=== PATIENT | male | born 1955 | race Caucasian/White ===

== ENCOUNTER → 2018-01-21 10:15 | Outpatient (CLI) | payer MEDICARE, OTHER, SELFPAY ==
--- NOTE | 2018-01-21 10:44 | STE_ITS ---
Reason For Study: AFIB Stress Results Protocol: Dobutamine Maximum Predicted HR: 160 bpm Target HR: 136 bpm% Maximum Predicted HR: 85 % DurationHeart Rate Stage (mm:ss) (bpm) BPDose Comment BASELINE 74 169/10 0 0.3 ML DEFINITY STAGE 1 4:00 76 167/[id number] ML DEFINITY STAGE 2 3:00 96 176/44278.00 STAGE 3 3:00 10 8 178/45418.00.25 MG ATROPINE/0.1 ML DEFINITY STAGE 4 3:59 13 6 135/8740.00.25 MG ATROPINE/0.1 ML DEFINITY RECOVERY 100 139/1 07 0.1 ML DEFINITY Stress Duration: 13:59 mm:ss Maximum Stress HR: 136 bpm Baseline Echocardiogram Findings Stress Echo Wall motion Data Resting WMIntermediate WMStress WM Resting Wall Motion Wall Motion Stress No regional wall motion No regional wall motion abnormalities noted. abnormalities noted. EKG Data The baseline ECG demonstrates normal sinus rhythm with at rate of _ beats per minute. The patient was titrated from 10 mcg to a maximum of 40 mcg of dobutamine during the stress. The maximum heart rate attained was 136 beats per minute. This was 85% of maximum predicted heart rate. During dobutamine infusion, there were no ST or T wave changes noted to suggest ischemia. No clinical angina was noted. Interpretation Summary The study was technically difficult. Contrast injection was performed. Normal adequate dobutamine echocardiogram. Negative for ischemia by EKG and echocardiographic criteria. No anginal symptoms noted. Rare PVCs and ventricular couplets noted, which is a nonspecific finding given dobutamine infusion. Hypertensive blood pressure response to dobutamine. Final LVEF is 75%. Decreased sensitivity due to poor echo windows requiring Definity agent. Test terminated due to the attainment of target heart rate. No complications. Ordering Physician: Keron Monteiro Referring Physician: Keron Monteiro Performed By: Viji Marie, CLARACS, RVT
[2018-01-21 11:55] LABS: Cholesterol 137 mg/dL (200); High Density Lipoprotein 47 mg/dL; Triglycerides 111 mg/dL; Very Low Density Lipoprotein 22 mg/dL (5-40)
== END ==
PROVIDERS: Family Provider Family Medicine; PCP Family Medicine; Visit Provider Internal Medicine Cardiovascular Disease
DX: I48.91 Unspecified atrial fibrillation (principal); I48.92 Unspecified atrial flutter; E78.5 Hyperlipidemia, unspecified
CPT/HCPCS: 36415; 80061; 93017; 93350; J7030; Q9957; A4216; C8928

== ENCOUNTER → 2018-04-17 07:53 | Outpatient (CLI) | payer MEDICARE, OTHER, SELFPAY ==
[2018-04-17] VITALS (8 sets, daily range): BP systolic 133–174; BP diastolic 83–108; PULSE 63–86; RESP 16–18; TEMP 36.2–36.7; O2SAT 92–96; BMI 27.7
[2018-04-17] MEDS: Acetaminophen 500 MG Tablet 1000 MG PO (08:41)
[2018-04-17] MEDS: DiphenhydrAMINE 50 MG/ML Syringe 25 MG IV (08:43)
[2018-04-17] MEDS: MethylPREDNISolone 125 MG/2 ML Vial 100 MG IV (08:45)
== END ==
PROVIDERS: Family Provider Family Medicine; PCP Family Medicine; Visit Provider Internal Medicine Hematology & Oncology
DX: G35 Multiple sclerosis (principal)
CPT/HCPCS: 96365; 96366 ×3; 96374; 96375; J7040; J7050; A4216; J2350

== ENCOUNTER → 2018-05-06 12:29 | Outpatient (CLI) | payer MEDICARE, OTHER, SELFPAY | PROVIDERS: Family Provider Family Medicine; PCP Family Medicine; Visit Provider Urology | DX: N39.0 Urinary tract infection, site not specified (principal) | CPT/HCPCS: 87086; 87088; 87186 ==

== ENCOUNTER 2018-05-28 10:55 | Inpatient (IN) | payer MEDICARE, OTHER, SELFPAY ==
[2018-05-28] VITALS (9 sets, daily range): BP systolic 119–151; BP diastolic 79–98; PULSE 68–88; RESP 15–20; TEMP 36.9–37.1; O2SAT 90–96; BMI 27.7; BMI 27.9
--- NOTE | 2018-05-28 12:54 | ED.VIS.GEN ---
History of Present Illness Chief Complaint: GI Bleed Informant: Patient, Family Onset: Yesterday Context: Gradual Onset Timing: Intermittent - 15-20 episodes Quality: Red blood, somewhat maroon-orange Location: Rectal Current Severity: Moderate Maximum Severity: Moderate Worsened by: Nothing Relieved by: Nothing Associated Symptoms: no abd pain. no n/v. malaise and a little lightheaded. no presyncope/syncop Narrative: On Eliquis for PE last july. Prior similar symptoms: No - Past Medical History (1) Atrial septal defect Status: Chronic (2) Hypertension Status: Chronic (3) Multiple sclerosis Status: Chronic (4) Obstructive sleep apnea Status: Chronic (5) Paroxysmal atrial fibrillation Status: Chronic (6) Pulmonary embolism Status: Chronic (7) Bladder cancer Status: Resolved Past Medical History - Allergies and Home Meds Allergies/Adverse Reactions: Allergies No Known Allergies Allergy (Verified 02/25/18 09:45) Primary Care Physician: Amanuel Duckworth III, MD [Primary Care Provider] - Surgical History: - - colonoscopy last week Lives: Spouse/ Significant Other Smoking Status: Never smoker - Family History Paternal Family History: Family History (Last Reviewed 02/27/18 @ 08:45 by ANNELISE Joseph) Father CAD (coronary artery disease) Hypertension Mother Hypertension Family History: Reports: Hypertension Sibling Family History: Family History (Last Reviewed 02/27/18 @ 08:45 by ANNELISE Joseph) Father CAD (coronary artery disease) Hypertension Mother Hypertension Family History: Reports: - - Sister with history of MS and due to a pulmonary embolism Maternal Family History: Family History (Last Reviewed 02/27/18 @ 08:45 by ANNELISE Joseph) Father CAD (coronary artery disease) Hypertension Mother Hypertension Family History: Reports: No pertinent history Review of Systems All systems negative except as indicated General: Reports: Malaise, - - a little lightheaded Gastrointestinal: Reports: Hematochezia. Denies: Abdominal pain, Nausea, Vomiting, Melena Neurological: Reports: Parasthesia - on left side, chronic Physical Exam Vital Signs/Narrative: Vital Signs Temp Pulse Resp BP Pulse Ox 05/28/18 12:35 79 19 H 125/97 H 91 05/28/18 10:56 98.4 F 79 16 119/85 H 96 General: Well nourished, Well developed Head: Normocephalic, Atraumatic Eyes: Perrl, EOMI ENT: Moist mucous membranes, No rhinorrhea Neck: Supple, Nontender Cardiovascular: Regular rate, Regular rhythm, No murmurs Respiratory: No distress, CTA bilaterally, Chest nontender Abdomen: Soft, Nontender, Nondistended, Hyperactive bowel sounds Rectal: Nontender Back: Nontender, Normal Inspection Extremities: Nontender, No edema Skin: Normal color, No rash Neurological: Alert, Oriented x3, Cranial nerves II-XII grossly intact, Normal Strength Psychological: Normal affect Diagnostic/Tx/Re-eval Laboratory Results 05/28/18 05/28/18 05/28/18 Range/Units 11:10 11:10 11:10 WBC 9.3 (4.4-11.0) K/mm3 RBC 5.94 (4.6-6.2) M/mm3 Hgb 17.0 H (13.0-16.5) g/dl Hct 51.8 (40-54) % MCV 87.2 (80-94) fL MCH 28.6 (27.0-32.0) pg MCHC 32.8 (32-36) g/gl RDW 13.6 (11.6-14.6) % RDW Differential 43.3 (35.1-43.9) fl Plt Count 234 (150-450) K/mm3 MPV 10.8 (6.2-12.0) fl Immature Gran % (Auto) 0.300 (0.0-0.9) % Neut % (Auto) 63.2 (47-70) % Lymph % (Auto) 18.6 L (19-41) % [place] % (Auto) 15.6 H (0-10) % Eos % (Auto) 2.0 (0-5) % Baso % (Auto) 0.3 (0-1) % Absolute Neuts (auto) 5.9 (2.0-7.7) X10^3/uL Absolute Lymphs (auto) 1.73 (0.83-4.51) X10^3/ul Total Counted Not Reportable Sodium 144 (136-145) mmol/L Potassium 4.3 (3.5-5.1) mmol/L Chloride 108 H (98-107) mmol/L Carbon Dioxide 27.0 (21.0-32.0) mmol/L Anion Gap 9 (5-15) BUN 20 H (7-18) mg/dL Creatinine 1.44 H (0.70-1.30) mg/dL Estim Creat Clear Calc 70.52 ml/min Est GFR (MDRD) Af Amer 64 (>60) mL/min Est GFR (MDRD) Non-Af 53 L (>60) mL/min BUN/Creatinine Ratio 13.9 (10-20) RATIO Glucose 78 (74-106) mg/dL Calcium 9.2 (8.5-10.1) mg/dL Total Bilirubin 0.70 (0.20-1.00) mg/dL AST 16 (15-37) U/L ALT 19 (16-61) U/L Alkaline Phosphatase 109 (45-117) U/L Total Protein 7.3 (6.4-8.2) g/dL Albumin 3.3 (3.2-5.0) g/dL Globulin 4.0 (2.2-4.2) g/dL Albumin/Globulin Ratio 0.8 L (0.9-2.4) RATIO Blood Type O POSITIVE Antibody Screen NEGATIVE - Medical Decision Making Patient remained clinically and hemodynamically stable. Rectal exam shows dark red blood without pooling or melena. No active bleeding at this time. Labs show an elevated BUN but only 20, his hemoglobin is 17, stable. I am mostly concerned about the fact that he is anticoagulated on Eliquis. His last colonoscopy was 2 years ago and showed no diverticulosis, just internal and external hemorrhoids but otherwise normal. I suspect this is a lower GI bleed, however not able to rule out the possibility of an upper. No nausea or vomiting or abdominal discomfort and his exam is very benign. Discussed with Dr. Redman since we have no acid cutter available here, she is comfortable consulting and having him admitted here. Discussed with Dr. Stern, requests PCU. ED Disposition - Plan for ED Patient: Disposition: Acute Care Hospital [facility] Chief Complaint: GI Bleed Diagnosis: GI bleeding, Anticoagulated
--- NOTE | 2018-05-28 12:57 | EKG12_ITS ---
Test Reason : Blood Pressure : / mmHG Vent. Rate : 083 BPM Atrial Rate : 083 BPM P-R Int : 158 ms QRS Dur : 090 ms QT Int : 378 ms P-R-T Axes : 019 -50 014 degrees QTc Int : 444 ms Normal sinus rhythm Left anterior fascicular block Abnormal ECG Confirmed by CHARMAINE WINCHESTER, ESTUARDO ([id number]), acquisition editor SHANTI PARKS ([id number]) on 06/01/2018 2:38:55 PM Referred By: NATANAEL Confirmed By:ESTUARDO MONTANO MD
[2018-05-28 13:04] LABS: Absolute Lymphocyte Count 1.73 X10^3/ul (0.83-4.51); Absolute Neutrophil Count 5.9 X10^3/uL (2.0-7.7); Basophil# 0.03 X10^3/uL; Basophil% 0.3 % (0-1); Eosinophil# 0.19 X10^3/uL; Hematocrit 51.8 % (40-54); Lymphocyte # 1.73 X10^3/ul (4.0); Lymphocyte % 18.6 % (19-41); Mean Corp Hgb Conc 32.8 g/gl (32-36); Mean Corpuscular Hgb 28.6 pg (27.0-32.0); Mean Corpuscular Volume 87.2 fL (80-94); Mean Platelet Vol. 10.8 fl (6.2-12.0); Monocyte# 1.45 X10^3/uL; Monocyte% 15.6 % (0-10); Neutrophil # 5.89 X10^3/uL (2.7-7.7); Neutrophil % 63.2 % (47-70); Platelet Count 234 K/mm3 (150-450); RBC Distribution Width CV 13.6 % (11.6-14.6); RBC Distribution Width SD 43.3 fl (35.1-43.9); Red Blood Count 5.94 M/mm3 (4.6-6.2); White Blood Count 9.3 K/mm3 (4.4-11.0)
[2018-05-28 13:05] LABS: POSITIVE COUNT NO; POSITIVE DIFFERENTIAL NO; POSITIVE MORPHOLOGY NO
[2018-05-28 13:15] LABS: ALB/GLOB Ratio 0.8 RATIO (0.9-2.4); AST(SGOT) 16 U/L (15-37); Alanine Aminotransfer ALT/SGPT 19 U/L (16-61); Albumin, Serum 3.3 g/dL (3.2-5.0); Alkaline Phosphatase 109 U/L (45-117); Anion Gap 9 (5-15); BUN 20 mg/dL (7-18); BUN/Creat Ratio 13.9 RATIO (10-20); Calcium,Total 9.2 mg/dL (8.5-10.1); Chloride 108 mmol/L (98-107); Creatinine, Serum 1.44 mg/dL (0.70-1.30); EST Glomerular Filtration Rate 53 mL/min (>60); Est Glom Filt Rate - Afr Amer 64 mL/min (>60); Estimated Creatinine Clearance 70.52 ml/min; Glucose 78 mg/dL (74-106); Potassium 4.3 mmol/L (3.5-5.1); Protein, Total 7.3 g/dL (6.4-8.2); Sodium Level 144 mmol/L (136-145)
--- NOTE | 2018-05-28 16:17 | NURSING ---
DR GIPSON FOR DR SANTOYO
--- NOTE | 2018-05-28 16:55 | NURSING ---
126 GI BLEEDING ASHELFAH
--- NOTE | 2018-05-28 17:17 | NURSING ---
126 GI BLEED, ACUTE KIDNEY INJURY ASHELFAH
--- NOTE | 2018-05-28 17:27 | HP.PCM_ITS ---
Problem List (1) GI bleeding Status: Acute (2) Obstructive sleep apnea Status: Chronic (3) Paroxysmal atrial fibrillation Status: Chronic (4) Atrial septal defect Status: Chronic (5) Multiple sclerosis Status: Chronic (6) Bladder cancer Status: Resolved (7) Pulmonary embolism Status: Chronic Qualifiers: Pulmonary embolism type: saddle Chronicity: acute Acute cor pulmonale presence: with acute cor pulmonale Qualified Code(s): I26.02 - Saddle embolus of pulmonary artery with acute cor pulmonale (8) Hypertension Status: Chronic Qualifiers: History of Present Illness Date of Admission: 05/28/18 Chief Complaint: Bleeding per rectum. The patient is a 62 year old M with past medical history as mentioned above presented to the emergency room because of bleeding per rectum. According to his , symptoms started last night with diarrhea initially, loose stool and air this morning, she noticed that the stools determined to be bright red, described as brick colored stool, moderate amount and has been getting worse since injury this morning. She mentioned that he had about up to 20 episodes of diarrhea and since he looks more, it is mixed with blood. He denied abdominal pain, nausea vomiting. Denied epistaxis, hemoptysis, hematemesis, or hematuria. He denied chest pain or shortness of breath. He denied dizziness or lightheadedness. He has a history of PE as well as paroxysmal A. fib and he has been on Eliquis for anti-coagulation. He has a history of multiple sclerosis with chronic left-sided hemiparesis and he has been bedridden for a long time. He has a history of paroxysmal atrial fibrillation, has been on Coreg for rate control and Eliquis for anticoagulation. During his , he had history of UTI a week ago and he has been on antibiotics that was completed. In the emergency department, his vital signs are stable. His routine blood work is remarkable for BUN of 20, creatinine of 1.44, otherwise normal. His LFT was unremarkable. EKG revealed normal sinus rhythm without evidence of acute ischemic changes. He is being admitted for GI bleed and acute kidney injury. Past Medical History Past Medical History (Chronic Problems): Chronic Problems (Last Reviewed 02/27/18 @ 08:45 by ANNELISE Joseph) Abnormal EKG (Chronic) Obstructive sleep apnea (Chronic) Paroxysmal atrial fibrillation (Chronic) Atrial septal defect (Chronic) Multiple sclerosis (Chronic) Pulmonary embolism (Chronic) Hypertension (Chronic) Medical History: Medical History (Last Reviewed 02/27/18 @ 08:45 by Sita Cyr NP-[place]) Abnormal EKG (Chronic) R94.31 Obstructive sleep apnea (Chronic) G47.33 Paroxysmal atrial fibrillation (Chronic) I48.0 Atrial septal defect (Chronic) Q21.1 Multiple sclerosis (Chronic) G35 Bladder cancer (Resolved) Pulmonary embolism (Chronic) I26.99 Hypertension (Chronic) I10 Kidney stones N20.0 Atrial fibrillation with RVR (Resolved) I48.91 Allergies No Known Allergies Allergy (Verified 02/25/18 09:45) Home Medications: Ambulatory Orders Medication Instructions Recorded Lisdexamfetamine Dimesylate 50 mg PO DAILY cap 08/29/17 [Vyvanse] Vitamin E (Dl,Tocopheryl Acet) 400 units PO DAILY 09/14/17 [Vitamin E] meclizine 25 mg tablet 25 mg PO PRN PRN 11/04/17 ocrelizumab 30 mg/mL intravenous 600 mg IV .COMPLEX 11/04/17 solution tizanidine 4 mg capsule 4 mg PO Q8H PRN 11/04/17 lisinopril 20 mg tablet 20 mg PO DAILY 02/25/18 albuterol sulfate 2.5 mg/3 mL 2.5 mg INHALATION Q4H PRN #180 vial 03/04/18 (0.083 %) solution for nebulization Simvastatin 20 mg PO QHS 04/17/18 Apixaban [Eliquis] 5 mg PO BID 05/28/18 Aspirin E.C. [Ecotrin] 81 mg PO DAILY 05/28/18 Carvedilol [Coreg (Beta [place])] 12.5 mg PO BID 05/28/18 Cholecalciferol (VIT D3) [Vitamin 5,000 unit PO DAILY 05/28/18 D3] Duloxetine Hcl [Cymbalta] 30 mg PO DAILY 05/28/18 Multivitamins,Therapeutic 1 tablet PO DAILY 05/28/18 [Multivitamin] Surgical History: Surgical History (Last Reviewed 02/27/18 @ 08:45 by Sita Cyr NP-C) S/P vasectomy Z98.52 ureteroscopy Surgical History: - - colonoscopy. Lives: Spouse/ Significant Other Smoking Status: Never smoker Tobacco Use: Non-smoker Alcohol: None Drugs: None - *Family History Paternal Family History: Family History (Last Reviewed 02/27/18 @ 08:45 by ANNELISE Joseph) Father CAD (coronary artery disease) Hypertension Mother Hypertension History Items: Hypertension Sibling Family History: Family History (Last Reviewed 02/27/18 @ 08:45 by ANNELISE Joseph) Father CAD (coronary artery disease) Hypertension Mother Hypertension History Items: - - Sister with history of MS and due to a pulmonary embolism Maternal Family History: Family History (Last Reviewed 02/27/18 @ 08:45 by ANNELISE Joseph) Father CAD (coronary artery disease) Hypertension Mother Hypertension History Items: No pertinent history Review of Systems Constitutional: Denies: Anorexia, Chills, Fever, Weakness Eyes: Denies: Blurred vision, Double vision, Drainage, Redness HEENT: Denies: Difficulty Hearing, Ear Pain, Eye Pain, Nasal bleeding, Post Nasal Drip, Sore Throat Cardiovascular: Denies: Chest Pain, Chest Pressure, Chest Tightness, Heaviness, Light Headedness, Palpitations, Syncope Respiratory: Denies: Cough, Pleuritic Pain, Shortness of Breath, Sputum production, Wheezing Gastrointestinal: Reports: Diarrhea, Hematochezia. Denies: Abdominal Pain, Constipation, Hematemesis, Nausea, Melena, Vomiting Genitourinary: Denies: Dysuria, Frequency, Hematuria Musculoskeletal: Denies: Arm Pain, Back Pain, Foot Pain Skin: Denies: Dryness, Rash Neurological: Denies: Balance problems, Change in Speech, Slurred speech, Confusion, Headaches, Incoordination, Numbness Psychiatric: Reports: Depression. Denies: Anxiety Endocrine: Denies: Change in Body Habitus, Polydipsia VTE Information - Inpt Only VTE Present on Admission: No VTE Mechan Device Prophylaxis: SCD's VTE Pharm Prophylaxis ordered?: No Patient Problems: Active and Suspected Problems (Last Reviewed 02/27/18 @ 08:45 by ANNELISE Joseph) GI bleeding (Acute) Anticoagulated (Acute) - Physical Exam General: Alert, Oriented x3, Cooperative, No apparent distress HEENT: Atraumatic, PERRLA, EOMI, Normocephalic Oral: Moist Mucosa, No Gingival or Mucosal Lesions/ Ulcerations Neck: Supple, No JVD, Negative Carotid Bruits, Trachea Midline, Thyroid Normal Size and Texture Lungs: Clear to auscultation, No rhonchi, No wheeze, No rales, Diminished Cardiovascular: Regular rate, Regular Rhythm, Normal S1, Normal S2, PMI Normal Abdomen: Bowel Sounds Present, Soft, Non Tender, Non-Distended, No Hepato- splenomegaly Extremities: No clubbing, No cyanosis, No edema Skin: No rashes, No breakdown Lymphatic: No Cervical, Supraclavicular, or Inguinal Adenopathy Neurological: Cranial nerves II-XII grossly intact, - - Left side hemiparesis. Psych/Mental Status: Normal Affect, Appropriate, Alert and oriented to time, place, person, mood and affect Vital Signs Temp Pulse Resp BP Pulse Ox 98.4 F 88 20 H 125/90 H 92 05/28/18 10:56 05/28/18 17:07 05/28/18 17:07 05/28/18 17:07 05/28/18 17:07 Oxygen Delivery Method Room Air Weight: 240 lb Body Mass Index (BMI) 27.7 Laboratory Tests Past 24 Hrs 05/28/18 05/28/18 05/28/18 11:10 11:10 11:10 WBC 9.3 RBC 5.94 Hgb 17.0 H Hct 51.8 MCV 87.2 MCH 28.6 MCHC 32.8 RDW 13.6 RDW Differential 43.3 Plt Count 234 MPV 10.8 Immature Gran % (Auto) 0.300 Neut % (Auto) 63.2 Lymph % (Auto) 18.6 L [place] % (Auto) 15.6 H Eos % (Auto) 2.0 Baso % (Auto) 0.3 Absolute Neuts (auto) 5.9 Absolute Lymphs (auto) 1.73 Total Counted Not Reportable Sodium 144 Potassium 4.3 Chloride 108 H Carbon Dioxide 27.0 Anion Gap 9 BUN 20 H Creatinine 1.44 H Estim Creat Clear Calc 70.52 Est GFR (MDRD) Af Amer 64 Est GFR (MDRD) Non-Af 53 L BUN/Creatinine Ratio 13.9 Glucose 78 Calcium 9.2 Total Bilirubin 0.70 AST 16 ALT 19 Alkaline Phosphatase 109 Total Protein 7.3 Albumin 3.3 Globulin 4.0 Albumin/Globulin Ratio 0.8 L Blood Type O POSITIVE Antibody Screen NEGATIVE Assessment/Plan All Active Problems (Last Reviewed 02/27/18 @ 08:45 by Sita Cyr, JEANINE-C) GI bleeding (Acute) Anticoagulated (Acute) Bladder cancer (Resolved) Atrial fibrillation with RVR (Resolved) This is a 62 years old male patient presented to the emergency room because of bleeding per rectum, found to have acute kidney injury and he is being admitted for evaluation. #1 GI bleed: Likely lower GI bleed. He had colonoscopy back in 2016 that revealed internal hemorrhoids. Patient has been on antibiotics for UTI recently. Symptoms started with diarrhea and then he started having rectal bleeding. At this time, vital signs are stable. Hemoglobin is 17.0 g/dL. Plan : Admit to PCU, cardiac monitoring, keep on clear liquids, H&H every 8 hours, IV fluids, pro time and INR, repeat CBC and BMP tomorrow morning, general surgery consult, transfuse if hemoglobin less than 8 g/dL, stool for C. difficile, stool for enteric pathogens, PT OT evaluation and treatment. #2 acute kidney injury: Secondary to dehydration and GI bleed. Vital signs are stable. Baseline kidney function is normal. Admission creatinine is 1.44. Plan for IV fluids, input output chart, repeat BMP tomorrow morning. #3 paroxysmal atrial fibrillation: Heart rate stable, blood pressure stable. Continue Coreg for rate control, hold Eliquis. #4 hypertension: Blood pressure stable, continue Coreg and lisinopril. #5 multiple sclerosis: With residual left-sided hemiparesis. Plan for PT OT, supportive treatment. #6 history of pulmonary embolism: Hold Eliquis, pro time and INR. #7 DVT prophylaxis: SCDs. This note was generated with [employer] dictation software. It may contain incorrect words, spelling, and punctuation that were not noted in checking the note before signing. Code Visit Inpatient E&M: 27206 Init Hosp L3
--- NOTE | 2018-05-28 17:32 | NURSING ---
Rupali in ER notified may transfer patient to PCU.
[2018-05-28 18:23] LABS: Hematocrit 50.1 % (40-54); Hemoglobin 16.9 g/dl (13.0-16.5)
--- NOTE | 2018-05-28 18:23 | PCM.CONS.GEN ---
Problem List (1) GI bleeding Status: Acute Qualifiers: GI bleed type/associated pathology: unspecified gastrointestinal hemorrhage type Qualified Code(s): K92.2 - Gastrointestinal hemorrhage, unspecified Reason for Consult Date of Consultation: 05/28/18 History of Present Illness: The patient is a 62 year old M who I am being asked to see with a tentative diagnosis of GI bleeding. Been requested to see him by hospitalist Dr. Stern and a written copy of my surgical consult recommendations will be returned to him.. Patient is a 8-year-old gentleman. He completed a course of antibiotic 1 week ago for urinary tract infection. He initiated as having severe diarrhea. As the diarrhea progressed there was suggestion of more brick red maroon type appearance. The patient has been on Eliquis treatment for acute saddle pulmonary embolus and he has been maintained on 81 mg aspirin therapy. He has multiple sclerosis and no longer walks. It is of note however that his white blood cell count is 9.3 and his hemoglobin 17 and hematocrit is 51.8 and platelet count is 234,000 with 63% neutrophils. BUN is 20 and creatinine 1.44 . Liver function tests are normal. Unfortunately the patient cannot sense his abdomen. He has had multiple kidney stones with no discomfort. He denies abdominal pain but that is not reliable. He has no previous history of peptic ulcer disease. It is of note that January 18, 2016 I performed a colonoscopy for him. That was performed for screening. There were no acute findings at that time other than some mild internal hemorrhoids. No diverticulosis was commented upon. It is of note that January 25, [address] scan of the abdomen. Also too that did not comment about diverticulosis. The patient recently has had several falls. He no longer has true utilization of his lower extremities. 's medical problems include paroxysmal atrial fibrillation and pulmonary embolization with onset of Eliquis for anticoagulation and continuation of his low-dose aspirin therapy. He denies additional oral medication like NSAIDs or ulcerogenic medication. He has not had any nausea or vomiting Past Medical History Past Medical History (Chronic Problems): Chronic Problems (Last Reviewed 02/27/18 @ 08:45 by ANNELISE Joseph) Abnormal EKG (Chronic) Obstructive sleep apnea (Chronic) Paroxysmal atrial fibrillation (Chronic) Atrial septal defect (Chronic) Multiple sclerosis (Chronic) Pulmonary embolism (Chronic) Hypertension (Chronic) Medical History: Medical History (Last Reviewed 02/27/18 @ 08:45 by Sita Cyr NP-[place]) Abnormal EKG (Chronic) R94.31 Obstructive sleep apnea (Chronic) G47.33 Paroxysmal atrial fibrillation (Chronic) I48.0 Atrial septal defect (Chronic) Q21.1 Multiple sclerosis (Chronic) G35 Bladder cancer (Resolved) Pulmonary embolism (Chronic) I26.99 Hypertension (Chronic) I10 Kidney stones N20.0 Atrial fibrillation with RVR (Resolved) I48.91 Allergies No Known Allergies Allergy (Verified 02/25/18 09:45) Home Medications: Ambulatory Orders Medication Instructions Recorded Lisdexamfetamine Dimesylate 50 mg PO DAILY cap 08/29/17 [Vyvanse] Vitamin E (Dl,Tocopheryl Acet) 400 units PO DAILY 09/14/17 [Vitamin E] meclizine 25 mg tablet 25 mg PO PRN PRN 11/04/17 ocrelizumab 30 mg/mL intravenous 600 mg IV .COMPLEX 11/04/17 solution tizanidine 4 mg capsule 4 mg PO Q8H PRN 11/04/17 lisinopril 20 mg tablet 20 mg PO DAILY 02/25/18 albuterol sulfate 2.5 mg/3 mL 2.5 mg INHALATION Q4H PRN #180 vial 03/04/18 (0.083 %) solution for nebulization Simvastatin 20 mg PO QHS 04/17/18 Apixaban [Eliquis] 5 mg PO BID 05/28/18 Aspirin E.C. [Ecotrin] 81 mg PO DAILY 05/28/18 Carvedilol [Coreg (Beta Eugene)] 12.5 mg PO BID 05/28/18 Cholecalciferol (VIT D3) [Vitamin 5,000 unit PO DAILY 05/28/18 D3] Duloxetine Hcl [Cymbalta] 30 mg PO DAILY 05/28/18 Multivitamins,Therapeutic 1 tablet PO DAILY 05/28/18 [Multivitamin] Surgical History: Surgical History (Last Reviewed 02/27/18 @ 08:45 by Sita Cyr NP-C) S/P vasectomy Z98.52 ureteroscopy Surgical History: - - colonoscopy. Lives: Spouse/ Significant Other Smoking Status: Never smoker Tobacco Use: Non-smoker Alcohol: None Drugs: None - *Family History Paternal Family History: Family History (Last Reviewed 02/27/18 @ 08:45 by ANNELISE Joseph) Father CAD (coronary artery disease) Hypertension Mother Hypertension History Items: Hypertension Sibling Family History: Family History (Last Reviewed 02/27/18 @ 08:45 by ANNELISE Joseph) Father CAD (coronary artery disease) Hypertension Mother Hypertension History Items: - - Sister with history of MS and due to a pulmonary embolism Maternal Family History: Family History (Last Reviewed 02/27/18 @ 08:45 by ANNELISE Joseph) Father CAD (coronary artery disease) Hypertension Mother Hypertension History Items: No pertinent history Review of Systems Constitutional: Denies: Anorexia Eyes: Denies: Blurred vision HEENT: Denies: Difficulty Hearing Cardiovascular: Denies: Chest Pain Respiratory: Denies: Cough Gastrointestinal: Denies: Abdominal Pain Genitourinary: Denies: Dysuria Skin: Reports: Wounds, - - Multiple areas of excoriation bilateral calves. Denies: Jaundice Neurological: Reports: Balance problems Psychiatric: Denies: Anxiety Patient Problems: Active and Suspected Problems (Last Reviewed 02/27/18 @ 08:45 by ANNELISE Jsoeph) GI bleeding (Acute) Anticoagulated (Acute) - Physical Exam General: Alert, Oriented x3, Cooperative, No apparent distress HEENT: Atraumatic Oral: Moist Mucosa Neck: Supple, No JVD Lungs: Clear to auscultation Cardiovascular: Regular rate Abdomen: Bowel Sounds Present, Soft, Non Tender, Non-Distended, - - Rectal exam demonstrates some mild to moderate internal hemorrhoids. No tenderness but the patient is a sensate. No masses. Stool is medium brown. Extremities: No Calf Tenderness Neurological: - - A sensate from the abdomen distally Psych/Mental Status: Normal Affect Vital Signs Temp Pulse Resp BP Pulse Ox 98.5 F 79 15 131/79 H 92 05/28/18 18:20 05/28/18 18:20 05/28/18 18:20 05/28/18 18:20 05/28/18 18:20 Oxygen Delivery Method Room Air Laboratory Tests Past 24 Hrs 05/28/18 05/28/18 18:11 18:11 Hgb Pending Hct Pending PT Pending INR Pending Assessment/Plan All Active Problems (Last Reviewed 02/27/18 @ 08:45 by ANNELISE Joseph) GI bleeding (Acute) Anticoagulated (Acute) Bladder cancer (Resolved) Atrial fibrillation with RVR (Resolved) The patient does not appear to be in an acute surgical emergency. His stool is medium brown. Although it may be Hemoccult positive he currently does not appear to have a significant GI bleed. He is anticoagulated both on aspirin and on Eliquis. This would appear to be a medical bleed. His symptoms do not highly suggest an upper GI source. He has had a reasonably recent colonoscopy which did not demonstrate polyp or mass or diverticular disease. His digital rectal exam although demonstrating hemorrhoids does not suggest bright red blood. At this point I do not believe that he requires emergency surgical intervention. He is anticoagulation should be held. This clearly will place him at increased risk for recurrent deep venous thrombosis and pulmonary embolism. A decision will need to be made as to whether he might be a candidate for a inferior vena cava filter. That however would likely end up being a permanent filter because of his multiple sclerosis and progressive lower extremity disuse. Family members are aware of the increased risk of vena cava filter placement particularly if it is to be presumed to be permanent. I will hold the patient n.p.o. after midnight. This will allow for medical evaluation of the patient in the morning. I do not believe that urgent endoscopy is required at this moment. The etiology to the patient's diarrhea apparently is not determined. Despite the normal white blood cell count I recommended C. difficile because of the diffuseness of the diarrhea and the recent history of antibiotic therapy. This may simply be a diarrhea related mucosal irritation and sloughing causing the bleeding and otherwise anticoagulate patient. Appreciate the opportunity of assisting with surgical care and will follow with you. Uzair Duckworth M.D., F.A.C.S.
[2018-05-28 18:27] LABS: International Normalized Ratio 1.3; Prothrombin Time (Protime)PT. 15.9 SECONDS (11.7-14.9)
[2018-05-28] MEDS: 0.9% Normal Saline 1,000 ML 100 ML IV (18:57)
[2018-05-28] MEDS: Carvedilol 12.5 MG Tablet PO (22:40)
[2018-05-28] MEDS: Atorvastatin Calcium 10 MG Tablet PO (22:41)
[2018-05-29] VITALS (9 sets, daily range): BP systolic 106–159; BP diastolic 66–107; PULSE 64–87; RESP 16–18; TEMP 36.4–36.8; O2SAT 92–100
[2018-05-29] MEDS: 0.9% Normal Saline 1,000 ML 100 ML IV ×2 (04:10→15:34)
[2018-05-29 05:55] LABS: Absolute Lymphocyte Count 1.42 X10^3/ul (0.83-4.51); Absolute Neutrophil Count 4.1 X10^3/uL (2.0-7.7); Basophil# 0.02 X10^3/uL; Basophil% 0.3 % (0-1); Eosinophils% 4.4 % (0-5); Hematocrit 48.1 % (40-54); Hemoglobin 15.8 g/dl (13.0-16.5); Lymphocyte # 1.42 X10^3/ul (4.0); Lymphocyte % 20.8 % (19-41); Mean Corp Hgb Conc 32.8 g/gl (32-36); Mean Corpuscular Hgb 28.9 pg (27.0-32.0); Mean Corpuscular Volume 88.1 fL (80-94); Monocyte# 1.01 X10^3/uL; Monocyte% 14.8 % (0-10); Neutrophil # 4.06 X10^3/uL (2.7-7.7); Neutrophil % 59.4 % (47-70); Platelet Count 192 K/mm3 (150-450); RBC Distribution Width CV 13.5 % (11.6-14.6); RBC Distribution Width SD 43.9 fl (35.1-43.9); Red Blood Count 5.46 M/mm3 (4.6-6.2); White Blood Count 6.8 K/mm3 (4.4-11.0)
[2018-05-29 05:58] LABS: POSITIVE COUNT NO; POSITIVE DIFFERENTIAL NO; POSITIVE MORPHOLOGY NO
[2018-05-29 06:22] LABS: Anion Gap 8 (5-15); BUN 19 mg/dL (7-18); BUN/Creat Ratio 16.2 RATIO (10-20); Calcium,Total 8.6 mg/dL (8.5-10.1); Chloride 112 mmol/L (98-107); Creatinine, Serum 1.17 mg/dL (0.70-1.30); EST Glomerular Filtration Rate 67 mL/min (>60); Est Glom Filt Rate - Afr Amer 82 mL/min (>60); Glucose 84 mg/dL (74-106); Potassium 3.9 mmol/L (3.5-5.1); Sodium Level 143 mmol/L (136-145)
--- NOTE | 2018-05-29 06:33 | PN.SURG_ITS ---
Patient Problems: Active and Suspected Problems (Last Reviewed 02/27/18 @ 08:45 by ANNELISE Joseph) GI bleeding (Acute) Anticoagulated (Acute) Subjective: Pt comfortable Brown stool noted - Physical Exam Lungs: Clear to auscultation Abdomen: Soft, Non Tender Vital Signs Temp Pulse Resp BP Pulse Ox 97.6 F L 73 18 106/66 92 05/29/18 04:30 05/29/18 04:30 05/29/18 04:30 05/29/18 04:30 05/29/18 04:30 Oxygen Delivery Method Room Air Weight: 241 lb 10.026 oz Body Mass Index (BMI) 27.9 Intake and Output for Last 24 Hours 05/27/18 05/28/18 05/29/18 23:59 23:59 23:59 Intake Total 602 / 602 570 / 570 Output Total 100 / 100 50 / 50 Balance 502 / 502 520 / 520 Microbiology Past 72 Hours 05/28/18 18:10 C. difficile DNA Amplification - Final Stool Laboratory Tests Past 24 Hrs 05/28/18 05/28/18 05/29/18 18:11 18:11 05:30 WBC RBC Hgb 16.9 H Hct 50.1 MCV MCH MCHC RDW RDW Differential Plt Count MPV Immature Gran % (Auto) Neut % (Auto) Lymph % (Auto) [place] % (Auto) Eos % (Auto) Baso % (Auto) Absolute Neuts (auto) Absolute Lymphs (auto) Total Counted PT 15.9 H INR 1.3 Sodium 143 Potassium 3.9 Chloride 112 H Carbon Dioxide 23.0 Anion Gap 8 BUN 19 H Creatinine 1.17 Estim Creat Clear Calc 86.80 Est GFR (MDRD) Af Amer 82 Est GFR (MDRD) Non-Af 67 BUN/Creatinine Ratio 16.2 Glucose 84 Calcium 8.6 05/29/18 05:30 WBC 6.8 RBC 5.46 Hgb 15.8 Hct 48.1 MCV 88.1 MCH 28.9 MCHC 32.8 RDW 13.5 RDW Differential 43.9 Plt Count 192 MPV 10.0 Immature Gran % (Auto) 0.300 Neut % (Auto) 59.4 Lymph % (Auto) 20.8 [place] % (Auto) 14.8 H Eos % (Auto) 4.4 Baso % (Auto) 0.3 Absolute Neuts (auto) 4.1 Absolute Lymphs (auto) 1.42 Total Counted Not Reportable PT INR Sodium Potassium Chloride Carbon Dioxide Anion Gap BUN Creatinine Estim Creat Clear Calc Est GFR (MDRD) Af Amer Est GFR (MDRD) Non-Af BUN/Creatinine Ratio Glucose Calcium Medical Necessity - Tobacco Use Smoking Status: Never smoker Tobacco Use: Non-smoker Assessment/Plan All Active Problems (Last Reviewed 02/27/18 @ 08:45 by Sita Cyr, SEARCH COORDINATOR-C) GI bleeding (Acute) Anticoagulated (Acute) Bladder cancer (Resolved) Atrial fibrillation with RVR (Resolved) cdiff negative Hgb 15.8; likely secondary to hydration This issue of anticoagulation will not be solved unless scopes are done so will start bowel prep anika and plan EGD/Cscope with mac later today I have a low suspicion for a significant GI bleed at this time
[2018-05-29] MEDS: Electrolyte Solution/Peg's 4000 ML PO (08:23)
--- NOTE | 2018-05-29 11:03 | CASEMGMT ---
Face to Face with patient for initial transition planning/care coordination assessment. ELIZABETH PINEDA introduced self and role at [facility], pt voices understanding and consents to assessment at this time. Pt is sitting up in bed in no distress at this time. Pt is A/O x4 at this time and answers all questions appropriately at this time. Care providers, pharmacy, and demographics verified. See attached link. Pt voices no further concerns/needs at this time. Advised pt to ask for CM if any further questions/concerns/needs arise, voices understanding. PLAN: [place] ELIZABETH PINEDA
[2018-05-29] MEDS: Lisinopril 20 MG Tablet PO (11:11)
[2018-05-29] MEDS: Carvedilol 12.5 MG Tablet PO ×2 (11:11→21:13)
[2018-05-29] MEDS: DULoxetine Hcl 30 MG Capsule PO (11:12)
[2018-05-29] MEDS: LISDEXAMFETAMINE DIMESYLATE 50 MG CAPSULE PO (11:16)
--- NOTE | 2018-05-29 11:59 | PCM.PN.HOSP ---
Patient Problems: Active and Suspected Problems (Last Reviewed 02/27/18 @ 08:45 by ANNELISE Joseph) GI bleeding (Acute) Anticoagulated (Acute) Subjective: Patient is a 62-year-old male with a history of asthma A. fib, multiple sclerosis, history of PE, bladder cancer, JOSH and hypertension. He was admitted with a complaint of bleeding per rectum once on 518. He has started having diarrhea which was initially loose and subsequently noted that it was bright red. He is on Eliquis for anticoagulation for A. fib. He was admitted and is being worked up for rectal bleed. He is currently n.p.o. pending EGD and colonoscopy later today. Eliquis is on hold. Patient seen and examined today. He feels very well and has not had any diarrhea since admission chills, any cough or chest pain, shortness of breath, abdominal pain, any diarrhea vomiting. Review of systems otherwise negative he has not had any rectal bleeding again since admission. Vitals/I&O's: Vital Signs Temp Pulse Resp BP Pulse Ox 98 F 78 16 159/107 H 95 05/29/18 10:30 05/29/18 10:30 05/29/18 10:30 05/29/18 10:30 05/29/18 10:30 Oxygen Delivery Method Room Air Weight: 241 lb 10.026 oz Body Mass Index (BMI) 27.9 Intake and Output for Last 24 Hours 05/27/18 05/28/18 05/29/18 23:59 23:59 23:59 Intake Total 602 / 602 570 / 570 Output Total 100 / 100 50 / 50 Balance 502 / 502 520 / 520 General: Alert, Oriented x3, Cooperative, No apparent distress HEENT: Atraumatic, PERRLA, EOMI, Normocephalic Oral: Moist Mucosa Neck: Supple, No JVD, Negative Carotid Bruits Lungs: Clear to auscultation, Normal air movement, No rhonchi, No wheeze Cardiovascular: Regular rate, Normal S1, Normal S2, No murmurs, Irregular Rate Abdomen: Bowel Sounds Present, Soft, Non Tender, Non-Distended, No Hepato-splenomegaly Extremities: No edema, Capillary Refill Less than 3 Seconds Skin: No rashes, No breakdown Musculoskeletal: No Tenderness to Palpation of Joints or Extremities Lymphatic: No Cervical, Supraclavicular, or Inguinal Adenopathy Neurological: Cranial nerves II-XII grossly intact, - - Left-sided hemiplegia due to multiple sclerosis. Inability to dorsiflex left foot due to MS and hemiplegia Psych/Mental Status: Normal Affect, Appropriate, Alert and oriented to time, place, person, mood and affect Microbiology Past 72 Hours 05/28/18 18:10 Stool C. difficile DNA Amplification - Final Laboratory Results 05/28/18 18:11: PT 15.9 H, INR 1.3 05/28/18 18:11: Hgb 16.9 H, Hct 50.1 05/29/18 05:30: Sodium 143, Potassium 3.9, Chloride 112 H, Carbon Dioxide 23.0, Anion Gap 8, BUN 19 H, Creatinine 1.17, Estim Creat Clear Calc 86.80, Est GFR (MDRD) Af Amer 82, Est GFR (MDRD) Non-Af 67, BUN/Creatinine Ratio 16.2, Glucose 84, Calcium 8.6 05/29/18 05:30: WBC 6.8, RBC 5.46, Hgb 15.8, Hct 48.1, MCV 88.1, MCH 28.9, MCHC 32.8, RDW 13.5, RDW Differential 43.9, Plt Count 192, MPV 10.0, Immature Gran % (Auto) 0.300, Neut % (Auto) 59.4, Lymph % (Auto) 20.8, [place] % (Auto) 14.8 H, Eos % (Auto) 4.4, Baso % (Auto) 0.3, Absolute Neuts (auto) 4.1, Absolute Lymphs (auto) 1.42, Total Counted Not Reportable Current Medications Acetaminophen (Tylenol) 650 mg PO Q6H PRN PRN PRN Reason: Headache, pain, fever. Albuterol Sulfate (Ventolin Aerosols) 2.5 mg INHALATION Q4H PRN PRN PRN Reason: Shortness of breath, wheezing Atorvastatin Calcium (Lipitor) 10 mg PO QHS [facility] Last Admin: 05/28/18 22:41 Dose: 10 mg Carvedilol (Coreg) 12.5 mg PO BID [facility] Last Admin: 05/29/18 11:11 Dose: 12.5 mg Duloxetine HCl (Cymbalta) 30 mg PO DAILY [facility] Last Admin: 05/29/18 11:12 Dose: 30 mg Sodium Chloride () 1,000 mls @ 100 mls/hr IV .Q10H [facility] Last Admin: 05/29/18 04:10 Dose: 100 mls/hr Pantoprazole Sodium 40 mg/ (Sodium Chloride) 110 mls @ 330 mls/hr IV Q12 [facility] Last Admin: 05/29/18 11:12 Dose: 330 mls/hr Lisdexamfetamine Dimesylate (Vyvanse) 50 mg PO DAILY [facility] Last Admin: 05/29/18 11:16 Dose: 50 mg Lisinopril (Zestril) 20 mg PO DAILY [facility] Last Admin: 05/29/18 11:11 Dose: 20 mg Meclizine HCl (Antivert) 25 mg PO 4X/DAY PRN PRN PRN Reason: NAUSEA Ondansetron HCl (Zofran) 4 mg IV Q6H PRN PRN PRN Reason: NAUSEA/VOMITING Tizanidine HCl (Zanaflex) 4 mg PO Q8H PRN PRN Reason: MUSCLE SPASM Medical Necessity - Tobacco Use Smoking Status: Never smoker Tobacco Use: Non-smoker Assessment/Plan All Active Problems (Last Reviewed 02/27/18 @ 08:45 by Sita Cyr NP-C) GI bleeding (Acute) Anticoagulated (Acute) Bladder cancer (Resolved) Atrial fibrillation with RVR (Resolved) 62-year-old male presenting with a complaint of bleeding per rectum. He has been managed for AK I GI bleed. He has been EGD and colonoscopy. 1. Lower GI bleed due to proabble bleeding hemorrhids or diverticular disease Stable. Has not had any bleeding again since admission. Diarrhea has also stopped. Was 17 on admission and went down to around 15 with IV fluid administration. INR was 1.3 on admission. N.p.o. For EGD and colonoscopy later this afternoon by Dr. Duckworth 2. Pre-renal LUPE due to dehydration and GI bleed Resolved. Was 1.44 on admission, now gone down to 1.17. on IVF NS. WIll continue 3. Gastroenteritis: diarrhea has resolved. C Diff was negative. on IVF for hydration 4. HYpertension: poorly controlled. ON coreg and lisinopril. IV Hydralazine prn for SBP>160mmHg 5. History of PE: on eliquis, which is currently on hold. 6. Paroxysmal Afib: on coreg. Eliquis for anticoagulation on hold due to GI bleed. 7. DVT prophylaxis: SCDs 8. GI prophylaxis: PPI This note was generated with [employer] dictation software. It may contain incorrect words, spelling, and punctuation that were not noted in checking the note before signing. Code Visit Inpatient E&M: 39217 Subs Hosp L3
--- NOTE | 2018-05-29 12:06 | PN_ITS ---
Patient Problems: Active and Suspected Problems (Last Reviewed 02/27/18 @ 08:45 by ANNELISE Joseph) GI bleeding (Acute) Anticoagulated (Acute) Subjective: Patient is a 62-year-old male with a history of asthma A. fib, multiple sclerosis, history of PE, bladder cancer, JOSH and hypertension. He was admitted with a complaint of bleeding per rectum once on 518. He has started having diarrhea which was initially loose and subsequently noted that it was bright red. He is on Eliquis for anticoagulation for A. fib. He was admitted and is being worked up for rectal bleed. He is currently n.p.o. pending EGD and colonoscopy later today. Eliquis is on hold. Patient seen and examined today. He feels very well and has not had any diarrhea since admission chills, any cough or chest pain, shortness of breath, abdominal pain, any diarrhea vomiting. Review of systems otherwise negative he has not had any rectal bleeding again since admission. Vitals/I&O's: Vital Signs Temp Pulse Resp BP Pulse Ox 98 F 78 16 159/107 H 95 05/29/18 10:30 05/29/18 10:30 05/29/18 10:30 05/29/18 10:30 05/29/18 10:30 Oxygen Delivery Method Room Air Weight: 241 lb 10.026 oz Body Mass Index (BMI) 27.9 Intake and Output for Last 24 Hours 05/27/18 05/28/18 05/29/18 23:59 23:59 23:59 Intake Total 602 / 602 570 / 570 Output Total 100 / 100 50 / 50 Balance 502 / 502 520 / 520 General: Alert, Oriented x3, Cooperative, No apparent distress HEENT: Atraumatic, PERRLA, EOMI, Normocephalic Oral: Moist Mucosa Neck: Supple, No JVD, Negative Carotid Bruits Lungs: Clear to auscultation, Normal air movement, No rhonchi, No wheeze Cardiovascular: Regular rate, Normal S1, Normal S2, No murmurs, Irregular Rate Abdomen: Bowel Sounds Present, Soft, Non Tender, Non-Distended, No Hepato- splenomegaly Extremities: No edema, Capillary Refill Less than 3 Seconds Skin: No rashes, No breakdown Musculoskeletal: No Tenderness to Palpation of Joints or Extremities Lymphatic: No Cervical, Supraclavicular, or Inguinal Adenopathy Neurological: Cranial nerves II-XII grossly intact, - - Left-sided hemiplegia due to multiple sclerosis. Inability to dorsiflex left foot due to MS and hemiplegia Psych/Mental Status: Normal Affect, Appropriate, Alert and oriented to time, place, person, mood and affect Microbiology Past 72 Hours 05/28/18 18:10 Stool C. difficile DNA Amplification - Final Laboratory Results 05/28/18 18:11: PT 15.9 H, INR 1.3 05/28/18 18:11: Hgb 16.9 H, Hct 50.1 05/29/18 05:30: Sodium 143, Potassium 3.9, Chloride 112 H, Carbon Dioxide 23.0, Anion Gap 8, BUN 19 H, Creatinine 1.17, Estim Creat Clear Calc 86.80, Est GFR ( MDRD) Af Amer 82, Est GFR (MDRD) Non-Af 67, BUN/Creatinine Ratio 16.2, Glucose 84, Calcium 8.6 05/29/18 05:30: WBC 6.8, RBC 5.46, Hgb 15.8, Hct 48.1, MCV 88.1, MCH 28.9, MCHC 32.8, RDW 13.5, RDW Differential 43.9, Plt Count 192, MPV 10.0, Immature Gran % (Auto) 0.300, Neut % (Auto) 59.4, Lymph % (Auto) 20.8, [place] % (Auto) 14.8 H, Eos % (Auto) 4.4, Baso % (Auto) 0.3, Absolute Neuts (auto) 4.1, Absolute Lymphs (auto) 1.42, Total Counted Not Reportable Current Medications Acetaminophen (Tylenol) 650 mg PO Q6H PRN PRN PRN Reason: Headache, pain, fever. Albuterol Sulfate (Ventolin Aerosols) 2.5 mg INHALATION Q4H PRN PRN PRN Reason: Shortness of breath, wheezing Atorvastatin Calcium (Lipitor) 10 mg PO QHS [facility] Last Admin: 05/28/18 22:41 Dose: 10 mg Carvedilol (Coreg) 12.5 mg PO BID [facility] Last Admin: 05/29/18 11:11 Dose: 12.5 mg Duloxetine HCl (Cymbalta) 30 mg PO DAILY [facility] Last Admin: 05/29/18 11:12 Dose: 30 mg Sodium Chloride () 1,000 mls @ 100 mls/hr IV .Q10H [facility] Last Admin: 05/29/18 04:10 Dose: 100 mls/hr Pantoprazole Sodium 40 mg/ (Sodium Chloride) 110 mls @ 330 mls/hr IV Q12 [facility] Last Admin: 05/29/18 11:12 Dose: 330 mls/hr Lisdexamfetamine Dimesylate (Vyvanse) 50 mg PO DAILY [facility] Last Admin: 05/29/18 11:16 Dose: 50 mg Lisinopril (Zestril) 20 mg PO DAILY [facility] Last Admin: 05/29/18 11:11 Dose: 20 mg Meclizine HCl (Antivert) 25 mg PO 4X/DAY PRN PRN PRN Reason: NAUSEA Ondansetron HCl (Zofran) 4 mg IV Q6H PRN PRN PRN Reason: NAUSEA/VOMITING Tizanidine HCl (Zanaflex) 4 mg PO Q8H PRN PRN Reason: MUSCLE SPASM Medical Necessity - Tobacco Use Smoking Status: Never smoker Tobacco Use: Non-smoker Assessment/Plan All Active Problems (Last Reviewed 02/27/18 @ 08:45 by Sita Cyr NP-C) GI bleeding (Acute) Anticoagulated (Acute) Bladder cancer (Resolved) Atrial fibrillation with RVR (Resolved) 62-year-old male presenting with a complaint of bleeding per rectum. He has been managed for AK I GI bleed. He has been EGD and colonoscopy. 1. Lower GI bleed due to proabble bleeding hemorrhids or diverticular disease * Stable. Has not had any bleeding again since admission. Diarrhea has also stopped. * Was 17 on admission and went down to around 15 with IV fluid administration. * INR was 1.3 on admission. * N.p.o. For EGD and colonoscopy later this afternoon by Dr. Duckwroth * 2. Pre-renal LUPE due to dehydration and GI bleed * Resolved. Was 1.44 on admission, now gone down to 1.17. * on IVF NS. WIll continue * 3. Gastroenteritis: diarrhea has resolved. C Diff was negative. on IVF for hydration 4. HYpertension: poorly controlled. ON coreg and lisinopril. IV Hydralazine prn for SBP>160mmHg 5. History of PE: on eliquis, which is currently on hold. 6. Paroxysmal Afib: on coreg. Eliquis for anticoagulation on hold due to GI bleed. 7. DVT prophylaxis: SCDs 8. GI prophylaxis: PPI This note was generated with [employer] software. It may contain incorrect words, spelling, and punctuation that were not noted in checking the note before signing. * * Code Visit Inpatient E&M: 37940 Subs Hosp L3
[2018-05-29] MEDS: Ondansetron 4 MG/2 ML Vial IV (13:57)
--- NOTE | 2018-05-29 15:41 | NURSING ---
1357 ZOFRAN GIVEN FOR NAUSEA PATIENT STATES HE CANNOT DRINK ANYMORE PREP. DRY HEAVED NOTHING CAME OUT EMISIS BAG IN REACH. ZOFRAN GIVEN
--- NOTE | 2018-05-29 15:42 | NURSING ---
1450 WENT INTO SEE PATIENT NAUSEA RESOLVED STATES CANNOT AND WILL NOT DRINK ANYMORE AFRAID TO GET NAUSEATED AGAIN DID DRINK OVER 1/2 BOUWL PREP BUT IS PASSING FLATUS WILL CALL ENDOSCOPY
--- NOTE | 2018-05-29 15:43 | NURSING ---
9114 PAGED NOTOFIED THAT PATIENT COULD NOT TOLERATE DRINKING THE REST OF THE BOWEL PREP. HE DID DRINK OVER 1/2. PASSING FLATUS BUT NO GOOD BOWEL MOVEMENTS.- DR. ANDREA SAID OK THEN HUNG UP
--- NOTE | 2018-05-29 15:49 | NURSING ---
PATIENT JUST HAD LARGE BM
--- NOTE | 2018-05-29 15:57 | CHAPLAIN ---
Type of Pastoral Visit _x__ Initial Visit ___ Follow-up Visit ___ On-call Visit ___ General Patient Visit ___ Spiritual Assessment ___ Family Conference ___ Bereavement ___ Rapid Response ___ Code Blue ___ Other (describe below) Pastoral Care Referral From _x__ Patient ___ Family ___ Nurse ___ Physician ___ Nonprofit Fundraiser ___ Digital Content Manager ___ Other (describe below) Sacrament/Intervention ___ Active listening ___ Anointing ___ Amish ___ Bereavement ___ Communion ___ Terri exploration ___ ___ Life review ___ Prayer ___ Reconciliation ___ Sacrament of Sick _x__ Supportive presence ___ Wedding ___ Other (describe below) Pastoral Comments several family members and staff were in room at this time; 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
--- NOTE | 2018-05-29 17:57 | PCM.PN.BLA ---
Progress Note I was notified approximately 3pm that pt had not taken bowel prep in completeness and had not had results from that which he took. Procedure with MAC anesthesia had to be cancelled today for 4pm I had previously called at 9am to confirm that bowel prep had been initiated and was told it had been but I received no additional contact re: any difficulties with pt compliance I will recheck Hgb If stable then consider EGD/cscope as an outpt If not stable then consider EGD/cscope tomorrow afternoon if anesthesia will assist Jose Duckworth
[2018-05-29 18:01] LABS: Hematocrit 47.6 % (40-54); Hemoglobin 15.5 g/dl (13.0-16.5)
[2018-05-29] MEDS: Atorvastatin Calcium 10 MG Tablet PO (21:13)
[2018-05-30] VITALS (10 sets, daily range): BP systolic 126–161; BP diastolic 64–90; PULSE 51–78; RESP 16; TEMP 36.6–36.8; O2SAT 94–100
[2018-05-30] MEDS: 0.9% Normal Saline 1,000 ML 100 ML IV ×3 (01:42→21:13)
--- NOTE | 2018-05-30 05:53 | PCM.PN.SRG ---
Patient Problems: Active and Suspected Problems (Last Reviewed 02/27/18 @ 08:45 by ANNELISE Joseph) GI bleeding (Acute) Anticoagulated (Acute) Subjective: Pt had solid food last night - Physical Exam Vital Signs Temp Pulse Resp BP Pulse Ox 98.1 F 78 16 126/64 H 96 05/30/18 03:15 05/30/18 03:15 05/30/18 03:15 05/30/18 03:15 05/30/18 03:15 Oxygen Delivery Method CPAP Weight: 241 lb 10.026 oz Body Mass Index (BMI) 27.9 Intake and Output for Last 24 Hours 05/28/18 05/29/18 05/30/18 23:59 23:59 23:59 Intake Total 602 / 602 2434 / 2434 1710 / 1710 Output Total 100 / 100 250 / 250 150 / 150 Balance 502 / 502 2184 / 2184 1560 / 1560 Microbiology Past 72 Hours 05/28/18 18:10 C. difficile DNA Amplification - Final Stool Laboratory Tests Past 24 Hrs 05/29/18 05/29/18 05/29/18 05:30 05:30 17:47 WBC 6.8 RBC 5.46 Hgb 15.8 15.5 Hct 48.1 47.6 MCV 88.1 MCH 28.9 MCHC 32.8 RDW 13.5 RDW Differential 43.9 Plt Count 192 MPV 10.0 Immature Gran % (Auto) 0.300 Neut % (Auto) 59.4 Lymph % (Auto) 20.8 [place] % (Auto) 14.8 H Eos % (Auto) 4.4 Baso % (Auto) 0.3 Absolute Neuts (auto) 4.1 Absolute Lymphs (auto) 1.42 Total Counted Not Reportable Sodium 143 Potassium 3.9 Chloride 112 H Carbon Dioxide 23.0 Anion Gap 8 BUN 19 H Creatinine 1.17 Estim Creat Clear Calc 86.80 Est GFR (MDRD) Af Amer 82 Est GFR (MDRD) Non-Af 67 BUN/Creatinine Ratio 16.2 Glucose 84 Calcium 8.6 Medical Necessity - Tobacco Use Smoking Status: Never smoker Tobacco Use: Non-smoker Assessment/Plan All Active Problems (Last Reviewed 02/27/18 @ 08:45 by ANNELISE Joseph) GI bleeding (Acute) Anticoagulated (Acute) Bladder cancer (Resolved) Atrial fibrillation with RVR (Resolved) I was reconsidering egd/cscope today as pt required hospitalization for his bowel prep 3 years ago. He had solid food last night. Could consider bowel prep over the weekend and scopes on Friday pending Hospitalist's plans Will change back to clear liquids for now
[2018-05-30 06:33] LABS: Absolute Lymphocyte Count 1.16 X10^3/ul (0.83-4.51); Absolute Neutrophil Count 3.3 X10^3/uL (2.0-7.7); Basophil# 0.02 X10^3/uL; Basophil% 0.3 % (0-1); Eosinophil# 0.34 X10^3/uL; Eosinophils% 5.9 % (0-5); Hematocrit 41.7 % (40-54); Hemoglobin 13.8 g/dl (13.0-16.5); Lymphocyte # 1.16 X10^3/ul (4.0); Mean Corp Hgb Conc 33.1 g/gl (32-36); Mean Corpuscular Volume 87.6 fL (80-94); Mean Platelet Vol. 10.1 fl (6.2-12.0); Monocyte# 0.94 X10^3/uL; Monocyte% 16.2 % (0-10); Neutrophil # 3.28 X10^3/uL (2.7-7.7); Neutrophil % 56.7 % (47-70); Platelet Count 207 K/mm3 (150-450); RBC Distribution Width CV 13.1 % (11.6-14.6); RBC Distribution Width SD 41.4 fl (35.1-43.9); Red Blood Count 4.76 M/mm3 (4.6-6.2); White Blood Count 5.8 K/mm3 (4.4-11.0)
[2018-05-30 06:38] LABS: POSITIVE COUNT NO; POSITIVE DIFFERENTIAL NO; POSITIVE MORPHOLOGY NO
[2018-05-30 07:07] LABS: Anion Gap 6 (5-15); BUN 16 mg/dL (7-18); BUN/Creat Ratio 13.2 RATIO (10-20); Calcium,Total 8.2 mg/dL (8.5-10.1); Chloride 110 mmol/L (98-107); Creatinine, Serum 1.21 mg/dL (0.70-1.30); EST Glomerular Filtration Rate 65 mL/min (>60); Est Glom Filt Rate - Afr Amer 78 mL/min (>60); Estimated Creatinine Clearance 83.93 ml/min; Glucose 110 mg/dL (74-106); Potassium 4.1 mmol/L (3.5-5.1); Sodium Level 142 mmol/L (136-145)
[2018-05-30] MEDS: DULoxetine Hcl 30 MG Capsule PO (10:01)
[2018-05-30] MEDS: Carvedilol 12.5 MG Tablet PO ×2 (10:01→21:13)
[2018-05-30] MEDS: LISDEXAMFETAMINE DIMESYLATE 50 MG CAPSULE PO (10:01)
[2018-05-30] MEDS: Lisinopril 20 MG Tablet PO (10:01)
[2018-05-30] MEDS: Polyethylene Glycol 3350 17 GM PACKET 120 GM PO (10:47)
--- NOTE | 2018-05-30 12:54 | PCM.PROGNOTE ---
<Shaneka Garcia - Last Filed: 05/30/18 13:04> Patient Problems: Active and Suspected Problems (Last Reviewed 02/27/18 @ 08:45 by ANNELISE Joseph) GI bleeding (Acute) Anticoagulated (Acute) Subjective: Patient seen and examined. Denies current complaints. States he was unable to tolerate bowel prep yesterday due to stomach knotting and nausea. Dr. Duckworth assessed patient this morning with plans for colonoscopy on Friday. Patient denies further questions, concerns. - Physical Exam General: Alert, Oriented x3, Cooperative, No apparent distress HEENT: Atraumatic, PERRLA, EOMI, Normocephalic Oral: Moist Mucosa Neck: Supple, No JVD, Negative Carotid Bruits Lungs: Clear to auscultation, Normal air movement Cardiovascular: Regular rate, Regular Rhythm, Normal S1, Normal S2, No murmurs Abdomen: Bowel Sounds Present, Soft, Non Tender, Non-Distended Extremities: No clubbing, No cyanosis, No edema, Capillary Refill Less than 3 Seconds Skin: No rashes, No breakdown Musculoskeletal: No Tenderness to Palpation of Joints or Extremities, - - Chronic left-sided hemiplegia secondary to MS. Neurological: Cranial nerves II-XII grossly intact, Neuro grossly intact Psych/Mental Status: Normal Affect, Appropriate Vital Signs Temp Pulse Resp BP Pulse Ox 98.1 F 66 16 137/90 H 96 05/30/18 09:15 05/30/18 11:05 05/30/18 09:15 05/30/18 09:15 05/30/18 09:15 Oxygen Delivery Method Room Air Weight: 109.6 kg Body Mass Index (BMI) 27.9 Intake and Output for Last 24 Hours 05/28/18 05/29/18 05/30/18 23:59 23:59 23:59 Intake Total 602 / 602 2434 / 2434 3802 / 3802 Output Total 100 / 100 250 / 250 150 / 150 Balance 502 / 502 2184 / 2184 3652 / 3652 Microbiology Past 72 Hours 05/28/18 18:10 Enteric Bacteriology - Final Stool 05/28/18 18:10 C. difficile DNA Amplification - Final Stool Laboratory Tests Past 24 Hrs 05/29/18 05/30/18 05/30/18 17:47 05:56 05:56 WBC 5.8 RBC 4.76 Hgb 15.5 13.8 Hct 47.6 41.7 MCV 87.6 MCH 29.0 MCHC 33.1 RDW 13.1 RDW Differential 41.4 Plt Count 207 MPV 10.1 Immature Gran % (Auto) 0.900 Neut % (Auto) 56.7 Lymph % (Auto) 20.0 [place] % (Auto) 16.2 H Eos % (Auto) 5.9 H Baso % (Auto) 0.3 Absolute Neuts (auto) 3.3 Absolute Lymphs (auto) 1.16 Total Counted Not Reportable Sodium 142 Potassium 4.1 Chloride 110 H Carbon Dioxide 26.0 Anion Gap 6 BUN 16 Creatinine 1.21 Estim Creat Clear Calc 83.93 Est GFR (MDRD) Af Amer 78 Est GFR (MDRD) Non-Af 65 BUN/Creatinine Ratio 13.2 Glucose 110 H Calcium 8.2 L Medical Necessity - Tobacco Use Smoking Status: Never smoker Tobacco Use: Non-smoker Assessment/Plan All Active Problems (Last Reviewed 02/27/18 @ 08:45 by Sita Cyr, JEANINE-C) GI bleeding (Acute) Anticoagulated (Acute) Bladder cancer (Resolved) Atrial fibrillation with RVR (Resolved) Patient is a 62-year-old male admitted 05/28/2018 due to blood per rectum. He has a past medical history of MS, paroxysmal atrial fibrillation, obstructive sleep apnea, history of bladder cancer, history of pulmonary embolism, depression, hyperlipidemia. 1. Lower GI bleed-patient has required hospitalization for bowel prep in the past. Dr. Duckworth planning for EGD/colonoscopy Friday, [id number]. Continue clear liquids. Further bowel prep per surgery. No further blood per rectum or diarrhea. Hemoglobin stable. Continue to monitor. 2. Acute kidney injury-resolved. Secondary to dehydration and GI bleed. Continue IV fluids. Trend BMP. 3. Gastroenteritis-resolved. Stool studies negative. 4. Paroxysmal atrial fibrillation-Eliquis on hold secondary to #1. Continue Coreg. Currently sinus rhythm. 5. Multiple sclerosis with associated debility-chronic left-sided hemiparesis. PT/OT. 6. History of pulmonary embolism-Eliquis on hold secondary #1. 7. Depression-continue Cymbalta. 8. Hyperlipidemia-continue statin. 9. Hypertension-continue home lisinopril, carvedilol regimen. DVT prophylaxis-SCDs. This patient was seen by ANNELISE Estes under the supervision of Dr. Robison. <EnriquetaJessica - Last Filed: 05/30/18 15:05> - Physical Exam Vital Signs Temp Pulse Resp BP Pulse Ox 98.1 F 66 16 137/90 H 96 05/30/18 09:15 05/30/18 11:05 05/30/18 09:15 05/30/18 09:15 05/30/18 09:15 Oxygen Delivery Method Room Air Weight: 241 lb 10.026 oz Body Mass Index (BMI) 27.9 Intake and Output for Last 24 Hours 05/28/18 05/29/18 05/30/18 23:59 23:59 23:59 Intake Total 602 / 602 2434 / 2434 3802 / 3802 Output Total 100 / 100 250 / 250 150 / 150 Balance 502 / 502 2184 / 2184 3652 / 3652 Microbiology Past 72 Hours 05/28/18 18:10 Enteric Bacteriology - Final Stool 05/28/18 18:10 C. difficile DNA Amplification - Final Stool Laboratory Tests Past 24 Hrs 05/29/18 05/30/18 05/30/18 17:47 05:56 05:56 WBC 5.8 RBC 4.76 Hgb 15.5 13.8 Hct 47.6 41.7 MCV 87.6 MCH 29.0 MCHC 33.1 RDW 13.1 RDW Differential 41.4 Plt Count 207 MPV 10.1 Immature Gran % (Auto) 0.900 Neut % (Auto) 56.7 Lymph % (Auto) 20.0 [place] % (Auto) 16.2 H Eos % (Auto) 5.9 H Baso % (Auto) 0.3 Absolute Neuts (auto) 3.3 Absolute Lymphs (auto) 1.16 Total Counted Not Reportable Sodium 142 Potassium 4.1 Chloride 110 H Carbon Dioxide 26.0 Anion Gap 6 BUN 16 Creatinine 1.21 Estim Creat Clear Calc 83.93 Est GFR (MDRD) Af Amer 78 Est GFR (MDRD) Non-Af 65 BUN/Creatinine Ratio 13.2 Glucose 110 H Calcium 8.2 L Assessment/Plan Patient seen by Shaneka BRIANC under my supervision. Agree with above note and management. Patient admitted with a complaint of diarrhea and rectal bleeding. Was supposed to have EGD and colonoscopy yesterday, but didnt tolerate the prep. Also ate a large meal last night, so patient cannot have procedure today. She seen and examined this morning. He has no complaints whatsoever and feels well. He did have an episode of diarrhea this morning and those reasons scanty blood mixed with the stool. He denies any fever chills, any cough or chest pain, shortness of breath, any abdominal pain, any diarrhea vomiting. Review of systems otherwise negative. O/E: Patient alert and oriented ?3 HEENT: PERRLA, EOMI, no jaundice or pallor LUngs: clear to auscultation CVS: normal first and second heart sounds, no murmurs ABdomen: soft, nontender, no organomegaly NEuro: has left sided hemiplegia due to MS Assessment and Plan 1. Lower GI bleed: Prior hospitalization for bowel prep in the past due to multiple comorbidities and multiple sclerosis. Plan for EGD and colonoscopy on Friday, 01 June 2018. Will keep n.p.o. past midnight on Friday. Enedelia remains on hold 2. Diarrhea: Resolved. Stool for ova and parasites and Shigella toxin was negative and C. difficile was also negative. Continue hydration. Other medical conditions as mentioned above Rest as per Shaneka Garcia NP-Marion's note. Code Visit Inpatient E&M: 95758 Subs Hosp L2
[2018-05-30] MEDS: Atorvastatin Calcium 10 MG Tablet PO (21:13)
[2018-05-30] MEDS: Menthol/Lanolin/Calamine/Znox 113 GM Tube 1 APPLIC TOPICAL ×2 (21:13→21:54)
[2018-05-31] VITALS (11 sets, daily range): BP systolic 130–159; BP diastolic 76–98; PULSE 54–86; RESP 15–16; TEMP 36.3–36.9; O2SAT 95–100
[2018-05-31 06:44] LABS: Hematocrit 43.2 % (40-54); Hemoglobin 14.2 g/dl (13.0-16.5); Mean Corp Hgb Conc 32.9 g/gl (32-36); Mean Corpuscular Hgb 28.5 pg (27.0-32.0); Mean Corpuscular Volume 86.7 fL (80-94); Mean Platelet Vol. 9.7 fl (6.2-12.0); Platelet Count 189 K/mm3 (150-450); RBC Distribution Width CV 12.9 % (11.6-14.6); RBC Distribution Width SD 41.2 fl (35.1-43.9); Red Blood Count 4.98 M/mm3 (4.6-6.2); White Blood Count 5.1 K/mm3 (4.4-11.0)
[2018-05-31 07:04] LABS: Scan Indicated on CBC? Y/N NO
[2018-05-31 07:05] LABS: Anion Gap 7 (5-15); BUN 9 mg/dL (7-18); BUN/Creat Ratio 9.4 RATIO (10-20); Calcium,Total 8.6 mg/dL (8.5-10.1); Chloride 114 mmol/L (98-107); Creatinine, Serum 0.95 mg/dL (0.70-1.30); EST Glomerular Filtration Rate 85 mL/min (>60); Est Glom Filt Rate - Afr Amer 103 mL/min (>60); Glucose 88 mg/dL (74-106); Potassium 3.8 mmol/L (3.5-5.1); Sodium Level 145 mmol/L (136-145)
--- NOTE | 2018-05-31 07:07 | PN.SURG_ITS ---
Patient Problems: Active and Suspected Problems (Last Reviewed 02/27/18 @ 08:45 by Sita Cyr NP-C) GI bleeding (Acute) Anticoagulated (Acute) Subjective: Pt tolerated bowel prep yesterday - Physical Exam Abdomen: Soft, Non Tender Vital Signs Temp Pulse Resp BP Pulse Ox 98.0 F 58 L 15 148/76 H 100 05/31/18 03:15 05/31/18 03:15 05/31/18 03:15 05/31/18 03:15 05/31/18 03:15 Oxygen Delivery Method CPAP Weight: 241 lb 10.026 oz Body Mass Index (BMI) 27.9 Intake and Output for Last 24 Hours 05/29/18 05/30/18 05/31/18 23:59 23:59 23:59 Intake Total 2434 / 2434 5197 / 5197 1674 / 1674 Output Total 250 / 250 150 / 150 Balance 2184 / 2184 5047 / 5047 1674 / 1674 Microbiology Past 72 Hours 05/28/18 18:10 Enteric Bacteriology - Final Stool 05/28/18 18:10 C. difficile DNA Amplification - Final Stool Laboratory Tests Past 24 Hrs 05/30/18 05/31/18 05/31/18 05:56 06:08 06:08 WBC 5.1 RBC 4.98 Hgb 14.2 Hct 43.2 MCV 86.7 MCH 28.5 MCHC 32.9 RDW 12.9 RDW Differential 41.2 Plt Count 189 MPV 9.7 Sodium 142 145 Potassium 4.1 3.8 Chloride 110 H 114 H Carbon Dioxide 26.0 24.0 Anion Gap 6 7 BUN 16 9 Creatinine 1.21 0.95 Estim Creat Clear Calc 83.93 106.90 Est GFR (MDRD) Af Amer 78 103 Est GFR (MDRD) Non-Af 65 85 BUN/Creatinine Ratio 13.2 9.4 L Glucose 110 H 88 Calcium 8.2 L 8.6 Medical Necessity - Tobacco Use Smoking Status: Never smoker Tobacco Use: Non-smoker Assessment/Plan All Active Problems (Last Reviewed 02/27/18 @ 08:45 by Sita Cyr MANUSCRIPTS ARCHIVIST-C) GI bleeding (Acute) Anticoagulated (Acute) Bladder cancer (Resolved) Atrial fibrillation with RVR (Resolved) Will continue bowel prep today and plan EGD/cscope tomorrow
[2018-05-31] MEDS: 0.9% Normal Saline 1,000 ML 100 ML IV ×2 (07:14→17:15)
[2018-05-31] MEDS: Bisacodyl 5 MG Tablet 30 MG PO (08:32)
--- NOTE | 2018-05-31 09:22 | PN_ITS ---
<Shaneka Garcia - Last Filed: 05/31/18 09:22> Patient Problems: Active and Suspected Problems (Last Reviewed 02/27/18 @ 08:45 by ANNELISE Joseph) GI bleeding (Acute) Anticoagulated (Acute) Subjective: Patient seen and examined. Denies current complaints. Tolerating bowel prep without difficulty. No acute events overnight. - Physical Exam General: Alert, Oriented x3, Cooperative, No apparent distress HEENT: Atraumatic, PERRLA, EOMI, Normocephalic Oral: Moist Mucosa Neck: Supple, No JVD, Negative Carotid Bruits Lungs: Clear to auscultation, Normal air movement Cardiovascular: Regular rate, Regular Rhythm, Normal S1, Normal S2, No murmurs Abdomen: Bowel Sounds Present, Soft, Non Tender, Non-Distended Extremities: No clubbing, No cyanosis, No edema, Capillary Refill Less than 3 Seconds Skin: No rashes, No breakdown Musculoskeletal: No Tenderness to Palpation of Joints or Extremities Neurological: Cranial nerves II-XII grossly intact, Neuro grossly intact, - - Chronic left-sided hemiplegia secondary to MS. Psych/Mental Status: Normal Affect, Appropriate Vital Signs Temp Pulse Resp BP Pulse Ox 98.0 F 61 15 148/76 H 100 05/31/18 03:15 05/31/18 06:55 05/31/18 03:15 05/31/18 03:15 05/31/18 03:15 Oxygen Delivery Method Room Air Weight: 109.6 kg Body Mass Index (BMI) 27.9 Intake and Output for Last 24 Hours 05/29/18 05/30/18 05/31/18 23:59 23:59 23:59 Intake Total 2434 / 2434 5197 / 5197 1674 / 1674 Output Total 250 / 250 150 / 150 Balance 2184 / 2184 5047 / 5047 1674 / 1674 Microbiology Past 72 Hours 05/28/18 18:10 Enteric Bacteriology - Final Stool 05/28/18 18:10 C. difficile DNA Amplification - Final Stool Laboratory Tests Past 24 Hrs 05/31/18 05/31/18 06:08 06:08 WBC 5.1 RBC 4.98 Hgb 14.2 Hct 43.2 MCV 86.7 MCH 28.5 MCHC 32.9 RDW 12.9 RDW Differential 41.2 Plt Count 189 MPV 9.7 Sodium 145 Potassium 3.8 Chloride 114 H Carbon Dioxide 24.0 Anion Gap 7 BUN 9 Creatinine 0.95 Estim Creat Clear Calc 106.90 Est GFR (MDRD) Af Amer 103 Est GFR (MDRD) Non-Af 85 BUN/Creatinine Ratio 9.4 L Glucose 88 Calcium 8.6 Medical Necessity - Tobacco Use Smoking Status: Never smoker Tobacco Use: Non-smoker Assessment/Plan All Active Problems (Last Reviewed 02/27/18 @ 08:45 by ANNELISE Joseph) GI bleeding (Acute) Anticoagulated (Acute) Bladder cancer (Resolved) Atrial fibrillation with RVR (Resolved) Patient is a 62-year-old male admitted 05/28/2018 due to blood per rectum. He has a past medical history of MS, paroxysmal atrial fibrillation, obstructive sleep apnea, history of bladder cancer, history of pulmonary embolism, depression, hyperlipidemia. 1. Lower GI bleed-patient has required hospitalization for bowel prep in the past. Dr. Duckworth planning for EGD/colonoscopy 06/01/2018. Continue clear liquids. Further bowel prep per surgery. No further blood per rectum or diarrhea. Hemoglobin stable. Continue to monitor. NPO at midnight. Patient tolerating bowel prep without difficulty. 2. Acute kidney injury-resolved. Secondary to dehydration and GI bleed. Continue IV fluids. Trend BMP. 3. Gastroenteritis-resolved. Stool studies negative. 4. Paroxysmal atrial fibrillation-Eliquis on hold secondary to #1. Continue Coreg. Currently sinus rhythm. 5. Multiple sclerosis with associated debility-chronic left-sided hemiparesis. PT/OT. 6. History of pulmonary embolism-Eliquis on hold secondary #1. 7. Depression-continue Cymbalta. 8. Hyperlipidemia-continue statin. 9. Hypertension-continue home lisinopril, carvedilol regimen. DVT prophylaxis-SCDs. This patient was seen by ANNELISE Estes under the supervision of Dr. Robison. <Jessica Robison - Last Filed: 05/31/18 13:59> - Physical Exam Vital Signs Temp Pulse Resp BP Pulse Ox 97.7 F L 75 16 130/92 H 97 05/31/18 09:15 05/31/18 11:08 05/31/18 09:15 05/31/18 09:15 05/31/18 09:15 Oxygen Delivery Method Room Air Weight: 241 lb 10.026 oz Body Mass Index (BMI) 27.9 Intake and Output for Last 24 Hours 05/29/18 05/30/18 05/31/18 23:59 23:59 23:59 Intake Total 2434 / 2434 5197 / 5197 2923 / 2923 Output Total 250 / 250 150 / 150 200 / 200 Balance 2184 / 2184 5047 / 5047 2723 / 2723 Microbiology Past 72 Hours 05/28/18 18:10 Enteric Bacteriology - Final Stool 05/28/18 18:10 C. difficile DNA Amplification - Final Stool Laboratory Tests Past 24 Hrs 05/31/18 05/31/18 06:08 06:08 WBC 5.1 RBC 4.98 Hgb 14.2 Hct 43.2 MCV 86.7 MCH 28.5 MCHC 32.9 RDW 12.9 RDW Differential 41.2 Plt Count 189 MPV 9.7 Sodium 145 Potassium 3.8 Chloride 114 H Carbon Dioxide 24.0 Anion Gap 7 BUN 9 Creatinine 0.95 Estim Creat Clear Calc 106.90 Est GFR (MDRD) Af Amer 103 Est GFR (MDRD) Non-Af 85 BUN/Creatinine Ratio 9.4 L Glucose 88 Calcium 8.6 Assessment/Plan Patient seen under my supervision by Shaneka CASTELAN. Agree with the above note and assessment and plan. Patient seen and examined. Feels well and has no complaints. Denies any fever or chills, any cough or chest pain, any shortness of breath, any abdominal pain , any diarrhea vomiting. Review of systems otherwise negative. O/E: Patient alert and oriented ?3 HEENT: PERRLA, EOMI, no jaundice or pallor LUngs: clear to auscultation CVS: normal first and second heart sounds, no murmurs ABdomen: soft, nontender, no organomegaly NEuro: has left sided hemiplegia due to MS Assessment and Plan 1. Lower GI bleed: Prior hospitalization for bowel prep in the past due to multiple comorbidities and multiple sclerosis. Plan for EGD and colonoscopy on Friday, 01 June 2018. Will keep n.p.o. past midnight today. Miralax for bowel prep per surgery. Eliquis remains on hold 2. Diarrhea: Resolved. Rest of management as per Shaneka BRIANC's note.
[2018-05-31] MEDS: Menthol/Lanolin/Calamine/Znox 113 GM Tube 1 APPLIC TOPICAL ×4 (09:33→20:46)
[2018-05-31] MEDS: Carvedilol 12.5 MG Tablet PO ×2 (09:33→20:46)
[2018-05-31] MEDS: Lisinopril 20 MG Tablet PO (09:33)
[2018-05-31] MEDS: LISDEXAMFETAMINE DIMESYLATE 50 MG CAPSULE PO (09:33)
[2018-05-31] MEDS: DULoxetine Hcl 30 MG Capsule PO (09:33)
[2018-05-31] MEDS: Polyethylene Glycol 3350 17 GM PACKET 120 GM PO (14:53)
[2018-05-31] MEDS: Atorvastatin Calcium 10 MG Tablet PO (20:46)
[2018-06-01] VITALS (9 sets, daily range): BP systolic 122–158; BP diastolic 72–99; PULSE 43–72; RESP 14–16; TEMP 36.6–37.3; O2SAT 94–99; BMI 27.9
--- NOTE | 2018-06-01 | EGD_PTH ---
PATIENT: NERY MIDDLETON LOC: [facility] U#:[id number] AGE/SX: 62/M ROOM: [facility] RE05/28/[address]: Dr. Jessiac Robison MD : 1955 BED: 1 DIS: 06/01/2018 SPEC #: [id number] RECD: 06/01/18 15:23 STATUS: HELDER RIGO #: [id number] RASHID: 06/01/18 00:[address]: Uzair Duckworth DEPT: SURGICAL PATHOLOGY RECD BY: Huey Jerez ENTERED: 06/02/18 08:16 SP TYPE: EGD BIOPSY OTHR DR: MD Dr. Chavez Corado III, MD Dr. Nana Yaa Koram, MD Tissues: A - Gastric mucous membrane B - Esophageal mucous membrane C - Esophageal mucous membrane Procedures: Special Stain Group II Surgery Specimen Level IV Alcian Blue/PAS (control) HEADER OPERATION: Colonoscopy, EGD PRE-OP DIAGNOSIS: GI bleed TISSUE SUBMITTED: A. Antral biopsy, B. Distal esophageal biopsy, C. Proximal esophageal biopsy MICROSCOPIC DIAGNOSIS A. Antral biopsy: Mild gastritis. See microscopic description and comment. B. Distal esophagus, biopsy: Fragment of squamous epithelium with minimal changes consistent with gastroesophageal reflux disease. C. Proximal esophagus, biopsy: Fragments of gastroesophageal mucosa with chronic inflammation. Intestinal metaplasia (goblet cell metaplasia) is not identified. See comment. SJ:tiffanie 06/03/18 COMMENT A. The results of immunohistochemistry for Helicobacter pylori will be reported separately ([id number]). C. Alcian blue/PAS stain with matched control is used in the evaluation of the specimen. Also, please note that specimen B & C might have switched. This is discussed with Dr. Duckworth by Nevin Spencer on 06/04/18. Case has been reviewed in consultation with Dr. Sibley who concurs with the above diagnosis. IDC:AM MICROSCOPIC DESCRIPTION Slides are reviewed. A. The specimen shows fragments of gastric mucosa with chronic inflammatory cell infiltrates in the lamina propria consisting of lymphocytes and plasma cells, consistent with mild chronic gastritis. GROSS DESCRIPTION A - Received in fixative is one container labeled with the patient's name and designated antral biopsy. The specimen consists of one irregular fragment of light goodrich soft tissue that measures 0.5 x 0.3 x 0.1 cm. The specimen is totally submitted in one cassette. B - Received in fixative is one container labeled with the patient's name and designated distal esophagus biopsy. The specimen consists of one irregular fragment of light goodrich soft tissue that measures 0.2 x 0.2 x 0.1 cm. The specimen is totally submitted in one cassette. C - Received in fixative is one container labeled with the patient's name and designated proximal esophagus biopsy. The specimen consists of multiple irregular fragments of light goodrich soft tissue that in aggregate measure 0.6 x 0.3 x 0.1 cm. The specimen is totally submitted in one cassette. / AM:tiffanie 06/02/18 TC:3 [facility]: [id number] x3, [id number]
--- NOTE | 2018-06-01 | IMM_PTH ---
PATIENT: NERY MIDDLETON LOC: [facility] U#:[id number] AGE/SX: 62/M ROOM: [facility] RE05/28/[address]: Dr. Jessica Robison MD : 1955 BED: 1 DIS: 06/01/2018 SPEC #: [id number] RECD: 06/03/18 13:04 STATUS: HELDER REQ #: [id number] RASHID: 06/01/18 00:[address]: Uzair Duckworth DEPT: IMMUNOHISTOCHEMISTRY RECD BY: Nevin Palmer ENTERED: 06/03/18 13:05 SP TYPE: IMMUNO OTHR DR: MD Dr. Chavez Corado III, MD Dr. Nana Yaa Koram, MD Tissues: A - Stomach, NOS Procedures: H Pylori (initial) Comments: @ Ordering doctor for H.PYLORI edited from to @ reynaldo NASCIMENTO at 06/03/18 1306 @ Submitting doctor edited from to @ reynaldo NASCIMENTO at 06/03/18 1306 PHYSICIAN & INSTITUTION [place] [id number] SPECIMEN INFORMATION: Tissue Source: A ? Antral biopsy Clinical Info: GI bleed Specimen Number: [id number] CPT code: 59272 METHODOLOGY: Deparaffinized sections of prefer/formalin-fixed tissue or PAP/DQ stained slides are incubated with monoclonal/polyclonal antibodies/oligonucleotide probes. Localization is made via biotin free immunoperoxidase method. Appropriate controls are performed and reacted as expected. Results on target cell population are indicated in the following table: RESULTS: ANTIBODY / CLONE RESULT Block A H Pylori (polyclonal) negative These tests were developed and their performance characteristics determined by [facility]. They may not have been cleared or approved by the U.S. Food and Drug Administration. The FDA has determined that such clearance or approval is not necessary. INTERPRETATION: A. Antral biopsy: Negative for Helicobacter pylori organisms. CIRA:tiffanie 06/03/18
[2018-06-01] MEDS: 0.9% Normal Saline 1,000 ML 100 ML IV (03:50)
[2018-06-01 05:26] LABS: Hematocrit 40.2 % (40-54); Hemoglobin 13.9 g/dl (13.0-16.5); Mean Corp Hgb Conc 34.6 g/gl (32-36); Mean Corpuscular Hgb 29.4 pg (27.0-32.0); Mean Platelet Vol. 9.8 fl (6.2-12.0); Platelet Count 198 K/mm3 (150-450); RBC Distribution Width CV 12.6 % (11.6-14.6); RBC Distribution Width SD 38.7 fl (35.1-43.9); Red Blood Count 4.73 M/mm3 (4.6-6.2); White Blood Count 4.8 K/mm3 (4.4-11.0)
[2018-06-01 05:59] LABS: Anion Gap 8 (5-15); BUN 6 mg/dL (7-18); BUN/Creat Ratio 5.7 RATIO (10-20); Calcium,Total 8.8 mg/dL (8.5-10.1); Chloride 112 mmol/L (98-107); Creatinine, Serum 1.05 mg/dL (0.70-1.30); EST Glomerular Filtration Rate 76 mL/min (>60); Est Glom Filt Rate - Afr Amer 92 mL/min (>60); Estimated Creatinine Clearance 96.72 ml/min; Glucose 92 mg/dL (74-106); Potassium 3.6 mmol/L (3.5-5.1); Sodium Level 143 mmol/L (136-145)
[2018-06-01 06:33] LABS: Scan Indicated on CBC? Y/N NO
--- NOTE | 2018-06-01 08:36 | NURSING ---
report called to EARL JOHNSON
--- NOTE | 2018-06-01 10:49 | PCM.IMDPSTOP ---
Problem List (1) GI bleeding Status: Acute Qualifiers: GI bleed type/associated pathology: unspecified gastrointestinal hemorrhage type Qualified Code(s): K92.2 - Gastrointestinal hemorrhage, unspecified Immediate Post-Op Note Date of Procedure: 06/01/18 Primary Surgeon/Physician: Uzair Duckworth hydrochloric manufacturing supervisor: none Pre-Operative Diagnosis: Hemoccult positive stool, diarrhea Post-Operative Diagnosis: Small hiatal hernia. Minimal antral gastritis. Mild proximal esophagitis. Lax elongated colon, no active bleeding Surgery/Procedure Performed:: Esophagogastroduodenoscopy with antral and distal esophageal and proximal esophageal cold forcep biopsies. Colonoscopy Description of Surgical Findings:: Timeout and informed consent was obtained. 62-year-old gentleman was taken to the endoscopy suite. His oropharynx anesthetized with Topex. He is placed in a left lateral decubitus position. Monitored anesthesia care. Flexible gastroscope was inserted into the esophageal inlet. Advanced without difficulty. EG junction was approximately at 40 cm. Small hiatal hernia noted. Minimal distal esophageal findings. Scope was advanced in the stomach. The stomach was noted to be enlarged and lax and the majority of the scope occupied that space however I was able to advance past the pylorus. The first and second portion of the duodenum were inspected this was not remarkable. Scope was withdrawn back in the stomach minimal erythema in the antrum noted. Biopsy obtained. Scope was retroflexed. The EG junction inspected the small hiatal hernia noted. A large patulous stomach noted. No evidence of any active bleeding no evidence for any erosions no evidence for any ulcerations. Excess fluid and air was aspirated free. Scope was withdrawn to the distal esophagus and within the hiatal small very small hiatal hernia cold forcep biopsy was obtained of the e.g. junction. The scope was withdrawn in the very proximal esophagus there appear to be a 2 x 1 cm area of irritation. Photographs were obtained and a cold forcep biopsy of this was obtained. Again no excessive bleeding the procedure was completed with patient tolerating it well. He was kept in left loud skin position. Digital rectal exam performed. Lax anal tone 2+ with prostate flexible colonoscope was in the rectum and advanced really is very elongated lax tortuous patulous colon. Transabdominal pressure was required. The patient was then placed supine in order to get the scope to go to the ascending colon. The patient was placed back in a left loud skin position. I was able to get the scope to go to the very proximal ascending colon. I could not absolutely high but within the cecum because of the lack of abdominal tone and elongated colon. There is no evidence of any active bleeding. I could visualize the cecum from several centimeters away did not see any focal abnormality. The scope was then carefully withdrawn from the ascending transverse descending and sigmoid colon. The most remarkable finding was a large patulous colon. No active bleeding. The scope was retroflexed within the rectum anorectal verge inspected this too was not remarkable. The procedure was completed with the patient tolerating it well. Impression Minimal antral gastritis. Small hiatal hernia with minimal distal esophagitis and minimal proximal esophagitis. Biopsies and pathology pending. Very elongated lax colon. No focal evidence of bleeding. Patient's next colonoscopy for screening due in 10 years. He will be notified of pathology results as they become available. He has not had any significant hemoglobin declined during his hospitalization. While awaiting the biopsies of the upper endoscopy he may continue to be treated with proton pump inhibitor or H2 denton. The upper scope was initiated at 1010. It was completed at 1018. The lower endoscopy started at 1021. Cecum was reached at 1037. Procedure was completed at 1043. Uzair Duckworth M.D., F.A.C.S. Estimated Blood Loss: Minimal Specimen's removed: Gastric biopsies esophageal biopsies Type of Anesthesia:: MAC
[2018-06-01] MEDS: Menthol/Lanolin/Calamine/Znox 113 GM Tube 1 APPLIC TOPICAL (11:32)
[2018-06-01] MEDS: DULoxetine Hcl 30 MG Capsule PO (11:32)
[2018-06-01] MEDS: Carvedilol 12.5 MG Tablet PO (11:32)
[2018-06-01] MEDS: Lisinopril 20 MG Tablet PO (11:32)
--- NOTE | 2018-06-01 11:32 | PCM.DC ---
- Discharge Diagnoses Current Active Problems: Current Active and Chronic Problems (Last Reviewed 02/27/18 @ 08:45 by ANNELISE Joseph) GI bleeding (Acute) Anticoagulated (Acute) You will use the following diet at home:: No restrictions Discharge Activity: Return to Normal Activity Call your doctor if you observe: Shortness of breath, Dizziness, Fainting spells, Chest pain Allergies/Adverse Reactions: Allergies No Known Allergies Allergy (Verified 02/25/18 09:45) Medications to take at Discharge Lisdexamfetamine Dimesylate [Vyvanse] 50 mg PO DAILY cap 08/29/17 Vitamin E (Dl,Tocopheryl Acet) [Vitamin E] 400 units PO DAILY 09/14/17 meclizine 25 mg tablet 25 mg PO PRN PRN 11/04/17 ocrelizumab 30 mg/mL intravenous solution 600 mg IV .COMPLEX 11/04/17 tizanidine 4 mg capsule 4 mg PO Q8H PRN 11/04/17 lisinopril 20 mg tablet 20 mg PO DAILY 02/25/18 albuterol sulfate 2.5 mg/3 mL (0.083 %) solution for nebulization 2.5 mg INHALATION Q4H PRN #180 vial 03/04/18 Simvastatin 20 mg PO QHS 04/17/18 Apixaban [Eliquis] 5 mg PO BID 05/28/18 Aspirin E.C. [Ecotrin] 81 mg PO DAILY 05/28/18 Carvedilol [Coreg (Beta Eugene)] 12.5 mg PO BID 05/28/18 Cholecalciferol (VIT D3) [Vitamin D3] 5,000 unit PO DAILY 05/28/18 Duloxetine Hcl [Cymbalta] 30 mg PO DAILY 05/28/18 Multivitamins,Therapeutic [Multivitamin] 1 tablet PO DAILY 05/28/18 Pantoprazole Sodium [Protonix] 40 mg PO BID #60 tab 06/01/18 The following prescriptions were given: Pantoprazole Sodium [Protonix] 40 mg PO BID #60 tab Primary Care Physician: Amanuel Duckworth III, MD [Primary Care Provider] - Please follow up with your Primary Care Physician in: 1 Week Test Results: Test results from this visit will be discussed in further detail at your follow-up appointment, if applicable. Please Follow Up With: Uzair Duckworth MD When: As needed. Office will call with [employer] results. Proposed Discharge Date: 06/01/18
[2018-06-01] MEDS: LISDEXAMFETAMINE DIMESYLATE 50 MG CAPSULE PO (11:39)
--- NOTE | 2018-06-01 11:43 | DS.PCM_ITS ---
<Shaneka Garcia - Last Filed: 06/01/18 11:44> Discharge Date and Diagnosis Date of Admission: 05/28/18 Date of Discharge: 06/01/18 - Primary Discharge Diagnosis Active and Suspected Problems (Last Reviewed 02/27/18 @ 08:45 by ANNELISE Joseph) 1. Lower GI bleed secondary to mild gastritis/esophagitis complicated by chronic anticoagulation with Eliquis 2. Acute kidney injury-resolved. 3. Gastroenteritis-resolved. - Secondary Discharge Diagnosis Chronic Problems (Last Reviewed 02/27/18 @ 08:45 by ANNELISE Joseph) Abnormal EKG (Chronic) Obstructive sleep apnea (Chronic) Paroxysmal atrial fibrillation (Chronic) Atrial septal defect (Chronic) Multiple sclerosis (Chronic) Pulmonary embolism (Chronic) Hypertension (Chronic) Hospital Course and Treatment Dr. Duckworth- General Surgery Operations: None Procedures: Colonoscopy, EGD Summary of Care Provided: Patient is a 62-year-old male admitted 05/28/2018 due to blood per rectum. He has a past medical history of MS, paroxysmal atrial fibrillation, obstructive sleep apnea, history of bladder cancer, history of pulmonary embolism, depression, hyperlipidemia. 1. Lower GI bleed secondary to mild gastritis/esophagitis complicated by chronic anticoagulation with Eliquis-hemoglobin has remained within normal limits during admission. Patient did not require blood transfusion. Patient underwent EGD/colonoscopy due to diarrhea with occult blood positive stool. EGD colonoscopy demonstrated small hiatal hernia, mild antral gastritis, mild proximal esophagitis, lax elongated colon, no active bleeding. Biopsies taken. Patient will be notified by Dr. Duckworth's office when results become available. Patient will be discharged on Protonix 40 mg twice daily. He will continue Eliquis regimen at discharge. Patient will follow up with primary care physician in 1 week. Can follow-up with Dr. Duckworth as needed. Plan for routine colonoscopy in 10 years. 2. Acute kidney injury-resolved. Secondary to dehydration and GI bleed. 3. Gastroenteritis-resolved. Stool studies negative. 4. Paroxysmal atrial fibrillation-continue Eliquis, Coreg. 5. Multiple sclerosis with associated debility-chronic left-sided hemiparesis. 6. History of pulmonary embolism-continue Eliquis at discharge. 7. Depression-continue Cymbalta. 8. Hyperlipidemia-continue statin. 9. Hypertension-continue home lisinopril, carvedilol regimen. General: Alert, Oriented x3, Cooperative, No apparent distress HEENT: Atraumatic, PERRLA, EOMI, Normocephalic Oral: Moist Mucosa Neck: Supple, No JVD, Negative Carotid Bruits Lungs: Clear to auscultation, Normal air movement Cardiovascular: Regular rate, Regular Rhythm, Normal S1, Normal S2, No murmurs Abdomen: Bowel Sounds Present, Soft, Non Tender, Non-Distended Extremities: No clubbing, No cyanosis, No edema, Capillary Refill Less than 3 Seconds Skin: No rashes, No breakdown Musculoskeletal: No Tenderness to Palpation of Joints or Extremities Neurological: Cranial nerves II-XII grossly intact, Neuro grossly intact, - - Chronic left-sided hemiplegia secondary to MS. Psych/Mental Status: Normal Affect, Appropriate Patient seen exam prior to discharge. Physical assessment as noted above. Patient is stable for discharge home with the follow-up recommendations as noted above. This patient was seen by ANNELISE Estes under the supervision of Dr. Robison. Discharge Diet: No Restrictions Discharge Activity: Return to Normal Activity Call your doctor if you observe: Shortness of breath, Dizziness, Fainting spells , Chest pain Home Medications: Medications to take at Discharge Lisdexamfetamine Dimesylate [Vyvanse] 50 mg PO DAILY cap 08/29/17 Vitamin E (Dl,Tocopheryl Acet) [Vitamin E] 400 units PO DAILY 09/14/17 meclizine 25 mg tablet 25 mg PO PRN PRN 11/04/17 ocrelizumab 30 mg/mL intravenous solution 600 mg IV .COMPLEX 11/04/17 tizanidine 4 mg capsule 4 mg PO Q8H PRN 11/04/17 lisinopril 20 mg tablet 20 mg PO DAILY 02/25/18 albuterol sulfate 2.5 mg/3 mL (0.083 %) solution for nebulization 2.5 mg INHALATION Q4H PRN #180 vial 03/04/18 Simvastatin 20 mg PO QHS 04/17/18 Apixaban [Eliquis] 5 mg PO BID 05/28/18 Aspirin E.C. [Ecotrin] 81 mg PO DAILY 05/28/18 Carvedilol [Coreg (Beta Eugene)] 12.5 mg PO BID 07/05/18 Cholecalciferol (VIT D3) [Vitamin D3] 5,000 unit PO DAILY 05/28/18 Duloxetine Hcl [Cymbalta] 30 mg PO DAILY 05/28/18 Multivitamins,Therapeutic [Multivitamin] 1 tablet PO DAILY 05/28/18 Pantoprazole Sodium [Protonix] 40 mg PO BID #60 tab 06/01/18 Following Prescrptions Were Given to Patient: Pantoprazole Sodium [Protonix] 40 mg PO BID #60 tab Primary Care Physician: Amanuel Duckworth III, MD [Primary Care Provider] - Please follow up with your Primary Care Physician in: 1 Week Please Follow Up With: Uzair Duckworth MD When: As needed. Office will call with biospy results. Disposition: Home Minutes spent on discharge:: 35 Patient Condition:: Stable Medical Necessity - Tobacco Use Smoking Status: Never smoker Tobacco Use: Non-smoker Meaningful Use Info Meaningful Use Diagnoses (Choose all that apply): None applicable <Jessica Robison - Last Filed: 06/01/18 14:15> Discharge Date and Diagnosis - Secondary Discharge Diagnosis Chronic Problems (Last Reviewed 02/27/18 @ 08:45 by ANNELISE Joseph) Abnormal EKG (Chronic) Obstructive sleep apnea (Chronic) Paroxysmal atrial fibrillation (Chronic) Atrial septal defect (Chronic) Multiple sclerosis (Chronic) Pulmonary embolism (Chronic) Hypertension (Chronic) Hospital Course and Treatment Summary of Care Provided: Patient seen by Shaneka nicole under my supervision. I agree with above noted assessment. The patient is a 62 year old medical with a complaint of lower GI bleed. Scheduled to have EGD and colonoscopy today findings of which were as documented in Ms. Garcia's note, with mild antral gastritis, mild proximal esophagitis and no active bleeding. Biopsies taken. He has a follow-up with Dr. Galvez in 10 years for repeat colonoscopy. Seen examined this morning. Complaints this morning and felt very well. He denied any fever or chills, any cough or chest pain, any abdominal pain or vomiting. He has not had any lower GI bleed again overnight. General: Alert, Oriented x3, Cooperative, No apparent distress HEENT: Atraumatic, PERRLA, EOMI, Normocephalic Oral: Moist Mucosa Neck: Supple, No JVD, Negative Carotid Bruits Lungs: Clear to auscultation, Normal air movement Cardiovascular: Regular rate, Regular Rhythm, Normal S1, Normal S2, No murmurs Abdomen: Bowel Sounds Present, Soft, Non Tender, Non-Distended Extremities: No clubbing, No cyanosis, No edema, Capillary Refill Less than 3 Seconds Skin: No rashes, No breakdown Musculoskeletal: No Tenderness to Palpation of Joints or Extremities Neurological: Cranial nerves II-XII grossly intact, chronic left sided weakness o./a of MS [] Plan is to discharge patient home. To follow-up with PCP in 1 week. Follow-up with Dr. Bhatia s needed. For repeat colonoscopy in 10 years. Code Visit Inpatient E&M: 50178 Disch Hosp
--- NOTE | 2018-06-01 11:43 | NURSING ---
pt's home Vyvanse returned to pt's , Mirella Mesadelfino
--- NOTE | 2018-06-05 14:14 | CASEMGMT ---
RN MIRIAM DC PHONE CALL. Spoke with pt @ home. Pt states he is feeling well, does not have questions re: prescriptions or dc instructions. Pt states he has made f/u appointments. No suggestions for improving care, and RN MIRIAM thanked pt for using [facility]. Ousmane MOREAUN RN ACM
== END 2018-06-01 12:52 | disposition home or self-care (01) | DRG 378 ==
LOC: ED 16:33 → PCU 17:22
PROVIDERS: Nurse Practitioner Family; Surgery; Admitting Provider Hospitalist; Emergency Provider Emergency Medicine; Family Provider Family Medicine; PCP Family Medicine; Visit Provider Student in an Organized Health Care Education/Training Program
PROC: 0DJD8ZZ Inspection of Lower Intestinal Tract, Via Natural or Artificial Opening Endoscopic (ICD-10-PCS; CPT 45378; principal; 2018-06-01 09:55)
DX: K29.71 Gastritis, unspecified, with bleeding (principal); Q43.8 Other specified congenital malformations of intestine; N17.9 Acute kidney failure, unspecified; E86.0 Dehydration; I10 Essential (primary) hypertension; G35 Multiple sclerosis; K44.9 Diaphragmatic hernia without obstruction or gangrene; Z86.711 Personal history of pulmonary embolism; Z79.01 Long term (current) use of anticoagulants; K52.9 Noninfective gastroenteritis and colitis, unspecified; G47.33 Obstructive sleep apnea (adult) (pediatric); I48.0 Paroxysmal atrial fibrillation; K20.9 Esophagitis, unspecified; F32.9 Major depressive disorder, single episode, unspecified; E78.5 Hyperlipidemia, unspecified
CPT/HCPCS: 36415; 80048; 80053; 85014; 85018; 85025; 85027; 85610; 86850; 86900; 87493; 87506; 88305; 88313; 88342; 93005; 97110; 97162; 97166; 97535; 97802; 99285; J7030; J7040; A4216; J2405

== ENCOUNTER → 2018-10-21 07:52 | Outpatient (CLI) | payer MEDICARE, OTHER, SELFPAY ==
[2018-09-30 09:40] VITALS: BMI 29.0
[2018-10-21] VITALS (8 sets, daily range): BP systolic 140–166; BP diastolic 88–116; PULSE 68–82; RESP 15–18; TEMP 36.6–37; O2SAT 93; BMI 28.3
[2018-10-21] MEDS: MethylPREDNISolone 125 MG/2 ML Vial 100 MG IV (08:33)
[2018-10-21] MEDS: DiphenhydrAMINE 50 MG/ML Syringe 25 MG IV (08:34)
[2018-10-21] MEDS: Acetaminophen 500 MG Tablet 1000 MG PO (08:34)
[2018-10-21] MEDS: Ocrelizumab 600mg Infusion 40 MG IV (09:18)
--- OUTSIDE RECORDS SUMMARY | 2018-12-16 12:23 | XMS RPT_ITS ---
:1955 Author Organization OHIP Support Name Relationship Address Phone D Unavailable Unavailable Unavailable YENSHO, KARIN Unavailable [address] + [place] [address] YENSHO, BUDDY Unavailable [address] + [place] [address] D Unavailable Unavailable Unavailable YENSHO, KARIN Unavailable [address] + [place] [address] YENSHO, BUDDY Unavailable [address] + [place] [address] D Unavailable Unavailable Unavailable YENSHO, KARIN Unavailable [address] + [place] [address] YENSHO, BUDDY Unavailable [address] + [place] [address] D Unavailable Unavailable Unavailable YENSHO, KARIN Unavailable [address] + [place] [address] YENSHO, BUDDY Unavailable [address] + [place] [address] D Unavailable Unavailable Unavailable YENSHO, KARIN Unavailable [address] + [place] [address] YENSHO, BUDDY Unavailable [address] + [place] [address] D Unavailable Unavailable Unavailable YENSHO, KARIN Unavailable [address] + [place] [address] YENSHO, BUDDY Unavailable [address] + [place] [address] D Unavailable Unavailable Unavailable YENSHO, KARIN Unavailable [address] + [place] [address] YENSHO, BUDDY Unavailable [address] + [place] [address] D Unavailable Unavailable Unavailable YENSHO, KARIN Unavailable [address] + [place] [address] YENSHO, BUDDY Unavailable [address] + [place] [address] D Unavailable Unavailable Unavailable YENSHO, KARIN Unavailable [address] + [place] [address] YENSHO, BUDDY Unavailable [address] + [place] [address] D Unavailable Unavailable Unavailable YENSHO, KARIN Unavailable [address] + [place] [address] YENSHO, BUDDY Unavailable [address] + [place] [address] D Unavailable Unavailable Unavailable YENSHO, KARIN Unavailable [address] + [place] [address] YENSHO, BUDDY Unavailable [address] + [place] [address] D Unavailable Unavailable Unavailable YENSHO, KARIN Unavailable [address] + [place] [address] YENSHO, BUDDY Unavailable [address] + [place] [address] D Unavailable Unavailable Unavailable YENSHO, KARIN Unavailable [address] + [place] [address] YENSHO, BUDDY Unavailable [address] + [place] [address] D Unavailable Unavailable Unavailable YENSHO, KARIN Unavailable [address] + [place] [address] YENSHO, BUDDY Unavailable [address] + [place] [address] D Unavailable Unavailable Unavailable YENSHO, KARIN Unavailable [address] + [place] [address] YENSHO, BUDDY Unavailable [address] + [place] [address] D Unavailable Unavailable Unavailable YENSHO, KARIN Unavailable [address] + [place] [address] YENSHO, BUDDY Unavailable [address] + [place] [address] D Unavailable Unavailable Unavailable YENSHO, KARIN Unavailable NA + [place], [place] YENSHO, BUDDY Unavailable NA + [place], [place] D Unavailable Unavailable Unavailable YENSHO, KARIN Unavailable NA + [place], [place] YENSHO, BUDDY Unavailable NA + [place], [place] Care Team Providers Name Role Phone EMRE IIIMELINDA A Attending Unavailable CEBUL III, MELINDA A Attending Unavailable CEBUL III, MELINDA A Referring Unavailable CEBUL III, MELINDA A Attending Unavailable CEBUL III, MELINDA A Referring Unavailable QUYNH ELIAS ([facility]) Attending Unavailable Keron Monteiro Attending Unavailable Cebul III, Melinda Referring Unavailable Cebul III, Melinda Primary Care Unavailable Ashelfah, Ghasem Admitting Unavailable Cebul, Uzair Consulting Unavailable Koram, Jessica Nadeen Attending Unavailable Cebul III, Melinda Primary Care Unavailable SHERIE VOSS Attending Unavailable SHERIE VOSS Referring Unavailable Sita Cyr Attending Unavailable Cebul III, Melinda Referring Unavailable Sita Cyr Attending Unavailable Cebul III, Melinda Referring Unavailable Sita Cyr Attending Unavailable Cebul III, Melinda Referring Unavailable Keron Monteiro Attending Unavailable Ashelfah, Ghasem Admitting Unavailable Cebul III, Melinda Primary Care Unavailable Cebul, Uzair Consulting Unavailable Koram, Jessica Nadeen Attending Unavailable Koram, Jessica Nadeen Consulting Unavailable Otoniel Ni Attending Unavailable Cebul III, Melinda Referring Unavailable Dayanna Pettit Attending Unavailable Cebul, Uzair Attending Unavailable Ashelfah, Ghasem Admitting Unavailable Cebul III, Melinda Primary Care Unavailable Cebul, Uzair Consulting Unavailable Koram, Jessica Nadeen Attending Unavailable Koram, Jessica Nadeen Consulting Unavailable Ashelfah, Ghasem Admitting Unavailable Cebul III, Melinda Primary Care Unavailable Cebul, Uzair Consulting Unavailable Koram, Jessica Nadeen Attending Unavailable Koram, Jessica Nadeen Consulting Unavailable Ashelfah, Ghasem Admitting Unavailable Ashelfah, Ghasem Attending Unavailable Cebul III, Melinda Primary Care Unavailable Ashelfah, Ghasem Consulting Unavailable Az, Wilmer Small Attending Unavailable Cebul III, Melinda Primary Care Unavailable Az, Wilmer Small Referring Unavailable Masci, Hamilton Attending Unavailable Masci, Hamilton Referring Unavailable Cebul III, Melinda Primary Care Unavailable Keron Monteiro Attending Unavailable Keron Monteiro Referring Unavailable Cebul III, Melinda Primary Care Unavailable Keron Monteiro Attending Unavailable Cebul III, Melinda Referring Unavailable Cebul III, Melinda Primary Care Unavailable PROBLEMS PROBLEMS DATE TYPE CONDITION / CODE ATTENDING STATUS SOURCE 09/23/2018 Active Other long-term NA Active [facility] (current) drug [facility] [place] therapy / Repository Z79.899(ICD-10) 06/29/2018 Unknown I48.0 - Paroxysmal Keron Monteiro Active [place] atrial Community fibrillation / Hospital I48.0(ICD-10) Repository 06/29/2018 Unknown I26.02 - Saddle Keron Monteiro Active [place] embolus of [facility] pulmonary artery Hospital with acute cor Repository pulmonale / I26.02(ICD-10) 05/07/2018 Unknown N39.0 - Urinary AzWilmer king Active [place] tract infection, [facility] site not specified Hospital / N39.0(ICD-10) Repository 04/21/2018 Unknown G35 - Multiple Masci, Hamilton Active [place] sclerosis / Community G35(ICD-10) Hospital Repository 02/12/2018 Active 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[facility] obstruction / [place] N32.0(ICD-10) Repository 02/12/2018 Active Encounter for NA Active [facility] screening for [place] malignant neoplasm Repository of prostate / Z12.5(ICD-10) 01/21/2018 Unknown I48.91 - Keron Monteiro Active [place] Unspecified atrial Community fibrillation / Hospital I48.91(ICD-10) Repository PROCEDURES PROCEDURES No Procedure Records FoundRESULTS RESULTS PULMONARY VISIT REPORT Observed: 09/30/2018 Status: F Source: [place] 11:41 AM [facility] REPOSITORY Pulmonary Medicine of [address] [place] [address] OFFICE VISIT Date of Service: 09/30/18 MR#: [id number] Acct: [id number] Name: NERY MIDDLETON Rep #: [id number] : 1955 Provider: Otoniel Ni MD Age/Sex: 63/M Location: [facility] Status: Signed Assessment AND Plan Problems 1. Acute saddle pulmonary embolism with acute cor pulmonale I26.02 2. Multiple sclerosis G35 3. JOSH (obstructive sleep apnea) G47.33 Plan Patient overall appears to be doing okay on current settings. Patient does have some elevated central apneas noted on compliance report. If this reaches 10, patient may need a repeat sleep study and transition to ASV. Will continue with current therapy for now. Patient does have MS with limited mobility and would benefit from using incentive spirometer regularly. Patient is tolerating anticoagulation. Continue anticoagulation. Continue BiPAP at current settings. Transition to [place] Plan Detail Follow Up 6 Months (CSM) HPI 6 M FU: Chief Complaint: Follow-up sleep apnea Details: Patient is a 63-year-old male, currently under the care of Dr. Duckworth, who presents for evaluation secondary to complex sleep apnea. Since last visit, patient reports he has been admitted to the hospital with a possible GI bleed. Patient was found to have no obvious source of bleeding and was discharged on his baseline Eliquis therapy. Since that time, patient feels that he has done well. Patient's reports relatively stable neurologic condition. Patient is followed by neurology and tolerating well. Patient has been compliant with his Eliquis therapy. Patient denies any further complications with bleeding such as melena, hematochezia, epistaxis or hemoptysis. Patient believes his respiratory status is relatively stable, but states that he has to rely on others for majority of his listing. Patient can no longer stand and pivot on his own. Patient has been compliant with BiPAP therapy, but readily states I hate that thing. Patient's reports that he is much more interactive when he uses it. Patient denies any complications of mouth, hoarseness or epistaxis. Patient still takes some naps during the day but does not use his BiPAP at these events. Documentation reviewed with the patient Compliance report (August 2018): Compliant 87% of the time for an average of 5 hours 47 minutes on BiPAP 21/17 cmH2O with a residual AHI of 6.8 and well-controlled leak Intake Vital Signs09/30/18 Blood Pressure 170/90 H 09/30/18 Blood Pressure Location Rt brachial 09/30/18 Blood Pressure Position Sitting 09/30/18 Height 6 ft 5 in 09/30/18 Weight: 111.13 kg Intake Visit Reasons: 6 M FU DME Vendor: [employer] Accompanied by: Allergies No Known Allergies Allergy (Verified 09/30/18 09:41) Medications Lisdexamfetamine Dimesylate [Vyvanse] 50 mg PO DAILY cap 08/29/17 [Rx Confirmed 09/30/18] Vitamin E (Dl,Tocopheryl Acet) [Vitamin E] 400 units PO DAILY 09/14/17 [History Confirmed 09/30/18] meclizine 25 mg tablet 25 mg PO PRN PRN 11/04/17 [History Confirmed 09/30/18] ocrelizumab 30 mg/mL intravenous solution 600 mg IV .COMPLEX 11/04/17 [History Confirmed 09/30/18] tizanidine 4 mg capsule 4 mg PO Q8H PRN 11/04/17 [History Confirmed 09/30/18] albuterol sulfate 2.5 mg/3 mL (0.083 %) solution for nebulization 2.5 mg INHALATION Q4H PRN #180 vial 03/04/18 [Rx Confirmed 09/30/18] Simvastatin 20 mg PO QHS 04/17/18 [History Confirmed 09/30/18] Apixaban [Eliquis] 5 mg PO BID 05/28/18 [History Confirmed 09/30/18] Carvedilol [Coreg (Beta Eugene)] 12.5 mg PO BID 05/28/18 [History Confirmed 09/30/18] Cholecalciferol (VIT D3) [Vitamin D3] 5,000 unit PO DAILY 05/28/18 [History Confirmed 09/30/18] Duloxetine Hcl [Cymbalta] 30 mg PO DAILY 05/28/18 [History Confirmed 09/30/18] Multivitamins,Therapeutic [Multivitamin] 1 tab PO DAILY 05/28/18 [History Confirmed 09/30/18] bethanechol chloride 10 mg tablet 10 mg PO TID tab 06/29/18 [History Confirmed 09/30/18] lisinopril 40 mg tablet 40 mg PO QDAY 06/29/18 [History Confirmed 09/30/18] amoxicillin 875 mg-potassium clavulanate 125 mg tablet 1 tab PO BID #20 tab 08/27/18 [Rx] pantoprazole 40 mg tablet,delayed release 40 mg PO BID #60 tab 09/15/18 [Rx Confirmed 09/30/18] [facility] Medical History Abnormal EKG (Chronic) Obstructive sleep apnea (Chronic) Paroxysmal atrial fibrillation (Chronic) Atrial septal defect (Chronic) Multiple sclerosis (Chronic) Bladder cancer (Resolved) Pulmonary embolism (Chronic) Hypertension (Chronic) Kidney stones (Chronic) Atrial fibrillation with RVR (Resolved) S/P vasectomy (Inactive) Surgical History ureteroscopy (Inactive) Family History Father CAD (coronary artery disease) Hypertension Myocardial infarction Mother Hypertension Sister Multiple sclerosis Social History Smoking Status: Never smoker Review of Systems Const CONSTITUTIONAL: Positive fatigue; negative anorexia, body ache, chills, daytime sleepiness, fever(s), night sweats, oral thrush, stops breathing during sleep, weight loss, sleeping in chair, weight loss, weight gain, frequent colds, seasonal allergies, other, headache(s) or orthopnea EETM Ear Nose Throat Mouth: Positive hearing normal; negative hoarseness, dry mouth in morning, change in vision, itchy eyes, eye pain, swallowing Difficulty, ear pain, headache(s), mouth pain, nasal congestion, nasal discharge, sinus pain, sinus pressure, sore throat, other, hard of hearing, nose bleed or post nasal drip Cardio Cardiovascular: Negative chest pain, chest pain at rest, chest pain with activity, irregular heart rhythm, edema, shortness of breath when lying down, palpitations, other or murmur Resp Respiratory: Positive as per HPI; negative shortness of breath, pain with cough, wheezing, chest congestion, cough, chest tightness, pain on inspiration, inhalers, increase use of rescue inhalers, snoring, apnea or other Gastro Gastrointestional: Negative bloody stools, change in appetite, difficulty swallowing, reflux, hematemesis, melena stool, loose stool, constipation or other Genitourinary: Negative blood in urine, nocturia, pain with urination or other Musc Musculoskeletal: Negative body pain, back pain, neck pain or other Skin/Breast Skin/Breast: Negative dry skin, itching, unusual bruising, breast lump, other or rash Neuro Neurological: Positive weakness; negative restless legs, confusion or other Psych Psychocological: Negative abnormal sleep pattern, anxiety, thoughts of hurting self/others, hopelessness or other Lymph Lymphatic: Negative easy bleeding, easy bruising, other or swollen lymph nodes Exam Const Constitutional: Positive conversant, cooperative, in no acute respiratory distress, well developed, well nourished, good hygiene and appears older than stated age; negative wearing supplemental oxygen, dyspenic or smells of smoke Head Head: Positive normocephalic and atraumatic; negative cyanosis of lips/distal nose, frontal sinus tenderness or maxillary sinus tenderness Eyes Eye: Positive clear conjunctiva; negative nystagmus, scleral abnormality or cataract present Ears Ear: Positive hearing normal and external ears normal; negative hard of hearing Nose Nose: Positive external nose normal, septum normal and no nasal discharge; negative epistaxis or nasal polyp Mouth Mouth: Positive oral mucosae normal, no lesions and posterior oropharynx is adequate; negative post nasal drip, malodorous breath or oral thrush present Mallampati Score: II: Mallampati Score Neck Neck: Positive normal visual inspection, full ROM and trachea midline; negative lymphadenopathy or JVD Chest Wall Chest: Positive normal inspection of the chest and symmetric chest movement; negative crepitus or tenderness Resp lung sounds: Positive diminished and prolonged expiratory time; negative wheezes, rhonchi, rales, use of accessory muscles, wheeze present on forced exhalation or dullness to percussion Cardio Cardiac: Positive regular rate, regular rhythm, S1 normal and S2 normal; negative murmur, rub or gallop GI GI: Positive normal to inspection and normal bowel sounds; negative distended, ascites or epigastric tenderness Genitourinary: Positive deferred Musc Musculoskeletal: Positive kyphosis and in a wheelchair; negative scoliosis Skin Pulmonary Skin Exam: Positive intact, lesion (Several superficial abrasions of the lower extremities noted.), dermal atrophy and scaly; negative rash or erythema Pulses Pulse: Yes radial pulses present Extremities Extremities: Yes capillary refill normal, No clubbing, No cyanosis, Yes edema (1+ LE) Neuro Neurologic: Yes conversant Patient at neurologic baseline. Decreased movement of left upper extremity and weakness of the lower extremities. Some trunk instability noted. Lymph Lymphatic: No lymphadenopathy Psych Appearance: Positive grossly normal Mental Status: Positive mental status grossly normal Mood: Positive congruent mood Affect: Positive normal affect Coding Level of Care Code Off vis,est,level 3 Diagnoses Acute saddle pulmonary embolism with acute cor pulmonale I26.02 Acute cor pulmonale presence: with acute cor pulmonale Chronicity: acute Pulmonary embolism type: saddle Multiple sclerosis G35 JOSH (obstructive sleep apnea) G47.33 09/30/18 1141 <Electronically signed by Otoniel Ni MD> Date Otoniel Ni MD Cosigner Signature: Date (if applicable) CC: Melinda Duckworth III, MD PROGRESS Observed: 09/24/2018 Status: COMPLETED Source: [place] 10:03 AM [facility] REPOSITORY O ID: [id number] Author: Quynh Lundberg ([facility]) [facility] Service: (none) Author Type: Nurse Practitioner Type: Progress Notes Filed: 09/24/2018 4:03 PM Note Text: Medicare Yearly Visit Medical B eligibilty date 2007 Date of last exam unknown PAST MEDICAL HISTORY Diagnosis Date - Chronic atrial fibrillation (HCC) 10/30/2017 on Eliquis - Essential hypertension, benign - History of pulmonary embolus (PE) 11/12/2017 saddle embolus, Jul 2017 - 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 posterior wall of urinary bladder (HCC) 11/12/2017 dx 2014 - Multiple sclerosis (HCC) primary progressive II - Obstructive sleep apnea - Recurrent UTI 02/21/2016 PAST SURGICAL HISTORY Procedure Laterality Date - COLONOSCOP W/ OR W/O [facility] SPEC 01-17-16 - COLONOSCOP W/ OR W/O [facility] SPEC 06/01/2018 [facility]-repeat 10 years-05/2028 - CYSTO W LITHOTRIPSY Left 02/24/15 cyst - CYSTO W/FB, STENT EXT-PROC RM Left 01/21/15 - EGD W/O OR W/BRUSH/WASH 06/01/2018 Patient has no known allergies. Medications reviewed: Yes FAMILY HISTORY Problem Relation Age of Onset - Cancer Mother LUNG - Heart Father - Coronary Artery Disease Father - Hypertension Mother - Hypertension Father SOCIAL HISTORY: Social History Marital status: Spouse name: Years of education: Number of children: Social History Main Topics Smoking status: Never Smoker Smokeless tobacco: Never Used Alcohol use: No Drug use: No Nery has limited mobility and can not participate in aerobic exercise uses exercise bands- couple times a week. He watches his diet for sodium, low fat and low cholesterol some of the time. List of current specialists seen: Neurology Cardiology Dr. Monteiro every [address] Terrell every [address] Calle- JOSH End of Live Planning discussed including patients advanced directive wishes: Yes- aware I am willing to follow Nery's advanced directives. Depression screen He in the past two weeks denies, admits to having felt down, depressed, hopeless or with little interest or pleasure in doing things. Functional Ability/Safety Screen 1. Was the patient's timed Up and Go test unsteady or longer than 30 seconds? patient is in electronic WC, transfers by sliding/scooting- MS 2. Does the patient need help with the phone, transportation, shopping,preparing meals, housework, laundry, medications or managing money? No 3. Does your home have rugs in the hallway, lack of grab bars in the bathroom, lack of handrails on the stairs or have poor lighting? No Hearing Evaluation: normal PHYSICAL EXAM BP 136/88 Pulse 72 SpO2 95% Alert and oriented X 3: YES There is no height or weight on file to calculate BMI. Visual acuity: OD: 20/25 OS: 20/ 40 OU: 20/20 With glasses Heart: without murmur, irregularly rate and rhythm Lungs: Lungs clear to auscultation, No wheezing, rales or rhonchi ASSESSMENT/PLAN: 63 year old male The following prevention plan was discussed during the office visit and provided to the patient: - Vaccines recommended Influenza - Lipid panel Quynh Elias APRN.SENIOR QA AUTOMATION ENGINEER 63 year old male here for INACTIVATED INFLUENZA VACCINE. 0513-2297 Season Patient is identified by name and date of : Yes [] CONTRAINDICATIONS color enhanced section Age less than 6 months? No Allergy to eggs, chicken, chicken feathers, or chicken dander? No Allergy to thimerosal (a preservative) or formaldehyde, gelatin? No History of severe reaction to any vaccine component or a previous dose of influenza vaccination? No History of Guillain-Offerman Syndrome within 6 weeks after a previous influenza vaccine? No Patient is not moderately or severely ill? No Current temperature greater or equal to 100.4F? No History of Bone Marrow Transplant prior 6 months or solid organ transplant in the past 3 months ? No History of fainting after a prior injection or medical procedure? No- ? If patient has fainted in the past, the CDC recommends sitting or lying down for 15 minutes after the vaccination. [] VERIFICATION color enhanced section Was the answer Yes for any of the above contraindications? No contraindications present. Acceptable to proceed with vaccine. Patient/guardian agrees the above answers are true to the best of their knowledge? Yes Flu vaccine information sheet given? Yes See immunization activity in [facility] for details of immunizations adminstered today. Patient age: [age] year old For The 4604-3868 Flu Season 6-35 months old: Fluzone 0.25 ml - IM (Preservative Free) 3 years of age: Fluzone 0.5 ml - IM (Preservative Free) 3 years and older: Fluzone 0.5 ml- IM-(with Preservatives) 65+ years old: 2-49 years old Fluzone High-Dose 0.5 ml - IM (Preservative Free) FLUMIST- intranasal REMEMBER: If patient is less than 9 years of age and this is the first vaccine of Influenza to be received in any flu season, they should receive a second dose in one months time. CNOV Observed: 09/24/2018 Status: COMPLETED Source: [place] 10:00 AM [facility] REPOSITORY Office Visit (FAMPWS) NERY MIDDLETON ([id number]) 1955 M Date Time Provider Department 09/24/18 10:00 AM [facility] During your visit today, we recorded the following information about you: Pulse Blood pressure 72/minute 136/88 Quynh Elias APRN.CNP 09/24/2018 4:03 PM Signed Medicare Yearly Visit Medical B eligibilty date 2007 Date of last exam unknown PAST MEDICAL HISTORY Diagnosis Date - Chronic atrial fibrillation (HCC) 10/30/2017 on Eliquis - Essential hypertension, benign - History of pulmonary embolus (PE) 11/12/2017 saddle embolus, Jul 2017 - 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 posterior wall of urinary bladder (HCC) 11/12/2017 dx 2014 - Multiple sclerosis (HCC) primary progressive II - Obstructive sleep apnea - Recurrent UTI 02/21/2016 PAST SURGICAL HISTORY Procedure Laterality Date - COLONOSCOP W/ OR W/O [facility] SPEC 01-17-16 - COLONOSCOP W/ OR W/O [facility] SPEC 06/01/2018 [facility]-repeat 10 years-05/2028 - CYSTO W LITHOTRIPSY Left 02/24/15 cyst - CYSTO W/FB, STENT EXT-PROC RM Left 01/21/15 - EGD W/O OR W/BRUSH/WASH 06/01/2018 Patient has no known allergies. Medications reviewed: Yes FAMILY HISTORY Problem Relation Age of Onset - Cancer Mother LUNG - Heart Father - Coronary Artery Disease Father - Hypertension Mother - Hypertension Father SOCIAL HISTORY: Social History Marital status: Spouse name: Years of education: Number of children: Social History Main Topics Smoking status: Never Smoker Smokeless tobacco: Never Used Alcohol use: No Drug use: No Nery has limited mobility and can not participate in aerobic exercise uses exercise bands- couple times a week. He watches his diet for sodium, low fat and low cholesterol some of the time. List of current specialists seen: Neurology Cardiology Dr. Monteiro every [address] Terrell every [address] Calle- JOSH End of Live Planning discussed including patients advanced directive wishes: Yes- aware I am willing to follow Nery's advanced directives. Depression screen He in the past two weeks denies, admits to having felt down, depressed, hopeless or with little interest or pleasure in doing things. Functional Ability/Safety Screen 1. Was the patient's timed Up and Go test unsteady or longer than 30 seconds? patient is in electronic WC, transfers by sliding/scooting- MS 2. Does the patient need help with the phone, transportation, shopping,preparing meals, housework, laundry, medications or managing money? No 3. Does your home have rugs in the hallway, lack of grab bars in the bathroom, lack of handrails on the stairs or have poor lighting? No Hearing Evaluation: normal PHYSICAL EXAM BP 136/88 Pulse 72 SpO2 95% Alert and oriented X 3: YES There is no height or weight on file to calculate BMI. Visual acuity: OD: 20/25 OS: 20/ 40 OU: 20/20 With glasses Heart: without murmur, irregularly rate and rhythm Lungs: Lungs clear to auscultation, No wheezing, rales or rhonchi ASSESSMENT/PLAN: 63 year old male The following prevention plan was discussed during the office visit and provided to the patient: - Vaccines recommended Influenza - Lipid panel Quynh Elias APRN.SENIOR QA AUTOMATION ENGINEER 63 year old male here for INACTIVATED INFLUENZA VACCINE. 1582-1233 Season Patient is identified by name and date of : Yes [] CONTRAINDICATIONS color enhanced section Age less than 6 months? No Allergy to eggs, chicken, chicken feathers, or chicken dander? No Allergy to thimerosal (a preservative) or formaldehyde, gelatin? No History of severe reaction to any vaccine component or a previous dose of influenza vaccination? No History of Guillain-Offerman Syndrome within 6 weeks after a previous influenza vaccine? No Patient is not moderately or severely ill? No Current temperature greater or equal to 100.4F? No History of Bone Marrow Transplant prior 6 months or solid organ transplant in the past 3 months ? No History of fainting after a prior injection or medical procedure? No- ? If patient has fainted in the past, the CDC recommends sitting or lying down for 15 minutes after the vaccination. [] VERIFICATION color enhanced section Was the answer Yes for any of the above contraindications? No contraindications present. Acceptable to proceed with vaccine. Patient/guardian agrees the above answers are true to the best of their knowledge? Yes Flu vaccine information sheet given? Yes See immunization activity in [facility] for details of immunizations adminstered today. Patient age: [age] year old For The 2467-6276 Flu Season 6-35 months old: Fluzone 0.25 ml - IM (Preservative Free) 3 years of age: Fluzone 0.5 ml - IM (Preservative Free) 3 years and older: Fluzone 0.5 ml- IM-(with Preservatives) 65+ years old: 2-49 years old Fluzone High-Dose 0.5 ml - IM (Preservative Free) FLUMIST- intranasal REMEMBER: If patient is less than 9 years of age and this is the first vaccine of Influenza to be received in any flu season, they should receive a second dose in one months time. Referring Provider: SELF [200] Allergies As of Date: 09/24/2018 (No Known Allergies) Date Reviewed: 06/04/2018 Reviewed by: Chanel ([facility]) LUIS ANTONIO Baez - Fully Assessed Reason for Visit: Medicare Wellness Exam [4060] Imm/Inj [58] Cmt: Flu Vaccine Reason For Visit History Recorded Primary Visit Diagnosis:Need for vaccination [Z23] Other Visit Diagnosis:Need for hepatitis C screening test [Z11.59] Order(s):INFLUENZA VACCINE QUADRIVALENT AGE 3 YRS PLUS + IM [37297CHP] Order #: [id number] HEP C AB IA BLOOD [SQAHCV] Order #: [id number] FUTURE DULoxetine (CYMBALTA) 30 mg capsuleTake 1 capsule by mouth once daily.Disp: 90 capsuleRfl: 3 Prescriptions as of 09/24/2018 Sig: PANTOPRAZOLE 40 MG TABLET,DEL* Take 40 mg by mouth once king* SIMVASTATIN 20 MG TABLET Take 20 mg by mouth daily at * MOMETASONE 0.1 % TOPICAL CREAM Apply 1 application to affect* COMPOUNDED PRESCRIPTION Power wheelchair Dx multip* CARVEDILOL 12.5 MG TABLET Take 1 tablet by mouth twice * APIXABAN 5 MG TABLET Take 1 tablet by mouth twice * COMPOUNDED PRESCRIPTION Inflatable Emergency Lift Bel* CHOLECALCIFEROL (VITAMIN D3) * Take 1 capsule by mouth once * LISDEXAMFETAMINE 50 MG CAPSULE Take 1 capsule by mouth once * BETHANECHOL CHLORIDE 10 MG TA* Take 1 tablet by mouth three * MECLIZINE 25 MG TABLET Take 1 tablet by mouth three * TIZANIDINE 4 MG TABLET Take 1 tablet by mouth every * DAILY MULTIVITAMIN TABLET Take one(1) tablet daily. VITAMIN E 1,000 UNIT CAPSULE Take one(1) tablet daily. DULOXETINE 30 MG CAPSULE,MERLE* Take 1 capsule by mouth once * Problem List As Of Date 09/24/2018 Noted Resolved BENIGN HYPERTENSION [I10] MULTIPLE SCLEROSIS [G35] Depression [F32.9] INVALID FOR* Neurogenic bladder [N31.9] INVALID FOR* Recurrent UTI [N39.0] INVALID FOR* Chronic atrial fibrillation (HCC) [I48.2] INVALID FOR* More... History of pulmonary embolus (PE) [Z86.711] INVALID FOR* More... 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 posterior wall of urinary*INVALID FOR* More... Prescriptions ordered this encounter Disp Refills Start End DULOXETINE 30 MG CAPSULE,DELAYED REL* 90 c* 3 09/24/2018 Class: Med Update Route: ORAL Sig: Take 1 capsule by mouth once daily. Medications Discontinued During This Encounter carvedilol (COREG) 12.5 mg tablet 180 * 3 10/30/2017 09/24/2018 Class: CareMark Route: ORAL Sig: Take 1 tablet by mouth twice daily. Disc: Duplicate Entry apixaban (ELIQUIS) 5 mg tab tab(s) 180 * 3 10/30/2017 09/24/2018 Class: CareMark Route: ORAL Sig: Take 1 tablet by mouth twice daily. Patient not taking: Reported on 06/04/2018 Disc: Duplicate Entry lisinopril (ZESTRIL, PRINIVIL) 40 mg* 90 t* 3 06/04/2018 09/24/2018 Route: ORAL Sig: Take 1 tablet by mouth once daily. Disc: Duplicate Entry DULoxetine (CYMBALTA) 30 mg capsule 90 c* 3 06/04/2018 09/24/2018 Class: Med Update Route: ORAL Sig: Take 1 capsule by mouth once daily. Disc: Duplicate Entry Encounter Status:Closed by QUYNH ELIAS CNP on 09/24/18 BASIC METABOLIC PANL Collected: 09/23/2018 Status: F Source: [place] 7:50 AM [facility] REPOSITORY TYPE CODE TESTS RESULT OUT OF REFERENCE UNITS RANGE LAB GLU 74-99 mg/dL Glucose High 103 LAB BUN 7-21 mg/dL BUN 19 LAB CRET 0.73-1.22 mg/dL Creatinine 1.14 LAB NA 136-144 mmol/L Sodium 141 LAB K 3.7-5.1 mmol/L Potassium 4.3 LAB CL 97-105 mmol/L Chloride High 107 LAB CO2 22-30 mmol/L CO2 25 LAB AGAP 9-18 mmol/L Anion Gap 9 LAB CA 8.5-10.2 mg/dL Calcium, Total 10.2 LAB GFRAA eGFR- >60 Amer. LAB GFRNAA . eGFR-All Other Races >60 Result Comment: eGFR (Estimated GFR) Units of measure: mL/min/1.73 meters squared eGFR is derived from the reexpressed MDRD Study equation using the following parameters: serum creatinine, age, gender and race. The creatinine assay has been calibrated to be traceable to IDMS. An eGFR <60 mL/min/1.73m2 for >3 months is consistent with chronic kidney disease. Refer to KDOQI guidelines for clinical interpretation. In patients with unstable renal function, e.g. those with acute kidney injury, the eGFR may not accurately reflect actual GFR. LIPID PANEL, BASIC Collected: 09/23/2018 Status: F Source: [place] 7:50 AM [facility] REPOSITORY TYPE CODE TESTS RESULT OUT OF REFERENCE UNITS RANGE LAB CHOL <200 mg/dL Cholesterol 133 Result Comment: <200 mg/dL, Desirable 200-239 mg/dL, Borderline high >239 mg/dL, High LAB TRIGLY <150 mg/dL Triglyceride 118 Result Comment: <150 mg/dL, Normal 150-199 mg/dL, Borderline high 200-499 mg/dL, High >499 mg/dL, Very high LAB HDL >39 mg/dL HDL-Cholesterol 41 Result Comment: 40-59 mg/dL, Acceptable >59 mg/dL, High: Negative risk factor for coronary heart disease <40 mg/dL, Low: Positive risk factor for coronary heart disease LAB LDL <100 mg/dL LDL-Cholesterol 68 Result Comment: <100 mg/dL, Optimal 100-129 mg/dL, Near optimal/above optimal 130-159 mg/dL, Borderline high 160-189 mg/dL, High >189 mg/dL, Very high Secondary prevention optimal LDL Cholesterol levels are recommended to be < 70 mg/dL LAB NONHDL <130 mg/dL Non HDL Cholesterol 92 Result Comment: <130 mg/dL, Optimal 130-159 mg/dL, Near optimal/above optimal 160-189 mg/dL, Borderline high 190-219 mg/dL, High >219 mg/dL, Very high Secondary prevention optimal non HDL Cholesterol levels are recommended to be < 100 mg/dL LAB FT hrs Fasting Time 12 LAB VLDL <30 mg/dL VLDL Cholesterol 24 LAB TCHDL <5.10 TC:HDL Ratio 3.24 LAB LDLHDL <2.54 LDL:HDL Ratio 1.66 Result Comment: Reference: 1. National Cholesterol Education Program ATP III Guideline At-A-Glance Quick Desk Reference: National Heart, Lung, and Blood Beatrice. National Institutes of Health. 2001: NIH Publication No. 01-3305. 2. An International Atherosclerosis Society position paper: global recommendations for the management of dyslipidemia: executive summary, Atherosclerosis. 2014: 232(2):410-413. Performed By: #### LIPB #### [facility] [place] [address] [place], [place] [address] CNPTOUTREACH Observed: 09/08/2018 Status: COMPLETED Source: [place] 12:00 AM [facility] REPOSITORY Patient Outreach (FAMPST) NERY MIDDLETON ([id number]) 1955 M Date Time Provider Department 09/08/18 MELINDA DUCKWORTH III During your visit today, we recorded the following information about you: Allergies As of Date: 09/08/2018 (No Known Allergies) Date Reviewed: 06/04/2018 Reviewed by: Chanel ([facility]) LUIS ANTONIO Baez - Fully Assessed Visit Diagnosis:Medication management [Z79.899] Order(s):BASIC METABOLIC PNL [SQBMP] Order #: [id number] FUTURE LIPID PANEL BASIC [SQLIPB] Order #: [id number] FUTURE Prescriptions as of 09/08/2018 Sig: PANTOPRAZOLE 40 MG TABLET,DEL* Take 40 mg by mouth once king* SIMVASTATIN 20 MG TABLET Take 20 mg by mouth daily at * X DULOXETINE 30 MG CAPSULE,MERLE* Take 1 capsule by mouth once * X LISINOPRIL 40 MG TABLET Take 1 tablet by mouth once d* MOMETASONE 0.1 % TOPICAL CREAM Apply 1 application to affect* COMPOUNDED PRESCRIPTION Power wheelchair Dx multip* CARVEDILOL 12.5 MG TABLET Take 1 tablet by mouth twice * APIXABAN 5 MG TABLET Take 1 tablet by mouth twice * X CARVEDILOL 12.5 MG TABLET Take 1 tablet by mouth twice * X APIXABAN 5 MG TABLET Take 1 tablet by mouth twice * Patient not taking: Reported on 06/04/2018 COMPOUNDED PRESCRIPTION Inflatable Emergency Lift Bel* CHOLECALCIFEROL (VITAMIN D3) * Take 1 capsule by mouth once * LISDEXAMFETAMINE 50 MG CAPSULE Take 1 capsule by mouth once * BETHANECHOL CHLORIDE 10 MG TA* Take 1 tablet by mouth three * MECLIZINE 25 MG TABLET Take 1 tablet by mouth three * TIZANIDINE 4 MG TABLET Take 1 tablet by mouth every * DAILY MULTIVITAMIN TABLET Take one(1) tablet daily. VITAMIN E 1,000 UNIT CAPSULE Take one(1) tablet daily. Problem List As Of Date 09/08/2018 Noted Resolved BENIGN HYPERTENSION [I10] MULTIPLE SCLEROSIS [G35] Depression [F32.9] INVALID FOR* Neurogenic bladder [N31.9] INVALID FOR* Recurrent UTI [N39.0] INVALID FOR* Chronic atrial fibrillation (HCC) [I48.2] INVALID FOR* More... History of pulmonary embolus (PE) [Z86.711] INVALID FOR* More... 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 posterior wall of urinary*INVALID FOR* More... Encounter Status:Closed by EPIC, PRODUSER on 10/09/18 CARDIOLOGY VISIT Observed: 06/29/2018 Status: F Source: [place] RE[facility] 3:14 PM [facility] REPOSITORY [facility] [address] [place] [address] OFFICE VISIT Date of Service: 06/29/18 MR#: [id number] Acct: [id number] Name: NERY MIDDLETON Rep #: [id number] : 1955 Provider: Keron Monteiro MD Age/Sex: 62/M Location: [facility] Status: Signed HPI HPI Chief Complaint: Routine f/u Details: NERY MIDDLETON, is a 62 M who presents to the office today for hospital follow-up after previous hospitalization at [facility] for a massive pulmonary embolism, respiratory failure, and new onset atrial fibrillation with rapid ventricular rate. The patient also has active multiple sclerosis and has been debilitated for many years, he uses a wheelchair for most of his transfers. He is able to stand and pivot prior to hospitalization, developed increasing weakness during his hospital stay, discharged to a rehab facility and is now currently in a fdc for continued rehab. He is in a wheelchair today, on room air and accompanied by his . He reports that he has made significant strides as far as his strength and stamina are concerned, however he has not returned to baseline. He was able to stand for very short period of time today, not able to pivot yet. The patient was identified as likely having obstructive sleep apnea while hospitalized and began treatment with BiPAP. He is acclimating fairly well to the pressure support therapy and the mask. Prior to his hospitalization the patient did report that he was falling asleep easily during the day. His noted that he would fall asleep often while sitting in his chair. He is having some difficulty with dry mouth. He does have persistent fatigue, it is difficult to tell if the fatigue is from the untreated sleep apnea versus his MS. He is currently being treated by a neurologist from [place] for his MS, has stopped taking a medication and waiting for that medication to leave his system prior to beginning a new medication. He is compliant with his oral anticoagulation. Patient reverted back to normal sinus rhythm prior to discharge, and remained so clinically today. He had an echocardiogram dated 09/15/17 which showed an EF of 65%, unable to quantitate RVSP. In addition he reportedly was found to have a PFO, however the echocardiogram in the chart makes no mention of a bubble study. Repeat echo is pending. He denies any signs of bleeding such as hemoptysis, hematochezia, hematemesis or melena stools. He denies any chest pain, or palpitations. He was never a smoker. 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 He denies ever being exposed to any chemicals, gases or toxic inhalants. In addition, the patient states that his father had a myocardial infarction at age 42 and finally at age 59 after having bypass surgery. He was a non-smoker. He has no other family members with coronary disease. In early May 2018 the patient developed significant diarrhea and was admitted to [facility] where Dr. Harris Stafford performed an upper and lower GI endoscopy. This demonstrated mild hemorrhoids according to his , and his baby aspirin was discontinued. He remains on Eliquis. He denies any palpitations, chest pain, shortness of breath, or lower GI bleeding. In our office today his blood pressure is 130/70, pulse is 80 and regular. Physical exam demonstrates clear lungs bilaterally, regular rate and rhythm, normal S1/S2, no S3-S4. Lipids as of 12/25/16 showed LDL of 125, and HDL of 39. 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 Supervisor Required: No Accompanied by: Is patient in pain?: No Allergies No Known Allergies Allergy (Verified 06/29/18 13:42) Medications Lisdexamfetamine Dimesylate [Vyvanse] 50 mg PO DAILY cap 08/29/17 [Rx Confirmed 06/29/18] Vitamin E (Dl,Tocopheryl Acet) [Vitamin E] 400 units PO DAILY 09/14/17 [History Confirmed 06/29/18] meclizine 25 mg tablet 25 mg PO PRN PRN 11/04/17 [History Confirmed 06/29/18] ocrelizumab 30 mg/mL intravenous solution 600 mg IV .COMPLEX 11/04/17 [History Confirmed 06/29/18] tizanidine 4 mg capsule 4 mg PO Q8H PRN 11/04/17 [History Confirmed 06/29/18] albuterol sulfate 2.5 mg/3 mL (0.083 %) solution for nebulization 2.5 mg INHALATION Q4H PRN #180 vial 03/04/18 [Rx Confirmed 06/29/18] Simvastatin 20 mg PO QHS 04/17/18 [History Confirmed 06/29/18] Apixaban [Eliquis] 5 mg PO BID 05/28/18 [History Confirmed 06/29/18] Carvedilol [Coreg (Beta Eugene)] 12.5 mg PO BID 05/28/18 [History Confirmed 06/29/18] Cholecalciferol (VIT D3) [Vitamin D3] 5,000 unit PO DAILY 05/28/18 [History Confirmed 06/29/18] Duloxetine Hcl [Cymbalta] 30 mg PO DAILY 05/28/18 [History Confirmed 06/29/18] Multivitamins,Therapeutic [Multivitamin] 1 tab PO DAILY 05/28/18 [History Confirmed 06/29/18] Pantoprazole Sodium [Protonix] 40 mg PO BID #60 tab 06/01/18 [Rx Confirmed 06/29/18] bethanechol chloride 10 mg tablet 10 mg PO TID tab 06/29/18 [History Confirmed 06/29/18] lisinopril 40 mg tablet 40 mg PO QDAY 06/29/18 [History Confirmed 06/29/18] FOR[facility] Medical History Abnormal EKG (Chronic) Obstructive sleep apnea (Chronic) Paroxysmal atrial fibrillation (Chronic) Atrial septal defect (Chronic) Multiple sclerosis (Chronic) Bladder cancer (Resolved) Pulmonary embolism (Chronic) Hypertension (Chronic) Kidney stones (Chronic) Atrial fibrillation with RVR (Resolved) Surgical History S/P vasectomy (Inactive) ureteroscopy (Inactive) Family History Father CAD (coronary artery disease) Hypertension Myocardial infarction Mother Hypertension Sister Multiple sclerosis Social History Smoking Status: Never smoker ROS Const Const: Positive for weakness and other (Has MS); negative for fatigue, body ache, fever(s), headache(s), chills, frequent falls, night sweats, daytime sleepiness, difficulty sleeping, excessive sweating, weight gain, weight loss, increased appetite, poor appetite or anorexia Eyes Eyes: Negative for blind spots, loss of peripheral vision, transient loss of vision, blurry vision, change in vision, double vision, floaters, tunnel vision or other ENT ENT: Negative for headache(s), dizziness, hearing loss, tinnitus, Nosebleed/epistaxis, balance problems, post nasal drip, lip swelling, tongue swelling, bleeding gums, hoarseness, neck pain, dry mouth or other Cardio Chest Pain: No Palpitations: No Edema: Bilateral (Mild pitting, dependent ) Muscle aches with walking: None Resp Respiratory: Positive for SOB with activity (Thinks related to M.S.); negative for SOB at rest, SOB orthopnea\SOB lying down, Coughing up blood/hemoptysis, chest congestion, pain on inspiration, snoring, stridor, wheezing, crackles, paroxysmal nocturnal dyspnea or other GI GI: Negative nausea, vomiting, heartburn, constipation, belching, bloating, cramping, vomiting blood/hematemesis, bright, red blood in stools, black,tarry stools, loose stools, Difficulty Swallowing or other : Negative for hematuria, frequent nighttime urination/ nocturia, erectile dysfunction or abnormal vaginal bleeding Musc Musc: Positive for muscle weakness; negative for balance problems, muscle aches/ myalgia or joint pain Skin Skin: Negative redness, non-healing lesions, rash, unusual bruising, skin ulcer, wounds, jaundice or other Neuro Neuro: Positive for weakness and other (In motorized wheelchair, cannot walk); negative for headache(s), frequent falls, blurry vision, double vision, dizziness, lightheadedness, near syncope, syncope, orthostatic symptoms, confusion, memory loss, restless legs, vertigo, seizures or lack of coordination Memo Hematologic/Lymphatic: Negative for easy bleeding, easy bruising, enlarged lymph nodes or other Endo Endo: Negative for fatigue, excessive sweating, cold intolerance, heat intolerance, flushing, increased thirst/drinking, increased hunger, hair loss, hair growth or other Psych Psych: Negative for anxiety, depression, thoughts of harming anyone, thoughts of harming yourself, visual hallucinations, panic attacks or audible hallucinations Allergy Allergy/Immunology: Negative for lip swelling, Negative for tongue swelling, Negative for rash, Negative for throat swelling, Negative for hives Cardiology Exam Const Appearance: cooperative, healthy appearing and no acute distress Nutritional Appearance: well nourished Orientation: alert, oriented x3 and oriented to person Head Head: normal to inspection, atraumatic and normocephalic Nose: external nose normal Face and Sinus: face symmetric Mouth: oral mucosae normal Eyes General: appearance normal, both eyes and all related structures Eyelids: eyelids normal Conjunctivae: conjunctivae normal Pupils: PERRL and normal by confrontation EOM: EOM intact bilaterally Neck Neck: normal visual inspection and full ROM Carotids: normal carotid upstroke Chest Chest inspection: normal inspection of the chest Auscultation: Bilateral: Clear to Auscultation Cardio Palpation: normal PMI Rate: regular rate Rhythm: regular rhythm Heart sounds: S1 normal and S2 normal GI GI: normal to inspection, no hepatosplenomegaly and bowel sounds present Neuro General: alert, oriented x3, awake, CN's II-XI intact bilaterally and moves all extremities Skin Skin: no rashes or lesions noted Extremities Pulses: Normal: Right Femoral Pulse, Left Femoral Pulse, Right Dorsalis Pedis Pulse, Left Dorsalis Pedis Pulse, Right Posterior Tibial Pulse, Left Posterior Tibial Pulse, Right Radial Pulse, Left Radial Pulse Lower Extremity Edema: None: Bilateral Psych Psychological: normal affect Assessment AND Plan 1. Paroxysmal atrial fibrillation I48.0 Plan 1. Paroxysmal atrial fibrillation: She denies any palpitations. He is compliant with his BiPAP. Given the fact that he is in a wheelchair chronically, and suffers from MS, and previous DVT and pulmonary embolism, he is at high risk for recurrence. Recommended he continue lifelong Eliquis. In addition his heart rate is well controlled and remains in sinus rhythm. Continue Coreg, lisinopril. 2. Acute saddle pulmonary embolism with acute cor pulmonale I26.02 Plan 2. Status post PE: Patient is status post large saddle pulmonary embolism, and is currently doing quite well and is recovering nicely. Given his chronic wheelchair status, multiple sclerosis, he is at high risk for recurrence. Continue lifelong Eliquis. His upper and lower GI workup was negative for GI bleeding. 3. Return office in 6 months. This note was generated using a voice recognition system and there may be incorrect words, spelling or punctuation that were not noted when reviewing the office note prior to saving. Plan Detail Follow Up +6M ([place]) Coding Level of Care Code Off vis,est,level 3 Diagnoses Paroxysmal atrial fibrillation I48.0 Acute saddle pulmonary embolism with acute cor pulmonale I26.02 Pulmonary embolism type: saddle Chronicity: acute Acute cor pulmonale presence: with acute cor pulmonale Coding Level of Care Code Off vis,est,level 3 Diagnoses Paroxysmal atrial fibrillation I48.0 Acute saddle pulmonary embolism with acute cor pulmonale I26.02 Pulmonary embolism type: saddle Chronicity: acute Acute cor pulmonale presence: with acute cor pulmonale 06/29/18 1514 <Electronically signed by Keron Monteiro MD> Date Keron Monteiro MD Cosigner Signature: Date (if applicable) CC: Melinda Duckworth III, MD PROGRESS Observed: 06/04/2018 Status: COMPLETED Source: [place] 10:45 AM [facility] REPOSITORY O ID: [id number] Author: Melinda Duckworth III Service: (none) Author Type: Physician Type: Progress Notes Filed: 06/04/2018 12:20 PM Note Text: TRANSITION CARE MANAGEMENT (TCM) INITIAL CONTACT Strategy Director Outreach ? Provider Action/FYI: [facility]-admitted on for lower GI Bleed, d/c 06/01/2018 ? ? Initial contact with patient post discharge, spoke to patient. Patient identified by name and . ? SUMMARY: -Pt discharged from [facility] on 06/01/2018 . -Admitted for: Lower GI Bleed ? Do you have a hospital follow up appointment with your PCP? Appointment on 06/04/[address] Duckworth. Yes. Remind patient of appointment date, time, and location. If not within 14 calendar days of discharge - please reschedule accordingly. ? MEDICATIONS: Many patients have questions or concerns about their medications once they are home. Were you prescribed any new medications? If yes, what are those medications? Pantoprazole ? Were you told to hold any medications? No Were any of your medications discontinued? No ? Do you have any questions about getting or taking your medications? No ? Your discharge instructions/After visit Summary (AVS) are important in guiding you through the recovery process. Is there anything I might help you understand? No ? Do you have all the necessary equipment and supplies at home? Yes ? Medical records from recent hospitalization: Placed for provider to review Visit for Transitional Care Management CC: Nery is a 62 year old male following 3, days after the Hospital/Shelter Discharge HPI: Admitted for eval. for diarrhea with hematachezia. He has been on ASA 81mg qday based on FHx of ASHD-- Pt has not had chest pain or documented ASHD Reports indicate that he had upper and lower endoscopy during the hospitalization and that no source of bleeding was found, though he does have hemorrhoids and did have some upper GI tract erosions thought to be associated with acid reflux. The patient states he does not have pain sensation in his abdomen or GI tract so he is not aware of heartburn or abdominal pain. 2. Blood pressure at the hospital and at home are variable but usually too high. He denies that he ever gets low readings. No lightheadedness. 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 simvastatin (ZOCOR) 20 mg tablet Take 20 mg by mouth daily at bedtime. DULoxetine (CYMBALTA) 30 mg capsule Take 1 capsule by mouth once daily. lisinopril (ZESTRIL, PRINIVIL) 20 mg tablet Take 1 tablet by mouth once daily. mometasone (ELOCON) 0.1 % cream Apply 1 application to affected area once daily. COMPOUNDED PRESCRIPTION Power wheelchairDx multiple sclerosis with severe lower extremity weakness carvedilol (COREG) 12.5 mg tablet Take 1 tablet by mouth twice daily. apixaban (ELIQUIS) 5 mg tab tab(s) Take 1 tablet by mouth twice daily. carvedilol (COREG) 12.5 mg tablet Take 1 tablet by mouth twice daily. COMPOUNDED PRESCRIPTION Inflatable Emergency Lift Chair aspirin, enteric coated (ADULT LOW DOSE ASPIRIN) 81 mg EC tablet Take 1 tablet by mouth once daily. Cholecalciferol, Vitamin D3, 1,000 unit cap Take 1 capsule by mouth once daily. lisdexamfetamine (VYVANSE) 50 mg capsule Take 1 capsule by mouth once daily. bethanechol (URECHOLINE) 10 mg tablet Take 1 tablet by mouth three times daily. meclizine (ANTIVERT) 25 mg Tab Take 1 tablet by mouth three times daily. tiZANidine (ZANAFLEX) 4 mg tablet Take 1 tablet by mouth every 8 hours as needed (muscle spasms). DAILY MULTIVITAMIN TAB Take one(1) tablet daily. VITAMIN E 1,000 UNIT CAP Take one(1) tablet daily. apixaban (ELIQUIS) 5 mg tab tab(s) Take 1 tablet by mouth twice daily. (Patient not taking: Reported on 06/04/2018 ) No current facility-administered medications for this visit. SOCIAL HISTORY: Social History Substance Use Topics - Smoking status: Never Smoker - Smokeless tobacco: Never Used - Alcohol use No FAMILY HISTORY: FAMILY HISTORY Problem Relation Age of Onset - Cancer Mother LUNG - Heart Father - Coronary Artery Disease Father - Hypertension Mother - Hypertension Father REVIEW OF SYSTEMS: PAIN ASSESSMENT: Negative for pain, history of chronic pain, or current treatment for a chronic pain condition. GENERAL: No weight loss, malaise or fevers RESPIRATORY: Negative for cough, hemoptysis, wheezing, COPD, dyspnea or shortness of breath CARDIOVASCULAR: Negative for chest pain, leg swelling, hypertension, CHF or palpitations GI: No nausea, vomiting, or diarrhea All other reviewed and negative other than HPI. PHYSICAL EXAMINATION BP 120/89 Pulse 81 Resp 18 General appearance: Sitting in a motorized wheelchair, well appearing, alert, in no acute distress, well-hydrated, well nourished Neck: Supple, no adenopathy; thyroid symmetric, normal size, no bruits Back: Lungs: clear to auscultation, no wheezing or rhonchi Heart: RRR without murmur, gallop, or rubs. No ectopy Abdomen: Abdomen soft, non-tender. Bowel sounds normal. No masses, organomegaly Imp: Gastric/esophageal erosions due to aspirin and GERD GI hemorrhage secondary to #1 Chronic anticoagulation Paroxysmal atrial fibrillation on Eliquis Multiple sclerosis?stable Hypertension?variable Plan: discontinue aspirin increase lisinopril 40mg daily--follow bp same other medications follow up with cardiology as appointed. return to office 6 mos and as needed Melinda Duckworth III MD June 04, 2018 10:45 AM CNLUCHO Observed: 06/04/2018 Status: COMPLETED Source: [place] 10:20 AM [facility] REPOSITORY Office Visit (FAMPWS) NERY MIDDLETON ([id number]) 1955 [place] Date Time Provider Department 06/04/18 10:20 AM MELINDA DUCKWORTH IIIPNAI During your visit today, we recorded the following information about you: Pulse Respiration Blood pressure 81/minute 18/minute 120/89 Chanel Baez CMA, MA 06/04/2018 12:20 PM Signed TRANSITION CARE MANAGEMENT (TCM) INITIAL CONTACT Strategy Director Outreach ? Provider Action/FYI: [facility]-admitted on for lower GI Bleed, d/c 06/01/2018 ? ? Initial contact with patient post discharge, spoke to patient. Patient identified by name and . ? SUMMARY: -Pt discharged from [facility] on 06/01/2018 . -Admitted for: Lower GI Bleed ? Do you have a hospital follow up appointment with your PCP? Appointment on 06/04/[address] Duckworth. Yes. Remind patient of appointment date, time, and location. If not within 14 calendar days of discharge - please reschedule accordingly. ? MEDICATIONS: Many patients have questions or concerns about their medications once they are home. Were you prescribed any new medications? If yes, what are those medications? Pantoprazole ? Were you told to hold any medications? No Were any of your medications discontinued? No ? Do you have any questions about getting or taking your medications? No ? Your discharge instructions/After visit Summary (AVS) are important in guiding you through the recovery process. Is there anything I might help you understand? No ? Do you have all the necessary equipment and supplies at home? Yes ? Medical records from recent hospitalization: Placed for provider to review Melinda Duckworth III MD 06/04/2018 12:20 PM Signed TRANSITION CARE MANAGEMENT (TCM) INITIAL CONTACT Strategy Director Outreach ? Provider Action/FYI: [facility]-admitted on for lower GI Bleed, d/c 06/01/2018 ? ? Initial contact with patient post discharge, spoke to patient. Patient identified by name and . ? SUMMARY: -Pt discharged from [facility] on 06/01/2018 . -Admitted for: Lower GI Bleed ? Do you have a hospital follow up appointment with your PCP? Appointment on 06/04/[address] Duckworth. Yes. Remind patient of appointment date, time, and location. If not within 14 calendar days of discharge - please reschedule accordingly. ? MEDICATIONS: Many patients have questions or concerns about their medications once they are home. Were you prescribed any new medications? If yes, what are those medications? Pantoprazole ? Were you told to hold any medications? No Were any of your medications discontinued? No ? Do you have any questions about getting or taking your medications? No ? Your discharge instructions/After visit Summary (AVS) are important in guiding you through the recovery process. Is there anything I might help you understand? No ? Do you have all the necessary equipment and supplies at home? Yes ? Medical records from recent hospitalization: Placed for provider to review Visit for Transitional Care Management CC: Nery is a 62 year old male following 3, days after the Hospital/Shelter Discharge HPI: Admitted for eval. for diarrhea with hematachezia. He has been on ASA 81mg qday based on FHx of ASHD-- Pt has not had chest pain or documented ASHD Reports indicate that he had upper and lower endoscopy during the hospitalization and that no source of bleeding was found, though he does have hemorrhoids and did have some upper GI tract erosions thought to be associated with acid reflux. The patient states he does not have pain sensation in his abdomen or GI tract so he is not aware of heartburn or abdominal pain. 2. Blood pressure at the hospital and at home are variable but usually too high. He denies that he ever gets low readings. No lightheadedness. 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 simvastatin (ZOCOR) 20 mg tablet Take 20 mg by mouth daily at bedtime. DULoxetine (CYMBALTA) 30 mg capsule Take 1 capsule by mouth once daily. lisinopril (ZESTRIL, PRINIVIL) 20 mg tablet Take 1 tablet by mouth once daily. mometasone (ELOCON) 0.1 % cream Apply 1 application to affected area once daily. COMPOUNDED PRESCRIPTION Power wheelchairDx multiple sclerosis with severe lower extremity weakness carvedilol (COREG) 12.5 mg tablet Take 1 tablet by mouth twice daily. apixaban (ELIQUIS) 5 mg tab tab(s) Take 1 tablet by mouth twice daily. carvedilol (COREG) 12.5 mg tablet Take 1 tablet by mouth twice daily. COMPOUNDED PRESCRIPTION Inflatable Emergency Lift Chair aspirin, enteric coated (ADULT LOW DOSE ASPIRIN) 81 mg EC tablet Take 1 tablet by mouth once daily. Cholecalciferol, Vitamin D3, 1,000 unit cap Take 1 capsule by mouth once daily. lisdexamfetamine (VYVANSE) 50 mg capsule Take 1 capsule by mouth once daily. bethanechol (URECHOLINE) 10 mg tablet Take 1 tablet by mouth three times daily. meclizine (ANTIVERT) 25 mg Tab Take 1 tablet by mouth three times daily. tiZANidine (ZANAFLEX) 4 mg tablet Take 1 tablet by mouth every 8 hours as needed (muscle spasms). DAILY MULTIVITAMIN TAB Take one(1) tablet daily. VITAMIN E 1,000 UNIT CAP Take one(1) tablet daily. apixaban (ELIQUIS) 5 mg tab tab(s) Take 1 tablet by mouth twice daily. (Patient not taking: Reported on 06/04/2018 ) No current facility-administered medications for this visit. SOCIAL HISTORY: Social History Substance Use Topics - Smoking status: Never Smoker - Smokeless tobacco: Never Used - Alcohol use No FAMILY HISTORY: FAMILY HISTORY Problem Relation Age of Onset - Cancer Mother LUNG - Heart Father - Coronary Artery Disease Father - Hypertension Mother - Hypertension Father REVIEW OF SYSTEMS: PAIN ASSESSMENT: Negative for pain, history of chronic pain, or current treatment for a chronic pain condition. GENERAL: No weight loss, malaise or fevers RESPIRATORY: Negative for cough, hemoptysis, wheezing, COPD, dyspnea or shortness of breath CARDIOVASCULAR: Negative for chest pain, leg swelling, hypertension, CHF or palpitations GI: No nausea, vomiting, or diarrhea All other reviewed and negative other than HPI. PHYSICAL EXAMINATION BP 120/89 Pulse 81 Resp 18 General appearance: Sitting in a motorized wheelchair, well appearing, alert, in no acute distress, well-hydrated, well nourished Neck: Supple, no adenopathy; thyroid symmetric, normal size, no bruits Back: Lungs: clear to auscultation, no wheezing or rhonchi Heart: RRR without murmur, gallop, or rubs. No ectopy Abdomen: Abdomen soft, non-tender. Bowel sounds normal. No masses, organomegaly Imp: Gastric/esophageal erosions due to aspirin and GERD GI hemorrhage secondary to #1 Chronic anticoagulation Paroxysmal atrial fibrillation on Eliquis Multiple sclerosis?stable Hypertension?variable Plan: discontinue aspirin increase lisinopril 40mg daily--follow bp same other medications follow up with cardiology as appointed. return to office 6 mos and as needed Melinda Duckworth III MD June 04, 2018 10:45 AM Melinda Duckworth III MD 06/04/2018 11:11 AM Signed Plan: discontinue aspirin increase lisinopril 40mg daily--follow bp same other medications follow up with cardiology as appointed. return to office 6 mos and as needed Melinda Duckworth III MD Referring Provider: SELF [[id number]] Allergies As of Date: 06/04/2018 (No Known Allergies) Date Reviewed: 06/04/2018 Reviewed by: Chanel ([facility]) LUIS ANTONIO Baez - Fully Assessed Reason for Visit: TCM [Other] Cmt: [facility]-possible lower GI bleed Primary Visit Diagnosis:Hospital discharge follow-up [Z09] Other Visit Diagnoses:Chronic atrial fibrillation (HCC) [I48.2] Multiple sclerosis (HCC) [G35] History of pulmonary embolus (PE) [Z86.711] Lower gastrointestinal hemorrhage [K92.2] Essential hypertension, benign [I10] Order(s):DULoxetine (CYMBALTA) 30 mg capsuleTake 1 capsule by mouth once daily.Disp: 90 capsuleRfl: 3 lisinopril (ZESTRIL, PRINIVIL) 40 mg tabletTake 1 tablet by mouth once daily.Disp: 90 tabletRfl: 3 Prescriptions as of 06/04/2018 Sig: PANTOPRAZOLE 40 MG TABLET,DEL* Take 40 mg by mouth once king* SIMVASTATIN 20 MG TABLET Take 20 mg by mouth daily at * MOMETASONE 0.1 % TOPICAL CREAM Apply 1 application to affect* COMPOUNDED PRESCRIPTION Power wheelchair Dx multip* CARVEDILOL 12.5 MG TABLET Take 1 tablet by mouth twice * APIXABAN 5 MG TABLET Take 1 tablet by mouth twice * CARVEDILOL 12.5 MG TABLET Take 1 tablet by mouth twice * COMPOUNDED PRESCRIPTION Inflatable Emergency Lift Bel* CHOLECALCIFEROL (VITAMIN D3) * Take 1 capsule by mouth once * LISDEXAMFETAMINE 50 MG CAPSULE Take 1 capsule by mouth once * BETHANECHOL CHLORIDE 10 MG TA* Take 1 tablet by mouth three * MECLIZINE 25 MG TABLET Take 1 tablet by mouth three * TIZANIDINE 4 MG TABLET Take 1 tablet by mouth every * DAILY MULTIVITAMIN TABLET Take one(1) tablet daily. VITAMIN E 1,000 UNIT CAPSULE Take one(1) tablet daily. DULOXETINE 30 MG CAPSULE,MERLE* Take 1 capsule by mouth once * LISINOPRIL 40 MG TABLET Take 1 tablet by mouth once d* APIXABAN 5 MG TABLET Take 1 tablet by mouth twice * Patient not taking: Reported on 06/04/2018 Problem List As Of Date 06/04/2018 Noted Resolved BENIGN HYPERTENSION [I10] MULTIPLE SCLEROSIS [G35] Depression [F32.9] INVALID FOR* Neurogenic bladder [N31.9] INVALID FOR* Recurrent UTI [N39.0] INVALID FOR* Chronic atrial fibrillation (HCC) [I48.2] INVALID FOR* More... History of pulmonary embolus (PE) [Z86.711] INVALID FOR* More... 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 posterior wall of urinary*INVALID FOR* More... Other instructions from your clinician: Plan: discontinue aspirin increase lisinopril 40mg daily--follow bp same other medications follow up with cardiology as appointed. return to office 6 mos and as needed Melinda Duckworth III MD Prescriptions ordered this encounter Disp Refills Start End DULOXETINE 30 MG CAPSULE,DELAYED REL* 90 c* 3 06/04/2018 Class: Med Update Route: ORAL Sig: Take 1 capsule by mouth once daily. LISINOPRIL 40 MG TABLET 90 t* 3 06/04/2018 Route: ORAL Sig: Take 1 tablet by mouth once daily. Medications Discontinued During This Encounter DULoxetine (CYMBALTA) 30 mg capsule 90 c* 3 02/23/2018 06/04/2018 Route: ORAL Sig: Take 1 capsule by mouth once daily. Disc: Discontinued by Patient lisinopril (ZESTRIL, PRINIVIL) 20 mg* 90 t* 3 02/12/2018 06/04/2018 Class: Med Update Route: ORAL Sig: Take 1 tablet by mouth once daily. Disc: Dosage adjustment aspirin, enteric coated (ADULT LOW D* 0 07/20/2014 06/04/2018 Class: Historical Med Route: ORAL Sig: Take 1 tablet by mouth once daily. Disc: Clinical Decision Encounter Status:Closed by MELINDA DUCKWORTH III, MD on 06/04/18 PROGRESS Observed: 06/04/2018 Status: COMPLETED Source: [place] 10:09 AM [facility] REPOSITORY HNO ID: [id number] Author: Chanel Baez MA Service: (none) Author Type: Strategy Director Type: Progress Notes Filed: 06/04/2018 12:20 PM Note Text: TRANSITION CARE MANAGEMENT (TCM) INITIAL CONTACT Strategy Director Outreach ? Provider Action/FYI: [facility]-admitted on for lower GI Bleed, d/c 06/01/2018 ? ? Initial contact with patient post discharge, spoke to patient. Patient identified by name and . ? SUMMARY: -Pt discharged from [facility] on 06/01/2018 . -Admitted for: Lower GI Bleed ? Do you have a hospital follow up appointment with your PCP? Appointment on 06/04/[address] Duckworth. Yes. Remind patient of appointment date, time, and location. If not within 14 calendar days of discharge - please reschedule accordingly. ? MEDICATIONS: Many patients have questions or concerns about their medications once they are home. Were you prescribed any new medications? If yes, what are those medications? Pantoprazole ? Were you told to hold any medications? No Were any of your medications discontinued? No ? Do you have any questions about getting or taking your medications? No ? Your discharge instructions/After visit Summary (AVS) are important in guiding you through the recovery process. Is there anything I might help you understand? No ? Do you have all the necessary equipment and supplies at home? Yes ? Medical records from recent hospitalization: Placed for provider to review PROGRESS Observed: 06/02/2018 Status: COMPLETED Source: [place] 12:23 PM [facility] REPOSITORY HNO ID: [id number] Author: Chanel Baez MA Service: (none) Author Type: Strategy Director Type: Progress Notes Filed: 06/02/2018 12:25 PM Note Text: TRANSITION CARE MANAGEMENT (TCM) INITIAL CONTACT Strategy Director Outreach Provider Action/FYI: [facility]-admitted on for lower GI Bleed, d/c 06/01/2018 Initial contact with patient post discharge, spoke to patient. Patient identified by name and . SUMMARY: -Pt discharged from [facility] on 06/01/2018 . -Admitted for: Lower GI Bleed Do you have a hospital follow up appointment with your PCP? Appointment on 06/04/[address] Duckworth. Yes. Remind patient of appointment date, time, and location. If not within 14 calendar days of discharge - please reschedule accordingly. MEDICATIONS: Many patients have questions or concerns about their medications once they are home. Were you prescribed any new medications? If yes, what are those medications? Pantoprazole Were you told to hold any medications? No Were any of your medications discontinued? No Do you have any questions about getting or taking your medications? No Your discharge instructions/After visit Summary (AVS) are important in guiding you through the recovery process. Is there anything I might help you understand? No Do you have all the necessary equipment and supplies at home? Yes Medical records from recent hospitalization: Placed for provider to review CHAPARRO Observed: 06/02/2018 Status: COMPLETED Source: [place] 12:00 AM [facility] REPOSITORY Patient Outreach (FAMPWS) DHAVAL MIDDLETONGHAriana Rivero ([id number]) 1955 M Date Time Provider Department 06/02/18 CHANEL BAEZ CMAWS During your visit today, we recorded the following information about you: Chanel Baez CMA, [place] 06/02/2018 12:25 PM Signed TRANSITION CARE MANAGEMENT (TCM) INITIAL CONTACT Strategy Director Outreach Provider Action/FYI: [facility]-admitted on for lower GI Bleed, d/c 06/01/2018 Initial contact with patient post discharge, spoke to patient. Patient identified by name and . SUMMARY: -Pt discharged from [facility] on 06/01/2018 . -Admitted for: Lower GI Bleed Do you have a hospital follow up appointment with your PCP? Appointment on 06/04/[address] Duckworth. Yes. Remind patient of appointment date, time, and location. If not within 14 calendar days of discharge - please reschedule accordingly. MEDICATIONS: Many patients have questions or concerns about their medications once they are home. Were you prescribed any new medications? If yes, what are those medications? Pantoprazole Were you told to hold any medications? No Were any of your medications discontinued? No Do you have any questions about getting or taking your medications? No Your discharge instructions/After visit Summary (AVS) are important in guiding you through the recovery process. Is there anything I might help you understand? No Do you have all the necessary equipment and supplies at home? Yes Medical records from recent hospitalization: Placed for provider to review Allergies As of Date: 06/02/2018 (No Known Allergies) Date Reviewed: 02/12/2018 Reviewed by: Chanel ([facility]) LUIS ANTONIO Baez - Fully Assessed Reason for Visit: Transition Of Care [4074] Prescriptions as of 06/02/2018 Sig: DULOXETINE 30 MG CAPSULE,MERLE* Take 1 capsule by mouth once * LISINOPRIL 20 MG TABLET Take 1 tablet by mouth once d* MOMETASONE 0.1 % TOPICAL CREAM Apply 1 application to affect* COMPOUNDED PRESCRIPTION Power wheelchair Dx multip* CARVEDILOL 12.5 MG TABLET Take 1 tablet by mouth twice * APIXABAN 5 MG TABLET Take 1 tablet by mouth twice * CARVEDILOL 12.5 MG TABLET Take 1 tablet by mouth twice * APIXABAN 5 MG TABLET Take 1 tablet by mouth twice * COMPOUNDED PRESCRIPTION Inflatable Emergency Lift Bel* ASPIRIN 81 MG TABLET,DELAYED * Take 1 tablet by mouth once d* CHOLECALCIFEROL (VITAMIN D3) * Take 1 capsule by mouth once * LISDEXAMFETAMINE 50 MG CAPSULE Take 1 capsule by mouth once * BETHANECHOL CHLORIDE 10 MG TA* Take 1 tablet by mouth three * MECLIZINE 25 MG TABLET Take 1 tablet by mouth three * TIZANIDINE 4 MG TABLET Take 1 tablet by mouth every * DAILY MULTIVITAMIN TABLET Take one(1) tablet daily. VITAMIN E 1,000 UNIT CAPSULE Take one(1) tablet daily. Problem List As Of Date 06/02/2018 Noted Resolved BENIGN HYPERTENSION [I10] MULTIPLE SCLEROSIS [G35] Depression [F32.9] INVALID FOR* Neurogenic bladder [N31.9] INVALID FOR* Recurrent UTI [N39.0] INVALID FOR* Chronic atrial fibrillation (HCC) [I48.2] INVALID FOR* More... History of pulmonary embolus (PE) [Z86.711] INVALID FOR* More... 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 posterior wall of urinary*INVALID FOR* More... Encounter Status:Closed by CHANEL BAEZ CMA on 06/02/18 12 LEAD ELECTROCARDIOGRAM Observed: 06/01/2018 Status: F Source: [place] 2:39 PM [facility] REPOSITORY [facility] Cardiovascular Services [address] [place] [address] 12 Lead EKG 05/28/18 1304 MR#: [id number] Acct: [id number] Name: NERY MIDDLETON Rep #: [id number] : 1955 62 From: Kashmir Escudero MD Attending Dr: Jessica Robison MD Status: DIS IN Ordering Dr: Tian Santoyo MD Date: 05/28/18 Location: [facility] Sex: M C Admitted: 05/28/18 Test Reason : Blood Pressure : / mmHG Vent. Rate : 083 BPM Atrial Rate : 083 BPM P-R Int : 158 ms QRS Dur : 090 ms QT Int : 378 ms P-R-T Axes : 019 -50 014 degrees QTc Int : 444 ms Normal sinus rhythm Left anterior fascicular block Abnormal ECG Confirmed by CHARMAINE WINCHESTER, KASHMIR ([id number]), film and video editor SHANTI PARKS ([id number]) on 06/01/2018 2:38:55 PM Referred By: NATANAEL Confirmed By:KASHMIR ESCUDERO MD 06/01/18 1438 Date Kashmir Escudero MD CC: TIAN SANTOYO MD; Melinda Duckworth III, MD; Jessica Robison MD Signed DISCHARGE SUMMARY Observed: 06/01/2018 Status: F Source: [place] 2:16 PM [facility] REPOSITORY [facility] Medical Records Department [address] [place] [address] Discharge Summary 06/01/18 1134 MR#: [id number] Acct: [id number] Name: NERY MIDDLETON Rep #: [id number] : 1955 62 From: Shaneka Garcia [employer] PCP: Melinda Duckworth III, MD Status: DIS IN Y Location: [facility] [id number] <Shaneka Garcia - Last Filed: 06/01/18 11:44> Discharge Date and Diagnosis Date of Admission: 05/28/18 Date of Discharge: 06/01/18 - Primary Discharge Diagnosis Active and Suspected Problems (Last Reviewed 02/27/18 @ 08:45 by ANNELISE Joseph) 1. Lower GI bleed secondary to mild gastritis/esophagitis complicated by chronic anticoagulation with Eliquis 2. Acute kidney injury-resolved. 3. Gastroenteritis-resolved. - Secondary Discharge Diagnosis Chronic Problems (Last Reviewed 02/27/18 @ 08:45 by ANNELISE Joseph) Abnormal EKG (Chronic) Obstructive sleep apnea (Chronic) Paroxysmal atrial fibrillation (Chronic) Atrial septal defect (Chronic) Multiple sclerosis (Chronic) Pulmonary embolism (Chronic) Hypertension (Chronic) Hospital Course and Treatment Dr. Duckworth- General Surgery Operations: None Procedures: Colonoscopy, EGD Summary of Care Provided: Patient is a 62-year-old male admitted 05/28/2018 due to blood per rectum. He has a past medical history of MS, paroxysmal atrial fibrillation, obstructive sleep apnea, history of bladder cancer, history of pulmonary embolism, depression, hyperlipidemia. 1. Lower GI bleed secondary to mild gastritis/esophagitis complicated by chronic anticoagulation with Eliquis-hemoglobin has remained within normal limits during admission. Patient did not require blood transfusion. Patient underwent EGD/colonoscopy due to diarrhea with occult blood positive stool. EGD colonoscopy demonstrated small hiatal hernia, mild antral gastritis, mild proximal esophagitis, lax elongated colon, no active bleeding. Biopsies taken. Patient will be notified by Dr. Duckworth's office when results become available. Patient will be discharged on Protonix 40 mg twice daily. He will continue Eliquis regimen at discharge. Patient will follow up with primary care physician in 1 week. Can follow-up with Dr. Duckworth as needed. Plan for routine colonoscopy in 10 years. 2. Acute kidney injury-resolved. Secondary to dehydration and GI bleed. 3. Gastroenteritis-resolved. Stool studies negative. 4. Paroxysmal atrial fibrillation-continue Eliquis, Coreg. 5. Multiple sclerosis with associated debility-chronic left- sided hemiparesis. 6. History of pulmonary embolism-continue Eliquis at discharge. 7. Depression-continue Cymbalta. 8. Hyperlipidemia-continue statin. 9. Hypertension-continue home lisinopril, carvedilol regimen. General: Alert, Oriented x3, Cooperative, No apparent distress HEENT: Atraumatic, PERRLA, EOMI, Normocephalic Oral: Moist Mucosa Neck: Supple, No JVD, Negative Carotid Bruits Lungs: Clear to auscultation, Normal air movement Cardiovascular: Regular rate, Regular Rhythm, Normal S1, Normal S2, No murmurs Abdomen: Bowel Sounds Present, Soft, Non Tender, Non-Distended Extremities: No clubbing, No cyanosis, No edema, Capillary Refill Less than 3 Seconds Skin: No rashes, No breakdown Musculoskeletal: No Tenderness to Palpation of Joints or Extremities Neurological: Cranial nerves II-XII grossly intact, Neuro grossly intact, - - Chronic left-sided hemiplegia secondary to MS. Psych/Mental Status: Normal Affect, Appropriate Patient seen exam prior to discharge. Physical assessment as noted above. Patient is stable for discharge home with the follow-up recommendations as noted above. This patient was seen by ANNELISE Estes under the supervision of Dr. Robison. Discharge Diet: No Restrictions Discharge Activity: Return to Normal Activity Call your doctor if you observe: Shortness of breath, Dizziness, Fainting spells, Chest pain Home Medications: Medications to take at Discharge Lisdexamfetamine Dimesylate [Vyvanse] 50 mg PO DAILY cap 08/29/17 Vitamin E (Dl,Tocopheryl Acet) [Vitamin E] 400 units PO DAILY 09/14/17 meclizine 25 mg tablet 25 mg PO PRN PRN 11/04/17 ocrelizumab 30 mg/mL intravenous solution 600 mg IV .COMPLEX 11/04/17 tizanidine 4 mg capsule 4 mg PO Q8H PRN 11/04/17 lisinopril 20 mg tablet 20 mg PO DAILY 02/25/18 albuterol sulfate 2.5 mg/3 mL (0.083 %) solution for nebulization 2.5 mg INHALATION Q4H PRN #180 vial 03/04/18 Simvastatin 20 mg PO QHS 04/17/18 Apixaban [Eliquis] 5 mg PO BID 05/28/18 Aspirin E.C. [Ecotrin] 81 mg PO DAILY 05/28/18 Carvedilol [Coreg (Beta Eugene)] 12.5 mg PO BID 05/28/18 Cholecalciferol (VIT D3) [Vitamin D3] 5,000 unit PO DAILY 05/28/18 Duloxetine Hcl [Cymbalta] 30 mg PO DAILY 05/28/18 Multivitamins,Therapeutic [Multivitamin] 1 tablet PO DAILY 05/28/18 Pantoprazole Sodium [Protonix] 40 mg PO BID #60 tab 06/01/18 Following Prescrptions Were Given to Patient: Pantoprazole Sodium [Protonix] 40 mg PO BID #60 tab Primary Care Physician: Melinda Duckworth III, MD [Primary Care Provider] - Please follow up with your Primary Care Physician in: 1 Week Please Follow Up With: Uzair Duckworth MD When: As needed. Office will call with [employer] results. Disposition: Home Minutes spent on discharge:: 35 Patient Condition:: Stable Medical Necessity - Tobacco Use Smoking Status: Never smoker Tobacco Use: Non-smoker Meaningful Use Info Meaningful Use Diagnoses (Choose all that apply): None applicable <Jessica Robison - Last Filed: 06/01/18 14:15> Discharge Date and Diagnosis - Secondary Discharge Diagnosis Chronic Problems (Last Reviewed 02/27/18 @ 08:45 by ANNELISE Joseph) Abnormal EKG (Chronic) Obstructive sleep apnea (Chronic) Paroxysmal atrial fibrillation (Chronic) Atrial septal defect (Chronic) Multiple sclerosis (Chronic) Pulmonary embolism (Chronic) Hypertension (Chronic) Hospital Course and Treatment Summary of Care Provided: Patient seen by Shaneka nicole under my supervision. I agree with above noted assessment. The patient is a 62 year old medical with a complaint of lower GI bleed. Scheduled to have EGD and colonoscopy today findings of which were as documented in Ms. Garcia's note, with mild antral gastritis, mild proximal esophagitis and no active bleeding. Biopsies taken. He has a follow-up with Dr. Galvez in 10 years for repeat colonoscopy. Seen examined this morning. Complaints this morning and felt very well. He denied any fever or chills, any cough or chest pain, any abdominal pain or vomiting. He has not had any lower GI bleed again overnight. General: Alert, Oriented x3, Cooperative, No apparent distress HEENT: Atraumatic, PERRLA, EOMI, Normocephalic Oral: Moist Mucosa Neck: Supple, No JVD, Negative Carotid Bruits Lungs: Clear to auscultation, Normal air movement Cardiovascular: Regular rate, Regular Rhythm, Normal S1, Normal S2, No murmurs Abdomen: Bowel Sounds Present, Soft, Non Tender, Non-Distended Extremities: No clubbing, No cyanosis, No edema, Capillary Refill Less than 3 Seconds Skin: No rashes, No breakdown Musculoskeletal: No Tenderness to Palpation of Joints or Extremities Neurological: Cranial nerves II-XII grossly intact, chronic left sided weakness o./a of MS [] Plan is to discharge patient home. To follow-up with PCP in 1 week. Follow-up with Dr. Jannette oneill For repeat colonoscopy in 10 years. Code Visit Inpatient E AND M: 80288 Disch Hosp 06/01/18 1144 <Electronically signed by Shaneka CASTELAN> Date Shaneka CASTELAN 06/01/18 1416<Electronically signed by Jessica Robison MD> Cosigner Signature (if applicable): Date Jessica Robison MD CC: ANNELISE Garcia; Melinda Duckworth III, MD; Jessica Robison MD Signed DISCHARGE INSTRUCTION Observed: 06/01/2018 Status: F Source: [place] 11:34 AM [facility] REPOSITORY [facility] Medical Records Department [address] [place] [address] Instructions for Home/Discharge Instructions 06/01/18 1132 MR#: [id number] Acct: [id number] Name: NERY MIDDLETON Rep #: [id number] : 1955 62 From: Shaneka CASTELAN PCP: Melinda Duckworth III, MD Status: ADM IN - Discharge Diagnoses Current Active Problems: Current Active and Chronic Problems (Last Reviewed 02/27/18 @ 08:45 by ANNELISE Joseph) GI bleeding (Acute) Anticoagulated (Acute) You will use the following diet at home:: No restrictions Discharge Activity: Return to Normal Activity Call your doctor if you observe: Shortness of breath, Dizziness, Fainting spells, Chest pain Allergies/Adverse Reactions: Allergies No Known Allergies Allergy (Verified 02/25/18 09:45) Medications to take at Discharge Lisdexamfetamine Dimesylate [Vyvanse] 50 mg PO DAILY cap 08/29/17 Vitamin E (Dl,Tocopheryl Acet) [Vitamin E] 400 units PO DAILY 09/14/17 meclizine 25 mg tablet 25 mg PO PRN PRN 11/04/17 ocrelizumab 30 mg/mL intravenous solution 600 mg IV .COMPLEX 11/04/17 tizanidine 4 mg capsule 4 mg PO Q8H PRN 11/04/17 lisinopril 20 mg tablet 20 mg PO DAILY 02/25/18 albuterol sulfate 2.5 mg/3 mL (0.083 %) solution for nebulization 2.5 mg INHALATION Q4H PRN #180 vial 03/04/18 Simvastatin 20 mg PO QHS 04/17/18 Apixaban [Eliquis] 5 mg PO BID 05/28/18 Aspirin E.C. [Ecotrin] 81 mg PO DAILY 05/28/18 Carvedilol [Coreg (Beta Eugene)] 12.5 mg PO BID 05/28/18 Cholecalciferol (VIT D3) [Vitamin D3] 5,000 unit PO DAILY 05/28/18 Duloxetine Hcl [Cymbalta] 30 mg PO DAILY 05/28/18 Multivitamins,Therapeutic [Multivitamin] 1 tablet PO DAILY 05/28/18 Pantoprazole Sodium [Protonix] 40 mg PO BID #60 tab 06/01/18 The following prescriptions were given: Pantoprazole Sodium [Protonix] 40 mg PO BID #60 tab Primary Care Physician: Melinda Duckworth III, MD [Primary Care Provider] - Please follow up with your Primary Care Physician in: 1 Week Test Results: Test results from this visit will be discussed in further detail at your follow-up appointment, if applicable. Please Follow Up With: Uzair Duckworth MD When: As needed. Office will call with biospy results. Proposed Discharge Date: 06/01/18 06/01/18 1134 <Electronically signed by Shaneka CASTELAN> Date Shaneka CASTELAN CC: Melinda Duckworth III, MD; Uzair Duckworth MD BASIC METABOLIC Collected: 06/01/2018 Status: F Source: [place] PROFILE (BMP) 5:10 AM [facility] REPOSITORY TYPE CODE TESTS RESULT OUT OF RANGE REFERENCE UNITS LAB L501.0100 74-106 mg/dL Normal GLU 92 Result Comment: Please note revised GLUCOSE reference range effective 2017. LAB L501.1000 7-18 mg/dL Low BUN 6 LAB L501.1100 0.70-1.30 mg/dL Normal CREAT,SERUM 1.05 Result Comment: The validity of the calculated GFR AND GFRAA in patients over 70 years has not been determined. Clinical correlation is essential. LAB L501.1110 >60 mL/min Normal EST GFR 76 Result Comment: Non- GFR Calc LAB L501.1115 >60 mL/min Normal EST GFR - AA 92 Result Comment: GFR Calc LAB L501.1255 ml/min Normal Estimated CRCL 96.72 LAB L501.1300 10-20 RATIO Low BUN/CRE 5.7 LAB L501.2200 8.5-10 mg/dL Normal .1 CA 8.8 LAB L501.5300 136-14 mmol/L Normal 5 NA 143 LAB L501.5600 3.5-5. mmol/L Normal 1 K 3.6 LAB L501.5900 98-107 mmol/L High CL 112 LAB L501.6100 21.0-3 mmol/L Normal 2.0 CO2 23.0 LAB L501.6200 5-15 Normal GAP 8 Performed By: #### L500.2500 #### [facility] [address] [place], [address] CBC-COMPLETE BLOOD CNT Collected: 06/01/2018 Status: F Source: [place] NO DIFF 5:10 AM [facility] REPOSITORY TYPE CODE TESTS RESULT OUT OF RANGE REFERENCE UNITS LAB L100.1000 4.4-11.0 K/mm3 Normal WBC 4.8 LAB L100.1200 4.6-6.2 M/mm3 Normal RBC 4.73 LAB L100.1300 13.0-16.5 g/dl Normal HGB 13.9 LAB L100.1400 40-54 % Normal HCT 40.2 LAB L100.1500 80-94 fL Normal MCV 85.0 LAB L100.1600 27.0-32.0 pg Normal MCH 29.4 LAB L100.1700 32-36 g/gl Normal MCHC 34.6 LAB L100.1810 11.6-14.6 % Normal RDW CV 12.6 LAB L100.1820 35.1-43.9 fl Normal RDW SD 38.7 LAB L100.1900 150-450 K/mm3 Normal PLT 198 LAB L100.2000 6.2-12.0 fl Normal MPV 9.8 Performed By: #### L100.0500 #### [facility] [address] [place], [address] IMMUNOHISTOCHEMISTRY Observed: 06/01/2018 Status: F Source: [place] 12:00 AM [facility] REPOSITORY Patient: NERY MIDDLETON : 1955 (62/M) Acct Num: [id number] Phys: Jessica Robison MD Unit Num: [id number] Loc: PCU [id number] Specimen: [id number] Received: 06/03/181303 Spec Type: IMMUNO TISSUES TISSUES: A. Stomach, NOS SPECIMEN INFORMATION: Tissue Source: A Antral biopsy Clinical Info: GI bleed Specimen Number: [id number] CPT code: 96639 METHODOLOGY: Deparaffinized sections of prefer/formalin-fixed tissue or PAP/DQ stained slides are incubated with monoclonal/polyclonal antibodies/oligonucleotide probes. Localization is made via biotin free immunoperoxidase method. Appropriate controls are performed and reacted as expected. Results on target cell population are indicated in the following table: RESULTS: ANTIBODY / CLONE RESULT Block A H Pylori (polyclonal) negative These tests were developed and their performance characteristics determined by [facility]. They may not have been cleared or approved by the U.S. Food and Drug Administration. The FDA has determined that such clearance or approval is not necessary. INTERPRETATION: A. Antral biopsy: Negative for Helicobacter pylori organisms. SJ:tiffanie 06/03/18 PHYSICIAN AND INSTITUTION [facility] [address] [place], [place] [address] Signed Jeovanny Yomi 06/03/18 <signature on file> Performed By: #### PIMM #### [facility] [address] [place], [place] [address]. [place], [address] EGD ([facility]) Observed: 06/01/2018 Status: F Source: [place] 12:00 AM [facility] REPOSITORY Patient: NERY MIDDLETON : 1955 (62/M) Acct Num: [id number] Phys: Jessica Robison MD Unit Num: [id number] Loc: [facility] [id number] Specimen: [id number] Received: 06/01/18 - 1523 Spec Type: EGD BIOPSY TISSUES TISSUES: A. Gastric mucous membrane B. Esophageal mucous membrane C. Esophageal mucous membrane COMMENT A. The results of immunohistochemistry for Helicobacter pylori will be reported separately ([id number]). C. Alcian blue/PAS stain with matched control is used in the evaluation of the specimen. Also, please note that specimen B AND C might have switched. This is discussed with Dr. Duckworth by Nevin Palmer on 06/04/18. Case has been reviewed in consultation with Dr. Sibley who concurs with the above diagnosis. IDC:AM GROSS DESCRIPTION A - Received in fixative is one container labeled with the patient's name and designated antral biopsy. The specimen consists of one irregular fragment of light goodrich soft tissue that measures 0.5 x 0.3 x 0.1 cm. The specimen is totally submitted in one cassette. B - Received in fixative is one container labeled with the patient's name and designated distal esophagus biopsy. The specimen consists of one irregular fragment of light goodrich soft tissue that measures 0.2 x 0.2 x 0.1 cm. The specimen is totally submitted in one cassette. C - Received in fixative is one container labeled with the patient's name and designated proximal esophagus biopsy. The specimen consists of multiple irregular fragments of light goodrich soft tissue that in aggregate measure 0.6 x 0.3 x 0.1 cm. The specimen is totally submitted in one cassette. / AM:tiffanie 06/02/18 TC:3 CPT: 08253 x3, 80955 HEADER OPERATION: Colonoscopy, EGD PRE-OP DIAGNOSIS: GI bleed TISSUE SUBMITTED: A. Antral biopsy, B. Distal esophageal biopsy, C. Proximal esophageal biopsy MICROSCOPIC DESCRIPTION Slides are reviewed. A. The specimen shows fragments of gastric mucosa with chronic inflammatory cell infiltrates in the lamina propria consisting of lymphocytes and plasma cells, consistent with mild chronic gastritis. MICROSCOPIC DIAGNOSIS A. Antral biopsy: Mild gastritis. See microscopic description and comment. B. Distal esophagus, biopsy: Fragment of squamous epithelium with minimal changes consistent with gastroesophageal reflux disease. C. Proximal esophagus, biopsy: Fragments of gastroesophageal mucosa with chronic inflammation. Intestinal metaplasia (goblet cell metaplasia) is not identified. See comment. SJ:tiffanie 06/03/18 Signed Jeovanny Celaya 06/04/18 <signature on file> Performed By: #### PEGD #### [facility] [address] [place], [place], [address] CBC-COMPLETE BLOOD CNT Collected: 05/31/2018 Status: F Source: LIDA NO DIFF 6:08 AM [facility] REPOSITORY TYPE CODE TESTS RESULT OUT OF RANGE REFERENCE UNITS LAB L100.1000 4.4-11.0 K/mm3 Normal WBC 5.1 LAB L100.1200 4.6-6.2 M/mm3 Normal RBC 4.98 LAB L100.1300 13.0-16.5 g/dl Normal HGB 14.2 LAB L100.1400 40-54 % Normal HCT 43.2 LAB L100.1500 80-94 fL Normal MCV 86.7 LAB L100.1600 27.0-32.0 pg Normal MCH 28.5 LAB L100.1700 32-36 g/gl Normal MCHC 32.9 LAB L100.1810 11.6-14.6 % Normal RDW CV 12.9 LAB L100.1820 35.1-43.9 fl Normal RDW SD 41.2 LAB L100.1900 150-450 K/mm3 Normal PLT 189 LAB L100.2000 6.2-12.0 fl Normal MPV 9.7 Performed By: #### L100.0500 #### [facility] [address] [place], [place], [address] BASIC METABOLIC Collected: 05/31/2018 Status: F Source: [place] PROFILE (BMP) 6:08 AM [facility] REPOSITORY TYPE CODE TESTS RESULT OUT OF RANGE REFERENCE UNITS LAB L501.0100 74-106 mg/dL Normal GLU 88 Result Comment: Please note revised GLUCOSE reference range effective 2017. LAB L501.1000 7-18 mg/dL Normal BUN 9 LAB L501.1100 0.70-1.30 mg/dL Normal CREAT,SERUM 0.95 Result Comment: The validity of the calculated GFR AND GFRAA in patients over 70 years has not been determined. Clinical correlation is essential. LAB L501.1110 >60 mL/min Normal EST GFR 85 Result Comment: Non- GFR Calc LAB L501.1115 >60 mL/min Normal EST GFR - AA 103 Result Comment: GFR Calc LAB L501.1255 ml/min Normal Estimated CRCL 106.90 LAB L501.1300 10-20 RATIO Low BUN/CRE 9.4 LAB L501.2200 8.5-10 mg/dL .1 CA Normal 8.6 LAB L501.5300 136-14 mmol/L 5 NA Normal 145 LAB L501.5600 3.5-5. mmol/L 1 K Normal 3.8 LAB L501.5900 98-107 mmol/L High CL 114 LAB L501.6100 21.0-3 mmol/L 2.0 CO2 Normal 24.0 LAB L501.6200 5-15 GAP Normal 7 Performed By: #### L500.2500 #### [facility] [address] [facility] [place], [address] CBC W/DIFF, AUTOMATED Collected: 05/30/2018 Status: F Source: LIDA 5:56 AM [facility] REPOSITORY TYPE CODE TESTS RESULT OUT OF RANGE REFERENCE UNITS LAB L100.1000 4.4-11.0 K/mm3 Normal WBC 5.8 LAB L100.1200 4.6-6.2 M/mm3 Normal RBC 4.76 LAB L100.1300 13.0-16.5 g/dl Normal HGB 13.8 LAB L100.1400 40-54 % Normal HCT 41.7 LAB L100.1500 80-94 fL Normal MCV 87.6 LAB L100.1600 27.0-32.0 pg Normal MCH 29.0 LAB L100.1700 32-36 g/gl Normal MCHC 33.1 LAB L100.1810 11.6-14.6 % Normal RDW CV 13.1 LAB L100.1820 35.1-43.9 fl Normal RDW SD 41.4 LAB L100.1900 150-450 K/mm3 Normal PLT 207 LAB L100.2000 6.2-12.0 fl Normal MPV 10.1 LAB L100.2100 47-70 % Normal NEUT% 56.7 LAB L100.2200 19-41 % Normal LY% 20.0 LAB L100.2300 0-10 % High MONO% 16.2 LAB L100.2400 0-5 % High EO% 5.9 LAB L100.2500 0-1 % Normal BASO% 0.3 LAB L100.2550 0.0-0.9 % Normal IM GRAN % 0.900 Result Comment: IG% - Immature Granulocytes (promyelocytes, myelocytes and metamyelocytes) > 1% indicates that a LEFT SHIFT is Present. LAB L100.2620 2.0-7.7 X10 3/uL Normal Absolute Neut 3.3 LAB L100.2720 0.83-4.51 X10 3/ul Normal Absolute Lymph 1.16 Performed By: #### L100.0100 #### [facility] [address] [place], [place], [address] BASIC METABOLIC Collected: 05/30/2018 Status: F Source: [place] PROFILE ([facility]) 5:56 AM [facility] REPOSITORY TYPE CODE TESTS RESULT OUT OF RANGE REFERENCE UNITS LAB L501.0100 74-106 mg/dL High GLU 110 Result Comment: Fasting Glucose result from 100 to 125 mg/dL suggests IMPAIRED HOMEOSTASIS per A.D.A. criteria. Please note revised GLUCOSE reference range effective 2017. LAB L501.1000 7-18 mg/dL Normal BUN 16 LAB L501.1100 0.70-1.30 mg/dL Normal CREAT,SERUM 1.21 Result Comment: The validity of the calculated GFR AND GFRAA in patients over 70 years has not been determined. Clinical correlation is essential. LAB L501.1110 >60 mL/min Normal EST GFR 65 Result Comment: Non- GFR Calc LAB L501.1115 >60 mL/min Normal EST GFR - AA 78 Result Comment: GFR Calc LAB L501.1255 ml/min Normal Estimated CRCL 83.93 LAB L501.1300 10-20 RATIO Normal BUN/CRE 13.2 LAB L501.2200 8.5-10 mg/dL Low .1 CA 8.2 LAB L501.5300 136-14 mmol/L Normal 5 NA 142 LAB L501.5600 3.5-5. mmol/L Normal 1 K 4.1 LAB L501.5900 98-107 mmol/L High CL 110 LAB L501.6100 21.0-3 mmol/L Normal 2.0 CO2 26.0 LAB L501.6200 5-15 Normal GAP 6 Performed By: #### L500.2500 #### [facility] [address] [facility] [place], [address] CONSULTATION Observed: 05/30/2018 Status: F Source: [place] 5:41 AM [facility] REPOSITORY [facility] Medical Records Department [address] [place] [address] Consultation 05/28/18 1823 MR#: [id number] Acct: [id number] Name: NERY MIDDLETON Rep #: [id number] : 1955 62 From: Uzair Duckworth MD PCP: Melinda Duckworth III, MD Status: ADM IN Y Location: [place] [address] Problem List (1) GI bleeding Status: Acute Qualifiers: GI bleed type/associated pathology: unspecified gastrointestinal hemorrhage type Qualified Code(s): K92.2 - Gastrointestinal hemorrhage, unspecified Reason for Consult Date of Consultation: 05/28/18 History of Present Illness: The patient is a 62 year old M who I am being asked to see with a tentative diagnosis of GI bleeding. Been requested to see him by hospitalist Dr. Stern and a written copy of my surgical consult recommendations will be returned to him.. Patient is a 8-year-old gentleman. He completed a course of antibiotic 1 week ago for urinary tract infection. He initiated as having severe diarrhea. As the diarrhea progressed there was suggestion of more brick red maroon type appearance. The patient has been on Eliquis treatment for acute saddle pulmonary embolus and he has been maintained on 81 mg aspirin therapy. He has multiple sclerosis and no longer walks. It is of note however that his white blood cell count is 9.3 and his hemoglobin 17 and hematocrit is 51.8 and platelet count is 234,000 with 63% neutrophils. BUN is 20 and creatinine 1.44 . Liver function tests are normal. Unfortunately the patient cannot sense his abdomen. He has had multiple kidney stones with no discomfort. He denies abdominal pain but that is not reliable. He has no previous history of peptic ulcer disease. It is of note that January 18, 2016 I performed a colonoscopy for him. That was performed for screening. There were no acute findings at that time other than some mild internal hemorrhoids. No diverticulosis was commented upon. It is of note that January 25, [address] scan of the abdomen. Also too that did not comment about diverticulosis. The patient recently has had several falls. He no longer has true utilization of his lower extremities. 's medical problems include paroxysmal atrial fibrillation and pulmonary embolization with onset of Eliquis for anticoagulation and continuation of his low-dose aspirin therapy. He denies additional oral medication like NSAIDs or ulcerogenic medication. He has not had any nausea or vomiting Past Medical History Past Medical History (Chronic Problems): Chronic Problems (Last Reviewed 02/27/18 @ 08:45 by ANNELISE Joseph) Abnormal EKG (Chronic) Obstructive sleep apnea (Chronic) Paroxysmal atrial fibrillation (Chronic) Atrial septal defect (Chronic) Multiple sclerosis (Chronic) Pulmonary embolism (Chronic) Hypertension (Chronic) Medical History: Medical History (Last Reviewed 02/27/18 @ 08:45 by ANNELISE Joseph) Abnormal EKG (Chronic) R94.31 Obstructive sleep apnea (Chronic) G47.33 Paroxysmal atrial fibrillation (Chronic) I48.0 Atrial septal defect (Chronic) Q21.1 Multiple sclerosis (Chronic) G35 Bladder cancer (Resolved) Pulmonary embolism (Chronic) I26.99 Hypertension (Chronic) I10 Kidney stones N20.0 Atrial fibrillation with RVR (Resolved) I48.91 Allergies No Known Allergies Allergy (Verified 02/25/18 09:45) Home Medications: Ambulatory Orders Medication Instructions Recorded Lisdexamfetamine Dimesylate 50 mg PO DAILY cap 08/29/17 [Vyvanse] Vitamin E (Dl,Tocopheryl Acet) 400 units PO DAILY 09/14/17 Surgical History: Surgical History (Last Reviewed 02/27/18 @ 08:45 by ANNELISE Joseph) S/P vasectomy Z98.52 ureteroscopy Surgical History: - - colonoscopy. Lives: Spouse/ Significant Other Smoking Status: Never smoker Tobacco Use: Non-smoker Alcohol: None Drugs: None - *Family History Paternal Family History: Family History (Last Reviewed 02/27/18 @ 08:45 by ANNELISE Joseph) Father CAD (coronary artery disease) Hypertension Mother Hypertension History Items: Hypertension Sibling Family History: Family History (Last Reviewed 02/27/18 @ 08:45 by ANNELISE Joseph) Father CAD (coronary artery disease) Hypertension Mother Hypertension History Items: - - Sister with history of MS and due to a pulmonary embolism Maternal Family History: Family History (Last Reviewed 02/27/18 @ 08:45 by ANNELISE Joseph) Father CAD (coronary artery disease) Hypertension Mother Hypertension History Items: No pertinent history Review of Systems Constitutional: Denies: Anorexia Eyes: Denies: Blurred vision HEENT: Denies: Difficulty Hearing Cardiovascular: Denies: Chest Pain Respiratory: Denies: Cough Gastrointestinal: Denies: Abdominal Pain Genitourinary: Denies: Dysuria Skin: Reports: Wounds, - - Multiple areas of excoriation bilateral calves. Denies: Jaundice Neurological: Reports: Balance problems Psychiatric: Denies: Anxiety Patient Problems: Active and Suspected Problems (Last Reviewed 02/27/18 @ 08:45 by ANNELISE Joseph) GI bleeding (Acute) Anticoagulated (Acute) - Physical Exam General: Alert, Oriented x3, Cooperative, No apparent distress HEENT: Atraumatic Oral: Moist Mucosa Neck: Supple, No JVD Lungs: Clear to auscultation Cardiovascular: Regular rate Abdomen: Bowel Sounds Present, Soft, Non Tender, Non-Distended, - - Rectal exam demonstrates some mild to moderate internal hemorrhoids. No tenderness but the patient is a sensate. No masses. Stool is medium brown. Extremities: No Calf Tenderness Neurological: - - A sensate from the abdomen distally Psych/Mental Status: Normal Affect Vital Signs Temp Pulse Resp BP Pulse Ox 98.5 F 79 15 131/79 H 92 05/28/18 18:20 05/28/18 18:20 05/28/18 18:20 05/28/18 18:20 05/28/18 18:20 Oxygen Delivery Method Room Air Laboratory Tests Past 24 Hrs Hgb Pending Hct Pending PT Pending INR Pending Assessment/Plan All Active Problems (Last Reviewed 02/27/18 @ 08:45 by ANNELISE Joseph) GI bleeding (Acute) Anticoagulated (Acute) Bladder cancer (Resolved) Atrial fibrillation with RVR (Resolved) The patient does not appear to be in an acute surgical emergency. His stool is medium brown. Although it may be Hemoccult positive he currently does not appear to have a significant GI bleed. He is anticoagulated both on aspirin and on Eliquis. This would appear to be a medical bleed. His symptoms do not highly suggest an upper GI source. He has had a reasonably recent colonoscopy which did not demonstrate polyp or mass or diverticular disease. His digital rectal exam although demonstrating hemorrhoids does not suggest bright red blood. At this point I do not believe that he requires emergency surgical intervention. He is anticoagulation should be held. This clearly will place him at increased risk for recurrent deep venous thrombosis and pulmonary embolism. A decision will need to be made as to whether he might be a candidate for a inferior vena cava filter. That however would likely end up being a permanent filter because of his multiple sclerosis and progressive lower extremity disuse. Family members are aware of the increased risk of vena cava filter placement particularly if it is to be presumed to be permanent. I will hold the patient n.p.o. after midnight. This will allow for medical evaluation of the patient in the morning. I do not believe that urgent endoscopy is required at this moment. The etiology to the patient's diarrhea apparently is not determined. Despite the normal white blood cell count I recommended C. difficile because of the diffuseness of the diarrhea and the recent history of antibiotic therapy. This may simply be a diarrhea related mucosal irritation and sloughing causing the bleeding and otherwise anticoagulate patient. Appreciate the opportunity of assisting with surgical care and will follow with you. Uzair Duckworth M.D., F.A.C.S. 05/30/18 0541 <Electronically signed by Uzair Duckworth MD> Date Uzair Duckworth MD Cosigner Signature (if applicable): Date CC: Melinda Duckworth III, MD; Uzair Duckworth MD Signed HEMOGLOBIN Collected: 05/29/2018 Status: F Source: LIDA 5:47 PM [facility] REPOSITORY TYPE CODE TESTS RESULT OUT OF RANGE REFERENCE UNITS LAB L100.1300 13.0-16.5 g/dl Normal HGB 15.5 Performed By: #### L100.1300, L100.1400 #### [facility] [address] [place], [place], [id number] HEMATOCRIT Collected: 05/29/2018 Status: F Source: LIDA 5:47 PM [facility] REPOSITORY TYPE CODE TESTS RESULT OUT OF RANGE REFERENCE UNITS LAB L100.1400 40-54 % Normal HCT 47.6 Performed By: #### L100.1300, L100.1400 #### [facility] [address] [place], [place], [id number] CBC W/DIFF, AUTOMATED Collected: 05/29/2018 Status: F Source: LIDA 5:30 AM [facility] REPOSITORY TYPE CODE TESTS RESULT OUT OF RANGE REFERENCE UNITS LAB L100.1000 4.4-11.0 K/mm3 Normal WBC 6.8 LAB L100.1200 4.6-6.2 M/mm3 Normal RBC 5.46 LAB L100.1300 13.0-16.5 g/dl Normal HGB 15.8 LAB L100.1400 40-54 % Normal HCT 48.1 LAB L100.1500 80-94 fL Normal MCV 88.1 LAB L100.1600 27.0-32.0 pg Normal MCH 28.9 LAB L100.1700 32-36 g/gl Normal MCHC 32.8 LAB L100.1810 11.6-14.6 % Normal RDW CV 13.5 LAB L100.1820 35.1-43.9 fl Normal RDW SD 43.9 LAB L100.1900 150-450 K/mm3 Normal PLT 192 LAB L100.2000 6.2-12.0 fl Normal MPV 10.0 LAB L100.2100 47-70 % Normal NEUT% 59.4 LAB L100.2200 19-41 % Normal LY% 20.8 LAB L100.2300 0-10 % High MONO% 14.8 LAB L100.2400 0-5 % Normal EO% 4.4 LAB L100.2500 0-1 % Normal BASO% 0.3 LAB L100.2550 0.0-0.9 % Normal IM GRAN % 0.300 Result Comment: IG% - Immature Granulocytes (promyelocytes, myelocytes and metamyelocytes) > 1% indicates that a LEFT SHIFT is Present. LAB L100.2620 2.0-7.7 X10 3/uL Normal Absolute Neut 4.1 LAB L100.2720 0.83-4.51 X10 3/ul Normal Absolute Lymph 1.42 Performed By: #### L100.0100 #### [facility] [address] [place], [address] BASIC METABOLIC Collected: 05/29/2018 Status: F Source: [place] PROFILE ([facility]) 5:30 AM [facility] REPOSITORY TYPE CODE TESTS RESULT OUT OF RANGE REFERENCE UNITS LAB L501.0100 74-106 mg/dL Normal GLU 84 Result Comment: Please note revised GLUCOSE reference range effective 2017. LAB L501.1000 7-18 mg/dL High BUN 19 LAB L501.1100 0.70-1.30 mg/dL Normal CREAT,SERUM 1.17 Result Comment: The validity of the calculated GFR AND GFRAA in patients over 70 years has not been determined. Clinical correlation is essential. LAB L501.1110 >60 mL/min Normal EST GFR 67 Result Comment: Non- GFR Calc LAB L501.1115 >60 mL/min Normal EST GFR - AA 82 Result Comment: GFR Calc LAB L501.1255 ml/min Normal Estimated CRCL 86.80 LAB L501.1300 10-20 RATIO Normal BUN/CRE 16.2 LAB L501.2200 8.5-10 mg/dL Normal .1 CA 8.6 LAB L501.5300 136-14 mmol/L Normal 5 NA 143 LAB L501.5600 3.5-5. mmol/L Normal 1 K 3.9 LAB L501.5900 98-107 mmol/L High CL 112 LAB L501.6100 21.0-3 mmol/L Normal 2.0 CO2 23.0 LAB L501.6200 5-15 Normal GAP 8 Performed By: #### L500.2500 #### [facility] [address] [place], [place], [address] HH, HEMOGLOBIN AND Collected: 05/28/2018 Status: F Source: LIDA HEMATOCRIT 6:11 PM [facility] REPOSITORY Order Comment: Comments: Every 8 hours 3. TYPE CODE TESTS RESULT OUT OF RANGE REFERENCE UNITS LAB L100.1300 13.0-16.5 g/dl High HGB 16.9 LAB L100.1400 40-54 % Normal HCT 50.1 Performed By: #### L100.0600 #### [facility] [address] [place], [place], [address] PROTHROMBIN TIME W/INR Collected: 05/28/2018 Status: F Source: LIDA 6:11 PM [facility] REPOSITORY TYPE CODE TESTS RESULT OUT OF RANGE REFERENCE UNITS LAB L300.4150 11.7-14.9 SECONDS High PROTIME 15.9 LAB L300.4200 Normal INR 1.3 Performed By: #### L300.3900 #### [facility] [address] [place], [place], [address] Observed: 05/28/2018 Status: F Source: LIDA CDIFF (MOLECULAR) 6:10 PM [facility] REPOSITORY Is the patient receiving laxatives? N New/unexplained onset of 3 or more stools in past 24 hrs? Y Cdiff-Molecular Normal Reference Range = Negative C. Diff DNA Negative- No toxigenic C. Diff DNA Detected NAAT METHOD Testing was performed using nucleic acid amplification Performed By: #### M100.6796 #### [facility] [address] [place], [address] Observed: 05/28/2018 Status: F Source: [place]IS ENTERIC PATHOGEN 6:10 PM [facility] PANEL STOOL REPOSITORY EP PANEL STOOL Not detected for Campylobacter group, Salmonella species, Shigella species, Vibrio Group, Yersinia enterocolitica, EHEC (Shiga Toxin 1, Shiga Toxin 2), Norovirus Gl/Gll, and Rotavirus A. Other common stool pathogens are not detected on this panel include: Aeromonas/Plesiomonas or parasites. Order testing for these organisms separately if suspected. This is an amplified DNA test which makes it both specific and sensitive. Normal Reference Range = Not Detected CAMPYLOBACTER Not Detected Salmonella Not Detected Shigella sp. Not Detected Shiga Toxin Not Detected Yersinia Not Detected VIBRIO Not Detected Norovirus Not Detected Rotavirus Not Detected Performed By: #### M100.637 #### [facility] [address] [place], [address] HISTORY AND PHYSICAL Observed: 05/28/2018 Status: F Source: MORRIS EXAM 5:27 PM [facility]PITAL REPOSITORY [facility] Medical Records Department [address] [place] [id number] History and Physical 05/28/18 1716 MR#: [id number] Acct: [id number] Name: NERY MIDDLETON Rep #: [id number] : 1955 62 From: Chavez Stern MD PCP: Melinda Duckworth III, MD Status: ADM IN Location: [place] [address] Problem List (1) GI bleeding Status: Acute (2) Obstructive sleep apnea Status: Chronic (3) Paroxysmal atrial fibrillation Status: Chronic (4) Atrial septal defect Status: Chronic (5) Multiple sclerosis Status: Chronic (6) Bladder cancer Status: Resolved (7) Pulmonary embolism Status: Chronic Qualifiers: Pulmonary embolism type: saddle Chronicity: acute Acute cor pulmonale presence: with acute cor pulmonale Qualified Code(s): I26.02 - Saddle embolus of pulmonary artery with acute cor pulmonale (8) Hypertension Status: Chronic Qualifiers: History of Present Illness Date of Admission: 05/28/18 Chief Complaint: Bleeding per rectum. The patient is a 62 year old M with past medical history as mentioned above presented to the emergency room because of bleeding per rectum. According to his , symptoms started last night with diarrhea initially, loose stool and air this morning, she noticed that the stools determined to be bright red, described as brick colored stool, moderate amount and has been getting worse since injury this morning. She mentioned that he had about up to 20 episodes of diarrhea and since he looks more, it is mixed with blood. He denied abdominal pain, nausea vomiting. Denied epistaxis, hemoptysis, hematemesis, or hematuria. He denied chest pain or shortness of breath. He denied dizziness or lightheadedness. He has a history of PE as well as paroxysmal A. fib and he has been on Eliquis for anti-coagulation. He has a history of multiple sclerosis with chronic left-sided hemiparesis and he has been bedridden for a long time. He has a history of paroxysmal atrial fibrillation, has been on Coreg for rate control and Eliquis for anticoagulation. During his , he had history of UTI a week ago and he has been on antibiotics that was completed. In the emergency department, his vital signs are stable. His routine blood work is remarkable for BUN of 20, creatinine of 1.44, otherwise normal. His LFT was unremarkable. EKG revealed normal sinus rhythm without evidence of acute ischemic changes. He is being admitted for GI bleed and acute kidney injury. Past Medical History Past Medical History (Chronic Problems): Chronic Problems (Last Reviewed 02/27/18 @ 08:45 by ANNELISE Joseph) Abnormal EKG (Chronic) Obstructive sleep apnea (Chronic) Paroxysmal atrial fibrillation (Chronic) Atrial septal defect (Chronic) Multiple sclerosis (Chronic) Pulmonary embolism (Chronic) Hypertension (Chronic) Medical History: Medical History (Last Reviewed 02/27/18 @ 08:45 by ANNELISE Joseph) Abnormal EKG (Chronic) R94.31 Obstructive sleep apnea (Chronic) G47.33 Paroxysmal atrial fibrillation (Chronic) I48.0 Atrial septal defect (Chronic) Q21.1 Multiple sclerosis (Chronic) G35 Bladder cancer (Resolved) Pulmonary embolism (Chronic) I26.99 Hypertension (Chronic) I10 Kidney stones N20.0 Atrial fibrillation with RVR (Resolved) I48.91 Allergies No Known Allergies Allergy (Verified 02/25/18 09:45) Home Medications: Ambulatory Orders Medication Instructions Recorded Lisdexamfetamine Dimesylate 50 mg PO DAILY cap 08/29/17 [Vyvanse] Vitamin E (Dl,Tocopheryl Acet) 400 units PO DAILY 09/14/17 Surgical History: Surgical History (Last Reviewed 02/27/18 @ 08:45 by ANNELISE Joseph) S/P vasectomy Z98.52 ureteroscopy Surgical History: - - colonoscopy. Lives: Spouse/ Significant Other Smoking Status: Never smoker Tobacco Use: Non-smoker Alcohol: None Drugs: None - *Family History Paternal Family History: Family History (Last Reviewed 02/27/18 @ 08:45 by ANNELISE Joseph) Father CAD (coronary artery disease) Hypertension Mother Hypertension History Items: Hypertension Sibling Family History: Family History (Last Reviewed 02/27/18 @ 08:45 by ANNELISE Joseph) Father CAD (coronary artery disease) Hypertension Mother Hypertension History Items: - - Sister with history of MS and due to a pulmonary embolism Maternal Family History: Family History (Last Reviewed 02/27/18 @ 08:45 by ANNELISE Joseph) Father CAD (coronary artery disease) Hypertension Mother Hypertension History Items: No pertinent history Review of Systems Constitutional: Denies: Anorexia, Chills, Fever, Weakness Eyes: Denies: Blurred vision, Double vision, Drainage, Redness HEENT: Denies: Difficulty Hearing, Ear Pain, Eye Pain, Nasal bleeding, Post Nasal Drip, Sore Throat Cardiovascular: Denies: Chest Pain, Chest Pressure, Chest Tightness, Heaviness, Light Headedness, Palpitations, Syncope Respiratory: Denies: Cough, Pleuritic Pain, Shortness of Breath, Sputum production, Wheezing Gastrointestinal: Reports: Diarrhea, Hematochezia. Denies: Abdominal Pain, Constipation, Hematemesis, Nausea, Melena, Vomiting Genitourinary: Denies: Dysuria, Frequency, Hematuria Musculoskeletal: Denies: Arm Pain, Back Pain, Foot Pain Skin: Denies: Dryness, Rash Neurological: Denies: Balance problems, Change in Speech, Slurred speech, Confusion, Headaches, Incoordination, Numbness Psychiatric: Reports: Depression. Denies: Anxiety Endocrine: Denies: Change in Body Habitus, Polydipsia VTE Information - Inpt Only VTE Present on Admission: No VTE Mechan Device Prophylaxis: SCD's VTE Pharm Prophylaxis ordered?: No Patient Problems: Active and Suspected Problems (Last Reviewed 02/27/18 @ 08:45 by Sita Cyr NP-[place]) GI bleeding (Acute) Anticoagulated (Acute) - Physical Exam General: Alert, Oriented x3, Cooperative, No apparent distress HEENT: Atraumatic, PERRLA, EOMI, Normocephalic Oral: Moist Mucosa, No Gingival or Mucosal Lesions/ Ulcerations Neck: Supple, No JVD, Negative Carotid Bruits, Trachea Midline, Thyroid Normal Size and Texture Lungs: Clear to auscultation, No rhonchi, No wheeze, No rales, Diminished Cardiovascular: Regular rate, Regular Rhythm, Normal S1, Normal S2, PMI Normal Abdomen: Bowel Sounds Present, Soft, Non Tender, Non-Distended, No Hepato-splenomegaly Extremities: No clubbing, No cyanosis, No edema Skin: No rashes, No breakdown Lymphatic: No Cervical, Supraclavicular, or Inguinal Adenopathy Neurological: Cranial nerves II-XII grossly intact, - - Left side hemiparesis. Psych/Mental Status: Normal Affect, Appropriate, Alert and oriented to time, place, person, mood and affect Vital Signs Temp Pulse Resp BP Pulse Ox 98.4 F 88 20 H 125/90 H 92 05/28/18 10:56 05/28/18 17:07 05/28/18 17:07 05/28/18 17:07 05/28/18 17:07 Oxygen Delivery Method Room Air Weight: 240 lb Body Mass Index (BMI) 27.7 Laboratory Tests Past 24 Hrs Assessment/Plan All Active Problems (Last Reviewed 02/27/18 @ 08:45 by Sita Cyr NP-C) GI bleeding (Acute) Anticoagulated (Acute) Bladder cancer (Resolved) Atrial fibrillation with RVR (Resolved) This is a 62 years old male patient presented to the emergency room because of bleeding per rectum, found to have acute kidney injury and he is being admitted for evaluation. #1 GI bleed: Likely lower GI bleed. He had colonoscopy back in 2016 that revealed internal hemorrhoids. Patient has been on antibiotics for UTI recently. Symptoms started with diarrhea and then he started having rectal bleeding. At this time, vital signs are stable. Hemoglobin is 17.0 g/dL. Plan: Admit to PCU, cardiac monitoring, keep on clear liquids, H AND H every 8 hours, IV fluids, pro time and INR, repeat CBC and BMP tomorrow morning, general surgery consult, transfuse if hemoglobin less than 8 g/dL, stool for C. difficile, stool for enteric pathogens, PT OT evaluation and treatment. #2 acute kidney injury: Secondary to dehydration and GI bleed. Vital signs are stable. Baseline kidney function is normal. Admission creatinine is 1.44. Plan for IV fluids, input output chart, repeat BMP tomorrow morning. #3 paroxysmal atrial fibrillation: Heart rate stable, blood pressure stable. Continue Coreg for rate control, hold Eliquis. #4 hypertension: Blood pressure stable, continue Coreg and lisinopril. #5 multiple sclerosis: With residual left-sided hemiparesis. Plan for PT OT, supportive treatment. #6 history of pulmonary embolism: Hold Eliquis, pro time and INR. #7 DVT prophylaxis: SCDs. This note was generated with [employer] dictation software. It may contain incorrect words, spelling, and punctuation that were not noted in checking the note before signing. Code Visit Inpatient E AND M: 77013 Init Hosp L3 05/28/18 1727 <Electronically signed by Chavez Stern MD> Date Chavez Stern MD Cosigner Signature: Date (if applicable) CC: Melinda Duckworth III, MD; Chavez Stern Signed EMERGENCY DEPARTMENT Observed: 05/28/2018 Status: F Source: MORRIS SUMMARY 5:06 PM [facility] REPOSITORY [facility] Medical Records Department [address] [place] [address] Emergency Department Summary 05/28/18 1254 MR#: [id number] Acct: [id number] Name: LYUBOV MIDDLETONAriana Rivero Rep #: [id number] : 1955 62 From: Tian Santoyo MD PCP: Melinda Duckworth III, MD Status: REG ER ADDENDUM by TIAN SANTOYO MD on 05/28/18 at 1706 Family prefers to stick with Dr. Duckworth rather than the on- call surgeon, so I discussed with both physicians, Dr. Duckworth will see him. Date Tian Santoyo MD cc: Melinda Duckworth III, MD * Signed ADDENDUM by TIAN SANTOYO MD on 05/28/18 at 1634 Monitor: NSR 85, no ectopy EKG: NSR 83, LAFB, no acute injury pattern, normal intervals. Date Tian Santoyo MD cc: Melinda Duckworth III, MD * Signed History of Present Illness Chief Complaint: GI Bleed Informant: Patient, Family Onset: Yesterday Context: Gradual Onset Timing: Intermittent - 15-20 episodes Quality: Red blood, somewhat maroon-orange Location: Rectal Current Severity: Moderate Maximum Severity: Moderate Worsened by: Nothing Relieved by: Nothing Associated Symptoms: no abd pain. no n/v. malaise and a little lightheaded. no presyncope/syncop Narrative: On Eliquis for PE last july. Prior similar symptoms: No - Past Medical History (1) Atrial septal defect Status: Chronic (2) Hypertension Status: Chronic (3) Multiple sclerosis Status: Chronic (4) Obstructive sleep apnea Status: Chronic (5) Paroxysmal atrial fibrillation Status: Chronic (6) Pulmonary embolism Status: Chronic (7) Bladder cancer Status: Resolved Past Medical History - Allergies and Home Meds Allergies/Adverse Reactions: Allergies No Known Allergies Allergy (Verified 02/25/18 09:45) Primary Care Physician: Melinda Duckworth III, MD [Primary Care Provider] - Surgical History: - - colonoscopy last week Lives: Spouse/ Significant Other Smoking Status: Never smoker - Family History Paternal Family History: Family History (Last Reviewed 02/27/18 @ 08:45 by ANNELISE Joseph) Father CAD (coronary artery disease) Hypertension Mother Hypertension Family History: Reports: Hypertension Sibling Family History: Family History (Last Reviewed 02/27/18 @ 08:45 by ANNELISE Joseph) Father CAD (coronary artery disease) Hypertension Mother Hypertension Family History: Reports: - - Sister with history of MS and due to a pulmonary embolism Maternal Family History: Family History (Last Reviewed 02/27/18 @ 08:45 by ANNELISE Joseph) Father CAD (coronary artery disease) Hypertension Mother Hypertension Family History: Reports: No pertinent history Review of Systems All systems negative except as indicated General: Reports: Malaise, - - a little lightheaded Gastrointestinal: Reports: Hematochezia. Denies: Abdominal pain, Nausea, Vomiting, Melena Neurological: Reports: Parasthesia - on left side, chronic Physical Exam Vital Signs/Narrative: Vital Signs 05/28/18 12:35 79 19 H 125/97 H 91 05/28/18 10:56 98.4 F 79 16 119/85 H 96 General: Well nourished, Well developed Head: Normocephalic, Atraumatic Eyes: Perrl, EOMI ENT: Moist mucous membranes, No rhinorrhea Neck: Supple, Nontender Cardiovascular: Regular rate, Regular rhythm, No murmurs Respiratory: No distress, CTA bilaterally, Chest nontender Abdomen: Soft, Nontender, Nondistended, Hyperactive bowel sounds Rectal: Nontender Back: Nontender, Normal Inspection Extremities: Nontender, No edema Skin: Normal color, No rash Neurological: Alert, Oriented x3, Cranial nerves II-XII grossly intact, Normal Strength Psychological: Normal affect Diagnostic/Tx/Re-eval Laboratory Results - Medical Decision Making Patient remained clinically and hemodynamically stable. Rectal exam shows dark red blood without pooling or melena. No active bleeding at this time. Labs show an elevated BUN but only 20, his hemoglobin is 17, stable. I am mostly concerned about the fact that he is anticoagulated on Eliquis. His last colonoscopy was 2 years ago and showed no diverticulosis, just internal and external hemorrhoids but otherwise normal. I suspect this is a lower GI bleed, however not able to rule out the possibility of an upper. No nausea or vomiting or abdominal discomfort and his exam is very benign. Discussed with Dr. Redman since we have no automatic machines supervisor available here, she is comfortable consulting and having him admitted here. Discussed with Dr. Stern, requests PCU. ED Disposition - Plan for ED Patient: Disposition: Acute Care Hospital [facility] Chief Complaint: GI Bleed Diagnosis: GI bleeding, Anticoagulated What to do if you have Problems For any increased pain, shortness of breath, bleeding, nausea or vomiting, chest pain, or any unexpected problems, contact your Primary Care Provider. Call [facility] ([phone]) or report to the closest Emergency Room. Call 911 if necessary. 05/28/18 1633 <Electronically signed by Tian Santoyo MD> Date Tian Santoyo MD Cosigner Signature (If Indicated): Date CC: Melinda Duckworth III, MD CBC W/DIFF, AUTOMATED Collected: 05/28/2018 Status: F Source: LIDA 11:10 AM [facility] REPOSITORY TYPE CODE TESTS RESULT OUT OF RANGE REFERENCE UNITS LAB L100.1000 4.4-11.0 K/mm3 Normal WBC 9.3 LAB L100.1200 4.6-6.2 M/mm3 Normal RBC 5.94 LAB L100.1300 13.0-16.5 g/dl High HGB 17.0 LAB L100.1400 40-54 % Normal HCT 51.8 LAB L100.1500 80-94 fL Normal MCV 87.2 LAB L100.1600 27.0-32.0 pg Normal MCH 28.6 LAB L100.1700 32-36 g/gl Normal MCHC 32.8 LAB L100.1810 11.6-14.6 % Normal RDW CV 13.6 LAB L100.1820 35.1-43.9 fl Normal RDW SD 43.3 LAB L100.1900 150-450 K/mm3 Normal PLT 234 LAB L100.2000 6.2-12.0 fl Normal MPV 10.8 LAB L100.2100 47-70 % Normal NEUT% 63.2 LAB L100.2200 19-41 % Low LY% 18.6 LAB L100.2300 0-10 % High MONO% 15.6 LAB L100.2400 0-5 % Normal EO% 2.0 LAB L100.2500 0-1 % Normal BASO% 0.3 LAB L100.2550 0.0-0.9 % Normal IM GRAN % 0.300 Result Comment: IG% - Immature Granulocytes (promyelocytes, myelocytes and metamyelocytes) > 1% indicates that a LEFT SHIFT is Present. LAB L100.2620 2.0-7.7 X10 3/uL Normal Absolute Neut 5.9 LAB L100.2720 0.83-4.51 X10 3/ul Normal Absolute Lymph 1.73 Performed By: #### L100.0100 #### [facility] [address] [place], [address] COMPREHENSIVE METABOLIC Collected: 05/28/2018 Status: F Source: [facility] 11:10 AM [facility] REPOSITORY TYPE CODE TESTS RESULT OUT OF RANGE REFERENCE UNITS LAB L501.0100 74-106 mg/dL Normal GLU 78 Result Comment: Please note revised GLUCOSE reference range effective 2017. LAB L501.1000 7-18 mg/dL High BUN 20 LAB L501.1100 0.70-1.30 mg/dL High CREAT,SERUM 1.44 Result Comment: The validity of the calculated GFR AND GFRAA in patients over 70 years has not been determined. Clinical correlation is essential. LAB L501.1110 >60 mL/min Low EST GFR 53 Result Comment: Non- GFR Calc LAB L501.1115 >60 mL/min Normal EST GFR - AA 64 Result Comment: GFR Calc LAB L501.1255 ml/min Normal Estimated CRCL 70.52 LAB L501.1300 10-20 RATIO Normal BUN/CRE 13.9 LAB L501.1500 6.4-8. g/dL Normal 2 T PROT 7.3 LAB L501.1800 3.2-5. g/dL Normal 0 ALB 3.3 LAB L501.1950 2.2-4. g/dL Normal 2 GLOB 4.0 LAB L501.2000 0.9-2. RATIO Low 4 A/G 0.8 LAB L501.2200 8.5-10 mg/dL Normal .1 CA 9.2 LAB L501.4100 15-37 U/L Normal AST 16 LAB L501.4305 45-117 U/L Normal ALK P 109 LAB L501.4405 16-61 U/L Normal ALT 19 LAB L501.4600 0.20-1 mg/dL Normal .00 T BILI 0.70 LAB L501.5300 136-14 mmol/L Normal 5 NA 144 LAB L501.5600 3.5-5. mmol/L Normal 1 K 4.3 LAB L501.5900 98-107 mmol/L High CL 108 LAB L501.6100 21.0-3 mmol/L Normal 2.0 CO2 27.0 LAB L501.6200 5-15 Normal GAP 9 Performed By: #### L500.4050 #### [facility] [address] [place], [address] TYPE AND SCREEN Collected: 05/28/2018 Status: F Source: [place] 11:10 AM [facility] REPOSITORY Order Comment: Reason for Type AND Screen/Red Cells: HEMORRHAGE, GI BLEED TYPE CODE TESTS RESULT OUT OF RANGE REFERENCE UNITS LAB B10.0800 O Normal BLOOD TYPE GEL POSITIVE LAB B100.4000 Normal Antibody NEGATIVE Screen Performed By: #### B101.7450 #### [facility] [address] [place], [address] Observed: 05/06/2018 Status: F Source: [place] CULTURE, URINE 11:45 AM [facility] REPOSITORY Urine Culture ORGANISM 1: Staphylococcus simulans [place] Count >100,000 Staphylococcus simulans: REACTION Benzylpenicillin NF >=0.5 R Cefoxitin *NF - Inducable Clindamycin [place] - Gentamicin $ <=0.5 S Levofloxacin $ >=8 R Nitrofurantoin $ <=16 S Oxacillin NF <=0.25 S Rifampin $$ <=0.5 S Tetracycline NF <=1 S Vancomycin $ <=0.5 S (NF) indicates non-formulary drug at [facility]. Approval by Infectious Disease Specialist required before non-formulary drugs may be ordered and/or dispensed. * CLSI guidelines does not recommend testing of cephalosporins. This interpretation is deduced from Beta-lactam/penicillin results. Performed By: #### M100.0650 #### [facility] [address] [place], [address] PULMONARY VISIT REPORT Observed: 03/03/2018 Status: F Source: [place] 3:06 PM [facility] REPOSITORY [facility] [address] [place] [address] OFFICE VISIT Date of Service: 02/25/18 MR#: [id number] Acct: [id number] Name: NERY MIDDLETON Rep #: [id number] : 1955 Provider: Sita Cyr Age/Sex: 62/M Location: [email or web address] Status: Signed with Addenda ADDENDUM by Sita Cyr on 03/03/18 at 1506 Addendum entered and electronically signed by ANNELISE Joseph 03/03/18 15:06: As documented in previous office visits, this patient has a history of chronic bronchitis requiring pulmonary toileting. I do believe that he would benefit from having bronchodilators delivered by nebulizer, to loosen his secretions and increased his ability to expectorate them. 03/03/18 1506 <Electronically signed by Sita CASTELAN> Date Sita Cyr cc: Melinda Duckworth III, MD * Signed Assessment AND Plan 1. JOSH (obstructive sleep apnea) G47.33 Plan Appears to be more of complex sleep apnea versus straightforward obstructive sleep apnea. Will plan to defer the management of his sleep apnea to the neurologist he already has established care with. He has an appointment coming up next week. We will send sleep studies and office notes with the family. Follow-up with Dr. Ni in 6 months. Plan Detail Follow Up 6 Months ([facility]) HPI 1 M FU: Chief Complaint: daytime fatigue HPI Comments Details: Patient is ok with a student. Feeling a little better than his last visit. Wears his BiPAP, he takes it off around 4 am. No leak. Occasional REDDY. PCP is adjusting BP meds, 146/97 today. starting to feel a little better sees neurology 03/06/18 This is a 62 year old very pleasant m, currently under the care of Dr. Melinda Duckworth iii [facility], here to follow up for sleep apnea. Current use of pressure support therapy is on average of 7 hours per night with current settings of 21/17 cmH2O. NERY denies any dry mouth in the morning, nocturia, snoring through the mask, morning headaches or difficulty with mask leaks, but is reporting some mild daytime somnolence. He has noticed an improvement in feeling rested in the morning.NERY reports feeling more rested in the morning and is benefitting from current therapy. Compliance report was reviewed and shows 100% compliance. Current AHI remains elevated at 9.5 events per hour, noted that there are average of 6 central events per hour and only 2.9 obstructive events per hour. Leaks do not appear to be consistent issue. He has not been seen in the ED urgent care for any breathing problems since his last office visit. He has not required any antibiotics or prednisone respiratory illnesses. He denies any shortness of breath on exertion, during conversation or at rest. Denies any cough, wheezing, chest tightness or palpitations. He denies any hemoptysis, hematemesis, hematochezia or melena stools. He denies any fever, chills or body aches. See complete review of systems. Intake Vital Signs02/25/18 Height 6 ft 6 in 02/25/18 Weight: 240 lb Intake Visit Reasons: 1 M FU Allergies No Known Allergies Allergy (Verified 02/25/18 09:45) Medications Aspirin 81 mg PO DAILY 08/11/17 [History Confirmed 02/25/18] Cholecalciferol (VIT D3) [Vitamin D3] 5,000 unit PO DAILY tab 08/29/17 [Rx Confirmed 02/25/18] Lisdexamfetamine Dimesylate [Vyvanse] 50 mg PO DAILY cap 08/29/17 [Rx Confirmed 02/25/18] Multivitamins,Therapeutic [Multivitamin] 1 tab PO DAILY@0800 tab 08/29/17 [Rx Confirmed 02/25/18] Acetaminophen 500 mg PO Q8H PRN PRN 09/14/17 [History Confirmed 02/25/18] Sennosides/Docusate Sodium [Senna-Docusate Sodium Tablet] 2 ea PO BID PRN PRN 09/14/17 [History Confirmed 02/25/18] Vitamin E (Dl,Tocopheryl Acet) [Vitamin E] 400 units PO DAILY 09/14/17 [History Confirmed 02/25/18] Bisacodyl [Dulcolax] 10 mg PO BID PRN PRN tab 09/29/17 [Rx Confirmed 02/25/18] Carvedilol [Coreg (Beta Eugene)] 12.5 mg PO BID #60 tab 09/29/17 [Rx Confirmed 02/25/18] Apixaban [Eliquis] 5 mg PO BID #60 tab 09/30/17 [Rx Confirmed 02/25/18] meclizine 25 mg tablet 25 mg PO ONCE PRN 11/04/17 [History Confirmed 02/25/18] ocrelizumab 30 mg/mL intravenous solution mg .ROUTE 11/04/17 [History Confirmed 02/25/18] tizanidine 4 mg capsule 4 mg PO Q8H PRN 11/04/17 [History Confirmed 02/25/18] simvastatin 20 mg tablet 20 mg PO QPM #90 tab 01/20/18 [Rx Confirmed 02/25/18] lisinopril 20 mg tablet 20 mg PO QDAY 02/25/18 [History Confirmed 02/25/18] PFSH Medical History Abnormal EKG (Chronic) Obstructive sleep apnea (Chronic) Paroxysmal atrial fibrillation (Chronic) Atrial septal defect (Acute) Multiple sclerosis (Chronic) Bladder cancer (Resolved) Pulmonary embolism (Chronic) Hypertension (Chronic) Kidney stones (Chronic) Atrial fibrillation with RVR (Resolved) Surgical History S/P vasectomy (Inactive) ureteroscopy (Inactive) Family History Father CAD (coronary artery disease) Hypertension Mother Hypertension Social History Smoking Status: Never smoker Review of Systems Const CONSTITUTIONAL: Positive fatigue; negative anorexia, body ache, chills, daytime sleepiness, fever(s), night sweats, oral thrush, stops breathing during sleep, weight loss, sleeping in chair, weight loss, weight gain, frequent colds, seasonal allergies, other, headache(s) or orthopnea EETM Ear Nose Throat Mouth: Positive hearing normal; negative hard of hearing, hoarseness, dry mouth in morning, change in vision, itchy eyes, eye pain, swallowing Difficulty, ear pain, nose bleed, headache(s), mouth pain, nasal congestion, nasal discharge, post nasal drip, sinus pain, sinus pressure, sore throat or other Cardio Cardiovascular: Negative chest pain, chest pain at rest, chest pain with activity, irregular heart rhythm, edema, shortness of breath when lying down, palpitations, murmur or other Resp Respiratory: Positive as per HPI and shortness of breath shortness of breath: Positive with activity; negative pain with cough, wheezing, chest congestion, cough, chest tightness, pain on inspiration, inhalers, increase use of rescue inhalers, snoring, apnea or other Gastro Gastrointestional: Negative bloody stools, change in appetite, difficulty swallowing, reflux, hematemesis, melena stool, loose stool, constipation or other Genitourinary: Negative blood in urine, nocturia, pain with urination or other Musc Musculoskeletal: Negative body pain, back pain, neck pain or other Skin/Breast Skin/Breast: Negative dry skin, itching, rash, unusual bruising, breast lump or other Neuro Neurological: Positive weakness; negative restless legs, confusion or other Psych Psychocological: Negative abnormal sleep pattern, anxiety, thoughts of hurting self/others, hopelessness or other Lymph Lymphatic: Negative easy bleeding, easy bruising, swollen lymph nodes or other Exam Const Constitutional: Positive conversant, cooperative, in no acute respiratory distress, healthy appearing, well developed, well nourished and good hygiene Head Head: Positive normocephalic and atraumatic; negative cyanosis of lips/distal nose Eyes Eye: Positive clear conjunctiva and nystagmus; negative scleral abnormality Ears Ear: Positive hearing normal and external ears normal; negative hard of hearing Nose Nose: Positive external nose normal and no nasal discharge; negative epistaxis Mouth Mouth: Positive oral mucosae normal, no lesions, good dentition and posterior oropharynx is adequate; negative post nasal drip, malodorous breath or oral thrush present Mallampati Score: II: Mallampati Score Neck Neck: Positive normal visual inspection, full ROM and trachea midline; negative lymphadenopathy, JVD or tender Chest Wall Chest: Positive normal inspection of the chest and symmetric chest movement; negative increased A/P diameter Resp lung sounds: Positive clear to auscultation, good air exchange, normal expiratory time and normal respiratory effort; negative diminished, wheezes, rhonchi, rales, dullness to percussion or wheeze present on forced exhalation Cardio Cardiac: Positive regular rate, regular rhythm, S1 normal and S2 normal; negative murmur GI GI: Positive normal to inspection and normal bowel sounds; negative distended Genitourinary: Positive deferred Musc Musculoskeletal: Positive in a wheelchair; negative kyphosis or scoliosis Skin Pulmonary Skin Exam: Positive intact; negative rash, lesion, ulcers, erythema, scaly or dermal atrophy Pulses Pulse: Yes pulses normal x4 extremities Extremities Extremities: Yes capillary refill normal, No clubbing, No cyanosis, No edema, No stasis dermatitis Neuro Neurologic: Yes conversant, Yes no focal neuro deficits, Yes cooperative, Yes normal cognition, Yes normal coordination, Yes normal concentration, Yes understands questions Lymph Lymphatic: No lymphadenopathy, No tenderness, No cervical adenopathy, No axillary adenopathy Psych Appearance: Positive grossly normal, eye contact and well kempt Mental Status: Positive mental status grossly normal Mood: Positive congruent mood Affect: Positive normal affect Coding Level of Care Code Off vis,est,level 3 Diagnoses JOSH (obstructive sleep apnea) G47.33 02/27/18 0854 <Electronically signed by Sita CASTELAN> Date Sita CASTELAN Cosigner Signature: Date (if applicable) CC: Melinda Duckworth III, MD PROGRESS Observed: 02/13/2018 Status: COMPLETED Source: [place] 7:51 PM [facility] REPOSITORY HNO ID: [id number] Author: Melinda Duckworth III Service: (none) Author Type: Physician Type: Progress Notes Filed: 02/13/2018 7:51 PM Note Text: Nery, Good news?the PSA blood test is normal. Melinda Duckworth III, MD, FAAFP PSA, DIAGNOSTIC Collected: 02/12/2018 Status: F Source: [place] 10:06 AM [facility] REPOSITORY TYPE CODE TESTS RESULT OUT OF REFERENCE UNITS RANGE LAB PSA 0.00-2.59 ng/mL PSA, Diagnostic 1.15 Result Comment: Total PSA test methodology used is the Electrochemiluminescence Immunoassay. Performed By: #### PSA #### [facility] [address] [place], [place] [address] PROGRESS Observed: 02/12/2018 Status: COMPLETED Source: [place] 8:48 AM [facility] REPOSITORY HNO ID: [id number] Author: Melinda Duckworth III Service: (none) Author Type: Physician Type: Progress Notes Filed: 02/12/2018 1:08 PM Note Text: SUBJECTIVE: This is a 62 year old male that is here today for eval for power wheelchair continuation/replacement. His 6 yr old power wheelchair stopped working. 1. ADLs: no longer able to stand up. Voids in urinal. Needs power wheelchair to get around in the house. Needs help to transfer from wheelchair to bed (to lift legs). He is no longer able to stand and pivot. Due to progressive, severe LLE weakness he is unable to bear weight or to move the extremity. Needs assistance to put on socks, shoes, pants. MS has caused gradually progressive L hemiparesis. He needs assistance with toileting and with safe transfer to the shower bench in the shower 2. Able to slide from wheelchair to shower bench only with assistance for hand held shower. L arm severe weakness with very restricted ROM. Unable to grasp with L hand--so very dependent on R hand grasp only. Has not been able to use a cane or a walker for many yrs. he does not have adequate strength in his left upper extremity or left lower extremity to self propel a manual wheelchair. 3. urinary incontinence. Uses diaper, but is able to void in urinal only if in bed. Has bladder outlet obstruction that makes catheterization difficult. He requires power recline feature in the wheelchair in order to shift weight on his buttocks. Because of his incontinence he is often wet he needs to change body position to prevent pressure sore. His muscle weakness in the left hip and lower extremity limited his ability to shift weight while sitting or supine. PAST MEDICAL HISTORY Diagnosis Date - Chronic atrial fibrillation (HCC) 10/30/2017 on Eliquis - Essential hypertension, benign - History of pulmonary embolus (PE) 11/12/2017 saddle embolus, Jul 2017 - 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 posterior wall of urinary bladder (HCC) 11/12/2017 dx 2014 - Multiple sclerosis ([facility]) primary progressive II - Recurrent UTI 02/21/2016 Current Outpatient Prescriptions on File Prior to Visit: DULoxetine (CYMBALTA) 30 mg capsule TAKE 1 CAPSULE ONCE DAILY COMPOUNDED PRESCRIPTION Power wheelchairDx multiple sclerosis with severe lower extremity weakness Hydrochlorothiazide 12.5 mg capsule Take 1 capsule by mouth once daily. carvedilol (COREG) 12.5 mg tablet Take 1 tablet by mouth twice daily. apixaban (ELIQUIS) 5 mg tab tab(s) Take 1 tablet by mouth twice daily. carvedilol (COREG) 12.5 mg tablet Take 1 tablet by mouth twice daily. apixaban (ELIQUIS) 5 mg tab tab(s) Take 1 tablet by mouth twice daily. amLODIPine (NORVASC) 5 mg tablet Take 1 tablet by mouth once daily. lisinopril (ZESTRIL, PRINIVIL) 20 mg tablet TAKE 1 TABLET DAILY COMPOUNDED PRESCRIPTION Inflatable Emergency Lift Chair teriflunomide (AUBAGIO) 14 mg tab Take 1 tablet by mouth once daily. aspirin, enteric coated (ADULT LOW DOSE ASPIRIN) 81 mg EC tablet Take 1 tablet by mouth once daily. Cholecalciferol, Vitamin D3, 1,000 unit cap Take 1 capsule by mouth once daily. lisdexamfetamine (VYVANSE) 50 mg capsule Take 1 capsule by mouth once daily. bethanechol (URECHOLINE) 10 mg tablet Take 1 tablet by mouth three times daily. meclizine (ANTIVERT) 25 mg Tab Take 1 tablet by mouth three times daily. tiZANidine (ZANAFLEX) 4 mg tablet Take 1 tablet by mouth every 8 hours as needed (muscle spasms). DAILY MULTIVITAMIN TAB Take one(1) tablet daily. VITAMIN E 1,000 UNIT CAP Take one(1) tablet daily. No current facility-administered medications on file prior to visit. FAMILY HISTORY Problem Relation Age of Onset - Cancer Mother LUNG - Heart Father - Coronary Artery Disease Father - Hypertension Mother - Hypertension Father Social History Substance Use Topics - Smoking status: Never Smoker - Smokeless tobacco: Never Used - Alcohol use No BP 150/110 Pulse 75 Resp 18 Wt 108.9 kg (240 lb) BMI 27.73 kg/m2 . OBJECTIVE: APPEARANCE Well appearing, alert, in no acute distress, well-hydrated, well nourished., Sitting in a power wheelchair. He is able to maneuver the joystick of the wheelchair with his right hand Skin dry eczema lateral left and right abdomen NECK Supple, no adenopathy; thyroid symmetric, normal size, no bruits HEART RRR with normal S1 and S2, no murmurs, no gallops, no JVD appreciated LUNG clear to auscultation EXTREMITIES very limited range of motion of left upper extremity with forward flexion perhaps 30? and abduction about 30?. Flaccid paralysis of the left lower extremity without significant swelling No swelling or tenderness of the right lower leg. Fairly good range of motion of the right shoulder. NEURO Awake, alert and oriented x 3, No involuntary motions. and strength grade 2/5 left grind operator. 2/5 left biceps. One/5 left triceps. One/5 left hip flexion 5/5 right grind operator, right biceps, right triceps. 4/5 right hip flexion strength Appearance: well dressed well groomed, cooperative and pleasant Behavior: good eye contact Speech: fluent and coherent Mood: euthymic Affect: appropriate Perceptions: none Thought process: goal directed Thought Content: normal Intelligence level: normal Insight: good Judgment: good ASSESSMENT: Multiple sclerosis with left hemiparesis Depression?stable Hypertension?not at goal Recent pulmonary embolus?probable embolization from lower extremities Chronic anticoagulation History of atrial fibrillation Eczema left and right lateral abdomen PLAN: I recommend continuing use of a power wheel chair for lifetime. He needs a replacement chair because the existing one broke beyond repair (defective computer board). He needs a power wheelchair with power recline in order to maintain basic mobility within the home and to allow basic care from only one assistant professor in family studies restart lisinopril 20mg daily home bp check with progress report in 2 wks same other medications elocon cream daily as needed for itchy rash restart cymbalta 30mg daily PSA Form completed for a power wheelchair NATASHA Mckeon MD, III MD CNOV Observed: 02/12/2018 Status: COMPLETED Source: [place] 8:40 AM [facility] REPOSITORY Office Visit (FAMPWS) NERY MIDDLETON ([id number]) 1955 M Date Time Provider Department 02/12/18 8:40 AM MELINDA DUCKOWRTH III During your visit today, we recorded the following information about you: Pulse Respiration Blood pressure Weight 75/minute 18/minute 150/110 108.9 kg Melinda Duckworth III MD 02/12/2018 1:08 PM Signed SUBJECTIVE: This is a 62 year old male that is here today for eval for power wheelchair continuation/replacement. His 6 yr old power wheelchair stopped working. 1. ADLs: no longer able to stand up. Voids in urinal. Needs power wheelchair to get around in the house. Needs help to transfer from wheelchair to bed (to lift legs). He is no longer able to stand and pivot. Due to progressive, severe LLE weakness he is unable to bear weight or to move the extremity. Needs assistance to put on socks, shoes, pants. MS has caused gradually progressive L hemiparesis. He needs assistance with toileting and with safe transfer to the shower bench in the shower 2. Able to slide from wheelchair to shower bench only with assistance for hand held shower. L arm severe weakness with very restricted ROM. Unable to grasp with L hand--so very dependent on R hand grasp only. Has not been able to use a cane or a walker for many yrs. he does not have adequate strength in his left upper extremity or left lower extremity to self propel a manual wheelchair. 3. urinary incontinence. Uses diaper, but is able to void in urinal only if in bed. Has bladder outlet obstruction that makes catheterization difficult. He requires power recline feature in the wheelchair in order to shift weight on his buttocks. Because of his incontinence he is often wet he needs to change body position to prevent pressure sore. His muscle weakness in the left hip and lower extremity limited his ability to shift weight while sitting or supine. PAST MEDICAL HISTORY Diagnosis Date - Chronic atrial fibrillation (HCC) 10/30/2017 on Eliquis - Essential hypertension, benign - History of pulmonary embolus (PE) 11/12/2017 saddle embolus, Jul 2017 - 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 posterior wall of urinary bladder (HCC) 11/12/2017 dx 2014 - Multiple sclerosis ([facility]) primary progressive II - Recurrent UTI 02/21/2016 Current Outpatient Prescriptions on File Prior to Visit: DULoxetine (CYMBALTA) 30 mg capsule TAKE 1 CAPSULE ONCE DAILY COMPOUNDED PRESCRIPTION Power wheelchairDx multiple sclerosis with severe lower extremity weakness Hydrochlorothiazide 12.5 mg capsule Take 1 capsule by mouth once daily. carvedilol (COREG) 12.5 mg tablet Take 1 tablet by mouth twice daily. apixaban (ELIQUIS) 5 mg tab tab(s) Take 1 tablet by mouth twice daily. carvedilol (COREG) 12.5 mg tablet Take 1 tablet by mouth twice daily. apixaban (ELIQUIS) 5 mg tab tab(s) Take 1 tablet by mouth twice daily. amLODIPine (NORVASC) 5 mg tablet Take 1 tablet by mouth once daily. lisinopril (ZESTRIL, PRINIVIL) 20 mg tablet TAKE 1 TABLET DAILY COMPOUNDED PRESCRIPTION Inflatable Emergency Lift Chair teriflunomide (AUBAGIO) 14 mg tab Take 1 tablet by mouth once daily. aspirin, enteric coated (ADULT LOW DOSE ASPIRIN) 81 mg EC tablet Take 1 tablet by mouth once daily. Cholecalciferol, Vitamin D3, 1,000 unit cap Take 1 capsule by mouth once daily. lisdexamfetamine (VYVANSE) 50 mg capsule Take 1 capsule by mouth once daily. bethanechol (URECHOLINE) 10 mg tablet Take 1 tablet by mouth three times daily. meclizine (ANTIVERT) 25 mg Tab Take 1 tablet by mouth three times daily. tiZANidine (ZANAFLEX) 4 mg tablet Take 1 tablet by mouth every 8 hours as needed (muscle spasms). DAILY MULTIVITAMIN TAB Take one(1) tablet daily. VITAMIN E 1,000 UNIT CAP Take one(1) tablet daily. No current facility-administered medications on file prior to visit. FAMILY HISTORY Problem Relation Age of Onset - Cancer Mother LUNG - Heart Father - Coronary Artery Disease Father - Hypertension Mother - Hypertension Father Social History Substance Use Topics - Smoking status: Never Smoker - Smokeless tobacco: Never Used - Alcohol use No BP 150/110 Pulse 75 Resp 18 Wt 108.9 kg (240 lb) BMI 27.73 kg/m2 . OBJECTIVE: APPEARANCE Well appearing, alert, in no acute distress, well- hydrated, well nourished., Sitting in a power wheelchair. He is able to maneuver the joystick of the wheelchair with his right hand Skin dry eczema lateral left and right abdomen NECK Supple, no adenopathy; thyroid symmetric, normal size, no bruits HEART RRR with normal S1 and S2, no murmurs, no gallops, no JVD appreciated LUNG clear to auscultation EXTREMITIES very limited range of motion of left upper extremity with forward flexion perhaps 30? and abduction about 30?. Flaccid paralysis of the left lower extremity without significant swelling No swelling or tenderness of the right lower leg. Fairly good range of motion of the right shoulder. NEURO Awake, alert and oriented x 3, No involuntary motions. and strength grade 2/5 left grind operator. 2/5 left biceps. One/5 left triceps. One/5 left hip flexion 5/5 right grind operator, right biceps, right triceps. 4/5 right hip flexion strength Appearance: well dressed well groomed, cooperative and pleasant Behavior: good eye contact Speech: fluent and coherent Mood: euthymic Affect: appropriate Perceptions: none Thought process: goal directed Thought Content: normal Intelligence level: normal Insight: good Judgment: good ASSESSMENT: Multiple sclerosis with left hemiparesis Depression?stable Hypertension?not at goal Recent pulmonary embolus?probable embolization from lower extremities Chronic anticoagulation History of atrial fibrillation Eczema left and right lateral abdomen PLAN: I recommend continuing use of a power wheel chair for lifetime. He needs a replacement chair because the existing one broke beyond repair (defective computer board). He needs a power wheelchair with power recline in order to maintain basic mobility within the home and to allow basic care from only one assistant professor in family studies restart lisinopril 20mg daily home bp check with progress report in 2 wks same other medications elocon cream daily as needed for itchy rash restart cymbalta 30mg daily PSA Form completed for a power wheelchair NATASHA Mckeon MD, III MD Frank A Cebul, III MD 02/12/2018 9:25 AM Addendum PLAN: I recommend continuing use of a power wheel chair for lifetime. He needs a replacement chair because the existing one broke beyond repair (defective computer board) restart lisinopril 20mg daily restart cymbalta 30mg daily home bp check with progress report in 2 wks same other medications elocon cream daily as needed for itchy rash psa Melinda Duckworth III MD Referring Provider: SELF [200] Allergies As of Date: 02/12/2018 (No Known Allergies) Date Reviewed: 02/12/2018 Reviewed by: Chanel ([facility]) LUIS ANTONIO Baez - Fully Assessed Reason for Visit: Wheelchair assessment [Other] Primary Visit Diagnosis:Multiple sclerosis (HCC) [G35] Other Visit Diagnoses:Essential hypertension, benign [I10] Recurrent major depressive disorder, remission status unspecified (HCC) [F33.9] Neurogenic bladder [N31.9] Chronic atrial fibrillation (HCC) [I48.2] History of pulmonary embolus (PE) [Z86.711] 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] Eczema, unspecified type [L30.9] Prostate cancer screening [Z12.5] Bladder neck obstruction [N32.0] Order(s):DULoxetine (CYMBALTA) 30 mg capsuleTake 1 capsule by mouth once daily.Disp: 90 capsuleRfl: 3 lisinopril (ZESTRIL, PRINIVIL) 20 mg tabletTake 1 tablet by mouth once daily.Disp: 90 tabletRfl: 3 mometasone (ELOCON) 0.1 % creamApply 1 application to affected area once daily.Disp: 45 gRfl: 1 PSA/PROSTSPECAG DIAG [SQPSA] Order #: [id number] FUTURE Prescriptions as of 02/12/2018 Sig: DULOXETINE 30 MG CAPSULE,MERLE* Take 1 capsule by mouth once * LISINOPRIL 20 MG TABLET Take 1 tablet by mouth once d* COMPOUNDED PRESCRIPTION Power wheelchair Dx multip* CARVEDILOL 12.5 MG TABLET Take 1 tablet by mouth twice * APIXABAN 5 MG TABLET Take 1 tablet by mouth twice * CARVEDILOL 12.5 MG TABLET Take 1 tablet by mouth twice * APIXABAN 5 MG TABLET Take 1 tablet by mouth twice * COMPOUNDED PRESCRIPTION Inflatable Emergency Lift Bel* ASPIRIN 81 MG TABLET,DELAYED * Take 1 tablet by mouth once d* CHOLECALCIFEROL (VITAMIN D3) * Take 1 capsule by mouth once * LISDEXAMFETAMINE 50 MG CAPSULE Take 1 capsule by mouth once * BETHANECHOL CHLORIDE 10 MG TA* Take 1 tablet by mouth three * MECLIZINE 25 MG TABLET Take 1 tablet by mouth three * TIZANIDINE 4 MG TABLET Take 1 tablet by mouth every * DAILY MULTIVITAMIN TABLET Take one(1) tablet daily. VITAMIN E 1,000 UNIT CAPSULE Take one(1) tablet daily. MOMETASONE 0.1 % TOPICAL CREAM Apply 1 application to affect* Problem List As Of Date 02/12/2018 Noted Resolved BENIGN HYPERTENSION [I10] MULTIPLE SCLEROSIS [G35] Depression [F32.9] INVALID FOR* Neurogenic bladder [N31.9] INVALID FOR* Recurrent UTI [N39.0] INVALID FOR* Chronic atrial fibrillation (HCC) [I48.2] INVALID FOR* More... History of pulmonary embolus (PE) [Z86.711] INVALID FOR* More... 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 posterior wall of urinary*INVALID FOR* More... Other instructions from your clinician: PLAN: I recommend continuing use of a power wheel chair for lifetime. He needs a replacement chair because the existing one broke beyond repair (defective computer board) restart lisinopril 20mg daily restart cymbalta 30mg daily home bp check with progress report in 2 wks same other medications elocon cream daily as needed for itchy rash psa Melinda Duckworth III Prescriptions ordered this encounter Disp Refills Start End DULOXETINE 30 MG CAPSULE,DELAYED REL* 90 c* 3 02/12/2018 Class: Med Update Route: ORAL Sig: Take 1 capsule by mouth once daily. LISINOPRIL 20 MG TABLET 90 t* 3 02/12/2018 Class: Med Update Route: ORAL Sig: Take 1 tablet by mouth once daily. MOMETASONE 0.1 % TOPICAL CREAM 45 g 1 02/12/2018 Route: TOPICAL Sig: Apply 1 application to affected area once daily. Medications Discontinued During This Encounter DULoxetine (CYMBALTA) 30 mg capsule 90 c* 3 11/13/2017 02/12/2018 Sig: TAKE 1 CAPSULE ONCE DAILY Disc: Reason for discontinue is not on file. lisinopril (ZESTRIL, PRINIVIL) 20 mg* 90 t* 3 03/25/2017 02/12/2018 Sig: TAKE 1 TABLET DAILY Disc: Reason for discontinue is not on file. Hydrochlorothiazide 12.5 mg capsule 90 c* 3 10/30/2017 02/12/2018 Route: ORAL Sig: Take 1 capsule by mouth once daily. Disc: Discontinued by another Health Care Provider amLODIPine (NORVASC) 5 mg tablet 90 t* 3 05/29/2017 02/12/2018 Route: ORAL Sig: Take 1 tablet by mouth once daily. Disc: Discontinued by another Health Care Provider teriflunomide (AUBAGIO) 14 mg tab 0 11/06/2015 02/12/2018 Class: Historical Med Route: ORAL Sig: Take 1 tablet by mouth once daily. Disc: Course of therapy completed Encounter Status:Closed by MELINDA DUCKWORTH III, MD on 02/12/18 STRESS TEST ECHO W/O Observed: 01/21/2018 Status: F Source: [place] CONTRAST 3:49 PM [facility] REPOSITORY [facility] Cardiovascular Services [address] [place] [id number] Stress Test Echo W/Contrast MR#: [id number] Acct: [id number] Name: NERY MIDDLETON Rep #: [id number] : 1955 62 From: Keron Monteiro MD Primary Care: Melinda Duckworth III, MD Status: REG CLI Ordering Dr: Keron Monteiro MD Sex: M C Reason For Study: AFIB Stress Results Protocol: Dobutamine Maximum Predicted HR: 160 bpm Target HR: 136 bpm% Maximum Predicted HR: 85 % DurationHeart Rate Stage (mm:ss) (bpm) BPDose Comment BASELINE 74 169/10 0 0.3 ML DEFINITY STAGE 1 4:00 76 167/90938.000.1 ML DEFINITY STAGE 2 3:00 96 176/55079.00 STAGE 3 3:00 10 8 178/57521.00.25 MG ATROPINE/0.1 ML DEFINITY STAGE 4 3:59 13 6 135/8740.00.25 MG ATROPINE/0.1 ML DEFINITY RECOVERY 100 139/1 07 0.1 ML DEFINITY Stress Duration: 13:59 mm:ss Maximum Stress HR: 136 bpm Baseline Echocardiogram Findings Stress Echo Wall motion Data Resting WMIntermediate WMStress WM Resting Wall Motion Wall Motion Stress No regional wall motion No regional wall motion abnormalities noted. abnormalities noted. EKG Data The baseline ECG demonstrates normal sinus rhythm with at rate of _ beats per minute. The patient was titrated from 10 mcg to a maximum of 40 mcg of dobutamine during the stress. The maximum heart rate attained was 136 beats per minute. This was 85% of maximum predicted heart rate. During dobutamine infusion, there were no ST or T wave changes noted to suggest ischemia. No clinical angina was noted. Interpretation Summary The study was technically difficult. Contrast injection was performed. Normal adequate dobutamine echocardiogram. Negative for ischemia by EKG and echocardiographic criteria. No anginal symptoms noted. Rare PVCs and ventricular couplets noted, which is a nonspecific finding given dobutamine infusion. Hypertensive blood pressure response to dobutamine. Final LVEF is 75%. Decreased sensitivity due to poor echo windows requiring Definity agent. Test terminated due to the attainment of target heart rate. No complications. Ordering Physician: Keron Monteiro Referring Physician: Keron Monteiro Performed By: Viji Marie, MARA, RVT 01/21/18 1549 Date Keron Monteiro MD CC: Keron Monteiro MD; Melinda Duckworth III, MD Date Dictated: 01/21/18 1128 Date Transcribed: 01/21/18 1549 [employer]: Signed LIPID PROFILE Collected: 01/21/2018 Status: F Source: LIDA 10:37 AM [facility] REPOSITORY TYPE CODE TESTS RESULT OUT OF RANGE REFERENCE UNITS LAB L501.4900 200 mg/dL Normal CHOL 137 Result Comment: <200 mg/dL Desirable 200-240 mg/dL Borderline >240 mg/dL High Risk LAB L501.5000 mg/dL Normal TRIG 111 Result Comment: The drugs N-Acetylcysteine and Metamizole may falsely depress this assay. Serum Triglycerides Reference Interval Normal <150 mg/dL Borderline high 150 - 199 mg/dL High 200 - 499 mg/dL Very High > or = 500 mg/dL LAB L501.6400 mg/dL Normal HDL 47 Result Comment: The drugs N-Acetylcysteine and Metamizole may falsely depress this assay. Reference Range HDL <40 mg/dL Low HDL Cholesterol HDL >or= 60 mg/dL High HDL Cholesterol LAB L501.6500 0-130 mg/dL Normal LDL 68 LAB L501.6600 5-40 mg/dL Normal VLDL 22 Performed By: #### L500.4100 #### [facility] [address] [place], [place], [address] PULMONARY VISIT REPORT Observed: 01/14/2018 Status: F Source: LIDA 4:14 PM [facility] REPOSITORY Pulmonary Medicine of [address] [place] [address] OFFICE VISIT Date of Service: 01/14/18 MR#: [id number] Acct: [id number] Name: NERY MIDDLETON Rep #: [id number] : 1955 Provider: Sita Cyr Age/Sex: 62/M Location: [facility] Status: Signed Assessment AND Plan Problems 1. JOSH (obstructive sleep apnea) G47.33 Status Chronic Plan The patient is using and benefiting from current therapy, however we are trying to optimize his apnea hypotony index. Will return to previous settings of 21/17 cm of water. The patient has been encouraged to keep a close eye on his air leaks in the integrity of his cushion. We will follow him closely, I will see him back in the office in 1 month. If at 1 month his apnea hypotony index score remains elevated we may have to send him for a titration study or evaluate alternative pressure support therapy. Plan Detail Follow Up 1 Month ([facility]) HPI 1 M FU: Chief Complaint: JOSH HPI Comments Details: This patient presents to the office today for a one- month follow-up on his obstructive sleep apnea. He is in a wheelchair, currently on room air and accompanied by his significant other. At his last office visit it was identified in his AHI remains elevated, at the time was found to be 7.7 events per hour. He is pressure support was increased with anticipation that we would have better control of his AHI. BiPAP was increased to 23/19 cm's of water (up from 21/17 cm of water). Repeat complaints report shows 100% compliance over the past 30 days. Average use is 6 hours nightly. Current settings are 23/19 cm of water. Current AHI is more elevated at 16.8 events per hour. During the first part of the month leaks did appear to be an issue but it is noted that something has changed over the past 6 days and leaks are well controlled. The patient reports that he has not noticed much of a difference since increase in pressure support. He did note that he was having air leaks and requested assistance from his to tighten his mask. He denies any shortness of breath, cough, chest pain or palpitations. He has not had any medication changes over the past 30 days. See complete review of systems. Intake Vital Signs01/14/18 Blood Pressure 147/97 01/14/18 Blood Pressure Location Rt brachial Intake Visit Reasons: 1 M FU DME Vendor: [employer] Accompanied by: Allergies No Known Allergies Allergy (Verified 01/14/18 12:53) Medications Aspirin 81 mg PO DAILY 08/11/17 [History Confirmed 01/14/18] Cholecalciferol (VIT D3) [Vitamin D3] 5,000 unit PO DAILY tab 08/29/17 [Rx Confirmed 01/14/18] Lisdexamfetamine Dimesylate [Vyvanse] 50 mg PO DAILY cap 08/29/17 [Rx Confirmed 01/14/18] Multivitamins,Therapeutic [Multivitamin] 1 tab PO DAILY@0800 tab 08/29/17 [Rx Confirmed 01/14/18] Acetaminophen 500 mg PO Q8H PRN PRN 09/14/17 [History Confirmed 01/14/18] Sennosides/Docusate Sodium [Senna-Docusate Sodium Tablet] 2 ea PO BID PRN PRN 09/14/17 [History Confirmed 01/14/18] Vitamin E (Dl,Tocopheryl Acet) [Vitamin E] 400 units PO DAILY 09/14/17 [History Confirmed 01/14/18] Bisacodyl [Dulcolax] 10 mg PO BID PRN PRN tab 09/29/17 [Rx Confirmed 01/14/18] Carvedilol [Coreg (Beta Eugene)] 12.5 mg PO BID #60 tab 09/29/17 [Rx Confirmed 01/14/18] Apixaban [Eliquis] 5 mg PO BID #60 tab 09/30/17 [Rx Confirmed 01/14/18] meclizine 25 mg tablet 25 mg PO ONCE PRN 11/04/17 [History Confirmed 01/14/18] ocrelizumab 30 mg/mL intravenous solution mg .ROUTE 11/04/17 [History Confirmed 01/14/18] simvastatin 20 mg tablet 20 mg PO QPM #30 tab 11/04/17 [Rx Confirmed 01/14/18] tizanidine 4 mg capsule 4 mg PO Q8H PRN 11/04/17 [History Confirmed 01/14/18] albuterol sulfate 2.5 mg/3 mL (0.083 %) solution for nebulization 2.5 mg INHALATION Q4H PRN #180 ml 12/16/17 [Rx Confirmed 01/14/18] [facility] Medical History Abnormal EKG (Chronic) Obstructive sleep apnea (Chronic) Paroxysmal atrial fibrillation (Chronic) Atrial septal defect (Acute) Multiple sclerosis (Chronic) Bladder cancer (Resolved) Pulmonary embolism (Chronic) Hypertension (Chronic) Kidney stones (Chronic) Atrial fibrillation with RVR (Resolved) Surgical History S/P vasectomy (Inactive) ureteroscopy (Inactive) Family History Father CAD (coronary artery disease) Hypertension Mother Hypertension Social History Smoking Status: Never smoker Review of Systems Const CONSTITUTIONAL: Positive fatigue; negative anorexia, body ache, chills, daytime sleepiness, fever(s), night sweats, oral thrush, stops breathing during sleep, weight loss, sleeping in chair, weight loss, weight gain, frequent colds, seasonal allergies, other, headache(s) or orthopnea EETM Ear Nose Throat Mouth: Positive hearing normal; negative hard of hearing, hoarseness, dry mouth in morning, change in vision, itchy eyes, eye pain, swallowing Difficulty, ear pain, nose bleed, headache(s), mouth pain, nasal congestion, nasal discharge, post nasal drip, sinus pain, sinus pressure, sore throat or other Cardio Cardiovascular: Positive murmur; negative chest pain, chest pain at rest, chest pain with activity, irregular heart rhythm, edema, shortness of breath when lying down, palpitations or other Resp Respiratory: Positive as per HPI and shortness of breath; negative pain with cough, wheezing, chest congestion, cough, chest tightness, pain on inspiration, inhalers, increase use of rescue inhalers, snoring, apnea or other Gastro Gastrointestional: Negative bloody stools, change in appetite, difficulty swallowing, reflux, hematemesis, melena stool, loose stool, constipation or other Genitourinary: Negative blood in urine, nocturia, pain with urination or other Musc Musculoskeletal: Negative body pain, back pain, neck pain or other Skin/Breast Skin/Breast: Negative dry skin, itching, rash, unusual bruising, breast lump or other Neuro Neurological: Positive weakness; negative restless legs, confusion or other Psych Psychocological: Negative abnormal sleep pattern, anxiety, thoughts of hurting self/others, hopelessness or other Lymph Lymphatic: Negative easy bleeding, easy bruising, swollen lymph nodes or other Exam Const Constitutional: Positive conversant, cooperative, in no acute respiratory distress, healthy appearing, well developed, well nourished and good hygiene Head Head: Positive normocephalic and atraumatic; negative cyanosis of lips/distal nose Eyes Eye: Positive clear conjunctiva and nystagmus; negative scleral abnormality Ears Ear: Positive hearing normal and external ears normal; negative hard of hearing Nose Nose: Positive external nose normal and no nasal discharge; negative epistaxis Mouth Mouth: Positive oral mucosae normal, no lesions, good dentition and crowded posterior oropharynx; negative post nasal drip, malodorous breath or oral thrush present Mallampati Score: III: Mallampati Score Neck Neck: Positive normal visual inspection, full ROM, trachea midline, thick neck and male neck greater than 43 cm (17 in); negative lymphadenopathy, JVD or tender Chest Wall Chest: Positive normal inspection of the chest and symmetric chest movement; negative increased A/P diameter Resp lung sounds: Positive clear to auscultation, good air exchange, normal expiratory time and normal respiratory effort; negative diminished, wheezes, rales, rhonchi, wheeze present on forced exhalation or dullness to percussion Cardio Cardiac: Positive regular rate, S1 normal, S2 normal, regular rhythm and murmur murmur: Positive systolic and RUSB GI GI: Positive normal to inspection and normal bowel sounds; negative distended Genitourinary: Positive deferred Musc Musculoskeletal: Positive steady gait and ROM normal; negative kyphosis or scoliosis Skin Pulmonary Skin Exam: Positive intact; negative rash, lesion, ulcers, erythema, scaly or dermal atrophy Pulses Pulse: Yes pulses normal x4 extremities Extremities Extremities: No edema, Yes capillary refill normal, No clubbing, No cyanosis, No stasis dermatitis Neuro Neurologic: Yes conversant, Yes no focal neuro deficits, Yes cooperative, Yes normal cognition, Yes normal coordination, Yes understands questions, Yes normal concentration Lymph Lymphatic: No lymphadenopathy, No tenderness, No cervical adenopathy, No axillary adenopathy Psych Appearance: Positive grossly normal, eye contact and well kempt Mental Status: Positive mental status grossly normal Mood: Positive congruent mood Affect: Positive normal affect Coding Level of Care Code Off vis,est,level 3 Diagnoses JOSH (obstructive sleep apnea) G47.33 01/14/18 1614 <Electronically signed by Sita CASTELAN> Date Sita CASTELAN Cosigner Signature: Date (if applicable) CC: Melinda Duckworth III, MD PULMONARY VISIT REPORT Observed: 12/17/2017 Status: F Source: LIDA 9:30 AM [facility] REPOSITORY [facility] of [place] [place] [address] OFFICE VISIT Date of Service: 12/15/17 MR#: [id number] Acct: [id number] Name: NERY MIDDLETON Rep #: [id number] : 1955 Provider: Sita Cyr Age/Sex: 62/M Location: [facility] Status: Signed Assessment AND Plan 1. JOSH (obstructive sleep apnea) G47.33 Status Chronic Plan He has done well acclimating to the BiPAP. He is feeling more rested, and is napping less frequently and for shorter amount of time. He continues to have an elevated AHI, therefore I am going to increase his pressure to 23/19 and follow-up with him in 1 month to reevaluate his AHI and his symptoms. Currently, the patient is using and benefiting from therapy. 2. Paroxysmal atrial fibrillation I48.0 Status Chronic Plan Rate is under control, patient is compliant with his oral anticoagulation and displays no signs of side effects such as bleeding. Defer treatment to cardiology. 3. Acute saddle pulmonary embolism with acute cor pulmonale I26.02 Status Chronic Plan Continue oral anticoagulation for at least 6 months. The patient is still having episodes of paroxysmal atrial fibrillation would continue oral anticoagulation indefinitely. Echocardiogram shows improvement. Continue current treatment, follow-up in 1 month regarding BiPAP. Otherwise, follow-up with Dr. Ni in 3 months. 4. Multiple sclerosis G35 Status Chronic Plan Encouraged to use incentive spirometer and Acapella valve. Added albuterol nebulizer to help loosen secretions. Patient did have rhonchi on exam that cleared with coughing. Do believe the patient would benefit from an albuterol nebulizer treatment. We will follow-up in 1 month. No additional testing at this time. Plan Detail Other Medications New: albuterol sulfate 2.5 mg (3 mL) Inhalation Q4H PRN Sob AND /Or Wheezing Acute Resp Failure J9 6.00 Follow Up 1 Month ([facility]) HPI 1 M FU: Chief Complaint: josh HPI Comments Details: This is a 62 year old very pleasant m, currently under the care of Dr. Melinda Duckworth iii [facility], here to follow up for sleep apnea and to discuss recent test results. Current use of pressure support therapy is on average of 7 hours per night with current settings of 21/17 cmH2O. Last sleep study was completed on October 07, 2017, overall [facility] apnea hypotony index was 63.5 events per hour. According to the data at a bilevel of 21/17 cm of water the AHI was 7.7 events per hour. NERY denies any dry mouth in the morning, nocturia, snoring through the mask, morning headaches or difficulty with mask leaks, but is experiencing daytime somnolence, according to the patient's he is napping less frequently and for shorter periods of time. NERY reports feeling rested in the morning and is benefitting from current therapy. Compliance report was reviewed and shows 100% compliance with an AHI of 19.3 events per hour, leaks do not appear to be an issue. I personally reviewed the tests/images/tracings which showed: Complete Pulmonary Function test were preformed on November 04, 2017, and showed FVC of 95 % of predicted, FEV1 of 91% of predicted, FEV1/FVC ratio of 72 %, TLC of 89 % of predicted, RV of 6685% of predicted % of predicted, DLCO . The test was interpreted to be consistent within grossly normal limits, does show subtle signs of small airway obstruction. Echocardiogram completed on December 10, 2017 shows an EF of 60%, Doppler flow suggestive of impaired relaxation of the left ventricle, RVSP is estimated to be 19 mmHg. He continues compliance with his Eliquis. He denies any signs of bleeding, denies any hemoptysis, hematemesis, hematochezia or melena stools. He denies any shortness of breath, chest tightness or palpitations. He denies any fever or chills. Denies any difficulty with lower extremity edema. See complete review of systems. Intake Vital Signs12/15/17 Height 6 ft 6 in 12/15/17 Weight: 240 lb Intake Visit Reasons: 1 M FU DME Vendor: [employer] Accompanied by: Allergies No Known Allergies Allergy (Verified 12/15/17 09:40) Medications Aspirin 81 mg PO DAILY 08/11/17 [History Confirmed 12/15/17] Cholecalciferol (VIT D3) [Vitamin D3] 5,000 unit PO DAILY tab 08/29/17 [Rx Confirmed 12/15/17] Lisdexamfetamine Dimesylate [Vyvanse] 50 mg PO DAILY cap 08/29/17 [Rx Confirmed 12/15/17] Multivitamins,Therapeutic [Multivitamin] 1 tab PO DAILY@0800 tab 08/29/17 [Rx Confirmed 12/15/17] Acetaminophen 500 mg PO Q8H PRN PRN 09/14/17 [History Confirmed 12/15/17] Sennosides/Docusate Sodium [Senna-Docusate Sodium Tablet] 2 ea PO BID PRN PRN 09/14/17 [History Confirmed 12/15/17] Vitamin E (Dl,Tocopheryl Acet) [Vitamin E] 400 units PO DAILY 09/14/17 [History Confirmed 12/15/17] Bisacodyl [Dulcolax] 10 mg PO BID PRN PRN tab 09/29/17 [Rx Confirmed 12/15/17] Carvedilol [Coreg (Beta Eugene)] 12.5 mg PO BID #60 tab 09/29/17 [Rx Confirmed 12/15/17] Apixaban [Eliquis] 5 mg PO BID #60 tab 09/30/17 [Rx Confirmed 12/15/17] meclizine 25 mg tablet 25 mg PO ONCE PRN 11/04/17 [History Confirmed 12/15/17] ocrelizumab 30 mg/mL intravenous solution mg .ROUTE 11/04/17 [History Confirmed 12/15/17] simvastatin 20 mg tablet 20 mg PO QPM #30 tab 11/04/17 [Rx Confirmed 12/15/17] tizanidine 4 mg capsule 4 mg PO Q8H PRN 11/04/17 [History Confirmed 12/15/17] albuterol sulfate 2.5 mg/3 mL (0.083 %) solution for nebulization 2.5 mg INHALATION Q4H PRN #180 ml 12/16/17 [Rx] PFSH Medical History Abnormal EKG (Chronic) Obstructive sleep apnea (Chronic) Paroxysmal atrial fibrillation (Chronic) Atrial septal defect (Acute) Multiple sclerosis (Chronic) Bladder cancer (Resolved) Pulmonary embolism (Chronic) Hypertension (Chronic) Kidney stones (Chronic) Atrial fibrillation with RVR (Resolved) Surgical History S/P vasectomy (Inactive) ureteroscopy (Inactive) Family History Father CAD (coronary artery disease) Hypertension Mother Hypertension Social History Smoking Status: Never smoker Review of Systems Const CONSTITUTIONAL: Negative anorexia, body ache, chills, daytime sleepiness, fever(s), night sweats, oral thrush, stops breathing during sleep, weight loss, sleeping in chair, fatigue, weight loss, weight gain, frequent colds, seasonal allergies, other, headache(s) or orthopnea EETM Ear Nose Throat Mouth: Positive hearing normal; negative hard of hearing, hoarseness, dry mouth in morning, change in vision, itchy eyes, eye pain, swallowing Difficulty, ear pain, nose bleed, headache(s), mouth pain, nasal congestion, nasal discharge, post nasal drip, sinus pain, sinus pressure, sore throat or other Cardio Cardiovascular: Negative chest pain, chest pain at rest, chest pain with activity, irregular heart rhythm, edema, shortness of breath when lying down, palpitations, murmur or other Resp Respiratory: Positive as per HPI and apnea; negative shortness of breath, pain with cough, wheezing, chest congestion, cough, chest tightness, pain on inspiration, inhalers, increase use of rescue inhalers, snoring or other Gastro Gastrointestional: Negative bloody stools, change in appetite, difficulty swallowing, reflux, hematemesis, melena stool, loose stool, constipation or other Genitourinary: Negative blood in urine, nocturia, pain with urination or other Musc Musculoskeletal: Negative body pain, back pain, neck pain or other Skin/Breast Skin/Breast: Negative dry skin, itching, rash, unusual bruising, breast lump or other Neuro Neurological: Negative restless legs, confusion, weakness or other Psych Psychocological: Negative abnormal sleep pattern, anxiety, thoughts of hurting self/others, hopelessness or other Lymph Lymphatic: Negative easy bleeding, easy bruising, swollen lymph nodes or other Exam Const Constitutional: Positive conversant, cooperative, in no acute respiratory distress, healthy appearing, well developed, well nourished and good hygiene Head Head: Positive normocephalic and atraumatic; negative cyanosis of lips/distal nose Eyes Eye: Positive clear conjunctiva and nystagmus; negative scleral abnormality Ears Ear: Positive hearing normal and external ears normal; negative hard of hearing Nose Nose: Positive external nose normal and no nasal discharge; negative epistaxis Mouth Mouth: Positive oral mucosae normal, no lesions, good dentition and posterior oropharynx is adequate; negative post nasal drip, malodorous breath or oral thrush present Mallampati Score: II: Mallampati Score Neck Neck: Positive normal visual inspection, full ROM and trachea midline; negative lymphadenopathy, JVD or tender Chest Wall Chest: Positive normal inspection of the chest and symmetric chest movement; negative increased A/P diameter Resp lung sounds: Positive clear to auscultation, good air exchange, normal expiratory time and normal respiratory effort; negative diminished, wheezes, rhonchi, rales, dullness to percussion or wheeze present on forced exhalation Cardio Cardiac: Positive regular rate, regular rhythm, S1 normal and S2 normal; negative murmur GI GI: Positive normal to inspection and normal bowel sounds; negative distended Genitourinary: Positive deferred Musc Musculoskeletal: Positive in a wheelchair; negative kyphosis or scoliosis Skin Pulmonary Skin Exam: Positive intact; negative rash, lesion, ulcers, erythema or scaly Pulses Pulse: Yes pulses normal x4 extremities Extremities Extremities: Yes capillary refill normal, No clubbing, No cyanosis, No edema Neuro Neurologic: Yes conversant, Yes cooperative, Yes normal cognition, Yes normal coordination, Yes understands questions, Yes normal concentration, Yes paraplegic Lymph Lymphatic: No lymphadenopathy, No tenderness, No cervical adenopathy, No axillary adenopathy Psych Appearance: Positive grossly normal, eye contact and well kempt Mental Status: Positive mental status grossly normal Mood: Positive congruent mood Affect: Positive normal affect Coding Level of Care Code Off vis,est,level 4 Diagnoses JOSH (obstructive sleep apnea) G47.33 Paroxysmal atrial fibrillation I48.0 Acute saddle pulmonary embolism with acute cor pulmonale I26.02 Acute cor pulmonale presence: with acute cor pulmonale Chronicity: acute Pulmonary embolism type: saddle Multiple sclerosis G35 12/17/17 0930 <Electronically signed by Sita CASTELAN> Date Sita CASTELAN Cosigner Signature: Date (if applicable) CC: Melinda Duckworth III, MD OBSOLETE Observed: 11/13/2017 Status: COMPLETED Source: [place] 12:00 AM [facility] REPOSITORY Refill (FAMPWS) NERY MIDDLETON ([id number]) 1955 M Date Time Provider Department 11/13/17 MELINDA DUCKWORTH III During your visit today, we recorded the following information about you: Eliane Quijano Ma 11/13/2017 7:59 AM Signed Patient has been identified by name and date of : Yes RX INSTRUCTIONS: Patient aware RX will be sent to pharmacy. No need to notify patient. Eliane Quijano Ma Last OV: 11/12/2017 Last refill: 11/2016 Allergies As of Date: 11/13/2017 Noted Allergy Reaction BEES 10/14/2005 Date Reviewed: 11/12/2017 Reviewed by: Alix Jenkins Clinical Research Nurse - Fully Assessed Reason for Visit: Refill Request [94] Order(s):DULoxetine (CYMBALTA) 30 mg capsuleTAKE 1 CAPSULE ONCE DAILYDisp: 90 capsuleRfl: 3 Prescriptions as of 11/13/2017 Sig: DULOXETINE 30 MG CAPSULE,MERLE* TAKE 1 CAPSULE ONCE DAILY HYDROCHLOROTHIAZIDE 12.5 MG C* Take 1 capsule by mouth once * CARVEDILOL 12.5 MG TABLET Take 1 tablet by mouth twice * APIXABAN 5 MG TABLET Take 1 tablet by mouth twice * CARVEDILOL 12.5 MG TABLET Take 1 tablet by mouth twice * APIXABAN 5 MG TABLET Take 1 tablet by mouth twice * AMLODIPINE 5 MG TABLET Take 1 tablet by mouth once d* LISINOPRIL 20 MG TABLET TAKE 1 TABLET DAILY COMPOUNDED PRESCRIPTION Inflatable Emergency Lift Bel* TERIFLUNOMIDE 14 MG TABLET Take 1 tablet by mouth once d* ASPIRIN 81 MG TABLET,DELAYED * Take 1 tablet by mouth once d* CHOLECALCIFEROL (VITAMIN D3) * Take 1 capsule by mouth once * LISDEXAMFETAMINE 50 MG CAPSULE Take 1 capsule by mouth once * BETHANECHOL CHLORIDE 10 MG TA* Take 1 tablet by mouth three * MECLIZINE 25 MG TABLET Take 1 tablet by mouth three * TIZANIDINE 4 MG TABLET Take 1 tablet by mouth every * DAILY MULTIVITAMIN TABLET Take one(1) tablet daily. VITAMIN E 1,000 UNIT CAPSULE Take one(1) tablet daily. Problem List As Of Date 11/13/2017 Noted Resolved BENIGN HYPERTENSION [I10] MULTIPLE SCLEROSIS [G35] Depression [F32.9] INVALID FOR* Neurogenic bladder [N31.9] INVALID FOR* Recurrent UTI [N39.0] INVALID FOR* Chronic atrial fibrillation (HCC) [I48.2] INVALID FOR* More... History of pulmonary embolus (PE) [Z86.711] INVALID FOR* More... 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 posterior wall of urinary*INVALID FOR* More... Prescriptions ordered this encounter Disp Refills Start End DULOXETINE 30 MG CAPSULE,DELAYED REL* 90 c* 3 11/13/2017 Sig: TAKE 1 CAPSULE ONCE DAILY Medications Discontinued During This Encounter DULoxetine (CYMBALTA) 30 mg capsule 90 c* 3 11/26/2016 11/13/2017 Sig: TAKE 1 CAPSULE ONCE DAILY Disc: Reason for discontinue is not on file. Encounter Status:Closed by MELINDA DUCKWORTH III, MD on 11/13/17 PROGRESS Observed: 11/12/2017 Status: COMPLETED Source: [place] 11:11 AM [facility] REPOSITORY HNO ID: [id number] Author: Melinda Duckworth III Service: (none) Author Type: Physician Type: Progress Notes Filed: 11/12/2017 1:27 PM Note Text: SUBJECTIVE: This is a 62 year old male that is here today for hospital follow up. 1. 08/11/17: PE tx with TPA (saddle embolus). Complicated by atrial fib. On eliquis. 2. TCU stay for 50 days of rehab. Now able to self transfer 3. echocardiogram 11/04/17 report reviewed: EF 60%. Previous positive bubble test, but no comment of perforation of septum). 4. known bladder ca. Reviewed Dr Bernardo's note. Urine cytology neg. 5. sleep apnea on bipap. Awakens refreshed? 6. no chest pain, angina. He feels weak with exertion. Cardiology considering stress test in 3 mos 7. Uses Vyvance to improve alertness with benefit--prescribed by neurologist PAST MEDICAL HISTORY Diagnosis Date - Bladder cancer (HCC) - Chronic atrial fibrillation (HCC) 10/30/2017 - Chronic atrial fibrillation (HCC) 10/30/2017 on Eliquis - Essential hypertension, benign - Multiple sclerosis (HCC) primary progressive II - Recurrent UTI 02/21/2016 Current Outpatient Prescriptions on File Prior to Visit: Hydrochlorothiazide 12.5 mg capsule Take 1 capsule by mouth once daily. carvedilol (COREG) 12.5 mg tablet Take 1 tablet by mouth twice daily. apixaban (ELIQUIS) 5 mg tab tab(s) Take 1 tablet by mouth twice daily. carvedilol (COREG) 12.5 mg tablet Take 1 tablet by mouth twice daily. apixaban (ELIQUIS) 5 mg tab tab(s) Take 1 tablet by mouth twice daily. amLODIPine (NORVASC) 5 mg tablet Take 1 tablet by mouth once daily. lisinopril (ZESTRIL, PRINIVIL) 20 mg tablet TAKE 1 TABLET DAILY DULoxetine (CYMBALTA) 30 mg capsule TAKE 1 CAPSULE ONCE DAILY COMPOUNDED PRESCRIPTION Inflatable Emergency Lift Chair teriflunomide (AUBAGIO) 14 mg tab Take 1 tablet by mouth once daily. aspirin, enteric coated (ADULT LOW DOSE ASPIRIN) 81 mg EC tablet Take 1 tablet by mouth once daily. Cholecalciferol, Vitamin D3, 1,000 unit cap Take 1 capsule by mouth once daily. lisdexamfetamine (VYVANSE) 50 mg capsule Take 1 capsule by mouth once daily. bethanechol (URECHOLINE) 10 mg tablet Take 1 tablet by mouth three times daily. meclizine (ANTIVERT) 25 mg Tab Take 1 tablet by mouth three times daily. tiZANidine (ZANAFLEX) 4 mg tablet Take 1 tablet by mouth every 8 hours as needed (muscle spasms). DAILY MULTIVITAMIN TAB Take one(1) tablet daily. VITAMIN E 1,000 UNIT CAP Take one(1) tablet daily. No current facility-administered medications on file prior to visit. FAMILY HISTORY Problem Relation Age of Onset - Cancer Mother LUNG - Heart Father - Coronary Artery Disease Father - Hypertension Mother - Hypertension Father Social History Substance Use Topics - Smoking status: Never Smoker - Smokeless tobacco: Not on file - Alcohol use No BP 138/82 (BP Site: Right Arm, BP Position: Sitting, BP Cuff Size: Regular Adult) Pulse 72 Resp 12 Wt 108 kg (238 lb) BMI 27.5 kg/m2 . OBJECTIVE: APPEARANCE Well appearing, alert, in no acute distress, well-hydrated, well nourished., In wheelchair with weakness of the left upper and lower extremities. Good memory of events and answers all questions well. NECK Supple, no adenopathy; thyroid symmetric, normal size, no bruits HEART RRR with normal S1 and S2, no murmurs, no gallops, no JVD appreciated LUNG clear to auscultation EXTREMITIES no significant lower leg edema or calf tenderness ASSESSMENT: Multiple sclerosis?stable History of saddle pulmonary embolus?on Eliquis Recent onset of atrial fibrillation following hypoxia from pulmonary embolus?rate controlled and presently in regular rhythm Hypertension?at goal PLAN: healthy diet and stay active as able same medications follow up with specialists as appointed NATASHA Mckeon MD, III MD CNOV Observed: 11/12/2017 Status: COMPLETED Source: [place] 10:40 AM [facility] REPOSITORY Office Visit (FAMPWS) NERY MIDDLETON ([id number]) 1955 [place] Date Time Provider Department 11/12/17 10:40 AM MELINDA DUCKWORTH III During your visit today, we recorded the following information about you: Pulse Respiration Blood pressure Weight 72/minute 12/minute 138/82 108 kg Melinda Duckworth III MD 11/12/2017 1:27 PM Signed SUBJECTIVE: This is a 62 year old male that is here today for hospital follow up. 1. 08/11/17: PE tx with TPA (saddle embolus). Complicated by atrial fib. On eliquis. 2. TCU stay for 50 days of rehab. Now able to self transfer 3. echocardiogram 11/04/17 report reviewed: EF 60%. Previous positive bubble test, but no comment of perforation of septum). 4. known bladder ca. Reviewed Dr Bernardo's note. Urine cytology neg. 5. sleep apnea on bipap. Awakens refreshed? 6. no chest pain, angina. He feels weak with exertion. Cardiology considering stress test in 3 mos 7. Uses Vyvance to improve alertness with benefit--prescribed by neurologist PAST MEDICAL HISTORY Diagnosis Date - Bladder cancer (HCC) - Chronic atrial fibrillation (HCC) 10/30/2017 - Chronic atrial fibrillation (HCC) 10/30/2017 on Eliquis - Essential hypertension, benign - Multiple sclerosis (HCC) primary progressive II - Recurrent UTI 02/21/2016 Current Outpatient Prescriptions on File Prior to Visit: Hydrochlorothiazide 12.5 mg capsule Take 1 capsule by mouth once daily. carvedilol (COREG) 12.5 mg tablet Take 1 tablet by mouth twice daily. apixaban (ELIQUIS) 5 mg tab tab(s) Take 1 tablet by mouth twice daily. carvedilol (COREG) 12.5 mg tablet Take 1 tablet by mouth twice daily. apixaban (ELIQUIS) 5 mg tab tab(s) Take 1 tablet by mouth twice daily. amLODIPine (NORVASC) 5 mg tablet Take 1 tablet by mouth once daily. lisinopril (ZESTRIL, PRINIVIL) 20 mg tablet TAKE 1 TABLET DAILY DULoxetine (CYMBALTA) 30 mg capsule TAKE 1 CAPSULE ONCE DAILY COMPOUNDED PRESCRIPTION Inflatable Emergency Lift Chair teriflunomide (AUBAGIO) 14 mg tab Take 1 tablet by mouth once daily. aspirin, enteric coated (ADULT LOW DOSE ASPIRIN) 81 mg EC tablet Take 1 tablet by mouth once daily. Cholecalciferol, Vitamin D3, 1,000 unit cap Take 1 capsule by mouth once daily. lisdexamfetamine (VYVANSE) 50 mg capsule Take 1 capsule by mouth once daily. bethanechol (URECHOLINE) 10 mg tablet Take 1 tablet by mouth three times daily. meclizine (ANTIVERT) 25 mg Tab Take 1 tablet by mouth three times daily. tiZANidine (ZANAFLEX) 4 mg tablet Take 1 tablet by mouth every 8 hours as needed (muscle spasms). DAILY MULTIVITAMIN TAB Take one(1) tablet daily. VITAMIN E 1,000 UNIT CAP Take one(1) tablet daily. No current facility-administered medications on file prior to visit. FAMILY HISTORY Problem Relation Age of Onset - Cancer Mother LUNG - Heart Father - Coronary Artery Disease Father - Hypertension Mother - Hypertension Father Social History Substance Use Topics - Smoking status: Never Smoker - Smokeless tobacco: Not on file - Alcohol use No BP 138/82 (BP Site: Right Arm, BP Position: Sitting, BP Cuff Size: Regular Adult) Pulse 72 Resp 12 Wt 108 kg (238 lb) BMI 27.5 kg/m2 . OBJECTIVE: APPEARANCE Well appearing, alert, in no acute distress, well- hydrated, well nourished., In wheelchair with weakness of the left upper and lower extremities. Good memory of events and answers all questions well. NECK Supple, no adenopathy; thyroid symmetric, normal size, no bruits HEART RRR with normal S1 and S2, no murmurs, no gallops, no JVD appreciated LUNG clear to auscultation EXTREMITIES no significant lower leg edema or calf tenderness ASSESSMENT: Multiple sclerosis?stable History of saddle pulmonary embolus?on Eliquis Recent onset of atrial fibrillation following hypoxia from pulmonary embolus?rate controlled and presently in regular rhythm Hypertension?at goal PLAN: healthy diet and stay active as able same medications follow up with specialists as appointed NATASHA Mckeon MD, III MD Frank A Cebul, III MD 11/12/2017 11:31 AM Signed PLAN: healthy diet and stay active as able same medications follow up with specialists as appointed Melinda Duckworth III MD Referring Provider: SELF [200] Allergies As of Date: 11/12/2017 Noted Allergy Reaction BEES 10/14/2005 Date Reviewed: 11/12/2017 Reviewed by: Alix Jenkins Clinical Research Nurse - Fully Assessed Reason for Visit: Hospital Follow Up [177] Primary Visit Diagnosis:Chronic atrial fibrillation (HCC) [I48.2] Other Visit Diagnoses:Multiple sclerosis (HCC) [G35] Essential hypertension, benign [I10] History of pulmonary embolus (PE) [Z86.711] 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] Prescriptions as of 11/12/2017 Sig: HYDROCHLOROTHIAZIDE 12.5 MG C* Take 1 capsule by mouth once * CARVEDILOL 12.5 MG TABLET Take 1 tablet by mouth twice * APIXABAN 5 MG TABLET Take 1 tablet by mouth twice * CARVEDILOL 12.5 MG TABLET Take 1 tablet by mouth twice * APIXABAN 5 MG TABLET Take 1 tablet by mouth twice * AMLODIPINE 5 MG TABLET Take 1 tablet by mouth once d* LISINOPRIL 20 MG TABLET TAKE 1 TABLET DAILY DULOXETINE 30 MG CAPSULE,MERLE* TAKE 1 CAPSULE ONCE DAILY COMPOUNDED PRESCRIPTION Inflatable Emergency Lift Bel* TERIFLUNOMIDE 14 MG TABLET Take 1 tablet by mouth once d* ASPIRIN 81 MG TABLET,DELAYED * Take 1 tablet by mouth once d* CHOLECALCIFEROL (VITAMIN D3) * Take 1 capsule by mouth once * LISDEXAMFETAMINE 50 MG CAPSULE Take 1 capsule by mouth once * BETHANECHOL CHLORIDE 10 MG TA* Take 1 tablet by mouth three * MECLIZINE 25 MG TABLET Take 1 tablet by mouth three * TIZANIDINE 4 MG TABLET Take 1 tablet by mouth every * DAILY MULTIVITAMIN TABLET Take one(1) tablet daily. VITAMIN E 1,000 UNIT CAPSULE Take one(1) tablet daily. Problem List As Of Date 11/12/2017 Noted Resolved BENIGN HYPERTENSION [I10] MULTIPLE SCLEROSIS [G35] Depression [F32.9] INVALID FOR* Neurogenic bladder [N31.9] INVALID FOR* Recurrent UTI [N39.0] INVALID FOR* Chronic atrial fibrillation (HCC) [I48.2] INVALID FOR* More... History of pulmonary embolus (PE) [Z86.711] INVALID FOR* More... 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 posterior wall of urinary*INVALID FOR* More... Other instructions from your clinician: PLAN: healthy diet and stay active as able same medications follow up with specialists as appointed Melinda Duckworth III MD Encounter Status:Closed by MELINDA DUCKWORTH III, MD on 11/12/17 ALLERGIES ALLERGIES DATE TYPE / CODE NAME / CODE REACTION SEVERITY SOURCE 10/21/2018 Drug No Known Unknown [place] [facility] Allergy/416 Allergies/B78507 Hospital 344107(SNOM 0388(RXNORM) Repository ED CT) 10/14/2005 Environ/420 BEES [facility] 617257(SNOM [facility] [place] [facility]) Repository Drug NO KNOWN [facility] Class/40005 ALLERGIES [facility] [place] 1003(SNOMED Repository CT) ENCOUNTERS ENCOUNTERS ADMIT/DISCHARGE ACCOUNT ADMITTING ENCOUNTER LOCATION SOURCE NUMBER CLASS 10/21/2018 [id number] Ambulatory [facility] ing:MEDOUT Repository 09/30/2018/09/30/20 [id number] Ambulatory BMSBuilding:B [place] 18 MS.[facility] Repository 09/24/2018/09/25/20 [id number] Ambulatory [address] Repository 09/23/2018/09/23/20 [id number] Ambulatory [address] Repository 06/29/2018/06/29/20 [id number] Ambulatory BMSBuilding:B [place] 18 MS.[facility] Repository 06/24/2018 [id number] Ambulatory BMSBuilding:[place] Repository 06/04/2018/06/05/20 [id number] Ambulatory [address] Repository 05/28/2018/06/01/20 [id number] [place], Inpatient [place] 18 [place] Encounter [facility] ing:PCURoom: Repository [id number]: 1 05/28/2018 [id number] [facility] BMSBuilding:[place] Ghasem MS.[facility] Repository 05/28/2018/06/01/20 [id number] Ambulatory BMSBuilding:B [place] 18 MS.CF.[facility] Repository 05/28/2018 [id number] [facility], Ambulatory BMSBuilding:[place] Ghasem MS.[facility] Repository 05/28/2018 [id number] [facility], Ambulatory BMSBuilding:[place] Ghasem MS.[facility] Repository 05/28/2018 [id number] [place], Ambulatory BMSBuilding:Demetris Byrne MS.[facility] Repository 05/28/2018 [id number] Ambulatory BMSBuilding:Demetris [place] MS.[facility] Repository 05/06/2018 [id number] Ambulatory [facility] ing:LABSPEC Repository 04/17/2018 [id number] Ambulatory [facility] Hospital ing:MEDOUTP Repository 02/25/2018/02/26/20 [id number] Ambulatory BMSBuilding:Demetris Hilton 18 MS.[facility] Repository 02/12/2018/02/13/20 [id number] Ambulatory [address] Repository 02/12/2018/02/14/20 [id number] Ambulatory [address] Repository 01/21/2018 [id number] Ambulatory BMSBuilding:Aren Hilton [facility] Repository 01/21/2018 [id number] Ambulatory [facility] Hospital ing:CVS Repository 01/14/2018/01/14/20 [id number] Ambulatory BMSBuilding:Demetris Hilton 18 MS.[facility] Repository 12/15/2017/12/15/19 [id number] Ambulatory BMSBuilding:Demetris Hilton 18 MS.[facility] Repository 11/12/2017/11/12/20 [id number] Ambulatory [address] Repository PAYERS PAYERS ENCOUNTER GUARANTOR PAYER SUBSCRIBER SOURCE 10/21/2018 NERY M Primary NERY M [place] [id number] Insurance:MEDICARE YENSHODOB: [facility] PART A [place]olic [id number] Repository [id number]: [phone] [id number] [phone] () Date:2018-09-11 10/21/2018 Secondary NERY M [place] Insurance:AULTCAREPol YENSHODOB: [facility] Number: [id number] Hospital [id number] Repository Date:[id number] [address] [place] [id number]: 10/21/2018 Tertiary NOT GIVENUNK [place] Insurance:SELF PAY [facility] Effective Repository Date:2018-09-11 09/30/2018 NERY M Primary NERY M [place] [id number] Insurance:MEDICARE YENSHODOB: [facility] [id number] Number: Repository [id number]: 330 [id number] [phone] () Date:2018-02-25 09/30/2018 Secondary NERY M [place] Insurance:AULTCAREPol YENSHODOB: [facility] icy Number: [id number] Hospital [id number] Repository Date:[id number] [address]PF: 09/30/2018 Tertiary NOT GIVENUNK [place] Insurance:SELF PAY [facility] Number: Effective Repository Date:2018-09-22 06/29/2018 NERY M Primary NERY M [place] [id number] Insurance:MEDICARE YENSHODOB: [facility] [id number] Number: Repository [id number]: 330 [id number] [phone] () Date:2018-06-03 06/29/2018 Secondary NERY M [place] Insurance:AULTCAREPol YENSHODOB: [facility] icy Number: [id number] Hospital [id number] Repository Date:[id number] [address]LP: 06/29/2018 Tertiary NOT GIVENUNK [place] Insurance:SELF PAY [facility] Number: Effective Repository Date:2018-06-29 06/24/2018 NERY M Primary NERY M [place] [id number] Insurance:MEDICARE YENSHODOB: [facility] [id number] Number: Repository [address]Ftn: 330 [id number] [phone] () Date:2018-06-24 06/24/2018 Secondary NERY M [place] Insurance:AULTCAREPol YENSHODOB: Community icy Number: [id number] Hospital [id number] Repository Date:[id number] [address] [place] [phone]: 06/24/2018 Tertiary NOT GIVENUNK [place] Insurance:SELF PAY [facility] Number: Effective Repository Date:2018-06-24 05/28/2018 NERY M Primary NERY M [place] [id number] Insurance:MEDICARE YENSHODOB: [facility] [id number] Number: Repository [address]Gjl: 330 [id number] [phone] () Date:2018-05-28 05/28/2018 Secondary NERY M [place] Insurance:AULTCAREPol YENSHODOB: [facility] icy Number: [id number] Hospital [id number] Repository Date:[id number] [address] [place] [phone]: 05/28/2018 Tertiary NOT GIVENUNK [place] Insurance:SELF PAY [facility] Number: Effective Repository Date:2018-05-28 05/28/2018 NEYR M Primary NERY M [place] [id number] Insurance:MEDICARE YENSHODOB: [facility] [id number] Number: Repository [id number]: 330 [id number] [phone] () Date:2018-05-28 05/28/2018 Secondary NERY M [place] Insurance:AULTCAREPol YENSHODOB: [facility] icy Number: [id number] Hospital [id number] Repository Date:[id number] [address], [place] [address]HY: 05/28/2018 Tertiary NOT GIVENUNK [place] Insurance:SELF PAY [facility] Number: Effective Repository Date:2018-05-28 05/28/2018 NERY M Primary NERY M [place] [id number] Insurance:MEDICARE YENSHODOB: [facility] [id number] Number: Repository [id number]: 330 [id number] [phone] () Date:2018-05-28 05/28/2018 Secondary NERY M [place] Insurance:AULTCAREPol YENSHODOB: [facility] icy Number: [id number] Hospital [id number] Repository Date:8123-77-51WV [address] [place] [id number]: 05/28/2018 Tertiary NOT GIVENUNK [place] Insurance:SELF PAY [facility] [place] Number: Effective Repository Date:2018-05-28 05/28/2018 NERY M Primary NERY M [place] [id number] Insurance:MEDICARE YENSHODOB: [id number] [place] Number[place] Repository [id number]: 330 [id number] [phone] () Date:2018-05-28 05/28/2018 Secondary NERY M [place] Insurance:AULTCAREPol YENSHODOB: [facility] icy Number: [id number] Hospital [id number] Repository Date:0425-17-69EP [address] [place] [phone]: 05/28/2018 Tertiary NOT GIVENUNK [place] Insurance:SELF PAY [facility] [place] Number: Effective Repository Date:2018-05-28 05/28/2018 NERY M Primary NERY M [place] [id number] Insurance:MEDICARE YENSHODOB: [facility] [id number] Number: Repository [id number]: 330 [id number] [phone] () Date:2018-05-28 05/28/2018 Secondary NERY M [place] Insurance:AULTCAREPol YENSHODOB: Community icy Number: [id number] Hospital [id number] Repository Date:1700-47-88IV[address] [phone]: 05/28/2018 Tertiary NOT GIVENUNK [place] Insurance:SELF PAY [facility] [place] Number: Effective Repository Date:2018-05-28 05/28/2018 NERY M Primary NERY M [place] [id number] Insurance:MEDICARE YENSHODOB: [facility] [id number] Number[place] Repository [id number]: [phone] [id number] [phone] () Date:2018-05-28 05/28/2018 Secondary NERY M [place] Insurance:AULTCAREPol YENSHODOB: [facility] icy Number: [id number] Hospital [id number] Repository Date:[id number] [address]AL: 05/28/2018 Tertiary NOT GIVENUNK [place] Insurance:SELF PAY [facility] [place] Number: Effective Repository Date:2018-05-28 05/28/2018 NERY M Primary NERY M [place] [id number] Insurance:MEDICARE YENSHODOB: [facility] [id number] Number[place] Repository [id number]: 330 [id number] [phone] () Date:2017-11-04 05/28/2018 Secondary NERY M [place] Insurance:AULTCAREPol YENSHODOB: [facility] icy Number: [id number] Hospital [id number] Repository Date:0014-38-42RK [address] [address]UQ: 05/28/2018 Tertiary NOT GIVENUNK [place] Insurance:SELF PAY [facility] [place] Number: Effective Repository Date:2017-11-04 05/06/2018 NERY M Primary NERY M [place] [id number] Insurance:MEDICARE YENSHODOB: [facility] [id number] Number[place] Repository [id number]: 330 [id number] [phone] () Date:2018-05-06 05/06/2018 Secondary NERY M [place] Insurance:AULTCAREPol YENSHODOB: [facility] icy Number: [id number] Hospital [id number] Repository Date:4091-36-69JJ [address] [place] [address]UC: 05/06/2018 Tertiary NOT GIVENUNK [place] Insurance:SELF PAY [facility] [place] Number: Effective Repository Date:2018-05-06 04/17/2018 NERY M Primary NERY M [place] [id number] Insurance:MEDICARE YENSHODOB: [facility] [id number] Number[place] Repository [id number]: 330 [id number] [phone] () Date:2018-04-07 04/17/2018 Secondary NERY M [place] Insurance:AULTCAREPol YENSHODOB: [facility] icy Number: [id number] Hospital [id number] Repository Date:1792-71-37OV [address] [place] [address]NT: 04/17/2018 Tertiary NOT GIVENUNK [place] Insurance:SELF PAY [facility] [place] Number: Effective Repository Date:2018-04-07 02/25/2018 NERY M Primary NERY M [place] [id number] Insurance:MEDICARE YENSHODOB: [facility] [id number] Number[place] Repository [address]Xrv: 330 [id number] [phone] () Date:2018-01-14 02/25/2018 Secondary NERY M [place] Insurance:AULTCAREPol YENSHODOB: [facility] icy Number: [id number] Hospital [id number] Repository Date:2669-49-84BC [address] [place] [phone]: 02/25/2018 Tertiary NOT GIVENUNK [place] Insurance:SELF PAY [facility] [place] Number: Effective Repository Date:2018-02-23 01/21/2018 NERY M Primary NERY M [place] [id number] Insurance:MEDICARE YENSHODOB: [facility] [id number] Number[place] Repository [address]Ace: 330 [id number] [phone] () Date:2017-11-04 01/21/2018 Secondary NERY M [place] Insurance:AULTCAREPol YENSHODOB: [facility] icy Number: [id number] Hospital [id number] Repository Date:5988-01-12OI [address] [place] [address]GO: 01/21/2018 Tertiary NOT GIVENUNK [place] Insurance:SELF PAY [facility] [place] Number: Effective Repository Date:2018-01-21 01/21/2018 NERY M Primary NERY M [place] [id number] Insurance:MEDICARE YENSHODOB: [facility] [id number] Number[place] Repository [address]Mia: 330 [id number] [phone] () Date:2017-11-04 01/21/2018 Secondary NERY M [place] Insurance:AULTCAREPol YENSHODOB: [facility] icy Number: [id number] Hospital [id number] Repository Date:5555-51-05VM [address] [place] [address]HD: 01/21/2018 Tertiary NOT GIVENUNK [place] Insurance:SELF PAY [facility] [place] Number: Effective Repository Date:2017-11-04 01/14/2018 NERY M Primary NERY M [place] [id number] Insurance:MEDICARE YENSHODOB: [facility] [id number] Number[place] Repository [id number]: 330 [id number] [phone] () Date:2017-12-15 01/14/2018 Secondary NERY M [place] Insurance:AULTCAREPol YENSHODOB: Community icy Number: [id number] [id number] Repository Date:3726-11-46[facility] [address] [place] [address]NX: 01/14/2018 Tertiary NOT GIVENUNK [place] Insurance:SELF PAY [facility] [place] Number: Effective Repository Date:2017-12-15 12/15/2017 NERY M Primary NERY M [place] [id number] Insurance:MEDICARE YENSHODOB: [facility] PART A [facility] [id number] Number[place] Repository [id number]: 330 [id number] [phone] () Date:2017-11-18 12/15/2017 Secondary NERY M [place] Insurance:AULTCAREPol YENSHODOB: [facility] icy Number: [id number] [facility] [id number] Repository Date:8049-79-15RU [address] [place] [id number]: 12/15/2017 Tertiary NOT GIVENUNK [place] Insurance:SELF PAY [facility] [place] Number: Effective Repository Date:2017-11-18
== END ==
PROVIDERS: Family Provider Family Medicine; PCP Family Medicine
DX: G35 Multiple sclerosis (principal)
CPT/HCPCS: 96365; 96366 ×4; 96374; 96375; J7040; A4216; J2350

== ENCOUNTER → 2019-04-16 | Outpatient (CLI) | payer MEDICARE, OTHER, SELFPAY ==
[2019-01-08 13:54] VITALS: BMI 28.8
[2019-03-31 09:21] VITALS: BMI 28.8
[2019-04-16 08:14] VITALS: BP 112/73; PULSE 90; RESP 18; TEMP 36.6; O2SAT 95; BMI 28.8
[2019-04-16] MEDS: Acetaminophen 500 MG Tablet 1000 MG PO (10:12)
[2019-04-16] MEDS: DiphenhydrAMINE 50 MG/ML Syringe 25 MG IV (10:13)
[2019-04-16] MEDS: MethylPREDNISolone 125 MG/2 ML Vial 100 MG IV (10:24)
[2019-04-16] MEDS: Ocrelizumab 600mg Infusion 40 MG IV (11:01)
[2019-04-16 12:00] VITALS: BP 109/75; PULSE 88; RESP 16
[2019-04-16 12:35] VITALS: BP 101/72; PULSE 93; RESP 16; O2SAT 93
[2019-04-16 13:12] VITALS: BP 112/64
[2019-04-16 14:46] VITALS: BP 113/85; PULSE 96; RESP 16
== END | disposition home or self-care (01) ==
LOC: MEDOUTP 07:45
PROVIDERS: Family Provider Family Medicine; PCP Family Medicine; Referring Provider Psychiatry & Neurology Sleep Medicine; Visit Provider Psychiatry & Neurology Sleep Medicine
DX: G35 Multiple sclerosis (principal)
CPT/HCPCS: 96365; 96366 ×3; 96374; 96375; J7040; J7050; A4216; J2350

== ENCOUNTER 2019-05-11 21:44 | Inpatient (IN) | payer MEDICARE, OTHER, SELFPAY ==
[2019-04-16 08:14] VITALS: BMI 28.8
[2019-05-11 21:45] VITALS: BP 94/67; PULSE 79; RESP 28; TEMP 36.6; O2SAT 88; BMI 31.1
--- NOTE | 2019-05-11 21:50 | EKG12_ITS ---
Test Reason : Blood Pressure : / mmHG Vent. Rate : 079 BPM Atrial Rate : 079 BPM P-R Int : 192 ms QRS Dur : 084 ms QT Int : 380 ms P-R-T Axes : 038 -42 061 degrees QTc Int : 435 ms Normal sinus rhythm Left axis deviation Abnormal ECG Confirmed by STEVE MURPHY ([id number]), production editor TRACIE MUÑOZ ([id number]) on 05/17/2019 10:19:57 AM Referred By: TL Confirmed By:STEVE MURPHY
[2019-05-11 21:52] VITALS: O2SAT 94
--- NOTE | 2019-05-11 21:52 | ED.DCSUM_ITS ---
History of Present Illness Chief Complaint: Syncope Informant: Patient, Family Onset: Today Narrative: Brought by EMS from home for syncopal episode witnessed by family. Patient with history of MS, nonambulatory with left-sided weakness and paresthesia secondary to this. Reports not feeling well throughout the day. Denies chest pain or cough. States had nausea symptoms. No vomiting. Patient has urine incontinence due to MS. History of bladder cancer. He said UTIs in the past however no syncopal episodes. Reports did cease lights along with feeling lightheaded prior to his syncopal episode however he was sitting in his wheelchair. Denies chest pains or palpitations. History of PE in the past on Eliquis. History of paroxysmal atrial fibrillation. EMS gave fluids and 4 mg of Zofran. EKG reviewed from EMS was normal. Prior similar symptoms: No Past Medical History - Allergies and Home Meds Allergies/Adverse Reactions: Allergies No Known Allergies Allergy (Verified 04/16/19 10:29) Primary Care Physician: Amanuel Duckworth III, MD [Primary Care Provider] - Surgical History: - - colonoscopy. Smoking Status: Former smoker - Family History Paternal Family History: Family History (Last Reviewed 03/31/19 @ 10:01 by ANNELISE Joseph) Father CAD (coronary artery disease) Hypertension Myocardial infarction Mother Hypertension Sister Multiple sclerosis Family History: Reports: Hypertension Sibling Family History: Family History (Last Reviewed 03/31/19 @ 10:01 by ANNELISE Joseph) Father CAD (coronary artery disease) Hypertension Myocardial infarction Mother Hypertension Sister Multiple sclerosis Family History: Reports: - - Sister with history of MS and due to a pulmonary embolism Maternal Family History: Family History (Last Reviewed 03/31/19 @ 10:01 by ANNELISE Joseph) Father CAD (coronary artery disease) Hypertension Myocardial infarction Mother Hypertension Sister Multiple sclerosis Family History: Reports: No pertinent history Review of Systems General: Denies: Chills, Fever, Sweats Eyes: Denies: Visual changes - bilaterally, Diplopia ENT: Denies: Rhinorrhea, Sore throat Cardiovascular: Denies: Chest pain, Palpitations Respiratory: Denies: Dyspnea, Cough, Dyspnea on exertion Gastrointestinal: Denies: Abdominal pain, Nausea, Vomiting, Diarrhea, Melena, Hematochezia Genitourinary: Denies: Dysuria, Hematuria, Frequency Musculoskeletal: Denies: Back pain, Extremity Pain Skin: Denies: Rash, Wounds Neurological: Denies: Headache, Weakness, Numbness Physical Exam Vital Signs/Narrative: Vital Signs Temp Pulse Resp BP Pulse Ox 05/11/19 21:45 97.8 F 79 28 H 94/67 88 Inital Vital Signs reviewed: Yes General: Well nourished, Well developed, No Acute Distress Head: Normocephalic, Atraumatic Eyes: Perrl, EOMI ENT: Moist mucous membranes, No rhinorrhea Neck: Supple, Nontender Cardiovascular: Regular rate, Regular rhythm, No murmurs Respiratory: No distress, CTA bilaterally, Chest nontender Abdomen: Soft, Nontender, Nondistended, Normal bowel sounds Back: Nontender, Normal Inspection Extremities: Nontender, No edema, - - Left arm and leg weakness with paresthesias, chronic Skin: Normal color, No rash Neurological: Alert, Oriented x3, Cranial nerves II-XII grossly intact Psychological: Normal affect, Normal Mood Diagnostic/Tx/Re-eval Chest X-Ray - ED: 1 View, Read by Radiologist, - - No acute lung process per radiology, questioning bowel obstruction due to distention of bowels. Abnormal Lab Results 05/11/19 05/11/19 05/11/19 21:54 21:54 21:54 WBC 9.0 RBC 5.12 Hgb 15.3 Hct 45.4 MCV 88.7 MCH 29.9 MCHC 33.7 RDW 13.1 RDW Differential 42.6 Plt Count 180 MPV 9.9 Immature Gran % (Auto) 0.300 Neut % (Auto) 73.1 H Lymph % (Auto) 13.2 L [place] % (Auto) 10.8 H Eos % (Auto) 2.4 Baso % (Auto) 0.2 Absolute Neuts (auto) 6.6 Absolute Lymphs (auto) 1.19 Total Counted Not Reportable Sodium 142 Potassium 3.4 L Chloride 110 H Carbon Dioxide 24.0 Anion Gap 8 BUN 25 H Creatinine 1.25 Estim Creat Clear Calc 80.23 Est GFR (MDRD) Af Amer 75 Est GFR (MDRD) Non-Af 62 BUN/Creatinine Ratio 20.0 Glucose 106 Calcium 8.2 L Urine Color Yellow Urine Clarity Cloudy Urine pH 7.0 Ur Specific [place] 1.010 Urine Protein 30 H Urine Glucose (UA) Normal Urine Ketones Negative Urine Occult Blood 50 H Urine Nitrite Positive H Urine Bilirubin Negative Urine Urobilinogen Normal Ur Leukocyte Esterase 500 H Urine RBC 0-5 SEEN Urine WBC >100 SEEN Ur Squamous Epith Cells 0-5 SEEN Urine Bacteria 2+ Urine Mucus 0 SEEN - EKG Initial EKG Interpretation: Sinus Rhythm - Sinus rate of 79, no ST changes. QTc 435. - Medical Decision Making Patient nontoxic afebrile. Vital signs stable blood pressure systolic 90s with a map greater than 65. Continue IV fluids, work-up initiated. EKG shows no acute changes. Labs normal white count creatinine stable. Urine did note signs of infection urine sent. He is currently 0 out of 4 Sirs criteria. Recheck blood pressure systolic in 80s map was still greater than 65. I did continue IV fluid bolus, he was given Rocephin for his UTI. After 1/2 L of fluid, blood pressure 90/57 with a map of 68. Radiology read chest x-ray negative for lung pathology, however had concerns for possible bowel obstruction in the right clinical setting. He has no abdominal pain. He is not vomiting. Discussed with hospitalist, Dr. Arrieta for admission to stepdown for syncopal episode with UTI with borderline blood pressure. Did discuss patient's hypoxia responding oxygen he takes Eliquis twice a day without missed doses per family. Per hospitalist, will add blood cultures and lactate for further evaluation. ED Disposition - Plan for ED Patient: Disposition: [facility] Diagnosis: Syncope, UTI (urinary tract infection) Referrals: Amanuel Duckworth III, MD [Primary Care Provider] -
--- NOTE | 2019-05-11 21:55 | RAD_ITS ---
STUDY: X-RAY CHEST REASON FOR EXAM: Male, 63 years old. Syncope. TECHNIQUE: Portable chest. COMPARISON: 09/14/2017. FINDINGS: There is chronic elevation of the left hemidiaphragm, with mild atelectasis in the left lung base. Normal size heart. Normal mediastinum and romi. Normal visualized pulmonary arteries. Normal visualized aortic arch and descending thoracic aorta. Normal visualized thoracic spine. Normal visualized ribs, clavicles, and shoulders. There is dilation of the visualized small and large bowel in the abdomen, concerning for obstruction. RAD/Chest 1 View (Portable) IMPRESSION: 1. Question bowel obstruction. Consider CT of the abdomen for further evaluation if clinically warranted. 2. Atelectasis consistent with chronic elevation of the left hemidiaphragm. Otherwise, negative chest. Electronically Signed: Neisha Pool MD at 22:24 EDT Tel , Service support ,
[2019-05-11] MEDS: 0.9% Normal Saline 1,000 ML 150 ML IV (21:59)
[2019-05-11 22:05] LABS: Mucous, Urine 0 SEEN /hpf (<or=2+)
[2019-05-11 22:13] LABS: Color, Urine Yellow (Yellow); Glucose, Dipstick Normal (Normal); Ketone-Dipstick Negative (Negative); Leukocyte Esterase-Dipstick 500 /ul (Negative); Nitrite-Dipstick Positive (Negative); Occult Blood-Urine 50 /ul (Negative); Protein-Dipstick 30 mg/dl (Negative); Urine Bilirubin Dipstick Negative (Negative); Urine Clarity Cloudy (Clear); Urine Urobilinogen Normal (Normal)
[2019-05-11 22:15] LABS: Absolute Lymphocyte Count 1.19 X10^3/ul (0.83-4.51); Absolute Neutrophil Count 6.6 X10^3/uL (2.0-7.7); Basophil# 0.02 X10^3/uL; Basophil% 0.2 % (0-1); Eosinophil# 0.22 X10^3/uL; Eosinophils% 2.4 % (0-5); Hematocrit 45.4 % (40-54); Hemoglobin 15.3 g/dl (13.0-16.5); Lymphocyte # 1.19 X10^3/ul (4.0); Lymphocyte % 13.2 % (19-41); Mean Corp Hgb Conc 33.7 g/gl (32-36); Mean Corpuscular Hgb 29.9 pg (27.0-32.0); Mean Corpuscular Volume 88.7 fL (80-94); Mean Platelet Vol. 9.9 fl (6.2-12.0); Monocyte# 0.97 X10^3/uL; Monocyte% 10.8 % (0-10); Neutrophil # 6.58 X10^3/uL (2.7-7.7); Neutrophil % 73.1 % (47-70); POSITIVE COUNT NO; POSITIVE DIFFERENTIAL NO; POSITIVE MORPHOLOGY NO; Platelet Count 180 K/mm3 (150-450); RBC Distribution Width CV 13.1 % (11.6-14.6); RBC Distribution Width SD 42.6 fl (35.1-43.9); Red Blood Count 5.12 M/mm3 (4.6-6.2)
[2019-05-11 22:20] LABS: Bacteria 2+ /hpf (None Seen); Red Blood Cells-Urine 0-5 SEEN /hpf (0-5); Squamous Epithelial Cells - UA 0-5 SEEN /hpf (0-5); White Blood Cells >100 SEEN /hpf (0-5)
[2019-05-11 22:22] LABS: Anion Gap 8 (5-15); BUN 25 mg/dL (7-18); Calcium,Total 8.2 mg/dL (8.5-10.1); Chloride 110 mmol/L (98-107); Creatinine, Serum 1.25 mg/dL (0.70-1.30); EST Glomerular Filtration Rate 62 mL/min (>60); Est Glom Filt Rate - Afr Amer 75 mL/min (>60); Estimated Creatinine Clearance 80.23 ml/min; Glucose 106 mg/dL (74-106); Potassium 3.4 mmol/L (3.5-5.1); Sodium Level 142 mmol/L (136-145)
[2019-05-11] MEDS: Ceftriaxone 1 GM/50 ML BAG IV (22:28)
[2019-05-11] MEDS: 0.9% Normal Saline 1,000 ML 999 ML IV (22:31)
[2019-05-11 22:44] VITALS: BP 88/56; PULSE 78; RESP 18; O2SAT 91
--- NOTE | 2019-05-11 22:44 | PCM.HP.STD ---
Problem List (1) Cystitis Status: Acute (2) Syncope Status: Acute (3) Hypotension Status: Acute (4) Acute respiratory insufficiency Status: Acute (5) Obstructive sleep apnea Status: Chronic History of Present Illness Date of Admission: 05/11/19 Chief Complaint: syncope The patient is a 63 year old M with a significant history of paroxysmal A. fib; pulmonary embolism; bladder cancer; hypertension; multiple sclerosis who presented to the emergency department because of syncopal episode while sitting down. Associated with her symptoms is lightheadedness; generalized weakness and malaise. Patient felt warm and then passed out. At the emergency department his urine was abnormal. Reportedly, patient has had multiple urinary tract infection; and kidney stones but because of his history of multiple sclerosis he did not have any symptoms of dysuria. At the ED, Patient was found to have low oxygen saturation. Per his family any time the patient has urinary tract infection he has low oxygen saturation. At emergency department patient was noted to have hypotension for which he received IV bolus. Past Medical History Past Medical History (Chronic Problems): Chronic Problems (Last Reviewed 05/12/19 @ 02:15 by Torin Arrieta MD) Hyperlipidemia (Chronic) Abnormal EKG (Chronic) Obstructive sleep apnea (Chronic) Paroxysmal atrial fibrillation (Chronic) Atrial septal defect (Chronic) Multiple sclerosis (Chronic) Pulmonary embolism (Chronic) Hypertension (Chronic) Medical History: Medical History (Last Reviewed 05/12/19 @ 02:15 by Torin Arrieta MD) Hyperlipidemia (Chronic) E78.5 Abnormal EKG (Chronic) R94.31 Obstructive sleep apnea (Chronic) G47.33 Paroxysmal atrial fibrillation (Chronic) I48.0 Atrial septal defect (Chronic) Q21.1 Multiple sclerosis (Chronic) G35 Bladder cancer (Resolved) Pulmonary embolism (Chronic) I26.99 Hypertension (Chronic) I10 Kidney stones N20.0 Atrial fibrillation with RVR (Resolved) I48.91 Allergies No Known Allergies Allergy (Verified 04/16/19 10:29) Home Medications: Ambulatory Orders Medication Instructions Recorded Lisdexamfetamine Dimesylate 50 mg PO DAILY cap 08/29/17 [Vyvanse] Vitamin E (Dl,Tocopheryl Acet) 400 units PO DAILY 09/14/17 [Vitamin E] meclizine 25 mg tablet 25 mg PO PRN PRN 11/04/17 ocrelizumab 30 mg/mL intravenous 600 mg IV .COMPLEX 11/04/17 solution tizanidine 4 mg capsule 4 mg PO Q8H PRN 11/04/17 albuterol sulfate 2.5 mg/3 mL 2.5 mg INHALATION Q4H PRN #180 vial 03/04/18 (0.083 %) solution for nebulization Apixaban [Eliquis] 5 mg PO BID 05/28/18 Cholecalciferol (VIT D3) [Vitamin 5,000 unit PO DAILY 05/28/18 D3] Duloxetine Hcl [Cymbalta] 30 mg PO DAILY 05/28/18 Multivitamins,Therapeutic 1 tab PO DAILY 05/28/18 [Multivitamin] lisinopril 40 mg tablet 40 mg PO QDAY 06/29/18 hydrochlorothiazide 25 mg tablet 25 mg PO DAILY 01/08/19 carvedilol 12.5 mg tablet 12.5 mg PO BID #180 tab 02/12/19 pantoprazole 40 mg tablet,delayed 40 mg PO BID #60 tab 03/10/19 release simvastatin 20 mg tablet 20 mg PO QHS #90 tab 04/09/19 Surgical History: Surgical History (Last Reviewed 05/12/19 @ 02:15 by Torin Arrieta MD) History of vasectomy Z98.52 ureteroscopy Surgical History: - - colonoscopy. Psychiatric History: No pertinent psych hx Lives: With Family Smoking Status: Never smoker Alcohol: None - *Family History Paternal Family History: Family History (Last Reviewed 05/12/19 @ 02:15 by Torin Arrieta MD) Father CAD (coronary artery disease) Hypertension Myocardial infarction Mother Hypertension Sister Multiple sclerosis History Items: Hypertension Sibling Family History: Family History (Last Reviewed 05/12/19 @ 02:15 by Torin Arrieta MD) Father CAD (coronary artery disease) Hypertension Myocardial infarction Mother Hypertension Sister Multiple sclerosis History Items: - - Sister with history of MS and due to a pulmonary embolism Maternal Family History: Family History (Last Reviewed 05/12/19 @ 02:15 by Torin Arrieta MD) Father CAD (coronary artery disease) Hypertension Myocardial infarction Mother Hypertension Sister Multiple sclerosis History Items: No pertinent history Review of Systems Constitutional: Reports: Malaise, Weakness. Denies: Chills, Fever, Weight Change HEENT: Denies: Head Aches, Sinus Congestion, Sinus Drainage Cardiovascular: Reports: Light Headedness, Syncope. Denies: Chest Pain, Palpitations Respiratory: Denies: Cough, Shortness of breath at rest, Sputum production Gastrointestinal: Denies: Abdominal Pain, Nausea, Vomiting Genitourinary: Denies: Dysuria Musculoskeletal: Denies: Joint Pain, Joint Tenderness Skin: Denies: Rash, Wounds Neurological: Denies: Numbness, Tingling, Focal weakness Psychiatric: Denies: Anxiety, Depression, Homicidal Ideations, Suicidal Ideations Hematologic/ Lymphatic: Denies: Easy Bruising, Easy Bleeding VTE Information - Inpt Only VTE Present on Admission: No VTE Mechan Device Prophylaxis: None VTE Pharm Prophylaxis ordered?: No Reason prophylaxis not ordered:: Treatment Not Indicated - On home Eliquis for paroxysmal A. fib and PE. Home Eliquis continued. Patient Problems: Active and Suspected Problems (Last Reviewed 05/12/19 @ 02:15 by Torin Arrieta MD) Syncope (Acute) UTI (urinary tract infection) (Acute) Cystitis (Acute) Hypotension (Acute) Acute respiratory insufficiency (Acute) - Physical Exam General: Alert, Oriented x3, Cooperative HEENT: Atraumatic, PERRLA, EOMI, Normocephalic Neck: Supple, No JVD, Negative Carotid Bruits Lungs: Clear to auscultation, Normal air movement Cardiovascular: Regular rate, No murmurs Abdomen: Bowel Sounds Present, Soft, Non Tender Extremities: No edema, Capillary Refill Less than 3 Seconds Skin: No rashes, No breakdown, - - Eschar on right lay covered with bandaid; eschar on left knee covered with bandaid. Family thinks these wounds were sustained from wheel chair. Musculoskeletal: No Tenderness to Palpation of Joints or Extremities Neurological: Neuro grossly intact Psych/Mental Status: Normal Affect, Appropriate Vital Signs Temp Pulse Resp BP Pulse Ox 97.8 F 79 28 H 94/67 94 05/11/19 21:45 05/11/19 21:45 05/11/19 21:45 05/11/19 21:45 05/11/19 21:52 Oxygen Flow Rate (L/min) 4 Oxygen Delivery Method Nasal Cannula Weight: 122.3 kg Body Mass Index (BMI) 31.1 Laboratory Tests Past 24 Hrs 06/05/11/19 05/11/19 21:54 21:54 21:54 WBC 9.0 RBC 5.12 Hgb 15.3 Hct 45.4 MCV 88.7 MCH 29.9 MCHC 33.7 RDW 13.1 RDW Differential 42.6 Plt Count 180 MPV 9.9 Immature Gran % (Auto) 0.300 Neut % (Auto) 73.1 H Lymph % (Auto) 13.2 L [place] % (Auto) 10.8 H Eos % (Auto) 2.4 Baso % (Auto) 0.2 Absolute Neuts (auto) 6.6 Absolute Lymphs (auto) 1.19 Total Counted Not Reportable Sodium 142 Potassium 3.4 L Chloride 110 H Carbon Dioxide 24.0 Anion Gap 8 BUN 25 H Creatinine 1.25 Estim Creat Clear Calc 80.23 Est GFR (MDRD) Af Amer 75 Est GFR (MDRD) Non-Af 62 BUN/Creatinine Ratio 20.0 Glucose 106 Calcium 8.2 L Urine Color Yellow Urine Clarity Cloudy Urine pH 7.0 Ur Specific [place] 1.010 Urine Protein 30 H Urine Glucose (UA) Normal Urine Ketones Negative Urine Occult Blood 50 H Urine Nitrite Positive H Urine Bilirubin Negative Urine Urobilinogen Normal Ur Leukocyte Esterase 500 H Urine RBC 0-5 SEEN Urine WBC >100 SEEN Ur Squamous Epith Cells 0-5 SEEN Urine Bacteria 2+ Urine Mucus 0 SEEN Assessment/Plan All Active Problems (Last Reviewed 05/12/19 @ 02:15 by Torin Arrieta MD) Syncope (Acute) UTI (urinary tract infection) (Acute) Cystitis (Acute) Hypotension (Acute) Acute respiratory insufficiency (Acute) Anticoagulated (Acute) Bladder cancer (Resolved) Atrial fibrillation with RVR (Resolved) The patient is a 63 year old M with a significant history of paroxysmal A. fib; pulmonary embolism; bladder cancer; hypertension; multiple sclerosis who presented to the emergency department because of syncopal episode; and found to have abnormal urinalysis; hypotension and low oxygen saturation requiring supplemental oxygen consistent with acute cystitis and syncope while sitting down. Syncope EKG showed sinus rhythm. We will get an echocardiogram. His syncope could be due to hypotension; of vasovagal syncope. Received normal saline bolus at emergency department. We will continue normal saline at 150 mL's per hour for 1500 mL. Patient was sitting when symptoms occurred. Orthostatic vitals not indicated. Acute Cystitis Patient noted to have abnormal urinalysis. Was started on ceftriaxone emergency department; ceftriaxone continued. Follow urine culture Blood Culture was ordered at the ED; follow Hypotension: Likely due to UTI or home blood pressure medications.. Treat UTI as above. Hold home blood pressure medications. Trend blood pressures. Acute hypoxic respiratory insufficiency. Patient requiring 4 L of nasal cannula oxygen to maintain appropriate oxygenation. Continue oxygen supplementation. Treat underlying infection as above. Hypokalemia: His potassium was mildly low at 3.4. Replace. Trend BMP Obstructive sleep apnea: BiPAP continued Multiple sclerosis: On home ocrelizumab IV every 6 months. Continue outpatient treatment. Zanaflex as needed continued GERD: On Protonix 40 mg twice daily at home; continued. Hyperlipidemia: Zocor continued. ADHD: Vyvanse continued Proximal A. fib: Patient in sinus rhythm on admission. Eliquis continued. DVT prophylaxis: Not indicated since patient is on Eliquis for [place] my A. fib and PE. Continue Eliquis. Code Visit Inpatient E&M: 27379 Init Hosp L3
[2019-05-11 23:18] VITALS: BP 88/57; PULSE 76; RESP 16; O2SAT 94
[2019-05-12] VITALS (16 sets, daily range): BP systolic 92–134; BP diastolic 52–69; PULSE 67–93; RESP 16–18; TEMP 36.4–36.9; O2SAT 92–97; BMI 29.9; BMI 31.2
--- NOTE | 2019-05-12 00:01 | ECHOCS_ITS ---
Reason For Study: syncope Procedure This was a 2D Doppler, Color Flow transthoracic echocardiogram. The study was technically difficult. Due to body habitus. Contrast injection was performed. Left Ventricle Normal size and thickness. The estimated ejection fraction is 65 %. Stage 1 diastolic dysfunction. No regional wall motion abnormalities noted. Right Ventricle Normal size and thickness. Normal systolic function. Atria Normal left atrium. Normal right atrium. Normal atrial septum. Mitral Valve The mitral valve is structurally normal. No prolapse or stenosis seen. Tricuspid Valve Normal tricuspid valve. Trivial tricuspid valve insufficiency. Right ventricular systolic pressure estimated to be 26 mmHg. Aortic Valve Normal aortic valve. Trisinus/trileaflet aortic valve. Pulmonic Valve The pulmonic valve is not well visualized. Great Vessels Normal aortic root. Normal arch. Normal inferior vena cava. Inferior vena cava collapse with sniff. Pericardium/Pleural No pericardial effusion. Medication Diluted definity 5.0ml given slow IV push to enhance endocardial definition. MMode/2D Measurements & Calculations LVIDd: 3.7 cm IVSd: 1.1 cm Ao root diam: 3.5 cm LVIDs: 2.9 cm LVPWd: 1.1 cm RVDd: 3.6 cm FS: 22.8 % LAV(MOD-bp): 45.9 ml LA A4 area: 18.7 cm2 LA dimension(2D): 4.2 cm LAV(MOD-bp) Indexed: 18.2 ml/m2 LAV(MOD-sp2): 37.5 ml LAV(MOD-sp4): 51.8 ml RA A4 area: 15.4 cm2 Time Measurements MV dec time: 0.29 sec Doppler Measurements & Calculations MV E max henry: 67.2 cm/sec Lat Peak E' Henry: 13.6 cm/sec Med Peak E' Henry: 8.7 cm/sec MV A max henry: 82.1 cm/sec E/E' lat: 5.0 E/E' med: 7.7 MV E/A: 0.82 Ao V2 max: 129.3 cm/sec LV V1 max: 91.7 cm/sec PA V2 max: 96.4 cm/sec Ao max P.7 mmHg LV V1 max P.4 mmHg TR max henry: 231.8 cm/sec TR max P.5 mmHg Interpretation Summary The estimated ejection fraction is 65 %. Stage 1 diastolic dysfunction. Trivial tricuspid valve insufficiency. Right ventricular systolic pressure estimated to be 26 mmHg. Compared to echo report dated 11/04/2017, LV function has remained the same but RVSP has increased from 19 to 26 mm Hg. The study was technically difficult. Contrast injection was performed. Ordering Physician: Torin Arrieta Referring Physician: Amanuel Duckworth Performed By: Bettina Kunz RDCS, RVT
[2019-05-12] MEDS: 0.9% Normal Saline 1,000 ML 150 ML IV ×2 (00:15→07:31)
[2019-05-12 01:23] LABS: Lactic Acid 1.6 mmol/L (0.4-2.0)
[2019-05-12 06:16] LABS: Anion Gap 8 (5-15); BUN 22 mg/dL (7-18); BUN/Creat Ratio 18.5 RATIO (10-20); Calcium,Total 8.5 mg/dL (8.5-10.1); Chloride 110 mmol/L (98-107); Creatinine, Serum 1.19 mg/dL (0.70-1.30); EST Glomerular Filtration Rate 66 mL/min (>60); Est Glom Filt Rate - Afr Amer 80 mL/min (>60); Estimated Creatinine Clearance 84.27 ml/min; Glucose 96 mg/dL (74-106); Potassium 3.9 mmol/L (3.5-5.1); Sodium Level 144 mmol/L (136-145)
[2019-05-12] MEDS: Vitamin E 400 UNITS Capsule PO (08:10)
[2019-05-12] MEDS: DULoxetine Hcl 30 MG Capsule PO (08:10)
[2019-05-12] MEDS: Multivitamins,Therapeutic Tablet 1 TABLET PO (08:10)
[2019-05-12] MEDS: APIXABAN 5 MG TABLET PO ×2 (08:11→23:04)
[2019-05-12] MEDS: Pantoprazole Sodium 40 MG Tablet PO ×2 (08:11→23:04)
[2019-05-12] MEDS: LISDEXAMFETAMINE DIMESYLATE 50 MG CAPSULE PO (11:36)
--- NOTE | 2019-05-12 12:06 | CASEMGMT ---
RN CM Assessment Presentation: Cystitis, Syncope. Hx of PE, Afib, bladder cancer, HTN, MS. Intro role of CM and purpose of RN CM assessment to patient. Pt is alert, oriented, able to partcipate in assessment. Demographics, PCP and Pharmacy verified.Pt with history of MS, wheelchair bound, has equipment at home and denies any further needs. RN CM discussed home health if recommended. Pt states he does not think he will need this for now. RN CM let him know we could revisit Home Health referral closer to dc if it would benefit. Pt has recently secured a wheelchair van so he is more mobile and able to participate more in family events. Pt states he is able to f/u with physicians and afford prescriptions. PCP: Dr. Amanuel Duckworth III Specialists: Dr. Bernardo, urology, Dr. Roy, neuro in [place], Dr. Monteiro, cardiology Preferred Pharmacy: [facility] [place] Insurance: [facility] Prescription Benefit: yes LNOK: , Mirella Barney Living Arrangements: Lives in ones story home with ramp. assists with care needs. Pt states he and his are managing well with his care at home. Transportation: van, drives DME: Hospital bed with trapeze, electric wheelchair, raised toilet seat, tub chair, grab bars. No oxygen use at home. HHC: [facility] in past. Pt declining need at this time. Patient DC goals: Home DC PLAN: Anticipate pt will be able to return home on dc with family support. BRANDO ELLIOTTM
--- NOTE | 2019-05-12 13:32 | PCM.PROGNOTE ---
<Juvenal Feliciano - Last Filed: 05/12/19 13:32> Patient Problems: Active and Suspected Problems (Last Updated 05/12/19 @ 14:39 by Chavez Stern MD) Syncope (Acute) Cystitis (Acute) Hypotension (Acute) Subjective: Pt has no sensation of his bladder/urethra. He has no control over incontinence. He has issues completely emptying his bladder as well, and states he was told the urethral structure is abnormal. Frequent UTIs and admissions for UTIs. He has no fevers or chills, no SOB/cough. Feels weak, and had altered mental status at home, currently resolved. - Physical Exam General: Alert, Oriented x3, Cooperative HEENT: Atraumatic, PERRLA, EOMI, Normocephalic Neck: Supple, No JVD, Negative Carotid Bruits Lungs: Clear to auscultation, Normal air movement Cardiovascular: Regular rate, No murmurs Abdomen: Bowel Sounds Present, Soft, Non Tender Extremities: No edema, Capillary Refill Less than 3 Seconds Skin: No rashes, No breakdown Musculoskeletal: No Tenderness to Palpation of Joints or Extremities Neurological: Cranial nerves II-XII grossly intact Psych/Mental Status: Normal Affect, Appropriate, Alert and oriented to time, place, person, mood and affect Vital Signs Temp Pulse Resp BP Pulse Ox 98.1 F 78 16 134/69 H 95 05/12/19 05:55 05/12/19 07:35 05/12/19 05:55 05/12/19 05:58 05/12/19 06:54 Oxygen Flow Rate (L/min) 4 Oxygen Delivery Method Room Air Weight: 259 lb 7.745 oz Body Mass Index (BMI) 29.9 Orthostatic Vital Signs Start: 05/12/19 00:52 Freq: q24h Status: Active Protocol: Activity Type Activity Date Activity User E-Sign Co-Sign Detail Recorded Client Recorded Date Recorded By Document 05/12/19 05:58 [facility] [id number] 05/12/19 06:00 [facility] 05/12/19 05:58 Orthostatic Vitals Sitting -Blood Pressure (90/60-120/80) 112/69 -Extremity Use Right Arm -Pulse Rate (60-100) 75 Lying -Blood Pressure (90/60-120/80) 134/69 H -Extremity Use Right Arm -Pulse Rate (60-100) 73 Intake and Output for Last 24 Hours 05/10/19 05/11/19 05/12/19 23:59 23:59 23:59 Intake Total 1514 / 1514 Balance 1514 / 1514 Laboratory Tests Past 24 Hrs 05/11/19 05/11/19 05/11/19 21:54 21:54 21:54 WBC 9.0 RBC 5.12 Hgb 15.3 Hct 45.4 MCV 88.7 MCH 29.9 MCHC 33.7 RDW 13.1 RDW Differential 42.6 Plt Count 180 MPV 9.9 Immature Gran % (Auto) 0.300 Neut % (Auto) 73.1 H Lymph % (Auto) 13.2 L [place] % (Auto) 10.8 H Eos % (Auto) 2.4 Baso % (Auto) 0.2 Absolute Neuts (auto) 6.6 Absolute Lymphs (auto) 1.19 Total Counted Not Reportable Sodium 142 Potassium 3.4 L Chloride 110 H Carbon Dioxide 24.0 Anion Gap 8 BUN 25 H Creatinine 1.25 Estim Creat Clear Calc 80.23 Est GFR (MDRD) Af Amer 75 Est GFR (MDRD) Non-Af 62 BUN/Creatinine Ratio 20.0 Glucose 106 Lactic Acid Calcium 8.2 L Urine Color Yellow Urine Clarity Cloudy Urine pH 7.0 Ur Specific [place] 1.010 Urine Protein 30 H Urine Glucose (UA) Normal Urine Ketones Negative Urine Occult Blood 50 H Urine Nitrite Positive H Urine Bilirubin Negative Urine Urobilinogen Normal Ur Leukocyte Esterase 500 H Urine RBC 0-5 SEEN Urine WBC >100 SEEN Ur Squamous Epith Cells 0-5 SEEN Urine Bacteria 2+ Urine Mucus 0 SEEN 05/12/19 05/12/19 00:48 05:25 WBC RBC Hgb Hct MCV MCH MCHC RDW RDW Differential Plt Count MPV Immature Gran % (Auto) Neut % (Auto) Lymph % (Auto) [place] % (Auto) Eos % (Auto) Baso % (Auto) Absolute Neuts (auto) Absolute Lymphs (auto) Total Counted Sodium 144 Potassium 3.9 Chloride 110 H Carbon Dioxide 26.0 Anion Gap 8 BUN 22 H Creatinine 1.19 Estim Creat Clear Calc 84.27 Est GFR (MDRD) Af Amer 80 Est GFR (MDRD) Non-Af 66 BUN/Creatinine Ratio 18.5 Glucose 96 Lactic Acid 1.6 Calcium 8.5 Urine Color Urine Clarity Urine pH Ur Specific [place] Urine Protein Urine Glucose (UA) Urine Ketones Urine Occult Blood Urine Nitrite Urine Bilirubin Urine Urobilinogen Ur Leukocyte Esterase Urine RBC Urine WBC Ur Squamous Epith Cells Urine Bacteria Urine Mucus Medical Necessity - Tobacco Use Smoking Status: Never smoker Assessment/Plan All Active Problems (Last Updated 05/12/19 @ 14:39 by Chavez Stern MD) Syncope (Acute) Cystitis (Acute) Hypotension (Acute) 1. Recurrent UTI - negative WBC elevation or fever. Follows [facility] for ongoing bladder issues. Incontinent at baseline with issues completely emptying/?structural abnormality. Continue rocephin - last two cultures have been sensitive to this, however he has grown many different bacteria with a variety of sensitivities. Continue this for now as he is looking and feeling better and plan to adjust when final C/S back. 2. Syncope 2/2 above with associated low BP- BP has normalized. BP meds held. maintain on tele. echo unremarkable for syncope etiology. VSS. 3. MS - wheelchair bound. Receives treatment q6 months 4. Acute respiratory insufficiency - resolved. CXR with atelectasis, elevated left hemidiaphragm. Off O2 now no SOB. 2/2 #1&2 5. GERD - ppi 6. HLD - statin 7. Paroxysmal Afib - SR, controlled. Eliquis. 8. ADHD - vyvanse DVT ppx: eliquis DC planning: wait for final C&S. This patient was seen by Juvenal Feliciano PA-C under the supervision of Dr. Stern. <Chavez Stern E - Last Filed: 05/12/19 14:47> - Physical Exam Vital Signs Temp Pulse Resp BP Pulse Ox 98.1 F 82 18 109/59 L 97 05/12/19 11:30 05/12/19 11:30 05/12/19 11:30 05/12/19 11:30 05/12/19 11:30 Oxygen Flow Rate (L/min) 4 Oxygen Delivery Method Room Air Weight: 259 lb 7.745 oz Body Mass Index (BMI) 29.9 Orthostatic Vital Signs Start: 05/12/19 00:52 Freq: q24h Status: Active Protocol: Activity Type Activity Date Activity User E-Sign Co-Sign Detail Recorded Client Recorded Date Recorded By Document 05/12/19 05:58 [facility] [id number] 05/12/19 06:00 [facility] 05/12/19 05:58 Orthostatic Vitals Sitting -Blood Pressure (90/60-120/80) 112/69 -Extremity Use Right Arm -Pulse Rate (60-100) 75 Lying -Blood Pressure (90/60-120/80) 134/69 H -Extremity Use Right Arm -Pulse Rate (60-100) 73 Intake and Output for Last 24 Hours 05/10/19 05/11/19 05/12/19 23:59 23:59 23:59 Intake Total 1514 / 1514 Balance 1514 / 1514 Laboratory Tests Past 24 Hrs 05/11/19 05/11/19 05/11/19 21:54 21:54 21:54 WBC 9.0 RBC 5.12 Hgb 15.3 Hct 45.4 MCV 88.7 MCH 29.9 MCHC 33.7 RDW 13.1 RDW Differential 42.6 Plt Count 180 MPV 9.9 Immature Gran % (Auto) 0.300 Neut % (Auto) 73.1 H Lymph % (Auto) 13.2 L [place] % (Auto) 10.8 H Eos % (Auto) 2.4 Baso % (Auto) 0.2 Absolute Neuts (auto) 6.6 Absolute Lymphs (auto) 1.19 Total Counted Not Reportable Sodium 142 Potassium 3.4 L Chloride 110 H Carbon Dioxide 24.0 Anion Gap 8 BUN 25 H Creatinine 1.25 Estim Creat Clear Calc 80.23 Est GFR (MDRD) Af Amer 75 Est GFR (MDRD) Non-Af 62 BUN/Creatinine Ratio 20.0 Glucose 106 Lactic Acid Calcium 8.2 L Urine Color Yellow Urine Clarity Cloudy Urine pH 7.0 Ur Specific [place] 1.010 Urine Protein 30 H Urine Glucose (UA) Normal Urine Ketones Negative Urine Occult Blood 50 H Urine Nitrite Positive H Urine Bilirubin Negative Urine Urobilinogen Normal Ur Leukocyte Esterase 500 H Urine RBC 0-5 SEEN Urine WBC >100 SEEN Ur Squamous Epith Cells 0-5 SEEN Urine Bacteria 2+ Urine Mucus 0 SEEN 05/12/19 05/12/19 00:48 05:25 WBC RBC Hgb Hct MCV MCH MCHC RDW RDW Differential Plt Count MPV Immature Gran % (Auto) Neut % (Auto) Lymph % (Auto) [place] % (Auto) Eos % (Auto) Baso % (Auto) Absolute Neuts (auto) Absolute Lymphs (auto) Total Counted Sodium 144 Potassium 3.9 Chloride 110 H Carbon Dioxide 26.0 Anion Gap 8 BUN 22 H Creatinine 1.19 Estim Creat Clear Calc 84.27 Est GFR (MDRD) Af Amer 80 Est GFR (MDRD) Non-Af 66 BUN/Creatinine Ratio 18.5 Glucose 96 Lactic Acid 1.6 Calcium 8.5 Urine Color Urine Clarity Urine pH Ur Specific [place] Urine Protein Urine Glucose (UA) Urine Ketones Urine Occult Blood Urine Nitrite Urine Bilirubin Urine Urobilinogen Ur Leukocyte Esterase Urine RBC Urine WBC Ur Squamous Epith Cells Urine Bacteria Urine Mucus Assessment/Plan Hospitalist note: I am seeing this patient in conjunction with Juvenal Feliciano. I independently seen and examined the patient. Progress note above , laboratory data and imaging studies reviewed and I concur with the above treatment plan. Patient seen and examined today. He feels better, no complaints. Denied abdominal pain, nausea vomiting. Denies fever chills. Blood pressure improved, other vital signs are stable. He has been afebrile. - Physical Exam General: Alert, Oriented x3, Cooperative, No apparent distress. HEENT: Atraumatic, PERRLA, EOMI. Neck: Supple, No JVD, Negative Carotid Bruits, Trachea Midline, Thyroid Normal. Lungs: Clear to auscultation, Normal air movement, No rhonchi, No wheeze, No rales. Cardiovascular: Regular rate, Regular Rhythm, Normal S1, Normal S2, PMI Normal. Abdomen: Bowel Sounds Present, Soft, Non Tender, Non-Distended, No Hepato-splenomegaly. Extremities: No clubbing, No cyanosis, No edema Skin: No rashes, No breakdown Neurological: Cranial nerves are intact, minimal weakness on the left lower extremity. Vital signs are stable. Assessment and plan: #1 acute cystitis: In context of history of recurrent UTI. He is on IV Rocephin. Blood pressure improved, has been afebrile. No leukocytosis. Blood and urine cultures are pending. Patient has history of recurrent UTI in context of history of multiple sclerosis, chronic incontinence. Plan to continue same treatment, follow blood and urine cultures. #2: Syncope: Likely due to vasovagal syncope because of hypotension. Blood pressure stabilized, patient improved. 2D echocardiogram showed ejection fraction 65%, stage I diastolic dysfunction. #3 acute respiratory insufficiency/hypoxia: Chest x-ray showed no acute findings, revealed atelectasis. Today, patient has been on room air, pulse ox is maintained. #4 other chronic medical problems: Stable, continue current medications as above. This note was generated with [employer] dictation software. It may contain incorrect words, spelling, and punctuation that were not noted in checking the note before signing. Code Visit Inpatient E&M: 91895 Subs Hosp L2
[2019-05-12] MEDS: Atorvastatin Calcium 10 MG Tablet PO (23:04)
[2019-05-12] MEDS: Ceftriaxone 1 GM/50 ML BAG IV (23:04)
[2019-05-12] MEDS: 0.9% NaCl Peripheral Flush Adult/Peds IV (23:06)
[2019-05-13 02:59] VITALS: PULSE 75
[2019-05-13 03:20] VITALS: BP 106/68; PULSE 78; RESP 16; TEMP 36.7; O2SAT 95
[2019-05-13 05:53] VITALS: BP 132/62; BP 134/83; PULSE 82
[2019-05-13 07:36] VITALS: O2SAT 96
[2019-05-13 09:50] VITALS: BP 132/76; PULSE 78; RESP 18; TEMP 37.1; O2SAT 95
[2019-05-13] MEDS: Pantoprazole Sodium 40 MG Tablet PO (09:52)
[2019-05-13] MEDS: Multivitamins,Therapeutic Tablet 1 TABLET PO (09:52)
[2019-05-13] MEDS: Vitamin E 400 UNITS Capsule PO (09:52)
[2019-05-13] MEDS: DULoxetine Hcl 30 MG Capsule PO (09:52)
[2019-05-13] MEDS: APIXABAN 5 MG TABLET PO (09:52)
[2019-05-13] MEDS: LISDEXAMFETAMINE DIMESYLATE 50 MG CAPSULE PO (09:53)
[2019-05-13 10:23] VITALS: PULSE 82
--- NOTE | 2019-05-13 11:23 | DCINST_ITS ---
- Discharge Diagnoses Current Active Problems: Current Active and Chronic Problems (Last Updated 05/12/19 @ 14:39 by Chavez Stern MD) Syncope (Acute) Cystitis (Acute) Hypotension (Acute) You will use the following diet at home:: Cardiac Discharge Activity: Return to Normal Activity Call your doctor if you observe: Fever of 101 or Higher, Shortness of breath, Dizziness, Fainting spells, Chest pain Allergies/Adverse Reactions: Allergies No Known Allergies Allergy (Verified 04/16/19 10:29) Medications to take at Discharge Lisdexamfetamine Dimesylate [Vyvanse] 50 mg PO DAILY cap 08/29/17 Vitamin E (Dl,Tocopheryl Acet) [Vitamin E] 400 units PO DAILY 09/14/17 meclizine 25 mg tablet 25 mg PO PRN PRN 11/04/17 ocrelizumab 30 mg/mL intravenous solution 600 mg IV .COMPLEX 11/04/17 tizanidine 4 mg capsule 4 mg PO Q8H PRN 11/04/17 albuterol sulfate 2.5 mg/3 mL (0.083 %) solution for nebulization 2.5 mg INHALATION Q4H PRN #180 vial 03/04/18 Apixaban [Eliquis] 5 mg PO BID 05/28/18 Cholecalciferol (VIT D3) [Vitamin D3] 5,000 unit PO DAILY 05/28/18 Duloxetine Hcl [Cymbalta] 30 mg PO DAILY 05/28/18 Multivitamins,Therapeutic [Multivitamin] 1 tab PO DAILY 05/28/18 lisinopril 40 mg tablet 40 mg PO QDAY 06/29/18 hydrochlorothiazide 25 mg tablet 25 mg PO DAILY 01/08/19 carvedilol 12.5 mg tablet 12.5 mg PO BID #180 tab 02/12/19 pantoprazole 40 mg tablet,delayed release 40 mg PO BID #60 tab 03/10/19 simvastatin 20 mg tablet 20 mg PO QHS #90 tab 04/09/19 Cephalexin [Keflex] 500 mg PO Q6 #24 cap 05/13/19 The following prescriptions were given: Cephalexin [Keflex] 500 mg PO Q6 #24 cap Transmission Status: Pending to [facility]/pharmacy #[id number] Primary Care Physician: Amanuel Duckworth III, MD [Primary Care Provider] - Please follow up with your Primary Care Physician in: 1 Week Test Results: Test results from this visit will be discussed in further detail at your follow- up appointment, if applicable. Please Follow Up With: Wilmer Bernardo MD When: 1 Week Proposed Discharge Date: 05/13/19
--- NOTE | 2019-05-13 11:28 | PCM.DC.SUM ---
<Shaneka Garcia - Last Filed: 05/13/19 11:44> Discharge Date and Diagnosis Date of Admission: 05/11/19 Date of Discharge: 05/13/19 - Primary Discharge Diagnosis Active and Suspected Problems (Last Updated 05/12/19 @ 14:39 by Chavez Stern MD) 1. Acute Recurrent UTI 2. Hypotension-suspect secondary to #1 and dehydration. 3. Syncope, secondary to #1/#2 4. Acute hypoxia 5. Paroxysmal atrial fibrillation 6. Multiple sclerosis with associated debility 7. History of pulmonary embolism 8. Depression/ADHD 9. Hyperlipidemia 10. Hypertension 11. JOSH - Secondary Discharge Diagnosis Chronic Problems (Last Updated 05/12/19 @ 14:39 by Chavez Stern MD) Hyperlipidemia (Chronic) Abnormal EKG (Chronic) Obstructive sleep apnea (Chronic) Paroxysmal atrial fibrillation (Chronic) Atrial septal defect (Chronic) Multiple sclerosis (Chronic) Bladder cancer (Chronic) Pulmonary embolism (Chronic) Hypertension (Chronic) Hospital Course and Treatment Imaging Results: Diagnostic Data Chest X-Ray 05/11/19 21:55 IMPRESSION: 1. Question bowel obstruction. Consider CT of the abdomen for further evaluation if clinically warranted. 2. Atelectasis consistent with chronic elevation of the left hemidiaphragm. Otherwise, negative chest. Electronically Signed: Neisha Pool MD at 22:24 EDT Tel , Service support , Operations: None Procedures: 2-D Echocardiogram Summary of Care Provided: The patient is a 63 year old M admitted 05/11/2019 due to syncope. He has a past medical history of MS, paroxysmal atrial fibrillation, obstructive sleep apnea, history of bladder cancer, history of pulmonary embolism, depression/ADHD, hypertension, hyperlipidemia, GERD. 1. Acute recurrent UTI-urine culture pending. Improved on IV Rocephin. Afebrile, no leukocytosis. Given improvement on IV Rocephin, discharge on oral Keflex 500 mg every 6 hours x6 days. Prior to culture is sensitive to Rocephin. Previous cultures with multiple organisms. Follow-up with primary care physician in 1 week. Follow-up with Dr. Bernardo in 1 week as well. Patient follows with urology for chronic bladder issues including incontinence and incomplete emptying/structural abnormality related to MS. 2. Hypotension-suspect secondary to #1 and dehydration. Improved with IV fluids and holding BP regimen. Patient will resume home BP regimen at discharge. This may need further reduced if blood pressure low at PCP follow-up. 3. Syncope, secondary to #1/#2-echocardiogram with EF 65%, stage I diastolic dysfunction, RVSP estimated to be 26 mmHg. Orthostatic vitals negative. 4. Acute hypoxia-oxygen 88% on admission. Chest x-ray without acute process. Atelectasis. Oxygen now stable on room air. 5. Paroxysmal atrial fibrillation-continue Eliquis, Coreg. 6. Multiple sclerosis with associated debility-chronic left-sided hemiparesis. Patient had home health in the past. Declines current needs. 7. History of pulmonary embolism-continue Eliquis. 8. Depression/ADHD-continue Cymbalta, vyvanse. 9. Hyperlipidemia-continue statin. 10. Hypertension-continue home lisinopril, carvedilol regimen. 11. JOSH-follows with pulmonary medicine as outpatient. Continue CPAP regimen. General: Alert, Oriented x3, Cooperative, No apparent distress HEENT: Atraumatic, PERRLA, EOMI, Normocephalic Oral: Moist Mucosa Neck: Supple, No JVD, Negative Carotid Bruits Lungs: Clear to auscultation, Normal air movement Cardiovascular: Regular rate, Regular Rhythm, Normal S1, Normal S2, No murmurs Abdomen: Bowel Sounds Present, Soft, Non Tender, Non-Distended Extremities: No clubbing, No cyanosis, No edema, Capillary Refill Less than 3 Seconds Skin: No rashes, No breakdown Musculoskeletal: No Tenderness to Palpation of Joints or Extremities Neurological: Cranial nerves II-XII grossly intact, Neuro grossly intact, Chronic left-sided hemiplegia secondary to MS. Psych/Mental Status: Normal Affect, Appropriate Patient seen exam prior to discharge. Physical assessment as noted above. Patient is stable for discharge home with the follow-up recommendations as noted above. This patient was seen by ANNELISE Estes under the supervision of Dr. Stern. - Physical Exam Vital Signs Temp Pulse Resp BP Pulse Ox 98.7 F 82 18 132/76 H 95 05/13/19 09:50 05/13/19 10:23 05/13/19 09:50 05/13/19 09:50 05/13/19 09:50 Oxygen Flow Rate (L/min) 4 Oxygen Delivery Method Room Air Weight: 259 lb 7.745 oz Body Mass Index (BMI) 29.9 Orthostatic Vital Signs Start: 05/12/19 00:52 Freq: 0500 Status: Active Protocol: Activity Type Activity Date Activity User E-Sign Co-Sign Detail Recorded Client Recorded Date Recorded By Document 05/13/19 05:53 BS [id number] 05/13/19 05:54 BS 05/13/19 05:53 Orthostatic Vitals Sitting -Blood Pressure (90/60-120/80) 134/83 H -Extremity Use Right Arm -Pulse Rate (60-100) 82 Lying -Blood Pressure (90/60-120/80) 132/62 H -Extremity Use Right Arm -Pulse Rate (60-100) 82 Intake and Output for Last 24 Hours 05/11/19 05/12/19 05/13/19 23:59 23:59 23:59 Intake Total 2083.2 / 2083.2 120 / 120 Output Total 500 / 500 Balance 1583.2 / 1583.2 120 / 120 Discharge Diet: Low fat/ Low Cholesterol Discharge Activity: Return to Normal Activity Call your doctor if you observe: Fever of 101 or Higher, Shortness of breath, Dizziness, Fainting spells, Chest pain Home Medications: Medications to take at Discharge Lisdexamfetamine Dimesylate [Vyvanse] 50 mg PO DAILY cap 08/29/17 Vitamin E (Dl,Tocopheryl Acet) [Vitamin E] 400 units PO DAILY 09/14/17 meclizine 25 mg tablet 25 mg PO PRN PRN 11/04/17 ocrelizumab 30 mg/mL intravenous solution 600 mg IV .COMPLEX 11/04/17 tizanidine 4 mg capsule 4 mg PO Q8H PRN 11/04/17 albuterol sulfate 2.5 mg/3 mL (0.083 %) solution for nebulization 2.5 mg INHALATION Q4H PRN #180 vial 03/04/18 Apixaban [Eliquis] 5 mg PO BID 05/28/18 Cholecalciferol (VIT D3) [Vitamin D3] 5,000 unit PO DAILY 05/28/18 Duloxetine Hcl [Cymbalta] 30 mg PO DAILY 05/28/18 Multivitamins,Therapeutic [Multivitamin] 1 tab PO DAILY 05/28/18 lisinopril 40 mg tablet 40 mg PO QDAY 06/29/18 hydrochlorothiazide 25 mg tablet 25 mg PO DAILY 01/08/19 carvedilol 12.5 mg tablet 12.5 mg PO BID #180 tab 02/12/19 pantoprazole 40 mg tablet,delayed release 40 mg PO BID #60 tab 03/10/19 simvastatin 20 mg tablet 20 mg PO QHS #90 tab 04/09/19 Cephalexin [Keflex] 500 mg PO Q6 #24 cap 05/13/19 Following Prescrptions Were Given to Patient: Cephalexin [Keflex] 500 mg PO Q6 #24 cap Transmission Status: Received by [facility]/pharmacy #[id number] Primary Care Physician: Amanuel Duckworth III, MD [Primary Care Provider] - Please follow up with your Primary Care Physician in: 1 Week Please Follow Up With: Wilmer Bernardo MD When: 1 Week Disposition: Home Minutes spent on discharge:: 35 Patient Condition:: Stable Medical Necessity - Tobacco Use Smoking Status: Never smoker Meaningful Use Info Meaningful Use Diagnoses (Choose all that apply): None applicable <Chavez Stern - Last Filed: 05/13/19 12:28> Discharge Date and Diagnosis - Secondary Discharge Diagnosis Chronic Problems (Last Updated 05/12/19 @ 14:39 by Chavez Stern MD) Hyperlipidemia (Chronic) Abnormal EKG (Chronic) Obstructive sleep apnea (Chronic) Paroxysmal atrial fibrillation (Chronic) Atrial septal defect (Chronic) Multiple sclerosis (Chronic) Bladder cancer (Chronic) Pulmonary embolism (Chronic) Hypertension (Chronic) Hospital Course and Treatment Summary of Care Provided: Hospitalist note: Discharge summary above reviewed and I concur with the above discharge and treatment plan. Patient presented to the emergency room because of syncope, found to have acute cystitis in context of history of recurrent UTI which was complicated by hypotension that responded to IV fluid resuscitation. This syncopal event explained by vasovagal syncope. Patient was treated with IV fluids, IV Rocephin for acute cystitis and he did very well. Initially, patient was hypoxic. Chest x-ray showed no acute findings, revealed atelectasis. With IV fluids and IV antimicrobial, patient's blood pressure stabilized, her respiratory status stabilized and his pulse ox remained normal in room air. His routine blood work was remarkable for mild hypokalemia which was replaced and corrected, otherwise normal. Urine cultures from the previous admissions reviewed and revealed different organisms including Staphylococcus stimulants, E. coli, enterococcus and staph epidermidis. Patient remained afebrile since admission and his blood pressure significantly improved. Blood culture was negative up to the time of discharge and urine culture was pending. Because patient responded very well to IV Rocephin, patient discharged on Keflex. Patient discharged home in a stable medical condition, discharged on Keflex, recommended follow-up with PCP in 1 week and follow-up with urology in 1 week as well. - Physical Exam General: Alert, Oriented x3, Cooperative, No apparent distress. HEENT: Atraumatic, PERRLA, EOMI. Neck: Supple, No JVD, Negative Carotid Bruits, Trachea Midline, Thyroid Normal. Lungs: Clear to auscultation, Normal air movement, No rhonchi, No wheeze, No rales. Cardiovascular: Regular rate, Regular Rhythm, Normal S1, Normal S2, PMI Normal. Abdomen: Bowel Sounds Present, Soft, Non Tender, Non-Distended, No Hepato-splenomegaly. Extremities: No clubbing, No cyanosis, No edema Skin: No rashes, No breakdown Neurological: Cranial nerves are intact, minimal weakness on the left lower extremity. Vital signs are stable. This note was generated with [employer] dictation software. It may contain incorrect words, spelling, and punctuation that were not noted in checking the note before signing. - Physical Exam Vital Signs Temp Pulse Resp BP Pulse Ox 98.7 F 82 18 132/76 H 95 05/13/19 09:50 05/13/19 10:23 05/13/19 09:50 05/13/19 09:50 05/13/19 09:50 Oxygen Flow Rate (L/min) 4 Oxygen Delivery Method Room Air Weight: 259 lb 7.745 oz Body Mass Index (BMI) 29.9 Orthostatic Vital Signs Start: 05/12/19 00:52 Freq: 0500 Status: Active Protocol: Activity Type Activity Date Activity User E-Sign Co-Sign Detail Recorded Client Recorded Date Recorded By Document 05/13/19 05:53 BS [id number] 05/13/19 05:54 BS 05/13/19 05:53 Orthostatic Vitals Sitting -Blood Pressure (90/60-120/80) 134/83 H -Extremity Use Right Arm -Pulse Rate (60-100) 82 Lying -Blood Pressure (90/60-120/80) 132/62 H -Extremity Use Right Arm -Pulse Rate (60-100) 82 Intake and Output for Last 24 Hours 05/11/19 05/12/19 05/13/19 23:59 23:59 23:59 Intake Total 2083.2 / 2083.2 520 / 520 Output Total 500 / 500 150 / 150 Balance 1583.2 / 1583.2 370 / 370 Disposition: Home Minutes spent on discharge:: 25 Patient Condition:: Stable Meaningful Use Info Meaningful Use Diagnoses (Choose all that apply): None applicable Code Visit Inpatient E&M: 76644 Disch Hosp
--- NOTE | 2019-05-13 12:11 | PHA.DC.MC ---
Pharmacy Service has performed discharge medication reconciliation and counseling for this patient. The patient's discharge medication list was reviewed for discrepancies and discrepancies were resolved. The patient was counseled on the following discharge medications and changes in medications for homegoing were reviewed. 1. Cephalexin The Reason for Use, instructions for use, and potential side effects were reviewed for all new medications. The patient's questions regarding all of their medications were answered. The patient demonstrated some understanding but would benefit from further education and reinforcement. Home Medications Lisdexamfetamine Dimesylate [Vyvanse] 50 mg PO DAILY cap 08/29/17 Vitamin E (Dl,Tocopheryl Acet) [Vitamin E] 400 units PO DAILY 09/14/17 meclizine 25 mg tablet 25 mg PO PRN PRN 11/04/17 ocrelizumab 30 mg/mL intravenous solution 600 mg IV .COMPLEX 11/04/17 tizanidine 4 mg capsule 4 mg PO Q8H PRN 11/04/17 albuterol sulfate 2.5 mg/3 mL (0.083 %) solution for nebulization 2.5 mg INHALATION Q4H PRN #180 vial 03/04/18 Apixaban [Eliquis] 5 mg PO BID 05/28/18 Cholecalciferol (VIT D3) [Vitamin D3] 5,000 unit PO DAILY 05/28/18 Duloxetine Hcl [Cymbalta] 30 mg PO DAILY 05/28/18 Multivitamins,Therapeutic [Multivitamin] 1 tab PO DAILY 05/28/18 lisinopril 40 mg tablet 40 mg PO QDAY 06/29/18 hydrochlorothiazide 25 mg tablet 25 mg PO DAILY 01/08/19 carvedilol 12.5 mg tablet 12.5 mg PO BID #180 tab 02/12/19 pantoprazole 40 mg tablet,delayed release 40 mg PO BID #60 tab 03/10/19 simvastatin 20 mg tablet 20 mg PO QHS #90 tab 04/09/19 Cephalexin [Keflex] 500 mg PO Q6 #24 cap 05/13/19
== END 2019-05-13 13:00 | disposition home or self-care (01) | DRG 690 ==
LOC: ED 23:30 → PCU 23:41
PROVIDERS: Admitting Provider Hospitalist; Emergency Provider Emergency Medicine; Family Provider Family Medicine; PCP Family Medicine; Visit Provider Hospitalist
DX: N30.00 Acute cystitis without hematuria (principal); G35 Multiple sclerosis; E87.6 Hypokalemia; K21.9 Gastro-esophageal reflux disease without esophagitis; E78.5 Hyperlipidemia, unspecified; F90.9 Attention-deficit hyperactivity disorder, unspecified type; R55 Syncope and collapse; R06.89 Other abnormalities of breathing; B95.7 Other staphylococcus as the cause of diseases classified elsewhere; I95.9 Hypotension, unspecified; E86.0 Dehydration; R09.02 Hypoxemia; I48.0 Paroxysmal atrial fibrillation; G47.33 Obstructive sleep apnea (adult) (pediatric); R32 Unspecified urinary incontinence; I10 Essential (primary) hypertension; Z87.440 Personal history of urinary (tract) infections; Z85.51 Personal history of malignant neoplasm of bladder; Z79.01 Long term (current) use of anticoagulants; Z86.711 Personal history of pulmonary embolism
CPT/HCPCS: 36415; 71045; 80048; 81001; 83605; 85025; 87040; 87077; 87086; 87088; 87186; 93005; 93306; 97162; 97166; 97530; 97802; 99285; J7030; Q9957; A4216; C8929; J2405

== ENCOUNTER → 2019-05-19 | Outpatient (CLI) | payer MEDICARE, OTHER, SELFPAY ==
[2019-05-12 00:19] VITALS: BMI 29.9
--- NOTE | 2019-05-19 | FLU_PTH ---
PATIENT: NERY MIDDLETON LOC: [facility] U#:[id number] AGE/SX: 63/M ROOM: RE05/19/[address]: ANNELISE Rose : 1955 BED: DIS: 05/19/2019 SPEC #: [id number] RECD: 05/19/19 13:04 STATUS: HELDER RIGO #: [id number] RASHID: 05/19/19 00:[address]: Odalys Gastelum NP DEPT: CYTOLOGY RECD BY: Huey Jerez ENTERED: 05/19/19 13:05 SP TYPE: Fluid OTHR DR: Dr. Amanuel Duckworth III, MD Tissues: Urine Procedures: Special Stain Group II Surgery Specimen Level IV Cytospin Fluid HEADER OPERATION: Not noted PRE-OP DIAGNOSIS: Bladder cancer TISSUE SUBMITTED: Urine for cytology DIAGNOSIS CYTOLOGY Urine for cytology (cytospin): Negative for malignant cells. Urothelial cells, histiocytes, bacterial colonies and numerous acute inflammatory cells present. CE: 05/21/19 COMMENT Case has been reviewed in consultation with Dr. Stewart who concurs with the above diagnosis. IDC:FA CYTOLOGY STUDY Slides are reviewed. CYTOLOGY GROSS Received is 60 ml of hazy yellow fluid labeled with the patient's name and and designated per the requisition as urine. Submitted for cytology preparation. / CC:cc 05/19/19 TC:5 CPT: 85126
[2019-05-19 12:56] LABS: Cytology, Body Fluid / CSF SEE PATHOLOGY REPORT
== END | disposition home or self-care (01) ==
LOC: LABSPEC 12:41
PROVIDERS: Family Provider Family Medicine; PCP Family Medicine; Referring Provider Nurse Practitioner Adult Health; Visit Provider Nurse Practitioner Adult Health
DX: Z85.51 Personal history of malignant neoplasm of bladder (principal)
CPT/HCPCS: 88108; 88305; 88313

== ENCOUNTER → 2019-09-02 10:21 | Outpatient (CLI) | payer MEDICARE, SELFPAY ==
[2019-09-02 12:58] LABS: AST(SGOT) 20 U/L (15-37); Alanine Aminotransfer ALT/SGPT 23 U/L (16-61); Albumin, Serum 3.6 g/dL (3.2-5.0); Alkaline Phosphatase 103 U/L (45-117); Bilirubin, Direct 0.15 mg/dL (0.00-0.30); Cholesterol 140 mg/dL (200); High Density Lipoprotein 45 mg/dL; Protein, Total 7.6 g/dL (6.4-8.2); Triglycerides 159 mg/dL; Very Low Density Lipoprotein 32 mg/dL (5-40)
== END ==
PROVIDERS: Family Provider Family Medicine; PCP Family Medicine; Referring Provider Internal Medicine Cardiovascular Disease; Visit Provider Internal Medicine Cardiovascular Disease
DX: E78.5 Hyperlipidemia, unspecified (principal)
CPT/HCPCS: 36415; 80061; 80076

== ENCOUNTER → 2019-10-20 07:48 | Outpatient (CLI) | payer MEDICARE, SELFPAY ==
[2019-04-16 08:14] VITALS: BMI 28.8
[2019-09-29 06:22] VITALS: BMI 28.8
[2019-10-20 07:56] VITALS: BP 151/98; PULSE 79; RESP 16; TEMP 36.8; O2SAT 95; BMI 28.8
[2019-10-20] MEDS: Acetaminophen 500 MG Tablet 1000 MG PO (07:59)
[2019-10-20] MEDS: DiphenhydrAMINE 50 MG/ML Syringe 25 MG IV (08:02)
[2019-10-20] MEDS: MethylPREDNISolone 125 MG/2 ML Vial 100 MG IV (08:02)
[2019-10-20] MEDS: Ocrelizumab 600mg Infusion 40 MG IV (08:41)
[2019-10-20 13:39] VITALS: BP 154/101; PULSE 79; RESP 18; TEMP 36.5
== END ==
PROVIDERS: Family Provider Family Medicine; PCP Family Medicine; Referring Provider Psychiatry & Neurology Sleep Medicine
DX: G35 Multiple sclerosis (principal)
CPT/HCPCS: 96365; 96366 ×3; 96374; 96375; J7040; A4216; J2350

== ENCOUNTER 2019-12-01 20:44 | Observation (INO) | payer MEDICARE, SELFPAY ==
[2019-10-20 07:56] VITALS: BMI 28.8
[2019-12-01 20:46] VITALS: PULSE 89; RESP 20; TEMP 37.7; O2SAT 90; BMI 30.9
[2019-12-01 20:55] VITALS: BP 108/60; PULSE 92; RESP 20; O2SAT 92
--- NOTE | 2019-12-01 21:29 | ED.VIS.GEN ---
History of Present Illness Chief Complaint: Weakness Informant: Patient, Family Onset: Days - 2-3 Context: Gradual Onset Timing: Continuous Quality: weak Location: all over Current Severity: Moderate Maximum Severity: Moderate Worsened by: n/a Relieved by: n/a Narrative: Patient feels weak all over. He has multiple sclerosis, has chronic weakness on his left side, with paralysis of the leg, gets around using a wheelchair, has had this happen before when he gets a urinary tract infection. He had problems emptying his bladder in the past and used to self cath but since that improved he does not have to use catheters anymore. He has decreased sensation throughout the left side to the point where he had obstructing kidney stones on the left and had no pain from them. He denies any gross hematuria. He had a headache yesterday but took some Tylenol for it not resolved and has not recurred today. No neck stiffness. No confusion. No new neurologic symptoms. - Past Medical History (1) Atrial septal defect Status: Chronic (2) Bladder cancer Status: Resolved Comment: After 1 round of chemotherapy 2014 (3) Hyperlipidemia Status: Chronic (4) Hypertension Status: Chronic (5) Multiple sclerosis Status: Chronic (6) Obstructive sleep apnea Status: Chronic (7) Paroxysmal atrial fibrillation Status: Chronic (8) Pulmonary embolism Status: Chronic (9) Recurrent UTI Status: Chronic (10) Syncope due to orthostatic hypotension Status: Resolved Past Medical History - Allergies and Home Meds Allergies/Adverse Reactions: Allergies No Known Allergies Allergy (Verified 09/29/19 09:31) Primary Care Physician: Amanuel uDckworth III, MD [Primary Care Provider] - Surgical History: - - colonoscopy. Lives: With Family Smoking Status: Never smoker - Family History Paternal Family History: Family History (Last Reviewed 09/29/19 @ 09:31 by Megan Munguia) Father CAD (coronary artery disease) Hypertension Myocardial infarction Mother Hypertension Sister Multiple sclerosis Family History: Reports: Hypertension Sibling Family History: Family History (Last Reviewed 09/29/19 @ 09:31 by Megan Munguia) Father CAD (coronary artery disease) Hypertension Myocardial infarction Mother Hypertension Sister Multiple sclerosis Family History: Reports: - - Sister with history of MS and due to a pulmonary embolism Maternal Family History: Family History (Last Reviewed 09/29/19 @ 09:31 by Megan Munguia) Father CAD (coronary artery disease) Hypertension Myocardial infarction Mother Hypertension Sister Multiple sclerosis Family History: Reports: No pertinent history Review of Systems General: Reports: Fever, Malaise, Subjective. Denies: Chills, Sweats Eyes: Denies: Visual changes - bilaterally, Diplopia ENT: Denies: Bilateral ear pain, Rhinorrhea, Sore throat Cardiovascular: Denies: Chest pain, Palpitations Respiratory: Denies: Dyspnea, Cough, Dyspnea on exertion Gastrointestinal: Denies: Abdominal pain, Nausea, Vomiting, Diarrhea, Melena, Hematochezia Genitourinary: Denies: Dysuria, Hematuria, Frequency Musculoskeletal: Denies: Neck pain, Back pain, Swelling, Extremity Pain Skin: Denies: Rash, Wounds Neurological: Reports: Weakness, Numbness. Denies: Headache Physical Exam Vital Signs/Narrative: Vital Signs Temp Pulse Resp BP Pulse Ox 12/01/19 20:55 92 20 H 108/60 92 12/01/19 20:46 99.8 F H 89 20 H 90 Inital Vital Signs reviewed: Yes General: Well nourished, Well developed, No Acute Distress Head: Normocephalic, Atraumatic Eyes: Perrl, EOMI ENT: Moist mucous membranes, No rhinorrhea Neck: Supple, Nontender Cardiovascular: Regular rate, Regular rhythm, No murmurs Respiratory: No distress, CTA bilaterally, Chest nontender Abdomen: Soft, Nontender, Nondistended, Normal bowel sounds Back: Nontender, Normal Inspection. Negative for: CVA tenderness Extremities: Nontender, No edema Skin: Normal color, No rash Neurological: Alert, Oriented x3, Cranial nerves II-XII grossly intact, Parasthesia - Throughout left side/extremities, Weakness - Able to move left hand but not able to use his left upper extremity against gravity. Paralyzed left lower extremity. Normal strength right upper and right lower extremities. Psychological: Normal affect, Normal Mood Diagnostic/Tx/Re-eval Impressions Chest X-Ray 12/01/19 21:35 IMPRESSION: No acute findings. Electronically Signed: Nino Wellington, at 21:49 EST Tel , Service support , 12/01/19 21:35 Chest 1 View (Portable) [RAD] Stat Laboratory Results 12/01/19 12/01/19 12/01/19 21:40 21:40 21:40 WBC 8.7 RBC 5.18 Hgb 15.1 Hct 45.6 MCV 88.0 MCH 29.2 MCHC 33.1 RDW Std Deviation 39.8 RDW Coeff of Bravo 12.3 Plt Count 215 MPV 9.3 Immature Gran % (Auto) 0.600 Neut % (Auto) 69.8 Lymph % (Auto) 13.6 L [place] % (Auto) 14.3 H Eos % (Auto) 1.2 Baso % (Auto) 0.5 Absolute Neuts (auto) 6.1 Absolute Lymphs (auto) 1.18 Nucleated RBC % 0 PT 16.4 H INR 1.3 APTT 38.3 H Sodium 141 Potassium 3.2 L Chloride 108 H Carbon Dioxide 27.0 Anion Gap 6 BUN 20 H Creatinine 1.14 Estim Creat Clear Calc 86.86 Est GFR (MDRD) Af Amer 84 Est GFR (MDRD) Non-Af 69 BUN/Creatinine Ratio 17.5 Glucose 152 H Lactic Acid Calcium 9.1 Total Bilirubin 0.40 AST 13 L ALT 20 Alkaline Phosphatase 96 Troponin I < 0.015 Total Protein 6.9 Albumin 2.8 L Globulin 4.1 Albumin/Globulin Ratio 0.7 L Urine Color Urine Clarity Urine pH Ur Specific [place] Urine Protein Urine Glucose (UA) Urine Ketones Urine Occult Blood Urine Nitrite Urine Bilirubin Urine Urobilinogen Ur Leukocyte Esterase Urine RBC Urine WBC Ur Squamous Epith Cells Urine Bacteria Urine Mucus 12/01/19 12/01/19 21:40 22:35 WBC RBC Hgb Hct MCV MCH MCHC RDW Std Deviation RDW Coeff of Bravo Plt Count MPV Immature Gran % (Auto) Neut % (Auto) Lymph % (Auto) [place] % (Auto) Eos % (Auto) Baso % (Auto) Absolute Neuts (auto) Absolute Lymphs (auto) Nucleated RBC % PT INR APTT Sodium Potassium Chloride Carbon Dioxide Anion Gap BUN Creatinine Estim Creat Clear Calc Est GFR (MDRD) Af Amer Est GFR (MDRD) Non-Af BUN/Creatinine Ratio Glucose Lactic Acid 1.3 Calcium Total Bilirubin AST ALT Alkaline Phosphatase Troponin I Total Protein Albumin Globulin Albumin/Globulin Ratio Urine Color Yellow Urine Clarity Cloudy Urine pH 6.0 Ur Specific [place] 1.015 Urine Protein 100 H Urine Glucose (UA) Normal Urine Ketones Negative Urine Occult Blood 250 H Urine Nitrite Negative Urine Bilirubin Negative Urine Urobilinogen 1 H Ur Leukocyte Esterase 500 H Urine RBC 10-25 SEEN Urine WBC >100 SEEN Ur Squamous Epith Cells 0-5 SEEN Urine Bacteria 1+ Urine Mucus 0 SEEN - Medical Decision Making Patient was getting gradual IV fluids and despite this, his pressure started dropping and went down to 85/52. We given IV fluid bolus and this responded well, 97/72. He is very weak to the point where he is unable to transfer on his own and is having trouble transferring him for him. He does have a urine infection. His lactate is within normal limits and he is clinically stable. Blood and urine cultures were sent, Rocephin is started, and the plan is admission for continued treatment. Suspect the urine infection is causing this. ED Disposition - Plan for ED Patient: Disposition: Acute Care [facility] Diagnosis: Urinary tract infection, Hypokalemia, Generalized weakness, Multiple sclerosis, Transient hypotension Referrals: Amanuel Duckworth III, MD [Primary Care Provider] -
[2019-12-01] MEDS: Acetaminophen 500 MG Tablet 1000 MG PO (21:34)
--- NOTE | 2019-12-01 21:35 | RAD_ITS ---
STUDY: X-RAY CHEST REASON FOR EXAM: Male, 64 years old. Weakness and fever. TECHNIQUE: Frontal chest COMPARISON: 05/11/2019 frontal chest FINDINGS: No evidence of pneumonia, pulmonary edema, pneumothorax or pleural effusion. Elevated hemidiaphragms with left greater than right basilar subsegmental atelectasis similar to previous. Cardiac silhouette, hilar and mediastinal contours with no acute findings. Heart size normal. Atherosclerosis of the thoracic aorta. Degenerative osseous changes with no acute osseous abnormality. Distended air-filled loops of bowel beneath both hemidiaphragms similar to previous. RAD/Chest 1 View (Portable) IMPRESSION: No acute findings. Electronically Signed: Nino Wellington, at 21:49 EST Tel , Service support ,
[2019-12-01 21:49] LABS: Absolute Lymphocyte Count 1.18 X10^3/uL (0.83-4.51); Absolute Neutrophil Count 6.1 X10^3/uL (2.0-7.7); Basophil# 0.04 X10^3/uL; Basophil% 0.5 % (0-1); Eosinophils% 1.2 % (0-5); Hematocrit 45.6 % (40-54); Hemoglobin 15.1 g/dL (13.0-16.5); Lymphocyte # 1.18 X10^3/ul (4.0); Lymphocyte % 13.6 % (19-41); Mean Corp Hgb Conc 33.1 g/dL (32-36); Mean Corpuscular Hgb 29.2 pg (27.0-32.0); Mean Platelet Vol. 9.3 fl (6.2-12.0); Monocyte# 1.24 X10^3/uL; Monocyte% 14.3 % (0-10); NRBC Flagged by Analyzer 0 % (0-5); Neutrophil # 6.07 X10^3/uL (2.7-7.7); Neutrophil % 69.8 % (47-70); Platelet Count 215 K/mm3 (150-450); RBC Distribution Width CV 12.3 % (11.6-14.6); RBC Distribution Width SD 39.8 fl (35.1-43.9); Red Blood Count 5.18 M/mm3 (4.6-6.2); White Blood Count 8.7 K/mm3 (4.4-11.0)
[2019-12-01 21:54] VITALS: O2SAT 92
[2019-12-01 21:57] LABS: International Normalized Ratio 1.3; Prothrombin Time (Protime)PT. 16.4 SECONDS (11.7-14.9)
[2019-12-01 21:58] LABS: Partial Thromboplast Time 38.3 Seconds (24.1-36.2)
[2019-12-01 22:00] VITALS: BP 99/58; PULSE 89; RESP 20; O2SAT 92
[2019-12-01] MEDS: 0.9% Normal Saline 1,000 ML 150 ML IV (22:02)
[2019-12-01 22:08] LABS: ALB/GLOB Ratio 0.7 RATIO (0.9-2.4); AST(SGOT) 13 U/L (15-37); Alanine Aminotransfer ALT/SGPT 20 U/L (16-61); Albumin, Serum 2.8 g/dL (3.2-5.0); Alkaline Phosphatase 96 U/L (45-117); Anion Gap 6 (5-15); BUN 20 mg/dL (7-18); BUN/Creat Ratio 17.5 RATIO (10-20); Calcium,Total 9.1 mg/dL (8.5-10.1); Chloride 108 mmol/L (98-107); Creatinine, Serum 1.14 mg/dL (0.70-1.30); EST Glomerular Filtration Rate 69 mL/min (>60); Est Glom Filt Rate - Afr Amer 84 mL/min (>60); Estimated Creatinine Clearance 86.86 ml/min; Globulin 4.1 g/dL (2.2-4.2); Glucose 152 mg/dL (74-106); Potassium 3.2 mmol/L (3.5-5.1); Protein, Total 6.9 g/dL (6.4-8.2); Sodium Level 141 mmol/L (136-145)
[2019-12-01] MEDS: 0.9% Normal Saline 1,000 ML 999 ML IV (22:10)
[2019-12-01 22:15] LABS: Lactic Acid 1.3 mmol/L (0.4-1.9)
[2019-12-01 22:40] LABS: Mucous, Urine 0 SEEN /hpf (<or=2+)
[2019-12-01 22:44] LABS: Color, Urine Yellow (Yellow); Glucose, Dipstick Normal (Normal); Ketone-Dipstick Negative (Negative); Leukocyte Esterase-Dipstick 500 /ul (Negative); Nitrite-Dipstick Negative (Negative); Occult Blood-Urine 250 /ul (Negative); Protein-Dipstick 100 mg/dl (Negative); Specific Gravity, Urine 1.015 (1.002-1.030); Urine Bilirubin Dipstick Negative (Negative); Urine Clarity Cloudy (Clear); Urine Urobilinogen 1 mg/dl (Normal)
[2019-12-01 22:50] LABS: White Blood Cells >100 SEEN /hpf (0-5)
[2019-12-01 22:51] LABS: Red Blood Cells-Urine 10-25 SEEN /hpf (0-5)
[2019-12-01 22:52] LABS: Bacteria 1+ /hpf (None Seen); Squamous Epithelial Cells - UA 0-5 SEEN /hpf (0-5)
[2019-12-01 23:03] VITALS: BP 97/72; PULSE 80; RESP 20; TEMP 36.9; O2SAT 93
[2019-12-01] MEDS: Ceftriaxone 1 GM/50 ML BAG IV (23:10)
--- NOTE | 2019-12-01 23:23 | PCM.HP.STD ---
Problem List (1) Urinary tract infection Status: Acute Qualifiers: Urinary tract infection type: acute cystitis Hematuria presence: without hematuria Qualified Code(s): N30.00 - Acute cystitis without hematuria (2) Hypokalemia Status: Acute (3) Generalized weakness Status: Acute (4) Transient hypotension Status: Acute (5) Paroxysmal atrial fibrillation Status: Chronic (6) Pulmonary embolism Status: Chronic Qualifiers: Pulmonary embolism type: saddle Chronicity: acute Acute cor pulmonale presence: with acute cor pulmonale Qualified Code(s): I26.02 - Saddle embolus of pulmonary artery with acute cor pulmonale (7) Multiple sclerosis Status: Chronic (8) Hypertension Status: Chronic Qualifiers: (9) Hyperlipidemia Status: Chronic (10) Obstructive sleep apnea Status: Chronic (11) Recurrent UTI Status: Chronic History of Present Illness Date of Admission: 12/01/19 Chief Complaint: Generalised weakness - 2 days The patient is a 64 year old M with past medical history of multiple sclerosis with residual left hemiplegia, paroxysmal atrial fibrillation, history of PE on Eliquis, history of recurrent UTI, who comes in with progressive weakness noticed over the last couple of days. Patient at baseline is wheelchair-bound. He transfers from side to side out of the wheelchair. He was noted to be progressively weak and found to be slumped over today. He denied any subjective fever or chills. He says he just did not feel well. He has been getting diarrhea, last diarrhea was 5 days ago. No vomiting or chest pain or shortness of breath. Signs in the ED showed temperature of 90 9.8F, heart rate 89, respiratory 20, SPO2 was 90% on room air, improved to 92% on 4 L of oxygen. Patient later dropped his blood pressures to 87/52 which was responsive to IV fluids. His CBC D was unremarkable. INR 1.3. APTT 38.3. BMP was remarkable for potassium of 3.2, creatinine 1.14, which is at his baseline, BUN of 20, troponins were negative. UA was cloudy, nitrite negative, occult blood 250, leukocyte esterase 500, WBC more than 100, bacteria 1+ Past Medical History Past Medical History (Chronic Problems): Chronic Problems (Last Reviewed 09/29/19 @ 09:31 by Megan Munguia) Paroxysmal atrial fibrillation (Chronic) Pulmonary embolism (Chronic) Atrial septal defect (Chronic) Abnormal EKG (Chronic) Multiple sclerosis (Chronic) Hypertension (Chronic) Hyperlipidemia (Chronic) Obstructive sleep apnea (Chronic) Recurrent UTI (Chronic) Medical History: Medical History (Last Reviewed 09/29/19 @ 09:31 by Megan Munguia) Syncope due to orthostatic hypotension (Resolved) I95.1 Paroxysmal atrial fibrillation (Chronic) I48.0 Pulmonary embolism (Chronic) I26.99 Atrial septal defect (Chronic) Q21.1 Abnormal EKG (Chronic) R94.31 Multiple sclerosis (Chronic) G35 Hypertension (Chronic) I10 Hyperlipidemia (Chronic) E78.5 Obstructive sleep apnea (Chronic) G47.33 Bladder cancer (Resolved) After 1 round of chemotherapy 2014 Recurrent UTI (Chronic) N39.0 Kidney stones N20.0 Allergies No Known Allergies Allergy (Verified 09/29/19 09:31) Home Medications: Ambulatory Orders Medication Instructions Recorded Lisdexamfetamine Dimesylate 50 mg PO DAILY cap 08/29/17 [Vyvanse] Vitamin E (Dl,Tocopheryl Acet) 400 units PO DAILY 09/14/17 [Vitamin E] meclizine 25 mg tablet 25 mg PO PRN PRN 11/04/17 ocrelizumab 30 mg/mL intravenous 600 mg IV .COMPLEX 11/04/17 solution tizanidine 4 mg capsule 4 mg PO Q8H PRN 11/04/17 Apixaban [Eliquis] 5 mg PO BID 05/28/18 Cholecalciferol (VIT D3) [Vitamin 5,000 unit PO DAILY 05/28/18 D3] Duloxetine Hcl [Cymbalta] 60 mg PO QHS 05/28/18 Multivitamins,Therapeutic 1 tab PO DAILY 05/28/18 [Multivitamin] lisinopril 40 mg tablet 40 mg PO QDAY 06/29/18 hydrochlorothiazide 25 mg tablet 12.5 mg PO DAILY 01/08/19 carvedilol 12.5 mg tablet 12.5 mg PO BID #180 tab 02/12/19 simvastatin 20 mg tablet 20 mg PO QHS #90 tab 04/09/19 albuterol sulfate 2.5 mg INHALATION Q4H PRN #180 vial 08/12/19 Pantoprazole Sodium [Protonix] 40 mg PO DAILY 12/01/19 Terbinafine HCl 250 mg PO DAILY 12/01/19 Surgical History: Surgical History (Last Reviewed 09/29/19 @ 09:31 by Megan Munguia) History of vasectomy Z98.52 ureteroscopy Surgical History: - - colonoscopy, vasectomy, ureteroscopy Psychiatric History: No pertinent psych hx Lives: With Family Smoking Status: Never smoker Tobacco Use: Non-smoker Alcohol: None Drugs: None - *Family History Paternal Family History: Family History (Last Reviewed 09/29/19 @ 09:31 by Megan Munguia) Father CAD (coronary artery disease) Hypertension Myocardial infarction Mother Hypertension Sister Multiple sclerosis History Items: Hypertension Sibling Family History: Family History (Last Reviewed 09/29/19 @ 09:31 by Megan Munguia) Father CAD (coronary artery disease) Hypertension Myocardial infarction Mother Hypertension Sister Multiple sclerosis History Items: - - Sister with history of MS and due to a pulmonary embolism Maternal Family History: Family History (Last Reviewed 09/29/19 @ 09:31 by Megan Munguia) Father CAD (coronary artery disease) Hypertension Myocardial infarction Mother Hypertension Sister Multiple sclerosis History Items: No pertinent history Review of Systems Constitutional: Reports: Anorexia, Malaise, Weakness, Fatigue. Denies: Chills, Fever, Night Sweats, Weight Change Eyes: Denies: Blurred vision, Cataracts, Conjunctivae Inflammation HEENT: Denies: Difficulty Hearing, Difficulty Swallowing, Head Aches, Hearing Changes, Sinus Congestion, Sinus Drainage Cardiovascular: Denies: Chest Pain, Palpitations Respiratory: Denies: Cough, Shortness of breath at rest, Sputum production Gastrointestinal: Denies: Abdominal Pain, Nausea, Vomiting Genitourinary: Denies: Dysuria Musculoskeletal: Denies: Joint Pain, Joint stiffness, Joint swelling, Joint Tenderness Skin: Denies: Rash, Wounds Neurological: Denies: Numbness, Tingling, Focal weakness Psychiatric: Denies: Anxiety, Depression, Homicidal Ideations, Suicidal Ideations Hematologic/ Lymphatic: Denies: Easy Bruising, Easy Bleeding VTE Information - Inpt Only VTE Present on Admission: No VTE Pharm Prophylaxis ordered?: Yes Patient Problems: Active and Suspected Problems (Last Reviewed 09/29/19 @ 09:31 by Megan Munguia) Urinary tract infection (Acute) Hypokalemia (Acute) Generalized weakness (Acute) Transient hypotension (Acute) - Physical Exam Vitals/I&O's: Vital Signs Temp Pulse Resp BP Pulse Ox 98.4 F 80 20 H 97/72 93 12/01/19 23:03 12/01/19 23:03 12/01/19 23:03 12/01/19 23:03 12/01/19 23:03 Oxygen Flow Rate (L/min) 4 Oxygen Delivery Method Nasal Cannula Weight: 121.563 kg Body Mass Index (BMI) 30.9 Intake and Output for Last 24 Hours 11/29/19 11/30/19 12/01/19 23:59 23:59 23:59 Intake Total 1070 / 1070 Balance 1070 / 1070 General: Alert, Oriented x3, Cooperative, No apparent distress, - - on 4L oxygen HEENT: Atraumatic, PERRLA, EOMI, Normocephalic Oral: Moist Mucosa Neck: Supple Lungs: Clear to auscultation, Normal air movement Cardiovascular: Regular rate, Regular Rhythm, Normal S1, Normal S2, No murmurs Abdomen: Bowel Sounds Present, Soft, Non Tender, No Hepato-splenomegaly, Obese Extremities: No edema Skin: No rashes, No breakdown Musculoskeletal: No Tenderness to Palpation of Joints or Extremities Lymphatic: No Cervical, Supraclavicular, or Inguinal Adenopathy Neurological: Cranial nerves II-XII grossly intact, - - Left sided flaccid paralysis, Power in right UE 5/5, RLE 3/5 Psych/Mental Status: Normal Affect, Appropriate Laboratory Results 12/01/19 21:40: WBC 8.7, RBC 5.18, Hgb 15.1, Hct 45.6, MCV 88.0, MCH 29.2, MCHC 33.1, RDW Std Deviation 39.8, RDW Coeff of Bravo 12.3, Plt Count 215, MPV 9.3, Immature Gran % (Auto) 0.600, Neut % (Auto) 69.8, Lymph % (Auto) 13.6 L, [place] % (Auto) 14.3 H, Eos % (Auto) 1.2, Baso % (Auto) 0.5, Absolute Neuts (auto) 6.1, Absolute Lymphs (auto) 1.18, Nucleated RBC % 0 12/01/19 21:40: PT 16.4 H, INR 1.3, APTT 38.3 H 12/01/19 21:40: Sodium 141, Potassium 3.2 L, Chloride 108 H, Carbon Dioxide 27.0, Anion Gap 6, BUN 20 H, Creatinine 1.14, Estim Creat Clear Calc 86.86, Est GFR (MDRD) Af Amer 84, Est GFR (MDRD) Non-Af 69, BUN/Creatinine Ratio 17.5, Glucose 152 H, Calcium 9.1, Total Bilirubin 0.40, AST 13 L, ALT 20, Alkaline Phosphatase 96, Troponin I < 0.015, Total Protein 6.9, Albumin 2.8 L, Globulin 4.1, Albumin/Globulin Ratio 0.7 L 12/01/19 21:40: Lactic Acid 1.3 12/01/19 22:35: Urine Color Yellow, Urine Clarity Cloudy, Urine pH 6.0, Ur Specific [place] 1.015, Urine Protein 100 H, Urine Glucose (UA) Normal, Urine Ketones Negative, Urine Occult Blood 250 H, Urine Nitrite Negative, Urine Bilirubin Negative, Urine Urobilinogen 1 H, Ur Leukocyte Esterase 500 H, Urine RBC 10-25 SEEN, Urine WBC >100 SEEN, Ur Squamous Epith Cells 0-5 SEEN, Urine Bacteria 1+, Urine Mucus 0 SEEN Current Medications Apixaban (Eliquis) 5 mg PO BID [facility] Carvedilol (Coreg) 12.5 mg PO BID [facility] Cholecalciferol (Vitamin D) 5,000 unit PO DAILY [facility] Duloxetine HCl (Cymbalta) 60 mg PO DAILY [facility] Hydrochlorothiazide (Hctz) 12.5 mg PO DAILY [facility] Sodium Chloride () 1,000 mls @ 150 mls/hr IV .Q6H40M [facility] Last Infusion: 12/01/19 22:30 Dose: 0 mls/hr Documented by: Sodium Chloride () 1,000 mls @ 999 mls/hr IV .Q1H1M ONE Stop: 12/01/19 23:46 Last Infusion: 12/01/19 23:17 Dose: Infused Documented by: Lisinopril (Zestril) 40 mg PO QDAY [facility] Multivitamins (Multivitamin) tablet PO DAILY [facility] Non-Formulary Medication (Lisdexamfetamine Dimesylate) 50 mg PO DAILY [facility] Non-Formulary Medication (Simvastatin) 20 mg PO QHS [facility] Non-Formulary Medication (Terbinafine Hcl) 250 mg PO DAILY [facility] Non-Formulary Medication (Tizanidine Hcl [Zanaflex]) 4 mg PO Q8H PRN PRN Reason: MUSCLE SPASM Pantoprazole Sodium (Protonix) 40 mg PO DAILY [facility] Vitamin E (Vitamin E) 400 units PO DAILY [facility] Assessment/Plan All Active Problems (Last Reviewed 09/29/19 @ 09:31 by Megan Munguia) Urinary tract infection (Acute) Hypokalemia (Acute) Generalized weakness (Acute) Transient hypotension (Acute) Syncope due to orthostatic hypotension (Resolved) Bladder cancer (Resolved) Syncope (Acute) Cystitis (Acute) Hypotension (Acute) 64 year old M with past medical history of multiple sclerosis with residual left hemiplegia, paroxysmal atrial fibrillation, history of PE on Eliquis, history of recurrent UTI, who comes in with progressive weakness noticed over the last couple of days. 1. Acute UTI, history of recurrent UTI, patient has incontinence of urine, Previous blood cultures grew E. coli, enterococcus, staph simulans Started on IV ceftriaxone from the ED; will continue same Blood and urine cultures are pending from the ED; follow-up on these 2. Hypotension, likely related to dehydration/acute UTI Responsive to fluids, continue on IV fluids, continue to monitor 3. Hypertension, now hypotension Will continue home meds when BP are better 4. Debility secondary to acute UTI in a patient with multiple sclerosis Patient has residual left-sided flaccid paralysis, transfers from wheelchair to chair on a [id number] basis PT and OT to evaluate and treat 5. History of PE, on Eliquis 6. JOSH, noncompliant with CPAP 7. DVT PPx-on Eliquis Code Visit OBSV E&M: 84629 Initial observation care L2
[2019-12-01 23:47] VITALS: BP 96/68; PULSE 76; RESP 16; O2SAT 92
[2019-12-02] VITALS (14 sets, daily range): BP systolic 94–133; BP diastolic 59–82; PULSE 59–91; RESP 16–20; TEMP 36.6–37; O2SAT 90–96; BMI 29.5; BMI 29.6
[2019-12-02 01:30] LABS: Magnesium 2.1 mg/dL (1.6-2.6)
[2019-12-02] MEDS: 0.9% Normal Saline 1,000 ML 150 ML IV ×3 (05:44→19:17)
[2019-12-02 06:09] LABS: Absolute Lymphocyte Count 1.15 X10^3/uL (0.83-4.51); Absolute Neutrophil Count 4.8 X10^3/uL (2.0-7.7); Basophil# 0.03 X10^3/uL; Basophil% 0.4 % (0-1); Eosinophil# 0.12 X10^3/uL; Eosinophils% 1.7 % (0-5); Hematocrit 46.3 % (40-54); Hemoglobin 14.8 g/dL (13.0-16.5); Lymphocyte # 1.15 X10^3/ul (4.0); Lymphocyte % 16.2 % (19-41); Mean Corpuscular Hgb 28.5 pg (27.0-32.0); Mean Corpuscular Volume 89.2 fL (80-94); Mean Platelet Vol. 9.4 fl (6.2-12.0); Monocyte# 0.98 X10^3/uL; Monocyte% 13.8 % (0-10); NRBC Flagged by Analyzer 0 % (0-5); Neutrophil # 4.77 X10^3/uL (2.7-7.7); Neutrophil % 67.3 % (47-70); Platelet Count 178 K/mm3 (150-450); RBC Distribution Width CV 12.4 % (11.6-14.6); RBC Distribution Width SD 40.7 fl (35.1-43.9); Red Blood Count 5.19 M/mm3 (4.6-6.2); White Blood Count 7.1 K/mm3 (4.4-11.0)
[2019-12-02 06:28] LABS: ALB/GLOB Ratio 0.7 RATIO (0.9-2.4); AST(SGOT) 10 U/L (15-37); Alanine Aminotransfer ALT/SGPT 20 U/L (16-61); Albumin, Serum 2.6 g/dL (3.2-5.0); Alkaline Phosphatase 92 U/L (45-117); Anion Gap 6 (5-15); BUN 17 mg/dL (7-18); BUN/Creat Ratio 14.3 RATIO (10-20); Calcium,Total 8.8 mg/dL (8.5-10.1); Chloride 108 mmol/L (98-107); Creatinine, Serum 1.19 mg/dL (0.70-1.30); EST Glomerular Filtration Rate 66 mL/min (>60); Est Glom Filt Rate - Afr Amer 80 mL/min (>60); Estimated Creatinine Clearance 81.11 ml/min; Globulin 3.9 g/dL (2.2-4.2); Glucose 89 mg/dL (74-106); Potassium 3.3 mmol/L (3.5-5.1); Protein, Total 6.5 g/dL (6.4-8.2); Sodium Level 143 mmol/L (136-145)
[2019-12-02] MEDS: Multivitamins,Therapeutic Tablet 1 TABLET PO (09:52)
[2019-12-02] MEDS: Vitamin E 400 UNITS Capsule PO (09:52)
[2019-12-02] MEDS: DULoxetine Hcl 60 MG Capsule PO (09:53)
[2019-12-02] MEDS: Carvedilol 12.5 MG Tablet PO ×2 (09:53→21:03)
[2019-12-02] MEDS: APIXABAN 5 MG TABLET PO ×2 (09:53→21:03)
[2019-12-02] MEDS: hydroCHLOROthiazide 12.5mg 12.5 MG PO (09:53)
[2019-12-02] MEDS: Pantoprazole Sodium 40 MG Tablet PO (09:54)
[2019-12-02] MEDS: Lisinopril 40 MG Tablet PO (09:54)
[2019-12-02] MEDS: TERBINAFINE HCL 250 MG TABLET PO (09:55)
[2019-12-02] MEDS: LISDEXAMFETAMINE DIMESYLATE 50 MG CAPSULE PO (10:01)
--- NOTE | 2019-12-02 13:30 | PCM.PN.HOSP ---
Patient Problems: Active and Suspected Problems (Last Reviewed 09/29/19 @ 09:31 by Megan Munguia) Urinary tract infection (Acute) Hypokalemia (Acute) Generalized weakness (Acute) Transient hypotension (Acute) Subjective: Feeling better than when he came in, feels not as weak. Vitals/I&O's: Vital Signs Temp Pulse Resp BP Pulse Ox 97.9 F 80 16 133/77 H 96 12/02/19 09:42 12/02/19 11:39 12/02/19 09:42 12/02/19 09:42 12/02/19 09:42 Oxygen Flow Rate (L/min) 2 Oxygen Delivery Method Room Air Weight: 263 lb 3.711 oz Body Mass Index (BMI) 29.5 Intake and Output for Last 24 Hours 11/30/19 12/01/19 12/02/19 23:59 23:59 23:59 Intake Total 1120 / 1120 2697.5 / 2697.5 Output Total 300 / 300 Balance 1120 / 1120 2397.5 / 2397.5 General: Alert, Oriented x3, Cooperative, No apparent distress HEENT: Atraumatic, PERRLA, EOMI, Normocephalic Oral: Moist Mucosa Neck: Supple, No JVD Lungs: Clear to auscultation, Normal air movement, No rhonchi, No wheeze, No rales, Diminished Cardiovascular: Regular rate, Regular Rhythm, Normal S1, Normal S2, No murmurs Abdomen: Soft, Non Tender, Non-Distended, No Hepato-splenomegaly Extremities: No edema, Capillary Refill Less than 3 Seconds Skin: No rashes, No breakdown Neurological: Neuro grossly intact - Right side has normal strength, left side is at his baseline weakness secondary to his MS, Sensory exam intact to light touch and pain Psych/Mental Status: Normal Affect, Appropriate Microbiology Past 72 Hours 12/01/19 22:35 Urine Catheter - Vo Urine Culture - Preliminary Presumptive E. coli Laboratory Results 12/01/19 21:40: WBC 8.7, RBC 5.18, Hgb 15.1, Hct 45.6, MCV 88.0, MCH 29.2, MCHC 33.1, RDW Std Deviation 39.8, RDW Coeff of Bravo 12.3, Plt Count 215, MPV 9.3, Immature Gran % (Auto) 0.600, Neut % (Auto) 69.8, Lymph % (Auto) 13.6 L, [place] % (Auto) 14.3 H, Eos % (Auto) 1.2, Baso % (Auto) 0.5, Absolute Neuts (auto) 6.1, Absolute Lymphs (auto) 1.18, Nucleated RBC % 0 12/01/19 21:40: PT 16.4 H, INR 1.3, APTT 38.3 H 12/01/19 21:40: Sodium 141, Potassium 3.2 L, Chloride 108 H, Carbon Dioxide 27.0, Anion Gap 6, BUN 20 H, Creatinine 1.14, Estim Creat Clear Calc 86.86, Est GFR (MDRD) Af Amer 84, Est GFR (MDRD) Non-Af 69, BUN/Creatinine Ratio 17.5, Glucose 152 H, Calcium 9.1, Total Bilirubin 0.40, AST 13 L, ALT 20, Alkaline Phosphatase 96, Troponin I < 0.015, Total Protein 6.9, Albumin 2.8 L, Globulin 4.1, Albumin/Globulin Ratio 0.7 L 12/01/19 21:40: Lactic Acid 1.3 12/01/19 21:40: Magnesium 2.1 12/01/19 22:35: Urine Color Yellow, Urine Clarity Cloudy, Urine pH 6.0, Ur Specific [place] 1.015, Urine Protein 100 H, Urine Glucose (UA) Normal, Urine Ketones Negative, Urine Occult Blood 250 H, Urine Nitrite Negative, Urine Bilirubin Negative, Urine Urobilinogen 1 H, Ur Leukocyte Esterase 500 H, Urine RBC 10-25 SEEN, Urine WBC >100 SEEN, Ur Squamous Epith Cells 0-5 SEEN, Urine Bacteria 1+, Urine Mucus 0 SEEN 12/02/19 05:35: WBC 7.1, RBC 5.19, Hgb 14.8, Hct 46.3, MCV 89.2, MCH 28.5, MCHC 32.0, RDW Std Deviation 40.7, RDW Coeff of Bravo 12.4, Plt Count 178, MPV 9.4, Immature Gran % (Auto) 0.600, Neut % (Auto) 67.3, Lymph % (Auto) 16.2 L, [place] % (Auto) 13.8 H, Eos % (Auto) 1.7, Baso % (Auto) 0.4, Absolute Neuts (auto) 4.8, Absolute Lymphs (auto) 1.15, Nucleated RBC % 0 12/02/19 05:35: Sodium 143, Potassium 3.3 L, Chloride 108 H, Carbon Dioxide 29.0, Anion Gap 6, BUN 17, Creatinine 1.19, Estim Creat Clear Calc 81.11, Est GFR (MDRD) Af Amer 80, Est GFR (MDRD) Non-Af 66, BUN/Creatinine Ratio 14.3, Glucose 89, Calcium 8.8, Total Bilirubin 0.50, AST 10 L, ALT 20, Alkaline Phosphatase 92, Total Protein 6.5, Albumin 2.6 L, Globulin 3.9, Albumin/Globulin Ratio 0.7 L Current Medications Acetaminophen (Tylenol) 650 mg PO Q6H PRN PRN PRN Reason: Pain Score 1-10/Temp > 100.7 F Al Hydroxide/Mg Hydroxide (Mylanta Ii) 30 ml PO Q6H PRN PRN PRN Reason: Gastric Burning Albuterol Sulfate (Ventolin Aerosols) 2.5 mg INHALATION Q2H PRN PRN PRN Reason: SOB/Wheezing Apixaban (Eliquis) 5 mg PO BID [facility] Last Admin: 12/02/19 09:53 Dose: 5 mg Documented by: Atorvastatin Calcium (Lipitor) 10 mg PO QHS [facility] Carvedilol (Coreg) 12.5 mg PO BID [facility] Last Admin: 12/02/19 09:53 Dose: 12.5 mg Documented by: Cholecalciferol (Vitamin D) 5,000 unit PO DAILY [facility] [place] Last Admin: 12/02/19 09:55 Dose: 5,000 unit Documented by: Duloxetine HCl (Cymbalta) 60 mg PO DAILY [facility] [place] Last Admin: 12/02/19 09:53 Dose: 60 mg Documented by: Hydrochlorothiazide () 12.5 mg PO DAILY [facility] [place] Last Admin: 12/02/19 09:53 Dose: 12.5 mg Documented by: Sodium Chloride () 1,000 mls @ 150 mls/hr IV .Q6H40M [facility] [place] Last Admin: 12/02/19 12:24 Dose: 150 mls/hr Documented by: Sodium Chloride () 250 mls @ 15 mls/hr IV .[id number] PRN PRN Reason: Saline Flush Sodium Chloride () 250 mls @ 15 mls/hr IV .C25T01H PRN PRN Reason: Additional IVPB Infusion Ceftriaxone Sodium (Rocephin) 1 gm in 50 mls @ 100 mls/hr IV Q24@2200 [facility] [place] Lisdexamfetamine Dimesylate (Vyvanse) 50 mg PO DAILY [facility] [place] Last Admin: 12/02/19 10:01 Dose: 50 mg Documented by: Lisinopril (Zestril) 40 mg PO DAILY [facility] [place] Last Admin: 12/02/19 09:54 Dose: 40 mg Documented by: Melatonin (Melatonin) 3 mg PO QHS PRN PRN PRN Reason: INSOMNIA [facility] Admin: 12/02/19 09:52 Dose: 1 tablet Documented by: Ondansetron HCl (Zofran) 4 mg IV Q8H PRN PRN PRN Reason: NAUSEA/VOMITING Pantoprazole Sodium (Protonix) 40 mg PO DAILY [facility] [place] Last Admin: 12/02/19 09:54 Dose: 40 mg Documented by: Sodium Chloride () 10 - 40 ml IV UD PRN PRN Reason: SALINE FLUSH Terbinafine HCl (Terbinafine Hcl) 250 mg PO DAILY [facility] [place] Last Admin: 12/02/19 09:55 Dose: 250 mg Documented by: Tizanidine HCl (Zanaflex) 4 mg PO Q8H PRN PRN PRN Reason: MUSCLE SPASM Vitamin E (Vitamin E) 400 units PO DAILYCM [facility] Last Admin: 12/02/19 09:52 Dose: 400 units Documented by: STROKE Vital Signs/Narrative: Vital Signs Temp Pulse Resp BP Pulse Ox 12/02/19 11:39 80 12/02/19 09:42 97.9 F 91 16 133/77 H 96 Medical Necessity - Tobacco Use Smoking Status: Never smoker Tobacco Use: Non-smoker Assessment/Plan All Active Problems (Last Reviewed 09/29/19 @ 09:31 by Megan Munguia) Urinary tract infection (Acute) Hypokalemia (Acute) Generalized weakness (Acute) Transient hypotension (Acute) Syncope due to orthostatic hypotension (Resolved) Bladder cancer (Resolved) Syncope (Acute) Cystitis (Acute) Hypotension (Acute) 1. Acute UTI/pseudo-MS flare -Appears to be an E. coli, sensitivities are pending -Continue with Rocephin -His worsening weakness is likely a pseudo-flare of his MS, and as the UTI is being treated his flare is improving -Continue with IV fluids for now -Wean off oxygen as he is not on any home O2, he does wear a CPAP at home for his obstructive sleep apnea 2. HTN/HLD/history of PE -Initially on presentation he was hypotensive -Blood pressures systolic today are in the 130s, will continue to hold his blood pressure medications and can likely restart in the morning -Continue with Eliquis 3. MS -From discussions with him, it sounds like he has a slow progressive form, and over the last 10 years he is gotten steadily worse -Continue with Vyvanse, ocrelizumab 4. GERD -Stable -Continue with PPI 5. Anxiety/depression -Stable -Continue with Cymbalta DVT: Enedelia Code Visit OBSV E&M: 92243 Subsequent observation care L2
--- NOTE | 2019-12-02 14:40 | CHAPLAIN ---
Type of Pastoral Visit _x__ Initial Visit ___ Follow-up Visit ___ On-call Visit ___ General Patient Visit ___ Spiritual Assessment ___ Family Conference ___ Bereavement ___ Rapid Response ___ Code Blue ___ Other (describe below) Pastoral Care Referral From _x__ Patient ___ Family ___ Nurse ___ Physician ___ Rotary Soil Stabilizer ___ Changeover Operator ___ Other (describe below) Sacrament/Intervention _x__ Active listening ___ Anointing ___ Anabaptism ___ Bereavement ___ Communion ___ Terri exploration ___ _x__ Life review _x__ Prayer ___ Reconciliation ___ Sacrament of Sick _x__ Supportive presence ___ Wedding ___ Other (describe below) Pastoral Comments
[2019-12-02] MEDS: Atorvastatin Calcium 10 MG Tablet PO (21:03)
[2019-12-02] MEDS: Ceftriaxone 1 GM/50 ML BAG IV (21:07)
[2019-12-02 22:14] LABS: Anion Gap 5 (5-15); BUN 15 mg/dL (7-18); Calcium,Total 8.8 mg/dL (8.5-10.1); Chloride 112 mmol/L (98-107); Creatinine, Serum 1.25 mg/dL (0.70-1.30); EST Glomerular Filtration Rate 62 mL/min (>60); Est Glom Filt Rate - Afr Amer 75 mL/min (>60); Estimated Creatinine Clearance 77.22 ml/min; Glucose 127 mg/dL (74-106); Magnesium 1.8 mg/dL (1.6-2.6); Potassium 3.5 mmol/L (3.5-5.1); Sodium Level 143 mmol/L (136-145)
[2019-12-03] VITALS (7 sets, daily range): BP systolic 103–126; BP diastolic 55–79; PULSE 78–143; RESP 17–18; TEMP 36.6–36.7; O2SAT 91–94
[2019-12-03] MEDS: tiZANidine HCl 2 MG Tablet 4 MG PO (00:48)
[2019-12-03] MEDS: 0.9% Normal Saline 1,000 ML 150 ML IV (01:37)
[2019-12-03 05:34] LABS: Anion Gap 4 (5-15); BUN 13 mg/dL (7-18); BUN/Creat Ratio 12.4 RATIO (10-20); Calcium,Total 8.2 mg/dL (8.5-10.1); Chloride 112 mmol/L (98-107); Creatinine, Serum 1.05 mg/dL (0.70-1.30); EST Glomerular Filtration Rate 76 mL/min (>60); Est Glom Filt Rate - Afr Amer 92 mL/min (>60); Estimated Creatinine Clearance 91.93 ml/min; Glucose 115 mg/dL (74-106); Potassium 3.6 mmol/L (3.5-5.1); Sodium Level 142 mmol/L (136-145)
[2019-12-03] MEDS: Multivitamins,Therapeutic Tablet 1 TABLET PO (08:23)
[2019-12-03] MEDS: Vitamin E 400 UNITS Capsule PO (08:23)
[2019-12-03] MEDS: Carvedilol 12.5 MG Tablet PO (08:34)
--- NOTE | 2019-12-03 08:49 | NURSING ---
pt in afib and hr 120 and 140's. studio operations engineer in charge aware and dr. saha texted. pt with no c/o any pain. stated, i actually feel good today new order to give coreg early and will monitor. in talking with
--- NOTE | 2019-12-03 09:49 | CASEMGMT ---
Case Management Progress Note: Went to patient bedside, Introduced self and role to patient and Dtr at bedside. Explained/reviewed BAER form with patient in regards to current treatment this hospital stay. Informed Outpatient ,billing is determined by his insurance policy and continual review for any changes in condition is conducted to determine if Inpatient status is warranted. Patient acknowledged BAER form and denies any questions, authorizes his Dtr at bedside to sign BAER form for him as he is currently getting vital signs taken by staff at bedside. Signed BAER form placed in patient hard chart and patient provided a copy. Beata Martin RNCM
[2019-12-03] MEDS: APIXABAN 5 MG TABLET PO (10:16)
[2019-12-03] MEDS: hydroCHLOROthiazide 12.5mg 12.5 MG PO (10:16)
[2019-12-03] MEDS: Pantoprazole Sodium 40 MG Tablet PO (10:16)
[2019-12-03] MEDS: DULoxetine Hcl 60 MG Capsule PO (10:16)
[2019-12-03] MEDS: TERBINAFINE HCL 250 MG TABLET PO (10:17)
[2019-12-03] MEDS: Lisinopril 40 MG Tablet PO (10:18)
[2019-12-03] MEDS: LISDEXAMFETAMINE DIMESYLATE 50 MG CAPSULE PO (10:30)
[2019-12-03] MEDS: 0.9% Saline Lock 10 ML Syringe IV (10:47)
[2019-12-03] MEDS: Metoprolol Tartrate 5 MG/5 ML Vial IV (10:47)
--- NOTE | 2019-12-03 11:51 | CASEMGMT ---
CLEMENTINA spoke with patient and asked if his plan is to return home at discharge. He said that is his plan and he thinks he will be discharged today. Nicky BERMUDEZ MSW
--- NOTE | 2019-12-03 13:43 | CASEMGMT ---
Therapy is recommending further therapy at this time and pt is agreeable to [facility] at this time. Pt states has had [facility] in the past and would like them again. Order placed for PT/OT at this time. Pt voices no further questions/concerns/needs at this time. Call to Erica at [facility] to notify of referral and message left at this time. Obed JOHNSON CM
--- NOTE | 2019-12-03 13:54 | DCINST_ITS ---
- Discharge Diagnoses Current Active Problems: Current Active and Chronic Problems (Last Reviewed 09/29/19 @ 09:31 by Megan Munguia) Urinary tract infection (Acute) Hypokalemia (Acute) Generalized weakness (Acute) Transient hypotension (Acute) Multiple sclerosis (Chronic) You will use the following diet at home:: Cardiac Your food should be the consistency of: Regular Your liquids should be the consistency of: Regular/Thin Discharge Activity: Return to Normal Activity Call your doctor if you observe: Fever of 101 or Higher, Shortness of breath, Dizziness, Fainting spells, Swelling in the ankles, Chest pain, Increased palpitations (irregular heartbeat) Allergies/Adverse Reactions: Allergies No Known Allergies Allergy (Verified 09/29/19 09:31) Medications to take at Discharge Lisdexamfetamine Dimesylate [Vyvanse] 50 mg PO DAILY cap 08/29/17 Vitamin E (Dl,Tocopheryl Acet) [Vitamin E] 400 units PO DAILY 09/14/17 meclizine 25 mg tablet 25 mg PO PRN PRN 11/04/17 ocrelizumab 30 mg/mL intravenous solution 600 mg IV .COMPLEX 11/04/17 tizanidine 4 mg capsule 4 mg PO Q8H PRN 11/04/17 Apixaban [Eliquis] 5 mg PO BID 05/28/18 Cholecalciferol (VIT D3) [Vitamin D3] 5,000 unit PO DAILY 05/28/18 Duloxetine Hcl [Cymbalta] 60 mg PO QHS 05/28/18 Multivitamins,Therapeutic [Multivitamin] 1 tab PO DAILY 05/28/18 lisinopril 40 mg tablet 40 mg PO QDAY 06/29/18 hydrochlorothiazide 25 mg tablet 12.5 mg PO DAILY 01/08/19 carvedilol 12.5 mg tablet 12.5 mg PO BID #180 tab 02/12/19 simvastatin 20 mg tablet 20 mg PO QHS #90 tab 04/09/19 albuterol sulfate 2.5 mg INHALATION Q4H PRN #180 vial 08/12/19 Pantoprazole Sodium [Protonix] 40 mg PO DAILY 12/01/19 Terbinafine HCl 250 mg PO DAILY 12/01/19 Cephalexin [Keflex] 500 mg PO Q6 #20 cap 12/03/19 The following prescriptions were given: Cephalexin [Keflex] 500 mg PO Q6 #20 cap Transmission Status: Pending to [facility] Primary Care Physician: Amanuel Duckworth III, MD [Primary Care Provider] - Please follow up with your Primary Care Physician in: 3-5 days Test Results: Test results from this visit will be discussed in further detail at your follow- up appointment, if applicable.
--- NOTE | 2019-12-03 13:58 | PCM.DC.SUM ---
Discharge Date and Diagnosis Date of Admission: 12/01/19 Date of Discharge: 12/03/19 - Primary Discharge Diagnosis Active and Suspected Problems (Last Reviewed 09/29/19 @ 09:31 by Megan Munguia) Urinary tract infection (Acute) Hypokalemia (Acute) Generalized weakness (Acute) Transient hypotension (Acute) - Secondary Discharge Diagnosis Chronic Problems (Last Reviewed 09/29/19 @ 09:31 by Megan Munguia) Paroxysmal atrial fibrillation (Chronic) Pulmonary embolism (Chronic) Atrial septal defect (Chronic) Abnormal EKG (Chronic) Multiple sclerosis (Chronic) Hypertension (Chronic) Hyperlipidemia (Chronic) Obstructive sleep apnea (Chronic) Recurrent UTI (Chronic) Hospital Course and Treatment Imaging Results: CXR: FINDINGS: No evidence of pneumonia, pulmonary edema, pneumothorax or pleural effusion. Elevated hemidiaphragms with left greater than right basilar subsegmental atelectasis similar to previous. Cardiac silhouette, hilar and mediastinal contours with no acute findings. Heart size normal. Atherosclerosis of the thoracic aorta. Degenerative osseous changes with no acute osseous abnormality. Distended air-filled loops of bowel beneath both hemidiaphragms similar to previous. Consults: None Operations: None Procedures: None Summary of Care Provided: Per HPI: The patient is a 64 year old M with past medical history of multiple sclerosis with residual left hemiplegia, paroxysmal atrial fibrillation, history of PE on Eliquis, history of recurrent UTI, who comes in with progressive weakness noticed over the last couple of days. Patient at baseline is wheelchair-bound. He transfers from side to side out of the wheelchair. He was noted to be progressively weak and found to be slumped over today. He denied any subjective fever or chills. He says he just did not feel well. He has been getting diarrhea, last diarrhea was 5 days ago. No vomiting or chest pain or shortness of breath. Signs in the ED showed temperature of 90 9.8F, heart rate 89, respiratory 20, SPO2 was 90% on room air, improved to 92% on 4 L of oxygen. Patient later dropped his blood pressures to 87/52 which was responsive to IV fluids. His CBC D was unremarkable. INR 1.3. APTT 38.3. BMP was remarkable for potassium of 3.2, creatinine 1.14, which is at his baseline, BUN of 20, troponins were negative. UA was cloudy, nitrite negative, occult blood 250, leukocyte esterase 500, WBC more than 100, bacteria 1+ Hospital Course: 1. Acute UTI with a pseudo-MS [id number] male with MS with left hemiplegia from it presents to the hospital with progressive weakness over the last couple of days prior to admission. He has a history of a UTI and he says a similar thing happens with weakness whenever he gets a UTI. His UA in fact did demonstrate a UTI which came back as E. coli that was sensitive to everything except for ampicillin. He was started on Rocephin and has steadily been improving. Also when he came in he has oxygen saturation was on the low side at around 90, he was placed on oxygen and initially was up to about 4 L by nasal cannula and this steadily improved. Today he was on room air and was feeling well. He was ultimately discharged on Keflex for 5 days will need to follow-up with his primary care physician in 3 to 5 days for further evaluation. 2. HTN/HLD/history of PE/paroxysmal A. fib-on the day of discharge he went into A. fib. He was completely asymptomatic and after he received a dose of his Coreg his heart rate dropped into the low 100s. He did increase his heart rate a little bit with activity and was also given a dose of Lopressor. I feel that part of his sudden jump into paroxysmal A. fib was that he had been continued on 150 cc of fluid during his stay and was likely a little fluid overloaded. I discussed with him the risks of going home versus the benefits of staying, he felt that he would do fine at home and that he would prefer to go home today since he was feeling better. I discussed with him that if he gets lightheaded or dizzy or if he develops any type of chest pain he is to return to the hospital for evaluation. He is to continue his Coreg as prescribed. 3. His other medical diagnoses were evaluated and his home medications were continued where appropriate - Physical Exam Vitals/I&O's: Vital Signs Temp Pulse Resp BP Pulse Ox 98.1 F 132 H 17 126/79 H 91 12/03/19 10:00 12/03/19 10:47 12/03/19 10:00 12/03/19 10:47 12/03/19 10:00 Oxygen Flow Rate (L/min) 2 Oxygen Delivery Method Room Air Weight: 262 lb 9.129 oz Body Mass Index (BMI) 29.5 Intake and Output for Last 24 Hours 12/01/19 12/02/19 12/03/19 23:59 23:59 23:59 Intake Total 1120 / 1120 4787.5 / 4787.5 1861.5 / 1861.5 Output Total 300 / 300 Balance 1120 / 1120 4487.5 / 4487.5 1861.5 / 1861.5 General: Alert, Oriented x3, Cooperative, No apparent distress HEENT: Atraumatic, PERRLA, EOMI, Normocephalic Oral: Moist Mucosa Neck: Supple, No JVD Lungs: Clear to auscultation, Normal air movement, No rhonchi, No wheeze, No rales, Diminished Cardiovascular: Regular rate, Regular Rhythm, Normal S1, Normal S2, No murmurs Abdomen: Soft, Non Tender, Non-Distended, No Hepato-splenomegaly Extremities: No edema, Capillary Refill Less than 3 Seconds Skin: No rashes, No breakdown Neurological: Neuro grossly intact - Right side has normal strength, left side is at his baseline weakness secondary to his MS, Sensory exam intact to light touch and pain Psych/Mental Status: Normal Affect, Appropriate Microbiology Past 72 Hours 12/01/19 22:35 Urine Catheter - Vo Urine Culture - Final Presumptive E. coli Laboratory Results 12/02/19 21:26: Sodium 143, Potassium 3.5, Chloride 112 H, Carbon Dioxide 26.0, Anion Gap 5, BUN 15, Creatinine 1.25, Estim Creat Clear Calc 77.22, Est GFR (MDRD) Af Amer 75, Est GFR (MDRD) Non-Af 62, BUN/Creatinine Ratio 12.0, Glucose 127 H, Calcium 8.8, Magnesium 1.8 12/03/19 04:38: Sodium 142, Potassium 3.6, Chloride 112 H, Carbon Dioxide 26.0, Anion Gap 4 L, BUN 13, Creatinine 1.05, Estim Creat Clear Calc 91.93, Est GFR (MDRD) Af Amer 92, Est GFR (MDRD) Non-Af 76, BUN/Creatinine Ratio 12.4, Glucose 115 H, Calcium 8.2 L Current Medications Acetaminophen (Tylenol) 650 mg PO Q6H PRN PRN PRN Reason: Pain Score 1-10/Temp > 100.7 F Al Hydroxide/Mg Hydroxide (Mylanta Ii) 30 ml PO Q6H PRN PRN PRN Reason: Gastric Burning Albuterol Sulfate (Ventolin Aerosols) 2.5 mg INHALATION Q2H PRN PRN PRN Reason: SOB/Wheezing Apixaban (Eliquis) 5 mg PO BID [facility] Last Admin: 12/03/19 10:16 Dose: 5 mg Documented by: Atorvastatin Calcium (Lipitor) 10 mg PO QHS [facility] Last Admin: 12/02/19 21:03 Dose: 10 mg Documented by: Carvedilol (Coreg) 12.5 mg PO BID [facility] Last Admin: 12/03/19 08:34 Dose: 12.5 mg Documented by: Cholecalciferol (Vitamin D) 5,000 unit PO DAILY [facility] Last Admin: 12/03/19 10:16 Dose: 5,000 unit Documented by: Duloxetine HCl (Cymbalta) 60 mg PO DAILY [facility] Last Admin: 12/03/19 10:16 Dose: 60 mg Documented by: Hydrochlorothiazide () 12.5 mg PO DAILY [facility] Last Admin: 12/03/19 10:16 Dose: 12.5 mg Documented by: Sodium Chloride () 250 mls @ 15 mls/hr IV .[id number] PRN PRN Reason: Saline Flush Sodium Chloride () 250 mls @ 15 mls/hr IV .[id number] PRN PRN Reason: Additional IVPB Infusion Ceftriaxone Sodium (Rocephin) 1 gm in 50 mls @ 100 mls/hr IV Q24@2200 [facility] Last Infusion: 12/02/19 21:37 Dose: Infused Documented by: Lisdexamfetamine Dimesylate (Vyvanse) 50 mg PO DAILY [facility] Last Admin: 12/03/19 10:30 Dose: 50 mg Documented by: Lisinopril (Zestril) 40 mg PO DAILY [facility] Last Admin: 12/03/19 10:18 Dose: 40 mg Documented by: Melatonin (Melatonin) 3 mg PO QHS PRN PRN PRN Reason: INSOMNIA [facility] Admin: 12/03/19 08:23 Dose: 1 tablet Documented by: Ondansetron HCl (Zofran) 4 mg IV Q8H PRN PRN PRN Reason: NAUSEA/VOMITING Pantoprazole Sodium (Protonix) 40 mg PO DAILY [facility] Last Admin: 12/03/19 10:16 Dose: 40 mg Documented by: Sodium Chloride () 10 - 40 ml IV UD PRN PRN Reason: SALINE FLUSH Last Admin: 12/03/19 10:47 Dose: 10 ml Documented by: Terbinafine HCl (Terbinafine Hcl) 250 mg PO DAILY [facility] Last Admin: 12/03/19 10:17 Dose: 250 mg Documented by: Tizanidine HCl (Zanaflex) 4 mg PO Q8H PRN PRN PRN Reason: MUSCLE SPASM Last Admin: 12/03/19 00:48 Dose: 4 mg Documented by: [facility]amin E) [facility] Admin: 12/03/19 08:23 Dose: 400 units Documented by: Discharge Activity: Return to Normal Activity Call your doctor if you observe: Fever of 101 or Higher, Shortness of breath, Dizziness, Fainting spells, Swelling in the ankles, Chest pain, Increased palpitations (irregular heartbeat) Home Medications: Medications to take at Discharge Lisdexamfetamine Dimesylate [Vyvanse] 50 mg PO DAILY cap 08/29/17 Vitamin E (Dl,Tocopheryl Acet) [Vitamin E] 400 units PO DAILY 09/14/17 meclizine 25 mg tablet 25 mg PO PRN PRN 11/04/17 ocrelizumab 30 mg/mL intravenous solution 600 mg IV .COMPLEX 11/04/17 tizanidine 4 mg capsule 4 mg PO Q8H PRN 11/04/17 Apixaban [Eliquis] 5 mg PO BID 05/28/18 Cholecalciferol (VIT D3) [Vitamin D3] 5,000 unit PO DAILY 05/28/18 Duloxetine Hcl [Cymbalta] 60 mg PO QHS 05/28/18 Multivitamins,Therapeutic [Multivitamin] 1 tab PO DAILY 05/28/18 lisinopril 40 mg tablet 40 mg PO QDAY 06/29/18 hydrochlorothiazide 25 mg tablet 12.5 mg PO DAILY 01/08/19 carvedilol 12.5 mg tablet 12.5 mg PO BID #180 tab 02/12/19 simvastatin 20 mg tablet 20 mg PO QHS #90 tab 04/09/19 albuterol sulfate 2.5 mg INHALATION Q4H PRN #180 vial 08/12/19 Pantoprazole Sodium [Protonix] 40 mg PO DAILY 12/01/19 Terbinafine HCl 250 mg PO DAILY 12/01/19 Cephalexin [Keflex] 500 mg PO Q6 #20 cap 12/03/19 Following Prescrptions Were Given to Patient: Cephalexin [Keflex] 500 mg PO Q6 #20 cap Transmission Status: Received by [facility] Primary Care Physician: Amanule Duckworth III, MD [Primary Care Provider] - Please follow up with your Primary Care Physician in: 3-5 days Disposition: Home Minutes spent on discharge:: 35 Patient Condition:: Stable Medical Necessity - Tobacco Use Smoking Status: Never smoker Tobacco Use: Non-smoker Meaningful Use Info Meaningful Use Diagnoses (Choose all that apply): None applicable Code Visit OBSV E&M: 96626 Observation care discharge
== END 2019-12-03 13:54 | disposition home health service (06) ==
LOC: ED 23:12 → PCU 23:45
PROVIDERS: Admitting Provider Internal Medicine; Emergency Provider Emergency Medicine; Family Provider Family Medicine; PCP Family Medicine; Referring Provider Internal Medicine; Visit Provider Family Medicine
DX: N30.00 Acute cystitis without hematuria (principal); E78.5 Hyperlipidemia, unspecified; G35 Multiple sclerosis; I10 Essential (primary) hypertension; G47.33 Obstructive sleep apnea (adult) (pediatric); I48.0 Paroxysmal atrial fibrillation; E87.6 Hypokalemia; I95.9 Hypotension, unspecified; I48.20 Chronic atrial fibrillation, unspecified; F41.9 Anxiety disorder, unspecified; F32.9 Major depressive disorder, single episode, unspecified; K21.9 Gastro-esophageal reflux disease without esophagitis; Z86.711 Personal history of pulmonary embolism; Z79.899 Other long term (current) drug therapy; Z85.51 Personal history of malignant neoplasm of bladder; Z79.01 Long term (current) use of anticoagulants; Z91.19 Patient's noncompliance with other medical treatment and regimen; Z99.3 Dependence on wheelchair
CPT/HCPCS: 36415; 71045; 80048; 80053; 81001; 83605; 83735; 84484; 85025; 85610; 85730; 87040; 87086; 87088; 87186; 96361; 96365; 96366; 96375; 97162; 97163; 97167; 97530; 97802; 99218; 99285; J7030; A4216; G0378

== ENCOUNTER 2020-01-16 14:02 | Inpatient (IN) | payer MEDICARE, SELFPAY ==
[2019-12-10 08:22] VITALS: BMI 29.5
[2020-01-16] VITALS (21 sets, daily range): BP systolic 82–156; BP diastolic 47–99; PULSE 74–136; RESP 15–27; TEMP 37.3–39.6; O2SAT 92–98; BMI 31.1; BMI 30.3
--- NOTE | 2020-01-16 14:30 | EKG12_ITS ---
Test Reason : FEVER Blood Pressure : / mmHG Vent. Rate : 130 BPM Atrial Rate : 130 BPM P-R Int : 176 ms QRS Dur : 140 ms QT Int : 320 ms P-R-T Axes : 000 -50 118 degrees QTc Int : 470 ms Sinus tachycardia Left axis deviation Left bundle branch block Abnormal ECG Confirmed by STEVE MURPHY ([id number]), offline editor TRACIE MUÑOZ ([id number]) on 01/19/2020 2:53:46 PM Referred By: Koby Sy Confirmed By:STEVE MURPHY
--- NOTE | 2020-01-16 14:32 | CT_ITS ---
STUDY: CT ABDOMEN AND PELVIS WITHOUT CONTRAST REASON FOR EXAM: Male, 64 years old. Fever RADIATION DOSAGE (If Supplied By Facility): DLP = ( 1540.89 ) mGycm TECHNIQUE: Transaxial images were obtained from the dome of the diaphragm to the symphysis pubis without oral contrast, and without intravenous contrast. Sagittal and coronal images were reconstructed. Individualized dose optimization techniques were used for this CT. COMPARISON: CT abdomen pelvis January 25, 2016 FINDINGS: Evaluation of the abdominal viscera is limited in the absence of intravenous contrast. Left lung base partially visualized consolidation is present. The visualized portions of the heart and pericardium are within normal limits. There are no calcified gallstones present. The liver demonstrates an unremarkable unenhanced appearance. The spleen is normal in size. The pancreas demonstrates an unremarkable unenhanced appearance. The adrenal glands are within normal limits. There are no obstructing renal stones. Punctate nonobstructing right renal stones are present. There is no hydronephrosis. A left extrarenal pelvis is present. There is mild diffuse urinary bladder wall thickening. Normal visualized stomach. There is no bowel obstruction or inflammation. There is prominent stool within the rectum and distal sigmoid colon. The aorta is normal in caliber. There is no abdominal or pelvic free air, free fluid, fluid collection or lymphadenopathy. There are no destructive osseous lesions. CT/Abdomen/Pelvis without Cont IMPRESSION: Partially visualized left lung base consolidation. Punctate nonobstructing right renal stones. Left extrarenal pelvis. Prominent stool within the rectum and distal sigmoid colon. Query stool impaction. Mild urinary bladder wall thickening. Consider cystitis. Electronically Signed: Aubrey Thomas, at 16:10 EST Tel , Service support ,
[2020-01-16 14:43] LABS: Absolute Lymphocyte Count 0.36 X10^3/uL (0.83-4.51); Absolute Neutrophil Count 12.2 X10^3/uL (2.0-7.7); Basophil# 0.05 X10^3/uL; Basophil% 0.4 % (0-1); Eosinophil# 0.06 X10^3/uL; Eosinophils% 0.5 % (0-5); Hematocrit 49.5 % (40-54); Hemoglobin 15.9 g/dL (13.0-16.5); Lymphocyte # 0.36 X10^3/ul (4.0); Lymphocyte % 2.8 % (19-41); Mean Corp Hgb Conc 32.1 g/dL (32-36); Mean Corpuscular Hgb 28.4 pg (27.0-32.0); Mean Corpuscular Volume 88.4 fL (80-94); Monocyte# 0.14 X10^3/uL; Monocyte% 1.1 % (0-10); NRBC Flagged by Analyzer 0 % (0-5); Neutrophil # 12.24 X10^3/uL (2.7-7.7); Neutrophil % 94.8 % (47-70); POSITIVE DIFFERENTIAL YES; Platelet Count 349 K/mm3 (150-450); RBC Distribution Width CV 12.9 % (11.6-14.6); RBC Distribution Width SD 41.7 fl (35.1-43.9); White Blood Count 12.9 K/mm3 (4.4-11.0)
[2020-01-16 14:52] LABS: Differential Indicated SCAN CRITERIA MET
[2020-01-16 14:58] LABS: International Normalized Ratio 1.3; Prothrombin Time (Protime)PT. 15.7 SECONDS (11.7-14.9)
[2020-01-16 14:59] LABS: Partial Thromboplast Time 29.4 Seconds (24.1-36.2)
--- NOTE | 2020-01-16 15:00 | RAD_ITS ---
STUDY: X-RAY CHEST REASON FOR EXAM: Male, 64 years old. Chest pain TECHNIQUE: Frontal view of the chest COMPARISON: X-Ray Chest December 01, 2019 FINDINGS: Lung volumes are low with compressive changes. Left lung base atelectasis/infiltrate is present. The right lung is clear. There are no pleural effusions. There is no pneumothorax. The heart is normal in size. The visualized osseous structures are within normal limits. RAD/Chest 1 View (Portable) IMPRESSION: Left lung base atelectasis/infiltrate. Electronically Signed: Aubrey Thomas, at 15:28 EST Tel , Service support ,
[2020-01-16 15:06] LABS: ALB/GLOB Ratio 0.6 RATIO (0.9-2.4); AST(SGOT) 25 U/L (15-37); Alanine Aminotransfer ALT/SGPT 25 U/L (16-61); Albumin, Serum 3.1 g/dL (3.2-5.0); Alkaline Phosphatase 150 U/L (45-117); Anion Gap 7 (5-15); BUN 18 mg/dL (7-18); Calcium,Total 9.6 mg/dL (8.5-10.1); Chloride 106 mmol/L (98-107); EST Glomerular Filtration Rate 65 mL/min (>60); Est Glom Filt Rate - Afr Amer 79 mL/min (>60); Estimated Creatinine Clearance 82.51 ml/min; Globulin 4.9 g/dL (2.2-4.2); Glucose 67 mg/dL (74-106); Lactic Acid 3.1 mmol/L (0.4-1.9); Potassium 3.3 mmol/L (3.5-5.1); Sodium Level 144 mmol/L (136-145)
[2020-01-16] MEDS: Acetaminophen 500 MG Tablet 1000 MG PO (15:10)
[2020-01-16] MEDS: 0.9% Normal Saline 1,000 ML 999 ML IV ×3 (15:10→19:10)
[2020-01-16 15:11] LABS: Differential Comment SCANNED
[2020-01-16 15:18] LABS: Mucous, Urine 0 SEEN /hpf (<or=2+)
[2020-01-16 15:35] LABS: Color, Urine Yellow (Yellow); Glucose, Dipstick Normal (Normal); Ketone-Dipstick Negative (Negative); Leukocyte Esterase-Dipstick 500 /ul (Negative); Nitrite-Dipstick Negative (Negative); Occult Blood-Urine 250 /ul (Negative); Protein-Dipstick 30 mg/dl (Negative); Urine Bilirubin Dipstick Negative (Negative); Urine Clarity Cloudy (Clear); Urine Urobilinogen 1 mg/dl (Normal)
[2020-01-16 15:49] LABS: Bacteria 4+ /hpf (None Seen); Red Blood Cells-Urine 10-25 SEEN /hpf (0-5); Squamous Epithelial Cells - UA 0-5 SEEN /hpf (0-5); White Blood Cells 25-50 SEEN /hpf (0-5)
--- NOTE | 2020-01-16 16:02 | ED.VISSUMM ---
- ER Visit Summary Date of Service: 01/16/20 Chief Complaint: Fever with generalized weakness History of Present Illness: The patient is a 64 M history of prior pulmonary emboli on Eliquis, history of MS with left-sided weakness and recurrent UTIs. Family states when he gets an infection he gets a lot weaker. These are often from urinary tract infections. Physical Examination: Older male vital signs stable temperature 1-2.5. Heart rate 136. Pulse ox 97% on room air no signs hypoxia. H EENT exam unremarkable. Moist his membranes. Neck nontender no lymphadenopathy. Lungs clear to auscultation bilaterally. Heart tachycardic no murmur. Chest were nontender. Abdomen soft nontender. Extremities extremely weak left arm and leg that is chronic from his MS. Right upper right lower extremity unremarkable. Back nontender. Skin unremarkable. Other than warm to the touch secondary to his fever. No cellulitis. No bruising. Neurologically is awake and alert. He is chronic flaccid left upper and lower extremity. However he can answer questions and follow commands. Test Results: Chest x-ray chronic changes. Atelectasis in left base no obvious pneumonia. Normal cardiac silhouette. Read both by myself and the radiologist. CT flank study awaiting radiology interpretation. I see calcification of left renal pelvis but no seen acute stone. EKG sinus tachycardia rate of 130. With a left bundle branch block. CBC shows white count 12.9. Hemoglobin 15. No bands. Electrolytes potassium 3.3. Normal gap of 7 BUN 18 creatinine 1.2. Glucose 67. Liver enzymes unremarkable alk phos 150. PT PTT INR unremarkable. UA consistent with infection occult blood. 25-50 white cells. 10-25 red cells. 4+ bacteria. Blood and urine culture sent. Lactate 3.1 consistent with severe sepsis. Emergency Department Course and Treatment: Patient treated with IV fluids x2 L. Tylenol for his fever. IV Rocephin for UTI. I reviewed his last cultures and it was E. coli and sensitive to most antibiotics. Treatment Plan: Multiple repeat exams patient is doing well. Discussed with patient and family. Discussed with hospitalist on page. Due to severe sepsis to be placed in the ICU. Disposition: Admission Impression: Acute UTI/urosepsis Severe sepsis History of MS with chronic left-sided weakness History of pulmonary emboli anticoagulated on Eliquis This note was generated with Dragon dictation software. It may contain incorrect words, spelling, and punctuation that were not noted in review of the chart prior to signing ED Disposition - Plan for ED Patient: Referrals: Amanuel Duckworth III, MD [Primary Care Provider] -
--- NOTE | 2020-01-16 16:12 | NURSING ---
ICU SEVERE SEPSIS, UTI [facility]
[2020-01-16] MEDS: Ceftriaxone 1 GM/50 ML BAG IV (16:27)
--- NOTE | 2020-01-16 16:43 | PCM.HP.STD ---
<Juvenal Feliciano - Last Filed: 01/16/20 16:43> Problem List (1) Recurrent UTI Status: Acute (2) Severe sepsis Status: Acute (3) Paroxysmal atrial fibrillation Status: Chronic (4) Pulmonary embolism Status: Chronic (5) Atrial septal defect Status: Chronic (6) Multiple sclerosis Status: Chronic (7) Hypertension Status: Chronic (8) Hyperlipidemia Status: Chronic (9) Obstructive sleep apnea Status: Chronic (10) Bladder cancer Status: Resolved Comment: After 1 round of chemotherapy 2014 History of Present Illness Date of Admission: 01/16/20 Chief Complaint: chills The patient is a 64 year old M with past medical history notable for MS, chronic urinary incontinence, recurrent UTIs, history of bladder cancer in remission, who presented to the emergency room with chills. These were of sudden onset this afternoon at about 1:00 PM. The patient states he was in his normal state of health until then. He developed some dizziness as well. In the emergency room he appeared to have severe sepsis with leukocytosis, fever, lactic acidosis, tachycardia, tachypnea, and an abnormal urinalysis. He has been admitted multiple times with urinary tract infections, he has grown staph simulans and E. coli. He was given Rocephin in the emergency room. He states currently he feels comfortable with some dizziness still. He denies any urinary symptoms and has no urinary sensation due to his MS. He has no abdominal pain. He has no nausea or vomiting. He has no diarrhea. He has no shortness of breath or cough. [] Past Medical History Past Medical History (Chronic Problems): Chronic Problems (Last Reviewed 12/10/19 @ 17:28 by GARY Rayo) Paroxysmal atrial fibrillation (Chronic) Pulmonary embolism (Chronic) Atrial septal defect (Chronic) Abnormal EKG (Chronic) Multiple sclerosis (Chronic) Hypertension (Chronic) Hyperlipidemia (Chronic) Obstructive sleep apnea (Chronic) Medical History: Medical History (Last Reviewed 12/10/19 @ 17:28 by GARY Rayo) Syncope due to orthostatic hypotension (Resolved) I95.1 Paroxysmal atrial fibrillation (Chronic) I48.0 Pulmonary embolism (Chronic) I26.99 Atrial septal defect (Chronic) Q21.1 Abnormal EKG (Chronic) R94.31 Multiple sclerosis (Chronic) G35 Hypertension (Chronic) I10 Hyperlipidemia (Chronic) E78.5 Obstructive sleep apnea (Chronic) G47.33 Bladder cancer (Resolved) After 1 round of chemotherapy 2014 Recurrent UTI (Chronic) N39.0 Kidney stones N20.0 Allergies No Known Allergies Allergy (Verified 01/16/20 14:04) Home Medications: Ambulatory Orders Medication Instructions Recorded Lisdexamfetamine Dimesylate 50 mg PO DAILY cap 08/29/17 [Vyvanse] Vitamin E (Dl,Tocopheryl Acet) 400 units PO DAILY 09/14/17 [Vitamin E] meclizine 25 mg tablet 25 mg PO PRN PRN 11/04/17 ocrelizumab 30 mg/mL intravenous 600 mg IV .COMPLEX 11/04/17 solution tizanidine 4 mg capsule 4 mg PO Q8H PRN 11/04/17 Apixaban [Eliquis] 5 mg PO BID 05/28/18 Cholecalciferol (VIT D3) [Vitamin 5,000 unit PO DAILY 05/28/18 D3] Duloxetine Hcl [Cymbalta] 60 mg PO QHS 05/28/18 Multivitamins,Therapeutic 1 tab PO DAILY 05/28/18 [Multivitamin] lisinopril 40 mg tablet 40 mg PO QDAY 06/29/18 hydrochlorothiazide 25 mg tablet 12.5 mg PO DAILY 01/08/19 simvastatin 20 mg tablet 20 mg PO QHS #90 tab 04/09/19 albuterol sulfate 2.5 mg INHALATION Q4H PRN #180 vial 08/12/19 Pantoprazole Sodium [Protonix] 40 mg PO DAILY 12/01/19 carvedilol 12.5 mg tablet 12.5 mg PO BID #180 tab 12/10/19 Amlodipine [Norvasc] 5 mg PO DAILY 01/16/20 Surgical History: Surgical History (Last Reviewed 12/10/19 @ 17:28 by GARY Rayo) History of vasectomy Z98.52 ureteroscopy Surgical History: - - colonoscopy, vasectomy, ureteroscopy Psychiatric History: No pertinent psych hx Lives: With Family Smoking Status: Never smoker Tobacco Use: Non-smoker Alcohol: None Drugs: None - *Family History Paternal Family History: Family History (Last Reviewed 01/16/20 @ 16:46 by GARY Guidry) Father CAD (coronary artery disease) Hypertension Myocardial infarction Mother Hypertension Sister Multiple sclerosis History Items: Hypertension Sibling Family History: Family History (Last Reviewed 01/16/20 @ 16:46 by GARY Guidry) Father CAD (coronary artery disease) Hypertension Myocardial infarction Mother Hypertension Sister Multiple sclerosis History Items: - - Sister with history of MS and due to a pulmonary embolism Maternal Family History: Family History (Last Reviewed 01/16/20 @ 16:46 by GARY Guidry) Father CAD (coronary artery disease) Hypertension Myocardial infarction Mother Hypertension Sister Multiple sclerosis History Items: No pertinent history Review of Systems Constitutional: Reports: Chills, Fever. Denies: Weight Change HEENT: Denies: Head Aches, Sinus Congestion, Sinus Drainage Cardiovascular: Reports: Light Headedness. Denies: Chest Pain, Palpitations Respiratory: Denies: Cough, Shortness of breath at rest, Sputum production Gastrointestinal: Denies: Abdominal Pain, Nausea, Vomiting Genitourinary: Denies: Dysuria Musculoskeletal: Denies: Joint Pain, Joint Tenderness Skin: Denies: Rash, Wounds Neurological: Denies: Numbness, Tingling, Focal weakness Psychiatric: Denies: Anxiety, Depression, Homicidal Ideations, Suicidal Ideations Hematologic/ Lymphatic: Denies: Easy Bruising, Easy Bleeding VTE Information - Inpt Only VTE Present on Admission: No VTE Mechan Device Prophylaxis: None VTE Pharm Prophylaxis ordered?: Yes Patient Problems: Active and Suspected Problems (Last Reviewed 12/10/19 @ 17:28 by GARY Rayo) Severe sepsis (Acute) - Physical Exam Vitals/I&O's: Vital Signs Temp Pulse Resp BP Pulse Ox 102.1 F H 116 H 19 H 112/71 92 01/16/20 16:00 01/16/20 16:00 01/16/20 16:00 01/16/20 16:00 01/16/20 16:00 Oxygen Flow Rate (L/min) 3 Oxygen Delivery Method Nasal Cannula Weight: 269 lb 2.951 oz Body Mass Index (BMI) 31.1 Intake and Output for Last 24 Hours 01/14/20 01/15/20 01/16/20 23:59 23:59 23:59 Intake Total 1000 / 1000 Balance 1000 / 1000 General: Alert, Oriented x3, Cooperative HEENT: Atraumatic, PERRLA, EOMI, Normocephalic Neck: Supple, No JVD, Negative Carotid Bruits Lungs: Clear to auscultation, Normal air movement Cardiovascular: Regular rate, No murmurs Abdomen: Bowel Sounds Present, Soft, Non Tender, Obese Extremities: No edema, Capillary Refill Less than 3 Seconds Skin: No rashes, No breakdown Musculoskeletal: No Tenderness to Palpation of Joints or Extremities Neurological: Cranial nerves II-XII grossly intact Psych/Mental Status: Normal Affect, Appropriate, Alert and oriented to time, place, person, mood and affect Laboratory Results 01/16/20 14:24: WBC 12.9 H, RBC 5.60, Hgb 15.9, Hct 49.5, MCV 88.4, MCH 28.4, MCHC 32.1, RDW Std Deviation 41.7, RDW Coeff of Bravo 12.9, Plt Count 349, MPV 9.0, Immature Gran % (Auto) 0.400, Neut % (Auto) 94.8 H, Lymph % (Auto) 2.8 L, Gilchrist % (Auto) 1.1, Eos % (Auto) 0.5, Baso % (Auto) 0.4, Absolute Neuts (auto) 12.2 H, Absolute Lymphs (auto) 0.36 L, Nucleated RBC % 0, Differential Comment SCANNED 01/16/20 14:24: PT 15.7 H, INR 1.3, APTT 29.4 01/16/20 14:24: Sodium 144, Potassium 3.3 L, Chloride 106, Carbon Dioxide 31.0, Anion Gap 7, BUN 18, Creatinine 1.20, Estim Creat Clear Calc 82.51, Est GFR (MDRD) Af Amer 79, Est GFR (MDRD) Non-Af 65, BUN/Creatinine Ratio 15.0, Glucose 67 L, Calcium 9.6, Total Bilirubin 0.60, AST 25, ALT 25, Alkaline Phosphatase 150 H, Total Protein 8.0, Albumin 3.1 L, Globulin 4.9 H, Albumin/Globulin Ratio 0.6 L 01/16/20 14:24: Lactic Acid 3.1 H* 01/16/20 15:00: Urine Color Yellow, Urine Clarity Cloudy, Urine pH 6.0, Ur Specific [place] 1.010, Urine Protein 30 H, Urine Glucose (UA) Normal, Urine Ketones Negative, Urine Occult Blood 250 H, Urine Nitrite Negative, Urine Bilirubin Negative, Urine Urobilinogen 1 H, Ur Leukocyte Esterase 500 H, Urine RBC 10-25 SEEN, Urine WBC 25-50 SEEN, Ur Squamous Epith Cells 0-5 SEEN, Urine Bacteria 4+, Urine Mucus 0 SEEN Current Medications Sodium Chloride () 1,000 mls @ 999 mls/hr IV .Q1H1M ONE Stop: 01/16/20 17:01 Last Admin: 01/16/20 16:08 Dose: 999 mls/hr Documented by: Assessment/Plan All Active Problems (Last Reviewed 12/10/19 @ 17:28 by GARY Rayo) Urinary tract infection (Acute) Hypokalemia (Acute) Generalized weakness (Acute) Transient hypotension (Acute) Severe sepsis (Acute) Syncope due to orthostatic hypotension (Resolved) Bladder cancer (Resolved) Recurrent UTI (Acute) Syncope (Acute) Cystitis (Acute) Hypotension (Acute) 1. Acute severe sepsis secondary to urinary tract infection-recurrent UTIs. In the past had staph simulans and E. coli both susceptible to Rocephin. We will continue Rocephin. Await urine culture. Await blood cultures. Chest x-ray shows atelectasis or infiltrate however he has no respiratory symptoms at this time. CT of the abdomen and pelvis shows nonobstructing renal stones, urinary bladder wall thickening, retained stool, sepsis criteria met with fever, tachycardia, tachypnea, leukocytosis, lactic acidosis, positive UA. 2. History of bladder cancer in remission-was treated with chemotherapy, no surgery. Pt of Dr. Bernardo. 3. History of PE - eliquis 4. Paroxysmal atrial fibrillation-EKG with sinus tachycardia, sinus tachycardia on monitor with PVCs. Continue eliquis, carvedilol 5. Obstructive sleep apnea-continue CPAP at night 6. Severe MS-PT OT, chronic debility-uses her ocrelizumab 7. GERD-Protonix 8. Hyperlipidemia-continue statin 9. Hypertension-BP mildly elevated at presentation, now normal. DVT prophylaxis: Eliquis DC planning: PT OT, has severe debility however lives with family. This patient was seen by Juvenal Feliciano PA-C under the supervision of Dr. Sy <Koby Sy - Last Filed: 01/16/20 17:16> History of Present Illness The patient is a 64 year old M [] Past Medical History Medical History: Medical History (Last Reviewed 12/10/19 @ 17:28 by GARY Rayo) Syncope due to orthostatic hypotension (Resolved) I95.1 Paroxysmal atrial fibrillation (Chronic) I48.0 Pulmonary embolism (Chronic) I26.99 Atrial septal defect (Chronic) Q21.1 Abnormal EKG (Chronic) R94.31 Multiple sclerosis (Chronic) G35 Hypertension (Chronic) I10 Hyperlipidemia (Chronic) E78.5 Obstructive sleep apnea (Chronic) G47.33 Bladder cancer (Resolved) After 1 round of chemotherapy 2014 Recurrent UTI (Chronic) N39.0 Kidney stones N20.0 Allergies No Known Allergies Allergy (Verified 01/16/20 14:04) Surgical History: Surgical History (Last Reviewed 12/10/19 @ 17:28 by GARY Rayo) History of vasectomy Z98.52 ureteroscopy - *Family History Paternal Family History: Family History (Last Reviewed 01/16/20 @ 16:46 by GARY Guidry) Father CAD (coronary artery disease) Hypertension Myocardial infarction Mother Hypertension Sister Multiple sclerosis Sibling Family History: Family History (Last Reviewed 01/16/20 @ 16:46 by GARY Guidry) Father CAD (coronary artery disease) Hypertension Myocardial infarction Mother Hypertension Sister Multiple sclerosis Maternal Family History: Family History (Last Reviewed 01/16/20 @ 16:46 by GARY Guidry) Father CAD (coronary artery disease) Hypertension Myocardial infarction Mother Hypertension Sister Multiple sclerosis - Physical Exam Vitals/I&O's: Vital Signs Temp Pulse Resp BP Pulse Ox 101.6 F H 104 H 19 H 99/65 92 01/16/20 17:12 01/16/20 17:12 01/16/20 17:12 01/16/20 17:12 01/16/20 17:12 Oxygen Flow Rate (L/min) 3 Oxygen Delivery Method Nasal Cannula Weight: 269 lb 2.951 oz Body Mass Index (BMI) 31.1 Intake and Output for Last 24 Hours 01/14/20 01/15/20 01/16/20 23:59 23:59 23:59 Intake Total 1050 / 1050 Balance 1050 / 1050 Laboratory Results 01/16/20 14:24: WBC 12.9 H, RBC 5.60, Hgb 15.9, Hct 49.5, MCV 88.4, MCH 28.4, MCHC 32.1, RDW Std Deviation 41.7, RDW Coeff of Bravo 12.9, Plt Count 349, MPV 9.0, Immature Gran % (Auto) 0.400, Neut % (Auto) 94.8 H, Lymph % (Auto) 2.8 L, Gilchrist % (Auto) 1.1, Eos % (Auto) 0.5, Baso % (Auto) 0.4, Absolute Neuts (auto) 12.2 H, Absolute Lymphs (auto) 0.36 L, Nucleated RBC % 0, Differential Comment SCANNED 01/16/20 14:24: PT 15.7 H, INR 1.3, APTT 29.4 01/16/20 14:24: Sodium 144, Potassium 3.3 L, Chloride 106, Carbon Dioxide 31.0, Anion Gap 7, BUN 18, Creatinine 1.20, Estim Creat Clear Calc 82.51, Est GFR (MDRD) Af Amer 79, Est GFR (MDRD) Non-Af 65, BUN/Creatinine Ratio 15.0, Glucose 67 L, Calcium 9.6, Total Bilirubin 0.60, AST 25, ALT 25, Alkaline Phosphatase 150 H, Total Protein 8.0, Albumin 3.1 L, Globulin 4.9 H, Albumin/Globulin Ratio 0.6 L 01/16/20 14:24: Lactic Acid 3.1 H* 01/16/20 15:00: Urine Color Yellow, Urine Clarity Cloudy, Urine pH 6.0, Ur Specific [place] 1.010, Urine Protein 30 H, Urine Glucose (UA) Normal, Urine Ketones Negative, Urine Occult Blood 250 H, Urine Nitrite Negative, Urine Bilirubin Negative, Urine Urobilinogen 1 H, Ur Leukocyte Esterase 500 H, Urine RBC 10-25 SEEN, Urine WBC 25-50 SEEN, Ur Squamous Epith Cells 0-5 SEEN, Urine Bacteria 4+, Urine Mucus 0 SEEN Code Visit Addendum: Dr. Sy I personally examined the patient and reviewed the chart. I agree with the above. 64-year-old male with a history of MS who presents to the hospital with recurrent UTIs. He also had a cough about 3 weeks ago but that has resolved and there was something that his had brought home from work. Over the last couple days he has been getting little bit weaker and today he developed chills so they brought him into the ER he was found to have an elevated lactic acid as well as meeting Sirs criteria with source being his urine. He was started on Rocephin and admitted to the ICU because of his severe sepsis. We will continue with IV fluids and monitor his progress. Inpatient E&M: 29940 Init Hosp L3
--- NOTE | 2020-01-16 16:50 | NURSING ---
[facility] 204
[2020-01-16] MEDS: 0.9% Normal Saline 1,000 ML 100 ML IV (18:16)
[2020-01-16 18:39] LABS: Reflex Lactate? Y
[2020-01-16] MEDS: 0.9% Saline Lock 10 ML Syringe IV (20:46)
[2020-01-16 21:02] LABS: Lactic Acid 1.7 mmol/L (0.4-1.9)
[2020-01-16] MEDS: APIXABAN 5 MG TABLET PO (22:07)
[2020-01-16] MEDS: Atorvastatin Calcium 10 MG Tablet PO (22:07)
[2020-01-16] MEDS: DULoxetine Hcl 30 MG Capsule 60 MG PO (22:07)
[2020-01-17] VITALS (39 sets, daily range): BP systolic 73–136; BP diastolic 35–88; PULSE 67–100; RESP 13–20; TEMP 37.2–38.2; O2SAT 92–100
[2020-01-17] MEDS: 0.9% Normal Saline 1,000 ML 150 ML IV (01:52)
[2020-01-17] MEDS: Acetaminophen 325 MG Tablet 650 MG PO (02:31)
[2020-01-17] MEDS: 0.9% Normal Saline 1,000 ML 999 ML IV (03:50)
[2020-01-17] MEDS: 0.9% Saline Lock 10 ML Syringe IV (05:51)
[2020-01-17 05:55] LABS: Absolute Lymphocyte Count 1.12 X10^3/uL (0.83-4.51); Absolute Neutrophil Count 8.9 X10^3/uL (2.0-7.7); Basophil# 0.03 X10^3/uL; Basophil% 0.3 % (0-1); Eosinophil# 0.12 X10^3/uL; Eosinophils% 1.1 % (0-5); Hematocrit 34.9 % (40-54); Hemoglobin 11.2 g/dL (13.0-16.5); Lymphocyte # 1.12 X10^3/ul (4.0); Lymphocyte % 9.8 % (19-41); Mean Corp Hgb Conc 32.1 g/dL (32-36); Mean Corpuscular Hgb 28.4 pg (27.0-32.0); Mean Corpuscular Volume 88.4 fL (80-94); Mean Platelet Vol. 9.5 fl (6.2-12.0); Monocyte# 1.17 X10^3/uL; Monocyte% 10.3 % (0-10); NRBC Flagged by Analyzer 0 % (0-5); Neutrophil # 8.93 X10^3/uL (2.7-7.7); Neutrophil % 78.1 % (47-70); Platelet Count 231 K/mm3 (150-450); RBC Distribution Width CV 13.5 % (11.6-14.6); RBC Distribution Width SD 43.7 fl (35.1-43.9); Red Blood Count 3.95 M/mm3 (4.6-6.2); White Blood Count 11.4 K/mm3 (4.4-11.0)
[2020-01-17 06:19] LABS: Anion Gap 5 (5-15); BUN 15 mg/dL (7-18); BUN/Creat Ratio 14.3 RATIO (10-20); Calcium,Total 7.6 mg/dL (8.5-10.1); Chloride 111 mmol/L (98-107); Creatinine, Serum 1.05 mg/dL (0.70-1.30); EST Glomerular Filtration Rate 76 mL/min (>60); Est Glom Filt Rate - Afr Amer 92 mL/min (>60); Glucose 92 mg/dL (74-106); Potassium 2.9 mmol/L (3.5-5.1); Sodium Level 146 mmol/L (136-145)
--- NOTE | 2020-01-17 06:36 | PCM.CON.CC ---
Reason for Consult Date of Consultation: 01/17/20 Reason for Consultation: Septic shock History of Present Illness: The patient is a 64-year-old male, with a history as outlined below, who presented to the emergency department on January 16 with complaints of fever, malaise and generalized weakness of approximately 24 hours duration. The patient does have a history of recurrent hospital admissions for urinary tract infections, having last been admitted to the hospital for 2 days at the beginning of November 2019. The patient does have a history of MS along with obstructive sleep apnea, for which she is currently followed by Dr. Otoniel Ni in the pulmonary medicine clinic. The patient is currently prescribed nocturnal BiPAP with a pressure support of . The patient has grown a number of different pathogens from his urine cultures in the past including E. coli, enterococcus, Pseudomonas and Proteus. On presentation to the emergency department, the patient was noted to be febrile with a temperature of 102.5 ?F. The patient was tachycardic and tachypneic as well. He was, nevertheless, maintaining appropriate oxygen saturations on room air. Initial laboratory evaluation revealed an elevated white blood cell count to 13,000. INR was noted to be 1.3. Chemistry profile revealed a potassium of 3.3. Initial lactate was elevated to 3.1. Alkaline phosphatase was increased to 150. Urine analysis was positive for leukocyte esterase and 4+ urine bacteria. The patient was provided with supplemental IV fluid hydration and was started on broad-spectrum antimicrobials. He was subsequently admitted to the medical intensive care unit for further management. Overnight, despite adequate volume resuscitation, the patient remained hypotensive requiring the initiation of vasopressor support. He is currently on Levophed at 5 mcg/min to maintain hemodynamic stability. Past Medical History Past Medical History (Chronic Problems): Chronic Problems (Last Reviewed 12/10/19 @ 17:28 by GARY Rayo) Paroxysmal atrial fibrillation (Chronic) Pulmonary embolism (Chronic) Atrial septal defect (Chronic) Abnormal EKG (Chronic) Multiple sclerosis (Chronic) Hypertension (Chronic) Hyperlipidemia (Chronic) Obstructive sleep apnea (Chronic) Medical History: Medical History (Last Reviewed 12/10/19 @ 17:28 by GARY Rayo) Syncope due to orthostatic hypotension (Resolved) I95.1 Paroxysmal atrial fibrillation (Chronic) I48.0 Pulmonary embolism (Chronic) I26.99 Atrial septal defect (Chronic) Q21.1 Abnormal EKG (Chronic) R94.31 Multiple sclerosis (Chronic) G35 Hypertension (Chronic) I10 Hyperlipidemia (Chronic) E78.5 Obstructive sleep apnea (Chronic) G47.33 Bladder cancer (Resolved) After 1 round of chemotherapy 2014 Recurrent UTI (Acute) N39.0 Kidney stones N20.0 Allergies No Known Allergies Allergy (Verified 01/16/20 14:04) Home Medications: Ambulatory Orders Medication Instructions Recorded Vitamin E (Dl,Tocopheryl Acet) 400 units PO DAILY 09/14/17 [Vitamin E] meclizine 25 mg tablet 25 mg PO PRN PRN 11/04/17 ocrelizumab 30 mg/mL intravenous 600 mg IV .COMPLEX 11/04/17 solution tizanidine 4 mg capsule 4 mg PO Q8H PRN 11/04/17 Apixaban [Eliquis] 5 mg PO BID 05/28/18 Cholecalciferol (VIT D3) [Vitamin 5,000 unit PO DAILY 05/28/18 D3] Duloxetine Hcl [Cymbalta] 60 mg PO QHS 05/28/18 Multivitamins,Therapeutic 1 tab PO DAILY 05/28/18 [Multivitamin] lisinopril 40 mg tablet 40 mg PO QDAY 06/29/18 hydrochlorothiazide 25 mg tablet 12.5 mg PO PRN PRN 01/08/19 simvastatin 20 mg tablet 20 mg PO QHS #90 tab 04/09/19 albuterol sulfate 2.5 mg INHALATION Q4H PRN #180 vial 08/12/19 Pantoprazole Sodium [Protonix] 40 mg PO DAILY 12/01/19 carvedilol 12.5 mg tablet 12.5 mg PO BID #180 tab 12/10/19 Amlodipine [Norvasc] 5 mg PO DAILY 01/16/20 Lisdexamfetamine Dimesylate 50 mg PO DAILY 01/16/20 [Vyvanse] Surgical History: Surgical History (Last Reviewed 12/10/19 @ 17:28 by GARY Rayo) History of vasectomy Z98.52 ureteroscopy Surgical History: - - colonoscopy, vasectomy, ureteroscopy Psychiatric History: No pertinent psych hx Lives: With Family Smoking Status: Never smoker Tobacco Use: Non-smoker Alcohol: None Drugs: None - *Family History Paternal Family History: Family History (Last Reviewed 01/16/20 @ 16:46 by GARY Guidry) Father CAD (coronary artery disease) Hypertension Myocardial infarction Mother Hypertension Sister Multiple sclerosis History Items: Hypertension Sibling Family History: Family History (Last Reviewed 01/16/20 @ 16:46 by GARY Guidry) Father CAD (coronary artery disease) Hypertension Myocardial infarction Mother Hypertension Sister Multiple sclerosis History Items: - - Sister with history of MS and due to a pulmonary embolism Maternal Family History: Family History (Last Reviewed 01/16/20 @ 16:46 by GARY Guidry) Father CAD (coronary artery disease) Hypertension Myocardial infarction Mother Hypertension Sister Multiple sclerosis History Items: No pertinent history Review of Systems Constitutional: Reports: Chills, Fever, Weakness, Fatigue Eyes: Denies: Blurred vision, Double vision HEENT: Denies: Head Aches, Sinus Congestion, Sinus Drainage Cardiovascular: Denies: Chest Pain, Palpitations Respiratory: Denies: Cough, Shortness of breath at rest, Sputum production Gastrointestinal: Denies: Abdominal Pain, Nausea, Vomiting Genitourinary: Reports: Incontinence. Denies: Dysuria, Frequency Musculoskeletal: Denies: Joint Pain, Joint Tenderness Skin: Denies: Rash, Wounds Neurological: Denies: Numbness, Tingling, Focal weakness Psychiatric: Denies: Anxiety, Depression, Homicidal Ideations, Suicidal Ideations Hematologic/ Lymphatic: Reports: Hx of blood clot. Denies: Easy Bruising, Easy Bleeding Patient Problems: Active and Suspected Problems (Last Reviewed 12/10/19 @ 17:28 by GARY Rayo) Severe sepsis (Acute) Objective: The patient's most recent lab work, culture data and imaging studies have all been personally reviewed. Blood and urine cultures are pending. - Physical Exam Vitals/I&O's: Vital Signs Temp Pulse Resp BP Pulse Ox 99.5 F H 70 17 119/66 95 01/17/20 04:49 01/17/20 06:30 01/17/20 06:30 01/17/20 06:30 01/17/20 06:30 Oxygen Flow Rate (L/min) 3 Oxygen Delivery Method Nasal Cannula Weight: 264 lb 15.93 oz Body Mass Index (BMI) 30.3 Intake and Output for Last 24 Hours 01/15/20 01/16/20 01/17/20 23:59 23:59 23:59 Intake Total 4493.33 / 4493.33 1769.55 / 1769.55 Output Total 250 / 250 600 / 600 Balance 4243.33 / 4243.33 1169.55 / 1169.55 General: Alert, Oriented x3, Cooperative, No apparent distress HEENT: Atraumatic, PERRLA, Normocephalic Oral: No Gingival or Mucosal Lesions/ Ulcerations Neck: Supple, No Nodes, Trachea Midline Lungs: Normal air movement, No rhonchi, No wheeze, No rales Cardiovascular: Regular rate, Regular Rhythm, Normal S1, Normal S2 Abdomen: Bowel Sounds Present, Soft, Non Tender, Obese Extremities: No clubbing, No cyanosis, No edema Skin: No breakdown Musculoskeletal: No Tenderness to Palpation of Joints or Extremities Lymphatic: No Cervical, Supraclavicular, or Inguinal Adenopathy Neurological: Neuro grossly intact Psych/Mental Status: Normal Affect, Appropriate Labs (Last 48 Hours) 01/16/20 01/16/20 01/16/20 14:24 14:24 14:24 WBC 12.9 H RBC 5.60 Hgb 15.9 Hct 49.5 MCV 88.4 MCH 28.4 MCHC 32.1 RDW Std Deviation 41.7 RDW Coeff of Bravo 12.9 Plt Count 349 MPV 9.0 Immature Gran % (Auto) 0.400 Neut % (Auto) 94.8 H Lymph % (Auto) 2.8 L [place] % (Auto) 1.1 Eos % (Auto) 0.5 Baso % (Auto) 0.4 Absolute Neuts (auto) 12.2 H Absolute Lymphs (auto) 0.36 L Nucleated RBC % 0 Differential Comment SCANNED PT 15.7 H INR 1.3 APTT 29.4 Sodium 144 Potassium 3.3 L Chloride 106 Carbon Dioxide 31.0 Anion Gap 7 BUN 18 Creatinine 1.20 Estim Creat Clear Calc 82.51 Est GFR (MDRD) Af Amer 79 Est GFR (MDRD) Non-Af 65 BUN/Creatinine Ratio 15.0 Glucose 67 L Lactic Acid Calcium 9.6 Total Bilirubin 0.60 AST 25 ALT 25 Alkaline Phosphatase 150 H Total Protein 8.0 Albumin 3.1 L Globulin 4.9 H Albumin/Globulin Ratio 0.6 L Urine Color Urine Clarity Urine pH Ur Specific [place] Urine Protein Urine Glucose (UA) Urine Ketones Urine Occult Blood Urine Nitrite Urine Bilirubin Urine Urobilinogen Ur Leukocyte Esterase Urine RBC Urine WBC Ur Squamous Epith Cells Urine Bacteria Urine Mucus 01/16/20 01/16/20 01/16/20 14:24 15:00 20:25 WBC RBC Hgb Hct MCV MCH MCHC RDW Std Deviation RDW Coeff of Bravo Plt Count MPV Immature Gran % (Auto) Neut % (Auto) Lymph % (Auto) [place] % (Auto) Eos % (Auto) Baso % (Auto) Absolute Neuts (auto) Absolute Lymphs (auto) Nucleated RBC % Differential Comment PT INR APTT Sodium Potassium Chloride Carbon Dioxide Anion Gap BUN Creatinine Estim Creat Clear Calc Est GFR (MDRD) Af Amer Est GFR (MDRD) Non-Af BUN/Creatinine Ratio Glucose Lactic Acid 3.1 H* 1.7 Calcium Total Bilirubin AST ALT Alkaline Phosphatase Total Protein Albumin Globulin Albumin/Globulin Ratio Urine Color Yellow Urine Clarity Cloudy Urine pH 6.0 Ur Specific [place] 1.010 Urine Protein 30 H Urine Glucose (UA) Normal Urine Ketones Negative Urine Occult Blood 250 H Urine Nitrite Negative Urine Bilirubin Negative Urine Urobilinogen 1 H Ur Leukocyte Esterase 500 H Urine RBC 10-25 SEEN Urine WBC 25-50 SEEN Ur Squamous Epith Cells 0-5 SEEN Urine Bacteria 4+ Urine Mucus 0 SEEN 01/17/20 01/17/20 05:20 05:20 WBC 11.4 H RBC 3.95 L Hgb 11.2 L Hct 34.9 L MCV 88.4 MCH 28.4 MCHC 32.1 RDW Std Deviation 43.7 RDW Coeff of Bravo 13.5 Plt Count 231 MPV 9.5 Immature Gran % (Auto) 0.400 Neut % (Auto) 78.1 H Lymph % (Auto) 9.8 L [place] % (Auto) 10.3 H Eos % (Auto) 1.1 Baso % (Auto) 0.3 Absolute Neuts (auto) 8.9 H Absolute Lymphs (auto) 1.12 Nucleated RBC % 0 Differential Comment PT INR APTT Sodium 146 H Potassium 2.9 L Chloride 111 H Carbon Dioxide 30.0 Anion Gap 5 BUN 15 Creatinine 1.05 Estim Creat Clear Calc 94.30 Est GFR (MDRD) Af Amer 92 Est GFR (MDRD) Non-Af 76 BUN/Creatinine Ratio 14.3 Glucose 92 Lactic Acid Calcium 7.6 L Total Bilirubin AST ALT Alkaline Phosphatase Total Protein Albumin Globulin Albumin/Globulin Ratio Urine Color Urine Clarity Urine pH Ur Specific [place] Urine Protein Urine Glucose (UA) Urine Ketones Urine Occult Blood Urine Nitrite Urine Bilirubin Urine Urobilinogen Ur Leukocyte Esterase Urine RBC Urine WBC Ur Squamous Epith Cells Urine Bacteria Urine Mucus Clinical Impression(s) from Imaging Studies Abdomen/Pelvis CT 01/16/20 14:32 IMPRESSION: Partially visualized left lung base consolidation. Punctate nonobstructing right renal stones. Left extrarenal pelvis. Prominent stool within the rectum and distal sigmoid colon. Query stool impaction. Mild urinary bladder wall thickening. Consider cystitis. Electronically Signed: Aubreyadrian Thomas, at 16:10 EST Tel , Service support , Chest X-Ray 01/16/20 15:00 IMPRESSION: Left lung base atelectasis/infiltrate. Electronically Signed: Aubrey Thomas, at 15:28 EST Tel , Service support , Current Medications Acetaminophen (Tylenol) 650 mg PO Q6H PRN PRN PRN Reason: Pain Score 1-10/Temp > 100.7 F Last Admin: 01/17/20 02:31 Dose: 650 mg Documented by: Apixaban (Eliquis) 5 mg PO BID [facility] Last Admin: 01/16/20 22:07 Dose: 5 mg Documented by: Atorvastatin Calcium (Lipitor) 10 mg PO QHS [facility] Last Admin: 01/16/20 22:07 Dose: 10 mg Documented by: Dextrose (D50w Syringe) 0 gm IV X1 PRN; Protocol PRN Reason: Hypoglycemia Duloxetine HCl (Cymbalta) 60 mg PO QHS [facility] Last Admin: 01/16/20 22:07 Dose: 60 mg Documented by: Glucagon () 1 mg IM .X1 PRN PRN Reason: Hypoglycemia Sodium Chloride () 1,000 mls @ 150 mls/hr IV .Q6H40M [facility] Last Admin: 01/17/20 01:52 Dose: 150 mls/hr Documented by: Ceftriaxone Sodium 2 gm/ (Sodium Chloride) 50 mls @ 100 mls/hr IV Q24 [facility] Norepinephrine Bitartrate 8 mg (/ Sodium Chloride) 250 mls @ 9.375 mls/hr CONT INF .[id number] [facility]; Protocol Last Titration: 01/17/20 06:30 Dose: 5 mcg/min, 9.4 mls/hr Documented by: Nutritional Formula (Lactose Free) (Ensure Enlive) 120 ml PO 4X/DAY [facility] Last Admin: 01/16/20 22:27 Dose: 120 ml Documented by: Ondansetron HCl (Zofran) 4 mg IV Q8H PRN PRN PRN Reason: NAUSEA/VOMITING Sodium Chloride () 10 - 40 ml IV UD PRN PRN Reason: SALINE FLUSH Last Admin: 01/17/20 05:51 Dose: 10 ml Documented by: Tizanidine HCl (Zanaflex) 4 mg PO Q8H PRN PRN PRN Reason: Muscle Spasm Assessment/Plan Active and Suspected Problems (Last Reviewed 12/10/19 @ 17:28 by GARY Rayo) Severe sepsis (Acute) RECOMMENDATIONS: 1. Wean Levophed to maintain a mean arterial pressure at or above 65 mmHg. 2. Continue broad antimicrobial coverage, pending finalized infectious work-up. 3. Discontinue continuous supplemental IV fluids. 4. Hold home antihypertensive regimen, pending stabilization and hemodynamics. 5. Start home BiPAP regimen with naps and nightly. 6. Encourage incentive spirometer use while in bed. IMPRESSIONS: 1. Septic shock with concern for urinary tract source of infection The patient does have a history of recurrent urinary tract infections and is incontinent in his home environment. The patient was adequately volume resuscitated, but remained hemodynamically unstable, requiring the initiation of Levophed therapy. The patient has stabilized from a hemodynamic perspective. Recommend weaning Levophed to maintain a mean arterial pressure at or above 65 mmHg. Continuous supplemental IV fluids can be discontinued at this time. We will continue on broad-spectrum antimicrobials, pending finalized infectious work-up. 2. Hypokalemia/hypophosphatemia Aggressive electrolyte repletion as ordered. 3. Obstructive sleep apnea Continue nocturnal BiPAP therapy per home regimen 4. History of bladder CA in remission/history of venous thromboembolic disease/Baseline MS/GERD/hypertension Complicates care, management, recovery and prognosis. Continue home Eliquis therapy but hold antihypertensives, pending improvement in hemodynamic status. TIME: 38 minutes of critical care time, independent of procedures, was spent addressing the patient's septic shock with concern for recurrent UTI, hypokalemia, hypophosphatemia, obstructive sleep apnea, review of all data and collaboration with the care team. ([id number]) Code Visit 9xxxx: [id number] Critical care first hour
[2020-01-17] MEDS: APIXABAN 5 MG TABLET PO ×2 (09:34→21:57)
[2020-01-17 09:37] LABS: Magnesium 1.6 mg/dL (1.6-2.6); Phosphorus 2.1 mg/dL (2.5-4.9)
--- NOTE | 2020-01-17 11:04 | CASEMGMT ---
RN CM Assessment Presentation: Severe Sepsis, UTI. History of MS, disabled. Intro role of CM and purpose of RN CM assessment to patient in room. and daughter were present for ICU interdisciplinary rounds. Demographics, PCP and Pharmacy verified. Pt states he lives @ home with his . He has been disabled with MS, but states they have equipment and care needs met at home. No difficulty f/u with physicians or with prescriptions. works @ [employer]. PCP: Dr. Amanuel Duckworth III Specialists: Dr. Bernardo, urology; Dr. Roy, neuro in [place]; Dr. Monteiro, Cardiology Preferred Pharmacy: [facility] Insurance: [place] Prescription Benefit: yes LNOK: , Mirella Barney Living Arrangements: Lives in one story home with . Ramp to entryway. Pt is disabled, has equipment at home. is able to assist pt with care needs and per pt, no new care needs at this time. Transportation: Family drives. Pt has van DME: walker, powerwheel chair, handicap accessible van, Cpap (denies home oxygen use) HHC: Current with [facility] for Physical Therapy. Discussed HHC RN on dc. Pt declined, stating he is able to f/u with physician office. Patient DC goals: Home DC PLAN: Anticipate Home on discharge with resumption of [facility] PT. RN CM let pt know cm is available if dc needs or concerns arise.
--- NOTE | 2020-01-17 12:34 | CHAPLAIN ---
Type of Pastoral Visit _x__ Initial Visit ___ Follow-up Visit ___ On-call Visit ___ General Patient Visit ___ Spiritual Assessment ___ Family Conference ___ Bereavement ___ Rapid Response ___ Code Blue ___ Other (describe below) Pastoral Care Referral From _x__ Patient ___ Family ___ Nurse ___ Physician ___ Wildlife Refuge Specialist ___ Private Client Advisor ___ Other (describe below) Sacrament/Intervention _x__ Active listening ___ Anointing ___ Sabianism ___ Bereavement ___ Communion ___ Terri exploration ___ ___ Life review _x__ Prayer ___ Reconciliation ___ Sacrament of Sick _x__ Supportive presence ___ Wedding ___ Other (describe below) Pastoral Comments
--- NOTE | 2020-01-17 13:43 | PCM.PN.HOSP ---
Patient Problems: Active and Suspected Problems (Last Reviewed 12/10/19 @ 17:28 by GARY Rayo) Severe sepsis (Acute) Reason for Visit: Recurrent UTI Subjective: Pt feels markedly better this AM. No further chills or dizziness which were his primary symptoms. At time of eval, upright in bed NAD with family present. Pt with low BP overnight placed on pressors. Vitals/I&O's: Vital Signs Temp Pulse Resp BP Pulse Ox 99.7 F H 81 20 H 121/70 H 95 01/17/20 07:15 01/17/20 13:41 01/17/20 13:41 01/17/20 13:41 01/17/20 13:41 Oxygen Flow Rate (L/min) 3 Oxygen Delivery Method Room Air Weight: 264 lb 15.93 oz Body Mass Index (BMI) 30.3 Intake and Output for Last 24 Hours 01/15/20 01/16/20 01/17/20 23:59 23:59 23:59 Intake Total 4493.33 / 4493.33 3435.31 / 3435.31 Output Total 250 / 250 1200 / 1200 Balance 4243.33 / 4243.33 2235.31 / 2235.31 General: Alert, Oriented x3, Cooperative HEENT: Atraumatic, PERRLA, EOMI, Normocephalic Neck: Supple, No JVD, Negative Carotid Bruits Lungs: Clear to auscultation, Normal air movement Cardiovascular: Regular rate, No murmurs Abdomen: Bowel Sounds Present, Soft, Non Tender, Obese Extremities: No edema, Capillary Refill Less than 3 Seconds Skin: No rashes, No breakdown Musculoskeletal: No Tenderness to Palpation of Joints or Extremities Neurological: Cranial nerves II-XII grossly intact Psych/Mental Status: Normal Affect, Appropriate, Alert and oriented to time, place, person, mood and affect Microbiology Past 72 Hours 01/16/20 15:00 Urine Catheter - Catheter Urine Culture - Preliminary Presumptive E. coli Laboratory Results 01/16/20 14:24: WBC 12.9 H, RBC 5.60, Hgb 15.9, Hct 49.5, MCV 88.4, MCH 28.4, MCHC 32.1, RDW Std Deviation 41.7, RDW Coeff of Bravo 12.9, Plt Count 349, MPV 9.0, Immature Gran % (Auto) 0.400, Neut % (Auto) 94.8 H, Lymph % (Auto) 2.8 L, [place] % (Auto) 1.1, Eos % (Auto) 0.5, Baso % (Auto) 0.4, Absolute Neuts (auto) 12.2 H, Absolute Lymphs (auto) 0.36 L, Nucleated RBC % 0, Differential Comment SCANNED 01/16/20 14:24: PT 15.7 H, INR 1.3, APTT 29.4 01/16/20 14:24: Sodium 144, Potassium 3.3 L, Chloride 106, Carbon Dioxide 31.0, Anion Gap 7, BUN 18, Creatinine 1.20, Estim Creat Clear Calc 82.51, Est GFR (MDRD) Af Amer 79, Est GFR (MDRD) Non-Af 65, BUN/Creatinine Ratio 15.0, Glucose 67 L, Calcium 9.6, Total Bilirubin 0.60, AST 25, ALT 25, Alkaline Phosphatase 150 H, Total Protein 8.0, Albumin 3.1 L, Globulin 4.9 H, Albumin/Globulin Ratio 0.6 L 01/16/20 14:24: Lactic Acid 3.1 H* 01/16/20 15:00: Urine Color Yellow, Urine Clarity Cloudy, Urine pH 6.0, Ur Specific [place] 1.010, Urine Protein 30 H, Urine Glucose (UA) Normal, Urine Ketones Negative, Urine Occult Blood 250 H, Urine Nitrite Negative, Urine Bilirubin Negative, Urine Urobilinogen 1 H, Ur Leukocyte Esterase 500 H, Urine RBC 10-25 SEEN, Urine WBC 25-50 SEEN, Ur Squamous Epith Cells 0-5 SEEN, Urine Bacteria 4+, Urine Mucus 0 SEEN 01/16/20 20:25: Lactic Acid 1.7 01/17/20 05:20: Sodium 146 H, Potassium 2.9 L, Chloride 111 H, Carbon Dioxide 30.0, Anion Gap 5, BUN 15, Creatinine 1.05, Estim Creat Clear Calc 94.30, Est GFR (MDRD) Af Amer 92, Est GFR (MDRD) Non-Af 76, BUN/Creatinine Ratio 14.3, Glucose 92, Calcium 7.6 L 01/17/20 05:20: WBC 11.4 H, RBC 3.95 L, Hgb 11.2 L, Hct 34.9 L, MCV 88.4, MCH 28.4, MCHC 32.1, RDW Std Deviation 43.7, RDW Coeff of Bravo 13.5, Plt Count 231, MPV 9.5, Immature Gran % (Auto) 0.400, Neut % (Auto) 78.1 H, Lymph % (Auto) 9.8 L, [place] % (Auto) 10.3 H, Eos % (Auto) 1.1, Baso % (Auto) 0.3, Absolute Neuts (auto) 8.9 H, Absolute Lymphs (auto) 1.12, Nucleated RBC % 0 01/17/20 05:20: Phosphorus 2.1 L, Magnesium 1.6 Current Medications Acetaminophen (Tylenol) 650 mg PO Q6H PRN PRN PRN Reason: Pain Score 1-10/Temp > 100.7 F Last Admin: 01/17/20 02:31 Dose: 650 mg Documented by: Apixaban (Eliquis) 5 mg PO BID [facility] Last Admin: 01/17/20 09:34 Dose: 5 mg Documented by: Atorvastatin Calcium (Lipitor) 10 mg PO QHS [facility] Last Admin: 01/16/20 22:07 Dose: 10 mg Documented by: Dextrose (D50w Syringe) 0 gm IV X1 PRN; Protocol PRN Reason: Hypoglycemia Duloxetine HCl (Cymbalta) 60 mg PO QHS [facility] Last Admin: 01/16/20 22:07 Dose: 60 mg Documented by: Glucagon () 1 mg IM .X1 PRN PRN Reason: Hypoglycemia Ceftriaxone Sodium 2 gm/ (Sodium Chloride) 50 mls @ 100 mls/hr IV Q24 [facility] Last Infusion: 01/17/20 10:20 Dose: Infused Documented by: Norepinephrine Bitartrate 8 mg (/ Sodium Chloride) 250 mls @ 9.375 mls/hr CONT INF .[id number] [facility]; Protocol Last Titration: 01/17/20 13:41 Dose: 0 mcg/min, 0 mls/hr Documented by: Potassium Phosphate 30 mm/ (Sodium Chloride) 260 mls @ 42 mls/hr IV X1 ONE Stop: 01/17/20 16:41 Last Admin: 01/17/20 10:43 Dose: 42 mls/hr Documented by: Lisdexamfetamine Dimesylate (Vyvanse) 50 mg PO QAM [facility] Ondansetron HCl (Zofran) 4 mg IV Q8H PRN PRN PRN Reason: NAUSEA/VOMITING Potassium Phos/Sodium Phos (Neutra-Phos Packet) 1 packet PO 4X/DAY [facility] Stop: 01/17/20 22:01 Sodium Chloride () 10 - 40 ml IV UD PRN PRN Reason: SALINE FLUSH Last Admin: 01/17/20 05:51 Dose: 10 ml Documented by: Tizanidine HCl (Zanaflex) 4 mg PO Q8H PRN PRN PRN Reason: Muscle Spasm STROKE Vital Signs/Narrative: Vital Signs Pulse Resp BP Pulse Ox 01/17/20 13:41 81 20 H 121/70 H 95 01/17/20 12:00 84 01/17/20 11:00 76 18 112/67 95 01/17/20 10:32 95 01/17/20 10:00 86 18 99/52 L 94 Medical Necessity - Tobacco Use Smoking Status: Never smoker Tobacco Use: Non-smoker Assessment/Plan All Active Problems (Last Reviewed 12/10/19 @ 17:28 by GARY Rayo) Urinary tract infection (Acute) Hypokalemia (Acute) Generalized weakness (Acute) Transient hypotension (Acute) Severe sepsis (Acute) Syncope due to orthostatic hypotension (Resolved) Bladder cancer (Resolved) Recurrent UTI (Acute) Syncope (Acute) Cystitis (Acute) Hypotension (Acute) 1. Septic shock 2/2 recurrent UTIs. In the past had staph simulans and E. coli both susceptible to Rocephin. We will continue Rocephin. Await urine culture: prelim demonstrates presumptive E coli. Need final C&S. Await blood cultures. Chest x-ray shows atelectasis or infiltrate however he has no respiratory symptoms at this time. CT of the abdomen and pelvis shows nonobstructing renal stones, urinary bladder wall thickening, retained stool, sepsis criteria met with fever, tachycardia, tachypnea, leukocytosis, lactic acidosis, positive UA. -pt still requiring pressors. -chills and dizziness resolved -wbc improved -K+, mag, phos replaced, check in am. -critical care following. 2. History of bladder cancer in remission-was treated with chemotherapy, no surgery. Pt of Dr. Bernardo. 3. History of PE - eliquis 4. Paroxysmal atrial fibrillation-EKG with sinus tachycardia, sinus tachycardia on monitor with PVCs. Continue eliquis 5. Obstructive sleep apnea-continue CPAP nightly/rests 6. Severe MS-PT OT, chronic debility-uses her ocrelizumab 7. GERD-Protonix 8. Hyperlipidemia-statin 9. Hypertension- antihypertensives held. DVT prophylaxis: Eliquis DC planning: PT OT, has severe debility however lives with family. This patient was seen by Juvenal Feliciano PA-C under the supervision of Dr. Downey
[2020-01-17 14:19] LABS: AST(SGOT) 13 U/L (15-37); Alanine Aminotransfer ALT/SGPT 18 U/L (16-61); Alkaline Phosphatase 83 U/L (45-117); Bilirubin, Direct 0.06 mg/dL (0.00-0.30); Globulin 3.2 g/dL (2.2-4.2); Protein, Total 5.2 g/dL (6.4-8.2)
[2020-01-17] MEDS: Na Biphos/Potassium Phosphate PACKET 1 PACKET PO ×3 (15:41→21:57)
[2020-01-17] MEDS: Atorvastatin Calcium 10 MG Tablet PO (21:57)
[2020-01-17] MEDS: DULoxetine Hcl 30 MG Capsule 60 MG PO (21:57)
[2020-01-18] VITALS (9 sets, daily range): BP systolic 116–141; BP diastolic 72–77; PULSE 79–94; RESP 16–19; TEMP 36.9–37.4; O2SAT 93–98
[2020-01-18 04:18] LABS: Absolute Lymphocyte Count 1.47 X10^3/uL (0.83-4.51); Basophil# 0.03 X10^3/uL; Basophil% 0.3 % (0-1); Eosinophil# 0.13 X10^3/uL; Eosinophils% 1.3 % (0-5); Hematocrit 38.1 % (40-54); Hemoglobin 12.3 g/dL (13.0-16.5); Lymphocyte # 1.47 X10^3/ul (4.0); Mean Corp Hgb Conc 32.3 g/dL (32-36); Mean Corpuscular Hgb 28.7 pg (27.0-32.0); Mean Corpuscular Volume 88.8 fL (80-94); Monocyte# 1.08 X10^3/uL; Monocyte% 11.1 % (0-10); NRBC Flagged by Analyzer 0 % (0-5); Neutrophil # 7.02 X10^3/uL (2.7-7.7); Neutrophil % 71.9 % (47-70); Platelet Count 241 K/mm3 (150-450); RBC Distribution Width CV 13.2 % (11.6-14.6); RBC Distribution Width SD 42.9 fl (35.1-43.9); Red Blood Count 4.29 M/mm3 (4.6-6.2); White Blood Count 9.8 K/mm3 (4.4-11.0)
[2020-01-18 04:31] LABS: Anion Gap 4 (5-15); BUN 13 mg/dL (7-18); BUN/Creat Ratio 13.5 RATIO (10-20); Calcium,Total 8.4 mg/dL (8.5-10.1); Chloride 110 mmol/L (98-107); Creatinine, Serum 0.96 mg/dL (0.70-1.30); EST Glomerular Filtration Rate 84 mL/min (>60); Est Glom Filt Rate - Afr Amer 101 mL/min (>60); Estimated Creatinine Clearance 103.14 ml/min; Glucose 124 mg/dL (74-106); Potassium 3.3 mmol/L (3.5-5.1); Sodium Level 142 mmol/L (136-145)
[2020-01-18 04:44] LABS: Phosphorus 2.5 mg/dL (2.5-4.9)
--- NOTE | 2020-01-18 06:45 | PN_ITS ---
Subjective: The patient was seen and examined at the bedside this morning. Events from the last 24 hours have been reviewed. The patient is currently afebrile, hemodynamically stable and maintaining appropriate oxygen saturations on room air. The patient was able to be successfully weaned from vasopressor support yesterday. Leukocytosis has resolved. Creatinine is stable. Potassium is low this morning at 3.3. The patient feels well this morning. He denies any shortness of breath or chest pain. Objective: The patient's most recent lab work, culture data and imaging studies have all been personally reviewed. Preliminary urine culture is positive for E. coli. General: Alert, Oriented x3, Cooperative, No apparent distress HEENT: Atraumatic, PERRLA, Normocephalic Oral: No Gingival or Mucosal Lesions/ Ulcerations Neck: Supple, No Nodes, Trachea Midline Lungs: Normal air movement, No rhonchi, No wheeze, No rales Cardiovascular: Regular rate, Regular Rhythm, Normal S1, Normal S2, No murmurs Abdomen: Bowel Sounds Present, Soft, Non Tender, Obese Extremities: No clubbing, No cyanosis, No edema Skin: No breakdown Musculoskeletal: No Tenderness to Palpation of Joints or Extremities, No Muscle Wasting Lymphatic: No Cervical, Supraclavicular, or Inguinal Adenopathy Neurological: Cranial nerves II-XII grossly intact, Neuro grossly intact Psych/Mental Status: Alert and oriented to time, place, person, mood and affect Vital Signs Temp Pulse Resp BP Pulse Ox 98.4 F 94 18 116/72 94 01/18/20 05:03 01/18/20 05:03 01/18/20 05:03 01/18/20 05:03 01/18/20 05:03 Oxygen Flow Rate (L/min) 3 Oxygen Delivery Method Room Air Weight: 264 lb 15.93 oz Body Mass Index (BMI) 30.3 Intake and Output for Last 24 Hours 01/16/20 01/17/20 01/18/20 23:59 23:59 23:59 Intake Total 4493.33 / 4493.33 3695.31 / 3695.31 Output Total 250 / 250 1200 / 1200 1525 / 1525 Balance 4243.33 / 4243.33 2495.31 / 2495.31 -1525 / -1525 Labs (Last 48 Hours) 01/16/20 01/16/20 01/16/20 14:24 14:24 14:24 WBC 12.9 H RBC 5.60 Hgb 15.9 Hct 49.5 MCV 88.4 MCH 28.4 MCHC 32.1 RDW Std Deviation 41.7 RDW Coeff of Bravo 12.9 Plt Count 349 MPV 9.0 Immature Gran % (Auto) 0.400 Neut % (Auto) 94.8 H Lymph % (Auto) 2.8 L [place] % (Auto) 1.1 Eos % (Auto) 0.5 Baso % (Auto) 0.4 Absolute Neuts (auto) 12.2 H Absolute Lymphs (auto) 0.36 L Nucleated RBC % 0 Differential Comment SCANNED PT 15.7 H INR 1.3 APTT 29.4 Sodium 144 Potassium 3.3 L Chloride 106 Carbon Dioxide 31.0 Anion Gap 7 BUN 18 Creatinine 1.20 Estim Creat Clear Calc 82.51 Est GFR (MDRD) Af Amer 79 Est GFR (MDRD) Non-Af 65 BUN/Creatinine Ratio 15.0 Glucose 67 L Lactic Acid Calcium 9.6 Phosphorus Magnesium Total Bilirubin 0.60 Direct Bilirubin AST 25 ALT 25 Alkaline Phosphatase 150 H Total Protein 8.0 Albumin 3.1 L Globulin 4.9 H Albumin/Globulin Ratio 0.6 L Urine Color Urine Clarity Urine pH Ur Specific [place] Urine Protein Urine Glucose (UA) Urine Ketones Urine Occult Blood Urine Nitrite Urine Bilirubin Urine Urobilinogen Ur Leukocyte Esterase Urine RBC Urine WBC Ur Squamous Epith Cells Urine Bacteria Urine Mucus 01/16/20 01/16/20 01/16/20 14:24 15:00 20:25 WBC RBC Hgb Hct MCV MCH MCHC RDW Std Deviation RDW Coeff of [place] Plt Count MPV Immature Gran % (Auto) Neut % (Auto) Lymph % (Auto) [place] % (Auto) Eos % (Auto) Baso % (Auto) Absolute Neuts (auto) Absolute Lymphs (auto) Nucleated RBC % Differential Comment PT INR APTT Sodium Potassium Chloride Carbon Dioxide Anion Gap BUN Creatinine Estim Creat Clear Calc Est GFR (MDRD) Af Amer Est GFR (MDRD) Non-Af BUN/Creatinine Ratio Glucose Lactic Acid 3.1 H* 1.7 Calcium Phosphorus Magnesium Total Bilirubin Direct Bilirubin AST ALT Alkaline Phosphatase Total Protein Albumin Globulin Albumin/Globulin Ratio Urine Color Yellow Urine Clarity Cloudy Urine pH 6.0 Ur Specific [place] 1.010 Urine Protein 30 H Urine Glucose (UA) Normal Urine Ketones Negative Urine Occult Blood 250 H Urine Nitrite Negative Urine Bilirubin Negative Urine Urobilinogen 1 H Ur Leukocyte Esterase 500 H Urine RBC 10-25 SEEN Urine WBC 25-50 SEEN Ur Squamous Epith Cells 0-5 SEEN Urine Bacteria 4+ Urine Mucus 0 SEEN 01/17/20 01/17/20 01/17/20 05:20 05:20 05:20 WBC 11.4 H RBC 3.95 L Hgb 11.2 L Hct 34.9 L MCV 88.4 MCH 28.4 MCHC 32.1 RDW Std Deviation 43.7 RDW Coeff of [place] 13.5 Plt Count 231 MPV 9.5 Immature Gran % (Auto) 0.400 Neut % (Auto) 78.1 H Lymph % (Auto) 9.8 L [place] % (Auto) 10.3 H Eos % (Auto) 1.1 Baso % (Auto) 0.3 Absolute Neuts (auto) 8.9 H Absolute Lymphs (auto) 1.12 Nucleated RBC % 0 Differential Comment PT INR APTT Sodium 146 H Potassium 2.9 L Chloride 111 H Carbon Dioxide 30.0 Anion Gap 5 BUN 15 Creatinine 1.05 Estim Creat Clear Calc 94.30 Est GFR (MDRD) Af Amer 92 Est GFR (MDRD) Non-Af 76 BUN/Creatinine Ratio 14.3 Glucose 92 Lactic Acid Calcium 7.6 L Phosphorus 2.1 L Magnesium 1.6 Total Bilirubin Direct Bilirubin AST ALT Alkaline Phosphatase Total Protein Albumin Globulin Albumin/Globulin Ratio Urine Color Urine Clarity Urine pH Ur Specific [place] Urine Protein Urine Glucose (UA) Urine Ketones Urine Occult Blood Urine Nitrite Urine Bilirubin Urine Urobilinogen Ur Leukocyte Esterase Urine RBC Urine WBC Ur Squamous Epith Cells Urine Bacteria Urine Mucus 01/17/20 01/18/20 01/18/20 05:20 04:10 04:10 WBC 9.8 RBC 4.29 L Hgb 12.3 L Hct 38.1 L MCV 88.8 MCH 28.7 MCHC 32.3 RDW Std Deviation 42.9 RDW Coeff of [place] 13.2 Plt Count 241 MPV 9.0 Immature Gran % (Auto) 0.400 Neut % (Auto) 71.9 H Lymph % (Auto) 15.0 L [place] % (Auto) 11.1 H Eos % (Auto) 1.3 Baso % (Auto) 0.3 Absolute Neuts (auto) 7.0 Absolute Lymphs (auto) 1.47 Nucleated RBC % 0 Differential Comment PT INR APTT Sodium 142 Potassium 3.3 L Chloride 110 H Carbon Dioxide 28.0 Anion Gap 4 L BUN 13 Creatinine 0.96 Estim Creat Clear Calc 103.14 Est GFR (MDRD) Af Amer 101 Est GFR (MDRD) Non-Af 84 BUN/Creatinine Ratio 13.5 Glucose 124 H Lactic Acid Calcium 8.4 L Phosphorus Magnesium 2.0 Total Bilirubin 0.30 Direct Bilirubin 0.06 AST 13 L ALT 18 Alkaline Phosphatase 83 Total Protein 5.2 L Albumin 2.0 L Globulin 3.2 Albumin/Globulin Ratio Urine Color Urine Clarity Urine pH Ur Specific [place] Urine Protein Urine Glucose (UA) Urine Ketones Urine Occult Blood Urine Nitrite Urine Bilirubin Urine Urobilinogen Ur Leukocyte Esterase Urine RBC Urine WBC Ur Squamous Epith Cells Urine Bacteria Urine Mucus 01/18/20 04:10 WBC RBC Hgb Hct MCV MCH MCHC RDW Std Deviation RDW Coeff of [place] Plt Count MPV Immature Gran % (Auto) Neut % (Auto) Lymph % (Auto) [place] % (Auto) Eos % (Auto) Baso % (Auto) Absolute Neuts (auto) Absolute Lymphs (auto) Nucleated RBC % Differential Comment PT INR APTT Sodium Potassium Chloride Carbon Dioxide Anion Gap BUN Creatinine Estim Creat Clear Calc Est GFR (MDRD) Af Amer Est GFR (MDRD) Non-Af BUN/Creatinine Ratio Glucose Lactic Acid Calcium Phosphorus 2.5 Magnesium Total Bilirubin Direct Bilirubin AST ALT Alkaline Phosphatase Total Protein Albumin Globulin Albumin/Globulin Ratio Urine Color Urine Clarity Urine pH Ur Specific [place] Urine Protein Urine Glucose (UA) Urine Ketones Urine Occult Blood Urine Nitrite Urine Bilirubin Urine Urobilinogen Ur Leukocyte Esterase Urine RBC Urine WBC Ur Squamous Epith Cells Urine Bacteria Urine Mucus Microbiology 01/16/20 15:00 Urine Catheter - Catheter Urine Culture - Preliminary Presumptive E. coli Clinical Impression(s) from Imaging Studies Abdomen/Pelvis CT 01/16/20 14:32 IMPRESSION: Partially visualized left lung base consolidation. Punctate nonobstructing right renal stones. Left extrarenal pelvis. Prominent stool within the rectum and distal sigmoid colon. Query stool impaction. Mild urinary bladder wall thickening. Consider cystitis. Electronically Signed: Aubrey Thomas, at 16:10 EST Tel , Service support , Chest X-Ray 01/16/20 15:00 IMPRESSION: Left lung base atelectasis/infiltrate. Electronically Signed: Aubrey Thomas, at 15:28 EST Tel , Service support , Medical Necessity - Tobacco Use Smoking Status: Never smoker Tobacco Use: Non-smoker Assessment/Plan All Active Problems (Last Reviewed 12/10/19 @ 17:28 by GARY Rayo) Urinary tract infection (Acute) Hypokalemia (Acute) Generalized weakness (Acute) Transient hypotension (Acute) Severe sepsis (Acute) Syncope due to orthostatic hypotension (Resolved) Bladder cancer (Resolved) Recurrent UTI (Acute) Syncope (Acute) Cystitis (Acute) Hypotension (Acute) RECOMMENDATIONS: 1. Continue antibiotics. Plan to de-escalate once sensitivities are obtained. 2. Slow reintroduction of home antihypertensive regimen. 3. Continue home BiPAP regimen. 4. Encourage incentive spirometer use while in bed. 5. The patient is medically stable for transfer out of the intensive care unit. 6. ID consult for potential chronic antibiotic suppressive therapy given recurrent UTIs. IMPRESSIONS: 1. Septic shock with concern for urinary tract source of infection Improved. The patient does have a history of recurrent urinary tract infections and is incontinent in his home environment. The patient has been successfully weaned from vasopressor support at this time. He remains hemodynamically stable. Preliminary urine culture is positive for E. coli. Sensitivities are currently pending. We will continue broad antibiotics until sensitivities are obtained, after which time, antibiotics can be de-escalated. Will obtain ID consult to evaluate for potential chronic antibiotic suppressive therapy given recurrent UTI history. 2. Hypokalemia Additional electrolyte repletion as ordered. 3. Obstructive sleep apnea Continue nocturnal BiPAP therapy per home regimen 4. History of bladder CA in remission/history of venous thromboembolic disease/Baseline MS/GERD/hypertension Complicates care, management, recovery and prognosis. Continue home Eliquis. Recommend slow reintroduction of baseline antihypertensive medications. This note was generated with [employer] dictation software. It may contain incorrect words, spelling, and punctuation that were not noted in checking the note before signing. Code Visit Inpatient E&M: 26602 Subs Hosp L3
[2020-01-18] MEDS: Potassium Chloride 10mEq/100mL 10 MEQ/100 ML IV.SOLN. 100 MEQ IV BOLUS ×4 (08:25→12:01)
[2020-01-18] MEDS: APIXABAN 5 MG TABLET PO (09:26)
[2020-01-18] MEDS: LISDEXAMFETAMINE DIMESYLATE 50 MG CAPSULE PO (09:38)
--- NOTE | 2020-01-18 10:26 | PCM.HP.ID ---
Problem List (1) Urinary tract infection Status: Acute Qualifiers: Urinary tract infection type: acute cystitis Hematuria presence: without hematuria Qualified Code(s): N30.00 - Acute cystitis without hematuria Reason for Consult: septic shock Consulted by: Dr. Liz History of Present Illness: The patient is a 64 year old M with MS, h/o bladder cancer, ureteral stent, and lithotripsy, presented with sudden onset fever, chills, shakes, not feeling well. No chest pain, cough, SOB, or abd pain. Is incontinent of urine at home, had not noticed any changes. In ED, found to have septic shock, admitted on ceftriaxone. He was admitted in November with UTI as well. Reports about 4 uti in past year. Feeling better, off pressors. Full ROS Performed and neg except as noted above. - Medical History Past Medical History (Chronic Problems): Chronic Problems (Last Reviewed 12/10/19 @ 17:28 by GARY Rayo) Paroxysmal atrial fibrillation (Chronic) Pulmonary embolism (Chronic) Atrial septal defect (Chronic) Abnormal EKG (Chronic) Multiple sclerosis (Chronic) Hypertension (Chronic) Hyperlipidemia (Chronic) Obstructive sleep apnea (Chronic) Allergies/Adverse Reactions: Allergies No Known Allergies Allergy (Verified 01/16/20 14:04) Home Medications: Ambulatory Orders Medication Instructions Recorded Vitamin E (Dl,Tocopheryl Acet) 400 units PO DAILY 09/14/17 [Vitamin E] meclizine 25 mg tablet 25 mg PO PRN PRN 11/04/17 ocrelizumab 30 mg/mL intravenous 600 mg IV .COMPLEX 11/04/17 solution tizanidine 4 mg capsule 4 mg PO Q8H PRN 11/04/17 Apixaban [Eliquis] 5 mg PO BID 05/28/18 Cholecalciferol (VIT D3) [Vitamin 5,000 unit PO DAILY 05/28/18 D3] Duloxetine Hcl [Cymbalta] 60 mg PO QHS 05/28/18 Multivitamins,Therapeutic 1 tab PO DAILY 05/28/18 [Multivitamin] lisinopril 40 mg tablet 40 mg PO QDAY 06/29/18 hydrochlorothiazide 25 mg tablet 12.5 mg PO PRN PRN 01/08/19 simvastatin 20 mg tablet 20 mg PO QHS #90 tab 04/09/19 albuterol sulfate 2.5 mg INHALATION Q4H PRN #180 vial 08/12/19 Pantoprazole Sodium [Protonix] 40 mg PO DAILY 12/01/19 carvedilol 12.5 mg tablet 12.5 mg PO BID #180 tab 12/10/19 Amlodipine [Norvasc] 5 mg PO DAILY 01/16/20 Lisdexamfetamine Dimesylate 50 mg PO DAILY 01/16/20 [Vyvanse] - Social History SMOKING STATUS:: Former smoker Vital Signs Temp Pulse Resp BP Pulse Ox 98.7 F 89 19 H 141/77 H 98 01/18/20 10:05 01/18/20 10:05 01/18/20 10:05 01/18/20 10:05 01/18/20 10:05 Oxygen Flow Rate (L/min) 3 Oxygen Delivery Method Room Air Weight: 120.2 kg Body Mass Index (BMI) 30.3 Microbiology Past 72 Hours 01/16/20 15:00 Urine Culture - Final Urine Catheter - Catheter Presumptive E. coli Laboratory Tests Past 24 Hrs 01/17/20 01/18/20 01/18/20 05:20 04:10 04:10 WBC 9.8 RBC 4.29 L Hgb 12.3 L Hct 38.1 L MCV 88.8 MCH 28.7 MCHC 32.3 RDW Std Deviation 42.9 RDW Coeff of Bravo 13.2 Plt Count 241 MPV 9.0 Immature Gran % (Auto) 0.400 Neut % (Auto) 71.9 H Lymph % (Auto) 15.0 L [place] % (Auto) 11.1 H Eos % (Auto) 1.3 Baso % (Auto) 0.3 Absolute Neuts (auto) 7.0 Absolute Lymphs (auto) 1.47 Nucleated RBC % 0 Sodium 142 Potassium 3.3 L Chloride 110 H Carbon Dioxide 28.0 Anion Gap 4 L BUN 13 Creatinine 0.96 Estim Creat Clear Calc 103.14 Est GFR (MDRD) Af Amer 101 Est GFR (MDRD) Non-Af 84 BUN/Creatinine Ratio 13.5 Glucose 124 H Calcium 8.4 L Phosphorus Magnesium 2.0 Total Bilirubin 0.30 Direct Bilirubin 0.06 AST 13 L ALT 18 Alkaline Phosphatase 83 Total Protein 5.2 L Albumin 2.0 L Globulin 3.2 01/18/20 04:10 WBC RBC Hgb Hct MCV MCH MCHC RDW Std Deviation RDW Coeff of Bravo Plt Count MPV Immature Gran % (Auto) Neut % (Auto) Lymph % (Auto) [place] % (Auto) Eos % (Auto) Baso % (Auto) Absolute Neuts (auto) Absolute Lymphs (auto) Nucleated RBC % Sodium Potassium Chloride Carbon Dioxide Anion Gap BUN Creatinine Estim Creat Clear Calc Est GFR (MDRD) Af Amer Est GFR (MDRD) Non-Af BUN/Creatinine Ratio Glucose Calcium Phosphorus 2.5 Magnesium Total Bilirubin Direct Bilirubin AST ALT Alkaline Phosphatase Total Protein Albumin Globulin - Other Studies Radiology: [] reviewed Other Studies: [] Route of nutrition/ use of supplements: [] Nutritional Intake: [] IV Site: [] Vo Catheter: [] - Physical Exam General: Alert, Oriented x3, Cooperative, No apparent distress HEENT: Atraumatic, PERRLA, EOMI Neck: Supple, No Nodes Lungs: Clear to auscultation, Normal air movement Cardiovascular: Regular rate, Regular Rhythm, No murmurs Abdomen: Soft, Non Tender, Non-Distended Extremities: No edema Skin: No rashes IV Site: Peripheral Musculoskeletal: No Tenderness to Palpation of Joints or Extremities Neurological: Cranial nerves II-XII grossly intact - Assessment/Plan Antibiotics: [] Assessment/Plan: [] Active and Suspected Problems (Last Reviewed 12/10/19 @ 17:28 by GARY Rayo) Severe sepsis (Acute) septic shock due to recurrent uti - Much improved. On ceftriaxone. ucx with ecoli. Will consult Dr. Bernardo to see if something with the stones or anything else anatomically can be done to help prevent further infection. Will follow, thank you, d/w Dr. Liz
--- NOTE | 2020-01-18 11:16 | CASEMGMT ---
ELIZABETH PINEDA Note: Plan is for dc today. [facility] nurse updated. RN MIRIAM spoke with patient who states no new dc needs. His plans to come after work with their accessible van to transport home. Ousmane HARMAN RN ACM
--- NOTE | 2020-01-18 11:31 | DCINST_ITS ---
- Discharge Diagnoses Current Active Problems: Current Active and Chronic Problems (Last Reviewed 12/10/19 @ 17:28 by GARY Rayo) Severe sepsis (Acute) You will use the following diet at home:: Cardiac Your food should be the consistency of: Regular Your liquids should be the consistency of: Regular/Thin Discharge Activity: Return to Normal Activity Allergies/Adverse Reactions: Allergies No Known Allergies Allergy (Verified 01/16/20 14:04) Medications to take at Discharge Vitamin E (Dl,Tocopheryl Acet) [Vitamin E] 400 units PO DAILY 09/14/17 meclizine 25 mg tablet 25 mg PO PRN PRN 11/04/17 ocrelizumab 30 mg/mL intravenous solution 600 mg IV .COMPLEX 11/04/17 tizanidine 4 mg capsule 4 mg PO Q8H PRN 11/04/17 Apixaban [Eliquis] 5 mg PO BID 05/28/18 Cholecalciferol (VIT D3) [Vitamin D3] 5,000 unit PO DAILY 05/28/18 Duloxetine Hcl [Cymbalta] 60 mg PO QHS 05/28/18 Multivitamins,Therapeutic [Multivitamin] 1 tab PO DAILY 05/28/18 simvastatin 20 mg tablet 20 mg PO QHS #90 tab 04/09/19 albuterol sulfate 2.5 mg INHALATION Q4H PRN #180 vial 08/12/19 Pantoprazole Sodium [Protonix] 40 mg PO DAILY 12/01/19 carvedilol 12.5 mg tablet 12.5 mg PO BID #180 tab 12/10/19 Amlodipine [Norvasc] 5 mg PO DAILY 01/16/20 Lisdexamfetamine Dimesylate [Vyvanse] 50 mg PO DAILY 01/16/20 Tamsulosin HCl [Flomax] 0.4 mg PO DAILY #30 cap.er.24h 01/18/20 Primary Care Physician: Amanuel Duckworth III, MD [Primary Care Provider] - Please follow up with your Primary Care Physician in: 1 week Test Results: Test results from this visit will be discussed in further detail at your follow- up appointment, if applicable. Please Follow Up With: Wilmer Bernardo MD When: 2 weeks Proposed Discharge Date: 01/18/20
--- NOTE | 2020-01-18 11:34 | NURSING ---
Spoke with Ivanna at Dr. Bernardo's office. She states Dr. Bernardo will see him as an outpatient since patient is already established in their office. Appointment is January 26 at 2478
--- NOTE | 2020-01-18 15:10 | DS.PCM_ITS ---
Discharge Date and Diagnosis - Problem List Patient Problems: Active and Suspected Problems (Last Reviewed 12/10/19 @ 17:28 by GARY Rayo) Severe sepsis (Acute) Date of Admission: 01/16/20 Date of Discharge: 01/18/20 - Primary Discharge Diagnosis Active and Suspected Problems (Last Reviewed 12/10/19 @ 17:28 by GARY Rayo) Septic shock secondary to UTI secondary to neurogenic bladder E. coli UTI Recurrent urinary tract infection Neurogenic bladder secondary to MS Hypokalemia, hypomagnesemia, hypophosphatemia - Secondary Discharge Diagnosis Chronic Problems (Last Reviewed 12/10/19 @ 17:28 by GARY Rayo) Paroxysmal atrial fibrillation (Chronic) Pulmonary embolism (Chronic) Atrial septal defect (Chronic) Abnormal EKG (Chronic) Multiple sclerosis (Chronic) Hypertension (Chronic) Hyperlipidemia (Chronic) Obstructive sleep apnea (Chronic) Hospital Course and Treatment Imaging Results: CT/Abdomen/Pelvis without Cont IMPRESSION: Partially visualized left lung base consolidation. Punctate nonobstructing right renal stones. Left extrarenal pelvis. Prominent stool within the rectum and distal sigmoid colon. Query stool impaction. Mild urinary bladder wall thickening. Consider cystitis. RAD/Chest 1 View (Portable) IMPRESSION: Left lung base atelectasis/infiltrate. Consultations: Agusto-critical care Kelly-infectious disease Operations: None Procedures: None Summary of Care Provided: Hospital course: The patient is a 64 year old M with past medical history as above notably for MS, severe, with neurogenic bladder, patient is chronically incontinent, has multiple admissions with urinary tract infections. He presented to the emergency room with chills and dizziness. He was found to be septic with a urinary tract infection. Overnight he developed hypotension was felt to have septic shock. He was temporarily on pressors. He was treated with Rocephin. Cultures came back with E. coli with good sensitivities. Patient was weaned off pressors. He had complete resolution of his symptoms. He was prescribed Keflex to complete a total of 10 days of therapy. He will likely need placed on prophylactic antibiotics. I advised him to follow-up with his urologist in 2 weeks, follow-up PCP in 1 week. His blood pressure remained borderline, he was instructed to check his blood pressure tomorrow at home and if stable he can resume Coreg as his pulse 80s-90s and he has paroxysmal atrial fibrillation. He will remain off of Norvasc and lisinopril until further advised by his primary care physician. He was also started on Flomax with his chronic incontinence. Patient was discharged home in stable condition. This patient was seen by Juvenal Feliciano PA-C under the supervision of Doctor Shayan. [] Patient Problems: Active and Suspected Problems (Last Reviewed 12/10/19 @ 17:28 by GARY Rayo) Severe sepsis (Acute) - Physical Exam Vitals/I&O's: Vital Signs Temp Pulse Resp BP Pulse Ox 99.4 F H 88 16 130/77 H 97 01/18/20 14:59 01/18/20 14:59 01/18/20 14:59 01/18/20 14:59 01/18/20 14:59 Oxygen Flow Rate (L/min) 3 Oxygen Delivery Method Room Air Weight: 264 lb 15.93 oz Body Mass Index (BMI) 30.3 Intake and Output for Last 24 Hours 01/16/20 01/17/20 01/18/20 23:59 23:59 23:59 Intake Total 4493.33 / 4493.33 3695.31 / 3695.31 810 / 810 Output Total 250 / 250 1200 / 1200 1825 / 1825 Balance 4243.33 / 4243.33 2495.31 / 2495.31 -1015 / -1015 General: Alert, Oriented x3, Cooperative HEENT: Atraumatic, PERRLA, EOMI, Normocephalic Neck: Supple, No JVD, Negative Carotid Bruits Lungs: Clear to auscultation, Normal air movement Cardiovascular: Regular rate, No murmurs Abdomen: Bowel Sounds Present, Soft, Non Tender Extremities: No edema, Capillary Refill Less than 3 Seconds Skin: No rashes, No breakdown Musculoskeletal: No Tenderness to Palpation of Joints or Extremities Neurological: Cranial nerves II-XII grossly intact Psych/Mental Status: Normal Affect, Appropriate, Alert and oriented to time, place, person, mood and affect Microbiology Past 72 Hours 01/16/20 15:00 Urine Catheter - Catheter Urine Culture - Final Presumptive E. coli Laboratory Results 01/18/20 04:10: WBC 9.8, RBC 4.29 L, Hgb 12.3 L, Hct 38.1 L, MCV 88.8, MCH 28.7, MCHC 32.3, RDW Std Deviation 42.9, RDW Coeff of Bravo 13.2, Plt Count 241, MPV 9.0, Immature Gran % (Auto) 0.400, Neut % (Auto) 71.9 H, Lymph % (Auto) 15.0 L, [place] % (Auto) 11.1 H, Eos % (Auto) 1.3, Baso % (Auto) 0.3, Absolute Neuts (auto) 7.0, Absolute Lymphs (auto) 1.47, Nucleated RBC % 0 01/18/20 04:10: Sodium 142, Potassium 3.3 L, Chloride 110 H, Carbon Dioxide 28.0, Anion Gap 4 L, BUN 13, Creatinine 0.96, Estim Creat Clear Calc 103.14, Est GFR (MDRD) Af Amer 101, Est GFR (MDRD) Non-Af 84, BUN/Creatinine Ratio 13.5, Glucose 124 H, Calcium 8.4 L, Magnesium 2.0 01/18/20 04:10: Phosphorus 2.5 Current Medications Acetaminophen (Tylenol) 650 mg PO Q6H PRN PRN PRN Reason: Pain Score 1-10/Temp > 100.7 F Last Admin: 01/17/20 02:31 Dose: 650 mg Documented by: Apixaban (Eliquis) 5 mg PO BID [facility] Last Admin: 01/18/20 09:26 Dose: 5 mg Documented by: Atorvastatin Calcium (Lipitor) 10 mg PO QHS [facility] Last Admin: 01/17/20 21:57 Dose: 10 mg Documented by: Dextrose (D50w Syringe) 0 gm IV X1 PRN; Protocol PRN Reason: Hypoglycemia Duloxetine HCl (Cymbalta) 60 mg PO QHS [facility] Last Admin: 01/17/20 21:57 Dose: 60 mg Documented by: Glucagon () 1 mg IM .X1 PRN PRN Reason: Hypoglycemia Ceftriaxone Sodium 2 gm/ (Sodium Chloride) 50 mls @ 100 mls/hr IV Q24 [facility] Last Infusion: 01/18/20 10:11 Dose: Infused Documented by: Norepinephrine Bitartrate 8 mg (/ Sodium Chloride) 250 mls @ 9.375 mls/hr CONT INF .[id number] [facility]; Protocol Last Admin: 01/18/20 10:11 Dose: Not Given Documented by: Lisdexamfetamine Dimes[facility] ([facility]se) [facility] Admin: 01/18/20 09:38 Dose: 50 mg Documented by: Ondansetron HCl (Zofran) 4 mg IV Q8H PRN PRN PRN Reason: NAUSEA/VOMITING Sodium Chloride () 10 - 40 ml IV UD PRN PRN Reason: SALINE FLUSH Last Admin: 01/17/20 05:51 Dose: 10 ml Documented by: Tizanidine HCl (Zanaflex) 4 mg PO Q8H PRN PRN PRN Reason: Muscle Spasm Discharge Diet: Low fat/ Low Cholesterol, 2000 mg Sodium Diet Discharge Activity: Return to Normal Activity Home Medications: Medications to take at Discharge Vitamin E (Dl,Tocopheryl Acet) [Vitamin E] 400 units PO DAILY 09/14/17 meclizine 25 mg tablet 25 mg PO PRN PRN 11/04/17 ocrelizumab 30 mg/mL intravenous solution 600 mg IV .COMPLEX 11/04/17 tizanidine 4 mg capsule 4 mg PO Q8H PRN 11/04/17 Apixaban [Eliquis] 5 mg PO BID 05/28/18 Cholecalciferol (VIT D3) [Vitamin D3] 5,000 unit PO DAILY 05/28/18 Duloxetine Hcl [Cymbalta] 60 mg PO QHS 05/28/18 Multivitamins,Therapeutic [Multivitamin] 1 tab PO DAILY 05/28/18 simvastatin 20 mg tablet 20 mg PO QHS #90 tab 04/09/19 albuterol sulfate 2.5 mg INHALATION Q4H PRN #180 vial 08/12/19 Pantoprazole Sodium [Protonix] 40 mg PO DAILY 12/01/19 carvedilol 12.5 mg tablet 12.5 mg PO BID #180 tab 12/10/19 Amlodipine [Norvasc] 5 mg PO DAILY 01/16/20 Lisdexamfetamine Dimesylate [Vyvanse] 50 mg PO DAILY 01/16/20 Cephalexin [Keflex] 500 mg PO TID #21 cap 01/18/20 Tamsulosin HCl [Flomax] 0.4 mg PO DAILY #30 cap.er.24h 01/18/20 Following Prescrptions Were Given to Patient: Tamsulosin HCl [Flomax] 0.4 mg PO DAILY #30 cap.er.24h Transmission Status: Received by [facility] Cephalexin [Keflex] 500 mg PO TID #21 cap Transmission Status: Received by [facility] Primary Care Physician: Amanuel Duckworth III, MD [Primary Care Provider] - Please follow up with your Primary Care Physician in: 1 week Please Follow Up With: Wilmer Bernardo MD When: 2 weeks Disposition: Home Minutes spent on discharge:: 40 Patient Condition:: Stable Medical Necessity - Tobacco Use Smoking Status: Never smoker Tobacco Use: Non-smoker Meaningful Use Info Meaningful Use Diagnoses (Choose all that apply): None applicable
--- NOTE | 2020-01-20 12:55 | CASEMGMT ---
ELIZABETH PINEDA Discharge Follow-Up Phone Call. Adriana: Jerri Strata: 3 Discharge Date: 01/18/20 Adm Dx: Severe Sepsis, UTI Call to pt to inquire about how he has been doing since being discharged from the hospital. Pt states he is not too bad. He states the first couple of days was rough but today I'm feeling pretty good. He states he cancelled one of the appt's for [facility] visit, b/c he was feeling yucky but is awaiting a call from [facility] to reschedule. He denies having any questions about the discharge instructions or medications. He states he thinks his son picked up the Keflex, and states, I just take whatever my gives me. She handles all of that. He is aware of the appt w/Dr Bernardo on 01/26 and states his is planning to call either today or tomorrow to make an appt with his PCP. ELIZABETH PINEDA thanked pt for taking the time for talking w/ELIZABETH PINEDA today and for choosing [facility]. Nakia HARMAN RN, CM
== END 2020-01-18 17:04 | disposition home or self-care (01) | DRG 871 ==
LOC: ED 16:41 → ICU 01-17 07:24
PROVIDERS: Physician Assistant; Admitting Provider Family Medicine; Emergency Provider Emergency Medicine; PCP Family Medicine; Referring Provider Family Medicine; Visit Provider Internal Medicine
DX: A41.9 Sepsis, unspecified organism (principal); R65.21 Severe sepsis with septic shock; N39.0 Urinary tract infection, site not specified; Q21.1 Atrial septal defect; G35 Multiple sclerosis; G47.33 Obstructive sleep apnea (adult) (pediatric); E78.5 Hyperlipidemia, unspecified; B96.20 Unspecified Escherichia coli [E. coli] as the cause of diseases classified elsewhere; N20.0 Calculus of kidney; E87.6 Hypokalemia; K21.9 Gastro-esophageal reflux disease without esophagitis; I10 Essential (primary) hypertension; E83.42 Hypomagnesemia; N31.9 Neuromuscular dysfunction of bladder, unspecified; I48.0 Paroxysmal atrial fibrillation; R32 Unspecified urinary incontinence; E83.39 Other disorders of phosphorus metabolism; Z85.51 Personal history of malignant neoplasm of bladder; Z87.440 Personal history of urinary (tract) infections; Z79.01 Long term (current) use of anticoagulants; Z86.711 Personal history of pulmonary embolism; Z92.21 Personal history of antineoplastic chemotherapy
CPT/HCPCS: 71045; 74176; 80048; 80053; 80076; 81001; 83605; 83735; 84100; 85025; 85610; 85730; 87040; 87086; 87088; 87186; 93005; 97162; 97167; 97802; 99251; 99285; J7030; J7050; P9612; A4216; G0463; J0696

== ENCOUNTER 2020-02-04 09:47 | Day surgery (SDC) | payer MEDICARE, SELFPAY ==
[2020-01-16 17:30] VITALS: BMI 30.3
--- NOTE | 2020-02-04 06:00 | RAD_ITS ---
STUDY: X-RAY - ABDOMEN/PELVIS REASON FOR EXAM: Male, 64 years old. PRE SURGERY KIDNEY STONE TECHNIQUE: Single AP view of the abdomen / pelvis. COMPARISON: None. FINDINGS: Lung base is not entirely included in the [id number] with visualized right lung base clear. Severe diffuse dilatation of the colon on the right, unchanged since 01/16/2020 demonstrated. There is distention of the rectosigmoid suggestive of fecal impaction. There is no demonstrated free abdominal air. The visualized liver, spleen and kidneys are grossly normal in size and morphology. Normal soft tissue structures. RAD/Abdomen Single View IMPRESSION: Severe dilatation of the colon more so of the right-sided lobe otherwise incompletely included in the [id number]. This corresponds to the region of the hepatic flexure. Given stability since 01/16/2020 and given the the morphology this is atypical for volvulus are not excluded. Correlation with clinical presentation recommended and if indicated, CT or Gastrografin enema recommended. Electronically Signed: Cynthia Mendoza MD at 0:34 EDT , Service support ,
[2020-02-04 10:29] VITALS: BP 135/85; PULSE 72; RESP 16; TEMP 36.3; O2SAT 100; BMI 30.5
[2020-02-04] MEDS: Lactated Ringers 1,000 ML 100 ML IV (10:45)
[2020-02-04] MEDS: Cefazolin 2 GM in 0.9% Normal Saline 100 ML IV (12:22)
--- NOTE | 2020-02-04 12:30 | DCINST_ITS ---
Discharge Diet: Light diet - advance as tolerated Discharge Activity: Return to Normal Activity Call your doctor if your incision/area has: Sudden Increased Bleeding Call your doctor if you observe: Fever of 101 or Higher Instructions: Shock Wave Lithotripsy Allergies/Adverse Reactions: Allergies No Known Allergies Allergy (Verified 02/04/20 10:07) Medications to take at Discharge Vitamin E (Dl,Tocopheryl Acet) [Vitamin E] 400 units PO DAILY 09/14/17 meclizine 25 mg tablet 25 mg PO PRN PRN 11/04/17 ocrelizumab 30 mg/mL intravenous solution 600 mg IV .COMPLEX 11/04/17 tizanidine 4 mg capsule 4 mg PO Q8H PRN 11/04/17 Apixaban [Eliquis] 5 mg PO BID 05/28/18 Cholecalciferol (VIT D3) [Vitamin D3] 5,000 unit PO DAILY 05/28/18 Duloxetine Hcl [Cymbalta] 60 mg PO QHS 05/28/18 Multivitamins,Therapeutic [Multivitamin] 1 tab PO DAILY 05/28/18 simvastatin 20 mg tablet 20 mg PO QHS #90 tab 04/09/19 albuterol sulfate 2.5 mg INHALATION Q4H PRN #180 vial 08/12/19 Pantoprazole Sodium [Protonix] 40 mg PO DAILY 12/01/19 carvedilol 12.5 mg tablet 12.5 mg PO BID #180 tab 12/10/19 Amlodipine [Norvasc] 5 mg PO DAILY 01/16/20 Lisdexamfetamine Dimesylate [Vyvanse] 50 mg PO DAILY 01/16/20 Cephalexin [Keflex] 500 mg PO TID #21 cap 01/18/20 Tamsulosin HCl [Flomax] 0.4 mg PO DAILY #30 cap.er.24h 01/18/20 Ciprofloxacin [Cipro] 500 mg PO BID #14 tab 02/04/20 Hydrocodone/Acetaminophen [Mobridge 5-325 Tablet] 1 ea PO Q4H PRN PRN 5 Days #14 tab 02/04/20 Lisinopril [Zestril] 40 mg PO BREAKFAST 02/04/20 The following prescriptions were given: Ciprofloxacin [Cipro] 500 mg PO BID #14 tab Transmission Status: Pending to [facility]/pharmacy #[id number] Hydrocodone/Acetaminophen [Mobridge 5-325 Tablet] 1 ea PO Q4H PRN PRN 5 Days #14 tab PRN Reason: Pain Score 1-10 Transmission Status: Pending to [facility]/pharmacy #[id number] Primary Care Physician: Amanuel Duckworth III, MD [Primary Care Provider] - Test Results: Test results from this visit will be discussed in further detail at your follow- up appointment, if applicable. Please Follow Up With: Wilmer Bernardo MD When: please call to make an appointment.
--- NOTE | 2020-02-04 13:27 | PCM.OPRPT ---
Report of Operation Date of Procedure: 02/04/20 Pre-Operative Diagnosis: Left large kidney stone radiolucent Post-Operative Diagnosis: Same Surgery/Procedure Performed:: Cystoscopy, left retrograde pyelogram,interpretation of images, left stent placement, left extracorporeal shockwave lithotripsy. Description of Surgical Findings:: 64-year-old male with history of recurrent bladder infections was found to have a stone in the kidney appeared to be a radiolucent possibly infectious stone plan to proceed with treatment of the stone with shockwave lithotripsy and also place a stent today. Patient was taken back to the operating room at the smooth induction of general anesthesia he was placed supine on the lithotripter table, the penis and testicles were prepped and draped in usual sterile fashion went into the bladder with a 21 Lithuanian rigid cystourethroscope drained out the bladder inspected the bladder with a 30 and 70 degree lens no tumors or stones seen within the bladder I then cannulated the left ureteral orifice with a Glidewire and a Pollack catheter advanced this up to the UPJ performed a retrograde pyelogram to could see a filling defect in the floor of the left pelvis in the left lower pelvis and lower pole of the kidney. We then performed shockwave lithotripsy and and monitored the fragmentation with retrograde pyelogram during the procedure. At the end of the procedure I put a wire up in the left kidney over the wire place a stent is a 6 Lithuanian by 26 cm stent pulled the wire stent: The kidney bladder good position use a string of the stent the position of the stent and then at the end could this filling defect in the lower pole of the kidney had resolved. Appeared to be a successful fragmentation of the radiolucent stone. He also go home with potassium citrate pain medicine and antibiotics we will see him next week for stent removal prior to do a follow-up CAT scan in about a month and a half. Type of Anesthesia:: General Estimated Blood Loss (mL): none - Admit VTE Documentation VTE Present on Admission: No VTE Mechan Device Prophylaxis: SCD's
[2020-02-04 13:37] VITALS: BP 135/85; BP 94/67; PULSE 81; RESP 16; TEMP 36.1; O2SAT 94
[2020-02-04 13:45] VITALS: BP 109/80; BP 135/85; PULSE 74; RESP 16; O2SAT 94
[2020-02-04 13:59] VITALS: BP 117/84; BP 135/85; PULSE 77; RESP 16; TEMP 36.1; O2SAT 95
[2020-02-04 15:19] VITALS: BP 123/85; BP 135/85; PULSE 76; RESP 14; TEMP 36.5; O2SAT 98
== END 2020-02-04 15:25 | disposition home or self-care (01) ==
LOC: SDC 09:49 → AC 09:50
PROVIDERS: PCP Family Medicine; Referring Provider Urology; Visit Provider Urology
PROC: (CPT 50590; principal; 2020-02-04 11:50)
DX: N20.0 Calculus of kidney (principal); N10 Acute pyelonephritis; G35 Multiple sclerosis; I10 Essential (primary) hypertension; E78.00 Pure hypercholesterolemia, unspecified; I48.91 Unspecified atrial fibrillation; G47.30 Sleep apnea, unspecified; Z87.442 Personal history of urinary calculi; Z87.440 Personal history of urinary (tract) infections; Z85.51 Personal history of malignant neoplasm of bladder; Z86.718 Personal history of other venous thrombosis and embolism; Z79.01 Long term (current) use of anticoagulants; Z79.899 Other long term (current) drug therapy
CPT/HCPCS: 00873; 50590; 52332; 74018; J7120; C1769; C2617; J2405

== ENCOUNTER → 2020-03-15 13:25 | Outpatient (CLI) | payer MEDICARE, SELFPAY ==
--- NOTE | 2020-03-15 13:29 | CT_ITS ---
STUDY: CT ABDOMEN AND PELVIS WITHOUT CONTRAST REASON FOR EXAM: Male, 64 years old. CALCULUS OF KIDNEY RADIATION DOSAGE (If Supplied By Facility): CTDIvol = ( 19.11 ) mGy, DLP = ( 491.33 ) mGycm TECHNIQUE: Transaxial images were obtained from the dome of the diaphragm to the symphysis pubis without oral contrast, and without intravenous contrast. Sagittal and coronal images were reconstructed. Individualized dose optimization techniques were used for this CT. COMPARISON: Comparison is made with prior study of January 16, 2020. FINDINGS: Stable elevation of the left hemidiaphragm. Stable increased markings at the lung bases suggestive of scarring. The visualized portions of the heart are within normal limits. Normal liver. Normal gallbladder and extrahepatic biliary system. Normal spleen. Normal pancreas. Normal bilateral adrenal glands. Punctate nonobstructive calculi in the right kidney. Once again, there is evidence of a staghorn calculus in the left kidney although this has decreased in size and fragmented as compared to prior study. Residual mild left hydronephrosis. Stable 1.3 cm cyst in the upper pole of the left kidney. Normal visualized stomach. Normal small intestine. Large amount of fecal material is seen in the colon. Scattered sigmoid diverticula. The appendix is visualized and appears normal. There is scattered atherosclerotic calcification of the abdominal aorta, without a demonstrated aneurysm. Normal inferior vena cava. Normal retroperitoneum. Normal urinary bladder. Normal abdominal wall. There are degenerative changes of the visualized lumbar spine. Mild loss of height of the superior endplate of the L2 vertebrae. CT/Abdomen/Pelvis without Cont IMPRESSION: Staghorn calculus in the left kidney which has decreased in size and fragmented as compared to prior study. Electronically Signed: Bc Bishop, at 14:33 EDT , Service support ,
== END ==
PROVIDERS: PCP Family Medicine; Referring Provider Urology; Visit Provider Urology
DX: N20.0 Calculus of kidney (principal)
CPT/HCPCS: 74176

== ENCOUNTER → 2020-04-21 07:51 | Outpatient (CLI) | payer MEDICARE, SELFPAY ==
[2020-04-05 09:22] VITALS: BMI 30.5
[2020-04-21 07:59] VITALS: BP 115/79; PULSE 82; RESP 18; TEMP 36.1; O2SAT 93; BMI 30.4
[2020-04-21] MEDS: Acetaminophen 500 MG Tablet 1000 MG PO (08:07)
[2020-04-21] MEDS: 0.9% NaCl IVPB Med Flush (250 mL) 15 ML IV (08:08)
[2020-04-21] MEDS: 0.9% NaCl Peripheral Flush Adult/Peds IV (08:08)
[2020-04-21] MEDS: DiphenhydrAMINE 50 MG/ML Syringe 25 MG IV (08:08)
[2020-04-21] MEDS: MethylPREDNISolone 125 MG/2 ML Vial 100 MG IV (08:09)
[2020-04-21] MEDS: Ocrelizumab 600mg Infusion 40 MG IV (08:51)
== END ==
PROVIDERS: PCP Family Medicine; Referring Provider Psychiatry & Neurology Sleep Medicine; Visit Provider Psychiatry & Neurology Sleep Medicine
DX: G35 Multiple sclerosis (principal)
CPT/HCPCS: 96365; 96366 ×3; J7040; J7050; A4216; J2350

== ENCOUNTER → 2020-07-13 08:47 | Outpatient (CLI) | payer MEDICARE, SELFPAY ==
[2020-04-21 07:59] VITALS: BMI 30.4
[2020-07-13 10:10] LABS: AST(SGOT) 14 U/L (15-37); Alanine Aminotransfer ALT/SGPT 20 U/L (16-61); Albumin, Serum 3.3 g/dL (3.2-5.0); Alkaline Phosphatase 112 U/L (45-117); Cholesterol 134 mg/dL (200); Globulin 3.8 g/dL (2.2-4.2); High Density Lipoprotein 38 mg/dL; Protein, Total 7.1 g/dL (6.4-8.2); Triglycerides 151 mg/dL; Very Low Density Lipoprotein 30 mg/dL (5-40)
== END ==
PROVIDERS: Physician Assistant Medical; PCP Family Medicine; Referring Provider Internal Medicine Cardiovascular Disease; Visit Provider Internal Medicine Cardiovascular Disease
DX: I10 Essential (primary) hypertension (principal); E78.5 Hyperlipidemia, unspecified
CPT/HCPCS: 36415; 80061; 80076

== ENCOUNTER → 2020-09-21 09:23 | Outpatient (CLI) | payer MEDICARE, SELFPAY ==
--- NOTE | 2020-09-21 09:26 | CT_ITS ---
STUDY: CT ABDOMEN AND PELVIS WITHOUT CONTRAST REASON FOR EXAM: Male, 65 years old. KIDNEY STONE RADIATION DOSAGE (If Supplied By Facility): CTDIvol = ( 20.09 ) mGy, DLP = ( 1099.12 ) mGycm TECHNIQUE: Transaxial images were obtained from the dome of the diaphragm to the symphysis pubis without oral contrast, and without intravenous contrast. Sagittal and coronal images were reconstructed. Individualized dose optimization techniques were used for this CT. COMPARISON: Comparison is made with prior study dated 03/15/2020. FINDINGS: Once again, there is elevation of the left hemidiaphragm. Stable minimal increased markings along the posterior medial segment of the right lower lobe suggestive of scarring. The visualized portions of the heart are within normal limits. There is a 7.4 mm cyst in the inferior medial aspect of the right lobe of the liver. Normal gallbladder and extrahepatic biliary system. Normal spleen. Normal pancreas. Normal bilateral adrenal glands. Stable tiny nonobstructive right intrarenal calculi. Nonspecific right perinephric stranding. Moderate degree of left hydronephrosis. This as progressed as compared to prior study. There is a 1 cm calculus in the lower pole calyx of the left kidney. There is also evidence of a 1.3 cm calculus along the dependent portion of the left renal pelvis. Mild degree of left perinephric stranding. There is a [id number] degree of left hydroureter down to the insertion into the bladder. No obstructive uropathy is seen. Stable 1.3 cm cyst in the upper pole of the left kidney. Normal visualized stomach. Normal small intestine. Moderate amount of fecal material is seen in the colon. Scattered sigmoid diverticula. The appendix is visualized and appears normal. Normal abdominal aorta. Normal inferior vena cava. Normal retroperitoneum. There is deformity of the urinary bladder with thickening along the anterior aspect of the urinary bladder and increased markings in the surrounding pelvic fat adjacent to the urinary bladder. There are prostatic calcifications. Normal abdominal wall. There are diffuse degenerative changes of the visualized lumbar spine. Stable loss of height of the superior endplate of the L2 vertebrae. CT/Abdomen/Pelvis without Cont IMPRESSION: Since prior study, there has been progression of the left hydronephrosis. The previously seen staghorn calculus has decreased in size. There is no evidence of obstruction at this time. Electronically Signed: Bc Bishop, at 10:29 EDT , Service support ,
== END ==
PROVIDERS: PCP Family Medicine; Referring Provider Urology; Visit Provider Urology
DX: N20.0 Calculus of kidney (principal); Z87.442 Personal history of urinary calculi
CPT/HCPCS: 74176

== ENCOUNTER → 2020-11-02 07:52 | Outpatient (CLI) | payer MEDICARE, SELFPAY ==
[2020-04-05 09:22] VITALS: BMI 30.5
[2020-10-11 10:44] VITALS: BMI 30.5
[2020-11-02] MEDS: Acetaminophen 500 MG Tablet 1000 MG PO (08:19)
[2020-11-02] MEDS: MethylPREDNISolone 125 MG/2 ML Vial 100 MG IV (08:22)
[2020-11-02] MEDS: DiphenhydrAMINE 50 MG/ML Syringe 25 MG IV (08:26)
[2020-11-02] MEDS: 0.9% NaCl IVPB Med Flush (250 mL) 15 ML IV (08:27)
[2020-11-02] MEDS: 0.9% NaCl Peripheral Flush Adult/Peds IV (08:27)
[2020-11-02 08:30] VITALS: BP 123/85; PULSE 84; RESP 16; TEMP 35.8; O2SAT 96
[2020-11-02] MEDS: Ocrelizumab 600mg Infusion 40 MG IV (09:03)
[2020-11-02 13:20] VITALS: TEMP 36.1
[2020-11-02 14:27] VITALS: BP 120/76; PULSE 98; RESP 16; TEMP 36.1; O2SAT 96
== END ==
PROVIDERS: PCP Family Medicine; Referring Provider Psychiatry & Neurology Sleep Medicine; Visit Provider Psychiatry & Neurology Sleep Medicine
DX: G35 Multiple sclerosis (principal)
CPT/HCPCS: 96365; 96366 ×3; 96374; 96375; 96372; J7040; J7050; A4216; J2350

== ENCOUNTER → 2021-01-11 09:19 | Outpatient (CLI) | payer MEDICARE, SELFPAY ==
[2021-01-11 11:35] LABS: AST(SGOT) 10 U/L (15-37); Alanine Aminotransfer ALT/SGPT 19 U/L (16-61); Albumin, Serum 3.5 g/dL (3.2-5.0); Alkaline Phosphatase 112 U/L (45-117); Bilirubin, Direct 0.17 mg/dL (0.00-0.30); Cholesterol 144 mg/dL (200); Globulin 3.7 g/dL (2.2-4.2); High Density Lipoprotein 45 mg/dL; Protein, Total 7.2 g/dL (6.4-8.2); Triglycerides 137 mg/dL; Very Low Density Lipoprotein 27 mg/dL (5-40)
== END ==
PROVIDERS: PCP Family Medicine; Referring Provider Internal Medicine Cardiovascular Disease; Visit Provider Specialist
DX: E78.00 Pure hypercholesterolemia, unspecified (principal); E78.5 Hyperlipidemia, unspecified
CPT/HCPCS: 36415; 80061; 80076

== ENCOUNTER → 2021-05-03 07:53 | Outpatient (CLI) | payer MEDICARE, SELFPAY ==
[2020-10-11 10:44] VITALS: BMI 30.5
[2021-05-03] MEDS: Acetaminophen 500 MG Tablet 1000 MG PO (08:15)
[2021-05-03] MEDS: MethylPREDNISolone 125 MG/2 ML Vial 100 MG IV (08:16)
[2021-05-03] MEDS: DiphenhydrAMINE 50 MG/ML Syringe 25 MG IV (08:19)
[2021-05-03 08:25] VITALS: BP 95/57; PULSE 85; RESP 16; TEMP 35.8; O2SAT 95
[2021-05-03] MEDS: 0.9% NaCl Peripheral Flush Adult/Peds IV (08:25)
[2021-05-03] MEDS: Ocrelizumab 600mg Infusion 40 MG IV (08:57)
[2021-05-03] MEDS: 0.9% NaCl IVPB Med Flush (250 mL) 15 ML IV (08:58)
[2021-05-03 14:21] VITALS: BP 108/63; PULSE 91; RESP 16; TEMP 36.3; O2SAT 94
== END ==
PROVIDERS: PCP Family Medicine
DX: G35 Multiple sclerosis (principal)
CPT/HCPCS: 96365; 96366 ×3; J7040; J7050; A4216; J2350

== ENCOUNTER 2021-05-15 18:10 | Observation (INO) | payer MEDICARE, SELFPAY ==
[2021-05-15] VITALS (9 sets, daily range): BP systolic 86–112; BP diastolic 43–74; PULSE 56–95; RESP 16–19; TEMP 36.6–37; O2SAT 93–97; BMI 32.2; BMI 31.0
--- NOTE | 2021-05-15 18:31 | EKG12_ITS ---
Test Reason : WEAKNESS Blood Pressure : / mmHG Vent. Rate : 083 BPM Atrial Rate : 083 BPM P-R Int : 196 ms QRS Dur : 072 ms QT Int : 378 ms P-R-T Axes : 025 -14 050 degrees QTc Int : 444 ms Normal sinus rhythm Low voltage QRS (Limb Leads) Confirmed by IDALIA WINCHESTER, JAIME ([id number]), movie editor BRENDA VERMA ([id number]) on 05/17/2021 12:29:28 PM Referred By: NATANAEL Confirmed By:JAIME FRIEDMAN MD
--- NOTE | 2021-05-15 18:31 | CT_ITS ---
EXAMINATION : Head CT w/out contrast HISTORY : vertigo COMPARISON : 05/27/2015. TECHNIQUE : Multiple contiguous axial images were obtained from the skull base to the vertex without intravenous contrast. A radiation dose optimization technique was used for this scan. FINDINGS : There is no evidence for acute intracranial hemorrhage, mass effect, or midline shift. There is no extra-axial fluid collection. There are periventricular white matter changes consistent with chronic microvascular ischemic disease. There is normal estrada-white differentiation, without CT evidence of acute ischemia or infarct. The skull base and calvarium are unremarkable. The orbits are unremarkable. The paranasal sinuses are clear. The mastoid air cells are well-aerated. The soft tissues are unremarkable. CT/Brain/Head without Contrast IMPRESSION: No acute intracranial abnormality. Chronic ischemic changes of the brain. Electronically Signed: Jovan Haskins MD at 20:26 EDT Tel , Service support ,
--- NOTE | 2021-05-15 18:33 | EDS_ITS ---
HPI History of Present Illness Chief Complaint: Weakness Informant: patient and spouse/S.O. Narrative Narrative: Couple hours ago, patient states he was sitting at home when he suddenly started feeling dizzy and nauseated and weak all over. He has a history of multiple sclerosis, which has caused him to have near paralysis on the left side which is no different today. He denies having a headache. He has history of paroxysmal atrial fibrillation and is on Eliquis for that. He denies any recent illness, hospital admission, or injury/fall. He basically is in a wheelchair at home because of his left-sided weakness. He and state that he has had urinary infections in the past, and commonly presents with sepsis symptoms when that occurs, he does not get dysuria, hematuria, or other urinary symptoms. Prior to coming here, states she was using a blood pressure cuff to check his blood pressure and at one point it read 60/30, and his pulse alternated between 80 and 40. Patient states he did not feel faint or lightheaded; he felt like there was a sensation of movement and it made him feel nauseated. Denies any earache, tinnitus, recent ear infection. states he has a history of vertigo and sees an software team leader in [place] for it. Did not give him one of his vertigo pills today because she did not think of that is a possibility prior to bringing him here and discussing with me. [facility] Medical History (Updated 05/15/21 @ 21:[address] Tian Lobato MD) Abnormal EKG Atrial septal defect Bladder cancer Hyperlipidemia Hypertension Kidney stones Multiple sclerosis Obstructive sleep apnea Paroxysmal atrial fibrillation Pulmonary embolism Recurrent UTI Syncope due to orthostatic hypotension Home Medications vitamin E (dl, acetate) 400 units PO DAILY 09/14/17 [History Last Taken 01/16/20] meclizine 25 mg tablet 25 mg PO PRN PRN 11/04/17 [History Last Taken 01/09/20] ocrelizumab 30 mg/mL intravenous solution 600 mg IV .COMPLEX 11/04/17 [History Last Taken 10/01/19] tizanidine 4 mg capsule 4 mg PO Q8H PRN 11/04/17 [History Last Taken 07/25/19] cholecalciferol (vitamin D3) 5,000 unit PO DAILY 05/28/18 [History Last Taken 01/16/20] multivitamin with folic acid 1 tab PO DAILY 05/28/18 [History Last Taken 01/15/20] pantoprazole 40 mg PO DAILY 12/01/19 [History Last Taken 02/04/20 07:45] lisdexamfetamine 50 mg PO DAILY 01/16/20 [History Last Taken 01/16/20] tamsulosin 0.4 mg PO DAILY #30 cap.er.24h 01/18/20 [Rx Last Taken Unknown] potassium citrate 15 meq PO BID #60 tablet.er 02/04/20 [Rx Last Taken Unknown] duloxetine 60 mg capsule,delayed release sprinkle 60 mg PO DAILY 07/20/20 [History Last Taken Unknown] lisinopril 40 mg tablet 20 mg PO BREAKFAST tab 07/20/20 [History Last Taken Unknown] albuterol sulfate 2.5 mg INHALATION Q4H PRN #180 vial 01/17/21 [Rx Last Taken Unknown] carvedilol 12.5 mg tablet 12.5 mg PO BID #180 tab 01/18/21 [Rx Last Taken Unknown] simvastatin 20 mg tablet 20 mg PO QHS #90 tab 04/24/21 [Rx Last Taken Unknown] apixaban 5 mg tablet 5 mg PO BID #60 tab 05/11/21 [Rx Last Taken Unknown] Allergy/AdvReac Type Severity Reaction Status Date / Time No Known Allergies Allergy Verified 05/15/21 18:16 Family History Father CAD (coronary artery disease) Hypertension Myocardial infarction Mother Hypertension Sister Multiple sclerosis Surgical History History of vasectomy ureteroscopy Social History Smoking Status: Never smoker ROS ROS ED Constitutional Constitutional ED: Denies chills or fever(s) Eyes Eyes: Reports change in vision bilateral (seeing spots in vision); Denies diplopia or discharge from eye(s) ENT ENT ED: Denies discharge from eye(s), ear pain, rhinorrhea, sore throat or tinnitus Cardiovascular Cardiovascular: Denies chest pain or palpitations Respiratory/Chest Respiratory/Chest: Denies cough or dyspnea Gastrointestinal Gastrointestinal: Denies abdominal pain, diarrhea, nausea or vomiting Genitourinary Genitourinary ED: Denies dysuria or hematuria Musculoskeletal Musculoskeletal: Denies back pain or neck pain Integumentary Denies abscess or rash Neurologic Neurologic: Reports as per HPI, paresthesias LUE and LLE and weakness; Denies headache(s) Psychiatric Psychiatric: Denies anxiety or suicidal thoughts EXAM Physical Exam Const Vital Signs: 05/15/21 18:12 05/15/21 18:16 05/15/21 18:17 Temperature 97.8 F 97.8 F Temperature Source Temporal Temporal Pulse Rate 82 82 80 Respiratory Rate 18 18 18 Respiratory Effort Normal Respiratory Pattern Normal Blood Pressure 98/65 98/65 98/65 Blood Pressure Mean 76 76 76 Pulse Ox 94 94 96 Oxygen Delivery Method Nasal Cannula Nasal Cannula Nasal Cannula Oxygen Flow Rate (L/min) 3 3 3 05/15/21 20:00 Temperature 98.6 F Temperature Source Oral Pulse Rate 46 L Respiratory Rate 19 H Respiratory Effort Respiratory Pattern Blood Pressure 105/65 Blood Pressure Mean 78 Pulse Ox 96 Oxygen Delivery Method Nasal Cannula Oxygen Flow Rate (L/min) 3 Positive well nourished and well developed General Appearance ED: well developed and NAD HEENT Reports TM's clear and moist mucous membranes normocephalic and atraumatic Tympanic Membrane ED: Yes TM's clear Eyes PERRL and EOMs intact bilaterally Neck full ROM and supple Resp normal respiratory effort and clear to auscultation bilaterally Cardio regular rate, regular rhythm and no murmurs GI non-tender and non-distended Auscultation: normoactive bowel sounds Palpation: soft Back/Spine no CVA tenderness General Back: other FROM Extremity normal to inspection General Extremety ED: Negative for edema, pulses abnormal or tenderness General Extremity: Negative for edema or pulses abnormal Neuro oriented x3 and CN's II-XII intact bilaterally Neuro Narrative: Positive Huong-Hallpike to the left with horizontal nystagmus no vertical or rotatory. Paralyzed left upper and lower extremities with also decreased sensation. Able to move right side without difficulty. No facial droop. Sensorium / Orientation: awake and alert Skin no rashes or lesions noted and no wounds MDM MDM MDM Narrative Medical decision making narrative: With the patient's symptoms and history and a positive Mazama-Hallpike in the left, creating symptoms that were resolved prior to me performing the maneuver, he likely has peripheral vertigo as opposed to central. Given his anticoagulated state, CT head was obtained, it is negative for hemorrhage or anything else acute. His blood pressure is 98/65, adequate. He is keenly alert and appears well relatively. Given the 's history, septic work-up was obtained along with a urine. While I was initially evaluating the patient, he had paroxysmal ventricular bigeminy, he was asymptomatic with this and his blood pressure did not drop, however it could e xplain his pulse measurement at home. However, his white blood count returned at almost 23 and urine appears to be infected. Therefore his transient hypotension may have been early septic shock. According to the he has a history of crashing fast with sepsis and urinary infections. He looks good clinically now, plan is for admission to med-surg after discussing w/ hospitalist. Lab Data Attestation: I reviewed the patient's lab results. Labs: Laboratory Results - last 24 hr 05/15/21 05/15/21 05/15/21 18:40 18:40 19:00 WBC 22.8 H RBC 6.04 Hgb 17.6 H Hct 54.2 H MCV 89.7 MCH 29.1 MCHC 32.5 RDW Std Deviation 44.3 H RDW Coeff of Bravo 13.4 Plt Count 266 MPV 10.2 Immature Gran % (Auto) 0.600 Neut % (Auto) 83.5 H Lymph % (Auto) 6.8 L Conway % (Auto) 7.8 Eos % (Auto) 0.9 Baso % (Auto) 0.4 Absolute Neuts (auto) 19.1 H Absolute Lymphs (auto) 1.55 Nucleated RBC % 0 Differential Comment SEE COMMENT Diff Path Review May foll Platelet Estimate ADEQUATE RBC Morphology N CHROM Anisocytosis RARE Macrocytosis RARE PT INR APTT Sodium Cancelled Potassium Cancelled Chloride Cancelled Carbon Dioxide Cancelled Anion Gap Cancelled BUN Cancelled Creatinine Cancelled Estim Creat Clear Calc Cancelled Est GFR (MDRD) Af Amer Cancelled Est GFR (MDRD) Non-Af Cancelled BUN/Creatinine Ratio Cancelled Glucose Cancelled Lactic Acid Calcium Cancelled Troponin I High Sens Urine Color Yellow Urine Clarity Sl. Cloudy Urine pH 7.0 Ur Specific [place] 1.010 Urine Protein 500 H Urine Glucose (UA) Normal Urine Ketones Negative Urine Occult Blood 25 H Urine Nitrite Positive H Urine Bilirubin Negative Urine Urobilinogen 4 H Ur Leukocyte Esterase 500 H Urine RBC 0-5 SEEN Urine WBC 10-25 SEEN Ur Squamous Epith Cells 0 SEEN Urine Bacteria RARE Urine Mucus 0 SEEN 05/15/21 05/15/21 05/15/21 19:20 19:55 19:55 WBC RBC Hgb Hct MCV MCH MCHC RDW Std Deviation RDW Coeff of Bravo Plt Count MPV Immature Gran % (Auto) Neut % (Auto) Lymph % (Auto) Conway % (Auto) Eos % (Auto) Baso % (Auto) Absolute Neuts (auto) Absolute Lymphs (auto) Nucleated RBC % Differential Comment Diff Path Review Platelet Estimate RBC Morphology Anisocytosis Macrocytosis PT Cancelled INR Cancelled APTT Cancelled Sodium Cancelled Potassium Cancelled Chloride Cancelled Carbon Dioxide Cancelled Anion Gap Cancelled BUN Cancelled Creatinine Cancelled Estim Creat Clear Calc Cancelled Est GFR (MDRD) Af Amer Cancelled Est GFR (MDRD) Non-Af Cancelled BUN/Creatinine Ratio Cancelled Glucose Cancelled Lactic Acid Cancelled Calcium Cancelled Troponin I High Sens Urine Color Urine Clarity Urine pH Ur Specific [place] Urine Protein Urine Glucose (UA) Urine Ketones Urine Occult Blood Urine Nitrite Urine Bilirubin Urine Urobilinogen Ur Leukocyte Esterase Urine RBC Urine WBC Ur Squamous Epith Cells Urine Bacteria Urine Mucus 05/15/21 05/15/21 05/15/21 20:32 20:32 20:32 WBC RBC Hgb Hct MCV MCH MCHC RDW Std Deviation RDW Coeff of Bravo Plt Count MPV Immature Gran % (Auto) Neut % (Auto) Lymph % (Auto) Conway % (Auto) Eos % (Auto) Baso % (Auto) Absolute Neuts (auto) Absolute Lymphs (auto) Nucleated RBC % Differential Comment Diff Path Review Platelet Estimate RBC Morphology Anisocytosis Macrocytosis PT 15.5 H INR 1.3 APTT 27.2 Sodium 143 Potassium 3.8 Chloride 107 Carbon Dioxide 31.0 Anion Gap 5 BUN 23 H Creatinine 1.45 H Estim Creat Clear Calc 67.41 Est GFR (MDRD) Af Amer 63 Est GFR (MDRD) Non-Af 52 L BUN/Creatinine Ratio 15.9 Glucose 110 H Lactic Acid Calcium 9.2 Troponin I High Sens 21.3 Urine Color Urine Clarity Urine pH Ur Specific [place] Urine Protein Urine Glucose (UA) Urine Ketones Urine Occult Blood Urine Nitrite Urine Bilirubin Urine Urobilinogen Ur Leukocyte Esterase Urine RBC Urine WBC Ur Squamous Epith Cells Urine Bacteria Urine Mucus 05/15/21 20:35 WBC RBC Hgb Hct MCV MCH MCHC RDW Std Deviation RDW Coeff of Bravo Plt Count MPV Immature Gran % (Auto) Neut % (Auto) Lymph % (Auto) Conway % (Auto) Eos % (Auto) Baso % (Auto) Absolute Neuts (auto) Absolute Lymphs (auto) Nucleated RBC % Differential Comment Diff Path Review Platelet Estimate RBC Morphology Anisocytosis Macrocytosis PT INR APTT Sodium Potassium Chloride Carbon Dioxide Anion Gap BUN Creatinine Estim Creat Clear Calc Est GFR (MDRD) Af Amer Est GFR (MDRD) Non-Af BUN/Creatinine Ratio Glucose Lactic Acid 1.2 Calcium Troponin I High Sens Urine Color Urine Clarity Urine pH Ur Specific [place] Urine Protein Urine Glucose (UA) Urine Ketones Urine Occult Blood Urine Nitrite Urine Bilirubin Urine Urobilinogen Ur Leukocyte Esterase Urine RBC Urine WBC Ur Squamous Epith Cells Urine Bacteria Urine Mucus Radiography Diagnostic Testing: Radiology Impression Brain CT 05/15/21 18:31 IMPRESSION: No acute intracranial abnormality. Chronic ischemic changes of the brain. Electronically Signed: Jovan Haskins MD at 20:26 EDT Tel , Service support , Chest X-Ray 05/15/21 20:10 IMPRESSION: 1. Limited inspiratory effort with bibasilar atelectasis. There is no major interval change from prior exam. Electronically Signed: Federico Roy DO at 20:53 EDT Tel [phone], Service support , EKG Initial EKG: Attestation: I personally reviewed and interpreted this EKG as follows: Interpretation: Sinus Rhythm and No Acute Injury Pattern Comments: normal EKG Discharge Plan Dx/Rx/DC Orders Clinical Impression: Sepsis due to urinary tract infection, Urinary tract infection, Multiple sclerosis, LUPE (acute kidney injury), Transient hypotension Disposition Disposition: [facility]
[2021-05-15 18:53] LABS: Absolute Lymphocyte Count 1.55 X10^3/uL (0.83-4.51); Absolute Neutrophil Count 19.1 X10^3/uL (2.0-7.7); Basophil# 0.08 X10^3/uL; Basophil% 0.4 % (0-1); Eosinophil# 0.21 X10^3/uL; Eosinophils% 0.9 % (0-5); Hematocrit 54.2 % (40-54); Hemoglobin 17.6 g/dL (13.0-16.5); Lymphocyte # 1.55 X10^3/ul (0.83-4.51); Lymphocyte % 6.8 % (19-41); Mean Corp Hgb Conc 32.5 g/dL (32-36); Mean Corpuscular Hgb 29.1 pg (27.0-32.0); Mean Corpuscular Volume 89.7 fL (80-94); Mean Platelet Vol. 10.2 fl (6.2-12.0); Monocyte# 1.79 X10^3/uL; Monocyte% 7.8 % (0-10); NRBC Flagged by Analyzer 0 % (0-5); Neutrophil # 19.07 X10^3/uL (2.7-7.7); Neutrophil % 83.5 % (47-70); POSITIVE DIFFERENTIAL YES; Platelet Count 266 K/mm3 (150-450); RBC Distribution Width CV 13.4 % (11.6-14.6); RBC Distribution Width SD 44.3 fl (35.1-43.9); Red Blood Count 6.04 M/mm3 (4.6-6.2); White Blood Count 22.8 K/mm3 (4.4-11.0)
[2021-05-15] MEDS: Metoclopramide 10 MG/2 ML Vial 2.5 MG IV (18:53)
[2021-05-15] MEDS: Meclizine HCl 25 MG Tablet PO (18:56)
[2021-05-15 18:57] LABS: Differential Indicated SCAN CRITERIA MET
[2021-05-15 19:09] LABS: Mucous, Urine 0 SEEN /hpf (<or=2+); Squamous Epithelial Cells - UA 0 SEEN /hpf (0-5)
[2021-05-15 19:18] LABS: Color, Urine Yellow (Yellow); Glucose, Dipstick Normal (Normal); Ketone-Dipstick Negative (Negative); Leukocyte Esterase-Dipstick 500 /ul (Negative); Nitrite-Dipstick Positive (Negative); Occult Blood-Urine 25 /ul (Negative); Protein-Dipstick 500 mg/dl (Negative); Urine Bilirubin Dipstick Negative (Negative); Urine Clarity Sl. Cloudy (Clear); Urine Urobilinogen 4 mg/dl (Normal)
[2021-05-15 19:21] LABS: Anisocytosis RARE; Macrocytosis RARE; Platelet Estimate ADEQUATE (ADEQ); Red Cell Morphology N CHROM NORMAL (NORM C&C)
[2021-05-15 20:01] LABS: Bacteria RARE /hpf (None Seen); Red Blood Cells-Urine 0-5 SEEN /hpf (0-5); White Blood Cells 10-25 SEEN /hpf (0-5)
--- NOTE | 2021-05-15 20:10 | RAD_ITS ---
STUDY: X-RAY CHEST REASON FOR EXAM: Male, 65 years old. Weakness. TECHNIQUE: Single AP portable view of the chest. COMPARISON: 01/16/2020. FINDINGS: Limited inspiratory effort unchanged from prior study. Again seen is bibasilar atelectasis most marked on the left. There is no demonstrated pleural abnormality. Normal size heart. Normal mediastinum and romi. Normal visualized pulmonary arteries. Normal visualized aortic arch and descending thoracic aorta. The thoracic spine is obscured by the mediastinum. Normal visualized ribs, clavicles, and shoulders. Again seen is gaseous distention of the colon beneath the hemidiaphragm. RAD/Chest 1 View (Portable) IMPRESSION: 1. Limited inspiratory effort with bibasilar atelectasis. There is no major interval change from prior exam. Electronically Signed: Federico Roy DO at 20:53 EDT Tel [phone], Service support ,
[2021-05-15] MEDS: Ceftriaxone 1 GM/50 ML BAG IV (20:29)
[2021-05-15 20:50] LABS: Anion Gap 5 (5-15); BUN 23 mg/dL (7-18); BUN/Creat Ratio 15.9 RATIO (10-20); Calcium,Total 9.2 mg/dL (8.5-10.1); Chloride 107 mmol/L (98-107); Creatinine, Serum 1.45 mg/dL (0.70-1.30); EST Glomerular Filtration Rate 52 mL/min (>60); Est Glom Filt Rate - Afr Amer 63 mL/min (>60); Estimated Creatinine Clearance 67.41 ml/min; Glucose 110 mg/dL (74-106); Potassium 3.8 mmol/L (3.5-5.1); Sodium Level 143 mmol/L (136-145)
[2021-05-15 20:51] LABS: International Normalized Ratio 1.3; Prothrombin Time (Protime)PT. 15.5 SECONDS (11.7-14.9)
[2021-05-15 20:52] LABS: Partial Thromboplast Time 27.2 Seconds (24.1-36.2)
[2021-05-15 21:00] LABS: Troponin-I HS 21.3 pg/mL (3.0-78.5)
[2021-05-15 21:17] LABS: Lactic Acid 1.2 mmol/L (0.4-1.9)
--- NOTE | 2021-05-15 22:38 | HP.PCM.HOS_ITS ---
HPI - General General Date of Admission: 05/15/21 Date of Service: 05/15/21 Chief Complaint: weakness. hypotension HPI Narrative NERY MIDDLETON, is a 65 M who presents with weakness today. Blood pressure was checked and his blood pressure was 60/40. Patient has a history of urinary tract infections and patient gets worse very quickly with those and that was a concern given the fact the patient has a neurogenic bladder and cannot sense when he has an actual infection. This patient was sent to the emergency room and his blood pressure was normal here. In the emergency room, patient had a white count of 22.8, hemoglobin of 17.6 (which was up from his baseline from January 18, 2020), and a creatinine of 1.45, which is up from his baseline of 0.96 from January 18, 2020. Patient did have abnormal urinalysis with positive nitrates, 500 leuk esterase but only 10-25 white blood cells. Patient did receive ceftriaxone in the emergency room. [facility] Medical History (Updated 05/15/21 @ 22:[address] Shubham Coppola, ) Abnormal EKG Atrial septal defect Bladder cancer Hyperlipidemia Hypertension Kidney stones Multiple sclerosis Obstructive sleep apnea Paroxysmal atrial fibrillation Pulmonary embolism Recurrent UTI Syncope due to orthostatic hypotension Home Medications vitamin E (dl, acetate) 400 units PO DAILY 09/14/17 [History Last Taken 01/16/20] meclizine 25 mg tablet 25 mg PO PRN PRN 11/04/17 [History Last Taken 01/09/20] ocrelizumab 30 mg/mL intravenous solution 600 mg IV .COMPLEX 11/04/17 [History Last Taken 10/01/19] tizanidine 4 mg capsule 4 mg PO Q8H PRN 11/04/17 [History Last Taken 07/25/19] cholecalciferol (vitamin D3) 5,000 unit PO DAILY 05/28/18 [History Last Taken 01/16/20] multivitamin with folic acid 1 tab PO DAILY 05/28/18 [History Last Taken 01/15/20] pantoprazole 40 mg PO DAILY 12/01/19 [History Last Taken 02/04/20 07:45] lisdexamfetamine 50 mg PO DAILY 01/16/20 [History Last Taken 01/16/20] tamsulosin 0.4 mg PO DAILY #30 cap.er.24h 01/18/20 [Rx Last Taken Unknown] potassium citrate 15 meq PO BID #60 tablet.er 02/04/20 [Rx Last Taken Unknown] duloxetine 60 mg capsule,delayed release sprinkle 60 mg PO DAILY 07/20/20 [History Last Taken Unknown] lisinopril 40 mg tablet 20 mg PO BREAKFAST tab 07/20/20 [History Last Taken Unknown] albuterol sulfate 2.5 mg INHALATION Q4H PRN #180 vial 01/17/21 [Rx Last Taken Unknown] carvedilol 12.5 mg tablet 12.5 mg PO BID #180 tab 01/18/21 [Rx Last Taken Unknown] simvastatin 20 mg tablet 20 mg PO QHS #90 tab 04/24/21 [Rx Last Taken Unknown] apixaban 5 mg tablet 5 mg PO BID #60 tab 05/11/21 [Rx Last Taken Unknown] Allergy/AdvReac Type Severity Reaction Status Date / Time No Known Allergies Allergy Verified 05/15/21 18:16 Family History Father CAD (coronary artery disease) Hypertension Myocardial infarction Mother Hypertension Sister Multiple sclerosis Surgical History History of vasectomy ureteroscopy Social History Smoking Status: Never smoker ROS ROS Narrative Patient has left-sided weakness due to his MS. He no longer pivots but has to shuffle with transfers. Patient is wheelchair dependent. All review of systems were negative except as mentioned above in the history of present illness and the other review of systems. Vital Signs Vital Signs Vital Signs: 05/15/21 18:12 05/15/21 18:16 05/15/21 18:17 Temperature 36.6 C 36.6 C Temperature Source Temporal Temporal Pulse Rate 82 82 80 Respiratory Rate 18 18 18 Respiratory Effort Normal Respiratory Pattern Normal Blood Pressure 98/65 98/65 98/65 Blood Pressure Mean 76 76 76 Pulse Ox 94 94 96 Oxygen Delivery Method Nasal Cannula Nasal Cannula Nasal Cannula Oxygen Flow Rate (L/min) 3 3 3 05/15/21 20:00 05/15/21 21:00 05/15/21 21:51 Temperature 37.0 C 36.9 C 36.9 C Temperature Source Oral Oral Oral Pulse Rate 56 L 63 69 Respiratory Rate 19 H 18 17 Respiratory Effort Respiratory Pattern Blood Pressure 105/65 101/65 112/71 Blood Pressure Mean 78 77 84 Pulse Ox 96 97 96 Oxygen Delivery Method Nasal Cannula Nasal Cannula Nasal Cannula Oxygen Flow Rate (L/min) 3 3 3 05/15/21 22:00 Temperature 36.8 C Temperature Source Oral Pulse Rate 71 Respiratory Rate 16 Respiratory Effort Respiratory Pattern Blood Pressure 109/69 Blood Pressure Mean 82 Pulse Ox 96 Oxygen Delivery Method Nasal Cannula Oxygen Flow Rate (L/min) 3 Weight Weight: 126.6 kg Body Mass Index (BMI) 32.2 Physical Exam Const alert and no apparent distress General Appearance: cooperative HEENT normocephalic and moist oral mucous membranes Eyes Eyes Narrative: No scleral icterus Resp normal respiratory effort, no use of accessory muscles and clear to auscultation bilaterally Cardio regular rate, regular rhythm, S1 normal heart sound and S2 normal heart sound GI normal to inspection, nondistended, normoactive bowel sounds, non-tender and non-distended Extremity normal to inspection and no clubbing, cyanosis or edema Skin Skin Narrative: Slight excoriations on anterior shins without any evidence of cellulitis Neuro Neuro Narrative: No clonus on the right and a 2 beat clonus on the left Sensorium / Orientation: awake and alert Psych affect normal Results Lab / Micro Data Attestation: I reviewed the patient's lab results. Result Diagrams: 05/15/21 18:40 05/15/21 20:32 Labs: Laboratory Results - last 24 hr 05/15/21 05/15/21 05/15/21 18:40 18:40 19:00 WBC 22.8 H RBC 6.04 Hgb 17.6 H Hct 54.2 H MCV 89.7 MCH 29.1 MCHC 32.5 RDW Std Deviation 44.3 H RDW Coeff of Bravo 13.4 Plt Count 266 MPV 10.2 Immature Gran % (Auto) 0.600 Neut % (Auto) 83.5 H Lymph % (Auto) 6.8 L [place] % (Auto) 7.8 Eos % (Auto) 0.9 Baso % (Auto) 0.4 Absolute Neuts (auto) 19.1 H Absolute Lymphs (auto) 1.55 Nucleated RBC % 0 Differential Comment SEE COMMENT Diff Path Review May foll Platelet Estimate ADEQUATE RBC Morphology N CHROM Anisocytosis RARE Macrocytosis RARE PT INR APTT Sodium Cancelled Potassium Cancelled Chloride Cancelled Carbon Dioxide Cancelled Anion Gap Cancelled BUN Cancelled Creatinine Cancelled Estim Creat Clear Calc Cancelled Est GFR (MDRD) Af Amer Cancelled Est GFR (MDRD) Non-Af Cancelled BUN/Creatinine Ratio Cancelled Glucose Cancelled Lactic Acid Calcium Cancelled Troponin I High Sens Urine Color Yellow Urine Clarity Sl. Cloudy Urine pH 7.0 Ur Specific [place] 1.010 Urine Protein 500 H Urine Glucose (UA) Normal Urine Ketones Negative Urine Occult Blood 25 H Urine Nitrite Positive H Urine Bilirubin Negative Urine Urobilinogen 4 H Ur Leukocyte Esterase 500 H Urine RBC 0-5 SEEN Urine WBC 10-25 SEEN Ur Squamous Epith Cells 0 SEEN Urine Bacteria RARE Urine Mucus 0 SEEN 05/15/21 05/15/21 05/15/21 19:20 19:55 19:55 WBC RBC Hgb Hct MCV MCH MCHC RDW Std Deviation RDW Coeff of Bravo Plt Count MPV Immature Gran % (Auto) Neut % (Auto) Lymph % (Auto) [place] % (Auto) Eos % (Auto) Baso % (Auto) Absolute Neuts (auto) Absolute Lymphs (auto) Nucleated RBC % Differential Comment Diff Path Review Platelet Estimate RBC Morphology Anisocytosis Macrocytosis PT Cancelled INR Cancelled APTT Cancelled Sodium Cancelled Potassium Cancelled Chloride Cancelled Carbon Dioxide Cancelled Anion Gap Cancelled BUN Cancelled Creatinine Cancelled Estim Creat Clear Calc Cancelled Est GFR (MDRD) Af Amer Cancelled Est GFR (MDRD) Non-Af Cancelled BUN/Creatinine Ratio Cancelled Glucose Cancelled Lactic Acid Cancelled Calcium Cancelled Troponin I High Sens Urine Color Urine Clarity Urine pH Ur Specific [place] Urine Protein Urine Glucose (UA) Urine Ketones Urine Occult Blood Urine Nitrite Urine Bilirubin Urine Urobilinogen Ur Leukocyte Esterase Urine RBC Urine WBC Ur Squamous Epith Cells Urine Bacteria Urine Mucus 05/15/21 05/15/21 05/15/21 20:32 20:32 20:32 WBC RBC Hgb Hct MCV MCH MCHC RDW Std Deviation RDW Coeff of Bravo Plt Count MPV Immature Gran % (Auto) Neut % (Auto) Lymph % (Auto) [place] % (Auto) Eos % (Auto) Baso % (Auto) Absolute Neuts (auto) Absolute Lymphs (auto) Nucleated RBC % Differential Comment Diff Path Review Platelet Estimate RBC Morphology Anisocytosis Macrocytosis PT 15.5 H INR 1.3 APTT 27.2 Sodium 143 Potassium 3.8 Chloride 107 Carbon Dioxide 31.0 Anion Gap 5 BUN 23 H Creatinine 1.45 H Estim Creat Clear Calc 67.41 Est GFR (MDRD) Af Amer 63 Est GFR (MDRD) Non-Af 52 L BUN/Creatinine Ratio 15.9 Glucose 110 H Lactic Acid Calcium 9.2 Troponin I High Sens 21.3 Urine Color Urine Clarity Urine pH Ur Specific [place] Urine Protein Urine Glucose (UA) Urine Ketones Urine Occult Blood Urine Nitrite Urine Bilirubin Urine Urobilinogen Ur Leukocyte Esterase Urine RBC Urine WBC Ur Squamous Epith Cells Urine Bacteria Urine Mucus 05/15/21 20:35 WBC RBC Hgb Hct MCV MCH MCHC RDW Std Deviation RDW Coeff of Bravo Plt Count MPV Immature Gran % (Auto) Neut % (Auto) Lymph % (Auto) [place] % (Auto) Eos % (Auto) Baso % (Auto) Absolute Neuts (auto) Absolute Lymphs (auto) Nucleated RBC % Differential Comment Diff Path Review Platelet Estimate RBC Morphology Anisocytosis Macrocytosis PT INR APTT Sodium Potassium Chloride Carbon Dioxide Anion Gap BUN Creatinine Estim Creat Clear Calc Est GFR (MDRD) Af Amer Est GFR (MDRD) Non-Af BUN/Creatinine Ratio Glucose Lactic Acid 1.2 Calcium Troponin I High Sens Urine Color Urine Clarity Urine pH Ur Specific [place] Urine Protein Urine Glucose (UA) Urine Ketones Urine Occult Blood Urine Nitrite Urine Bilirubin Urine Urobilinogen Ur Leukocyte Esterase Urine RBC Urine WBC Ur Squamous Epith Cells Urine Bacteria Urine Mucus Radiology Impression Brain CT 05/15/21 18:31 IMPRESSION: No acute intracranial abnormality. Chronic ischemic changes of the brain. Electronically Signed: Jovan Haskins MD at 20:26 EDT Tel , Service support , Chest X-Ray 05/15/21 20:10 IMPRESSION: 1. Limited inspiratory effort with bibasilar atelectasis. There is no major interval change from prior exam. Electronically Signed: Federico Roy DO at 20:53 EDT Tel [phone], Service support , Assessment & Plan Assessment/Plan (1) Dehydration: PLAN: 1. Hypotension * Transient home in since resolved and not seen here in the hospital * Patient's hemoglobin and creatinine are up which would indicate to me the patient is dehydrated * Will give the patient 2 more liters of IV fluids 2. Abnormal urinalysis * Only 10-25 white blood cells on his urinalysis * Patient did receive ceftriaxone but I will hold off any additional antibiotics at this time unless his condition changes. * Understandably patient does have a history of urinary tract infections and rapid decompensation according to his * The patient is hemodynamically stable and I do not feel the patient is septic. 3. Multiple sclerosis * Complicates care and recovery * Discussed with the patient and his and will have PT OT evaluate him to see if he is at his baseline so that he can maintain his shuffling pivots for when he is ready for discharge. 4. Paroxysmal A. fib * Currently sinus rhythm * Continue with apixaban and carvedilol 5. VTE prophylaxis * Not indicated as patient is observation status and already on anticoagulation 6. Health maintenance: Patient has been vaccinated against COVID-19. Charges/Coding Visit Charges OBSV E&M: 12372 Initial observation care L3
[2021-05-15] MEDS: 0.9% Normal Saline 1,000 ML 200 ML IV (22:57)
[2021-05-15] MEDS: 0.9% Saline Lock 10 ML Syringe IV (22:58)
[2021-05-15] MEDS: Atorvastatin Calcium 10 MG Tablet PO (23:17)
[2021-05-15] MEDS: APIXABAN 5 MG TABLET PO (23:17)
[2021-05-16] VITALS (10 sets, daily range): BP systolic 81–103; BP diastolic 39–57; PULSE 77–93; RESP 16–18; TEMP 36.5–36.9; O2SAT 93–96
[2021-05-16] MEDS: 0.9% Normal Saline 1,000 ML 200 ML IV (04:25)
[2021-05-16 06:57] LABS: Absolute Lymphocyte Count 1.41 X10^3/uL (0.83-4.51); Absolute Neutrophil Count 15.4 X10^3/uL (2.0-7.7); Basophil# 0.06 X10^3/uL; Basophil% 0.3 % (0-1); Eosinophil# 0.03 X10^3/uL; Eosinophils% 0.2 % (0-5); Hematocrit 52.1 % (40-54); Hemoglobin 16.2 g/dL (13.0-16.5); Lymphocyte # 1.41 X10^3/ul (0.83-4.51); Lymphocyte % 7.5 % (19-41); Mean Corp Hgb Conc 31.1 g/dL (32-36); Mean Corpuscular Hgb 28.6 pg (27.0-32.0); Monocyte# 1.86 X10^3/uL; Monocyte% 9.8 % (0-10); NRBC Flagged by Analyzer 0 % (0-5); Neutrophil # 15.44 X10^3/uL (2.7-7.7); Neutrophil % 81.6 % (47-70); POSITIVE DIFFERENTIAL YES; Platelet Count 235 K/mm3 (150-450); RBC Distribution Width CV 13.7 % (11.6-14.6); RBC Distribution Width SD 46.9 fl (35.1-43.9); Red Blood Count 5.66 M/mm3 (4.6-6.2); White Blood Count 18.9 K/mm3 (4.4-11.0)
[2021-05-16 06:58] LABS: Differential Indicated SCAN CRITERIA MET
[2021-05-16 07:16] LABS: Differential Comment SCANNED
[2021-05-16 07:34] LABS: Anion Gap 5 (5-15); BUN 29 mg/dL (7-18); BUN/Creat Ratio 19.1 RATIO (10-20); Chloride 110 mmol/L (98-107); Creatinine, Serum 1.52 mg/dL (0.70-1.30); EST Glomerular Filtration Rate 49 mL/min (>60); Est Glom Filt Rate - Afr Amer 60 mL/min (>60); Estimated Creatinine Clearance 64.31 ml/min; Glucose 122 mg/dL (74-106); Potassium 3.6 mmol/L (3.5-5.1); Sodium Level 143 mmol/L (136-145)
--- NOTE | 2021-05-16 09:10 | PCM.PN.HOSP ---
Subjective Subjective Patient was seen and examined. He has had more than 5 bowel movements today. Stool for C. difficile enteric findings seen. Blood pressures have been running low. Denied any fever or chills. No chest pain or dizziness or shortness of breath. Patient denied any recent medication changes or use of antibiotics. Objective Data Objective Data Vital Signs: Vital Signs Temp Pulse Resp BP Pulse Ox 98.3 F 86 18 81/39 L 93 05/16/21 07:58 05/16/21 07:58 05/16/21 07:58 05/16/21 07:58 05/16/21 07:58 Oxygen Flow Rate (L/min) 3 Oxygen Delivery Method Nasal Cannula Weight: 121.8 kg Body Mass Index (BMI) 31.0 Intake & Output: Intake and Output for Last 24 Hours 05/14/21 05/15/21 05/16/21 23:59 23:59 23:59 Intake Total 50 / 50 2323.33 / 2323.33 Output Total 50 / 50 Balance 50 / 50 2273.33 / 2273.33 Lab / Micro Data Result Diagrams: 05/17/21 05:45 05/17/21 05:45 Labs: Laboratory Results - last 24 hr 05/15/21 05/15/21 05/15/21 18:40 18:40 19:00 WBC 22.8 H RBC 6.04 Hgb 17.6 H Hct 54.2 H MCV 89.7 MCH 29.1 MCHC 32.5 RDW Std Deviation 44.3 H RDW Coeff of Bravo 13.4 Plt Count 266 MPV 10.2 Immature Gran % (Auto) 0.600 Neut % (Auto) 83.5 H Lymph % (Auto) 6.8 L [place] % (Auto) 7.8 Eos % (Auto) 0.9 Baso % (Auto) 0.4 Absolute Neuts (auto) 19.1 H Absolute Lymphs (auto) 1.55 Nucleated RBC % 0 Differential Comment SEE COMMENT Diff Path Review May foll Platelet Estimate ADEQUATE RBC Morphology N CHROM Anisocytosis RARE Macrocytosis RARE PT INR APTT Sodium Cancelled Potassium Cancelled Chloride Cancelled Carbon Dioxide Cancelled Anion Gap Cancelled BUN Cancelled Creatinine Cancelled Estim Creat Clear Calc Cancelled Est GFR (MDRD) Af Amer Cancelled Est GFR (MDRD) Non-Af Cancelled BUN/Creatinine Ratio Cancelled Glucose Cancelled Lactic Acid Calcium Cancelled Troponin I High Sens Urine Color Yellow Urine Clarity Sl. Cloudy Urine pH 7.0 Ur Specific [place] 1.010 Urine Protein 500 H Urine Glucose (UA) Normal Urine Ketones Negative Urine Occult Blood 25 H Urine Nitrite Positive H Urine Bilirubin Negative Urine Urobilinogen 4 H Ur Leukocyte Esterase 500 H Urine RBC 0-5 SEEN Urine WBC 10-25 SEEN Ur Squamous Epith Cells 0 SEEN Urine Bacteria RARE Urine Mucus 0 SEEN 05/15/21 05/15/21 05/15/21 19:20 19:55 19:55 WBC RBC Hgb Hct MCV MCH MCHC RDW Std Deviation RDW Coeff of Bravo Plt Count MPV Immature Gran % (Auto) Neut % (Auto) Lymph % (Auto) [place] % (Auto) Eos % (Auto) Baso % (Auto) Absolute Neuts (auto) Absolute Lymphs (auto) Nucleated RBC % Differential Comment Diff Path Review Platelet Estimate RBC Morphology Anisocytosis Macrocytosis PT Cancelled INR Cancelled APTT Cancelled Sodium Cancelled Potassium Cancelled Chloride Cancelled Carbon Dioxide Cancelled Anion Gap Cancelled BUN Cancelled Creatinine Cancelled Estim Creat Clear Calc Cancelled Est GFR (MDRD) Af Amer Cancelled Est GFR (MDRD) Non-Af Cancelled BUN/Creatinine Ratio Cancelled Glucose Cancelled Lactic Acid Cancelled Calcium Cancelled Troponin I High Sens Urine Color Urine Clarity Urine pH Ur Specific [place] Urine Protein Urine Glucose (UA) Urine Ketones Urine Occult Blood Urine Nitrite Urine Bilirubin Urine Urobilinogen Ur Leukocyte Esterase Urine RBC Urine WBC Ur Squamous Epith Cells Urine Bacteria Urine Mucus 05/15/21 05/15/21 05/15/21 20:32 20:32 20:32 WBC RBC Hgb Hct MCV MCH MCHC RDW Std Deviation RDW Coeff of Bravo Plt Count MPV Immature Gran % (Auto) Neut % (Auto) Lymph % (Auto) [place] % (Auto) Eos % (Auto) Baso % (Auto) Absolute Neuts (auto) Absolute Lymphs (auto) Nucleated RBC % Differential Comment Diff Path Review Platelet Estimate RBC Morphology Anisocytosis Macrocytosis PT 15.5 H INR 1.3 APTT 27.2 Sodium 143 Potassium 3.8 Chloride 107 Carbon Dioxide 31.0 Anion Gap 5 BUN 23 H Creatinine 1.45 H Estim Creat Clear Calc 67.41 Est GFR (MDRD) Af Amer 63 Est GFR (MDRD) Non-Af 52 L BUN/Creatinine Ratio 15.9 Glucose 110 H Lactic Acid Calcium 9.2 Troponin I High Sens 21.3 Urine Color Urine Clarity Urine pH Ur Specific [place] Urine Protein Urine Glucose (UA) Urine Ketones Urine Occult Blood Urine Nitrite Urine Bilirubin Urine Urobilinogen Ur Leukocyte Esterase Urine RBC Urine WBC Ur Squamous Epith Cells Urine Bacteria Urine Mucus 05/15/21 05/16/21 05/16/21 20:35 06:10 06:10 WBC 18.9 H RBC 5.66 Hgb 16.2 Hct 52.1 MCV 92.0 MCH 28.6 MCHC 31.1 L RDW Std Deviation 46.9 H RDW Coeff of Bravo 13.7 Plt Count 235 MPV 10.0 Immature Gran % (Auto) 0.600 Neut % (Auto) 81.6 H Lymph % (Auto) 7.5 L [place] % (Auto) 9.8 Eos % (Auto) 0.2 Baso % (Auto) 0.3 Absolute Neuts (auto) 15.4 H Absolute Lymphs (auto) 1.41 Nucleated RBC % 0 Differential Comment SCANNED Diff Path Review May foll Platelet Estimate RBC Morphology Anisocytosis Macrocytosis PT INR APTT Sodium 143 Potassium 3.6 Chloride 110 H Carbon Dioxide 28.0 Anion Gap 5 BUN 29 H Creatinine 1.52 H Estim Creat Clear Calc 64.31 Est GFR (MDRD) Af Amer 60 Est GFR (MDRD) Non-Af 49 L BUN/Creatinine Ratio 19.1 Glucose 122 H Lactic Acid 1.2 Calcium 8.0 L Troponin I High Sens Urine Color Urine Clarity Urine pH Ur Specific [place] Urine Protein Urine Glucose (UA) Urine Ketones Urine Occult Blood Urine Nitrite Urine Bilirubin Urine Urobilinogen Ur Leukocyte Esterase Urine RBC Urine WBC Ur Squamous Epith Cells Urine Bacteria Urine Mucus Radiography Diagnostic Testing: Radiology Impression Brain CT 05/15/21 18:31 IMPRESSION: No acute intracranial abnormality. Chronic ischemic changes of the brain. Electronically Signed: Jovan Haskins MD at 20:26 EDT Tel , Service support , Chest X-Ray 05/15/21 20:10 IMPRESSION: 1. Limited inspiratory effort with bibasilar atelectasis. There is no major interval change from prior exam. Electronically Signed: Federico Roy DO at 20:53 EDT Tel [phone], Service support , Physical Exam Narrative General: Alert, Oriented x3, Cooperative, No apparent distress, - - on 3L oxygen HEENT: Atraumatic, PERRLA, EOMI, Normocephalic Oral: Moist Mucosa Neck: Supple Lungs: Clear to auscultation, Normal air movement Cardiovascular: Regular rate, Regular Rhythm, Normal S1, Normal S2, 3/6 holosystolic murmurs Abdomen: Bowel Sounds Present, Soft, Non Tender, No Hepato-splenomegaly, Obese Extremities: No edema Neurological: Left sided flaccid paralysis, Power in right UE 5/5, RLE 3/5 Psych/Mental Status: Normal Affect, Appropriate Assessment & Plan Assessment/Plan (1) Urinary tract infection: (2) LUPE (acute kidney injury): (3) Hypotension: PLAN: 1. Hypotension, probably multifactorial, persistent Patient presents with dehydration/LUPE vs UTI Will hold carvedilol, meclizine Fluid bolus, continue on maintenance IV fluid 2. UTI, likely related to self-catheterization, history of recurrent UTIs home MS Contin history of bladder CA, BPH Urine cultures are pending, will get kidney USG, continue on IV ceftriaxone 3. Rest of her chronic medical conditions including MS, paroxysmal A. fib, history of PE, Meds reviewed; continue Flomax, apixaban Charges/Coding Visit Charges Inpatient E&M: 26122 Subs Hosp L2
[2021-05-16] MEDS: 0.9% Normal Saline 1,000 ML 100 ML IV ×2 (11:54→22:09)
[2021-05-16 12:26] LABS: Pathologist Review Reviewed
[2021-05-16 12:39] LABS: Pathologist Review Reviewed
[2021-05-16] MEDS: Tamsulosin HCl 0.4 MG Capsule PO (12:47)
[2021-05-16] MEDS: Multivitamins,Therapeutic Tablet 1 TABLET PO (12:47)
[2021-05-16] MEDS: Pantoprazole Sodium 40 MG Tablet PO (12:47)
[2021-05-16] MEDS: DULoxetine Hcl 60 MG Capsule PO (12:47)
[2021-05-16] MEDS: Vitamin E 400 UNITS Capsule PO (12:48)
[2021-05-16] MEDS: Cholecalciferol (VIT D3) 25 MCG TABLET (1,000 UNITS) 125 MCG PO (12:48)
[2021-05-16] MEDS: APIXABAN 5 MG TABLET PO ×2 (12:52→22:43)
--- NOTE | 2021-05-16 13:26 | US_ITS ---
STUDY: RENAL ULTRASOUND - COMPLETE REASON FOR EXAM: Male, 65 years old. Recurrent UTIs. History of kidney stones. TECHNIQUE: Ultrasound evaluation of the kidneys was performed with real-time and static estrada-scale imaging. COMPARISON: CT of the pelvis, 09/21/2020. FINDINGS: RIGHT KIDNEY: Normal location of the right kidney, which is enlarged in size. The right kidney measures 13.4 cm. There is a normal cortex of the right kidney. The renal cortex measures 1.8 cm. There is a 1.3 x 1.0 x 0.8 cm simple cyst off the lateral aspect of the right kidney. There are no right renal calculi. There is no right hydronephrosis. DISTAL RIGHT URETER: There is non-visualization of the distal right ureter. There is no demonstrated right ureterovesical junction calculus. There is a visualized right ureteral jet. LEFT KIDNEY: Normal location of the left kidney, which is enlarged in size. The left kidney measures 16.4 cm. There is a normal cortex of the left kidney. The renal cortex measures 2.1 cm. There is no left renal mass or cyst. There is a vague hyperdensity in the lower pole of the right kidney thought to represent a renal calculus. A large calculus is seen in this area from previous exam. There is mild hydronephrosis of the left kidney. DISTAL LEFT URETER: There is non-visualization of the distal left ureter. There is no demonstrated left ureterovesical junction calculus. There is a visualized left ureteral jet. BLADDER: The distended urinary bladder has a volume of 27 ml there is diffuse thickening of the bladder wall. The bladder wall may ages 8 mm. There is no demonstrated mass within the urinary bladder. There are no demonstrated bladder calculi. US/Kidney and Bladder IMPRESSION: 1. Bilaterally enlarged kidneys. 2. Simple right renal cyst. No follow-up required. 3. Left-sided hydronephrosis with renal calculus. This correlates with the CT finding. 4. Diffuse thickening of the urinary bladder wall. Electronically Signed: Federico Roy DO at 19:19 EDT Tel [phone], Service support ,
--- NOTE | 2021-05-16 13:55 | CASEMGMT ---
Addendum entered by Alice Prajapati 05/16/21 15:21: Per Migdalia @ [facility], they are able to accept pt. Discussed [facility] SN services w/pt and again. inquired what SN could assist with and questions answered. Both pt and agreeable to SN. Migdalia @ [facility] made aware SN services will be added to [facility] orders as well. She states if pt is discharged tomorrow (), SOC would be Sat or Sun. Addendum entered by Alice Prajapati 05/16/21 14:14: 1355: BAER form explained re: Observation status for treatment of dehydration. Explained hospitalization will be paid per his insurance policy for Outpatient billing and condition will continue to be evaluated for Inpt necessity. Also let pt know that [facility] sends paper in the billing packet with their phone number if questions arise. Discussed Pharmacy section of BAER form and self administered medication guideline. Pt/ verbalize understanding and do not have further questions. Form signed by , per pt's request, copy made and placed in chart, and original given to pt and . They were also given copy of MCR's Are you a Hospital Inpatient or Outpatient. Original Note: RN CM JANITORIAL TECH CM to room to meet with patient for initial transition planning/care coordination assessment. RN CM introduced self and role at [facility]. Pt voices understanding and consents to assessment at this time. Pt resting in bed in no distress at this time. at bedside. Pt is A/O at this time and answers all questions appropriately. Care providers, pharmacy, and demographics verified/updated at this time. PCP: Dr Mabel Duckworth--he will be retiring soon. states they plan to have pt switch to Dr John Specialists: Dr Bernardo-urology, Dr Roy-neurology in [place], Dr Ni--pulmonology Preferred Pharmacy: [facility] Retail Insurance:[employer] [facility] Prescription Benefit:Yes. LNOK: Mirella Living Arrangements: Lives in one story home w/. Ramp entrance. Pt is disabled. Sponge-baths. Has equipment at home. is able to assist pt w/care needs. does med mgmt. Transportation: Family drives. Pt has WC van DME: States has the following DME: walker, motorized WC, handicap accessible [place] lift, Transfer board, Hospital bed, CPAP. No home O2. They state no need for further DME at this time. HHC/SNF: Hx: TCU and [facility]. states would like for pt to have HHC again and pt is agreeable. They were provided with list of HHC providers including quality and resource use data and consistent with the patient's preferred geographic region, medical needs, and insurance network. The preferred provider is [facility]. states does not feel they need a SN or OT at this time. She would like PT and an aide. Pt agreeable. Call placed to Migdalia @ [facility] and referral made. She was made aware anticipate pt will be ready for discharge tomorrow. Pt/ wish for pt to return home w/HHC and states has no concerns with going home at time of discharge. CM to follow for home oxygen needs and any further discharge planning/needs. Pt/ voice no further concerns/needs at this time. Advised them to ask for CM if any further questions/concerns/needs arise. They voice understanding. PLAN: Home w/HHC: PT and an aide. Awaiting acceptance from [facility]. Follow for any home O2 needs @ discharge. Nakia HARMAN RN CM
[2021-05-16] MEDS: LISDEXAMFETAMINE DIMESYLATE 50 MG CAPSULE PO (15:28)
[2021-05-16] MEDS: Atorvastatin Calcium 10 MG Tablet PO (22:43)
[2021-05-16] MEDS: Ceftriaxone 1 GM/50 ML BAG IV (22:43)
[2021-05-17 02:19] VITALS: BP 98/60; PULSE 76; RESP 16; TEMP 37; O2SAT 94
[2021-05-17 04:09] VITALS: BP 97/56; PULSE 74; RESP 16; TEMP 36.6; O2SAT 98
[2021-05-17 06:05] LABS: Absolute Lymphocyte Count 1.46 X10^3/uL (0.83-4.51); Absolute Neutrophil Count 5.7 X10^3/uL (2.0-7.7); Basophil# 0.03 X10^3/uL; Basophil% 0.4 % (0-1); Eosinophil# 0.22 X10^3/uL; Eosinophils% 2.6 % (0-5); Hematocrit 46.5 % (40-54); Hemoglobin 14.5 g/dL (13.0-16.5); Lymphocyte # 1.46 X10^3/ul (0.83-4.51); Mean Corp Hgb Conc 31.2 g/dL (32-36); Mean Corpuscular Hgb 28.5 pg (27.0-32.0); Mean Corpuscular Volume 91.4 fL (80-94); Mean Platelet Vol. 9.5 fl (6.2-12.0); Monocyte# 1.09 X10^3/uL; Monocyte% 12.7 % (0-10); NRBC Flagged by Analyzer 0 % (0-5); Neutrophil # 5.71 X10^3/uL (2.7-7.7); Neutrophil % 66.6 % (47-70); Platelet Count 183 K/mm3 (150-450); RBC Distribution Width CV 13.4 % (11.6-14.6); RBC Distribution Width SD 45.8 fl (35.1-43.9); Red Blood Count 5.09 M/mm3 (4.6-6.2); White Blood Count 8.6 K/mm3 (4.4-11.0)
[2021-05-17 06:32] LABS: ALB/GLOB Ratio 0.7 RATIO (0.9-2.4); AST(SGOT) 10 U/L (15-37); Alanine Aminotransfer ALT/SGPT 19 U/L (16-61); Albumin, Serum 2.2 g/dL (3.2-5.0); Alkaline Phosphatase 90 U/L (45-117); Anion Gap 2 (5-15); BUN 21 mg/dL (7-18); BUN/Creat Ratio 18.3 RATIO (10-20); Calcium,Total 7.9 mg/dL (8.5-10.1); Chloride 112 mmol/L (98-107); Creatinine, Serum 1.15 mg/dL (0.70-1.30); EST Glomerular Filtration Rate 68 mL/min (>60); Est Glom Filt Rate - Afr Amer 82 mL/min (>60); Globulin 3.1 g/dL (2.2-4.2); Glucose 116 mg/dL (74-106); Potassium 3.5 mmol/L (3.5-5.1); Protein, Total 5.3 g/dL (6.4-8.2); Sodium Level 144 mmol/L (136-145)
--- NOTE | 2021-05-17 07:07 | CT_ITS ---
STUDY: CT ABDOMEN AND PELVIS WITHOUT CONTRAST REASON FOR EXAM: Male, 65 years old. left hydroureter, kidney stone RADIATION DOSAGE (If Supplied By Facility): CTDIvol = ( 22.94 ) mGy, DLP = ( 1439.01 ) mGycm TECHNIQUE: Transaxial images were obtained from the dome of the diaphragm to the symphysis pubis without oral contrast, and without intravenous contrast. Sagittal and coronal images were reconstructed. Individualized dose optimization techniques were used for this CT. COMPARISON: 09/21/2020 FINDINGS: Left lower lobe airspace disease is present with noted chronic peripheral pleural calcifications of the left lower lung. The visualized portions of the heart are within normal limits. Normal liver. Normal gallbladder and extrahepatic biliary system. Normal spleen. Normal pancreas. Normal bilateral adrenal glands. There is moderate cortical atrophy of the right kidney, consistent with chronic medical renal disease. There is severe cortical atrophy of the left kidney, consistent with chronic medical renal disease. Normal visualized stomach. Normal small intestine. Normal colon. The appendix is visualized and appears normal. Normal abdominal aorta. Normal inferior vena cava. Normal retroperitoneum. There is inflammatory stranding surrounding the anterior and lateral portions of the urinary bladder with question of mild wall thickening. There is a lateral inguinal hernia containing adipose tissue. Normal osseous structures. CT/Abdomen/Pelvis without Cont IMPRESSION: 1. Compared to previous there is reduced left hydronephrosis with moderate atrophic changes of the left kidney versus small extrarenal pelvis. Punctate left nephrolith is present without evidence of obstruction. There is mild inflammatory stranding versus chronic appearance of the anterior lateral bladder with underlying cystitis not excluded, clinically correlate. Otherwise no evidence of additional acute intra-abdominal process. 2. Left lower lobe airspace disease concerning for acute infiltrate in the appropriate clinical setting. Electronically Signed: Get Berkowitz DO at 8:45 EDT , Service support ,
[2021-05-17] MEDS: 0.9% Normal Saline 1,000 ML 100 ML IV (07:45)
--- NOTE | 2021-05-17 07:46 | PCM.CONS.U ---
Assessment & Plan Assessment/Plan (1) Hydronephrosis: PLAN: On review of ultrasound he has very minimal left hydronephrosis. (2) Left renal stone: PLAN: On review of ultrasound there appears to be a stone in the lower pole the left kidney recommend we do a CT scan stone protocol reviewed with the patient regarding his bladder and bladder management. HPI Consult Data Date of Consult: 05/17/21 HPI Narrative HPI Narrative: NERY MIDDLETON, is a 65 M who presents to the hospital with a very high white blood count he was admitted and started on an antibiotics, he has a history of multiple sclerosis with progressive disease and has been lots of difficulty getting around. On ultrasound was done and was read as hydronephrosis on my review of the images very minimal hydronephrosis the left kidney there does appear to be a stone in the left kidney but appears to be nonobstructive his bladder is fairly distended on ultrasound. [facility] Medical History (Updated 05/17/21 @ 07:[address] Wilmer Bernardo MD) Abnormal EKG Atrial septal defect Bladder cancer Hyperlipidemia Hypertension Kidney stones Multiple sclerosis Obstructive sleep apnea Paroxysmal atrial fibrillation Pulmonary embolism Recurrent UTI Syncope due to orthostatic hypotension Home Medications vitamin E (dl, acetate) 400 units PO DAILY 09/14/17 [History Last Taken 05/15/21] meclizine 25 mg tablet 25 mg PO BID PRN PRN 11/04/17 [History Last Taken 01/09/20] ocrelizumab 30 mg/mL intravenous solution 600 mg IV .COMPLEX 11/04/17 [History Last Taken 05/03/21] tizanidine 4 mg capsule 4 mg PO Q8H PRN 11/04/17 [History Last Taken 07/25/19] cholecalciferol (vitamin D3) 5,000 unit PO DAILY 05/28/18 [History Last Taken 05/15/21] multivitamin with folic acid 1 tab PO DAILY 05/28/18 [History Last Taken 05/15/21] pantoprazole 40 mg PO DAILY 12/01/19 [History Last Taken 05/15/21] lisdexamfetamine 50 mg PO DAILY 01/16/20 [History Last Taken 05/15/21] tamsulosin 0.4 mg PO DAILY #30 cap.er.24h 01/18/20 [Rx Last Taken 05/15/21] potassium citrate 15 meq PO BID #60 tablet.er 02/04/20 [Rx Last Taken 05/15/21] duloxetine 60 mg capsule,delayed release sprinkle 60 mg PO DAILY 07/20/20 [History Last Taken 05/15/21] lisinopril 40 mg tablet 20 mg PO BREAKFAST tab 07/20/20 [History Last Taken 05/15/21] albuterol sulfate 2.5 mg INHALATION Q4H PRN #180 vial 01/17/21 [Rx Last Taken Unknown] carvedilol 12.5 mg tablet 12.5 mg PO BID #180 tab 01/18/21 [Rx Last Taken 05/15/21] simvastatin 20 mg tablet 20 mg PO QHS #90 tab 04/24/21 [Rx Last Taken 05/14/21] apixaban 5 mg tablet 5 mg PO BID #60 tab 05/11/21 [Rx Last Taken 05/15/21] Allergy/AdvReac Type Severity Reaction Status Date / Time No Known Allergies Allergy Verified 05/15/21 18:16 Family History Father CAD (coronary artery disease) Hypertension Myocardial infarction Mother Hypertension Sister Multiple sclerosis Surgical History History of vasectomy ureteroscopy Social History Smoking Status: Never smoker ROS Constitutional Constitutional: Denies chills, fever(s) or malaise Eyes Eyes: Denies blurry vision or change in vision ENT HEENT: Reports none Cardiovascular Cardiovascular: Denies chest pain or palpitations Respiratory/Chest Respiratory/Chest: Denies cough or shortness of breath with exertion Gastrointestinal Gastrointestinal: Denies abdominal pain, constipation or diarrhea Genitourinary Genitourinary: Reports systems reviewed and no addt'l complaints, except as documented Musculoskeletal Musculoskeletal: Denies back pain, joint stiffness or joint swelling Integumentary Integumentary: Denies dry skin, jaundice, lesions or rash Neurologic Neurologic: Denies confusion, syncope or weakness Psychiatric Psychiatric: Reports none; Denies anxiety or depression Endocrine Endocrinology: Denies excessive sweating, fatigue or flushing Hematologic/Lymphatic Hematologic/Lymphatic: Denies anemia, easy bleeding or easy bruising Physical Exam Const alert and oriented x3 General Appearance: cooperative HEENT normocephalic, head/scalp atraumatic, EAC's normal and TM's normal bilaterally Eyes PERRL and EOMs intact bilaterally Pupil: sluggish Neck no lymphadenopathy, supple and no JVD General: trachea midline Lymph Lymphatic: no lymphadenopathy noted, lymphedema and lymphadenopathy Resp normal respiratory effort, normal air movement and clear to auscultation bilaterally Cardio regular rate, regular rhythm and peripheral pulses 2+ throughout GI soft to palpation, non-tender and non-distended Extremity normal capillary refill and no clubbing, cyanosis or edema General Extremity: no tenderness to palpation of joints or extremities Skin no rashes or lesions noted General Skin Exam: turgor normal Lesions: no lesions Rashes: no rashes Neuro CN's II-XII intact bilaterally Speech: speech normal Motor Exam: strength 5/5 throughout; Negative for general weakness Psych thought process normal, cooperative and affect normal Appearance: appropriate Lab / Micro Data Result Diagrams: 05/17/21 05:45 05/17/21 05:45 Labs: Laboratory Results - last 24 hr 05/15/21 05/16/21 05/17/21 18:40 06:10 05:45 WBC 8.6 RBC 5.09 Hgb 14.5 Hct 46.5 MCV 91.4 MCH 28.5 MCHC 31.2 L RDW Std Deviation 45.8 H RDW Coeff of Bravo 13.4 Plt Count 183 MPV 9.5 Immature Gran % (Auto) 0.700 Neut % (Auto) 66.6 Lymph % (Auto) 17.0 L [place] % (Auto) 12.7 H Eos % (Auto) 2.6 Baso % (Auto) 0.4 Absolute Neuts (auto) 5.7 Absolute Lymphs (auto) 1.46 Nucleated RBC % 0 [address] Path Review Reviewed Reviewed Sodium Potassium Chloride Carbon Dioxide Anion Gap BUN Creatinine Estim Creat Clear Calc Est GFR (MDRD) Af Amer Est GFR (MDRD) Non-Af BUN/Creatinine Ratio Glucose Calcium Total Bilirubin AST ALT Alkaline Phosphatase Total Protein Albumin Globulin Albumin/Globulin Ratio 05/17/21 05:45 WBC RBC Hgb Hct MCV MCH MCHC RDW Std Deviation RDW Coeff of Bravo Plt Count MPV Immature Gran % (Auto) Neut % (Auto) Lymph % (Auto) [place] % (Auto) Eos % (Auto) Baso % (Auto) Absolute Neuts (auto) Absolute Lymphs (auto) Nucleated RBC % Diff Path Review Sodium 144 Potassium 3.5 Chloride 112 H Carbon Dioxide 30.0 Anion Gap 2 L BUN 21 H Creatinine 1.15 Estim Creat Clear Calc 85.00 Est GFR (MDRD) Af Amer 82 Est GFR (MDRD) Non-Af 68 BUN/Creatinine Ratio 18.3 Glucose 116 H Calcium 7.9 L Total Bilirubin 0.50 AST 10 L ALT 19 Alkaline Phosphatase 90 Total Protein 5.3 L Albumin 2.2 L Globulin 3.1 Albumin/Globulin Ratio 0.7 L Micro: Microbiology 05/16/21 07:10 Enteric Bacteriology - Final Stool C. difficile DNA Amplification - Final Radiology Impression Renal Ultrasound 05/16/21 13:26 IMPRESSION: 1. Bilaterally enlarged kidneys. 2. Simple right renal cyst. No follow-up required. 3. Left-sided hydronephrosis with renal calculus. This correlates with the CT finding. 4. Diffuse thickening of the urinary bladder wall. Electronically Signed: Federico Roy DO at 19:19 EDT Tel [phone], Service support ,
[2021-05-17 07:47] VITALS: BP 109/77; PULSE 77; RESP 18; TEMP 36.4; O2SAT 94
[2021-05-17] MEDS: DULoxetine Hcl 60 MG Capsule PO (10:22)
[2021-05-17] MEDS: Vitamin E 400 UNITS Capsule PO (10:22)
[2021-05-17] MEDS: Pantoprazole Sodium 40 MG Tablet PO (10:22)
[2021-05-17] MEDS: APIXABAN 5 MG TABLET PO (10:22)
[2021-05-17] MEDS: Multivitamins,Therapeutic Tablet 1 TABLET PO (10:22)
[2021-05-17] MEDS: Cholecalciferol (VIT D3) 25 MCG TABLET (1,000 UNITS) 125 MCG PO (10:22)
[2021-05-17] MEDS: Tamsulosin HCl 0.4 MG Capsule PO (10:22)
[2021-05-17] MEDS: 0.9% Saline Lock 10 ML Syringe IV ×2 (10:26→12:57)
[2021-05-17] MEDS: LISDEXAMFETAMINE DIMESYLATE 50 MG CAPSULE PO (10:30)
--- NOTE | 2021-05-17 12:33 | NURSING ---
was incontinent in attends for large amount,
[2021-05-17] MEDS: Furosemide 40 MG/4 ML Vial IV (12:55)
--- NOTE | 2021-05-17 12:55 | PCM.DC.SUM ---
Providers Date of Admission: 05/15/21 Date of Discharge: 05/17/21 Primary Care Physician: Dr. Amanuel Duckworth III, MD Consultations 05/17/21 07:07 Consult: Urology Routine Consulting Provider: Wilmer Bernardo Reason for Consult: Recurrent UTI, kidney stones, hydronephrosis EMERGENT Consult: No MD Notified: Yes Date Notified: 05/17/21 Time Notified: 07:38 Method of Notification: Verbal Reason For Visit: DEHYDRATION Diagnosis Discharge Diagnosis (1) Recurrent UTI: Status: Acute Code(s): N39.0 - Urinary tract infection, site not specified (2) Syncope: Status: Resolved Code(s): R55 - Syncope and collapse (3) Syncope due to orthostatic hypotension: Status: Resolved Code(s): I95.1 - Orthostatic hypotension (4) Hypotension: Status: Resolved Code(s): I95.9 - Hypotension, unspecified (5) Dehydration: Status: Resolved Code(s): E86.0 - Dehydration Medications at Discharge Home Medications vitamin E (dl, acetate) 400 units PO DAILY 09/14/17 ocrelizumab 30 mg/mL intravenous solution 600 mg IV .COMPLEX 11/04/17 tizanidine 4 mg capsule 4 mg PO Q8H PRN 11/04/17 cholecalciferol (vitamin D3) 5,000 unit PO DAILY 05/28/18 multivitamin with folic acid 1 tab PO DAILY 05/28/18 pantoprazole 40 mg PO DAILY 12/01/19 lisdexamfetamine 50 mg PO DAILY 01/16/20 potassium citrate 15 meq PO BID #60 tablet.er 02/04/20 duloxetine 60 mg capsule,delayed release sprinkle 60 mg PO DAILY 07/20/20 albuterol sulfate 2.5 mg INHALATION Q4H PRN #180 vial 01/17/21 simvastatin 20 mg tablet 20 mg PO QHS #90 tab 04/24/21 apixaban 5 mg tablet 5 mg PO BID #60 tab 05/11/21 cefdinir 300 mg PO BID 6 Days #12 cap 05/17/21 tamsulosin 0.4 mg PO BID #60 cap 05/17/21 Hospital Course Operations None Procedures None Summary of Care Provided Minutes Spent on Discharge: 50 Hospital Course: 65-year-old male with PMHx of MS complicated by left hemiplegia, history of recurrent UTIs in the setting of neurogenic bladder,, who comes in with progressive weakness and hypotension. Patient's blood pressure was 60/40. His white cell count was 22.8, creatinine is 1.45 which is up from his baseline of 0.96. His UA was abnormal. Patient was started on IV ceftriaxone. He was admitted to the [facility] floor. His blood pressure medications were held. He received multiple fluid boluses, and was maintained on maintenance IV fluids. Patient's urine cultures were unremarkable. He underwent renal ultrasound that showed bilateral enlarged kidneys, left hydronephrosis with renal calculus. CT scan of the abdomen and pelvis showed reduced left hydronephrosis with moderate atrophic changes of the left kidney, left lower lobe airspace disease concerning for acute infiltrate. No fevers were noticed in this admission. Urology was consulted, recommended bladder scanning and follow-up with him in the outpatient. Patient continued to have elevated PVRs and on further discussion with urology, patient had a Vo catheter placed. He will follow-up with urology within a week. Patient was encouraged to continue to use his incentive spirometer. Complete your antibiotics as prescribed. Continue to keep yourself hydrated. Follow-up with your primary care doctor within 1 to 2 weeks. He was discharged home on oral cefdinir to complete a 1 week treatment. Physical Exam Narrative General: Alert, Oriented x3, Cooperative, No apparent distress, off oxygen HEENT: Atraumatic, PERRLA, EOMI, Normocephalic Oral: Moist Mucosa Neck: Supple Lungs: Clear to auscultation, Normal air movement Cardiovascular: Regular rate, Regular Rhythm, Normal S1, Normal S2, 3/6 holosystolic murmurs Abdomen: Bowel Sounds Present, Soft, Non Tender, No Hepato-splenomegaly, Obese Extremities: No edema Neurological: Left sided flaccid paralysis, Power in right UE 5/5, RLE 3/5 Psych/Mental Status: Normal Affect, Appropriate Weight / BMI Weight Weight: 121.8 kg Body Mass Index (BMI) 31.0 ABG / Lab / Microbiology Data Result Diagrams: 05/17/21 05:45 05/17/21 05:45 Laboratory: Laboratory Results - last 24 hr 05/17/21 05/17/21 05:45 05:45 WBC 8.6 RBC 5.09 Hgb 14.5 Hct 46.5 MCV 91.4 MCH 28.5 MCHC 31.2 L RDW Std Deviation 45.8 H RDW Coeff of Bravo 13.4 Plt Count 183 MPV 9.5 Immature Gran % (Auto) 0.700 Neut % (Auto) 66.6 Lymph % (Auto) 17.[address] [facility] % (Auto) 12.7 H Eos % (Auto) 2.6 Baso % (Auto) 0.4 Absolute Neuts (auto) 5.7 Absolute Lymphs (auto) 1.46 Nucleated RBC % 0 Sodium 144 Potassium 3.5 Chloride 112 H Carbon Dioxide 30.0 Anion Gap 2 L BUN 21 H Creatinine 1.15 Estim Creat Clear Calc 85.00 Est GFR (MDRD) Af Amer 82 Est GFR (MDRD) Non-Af 68 BUN/Creatinine Ratio 18.3 Glucose 116 H Calcium 7.9 L Total Bilirubin 0.50 AST 10 L ALT 19 Alkaline Phosphatase 90 Total Protein 5.3 L Albumin 2.2 L Globulin 3.1 Albumin/Globulin Ratio 0.7 L Microbiology: Microbiology 05/15/21 19:00 Urine Culture - Final Urine, Random Mixed Gram Pos & Gram Neg Org 05/16/21 07:10 Enteric Bacteriology - Final Stool C. difficile DNA Amplification - Final Microbiology 05/15/21 19:00 Urine, Random Urine Culture - Final Mixed Gram Pos & Gram Neg Org 05/16/21 07:10 Stool Enteric Bacteriology - Final 05/16/21 07:10 Stool C. difficile DNA Amplification - Final Radiography Diagnostic Testing: Radiology Impression Renal Ultrasound 05/16/21 13:26 IMPRESSION: 1. Bilaterally enlarged kidneys. 2. Simple right renal cyst. No follow-up required. 3. Left-sided hydronephrosis with renal calculus. This correlates with the CT finding. 4. Diffuse thickening of the urinary bladder wall. Electronically Signed: Federico Roy DO at 19:19 EDT Tel [phone], Service support , Abdomen/Pelvis CT 05/17/21 07:07 IMPRESSION: 1. Compared to previous there is reduced left hydronephrosis with moderate atrophic changes of the left kidney versus small extrarenal pelvis. Punctate left nephrolith is present without evidence of obstruction. There is mild inflammatory stranding versus chronic appearance of the anterior lateral bladder with underlying cystitis not excluded, clinically correlate. Otherwise no evidence of additional acute intra-abdominal process. 2. Left lower lobe airspace disease concerning for acute infiltrate in the appropriate clinical setting. Electronically Signed: Get Berkowitz DO at 8:45 EDT , Service support , D/C Instructions Discharge Diet: Low fat / Low cholesterol, 6 Cup Fluid Restriction and 2000 mg Sodium Diet Meaningful Use Info Meaningful Use Diagnoses (Choose all that apply): None applicable Discharge Plan Admission Admit Date/Time: 05/15/21 22:37 Primary Reason for Your Visit: Hypotension, UTI Attending Provider: Rosalia Brooks Primary Care Provider: Amanuel Duckworth III Consulting Providers: Wilmer Bernardo Instructions Additional Instructions / Restrictions: Take note of changes in your medications. Take your BP daily. Follow-up with your PCP within 1 week for repeat blood work. Follow-up with Dr. Bernardo within 1 week. Discharge Orders/Prescriptions Prescriptions: New tamsulosin 0.4 mg Capsule 0.4 mg PO BID Qty: 60 RF: 0 cefdinir 300 mg capsule 300 mg PO BID 6 Days Qty: 12 RF: 0 Continued ocrelizumab [Ocrevus] 30 mg/mL solution 600 mg IV .COMPLEX RF: 0 tizanidine [Zanaflex] 4 mg capsule 4 mg PO Q8H PRN (Reason: Muscle Spasm) RF: 0 duloxetine 60 mg capsule, delayed rel sprinkle 60 mg PO DAILY RF: 0 vitamin E (dl, acetate) 400 UNIT capsule 400 units PO DAILY RF: 0 cholecalciferol (vitamin D3) 1,000 UNIT tablet 5,000 unit PO DAILY RF: 0 multivitamin with folic acid 1 TABLET tablet 1 tab PO DAILY RF: 0 pantoprazole 40 MG tablet 40 mg PO DAILY RF: 0 lisdexamfetamine 50 MG capsule 50 mg PO DAILY RF: 0 potassium citrate 15 MEQ tablet extended release 15 meq PO BID Qty: 60 RF: 5 albuterol sulfate 2.5 mg /3 mL (0.083 %) solution for nebulization 2.5 mg INHALATION Q4H PRN (Reason: shortness of breath or wheezing) Qty: 180 RF: 6 simvastatin 20 mg tablet 20 mg PO QHS Qty: 90 RF: 3 apixaban 5 mg tablet 5 mg PO BID Qty: 60 RF: 6 Discontinued meclizine 25 mg tablet 25 mg PO BID PRN PRN (Reason: Vertigo) RF: 0 carvedilol 12.5 mg tablet 12.5 mg PO BID Qty: 180 RF: 3 tamsulosin 0.4 MG capsule 0.4 mg PO DAILY Qty: 30 RF: 0 lisinopril 40 mg tablet 20 mg PO BREAKFAST RF: 0 Referrals / Follow Up: Amanuel Duckworth III, MD [Primary Care Provider] - Within 1 Week Wilmer Bernardo MD [STAFF PHYSICIAN] - 05/22/21 11:15 am Disposition Disposition (needs filled in before D/C Order can be placed): Home Health Service Charges/Coding Visit Charges Inpatient E&M: 02137 Disch Hosp
--- NOTE | 2021-05-17 12:59 | CASEMGMT ---
DI Negron at [facility] to make aware of pt dc today. She states that patient is on the schedule for Friday.
[2021-05-17 18:20] VITALS: BP 128/76; PULSE 64; RESP 18; TEMP 37.1
== END 2021-05-17 18:39 | disposition home health service (06) ==
LOC: ED 20:18 → MS3 22:46
PROVIDERS: Emergency Provider Emergency Medicine; PCP Family Medicine; Visit Provider Internal Medicine
DX: N13.6 Pyonephrosis (principal); G35 Multiple sclerosis; I48.0 Paroxysmal atrial fibrillation; E78.5 Hyperlipidemia, unspecified; Q21.1 Atrial septal defect; I10 Essential (primary) hypertension; G47.33 Obstructive sleep apnea (adult) (pediatric); Z79.01 Long term (current) use of anticoagulants; Z86.711 Personal history of pulmonary embolism; Z79.899 Other long term (current) drug therapy; I95.1 Orthostatic hypotension; N31.9 Neuromuscular dysfunction of bladder, unspecified; Z85.51 Personal history of malignant neoplasm of bladder; E86.0 Dehydration; N17.9 Acute kidney failure, unspecified
CPT/HCPCS: 36415; 70450; 71045; 74176; 76770; 80048; 80053; 81001; 83605; 84484; 85025; 85610; 85730; 87040; 87086; 87088; 87493; 87506; 93005; 96361; 96365; 96366; 96375; 97162; 97166; 99218; 99251; 99285; J7030; J7040; A4216; G0378; G0463; J1940

== ENCOUNTER → 2021-07-11 08:49 | Outpatient (CLI) | payer MEDICARE, SELFPAY ==
[2021-05-15 22:42] VITALS: BMI 31.0
[2021-07-11 11:01] LABS: AST(SGOT) 10 U/L (15-37); Alanine Aminotransfer ALT/SGPT 22 U/L (16-61); Albumin, Serum 3.4 g/dL (3.2-5.0); Alkaline Phosphatase 105 U/L (45-117); Bilirubin, Direct 0.16 mg/dL (0.00-0.30); Cholesterol 131 mg/dL (200); Globulin 3.7 g/dL (2.2-4.2); High Density Lipoprotein 43 mg/dL; Protein, Total 7.1 g/dL (6.4-8.2); Triglycerides 161 mg/dL; Very Low Density Lipoprotein 32 mg/dL (5-40)
== END ==
PROVIDERS: Physician Assistant Medical; PCP Internal Medicine; Referring Provider Nurse Practitioner Adult Health; Visit Provider Nurse Practitioner Adult Health
DX: E78.5 Hyperlipidemia, unspecified (principal); Z85.51 Personal history of malignant neoplasm of bladder; E78.00 Pure hypercholesterolemia, unspecified
CPT/HCPCS: 36415; 80061; 80076

== ENCOUNTER → 2021-08-22 08:29 | Outpatient (CLI) | payer MEDICARE, SELFPAY ==
--- NOTE | 2021-08-22 | CYSPIN_PTH ---
PATIENT: NERY MIDDLETON LOC: [facility] U#:[id number] AGE/SX: 70/M ROOM: RE08/22/[address]: Dr. Robert John MD : 1955 BED: DIS: SPEC #: [id number] RECD: 08/22/21 11:00 STATUS: HELDER RIGO #: [id number] RASHID: 08/22/21 00:[address]: Odalys Gastelum NP DEPT: CYTOLOGY RECD BY: Huey Jerez ENTERED: 08/22/21 12:02 SP TYPE: CYSPIN FL OTHR DR: Dr. Robert John MD Tissues: Urine Procedures: Pap Stain (control) Special Stain Group II Cytospin Fluid HEADER OPERATION: Not noted PRE-OP DIAGNOSIS: 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 bladder TISSUE SUBMITTED: Urine for cytology DIAGNOSIS CYTOLOGY Urine for cytology (cytospin): Atypical urothelial cells noted. Marked acute inflammation. See comment. SJ:tiffanie 08/23/2021 COMMENT Numerous organisms consistent with bacteria are also noted. Clinical correlation and appropriate follow up are necessary. Repeat cytology is suggested if clinically indicated. 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 Case has been reviewed in consultation with Dr. Sibley who concurs with the above diagnosis. IDC:AM CYTOLOGY STUDY Slides are reviewed. CYTOLOGY GROSS Received is 35 ml of cloudy yellow fluid labeled with the patient's name and and designated per the requisition as urine. Submitted for cytology preparation. / tiffanie 08/22/2021 TC:2 CPT: 21358
[2021-08-22 08:34] LABS: Cytology, Body Fluid / CSF SEE PATHOLOGY REPORT
[2021-08-22 10:42] LABS: Hemoglobin A1c 5.5 % (3.8-5.6)
== END ==
PROVIDERS: Nurse Practitioner Adult Health; PCP Internal Medicine; Referring Provider Internal Medicine; Visit Provider Internal Medicine
DX: Z79.899 Other long term (current) drug therapy (principal); Z85.51 Personal history of malignant neoplasm of bladder
CPT/HCPCS: 36415; 83036; 88108; 88313

== ENCOUNTER → 2021-11-27 07:57 | Outpatient (CLI) | payer MEDICARE, SELFPAY ==
[2021-11-27 08:06] VITALS: BP 111/82; PULSE 91; RESP 16; TEMP 35.7; BMI 31.1
[2021-11-27] MEDS: 0.9% NaCl IVPB Med Flush (250 mL) 15 ML IV (08:12)
[2021-11-27] MEDS: Acetaminophen 500 MG Tablet 1000 MG PO (08:13)
[2021-11-27] MEDS: MethylPREDNISolone 125 MG/2 ML Vial 100 MG IV (08:16)
[2021-11-27] MEDS: DiphenhydrAMINE 50 MG/ML Syringe 25 MG IV (08:19)
[2021-11-27] MEDS: Ocrelizumab 600mg Infusion 40 MG IV (08:56)
== END ==
PROVIDERS: PCP Internal Medicine; Visit Provider Psychiatry & Neurology Sleep Medicine
DX: G35 Multiple sclerosis (principal)
CPT/HCPCS: 96365; 96366; 96375; J7040; J7050; J2350

== ENCOUNTER 2022-02-26 16:23 | Outpatient (CLI) | payer MEDICARE, SELFPAY | END 2022-02-26 23:59 | disposition home or self-care (01) | LOC: LAB.FUTURE 16:23 | PROVIDERS: PCP Internal Medicine; Visit Provider Urology | DX: N39.0 Urinary tract infection, site not specified (principal) | CPT/HCPCS: 87077; 87086; 87088; 87186 ==

== ENCOUNTER → 2022-05-24 | Outpatient (CLI) | payer MEDICARE, SELFPAY ==
[2022-05-24] MEDS: 0.9% NaCl Peripheral Flush Adult/Peds IV ×2 (08:03→13:19)
[2022-05-24] MEDS: 0.9% NaCl IVPB Med Flush (250 mL) 15 ML IV (08:09)
[2022-05-24] MEDS: Acetaminophen 500 MG Tablet 1000 MG PO (08:14)
[2022-05-24] MEDS: MethylPREDNISolone 125 MG/2 ML Vial 100 MG IV (08:15)
[2022-05-24] MEDS: DiphenhydrAMINE 50 MG/ML Syringe 25 MG IV (08:19)
[2022-05-24 08:25] VITALS: BP 124/78; PULSE 45; RESP 14; TEMP 36.3; O2SAT 91; BMI 31.1
[2022-05-24] MEDS: Ocrelizumab 600mg Infusion 40 MG IV (08:59)
== END | disposition home or self-care (01) ==
LOC: MEDOUTP 07:51
PROVIDERS: PCP Internal Medicine; Referring Provider Psychiatry & Neurology Sleep Medicine; Visit Provider Psychiatry & Neurology Sleep Medicine
DX: G35 Multiple sclerosis (principal)
CPT/HCPCS: 96365; 96366; 96375; J7040; J7050; A4216; J2350

== ENCOUNTER 2022-07-02 16:07 | Observation (INO) | payer MEDICARE, SELFPAY ==
[2022-07-02] VITALS (12 sets, daily range): BP systolic 91–116; BP diastolic 62–86; PULSE 64–122; RESP 18–22; TEMP 36.6–36.8; O2SAT 92–96; BMI 33.0; BMI 32.8
--- NOTE | 2022-07-02 16:34 | RAD_ITS ---
STUDY: PORTABLE AP UPRIGHT CHEST X-RAY OF 1634 HOURS ON 07/02/2022 REASON FOR EXAM: 66-year-old male with chest pain. TECHNIQUE: Single view portable AP upright chest x-ray was performed per protocol. COMPARISON: 05/15/2021. FINDINGS: Mild demineralization. Thoracic dextroscoliosis. [id number] cardiomegaly without heart failure. Prominently elevated left hemidiaphragm with air-filled splenic flexure of the colon beneath the left hemidiaphragm--this could result in the chest pain of a splenic flexure syndrome. Addition, there is a colonic ileus. There is no distinct evidence of pulmonary infiltrates. There is mild atelectatic changes left lower lobe adjacent to the elevated left hemidiaphragm No infiltrates or effusion. No pulmonary mass lesions. RAD/Chest 1 View (Portable) IMPRESSION: 1. Mild to moderate cardiomegaly without failure. 2. Prominently elevated left hemidiaphragm with air-filled splenic flexure of the colon beneath the left hemidiaphragm--this could result in the chest pain no splenic flexure syndrome. 3. Mild atelectatic changes in the left lower lobe adjacent to the elevated left hemidiaphragm. 4. No evidence of infiltrates, effusion, or pulmonary mass lesions. 5. Colonic ileus. Electronically Signed: Robb Lam MD at 17:26 EDT ,
--- NOTE | 2022-07-02 16:34 | EX.ED.DYSGE1 ---
HPI History of Present Illness Chief Complaint: General Illness Informant: patient and spouse/S.O. Onset/Context/Timing Onset: Days Context: Gradual Onset Timing: Continuous Current Severity: Mild Maximum Severity: Mild Narrative Narrative: 66-year-old male extensive past medical history of MS with severe weakness to his left upper and lower extremity. History of A. fib on Eliquis, bladder cancer and prior saddle emboli. States he had diarrhea Friday and Friday. It resolved yesterday and today. He has had no recent hospitalization. No recent antibiotics. Today he had a headache and been complaining of dizziness. He normally does not walk due to his left-sided weakness. He denies any falls or head trauma. Denies any fever. Prior similar symptoms: No Recent Illness/Hospitalization: No [facility] Medical History (Updated 07/02/22 @ 16:[address] Phillip Mckeon MD) Abnormal EKG Atrial septal defect Bladder cancer Hyperlipidemia Hypertension Kidney stones Multiple sclerosis Obstructive sleep apnea Paroxysmal atrial fibrillation Pulmonary embolism Recurrent UTI Syncope due to orthostatic hypotension Home Medications ocrelizumab 30 mg/mL intravenous solution (Ocrevus) 600 mg IV .COMPLEX multiple sclerosis 11/04/17 [History Last Taken 05/24/22] cholecalciferol (vitamin D3) 25 mcg (1,000 unit) tablet 5,000 unit PO DAILY supplement 05/28/18 [History Last Taken 07/01/22] multivitamin with folic acid 400 mcg tablet 1 tab PO DAILY supplement 05/28/18 [History Last Taken 07/01/22] pantoprazole 40 mg tablet,delayed release 40 mg PO DAILY reflux 12/01/19 [History Last Taken 07/02/22] lisdexamfetamine 50 mg capsule 50 mg PO DAILY MS 01/16/20 [History Last Taken 07/02/22] potassium citrate 15 mEq (1,620 mg) tablet,extended release 15 meq PO BID ##60 02/04/20 [Rx Last Taken 07/02/22] albuterol sulfate 2.5 mg/3 mL (0.083 %) solution for nebulization 2.5 mg (3 mL) inhalation Q4H PRN shortness of breath or wheezing #180 vials 01/17/21 [Rx Last Taken Unknown] lisinopril 20 mg tablet 20 mg PO DAILY 07/18/21 [History Last Taken 07/01/22] carvedilol 12.5 mg tablet (Coreg) 12.5 mg PO BID #180 tabs 10/01/21 [Rx Last Taken 07/02/22] apixaban 5 mg tablet 5 mg PO BID blood thinner #180 tabs 02/04/22 [Rx Last Taken 07/02/22] simvastatin 20 mg tablet 20 mg PO QHS cholesterol #90 tabs 05/01/22 [Rx Last Taken 07/01/22] duloxetine 60 mg capsule,delayed release 60 mg PO QHS nerve 07/02/22 [History Last Taken 07/01/22] hydrochlorothiazide 12.5 mg capsule 12.5 mg PO DAILY heart 07/02/22 [History Last Taken 07/01/22] meclizine 25 mg tablet 25 mg PO DAILY PRN Dizziness 07/02/22 [History Last Taken 07/02/22] tamsulosin 0.4 mg capsule 0.4 mg PO QHS 07/02/22 [History Last Taken 07/01/22] tizanidine 4 mg tablet 4 mg PO Q8H PRN muscles 07/02/22 [History Last Taken 2 Weeks Ago ~06/18/22] Allergy/AdvReac Type Severity Reaction Status Date / Time No Known Allergies Allergy Verified 03/21/22 10:15 Family History Father CAD (coronary artery disease) Hypertension Myocardial infarction Mother Hypertension Sister Multiple sclerosis Surgical History History of vasectomy ureteroscopy Social History Smoking Status: Never smoker ROS ROS ED ROS Narrative Diarrhea for 3 days that is since resolved. Headache. Dizziness. Review of Systems ROS Unobtainable: Denies due to encephalopathy Constitutional Constitutional ED: Denies chills or fever(s) Eyes Eyes: Denies blurry vision ENT ENT ED: Denies ear pain Cardiovascular Cardiovascular: Denies chest pain or palpitations Respiratory/Chest Respiratory/Chest: Denies cough or dyspnea Gastrointestinal Gastrointestinal: Denies abdominal pain Genitourinary Genitourinary ED: Denies dysuria or hematuria Musculoskeletal Musculoskeletal: Denies arthralgias Integumentary Denies abscess Neurologic Neurologic: Reports headache(s) Psychiatric Psychiatric: Denies anxiety or depression Endocrine Endocrinology: Denies cold intolerance Hematologic/Lymphatic Hematologic/Lymphatic: Reports none Allergic/Immunologic Allergic/Immunologic ED: Denies mouth swelling or tongue swelling EXAM Physical Exam Narrative Exam Narrative: 66-year-old male no acute distress vital signs stable afebrile. Initial blood pressure 108/72. Pulse ox 90% on room air no signs hypoxia. H EENT exam unremarkable except for mildly dry mucous membranes. Pupils round reactive light. No facial droop. Normal speech. No trauma. Nontender. Neck nontender. Lungs are clear. Heart A. fib rate about 120 no murmur. Abdomen soft nontender. Moving all 4 extremities extremely weak in the left upper and lower extremity which is chronic from his MS. He has normal rubber and pounder strength of the right hand dorsi plantarflexion of the right leg. He is awake and alert. Const Vital Signs: 07/02/22 16:08 07/02/22 16:16 07/02/22 16:16 Temperature 98.2 F Temperature Source Oral Pulse Rate 64 80 Respiratory Rate 18 22 H Respiratory Effort Normal Respiratory Pattern Normal Blood Pressure 108/72 105/86 H Blood Pressure Mean 84 92 Pulse Ox 92 94 Oxygen Delivery Method Room Air Room Air 07/02/22 16:37 07/02/22 16:37 Temperature Temperature Source Pulse Rate Respiratory Rate Respiratory Effort Respiratory Pattern Blood Pressure Blood Pressure Mean Pulse Ox 93 93 Oxygen Delivery Method Room Air Positive well nourished, well developed and obese; Negative for cachectic, contractures or unkempt General Appearance ED: well developed and NAD; Negative for unkempt, cachectic, contractures, cyanotic or diaphoretic Nutritional Appearance: obese; Negative for cachectic HEENT Reports dry mucous membranes; Denies moist mucous membranes Negative for trauma or tenderness Mouth ED: Yes dry mucous membranes Mouth: dry mucous membranes Eyes PERRL and EOMs intact bilaterally General Eye ED: Negative for pale conjunctiva or scleral icterus Neck no lymphadenopathy, supple and no JVD General: Negative for tenderness Chest Wall inspection of chest normal and palpation of chest normal Resp normal respiratory effort and clear to auscultation bilaterally Effort and Inspection: Negative for retractions Auscultation: Negative for rales, rhonchi or wheezes Cardio Negative for regular rate or regular rhythm Rhythm: abnormal rhythm irregularly irregular GI normal to inspection, nondistended, normoactive bowel sounds, non-tender, non-distended and no masses Inspection: Negative for abdominal distention Auscultation: normoactive bowel sounds Palpation: soft; Negative for tender or guarding Back/Spine no CVA tenderness General Back: Negative for CVA tenderness Cervical Spine: Negative for cervical spine tenderness Thoracic Spine / Upper Back: Negative for thoracic spinal tenderness Lumbar Spine / Lower Back: Negative for lumbar spinal tenderness Extremity normal to inspection General Extremety ED: Negative for edema or tenderness General Extremity: Negative for edema Neuro oriented x3 Sensorium / Orientation: alert Psych Psych Narrative: Left upper lower extremity weakness that is chronic not new from history of MS. Appearance: Negative for unkempt Skin no rashes or lesions noted Rashes: No rashes noted Trauma: Negative for abrasion Wounds: Negative for wounds noted MDM MDM MDM Narrative Medical decision making narrative: 66-year-old male acute on chronic A. fib RVR. He is borderline hypotensive will be given a liter of fluid he has had diarrhea last 3 days which resolved on Friday. Was not undergo cardiac work-up. To be started on Cardizem and he may need to be admitted. Repeat exam no significant change at 6:05 PM. Discussed with patient and family. He will be admitted. Have already spoken to the hospitalist. He will be given IV and oral potassium replacement. He will be given the Cardizem. He will be given a second liter of fluid because his pressure is currently 88/51. He will be admitted to PCU. Lab Data Attestation: I reviewed the patient's lab results. Lab results narrative: CBC shows a white count of 7. H&H 14 and 44. Platelets 200. Electrolytes show hypokalemia potassium of 2.7 consistent with his recent diarrhea. We will give him IV and oral potassium replacement. His gap is 40 with a normal BUN and creatinine. Glucose 87. Troponin normal at 14. Labs: Laboratory Results - last 24 hr 07/02/22 07/02/22 16:25 16:25 WBC 7.9 RBC 5.11 Hgb 14.8 Hct 44.9 MCV 87.9 MCH 29.0 MCHC 33.0 RDW Std Deviation 42.3 RDW Coeff of Bravo 13.1 Plt Count 200 MPV 9.5 Immature Gran % (Auto) 0.600 Neut % (Auto) 59.8 Lymph % (Auto) 26.4 [place] % (Auto) 11.3 H Eos % (Auto) 1.5 Baso % (Auto) 0.4 Absolute Neuts (auto) 4.7 Absolute Lymphs (auto) 2.08 Nucleated RBC % 0 Sodium 145 Potassium 2.7 L* Chloride 116 H Carbon Dioxide 25.0 Anion Gap 4 L BUN 15 Creatinine 0.82 Estim Creat Clear Calc 117.66 Est GFR (MDRD) Af Amer 121 Est GFR (MDRD) Non-Af 100 BUN/Creatinine Ratio 18.2 Glucose 87 Calcium 7.2 L Troponin I High Sens 14 Radiography Chest X-Ray - ED: 1 View, Read by ED Physician, Lungs, Mediastinum, Bony Structures, No Acute Disease, Chronic Changes and Cardiomegaly Diagnostic Testing: Clinical Impression(s) from Imaging Studies Chest X-Ray 07/02/22 16:34 IMPRESSION: 1. Mild to moderate cardiomegaly without failure. 2. Prominently elevated left hemidiaphragm with air-filled splenic flexure of the colon beneath the left hemidiaphragm--this could result in the chest pain no splenic flexure syndrome. 3. Mild atelectatic changes in the left lower lobe adjacent to the elevated left hemidiaphragm. 4. No evidence of infiltrates, effusion, or pulmonary mass lesions. 5. Colonic ileus. Electronically Signed: Robb Lam MD at 17:26 EDT , Chest x-ray, portable, single view interpreted myself and radiologist shows cardiomegaly. Chronic changes no acute process. Elevated hemidiaphragms. Air in the colon. Rhythm Strip Rhythm Strip: A-fib Rate: 117 Ectopy: None EKG Initial EKG: Attestation: I personally reviewed and interpreted this EKG as follows: Interpretation: No Acute Injury Pattern and Atrial Fibrillation Comments: A. fib RVR rate of 117. Left bundle branch block. No acute signs of NE or ischemia. Discharge Plan Dx/Rx/DC Orders Clinical Impression: Atrial fibrillation with rapid ventricular response, Diarrhea, Acute dehydration, Hx of multiple sclerosis, Chronic anticoagulation Disposition Disposition: Acute Care [facility]
[2022-07-02] MEDS: 0.9% Normal Saline 1,000 ML 999 ML IV ×2 (16:38→18:16)
[2022-07-02 16:44] LABS: Absolute Lymphocyte Count 2.08 X10^3/uL (0.83-4.51); Absolute Neutrophil Count 4.7 X10^3/uL (2.0-7.7); Basophil# 0.03 X10^3/uL; Basophil% 0.4 % (0-1); Eosinophil# 0.12 X10^3/uL; Eosinophils% 1.5 % (0-5); Hematocrit 44.9 % (40-54); Hemoglobin 14.8 g/dL (13.0-16.5); Lymphocyte # 2.08 X10^3/ul (0.83-4.51); Lymphocyte % 26.4 % (19-41); Mean Corpuscular Volume 87.9 fL (80-94); Mean Platelet Vol. 9.5 fl (6.2-12.0); Monocyte# 0.89 X10^3/uL; Monocyte% 11.3 % (0-10); NRBC Flagged by Analyzer 0 % (0-5); Neutrophil # 4.72 X10^3/uL (2.7-7.7); Neutrophil % 59.8 % (47-70); Platelet Count 200 K/mm3 (150-450); RBC Distribution Width CV 13.1 % (11.6-14.6); RBC Distribution Width SD 42.3 fl (35.1-43.9); Red Blood Count 5.11 M/mm3 (4.6-6.2); White Blood Count 7.9 K/mm3 (4.4-11.0)
--- NOTE | 2022-07-02 16:45 | EKG12_ITS ---
Test Reason : converted to NSR Blood Pressure : / mmHG Vent. Rate : 073 BPM Atrial Rate : 073 BPM P-R Int : 234 ms QRS Dur : 070 ms QT Int : 376 ms P-R-T Axes : 027 003 028 degrees QTc Int : 414 ms Sinus rhythm with 1st degree A-V block Otherwise normal ECG When compared with ECG of 15-MAY-2021 18:45, [place] interval has increased Confirmed by CHARMAINE WINCHESTER, ESTUARDO ([id number]), food expeditor BRENDA VERMA ([id number]) on 07/04/2022 1:15:15 PM Referred By: Confirmed By:ESTUARDO MONTANO MD
[2022-07-02 17:16] LABS: Anion Gap 4 (5-15); BUN 15 mg/dL (7-18); BUN/Creat Ratio 18.2 RATIO (10-20); Calcium,Total 7.2 mg/dL (8.5-10.1); Chloride 116 mmol/L (98-107); Creatinine, Serum 0.82 mg/dL (0.70-1.30); EST Glomerular Filtration Rate 100 mL/min (>60); Est Glom Filt Rate - Afr Amer 121 mL/min (>60); Estimated Creatinine Clearance 117.66 ml/min; Glucose 87 mg/dL (74-106); Potassium 2.7 mmol/L (3.5-5.1); Sodium Level 145 mmol/L (136-145); Troponin-I HS (w/2H Reflex) 14 pg/mL (3.0-78.0)
--- NOTE | 2022-07-02 18:01 | PCM.HP.STD ---
HPI - General General Date of Admission: 07/02/22 Date of Service: 07/02/22 Chief Complaint: Fatigue, malaise, diarrhea, headache, LH. HPI Narrative The patient is a 66 y/o M w/ PMHx: Obesity, BPH, PAF, JOSH on BIPAP q HS, Hx VTE (DVT, Saddle PE), HTN, HLD, Hx Bladder CA s/p resection following w/ Dr. Bernardo, Hx Syncope associated with orthostatic hypotension, Hx Recurrent UTIs, Multiple sclerosis with chronic severe left-sided hemiplegia/paresthesias who presents to the [facility] ED on 07/02/22 with history of ongoing progressively worsening fatigue, malaise, loose stools starting the prior Friday, Friday and Friday with some improvement with loose stools the day prior with no recent antibiotics, ongoing headache and dizziness on day of presentation with no recent fevers or chills however given his ongoing symptoms prompted ED evaluation. He does not have marked sensation into the genitourinary region thus is always unaware of dysuria component. Family and patient note that he often does have UTI with PAF with RVR presentation. The family members in his home of note have also felt well with no recent illnesses. Work-up in the ED included T98.2, heart rate 64, BP 108/72, respiratory rate 18, 92% on room air, CBC with WC 7.9, hemoglobin 14.8, platelets 200 without marked shift, BMP with potassium 2.7, chloride 116, troponin 14 otherwise BMP in the marked side calcium 7.2, rapid COVID antigen negative, chest x-ray with mild to moderate cardiomegaly without any evidence of overload, prominently elevated left hemidiaphragm with air-filled splenic flexure of the colon beneath the left hemidiaphragm, mild atelectatic changes in the left lower lobe adjacent to the elevated left hemidiaphragm with no obvious infiltrate, effusion no pulmonary mass lesion, evidence of colonic ileus, CT head obtained and preliminarily no obvious evidence of any acute findings but radiological read pending upon evaluation. In the ED patient ministered normal saline bolus, Cardizem 25 mg IV bolus as well as potassium IV and oral supplementation. [facility] Medical History Abnormal EKG Atrial septal defect Bladder cancer Hyperlipidemia Hypertension Kidney stones Multiple sclerosis Obstructive sleep apnea Paroxysmal atrial fibrillation Pulmonary embolism Recurrent UTI Syncope due to orthostatic hypotension Home Medications ocrelizumab 30 mg/mL intravenous solution (Ocrevus) 600 mg IV .COMPLEX multiple sclerosis 11/04/17 [History Last Taken 05/24/22] cholecalciferol (vitamin D3) 25 mcg (1,000 unit) tablet 5,000 unit PO DAILY supplement 05/28/18 [History Last Taken 07/01/22] multivitamin with folic acid 400 mcg tablet 1 tab PO DAILY supplement 05/28/18 [History Last Taken 07/01/22] pantoprazole 40 mg tablet,delayed release 40 mg PO DAILY reflux 12/01/19 [History Last Taken 07/02/22] lisdexamfetamine 50 mg capsule 50 mg PO DAILY MS 01/16/20 [History Last Taken 07/02/22] potassium citrate 15 mEq (1,620 mg) tablet,extended release 15 meq PO BID ##60 02/04/20 [Rx Last Taken 07/02/22] albuterol sulfate 2.5 mg/3 mL (0.083 %) solution for nebulization 2.5 mg (3 mL) inhalation Q4H PRN shortness of breath or wheezing #180 vials 01/17/21 [Rx Last Taken Unknown] lisinopril 20 mg tablet 20 mg PO DAILY 07/18/21 [History Last Taken 07/01/22] carvedilol 12.5 mg tablet (Coreg) 12.5 mg PO BID #180 tabs 10/01/21 [Rx Last Taken 07/02/22] apixaban 5 mg tablet 5 mg PO BID blood thinner #180 tabs 02/04/22 [Rx Last Taken 07/02/22] simvastatin 20 mg tablet 20 mg PO QHS cholesterol #90 tabs 05/01/22 [Rx Last Taken 07/01/22] duloxetine 60 mg capsule,delayed release 60 mg PO QHS nerve 07/02/22 [History Last Taken 07/01/22] hydrochlorothiazide 12.5 mg capsule 12.5 mg PO DAILY heart 07/02/22 [History Last Taken 07/01/22] meclizine 25 mg tablet 25 mg PO DAILY PRN Dizziness 07/02/22 [History Last Taken 07/02/22] tamsulosin 0.4 mg capsule 0.4 mg PO QHS 07/02/22 [History Last Taken 07/01/22] tizanidine 4 mg tablet 4 mg PO Q8H PRN muscles 07/02/22 [History Last Taken 2 Weeks Ago ~06/18/22] Allergy/AdvReac Type Severity Reaction Status Date / Time No Known Allergies Allergy Verified 03/21/22 10:15 Family History Father CAD (coronary artery disease) Hypertension Myocardial infarction Mother Hypertension Sister Multiple sclerosis Surgical History (Updated 07/02/22 @ 18:[address] Anjelica Villa MD) History of bladder surgery History of lithotripsy History of vasectomy S/P ureteral stent placement Social History (Updated 07/02/22 @ 18:[address] Anjelica Villa MD) household members: spouse and family Smoking Status: Never smoker alcohol intake: never substance use type: does not use ROS ROS Narrative Admission Review of Systems: CONSTITUTIONAL: No weight loss, fever, chills, + weakness or fatigue. HEENT: Eyes: No visual loss, blurred vision, double vision or yellow sclerae. Ears, Nose, Throat: No hearing loss, sneezing, congestion, runny nose or sore throat. SKIN: No rash or itching, lesions, wounds. CARDIOVASCULAR: No chest pain, chest pressure or chest discomfort, palpitations, edema, orthopnea, syncopal events. RESPIRATORY: No shortness of breath, cough or sputum, wheezing, hemoptysis. GASTROINTESTINAL: + anorexia, nausea without vomiting, diarrhea, No abdominal pain, melena, BRBPR. GENITOURINARY: No dysuria, frequency, urgency or retention. NEUROLOGICAL: + Chronic L sided hemiplegia, paresthesias, headache, dizziness, No syncope, change in bowel or bladder control, seizure. MUSCULOSKELETAL: + muscle, back pain, joint pain or stiffness. HEMATOLOGIC: + anemia, bleeding or bruising. LYMPHATICS: No enlarged nodes. No history of splenectomy. PSYCHIATRIC: No history of depression or anxiety. ENDOCRINOLOGIC: No reports of sweating, cold or heat intolerance. No polyuria or polydipsia. ALLERGIES: No history of asthma, hives, eczema or rhinitis. Vital Signs Vital Signs Vital Signs: 07/02/22 16:08 07/02/22 16:16 07/02/22 16:16 Temperature 98.2 F Temperature Source Oral Pulse Rate 64 80 Respiratory Rate 18 22 H Respiratory Effort Normal Respiratory Pattern Normal Blood Pressure 108/72 105/86 H Blood Pressure Mean 84 92 Pulse Ox 92 94 Oxygen Delivery Method Room Air Room Air 07/02/22 16:37 07/02/22 16:37 Temperature Temperature Source Pulse Rate Respiratory Rate Respiratory Effort Respiratory Pattern Blood Pressure Blood Pressure Mean Pulse Ox 93 93 Oxygen Delivery Method Room Air Weight Weight: 286 lb 2.56 oz Body Mass Index (BMI) 33.0 Physical Exam Narrative Physical Examination: General: Awake, alert, oriented x 3 and cooperative, seated upright in the ED bed, fatigued and mildly ill appearing but able to make jokes, notes some improvements initially to presentation. Skin: Normal color, normal turgor, no icterus, no cyanosis except occasional staged ecchymoses. HEENT: AT/NC, EOMI, PERRLA, dry MM, no carotid bruits or JVD noted; however thick and neck makes evaluation difficult. Lungs: Diminished, greater left base to mid, appropriate effort, distant breath sounds given habitus, no rales, ronchi or wheezing. Heart: Irregular regular; no gallop, rub audible. Abdomen: Soft, obese, NTTP, ND, moderately hyperactive BS, no HSM. Extremities: No cyanosis, no clubbing, bilateral pedal to distal lay not markedly pitting but chronic edema present Neurological: Patient awake, alert, oriented as noted, cognitive function intact; pupils equally reactive to light and accommodation, cranial nerves II-XII grossly normal, moving all 4 extremities however significant chronic left-sided debilities with near hemiplegia and sensation deficits from underlying multiple sclerosis, strength severely global decreased given acute presentation underlying history. Psychiatric: Affect appears fatigued, ill-appearing, no acute evidence of depressive or anxiety feelings. Results Lab / Micro Data Result Diagrams: 07/02/22 16:25 07/02/22 16:25 Labs: Laboratory Results - last 24 hr 07/02/22 16:25: WBC 7.9, RBC 5.11, Hgb 14.8, Hct 44.9, MCV 87.9, MCH 29.0, MCHC 33.0, RDW Std Deviation 42.3, RDW Coeff of Bravo 13.1, Plt Count 200, MPV 9.5, Immature Gran % (Auto) 0.600, Neut % (Auto) 59.8, Lymph % (Auto) 26.4, [place] % (Auto) 11.3 H, Eos % (Auto) 1.5, Baso % (Auto) 0.4, Absolute Neuts (auto) 4.7, Absolute Lymphs (auto) 2.08, Nucleated RBC % 0 07/02/22 16:25: Sodium 145, Potassium 2.7 L*, Chloride 116 H, Carbon Dioxide 25.0, Anion Gap 4 L, BUN 15, Creatinine 0.82, Estim Creat Clear Calc 117.66, Est GFR (MDRD) Af Amer 121, Est GFR (MDRD) Non-Af 100, BUN/Creatinine Ratio 18.2, Glucose 87, Calcium 7.2 L, Troponin I High Sens 14 Micro: Microbiology 07/02/22 16:31 Nasal Secretion SARS-CoV-2 Antigen (Rapid) - Final Rhythm Strip Rhythm Strip: A-fib Rate: 117 Ectopy: None Radiology Impression Chest X-Ray 07/02/22 16:34 IMPRESSION: 1. Mild to moderate cardiomegaly without failure. 2. Prominently elevated left hemidiaphragm with air-filled splenic flexure of the colon beneath the left hemidiaphragm--this could result in the chest pain no splenic flexure syndrome. 3. Mild atelectatic changes in the left lower lobe adjacent to the elevated left hemidiaphragm. 4. No evidence of infiltrates, effusion, or pulmonary mass lesions. 5. Colonic ileus. Electronically Signed: Robb Lam MD at 17:26 EDT Reading Location ID and State: [facility] / [place] Tel , Service support , Assessment & Plan Assessment/Plan (1) Atrial fibrillation with rapid ventricular response: PLAN: Plan The patient is a 66 y/o M w/ PMHx: Obesity, BPH, PAF, JOSH on BIPAP q HS, Hx VTE (DVT, Saddle PE), HTN, HLD, Hx Bladder CA s/p resection and chemotherapy x 1 round following w/ Dr. Bernardo, Hx Syncope associated with orthostatic hypotension, Hx Recurrent UTIs, Multiple sclerosis with chronic severe left-sided hemiplegia/paresthesias who presents to the [facility] ED on 07/02/22 with history of ongoing progressively worsening fatigue, malaise, loose stools starting the prior Friday, Friday and Friday with some improvement with loose stools the day prior with no recent antibiotics, ongoing headache and dizziness on day of presentation with no recent fevers or chills however given his ongoing symptoms prompted ED evaluation. #1. Acute Encephalopathy, Unclear Exact Etiology with noted fatigue, malaise, headaches, diarrhea with progressive decline, failure to thrive adult complicated by underlying multiple sclerosis with chronic left-sided hemiplegia, Suspect Possible UTI versus Acute Viral Syndrome: We will admit to PCU given PAF with RVR concurrently noted upon presentation, maintain on fall and aspiration precautions, continue offloading and general care given left-sided debilities, will obtain stool culture as well as C. difficile if any recurrent diarrhea, to be cautious given timeline will obtain COVID PCR as well as respiratory full viral panel, urinalysis/urine culture request especially given history of frequent UTIs it certainly could be associated, procalcitonin is also been requested. #2. Paroxsymal atrial fibrillation with RVR: EKG in ED w/ atrial fibrillation w/ RVR upon arrival presentation with heart rate 120s. Will maintain on telemetry, obtain cardiac enzyme serial set, obtain magnesium level, obtain TSH level, continue anticoagulation with home apixaban regimen, in the ED given ongoing episodes of transitioned to IV Cardizem which will be continued. Most recent echocardiogram noted 05/12/2019 with EF 65%, stage I diastolic dysfunction, trivial TVI, RVSP 26 mmHg thus will request repeat. #3. Hypokalemia: Admission K+ 2.7, magnesium level requested, supplementation given, repeat level in AM. #4. Multiple sclerosis with chronic severe left-sided hemiplegia and decreased sensation: Patient routinely does not walk, will encourage positional changes, offloading, routine skin care, baseline patient is onocrelizuman, zanaflex, lisdexamfetamine. #5. Hypertension: Continue home regimen including lisinopril, restart coreg as able given cardizem IV as noted, holding HCTZ temporarily, with additional hold parameters as needed, PRN hydralazine. #6. Hyperlipidemia: We will continue patient on statin therapy #7. History of VTE, DVT/saddle PE: We will continue patient home apixaban regimen. #8. Anxiety and depression: We will continue patient home duloxetine regimen. #9. BPH: We will continue patient home Flomax regimen. #10. GERD: We will continue patient on PPI. #11. JOSH: BiPAP nightly. #12. Hx Bladder CA: s/p resection and chemotherapy x 1 round following w/ Dr. Bernardo, considered in remission. #13. DVT prophylaxis: SCDs, continue patient home apixaban regimen. #14. CODE status: Patient HCPOA and living will are currently being set up but will be his who is present and secondary his daughter who is also present. Discussed CODE status at length including difference between FULL code, DNR-CCA and DNR-CC status. Following discussions about the differences in these status, requested Full Code status. Advanced Care Planning Face to Face Time: 16 minutes. Charges/Coding Visit Charges Inpatient E&M: 49330 Init Hosp L3 Procedures Hospitalists Procedures: 03942 Advncd Care Plan 30 Min
--- NOTE | 2022-07-02 18:02 | CT_ITS ---
STUDY: CT BRAIN WITHOUT CONTRAST ENHANCEMENT 1838 HOURS ON 07/02/2022 REASON FOR EXAM: 66-year-old male on anticoagulants, who has developed a headache. RADIATION DOSAGE (If Supplied By Facility): CTDIvol = ( 44.99 ) mGy, DLP = ( 796.11 ) mGycm. TECHNIQUE: Transaxial CT imaging of the brain was performed without administration of intravenous contrast material. COMPARISON: 05/15/2021, which was normal. FINDINGS: There is no subdural, epidural, or intracerebral hematoma, hemorrhage or contusion. No mass lesions or infarcts. Normal pituitary and sella. Normal posterior fossa and brainstem. Normal calvarium and paranasal sinuses. CT/Brain/Head without Contrast IMPRESSION: 1. Normal unenhanced CT scan of the brain. 2. No subdural, epidural, or intracerebral hematoma, hemorrhage or contusion. 3. No infarcts or mass lesions. 4. Normal calvarium and paranasal sinuses. Electronically Signed: Robb Lam MD at 19:49 EDT ,
[2022-07-02] MEDS: Potassium Chloride Oral Tablet 20 MEQ 40 MEQ PO (18:16)
[2022-07-02] MEDS: dilTIAZem 25 MG/5 ML Vial IV BOLUS (18:16)
[2022-07-02 18:33] LABS: Reflex Troponin-HS? (from REC) Y
[2022-07-02] MEDS: Potassium Chloride 10mEq/100mL 10 MEQ/100 ML IV.SOLN. 100 MEQ IV BOLUS ×4 (18:41→23:06)
[2022-07-02 18:52] LABS: Magnesium 1.5 mg/dL (1.6-2.6)
[2022-07-02 19:47] LABS: Troponin-I HS 16 pg/mL (3.0-78.0)
[2022-07-02 20:08] LABS: Procalcitonin < 0.20 ng/mL (0.00-0.09)
[2022-07-02] MEDS: 0.9% Normal Saline 1,000 ML 100 ML IV (20:29)
[2022-07-02 20:50] LABS: Mucous, Urine 0 SEEN /hpf (<or=2+)
[2022-07-02 21:00] LABS: Color, Urine Yellow (Yellow); Glucose, Dipstick Normal (Normal); Ketone-Dipstick 5 mg/dl (Negative); Leukocyte Esterase-Dipstick 500 /ul (Negative); Nitrite-Dipstick Positive (Negative); Occult Blood-Urine 25 /ul (Negative); Protein-Dipstick 30 mg/dl (Negative); Specific Gravity, Urine 1.015 (1.002-1.030); Urine Bilirubin Dipstick Negative (Negative); Urine Clarity Cloudy (Clear); Urine Urobilinogen 1 mg/dl (Normal)
[2022-07-02 21:28] LABS: White Blood Cells 50-100 SEEN /hpf (0-5)
[2022-07-02 21:29] LABS: Amorphous Sediment 1+ PHOS; Bacteria 3+ /hpf (None Seen); Red Blood Cells-Urine 0-5 SEEN /hpf (0-5); Squamous Epithelial Cells - UA 5-10 SEEN /hpf (0-5)
[2022-07-02 21:36] LABS: Phosphorus 2.6 mg/dL (2.5-4.9)
[2022-07-02] MEDS: 0.9% Saline Lock 10 ML Syringe IV (21:52)
[2022-07-02] MEDS: DULoxetine Hcl 60 MG Capsule PO (22:28)
[2022-07-02] MEDS: APIXABAN 5 MG TABLET PO (22:28)
[2022-07-02] MEDS: Carvedilol 12.5 MG Tablet PO (22:29)
[2022-07-02] MEDS: Atorvastatin Calcium 10 MG Tablet PO (22:29)
[2022-07-02] MEDS: Potassium Chloride Oral Tablet 20 MEQ PO (22:29)
[2022-07-02] MEDS: Tamsulosin HCl 0.4 MG Capsule PO (22:29)
[2022-07-02 23:04] LABS: Troponin-I HS 17 pg/mL (3.0-78.0)
--- NOTE | 2022-07-02 23:24 | PN.HOSP_ITS ---
Hospitalist Note UA result reviewed. It is positive of LE and nitrite. WBC 15?100 cells, squamous epithelial cells 5-10, 3+ bacteria. Patient has a history of bladder cancer status postresection chemotherapy: The patient follows with Dr. Bernardo. Patient admitted with acute encephalopathy and paroxysmal A. fib with RVR. Probably acute encephalopathy, multiple etiologies, probably infectious/UTI and metabolic encephalopathy. History of multiple sclerosis chronic left-sided plegia. Empirically started on IV ceftriaxone. Urine culture is pending. Patient labs also shows severe hypokalemia, K2.7 magnesium 1.5. Potassium and magnesium are getting replaced. Microbiology Past 72 Hours 07/02/22 18:20 Mucosa - Nose Respiratory Panel (PCR) - Final 07/02/22 16:31 Nasal Secretion SARS-CoV-2 Antigen (Rapid) - Final Laboratory Results 07/02/22 16:25: WBC 7.9, RBC 5.11, Hgb 14.8, Hct 44.9, MCV 87.9, MCH 29.0, MCHC 33.0, RDW Std Deviation 42.3, RDW Coeff of Bravo 13.1, Plt Count 200, MPV 9.5, Immature Gran % (Auto) 0.600, Neut % (Auto) 59.8, Lymph % (Auto) 26.4, [place] % (Auto) 11.3 H, Eos % (Auto) 1.5, Baso % (Auto) 0.4, Absolute Neuts (auto) 4.7, Absolute Lymphs (auto) 2.08, Nucleated RBC % 0 07/02/22 16:25: Sodium 145, Potassium 2.7 L*, Chloride 116 H, Carbon Dioxide 25.0, Anion Gap 4 L, BUN 15, Creatinine 0.82, Estim Creat Clear Calc 117.66, Est GFR (MDRD) Af Amer 121, Est GFR (MDRD) Non-Af 100, BUN/Creatinine Ratio 18.2, Glucose 87, Calcium 7.2 L, Troponin I High Sens 14 07/02/22 18:20: COVID-19 (JOSH) Not Detected 07/02/22 18:20: Magnesium 1.5 L 07/02/22 18:20: Procalcitonin < 0.20 H 07/02/22 19:00: Troponin I High Sens 16 07/02/22 19:00: Phosphorus 2.6 07/02/22 20:30: Urine Color Yellow, Urine Clarity Cloudy, Urine pH 7.0, Ur Specific [place] 1.015, Urine Protein 30 H, Urine Glucose (UA) Normal, Urine Ketones 5 H, Urine Occult Blood 25 H, Urine Nitrite Positive H, Urine Bilirubin Negative, Urine Urobilinogen 1 H, Ur Leukocyte Esterase 500 H, Urine RBC 0-5 SEEN, Urine WBC 50-100 SEEN, Ur Squamous Epith Cells 5-10 SEEN, Amorphous Sediment 1+ PHOS, Urine Bacteria 3+, Urine Mucus 0 SEEN 07/02/22 22:30: Troponin I High Sens 17
[2022-07-03] VITALS (11 sets, daily range): BP systolic 102–124; BP diastolic 67–72; PULSE 68–102; RESP 17–18; TEMP 36.4–36.6; O2SAT 94–99
[2022-07-03] MEDS: Ceftriaxone 1 GM/50 ML BAG IV (00:02)
[2022-07-03] MEDS: Potassium Chloride 10mEq/100mL 10 MEQ/100 ML IV.SOLN. 100 MEQ IV BOLUS ×2 (00:08→01:13)
--- NOTE | 2022-07-03 05:55 | EKG12_ITS ---
Test Reason : DIZZINESS Blood Pressure : / mmHG Vent. Rate : 117 BPM Atrial Rate : 000 BPM P-R Int : 000 ms QRS Dur : 138 ms QT Int : 388 ms P-R-T Axes : 000 -47 113 degrees QTc Int : 541 ms Atrial fibrillation with rapid ventricular response Left axis deviation Left bundle branch block Abnormal ECG Confirmed by IDALIA WINCHESTER, JAIME ([id number]), editor managing director BRENDA VERMA ([id number]) on 07/05/2022 1:58:35 PM Referred By: Confirmed By:JAIME FRIEDMAN MD
[2022-07-03 06:12] LABS: Absolute Lymphocyte Count 2.02 X10^3/uL (0.83-4.51); Absolute Neutrophil Count 3.7 X10^3/uL (2.0-7.7); Basophil# 0.05 X10^3/uL; Basophil% 0.7 % (0-1); Eosinophil# 0.32 X10^3/uL; Eosinophils% 4.4 % (0-5); Hematocrit 47.9 % (40-54); Hemoglobin 15.9 g/dL (13.0-16.5); Lymphocyte # 2.02 X10^3/ul (0.83-4.51); Lymphocyte % 27.7 % (19-41); Mean Corp Hgb Conc 33.2 g/dL (32-36); Mean Corpuscular Hgb 29.6 pg (27.0-32.0); Mean Platelet Vol. 9.4 fl (6.2-12.0); Monocyte# 1.16 X10^3/uL; Monocyte% 15.9 % (0-10); NRBC Flagged by Analyzer 0 % (0-5); Neutrophil # 3.67 X10^3/uL (2.7-7.7); Neutrophil % 50.5 % (47-70); Platelet Count 200 K/mm3 (150-450); RBC Distribution Width CV 13.2 % (11.6-14.6); RBC Distribution Width SD 42.8 fl (35.1-43.9); Red Blood Count 5.38 M/mm3 (4.6-6.2); White Blood Count 7.3 K/mm3 (4.4-11.0)
[2022-07-03 06:54] LABS: ALB/GLOB Ratio 0.8 RATIO (0.9-2.4); AST(SGOT) 12 U/L (15-37); Alanine Aminotransfer ALT/SGPT 21 U/L (16-61); Albumin, Serum 2.8 g/dL (3.2-5.0); Alkaline Phosphatase 81 U/L (45-117); Anion Gap 3 (5-15); BUN 16 mg/dL (7-18); BUN/Creat Ratio 12.5 RATIO (10-20); Calcium,Total 8.9 mg/dL (8.5-10.1); Chloride 107 mmol/L (98-107); Creatinine, Serum 1.28 mg/dL (0.70-1.30); EST Glomerular Filtration Rate 60 mL/min (>60); Est Glom Filt Rate - Afr Amer 73 mL/min (>60); Estimated Creatinine Clearance 75.37 ml/min; Globulin 3.6 g/dL (2.2-4.2); Glucose 102 mg/dL (74-106); Potassium 3.9 mmol/L (3.5-5.1); Protein, Total 6.4 g/dL (6.4-8.2); Sodium Level 140 mmol/L (136-145); Thyroid Stim Hormone (TSH) 0.78 uIU/mL (0.358-3.74)
[2022-07-03 07:15] LABS: Magnesium 2.1 mg/dL (1.6-2.6)
[2022-07-03] MEDS: Cholecalciferol (Vit D3) 125 MCG CAPSULE (5,000 UNITS) PO (08:11)
[2022-07-03] MEDS: Pantoprazole Sodium 40 MG Tablet PO (08:11)
[2022-07-03] MEDS: Potassium Chloride Oral Tablet 20 MEQ PO (08:11)
[2022-07-03] MEDS: Multivitamins,Therapeutic Tablet 1 TABLET PO (08:12)
[2022-07-03] MEDS: Lisinopril 20 MG Tablet PO (08:12)
[2022-07-03] MEDS: APIXABAN 5 MG TABLET PO (08:12)
[2022-07-03] MEDS: Carvedilol 12.5 MG Tablet PO (08:12)
--- NOTE | 2022-07-03 08:35 | CPS ---
started by nursing
--- NOTE | 2022-07-03 10:47 | CASEMGMT ---
Pt is active with [facility] for PT. Pt/ state no need for any further HHC at this time or any further discharge planning/needs. RACHEAL order placed and Migdalia at [facility] aware of pt discharge. Obed JOHNSON CM
--- NOTE | 2022-07-03 11:00 | CASEMGMT ---
ELIZABETH PINEDA Face to Face with patient for initial transition planning/care coordination assessment. RN CM introduced self and role at [facility]. Patient lying in bed, alert and oriented, at bedside. Patient willing to participate in assessment and is able to answer all questions appropriately. Care providers, pharmacy, and demographics verified. Patient wishes to discharge home with resumption of HHC with [facility]. Patient states he has no further needs or concerns at this time. CM to follow for discharge planning needs that may arise. PCP: Alvaro Specialists: Az, Urologist; Kota, marketing development specialist; Kirill, neurologist; Last, machine cutter Preferred Pharmacy: [facility] Insurance: [employer] Prescription Benefit: yes Living Will/HPOA: in the process of completing with school age program teacher LNOK: Living Arrangements: Patient lives in a single story home with ramp to enter the home. assists patient with ADLs in the home. Transportation: DME/HHC: Patient has shower chair, hospital bed, mihaela, electric and manual wheelchair, Bipap, nebulizer, pulse ox, and slide board at home. Patient has been to TCU in the past. Patient is currently active with [facility] for PT and SW. Disposition Plan: Patient to discharge home with resumption of HHC, family support, and follow-up plans. Perla HARMAN, RN, CM
--- NOTE | 2022-07-03 11:02 | DS.PCM_ITS ---
Providers Date of Admission: 07/02/22 Date of Discharge: 07/03/22 Primary Care Physician: Dr. Robert John MD Reason For Visit: FPAF WITH RVR, ACUTE VIRAL SYNDROME Diagnosis Discharge Diagnosis (1) Atrial fibrillation with rapid ventricular response: Status: Acute Code(s): I48.91 - Unspecified atrial fibrillation Medications at Discharge Home Medications ocrelizumab 30 mg/mL intravenous solution (Ocrevus) 600 mg IV .COMPLEX multiple sclerosis 11/04/17 cholecalciferol (vitamin D3) 25 mcg (1,000 unit) tablet 5,000 unit PO DAILY supplement 05/28/18 multivitamin with folic acid 400 mcg tablet 1 tab PO DAILY supplement 05/28/18 pantoprazole 40 mg tablet,delayed release 40 mg PO DAILY reflux 12/01/19 lisdexamfetamine 50 mg capsule 50 mg PO DAILY MS 01/16/20 potassium citrate 15 mEq (1,620 mg) tablet,extended release 15 meq PO BID ##60 02/04/20 albuterol sulfate 2.5 mg/3 mL (0.083 %) solution for nebulization 2.5 mg (3 mL) inhalation Q4H PRN shortness of breath or wheezing #180 vials 01/17/21 lisinopril 20 mg tablet 20 mg PO DAILY 07/18/21 carvedilol 12.5 mg tablet (Coreg) 12.5 mg PO BID #180 tabs 10/01/21 apixaban 5 mg tablet 5 mg PO BID blood thinner #180 tabs 02/04/22 simvastatin 20 mg tablet 20 mg PO QHS cholesterol #90 tabs 05/01/22 duloxetine 60 mg capsule,delayed release 60 mg PO QHS nerve 07/02/22 hydrochlorothiazide 12.5 mg capsule 12.5 mg PO DAILY heart 07/02/22 meclizine 25 mg tablet 25 mg PO DAILY PRN Dizziness 07/02/22 tamsulosin 0.4 mg capsule 0.4 mg PO QHS 07/02/22 tizanidine 4 mg tablet 4 mg PO Q8H PRN muscles 07/02/22 cefdinir 300 mg capsule 300 mg PO BID #12 caps 07/03/22 Hospital Course Operations None Procedures None Summary of Care Provided Minutes Spent on Discharge: 38 Hospital Course: Mr. Barney is a 66-year-old white male with a history of multiple sclerosis who presented to the emergency department at [facility] on 07/02/2022 with weakness in his left upper and lower extremities. The patient on presentation reported that he had diarrhea on Friday, Friday, and Friday which has resolved but on the day of presentation he had a headache and complained of dizziness and had worsening weakness in his left side. At baseline he is not a mbulatory due to chronic left-sided weakness. The patient had a known history of paroxysmal atrial fibrillation with RVR and was in RVR on presentation and borderline hypotensive. It was felt that he was markedly dehydrated given his diarrhea and was initially given IV fluids. He unfortunately had no significant change in his exam following and he was given IV Cardizem as well as a second liter of fluid by the emergency department.Work-up in the ED included T98.2, heart rate 64, BP 108/72, respiratory rate 18, 92% on room air, CBC with WC 7.9, hemoglobin 14.8, platelets 200 without marked shift, BMP with potassium 2.7, chloride 116, troponin 14 otherwise BMP in the marked side calcium 7.2, rapid COVID antigen negative, chest x-ray with mild to moderate cardiomegaly without any evidence of overload, prominently elevated left hemidiaphragm with air- filled splenic flexure of the colon beneath the left hemidiaphragm, mild atelectatic changes in the left lower lobe adjacent to the elevated left hemidiaphragm with no obvious infiltrate, effusion no pulmonary mass lesion, evidence of colonic ileus, CT head obtained and preliminarily no obvious evidence of any acute findings but radiological read pending upon evaluation.? With his markedly low potassium and magnesium he was given boluses of both and his blood pressure significantly improved back to baseline with IV fluids. Again it was suspected that he was markedly dehydrated and had electrolyte disturbances related to his recent diarrhea. We do suspect he had a viral gastroenteritis which has since resolved. UA was obtained and was consistent with infection and therefore urine culture was sent and he was started on ceftri axone. On the morning of 07/03/2022 with a repeat potassium of 3.9 and a repeat magnesium level of 2.1. A thyroid level was obtained and found to be normal. He was feeling much improved on 07/03/2022 and anxious to go home. Given the resolution of his atrial fibrillation, his electrolyte abnormalities and returned to baseline with regards to his mental status we felt it was likely okay to go home as long as he did well with physical therapy and was at his baseline with regards to his function. He was evaluated by physical therapy and found to be at baseline and therefore we discharged him home with continued home health care which has already been established. We did send him with cefdinir 300 mg p.o. twice daily for another 6 days to treat complicated UTI in the setting of a male urinary tract infection. Cultures were pending on discharge and we will continue to monitor for sensitivities after discharge. Discharge diagnoses: Paroxysmal atrial fibrillation with RVR-resolved Acute metabolic toxic encephalopathy-resolved Hypokalemia-resolved Hypomagnesemia-resolved Acute worsening of chronic left-sided weakness-resolved History of multiple sclerosis with severe chronic left-sided weakness Hypertension Hyperlipidemia History of saddle PE/DVT BPH GERD JOSH History of bladder cancer status postresection and chemotherapy Anxiety Depression Physical Exam Narrative Patient states he feels much better and is back to his baseline. wants to make sure he is back to baseline as far as his mobility goes so she can help him adequately at home. Awaiting physical therapy to evaluate him as the patient has not really been out of bed yet. He is wheelchair to bed at home. Const alert, oriented x3, no apparent distress, healthy appearing and well nourished Constitutional Narrative: Obese, white male sitting up in bed, appears comfortable and nontoxic, is at the bedside General Appearance: cooperative, comfortable, well kempt and well developed Orientation / Consciousness: awake Exam Limitations: no limitations Nutritional Appearance: obese HEENT normocephalic, head/scalp atraumatic, hearing grossly normal bilaterally and moist oral mucous membranes HEENT Narrative: Mallampati 3, no thrush Eyes PERRL, EOMs intact bilaterally and conjunctivae normal Eyes Narrative: No scleral icterus Neck no lymphadenopathy, supple and no JVD Neck Narrative: Trachea midline, no thyroid enlargement Resp normal respiratory effort, no retractions, no use of accessory muscles and clear to auscultation bilaterally Resp Narrative: Slightly diminished in the bases bilaterally but no adventitious sounds noted Auscultation: Negative for crackles, rales, rhonchi or wheezes Cardio regular rate, regular rhythm, S1 normal heart sound, S2 normal heart sound, no murmurs, no rub, no gallops, no clicks and no JVD GI normal to inspection, nondistended, normoactive bowel sounds, soft to palpation, non-tender and non-distended; Negative for hepatosplenomegaly Extremity Extremity Narrative: Slight bilateral lower extremity edema likely related to his lack of mobility at baseline, no cyanosis or clubbing Skin no rashes or lesions noted, no wounds, skin turgor normal and no jaundice Neuro oriented x3 Neuro Narrative: Significant weakness especially in the bilateral lower extremities-neurological status is at baseline per discussion with patient and Sensorium / Orientation: awake, alert, oriented to person, oriented to place and oriented to time Speech: speech normal Psych affect normal Psych Narrative: Very pleasant and appropriately interactive Weight / BMI Weight Weight: 128.8 kg Body Mass Index (BMI) 32.8 ABG / Lab / Microbiology Data Result Diagrams: 07/03/22 05:45 07/03/22 05:45 Laboratory: Laboratory Results - last 24 hr 07/02/22 16:25: WBC 7.9, RBC 5.11, Hgb 14.8, Hct 44.9, MCV 87.9, MCH 29.0, MCHC 33.0, RDW Std Deviation 42.3, RDW Coeff of Bravo 13.1, Plt Count 200, MPV 9.5, Immature Gran % (Auto) 0.600, Neut % (Auto) 59.8, Lymph % (Auto) 26.4, [place] % (Auto) 11.3 H, Eos % (Auto) 1.5, Baso % (Auto) 0.4, Absolute Neuts (auto) 4.7, Absolute Lymphs (auto) 2.08, Nucleated RBC % 0 07/02/22 16:25: Sodium 145, Potassium 2.7 L*, Chloride 116 H, Carbon Dioxide 25.0, Anion Gap 4 L, BUN 15, Creatinine 0.82, Estim Creat Clear Calc 117.66, Est GFR (MDRD) Af Amer 121, Est GFR (MDRD) Non-Af 100, BUN/Creatinine Ratio 18.2, Glucose 87, Calcium 7.2 L, Troponin I High Sens 14 07/02/22 18:20: COVID-19 (JOSH) Not Detected 07/02/22 18:20: Magnesium 1.5 L 07/02/22 18:20: Procalcitonin < 0.20 H 07/02/22 19:00: Troponin I High Sens 16 07/02/22 19:00: Phosphorus 2.6 07/02/22 20:30: Urine Color Yellow, Urine Clarity Cloudy, Urine pH 7.0, Ur Specific [place] 1.015, Urine Protein 30 H, Urine Glucose (UA) Normal, Urine Ketones 5 H, Urine Occult Blood 25 H, Urine Nitrite Positive H, Urine Bilirubin Negative, Urine Urobilinogen 1 H, Ur Leukocyte Esterase 500 H, Urine RBC 0-5 SEEN, Urine WBC 50-100 SEEN, Ur Squamous Epith Cells 5-10 SEEN, Amorphous Sediment 1+ PHOS, Urine Bacteria 3+, Urine Mucus 0 SEEN 07/02/22 22:30: Troponin I High Sens 17 07/03/22 05:45: WBC 7.3, RBC 5.38, Hgb 15.9, Hct 47.9, MCV 89.0, MCH 29.6, MCHC 33.2, RDW Std Deviation 42.8, RDW Coeff of Bravo 13.2, Plt Count 200, MPV 9.4, Immature Gran % (Auto) 0.800, Neut % (Auto) 50.5, Lymph % (Auto) 27.7, [place] % (Auto) 15.9 H, Eos % (Auto) 4.4, Baso % (Auto) 0.7, Absolute Neuts (auto) 3.7, Absolute Lymphs (auto) 2.02, Nucleated RBC % 0 07/03/22 05:45: Sodium 140, Potassium 3.9, Chloride 107, Carbon Dioxide 30.0, Anion Gap 3 L, BUN 16, Creatinine 1.28, Estim Creat Clear Calc 75.37, Est GFR (MDRD) Af Amer 73, Est GFR (MDRD) Non-Af 60, BUN/Creatinine Ratio 12.5, Glucose 102, Calcium 8.9, Total Bilirubin 0.50, AST 12 L, ALT 21, Alkaline Phosphatase 81, Total Protein 6.4, Albumin 2.8 L, Globulin 3.6, Albumin/Globulin Ratio 0.8 L , TSH 0.78 07/03/22 05:45: Magnesium 2.1 Microbiology: Microbiology 07/02/22 18:20 Mucosa - Nose Respiratory Panel (PCR) - Final 07/02/22 16:31 Nasal Secretion SARS-CoV-2 Antigen (Rapid) - Final Radiography Diagnostic Testing: Radiology Impression Chest X-Ray 07/02/22 16:34 IMPRESSION: 1. Mild to moderate cardiomegaly without failure. 2. Prominently elevated left hemidiaphragm with air-filled splenic flexure of the colon beneath the left hemidiaphragm--this could result in the chest pain no splenic flexure syndrome. 3. Mild atelectatic changes in the left lower lobe adjacent to the elevated left hemidiaphragm. 4. No evidence of infiltrates, effusion, or pulmonary mass lesions. 5. Colonic ileus. Electronically Signed: Robb Lam MD at 17:26 EDT , Brain CT 07/02/22 18:02 IMPRESSION: 1. Normal unenhanced CT scan of the brain. 2. No subdural, epidural, or intracerebral hematoma, hemorrhage or contusion. 3. No infarcts or mass lesions. 4. Normal calvarium and paranasal sinuses. Electronically Signed: Robb Lam MD at 19:49 EDT , D/C Instructions Discharge Diet: Low fat / Low cholesterol Discharge Activity: Return to Normal Activity Meaningful Use Info Meaningful Use Diagnoses (Choose all that apply): None applicable Discharge Plan Admission Admit Date/Time: 07/02/22 18:02 Primary Reason for Your Visit: weakness and confusion Attending Provider: Faby Meehan Primary Care Provider: Robert John Consulting Providers: Anjelica Villa Discharge Orders/Prescriptions Prescriptions: New cefdinir 300 mg capsule 300 mg PO BID Qty: 12 0RF Continued ocrelizumab [Ocrevus] 30 mg/mL solution 600 mg IV .COMPLEX Label Comments: every 6 months Rx Instructions: every 6 months lisinopril 20 mg tablet 20 mg PO DAILY cholecalciferol (vitamin D3) 1,000 UNIT tablet 5,000 unit PO DAILY Label Comments: vitamin multivitamin with folic acid 1 TABLET tablet 1 tab PO DAILY Label Comments: vitamin pantoprazole 40 MG tablet 40 mg PO DAILY lisdexamfetamine 50 MG capsule 50 mg PO DAILY Label Comments: add potassium citrate 15 MEQ tablet extended release 15 meq PO BID Qty: 60 5RF tizanidine 4 mg tablet 4 mg PO Q8H PRN (Reason: muscles) Label Comments: TAKE ONE TABLET BY MOUTH EVERY 8 HOURS NEEDED FOR MUSCLE SPASMS meclizine 25 mg tablet 25 mg PO DAILY PRN (Reason: Dizziness) Label Comments: TAKE 1 TABLET BY MOUTH TWICE A DAY NEEDED hydrochlorothiazide 12.5 mg capsule 12.5 mg PO DAILY Label Comments: TAKE 1 CAPSULE BY MOUTH ONCE DAILY duloxetine 60 mg capsule,delayed release(DR/EC) 60 mg PO QHS Label Comments: TAKE 1 CAPSULE BY MOUTH EVERY DAY tamsulosin 0.4 mg capsule 0.4 mg PO QHS albuterol sulfate 2.5 mg /3 mL (0.083 %) solution for nebulization 2.5 mg INHALATION Q4H PRN (Reason: shortness of breath or wheezing) Qty: 180 6RF carvedilol [Coreg] 12.5 mg tablet 12.5 mg PO BID Qty: 180 3RF Rx Instructions: must administer with a meal/food apixaban 5 mg tablet 5 mg PO BID Qty: 180 6RF simvastatin 20 mg tablet 20 mg PO QHS Qty: 90 3RF Referrals / Follow Up: Robert John MD [Primary Care Provider] - Disposition Disposition (needs filled in before D/C Order can be placed): Home, Self Care Charges/Coding Visit Charges Inpatient E&M: 08021 [facility]
[2022-07-03] MEDS: LISDEXAMFETAMINE DIMESYLATE 50 MG CAPSULE PO (11:34)
--- NOTE | 2022-07-03 13:52 | PHA.DC.MC ---
Pharmacy Service has performed discharge medication reconciliation and counseling for this patient. 1. CEFDINIR 300MG PO BID X 6 DAYS The patient's discharge medication list was reviewed for discrepancies and discrepancies were resolved. Home Medications ocrelizumab 30 mg/mL intravenous solution (Ocrevus) 600 mg IV .COMPLEX multiple sclerosis 11/04/17 cholecalciferol (vitamin D3) 25 mcg (1,000 unit) tablet 5,000 unit PO DAILY supplement 05/28/18 multivitamin with folic acid 400 mcg tablet 1 tab PO DAILY supplement 05/28/18 pantoprazole 40 mg tablet,delayed release 40 mg PO DAILY reflux 12/01/19 lisdexamfetamine 50 mg capsule 50 mg PO DAILY MS 01/16/20 potassium citrate 15 mEq (1,620 mg) tablet,extended release 15 meq PO BID ##60 02/04/20 albuterol sulfate 2.5 mg/3 mL (0.083 %) solution for nebulization 2.5 mg (3 mL) inhalation Q4H PRN shortness of breath or wheezing #180 vials 01/17/21 lisinopril 20 mg tablet 20 mg PO DAILY 07/18/21 carvedilol 12.5 mg tablet (Coreg) 12.5 mg PO BID #180 tabs 10/01/21 apixaban 5 mg tablet 5 mg PO BID blood thinner #180 tabs 02/04/22 simvastatin 20 mg tablet 20 mg PO QHS cholesterol #90 tabs 05/01/22 duloxetine 60 mg capsule,delayed release 60 mg PO QHS nerve 07/02/22 hydrochlorothiazide 12.5 mg capsule 12.5 mg PO DAILY heart 07/02/22 meclizine 25 mg tablet 25 mg PO DAILY PRN Dizziness 07/02/22 tamsulosin 0.4 mg capsule 0.4 mg PO QHS 07/02/22 tizanidine 4 mg tablet 4 mg PO Q8H PRN muscles 07/02/22 cefdinir 300 mg capsule 300 mg PO BID #12 caps 07/03/22 The patient was counseled on the following discharge medications and changes in medications for homegoing were reviewed. The Reason for Use, instructions for use, and potential side effects were reviewed for all new medications. The patient's questions regarding all of their medications were answered. The patient was able to verbally demonstrate an understanding of their discharge medications.
--- NOTE | 2022-07-03 15:07 | CASEMGMT ---
Per therapy, pt is ok to go home with [facility]. SStaten RN CM
== END 2022-07-03 16:27 | disposition home or self-care (01) | DRG 640 ==
LOC: ED 18:13 → PCU 18:24
PROVIDERS: Internal Medicine; Admitting Provider Family Medicine; Emergency Provider Emergency Medicine; PCP Internal Medicine; Visit Provider Internal Medicine
DX: E86.0 Dehydration (principal); G81.94 Hemiplegia, unspecified affecting left nondominant side; G35 Multiple sclerosis; I48.0 Paroxysmal atrial fibrillation; G92.8 Other toxic encephalopathy; N39.0 Urinary tract infection, site not specified; R62.7 Adult failure to thrive; I95.9 Hypotension, unspecified; E87.6 Hypokalemia; E83.42 Hypomagnesemia; I10 Essential (primary) hypertension; E78.5 Hyperlipidemia, unspecified; K21.9 Gastro-esophageal reflux disease without esophagitis; G47.33 Obstructive sleep apnea (adult) (pediatric); F41.9 Anxiety disorder, unspecified; I44.7 Left bundle-branch block, unspecified; Z86.711 Personal history of pulmonary embolism; Z86.718 Personal history of other venous thrombosis and embolism; N40.0 Benign prostatic hyperplasia without lower urinary tract symptoms; Z85.51 Personal history of malignant neoplasm of bladder; F32.A Depression, unspecified; Z79.01 Long term (current) use of anticoagulants; Z79.899 Other long term (current) drug therapy; Z87.440 Personal history of urinary (tract) infections; E66.9 Obesity, unspecified; Z68.32 Body mass index [BMI] 32.0-32.9, adult; Z20.822 Contact with and (suspected) exposure to COVID-19
CPT/HCPCS: 36415; 70450; 71045; 80048; 80053; 81001; 83735; 84100; 84145; 84443; 84484; 85025; 87077; 87086; 87088; 87186; 87633; 87635; 87811; 93005; 94760; 94762; 96361; 96365; 96366; 96367; 96375; 97162; 97166; 99218; 99251; 99285; J7030; Q9957; A4216; G0378; G0463; U0003; U0005

== ENCOUNTER → 2022-07-09 | Outpatient (CLI) | payer MEDICARE, SELFPAY ==
[2022-07-09 10:20] LABS: AST(SGOT) 14 U/L (15-37); Alanine Aminotransfer ALT/SGPT 27 U/L (16-61); Albumin, Serum 3.1 g/dL (3.2-5.0); Alkaline Phosphatase 89 U/L (45-117); Bilirubin, Direct 0.13 mg/dL (0.00-0.30); Cholesterol 145 mg/dL (200); Globulin 3.7 g/dL (2.2-4.2); High Density Lipoprotein 46 mg/dL; Protein, Total 6.8 g/dL (6.4-8.2); Triglycerides 201 mg/dL; Very Low Density Lipoprotein 40 mg/dL (5-40)
== END | disposition home or self-care (01) ==
LOC: MTLAB 08:09
PROVIDERS: PCP Internal Medicine; Referring Provider Physician Assistant Medical; Visit Provider Physician Assistant Medical
DX: E78.5 Hyperlipidemia, unspecified (principal)
CPT/HCPCS: 36415; 80061; 80076

== ENCOUNTER → 2022-12-13 | Outpatient (CLI) | payer MEDICARE, SELFPAY ==
[2022-12-13 08:03] VITALS: BP 107/67; PULSE 90; RESP 16; TEMP 35.8; BMI 32.9
[2022-12-13] MEDS: 0.9% NaCl Peripheral Flush Adult/Peds IV (08:10)
[2022-12-13] MEDS: Acetaminophen 500 MG Tablet 1000 MG PO (08:29)
[2022-12-13] MEDS: DiphenhydrAMINE 50 MG/ML Syringe 25 MG IV (08:29)
[2022-12-13] MEDS: MethylPREDNISolone 125 MG/2 ML Vial 100 MG IV (08:36)
[2022-12-13] MEDS: Ocrelizumab 600mg Infusion 40 MG IV (09:09)
[2022-12-13 14:11] VITALS: BP 124/85; PULSE 95; RESP 16; TEMP 36.2; O2SAT 95
== END | disposition home or self-care (01) ==
LOC: MEDOUTP 07:52
PROVIDERS: PCP Internal Medicine; Referring Provider Psychiatry & Neurology Sleep Medicine; Visit Provider Psychiatry & Neurology Sleep Medicine
DX: G35 Multiple sclerosis (principal)
CPT/HCPCS: 96372; J7040; A4216; J2350

== ENCOUNTER 2023-04-02 10:13 | Outpatient (RCR) | payer MEDICARE, SELFPAY ==
--- NOTE | 2023-04-02 11:56 | HP.PTEVAL_ITS ---
Patient's Visit Information NERY MIDDLETON is a 67 year old M referred to Physical Therapy by Dr. Robert John MD with a diagnosis of MULTIPLE SCLEROSIS. Date of Evaluation: 04/02/23 Physical Therapist: Samm Fleming PT, Cert MDT, OCS - Visit Plan Frequency: 1 visist Plan: This patient will benefit from PMD to maximize function [employer] in home . Patient is mihaela lift for transfers ,unable to ambulate ,poor sitting balance ,dependent with transfers weakness right and absent left UE/LE . Patient is able to mange toggle switch right hand. PMD will significantly improve patient ability to participate in MRDL'S . Patient has then mental and physical capabilities to safely operate a power wheel chair. Patient expressed willingness to PMD in the home. - Subjective This 67 y/o male presents to physical therapy with multiple sclerosis for new power W/C. Patient has had MS since 1993 slow delcine progression . Patient uses w/c all day. Patient uses mihaela lift for transfers ,none ambulatory. Patient is defendant with bathing/dressing but able to do some self hygiene. Spouse does all cooking/cleaning and transportation. Spouse is primary care give. Lives in [facility] . Patient just sponge bath. Patient has hospital bed. Patient is incontinence. .Denies pain. Patient has paresthesia/tingling left arm leg. Patient has no h/o decubitus ulcers Patient goals needs to PMD. SOCAIL: who is primary home care nurse - Objective OBSERVATION: 6'6; and 280#. POSTURE: posterior pelvic tilt rounded shoulders. NEURO: c/o paresthesia/tingling left UE/LE ,touch intact ,reflexes 1/3 C5-6-7 ,L3-4,L4-5,L5-S1 ,flaccid left UE ,increase tone left UE. PALAPTION: unremarkable. EDEMA: 3+ pitted bilateral ankle BLE. AROM: left UE WFL ,PROM WFL LEFT LE/UE. PROM: supine knee flexion ~ 10 degrees hip flexion 95 degrees ,hip abduction 30 degrees,. MMT: LEFT UE/LE absent ,right UE grossly 3+/5 ,quads /hamstrings 3+/5 ,hip flexion 1/5.ankle ,DF 3+/5. TRANSFERS : dependent mihaela lift , max assist with bed moblity. MOBILITY: non ambulatory. SITTING BALANCE: POOR - Goals Goal 1:: Patient will benefit from Power wheelchair to maximize function. Goal Time Frame: 1visit - Rehabilitation Potential Physical Therapy Diagnosis: This patient will benefit from PMD to maximize function [employer] in home . Patient is mihaela lift for transfers ,unable to ambulate ,poor sitting balance ,dependent with transfers weakness right and absent left UE/LE . Patient is able to mange toggle switch right hand. PMD will significantly improve patient ability to participate in MRDL'S . Patient has then mental and physical capabilities to safely operate a power wheel chair. Patient expressed willingness to PMD in the home. Rehabilitation Potential: Fair - Anticipated Interventions Patient/Client Instruction: Educate patient on: Condition, Plan of Care For the Purpose of:: Other Other: pmd Thank you for the opportunity to evaluate your patient. For Medicare and Medicare HMO plans, please review the plan of care and approve it. It will need to be FAXED BACK to us at [phone] for Medicare purposes. For Medicare only, by signing this I certify the plan of care. Please let me know if there are questions or concerns regarding this plan of care. Physician Signature: Date:
== END 2023-04-02 19:00 | disposition home or self-care (01) ==
LOC: PT 10:13
PROVIDERS: PCP Internal Medicine; Referring Provider Internal Medicine; Visit Provider Internal Medicine
DX: G35 Multiple sclerosis (principal)
CPT/HCPCS: 97163

== ENCOUNTER 2023-06-13 07:44 | Outpatient (CLI) | payer MEDICARE, SELFPAY ==
[2023-06-13] MEDS: 0.9% NaCl Peripheral Flush Adult/Peds IV (08:06)
[2023-06-13] MEDS: 0.9% NaCl IVPB Med Flush (250 mL) 15 ML IV (08:06)
[2023-06-13] MEDS: Acetaminophen 500 MG Tablet 1000 MG PO (08:07)
[2023-06-13] MEDS: MethylPREDNISolone 125 MG/2 ML Vial 100 MG IV (08:07)
[2023-06-13] MEDS: DiphenhydrAMINE 50 MG/ML Syringe 25 MG IV (08:10)
[2023-06-13 08:15] VITALS: BP 116/34; PULSE 92; RESP 16; TEMP 35.8; O2SAT 94; BMI 33.5
[2023-06-13] MEDS: Ocrelizumab 600mg Infusion 40 MG IV (08:50)
[2023-06-13 13:48] VITALS: BP 119/75; PULSE 99; RESP 16; TEMP 36.1; O2SAT 93
== END 2023-06-13 07:45 | disposition home or self-care (01) ==
PROVIDERS: PCP Internal Medicine; Referring Provider Psychiatry & Neurology Sleep Medicine; Visit Provider Psychiatry & Neurology Sleep Medicine
DX: G35 Multiple sclerosis (principal)
CPT/HCPCS: 96375; 96365; 96366; J7040; J7050; A4216; J2350

== ENCOUNTER → 2023-06-26 | Outpatient (CLI) | payer MEDICARE, SELFPAY ==
[2023-06-26 10:55] LABS: AST(SGOT) 13 U/L (15-37); Alanine Aminotransfer ALT/SGPT 21 U/L (16-61); Albumin, Serum 3.2 g/dL (3.2-5.0); Alkaline Phosphatase 104 U/L (45-117); Bilirubin, Direct 0.18 mg/dL (0.00-0.30); Cholesterol 151 mg/dL (200); High Density Lipoprotein 52 mg/dL; Protein, Total 7.2 g/dL (6.4-8.2); Triglycerides 166 mg/dL; Very Low Density Lipoprotein 33 mg/dL (5-40)
== END | disposition home or self-care (01) ==
LOC: MTLAB 09:00
PROVIDERS: PCP Internal Medicine; Visit Provider Internal Medicine Cardiovascular Disease
DX: E78.5 Hyperlipidemia, unspecified (principal)
CPT/HCPCS: 36415; 80061; 80076

== ENCOUNTER 2023-07-29 01:55 | Inpatient (IN) | payer MEDICARE, SELFPAY ==
[2023-07-29] VITALS (20 sets, daily range): BP systolic 73–123; BP diastolic 45–77; PULSE 51–79; RESP 10–20; TEMP 36.1–37; O2SAT 88–97; BMI 36.8; BMI 37.1; BMI 37.2
--- NOTE | 2023-07-29 02:24 | RAD_ITS ---
STUDY: X-RAY CHEST REASON FOR EXAM: Male, 68 years old. Dyspnea TECHNIQUE: Single AP portable view of the chest. COMPARISON: July 02, 2022 chest x-ray FINDINGS: There is a hazy appearance of the left lung base. There is persistent elevation of the left hemidiaphragm. There is mild cardiac enlargement. Normal mediastinum and romi. Normal visualized pulmonary arteries. Normal visualized aortic arch and descending thoracic aorta. Normal visualized thoracic spine. Normal visualized ribs, clavicles, and shoulders. There are gaseous distended loops of bowel in the upper abdomen. RAD/Chest 1 View (Portable) IMPRESSION: Findings suspicious for left lower lobe consolidation and/or effusion. Gassy distended appearing bowel loops. Electronically Signed: Risa Silverio MD at 3:25 EDT ,
[2023-07-29 02:36] LABS: Absolute Lymphocyte Count 1.55 X10^3/uL (0.83-4.51); Absolute Neutrophil Count 5.9 X10^3/uL (2.0-7.7); Basophil# 0.05 X10^3/uL; Basophil% 0.6 % (0-1); Eosinophil# 0.12 X10^3/uL; Eosinophils% 1.4 % (0-5); Hematocrit 46.7 % (40-54); Hemoglobin 14.2 g/dL (13.0-16.5); Lymphocyte # 1.55 X10^3/ul (0.83-4.51); Lymphocyte % 18.1 % (19-41); Mean Corp Hgb Conc 30.4 g/dL (32-36); Mean Corpuscular Hgb 27.2 pg (27.0-32.0); Mean Corpuscular Volume 89.3 fL (80-94); Mean Platelet Vol. 9.6 fl (6.2-12.0); Monocyte# 0.89 X10^3/uL; Monocyte% 10.4 % (0-10); NRBC Flagged by Analyzer 0 % (0-5); Neutrophil # 5.87 X10^3/uL (2.7-7.7); Neutrophil % 68.8 % (47-70); Platelet Count 141 K/mm3 (150-450); RBC Distribution Width CV 15.5 % (11.6-14.6); Red Blood Count 5.23 M/mm3 (4.6-6.2); White Blood Count 8.5 K/mm3 (4.4-11.0)
[2023-07-29] MEDS: 0.9% Normal Saline 1,000 ML 999 ML IV ×2 (02:40→03:29)
[2023-07-29] MEDS: Hydrocortisone Sod Succinate 100 MG/2 ML Vial IV (02:40)
[2023-07-29 02:45] LABS: Mucous, Urine 0 SEEN /hpf (<or=2+)
[2023-07-29 02:48] LABS: Color, Urine Brown (Yellow); Glucose, Dipstick Normal (Normal); Ketone-Dipstick Negative (Negative); Leukocyte Esterase-Dipstick 500 /ul (Negative); Nitrite-Dipstick Negative (Negative); Occult Blood-Urine 150 /ul (Negative); Protein-Dipstick 100 mg/dl (Negative); Urine Clarity Cloudy (Clear); Urine Urobilinogen 8 mg/dl (Normal)
[2023-07-29 02:51] LABS: Anion Gap 5 (5-15); BUN 24 mg/dL (7-18); BUN/Creat Ratio 12.3 RATIO (10-20); Calcium,Total 8.2 mg/dL (8.5-10.1); Chloride 109 mmol/L (98-107); Creatinine, Serum 1.95 mg/dL (0.70-1.30); EST Glomerular Filtration Rate 37 mL/min (>60); Est Glom Filt Rate - Afr Amer 45 mL/min (>60); Estimated Creatinine Clearance 48.17 ml/min; Glucose 176 mg/dL (74-106); Potassium 4.5 mmol/L (3.5-5.1); Sodium Level 140 mmol/L (136-145)
[2023-07-29 03:02] LABS: Bacteria 4+ /hpf (None Seen); Red Blood Cells-Urine 5-10 SEEN /hpf (0-5); Squamous Epithelial Cells - UA 0-5 SEEN /hpf (0-5); Urine Bilirubin Dipstick 3 mg/dL (Negative); White Blood Cells 50-100 SEEN /hpf (0-5)
[2023-07-29 03:04] LABS: Lactic Acid 1.9 mmol/L (0.4-1.9)
--- NOTE | 2023-07-29 03:54 | ED.RN ---
ONE BAG OF FLUID GIVEN VIA EMS, PER DR TOBIAS, WOULD LIKE PT TO HAVE TWO ADDITIONAL BAGS EQUALLY 3L TOTAL FOR FLUID RESUSCITATION BASED ON VITALS.
--- NOTE | 2023-07-29 04:16 | EX.ED.DYSGE1 ---
HPI History of Present Illness Chief Complaint: Dizziness Informant: patient, spouse/S.O. and family Narrative Narrative: Patient is a 68-year-old male with past medical history of multiple sclerosis leaving his left side paralyzed. He also has history of hypertension hyperlipidemia. He uses a CPAP at night but denies any need for supplemental oxygen. Patient had bouts of diarrhea this evening and once he was up began having increased shortness of breath and feeling unwell. Family and patient state he has a history of UTIs and has gone uroseptic multiple times and with concern for this he was brought in for evaluation. [facility] Medical History Abnormal EKG Atrial septal defect Bladder cancer Chronic anticoagulation Hx of multiple sclerosis Hyperlipidemia Hypertension Kidney stones Multiple sclerosis Obstructive sleep apnea Paroxysmal atrial fibrillation Pulmonary embolism Recurrent UTI Syncope due to orthostatic hypotension Home Medications ocrelizumab 30 mg/mL intravenous solution (Ocrevus) 600 mg IV .COMPLEX multiple sclerosis 11/04/17 [History Last Taken 05/24/22] cholecalciferol (vitamin D3) 25 mcg (1,000 unit) tablet 5,000 unit PO DAILY supplement 05/28/18 [History Last Taken 07/01/22] multivitamin with folic acid 400 mcg tablet 1 tab PO DAILY supplement 05/28/18 [History Last Taken 07/01/22] pantoprazole 40 mg tablet,delayed release 40 mg PO DAILY reflux 12/01/19 [History Last Taken 07/02/22] potassium citrate 15 mEq (1,620 mg) tablet,extended release 15 meq PO BID ##60 02/04/20 [Rx Last Taken 07/02/22] albuterol sulfate 2.5 mg/3 mL (0.083 %) solution for nebulization 2.5 mg (3 mL) inhalation Q4H PRN shortness of breath or wheezing #180 vials 01/17/21 [Rx Last Taken Unknown] lisinopril 20 mg tablet 20 mg PO DAILY 07/18/21 [History Last Taken 07/01/22] duloxetine 60 mg capsule,delayed release 60 mg PO QHS nerve 07/02/22 [History Last Taken 07/01/22] meclizine 25 mg tablet 25 mg PO DAILY PRN Dizziness 07/02/22 [History Last Taken 07/02/22] tamsulosin 0.4 mg capsule 0.4 mg PO QHS 07/02/22 [History Last Taken 07/01/22] tizanidine 4 mg tablet 4 mg PO Q8H PRN muscles 07/02/22 [History Last Taken 2 Weeks Ago ~06/18/22] carvedilol 12.5 mg tablet (Coreg) 12.5 mg PO BID #180 tabs 11/08/22 [Rx Last Taken Unknown] apixaban 5 mg tablet 5 mg PO BID blood thinner #180 tabs 05/15/23 [Rx Last Taken Unknown] simvastatin 20 mg tablet 20 mg PO QHS 07/02/23 [History Last Taken Unknown] furosemide 40 mg tablet (Lasix) 40 mg PO DAILY #90 tabs 07/03/23 [Rx Last Taken Unknown] lisdexamfetamine 50 mg capsule 50 mg PO DAILY MS 07/03/23 [History Last Taken Unknown] sodium bicarbonate 650 mg tablet 650 mg PO BID 07/03/23 [History Last Taken Unknown] Allergy/AdvReac Type Severity Reaction Status Date / Time No Known Allergies Allergy Verified 07/03/23 08:59 Family History Father CAD (coronary artery disease) Hypertension Myocardial infarction Mother Hypertension Sister Multiple sclerosis Surgical History History of bladder surgery History of lithotripsy History of vasectomy S/P ureteral stent placement Social History household members: spouse and family Smoking Status: Never smoker alcohol intake: never substance use type: does not use caffeine: Yes (very little) ROS ROS ED Constitutional Constitutional ED: Denies chills or fever(s) ENT ENT ED: Denies sore throat Cardiovascular Cardiovascular: Denies chest pain, palpitations or racing heartbeat Respiratory/Chest Respiratory/Chest: Reports dyspnea; Denies cough Gastrointestinal Gastrointestinal: Reports diarrhea; Denies abdominal pain, nausea or vomiting Genitourinary Genitourinary ED: Denies dysuria Musculoskeletal Musculoskeletal: Denies myalgias Integumentary Denies rash Neurologic Neurologic: Reports weakness; Denies headache(s) Hematologic/Lymphatic Hematologic/Lymphatic: Reports easy bleeding and easy bruising EXAM Physical Exam Const Vital Signs: 07/29/23 01:57 07/29/23 02:00 07/29/23 02:00 Temperature 98.2 F 98.2 F 98.2 F Temperature Source Temporal Temporal Temporal Pulse Rate 79 79 78 Respiratory Rate 16 20 H 17 Respiratory Effort Respiratory Pattern Blood Pressure 78/50 L 73/45 L 73/45 L Blood Pressure Mean 59 54 54 Pulse Ox 88 90 92 Oxygen Delivery Method Room Air Nasal Cannula Nasal Cannula Oxygen Flow Rate (L/min) 5 5 07/29/23 02:23 07/29/23 02:47 07/29/23 03:00 Temperature 98.2 F Temperature Source Temporal Pulse Rate 73 70 Respiratory Rate 17 16 Respiratory Effort Short of Breath Respiratory Pattern Tachypnea Blood Pressure 81/45 L 86/59 L Blood Pressure Mean 57 68 Pulse Ox 93 93 Oxygen Delivery Method Nasal Cannula Nasal Cannula Oxygen Flow Rate (L/min) 3 4 07/29/23 03:00 07/29/23 04:32 Temperature 98.6 F Temperature Source Temporal Pulse Rate 71 69 Respiratory Rate 16 18 Respiratory Effort Respiratory Pattern Blood Pressure 86/59 L 103/62 Blood Pressure Mean 68 75 Pulse Ox 94 92 Oxygen Delivery Method Nasal Cannula Nasal Cannula Oxygen Flow Rate (L/min) 4 3 Positive well nourished, well developed and obese General Appearance ED: well developed Nutritional Appearance: obese HEENT Reports dry mucous membranes HEENT Narrative: No tongue or lip swelling no oral lesions no airway edema or compromise. No signs of infection in the posterior pharynx Mouth ED: Yes dry mucous membranes Mouth: dry mucous membranes Eyes PERRL and EOMs intact bilaterally General Eye ED: Negative for pale conjunctiva Neck supple and no JVD Neck Narrative: No nuchal rigidity or meningeal signs noted Resp normal respiratory effort Resp Narrative: Breath sounds are diminished throughout with rhonchi noted in bilateral bases Cardio regular rate and regular rhythm GI normal to inspection, nondistended, normoactive bowel sounds, non-tender, non-distended and no masses GI Narrative: No voluntary guarding or rigidity no pulsatile mass Auscultation: normoactive bowel sounds Palpation: soft Extremity Extremity Narrative: +2 pitting edema to the bilateral lower extremities that is equal and symmetric with negative Homans' sign Neuro oriented x3 and CN's II-XII intact bilaterally Neuro Narrative: Patient has inability to move the left side secondary to MS which is chronic in nature Sensorium / Orientation: alert Psych mental status grossly normal Skin Skin Narrative: Patient has superficial abrasions to the shins of the bilateral lower legs without secondary changes to suggest infection General Skin Exam: Negative for jaundice MDM MDM MDM Narrative Medical decision making narrative: Patient presented to the ER hypotensive but otherwise awake alert and afebrile. He also had a room air pulse ox of 86 to 88% and reportedly does not need supplemental oxygen at home. With the hypotension there is concern patient is developing sepsis so he was ordered 2 L of IV saline and this will be given on top the 1 L provided by EMS to take him to a total of 3 L. He was also started on vancomycin and Zosyn secondary to concern for systemic infection. Differential diagnosis is for UTI versus pneumonia versus COVID versus acute blood loss anemia. Blood work revealed elevation to his creatinine from baseline consistent with acute kidney injury. However his H&H was stable going against need for transfusion and his white count and lactic acid are also normal. Urine showed changes consistent with infection and therefore the urine was sent for culture. The patient's chest x-ray questioned developing pneumonia but he also was positive for COVID indicating this is most likely viral. Patient's blood pressure was improving with IV fluid and therefore do not feel the need for a central line or IV pressor medication. However because of the patient's multiple medical comorbidities and the fact he was hypotensive upon arrival I do feel that his best treatment option is admission to ensure that he responds to antibiotics regarding the UTI and the COVID is not lead to respiratory failure. Medicine was contacted secondary to this and they do agree to accept the patient at this time History & Record Review Discussion w/independent historian: Patient and Family Lab Data Attestation: I reviewed the patient's lab results. Labs: Laboratory Results - last 24 hr 07/29/23 07/29/23 02:10 02:35 WBC 8.5 RBC 5.23 Hgb 14.2 Hct 46.7 MCV 89.3 MCH 27.2 MCHC 30.4 L RDW Std Deviation 51.0 H RDW Coeff of Bravo 15.5 H Plt Count 141 L MPV 9.6 Immature Gran % (Auto) 0.700 Neut % (Auto) 68.8 Lymph % (Auto) 18.1 L [place] % (Auto) 10.4 H Eos % (Auto) 1.4 Baso % (Auto) 0.6 Absolute Neuts (auto) 5.9 Absolute Lymphs (auto) 1.55 Nucleated RBC % 0 Sodium 140 Potassium 4.5 Chloride 109 H Carbon Dioxide 26.0 Anion Gap 5 BUN 24 H Creatinine 1.95 H Estim Creat Clear Calc 48.17 Est GFR (MDRD) Af Amer 45 L Est GFR (MDRD) Non-Af 37 L BUN/Creatinine Ratio 12.3 Glucose 176 H Lactic Acid 1.9 Calcium 8.2 L Urine Color Brown Urine Clarity Cloudy Urine pH 7.[address] 1.010 Urine Protein 100 H Urine Glucose (UA) Normal Urine Ketones Negative Urine Occult Blood 150 H Urine Nitrite Negative Urine Bilirubin 3 H Urine Urobilinogen 8 H Ur Leukocyte Esterase 500 H Urine RBC 5-10 SEEN Urine WBC 50-100 SEEN Ur Squamous Epith Cells 0-5 SEEN Urine Bacteria 4+ Urine Mucus 0 SEEN Radiography Diagnostic Testing: Clinical Impression(s) from Imaging Studies Chest X-Ray 07/29/23 02:24 IMPRESSION: Findings suspicious for left lower lobe consolidation and/or effusion. Gassy distended appearing bowel loops. Electronically Signed: Risa Silverio MD at 3:25 EDT Reading Location ID and State: [facility] / [place] Tel , Service support , Chest x-ray as interpreted by the emergency medicine physician reveals chronic elevation of the left hemidiaphragm with atelectasis versus developing pneumonia in the left lower lobe Management Discussion w/another healthcare provider: Hospitalist Critical Care Time Critical Care Time: Yes Critical care time (excluding procedures): Discussing w/Patient &/or Family/Disease Intervention Specialist, Discussing w/Consultants and - (Please note critical care time of 33 minutes) Discharge Plan Dx/Rx/DC Orders Clinical Impression: Urinary tract infection, COVID-19, Hypoxia, Hypotension Disposition Disposition: Acute Care Hospital [facility] Discharge Date/Time: 07/29/23 04:58
--- NOTE | 2023-07-29 04:23 | PCM.HP.STD ---
[facility] - General General Date of Admission: 07/29/23 Date of Service: 07/29/23 Chief Complaint: Dizziness HPI Narrative NERY MIDDLETON, is a 68 M who presents to the emergency room with chief complaint of dizziness. Onset of symptoms began last Friday with mostly experiencing headache and some fatigue. Over the past 24 hours patient is become more dizzy and lightheaded. Patient currently denies any nausea or vomiting or diarrhea. He does have significant past medical history of MS. Laboratory studies are remarkable for a positive COVID-19 test as well as increased creatinine 1.95 from his baseline of 1.2. Patient has a positive urinalysis for UTI and has been having difficulty maintaining his blood pressure here. He has received over 2 boluses of normal saline and continues to have blood pressures in the 80/50 range, however, when I evaluated the patient he currently had a blood pressure 100/60 and was feeling more comfortable and less dizzy. [facility] Medical History Abnormal EKG Atrial septal defect Bladder cancer Chronic anticoagulation Hx of multiple sclerosis Hyperlipidemia Hypertension Kidney stones Multiple sclerosis Obstructive sleep apnea Paroxysmal atrial fibrillation Pulmonary embolism Recurrent UTI Syncope due to orthostatic hypotension Home Medications ocrelizumab 30 mg/mL intravenous solution (Ocrevus) 600 mg IV .COMPLEX multiple sclerosis 11/04/17 [History Last Taken 05/24/22] cholecalciferol (vitamin D3) 25 mcg (1,000 unit) tablet 5,000 unit PO DAILY supplement 05/28/18 [History Last Taken 07/01/22] multivitamin with folic acid 400 mcg tablet 1 tab PO DAILY supplement 05/28/18 [History Last Taken 07/01/22] pantoprazole 40 mg tablet,delayed release 40 mg PO DAILY reflux 12/01/19 [History Last Taken 07/02/22] potassium citrate 15 mEq (1,620 mg) tablet,extended release 15 meq PO BID ##60 02/04/20 [Rx Last Taken 07/02/22] albuterol sulfate 2.5 mg/3 mL (0.083 %) solution for nebulization 2.5 mg (3 mL) inhalation Q4H PRN shortness of breath or wheezing #180 vials 01/17/21 [Rx Last Taken Unknown] lisinopril 20 mg tablet 20 mg PO DAILY 07/18/21 [History Last Taken 07/01/22] duloxetine 60 mg capsule,delayed release 60 mg PO QHS nerve 07/02/22 [History Last Taken 07/01/22] meclizine 25 mg tablet 25 mg PO DAILY PRN Dizziness 07/02/22 [History Last Taken 07/02/22] tamsulosin 0.4 mg capsule 0.4 mg PO QHS 07/02/22 [History Last Taken 07/01/22] tizanidine 4 mg tablet 4 mg PO Q8H PRN muscles 07/02/22 [History Last Taken 2 Weeks Ago ~06/18/22] carvedilol 12.5 mg tablet (Coreg) 12.5 mg PO BID #180 tabs 11/08/22 [Rx Last Taken Unknown] apixaban 5 mg tablet 5 mg PO BID blood thinner #180 tabs 05/15/23 [Rx Last Taken Unknown] simvastatin 20 mg tablet 20 mg PO QHS 07/02/23 [History Last Taken Unknown] furosemide 40 mg tablet (Lasix) 40 mg PO DAILY #90 tabs 07/03/23 [Rx Last Taken Unknown] lisdexamfetamine 50 mg capsule 50 mg PO DAILY MS 07/03/23 [History Last Taken Unknown] sodium bicarbonate 650 mg tablet 650 mg PO BID 07/03/23 [History Last Taken Unknown] Allergy/AdvReac Type Severity Reaction Status Date / Time No Known Allergies Allergy Verified 07/03/23 08:59 Family History Father CAD (coronary artery disease) Hypertension Myocardial infarction Mother Hypertension Sister Multiple sclerosis Surgical History History of bladder surgery History of lithotripsy History of vasectomy S/P ureteral stent placement Social History (Updated 07/03/23 @ 09:01 by Jil Forte) household members: spouse and family Smoking Status: Never smoker alcohol intake: never substance use type: does not use caffeine: Yes (very little) ROS ROS Narrative Positive low-grade headache Constitutional Constitutional: Reports chills, fatigue and fever(s) Eyes Eyes: Denies change in vision ENT HEENT: Denies abnormal hearing Cardiovascular Cardiovascular: Denies chest pain Respiratory/Chest Respiratory/Chest: Denies shortness of breath at rest Gastrointestinal Gastrointestinal: Denies abdominal pain Genitourinary Genitourinary: Reports dysuria Musculoskeletal Musculoskeletal: Denies back pain Integumentary Integumentary: Denies dry skin Neurologic Neurologic: Reports dizziness; Denies abnormal speech Psychiatric Psychiatric: Denies anxiety Hematologic/Lymphatic Hematologic/Lymphatic: Denies anemia Vital Signs Vital Signs Vital Signs: 07/29/23 01:57 07/29/23 02:00 07/29/23 02:00 Temperature 98.2 F 98.2 F 98.2 F Temperature Source Temporal Temporal Temporal Pulse Rate 79 79 78 Respiratory Rate 16 20 H 17 Respiratory Effort Respiratory Pattern Blood Pressure 78/50 L 73/45 L 73/45 L Blood Pressure Mean 59 54 54 Pulse Ox 88 90 92 Oxygen Delivery Method Room Air Nasal Cannula Nasal Cannula Oxygen Flow Rate (L/min) 5 5 07/29/23 02:23 07/29/23 02:47 07/29/23 03:00 Temperature 98.2 F Temperature Source Temporal Pulse Rate 73 70 Respiratory Rate 17 16 Respiratory Effort Short of Breath Respiratory Pattern Tachypnea Blood Pressure 81/45 L 86/59 L Blood Pressure Mean 57 68 Pulse Ox 93 93 Oxygen Delivery Method Nasal Cannula Nasal Cannula Oxygen Flow Rate (L/min) 3 4 07/29/23 03:00 Temperature Temperature Source Pulse Rate 71 Respiratory Rate 16 Respiratory Effort Respiratory Pattern Blood Pressure 86/59 L Blood Pressure Mean 68 Pulse Ox 94 Oxygen Delivery Method Nasal Cannula Oxygen Flow Rate (L/min) 4 Weight Weight: 318 lb 5.56 oz Body Mass Index (BMI) 36.8 Physical Exam Const alert, oriented x3 and no apparent distress General Appearance: cooperative HEENT normocephalic and head/scalp atraumatic Eyes PERRL and EOMs intact bilaterally Neck no lymphadenopathy Lymph Lymphatic: no lymphadenopathy noted Resp normal respiratory effort, normal air movement and clear to auscultation bilaterally Cardio regular rate, regular rhythm, S1 normal heart sound and S2 normal heart sound GI normal to inspection, nondistended, normoactive bowel sounds, soft to palpation and non-tender Extremity normal capillary refill Skin General Skin Exam: no breakdown Neuro no focal motor deficits and no sensory deficits noted Psych thought process normal Results Lab / Micro Data 07/29/23 02:10 07/29/23 02:10 Labs: Laboratory Results - last 24 hr 07/29/23 02:10: WBC 8.5, RBC 5.23, Hgb 14.2, Hct 46.7, MCV 89.3, MCH 27.2, MCHC 30.4 L, RDW Std Deviation 51.0 H, RDW Coeff of Bravo 15.5 H, Plt Count 141 L, MPV 9.6, Immature Gran % (Auto) 0.700, Neut % (Auto) 68.8, Lymph % (Auto) 18.1 L, [place] % (Auto) 10.4 H, Eos % (Auto) 1.4, Baso % (Auto) 0.6, Absolute Neuts (auto) 5.9, Absolute Lymphs (auto) 1.55, Nucleated RBC % 0, Sodium 140, Potassium 4.5, Chloride 109 H, Carbon Dioxide 26.0, Anion Gap 5, BUN 24 H, Creatinine 1.95 H, Estim Creat Clear Calc 48.17, Est GFR (MDRD) Af Amer 45 L, Est GFR (MDRD) Non-Af 37 L, BUN/Creatinine Ratio 12.3, Glucose 176 H, Lactic Acid 1.9, Calcium 8.2 L 07/29/23 02:35: Urine Color Brown, Urine Clarity Cloudy, Urine pH 7.0, Ur Specific [place] 1.010, Urine Protein 100 H, Urine Glucose (UA) Normal, Urine Ketones Negative, Urine Occult Blood 150 H, Urine Nitrite Negative, Urine Bilirubin 3 H, Urine Urobilinogen 8 H, Ur Leukocyte Esterase 500 H, Urine RBC 5-10 SEEN, Urine WBC 50-100 SEEN, Ur Squamous Epith Cells 0-5 SEEN, Urine Bacteria 4+, Urine Mucus 0 SEEN Micro: Microbiology 07/29/23 02:40 Nasal Secretion SARS-CoV-2 & FLU Antigen (Rapid) - Final SARS-CoV-2 (COVID 19) Radiology Impression Chest X-Ray 07/29/23 02:24 IMPRESSION: Findings suspicious for left lower lobe consolidation and/or effusion. Gassy distended appearing bowel loops. Electronically Signed: Risa Silverio MD at 3:25 EDT , Assessment & Plan Assessment/Plan (1) Hypotension: (2) Hypoxia: (3) COVID-19: (4) Lower extremity edema: (5) Urinary tract infection: (6) LUPE (acute kidney injury): (7) Generalized weakness: (8) Paroxysmal atrial fibrillation: PLAN: Plan 1. Dizziness/hypotension secondary to urinary tract infection and shannon mitten COVID-19 infection?admit patient to ICU continue IV fluids aggressively, patient is to be reassessed for possible central line prior to transfer to ICU by emergency room physician in case we are to use pressors to maintain blood pressure. Currently he is feeling better than when he arrived and will continue IV Zosyn initiated in the emergency room for treatment of his UTI/sepsis 2. Hypoxia?continue oxygen support patient is maintaining oxygen saturations greater than 90% at this time. 3. COVID-19 infection?continue oxygen support as above patient is on day 5 of symptoms and has had mostly headache with this infection. He will be maintained in isolation per routine protocol 4. Multiple sclerosis?patient did receive a dose of steroids in the emergency room 5. Lower extremity edema?we will continue to monitor at this time and is not severe and maintaining blood pressure with fluid resuscitation supersedes his current level of edema 6. Paroxysmal atrial fibrillation?continue anticoagulation 7. DVT prophylaxis?patient anticoagulated Charges/Coding Visit Charges Inpatient E&M: 90604 Init Hosp L2
[2023-07-29] MEDS: 0.9% Normal Saline 1,000 ML 125 ML IV ×3 (05:23→22:52)
--- NOTE | 2023-07-29 07:19 | CON.PCM.CC_ITS ---
Assessment & Plan Assessment/Plan (1) Hypotension: PLAN: Plan RECOMMENDATIONS: 1. Wean supplemental oxygen to maintain saturations at or above 90%. 2. Initiate remdesivir and Decadron. 3. Continue empiric antimicrobials, pending finalized culture results. 4. Encourage incentive spirometer use while in bed. 5. Continue nocturnal BiPAP therapy per home regimen. 6. The patient is medically stable for transfer out of the intensive care unit. IMPRESSIONS: 1. Hypotension The patient presented to the hospital in a hypotensive state, which appeared to be secondary to intravascular volume depletion. The patient's blood pressure responded avidly to fluid resuscitation. He never required initiation of vasopressor support. He does have what appears to be a potential urinary tract source of infection, for which he will be maintained on empiric antimicrobials, pending finalized culture results. 2. COVID-19 pneumonia The patient does not regularly utilize supplemental oxygen at his baseline. In light of his COVID diagnosis combined with his comorbidities and supplemental oxygen demand, will initiate him on Decadron and remdesivir. Continue supplemental oxygen to maintain saturations at or above 90%. 3. Acute kidney injury Most likely prerenal in etiology in the setting of #1. Creatinine has improved with volume expansion. Continue to monitor urine output. No current indication for renal replacement therapy. 4. History of obstructive sleep apnea The patient is maintained on nocturnal BiPAP therapy 21/17 cmH2O on an outpatie nt basis. Recommend continuing the aforementioned while admitted to the hospital. 5. History of bladder CA in remission/history of venous thromboembolic disease/Baseline MS/GERD/hypertension Complicates care, management, recovery and prognosis. Continue home Eliquis. This note was generated with [employer] dictation software. It may contain incorrect words, spelling, and punctuation that were not noted in checking the note before signing. HPI Consult Data Date of Consult: 07/29/23 HPI Narrative Reason for Consultation: Sepsis, COVID-19 pneumonia HPI Narrative: The patient is a 68-year-old male, with a history as outlined below, who presented to the emergency department via EMS on the morning of July 29 with generalized malaise, fatigue, dizziness and lightheadedness. The patient has a known history of obstructive sleep apnea, multiple sclerosis, paroxysmal atrial fibrillation, prior pulmonary embolism, hypertension and hyperlipidemia. The patient does not utilize supplemental oxygen at his baseline. He has been compliant with prescribed outpatient CPAP therapy. On presentation to the emergency department, the patient was noted to be afebrile. Presenting blood pressure was documented to be 78/50 mmHg. Initial laboratory evaluation revealed no evidence of a leukocytosis. Chemistry profile was notable for a creatinine of 1.95. Lactate was normal at 1.9. Urine analys is was positive for leukocyte esterase and 4+ urine bacteria. Rapid COVID screening was positive. Chest imaging demonstrated left lower lobe atelectasis. The patient received supplemental IV fluid hydration and was initiated on antimicrobial therapy. The patient was subsequently transferred to the medical intensive care unit for further management. [facility] Medical History Abnormal EKG Atrial septal defect Bladder cancer Chronic anticoagulation Hx of multiple sclerosis Hyperlipidemia Hypertension Kidney stones Multiple sclerosis Obstructive sleep apnea Paroxysmal atrial fibrillation Pulmonary embolism Recurrent UTI Syncope due to orthostatic hypotension Home Medications ocrelizumab 30 mg/mL intravenous solution (Ocrevus) 600 mg IV .COMPLEX multiple sclerosis 11/04/17 [History Last Taken 05/24/22] cholecalciferol (vitamin D3) 25 mcg (1,000 unit) tablet 5,000 unit PO DAILY supplement 05/28/18 [History Last Taken 07/01/22] multivitamin with folic acid 400 mcg tablet 1 tab PO DAILY supplement 05/28/18 [History Last Taken 07/01/22] pantoprazole 40 mg tablet,delayed release 40 mg PO DAILY reflux 12/01/19 [History Last Taken 07/02/22] potassium citrate 15 mEq (1,620 mg) tablet,extended release 15 meq PO BID ##60 02/04/20 [Rx Last Taken 07/02/22] albuterol sulfate 2.5 mg/3 mL (0.083 %) solution for nebulization 2.5 mg (3 mL) inhalation Q4H PRN shortness of breath or wheezing #180 vials 01/17/21 [Rx Last Taken Unknown] lisinopril 20 mg tablet 20 mg PO DAILY 07/18/21 [History Last Taken 07/01/22] duloxetine 60 mg capsule,delayed release 60 mg PO QHS nerve 07/02/22 [History Last Taken 07/01/22] meclizine 25 mg tablet 25 mg PO DAILY PRN Dizziness 07/02/22 [History Last Taken 07/02/22] tamsulosin 0.4 mg capsule 0.4 mg PO QHS 07/02/22 [History Last Taken 07/01/22] tizanidine 4 mg tablet 4 mg PO Q8H PRN muscles 07/02/22 [History Last Taken 2 Weeks Ago ~06/18/22] carvedilol 12.5 mg tablet (Coreg) 12.5 mg PO BID #180 tabs 11/08/22 [Rx Last Taken Unknown] apixaban 5 mg tablet 5 mg PO BID blood thinner #180 tabs 05/15/23 [Rx Last Taken Unknown] simvastatin 20 mg tablet 20 mg PO QHS 07/02/23 [History Last Taken Unknown] furosemide 40 mg tablet (Lasix) 40 mg PO DAILY #90 tabs 07/03/23 [Rx Last Taken Unknown] lisdexamfetamine 50 mg capsule 50 mg PO DAILY MS 07/03/23 [History Last Taken Unknown] sodium bicarbonate 650 mg tablet 650 mg PO BID 07/03/23 [History Last Taken Unknown] Allergy/AdvReac Type Severity Reaction Status Date / Time No Known Allergies Allergy Verified 07/03/23 08:59 Family History Father CAD (coronary artery disease) Hypertension Myocardial infarction Mother Hypertension Sister Multiple sclerosis Surgical History History of bladder surgery History of lithotripsy History of vasectomy S/P ureteral stent placement Social History household members: spouse and family Smoking Status: Never smoker alcohol intake: never substance use type: does not use caffeine: Yes (very little) ROS ROS Narrative 10 systems were reviewed with pertinent positives as noted in the HPI above. Physical Exam Const alert and no apparent distress General Appearance: cooperative HEENT normocephalic, head/scalp atraumatic and moist oral mucous membranes Eyes PERRL and EOMs intact bilaterally Neck supple General: trachea midline Chest inspection of chest normal Resp normal respiratory effort Auscultation: Negative for rales, rhonchi or wheezes Cardio regular rate and regular rhythm GI normal to inspection, nondistended, normoactive bowel sounds Extremity no clubbing, cyanosis or edema Skin no rashes or lesions noted Neuro oriented x3 Neuro Narrative: Baseline neurologic deficits secondary to MS Psych cooperative and affect normal Lab / Micro Data 07/29/23 09:15 07/29/23 09:15 Labs: Laboratory Results - last 24 hr 07/29/23 02:10: WBC 8.5, RBC 5.23, Hgb 14.2, Hct 46.7, MCV 89.3, MCH 27.2, MCHC 30.4 L, RDW Std Deviation 51.0 H, RDW Coeff of Bravo 15.5 H, Plt Count 141 L, MPV 9.6, Immature Gran % (Auto) 0.700, Neut % (Auto) 68.8, Lymph % (Auto) 18.1 L, Hyde % (Auto) 10.4 H, Eos % (Auto) 1.4, Baso % (Auto) 0.6, Absolute Neuts (auto) 5.9, Absolute Lymphs (auto) 1.55, Nucleated RBC % 0, Sodium 140, Potassium 4.5, Chloride 109 H, Carbon Dioxide 26.0, Anion Gap 5, BUN 24 H, Creatinine 1.95 H, Estim Creat Clear Calc 48.17, Est GFR (MDRD) Af Amer 45 L, Est GFR (MDRD) Non-Af 37 L, BUN/Creatinine Ratio 12.3, Glucose 176 H, Lactic Acid 1.9, Calcium 8.2 L 07/29/23 02:35: Urine Color Brown, Urine Clarity Cloudy, Urine pH 7.0, Ur Specific [place] 1.010, Urine Protein 100 H, Urine Glucose (UA) Normal, Urine Ketones Negative, Urine Occult Blood 150 H, Urine Nitrite Negative, Urine Bilirubin 3 H, Urine Urobilinogen 8 H, Ur Leukocyte Esterase 500 H, Urine RBC 5- 10 SEEN, Urine WBC 50-100 SEEN, Ur Squamous Epith Cells 0-5 SEEN, Urine Bacteria 4+, Urine Mucus 0 SEEN Micro: Microbiology 07/29/23 02:40 Nasal Secretion SARS-CoV-2 & FLU Antigen (Rapid) - Final SARS-CoV-2 (COVID 19) Radiology Impression Chest X-Ray 07/29/23 02:24 IMPRESSION: Findings suspicious for left lower lobe consolidation and/or effusion. Gassy distended appearing bowel loops. Electronically Signed: Risa Silverio MD at 3:25 EDT , Charges/Coding Visit Charges Inpatient E&M: 83744 Init Hosp L3
--- NOTE | 2023-07-29 08:27 | US_ITS ---
INDICATION: r/o hydronephrosis EXAMINATION: Ultrasound US Kidney(s) complete (eg, kidneys and bladder) TECHNIQUE: Rodriguez scale and color doppler images were obtained of the kidneys and urinary bladder. COMPARISON: 05/16/2021 ultrasound. FINDINGS: RIGHT KIDNEY: 13.4 cm in length. Simple appearing 1.6 cm cyst with no follow-up recommended. No Hydronephrosis. No sonographic evidence of a renal stone. Normal vascular flow demonstrated with color Doppler. LEFT KIDNEY: 13.8 cm in length. The kidney is not well visualized due to patient''s body habitus, difficulty with patient positioning and shadowing stones. No definite hydronephrosis. URINARY BLADDER: A right ureteral jet was visualized. A left ureteral jet was not visualized. There is mild circumferential wall thickening measuring up to 5 mm. US/Kidney and Bladder IMPRESSION: 1. Limited visualization of the left kidney secondary to patient''s body habitus, difficulty with patient positioning and multiple shadowing left renal stones. 2. Normal appearance of the right kidney. 3. Right ureteral jets were visualized with a left ureteral jet not seen. 4. Thickening of the urinary bladder wall which may represent cystitis, bladder outlet obstruction or neurogenic bladder. Electronically Signed: Aubrey Fernandez DO at 1:13 EDT ,
--- NOTE | 2023-07-29 08:45 | PCM.RX.CS ---
Consult Antibiotic Management Pharmacy has been consulted to manage selected antiobiotic: Vancomycin Type of Intervention Type of Consult: New start Suspected Infection Suspected Infection: Sepsis and Pneumonia Prior Doses of Antibiotics Prior Doses of Antibiotics Received/Current Regimen: Patient is on Zosyn 3.375 Q8H Patient received Vancomycin 2000 mg IV x 1 dose 07/29/23 @ 0258 Labs Labs: Sodium 140 mmol/L (136-145) 07/29/23 02:10 Potassium 4.5 mmol/L (3.5-5.1) 07/29/23 02:10 Chloride 109 mmol/L (98-107) H 07/29/23 02:10 Carbon Dioxide 26.0 mmol/L (21.0-32.0) 07/29/23 02:10 Anion Gap 5 (5-15) 07/29/23 02:10 BUN 24 mg/dL (7-18) H 07/29/23 02:10 Creatinine 1.95 mg/dL (0.70-1.30) H 07/29/23 02:10 Est GFR (MDRD) Af Amer 45 mL/min (>60) L 07/29/23 02:10 Est GFR (MDRD) Non-Af 37 mL/min (>60) L 07/29/23 02:10 BUN/Creatinine Ratio 12.3 RATIO (10-20) 07/29/23 02:10 Glucose 176 mg/dL (74-106) H 07/29/23 02:10 Microbiology Microbiology: Microbiology 07/29/23 02:40 Nasal Secretion SARS-CoV-2 & FLU Antigen (Rapid) - Final SARS-CoV-2 (COVID 19) Dosing Weight Weight used for dosin.9 kg Estimated Creatinine Clearance Estimated Creatinine Clearance: 59 (adj bw Goal Trough Goal Trough: 15-20 mcg/mL Pharmacy Plan for Drug Dosing Pharmacy Plan for Drug Dosing: Vancomycin 1250 mg Q12H starting 08/01/23 @ 1500, trough prior to 4th dose. Pharmacy Service will continue to monitor and adjust dosing as required. Follow-Up Labs Follow-Up Labs: Trough: Vancomycin Date/Time Labs Ordered Labs to be done on [date and time ordered]: 07/30/23 @ 1430
[2023-07-29] MEDS: dexAMETHasone 4 MG Tablet 6 MG PO (09:03)
[2023-07-29] MEDS: APIXABAN 5 MG TABLET PO ×2 (09:03→21:30)
[2023-07-29] MEDS: Pantoprazole Sodium 40 MG Tablet PO (09:03)
[2023-07-29] MEDS: Multivitamins,Therapeutic Tablet 1 TABLET PO (09:03)
[2023-07-29 09:22] LABS: Absolute Lymphocyte Count 1.43 X10^3/uL (0.83-4.51); Absolute Neutrophil Count 4.3 X10^3/uL (2.0-7.7); Basophil# 0.01 X10^3/uL; Basophil% 0.2 % (0-1); Hemoglobin 13.8 g/dL (13.0-16.5); Lymphocyte # 1.43 X10^3/ul (0.83-4.51); Lymphocyte % 23.3 % (19-41); Mean Corp Hgb Conc 30.7 g/dL (32-36); Mean Corpuscular Hgb 27.2 pg (27.0-32.0); Mean Corpuscular Volume 88.8 fL (80-94); Mean Platelet Vol. 9.6 fl (6.2-12.0); Monocyte# 0.42 X10^3/uL; Monocyte% 6.8 % (0-10); NRBC Flagged by Analyzer 0 % (0-5); Neutrophil # 4.26 X10^3/uL (2.7-7.7); Neutrophil % 69.4 % (47-70); Platelet Count 129 K/mm3 (150-450); RBC Distribution Width CV 15.4 % (11.6-14.6); RBC Distribution Width SD 49.7 fl (35.1-43.9); Red Blood Count 5.07 M/mm3 (4.6-6.2); White Blood Count 6.1 K/mm3 (4.4-11.0)
[2023-07-29 10:09] LABS: Alkaline Phosphatase 84 U/L (45-117)
[2023-07-29 10:11] LABS: Anion Gap 4 (5-15); BUN 20 mg/dL (7-18); BUN/Creat Ratio 14.4 RATIO (10-20); Calcium,Total 7.7 mg/dL (8.5-10.1); Chloride 111 mmol/L (98-107); Creatinine, Serum 1.39 mg/dL (0.70-1.30); EST Glomerular Filtration Rate 54 mL/min (>60); Est Glom Filt Rate - Afr Amer 66 mL/min (>60); Estimated Creatinine Clearance 67.58 ml/min; Glucose 119 mg/dL (74-106); Potassium 4.3 mmol/L (3.5-5.1); Sodium Level 142 mmol/L (136-145)
--- NOTE | 2023-07-29 11:58 | CASEMGMT ---
ELIZABETH PINEDA Assessment: Face to Face with pt for initial transition planning/care coordination assessment. ELIZABETH PINEDA introduced self and role at [facility], pt voices understanding and consents to assessment. Pt is A/O x4 and answers all questions appropriately at this time. Pt lying in bed in no distress with oxygen on. Care providers, pharmacy, and demographics verified/updated. Admitting Dx: UTI, hypotension, COVID 19 PCP:Alvaro Specialists:Last, pulm; Az, uro; Aristides, cardio; neuro in [place] Preferred Pharmacy: [facility] Insurance: [employer] [facility] Prescription Benefit: yes LNOK: Mirella Barney, ; Isabelle Yadira, dtr Living Arrangements: Pt lives with in a single story home with a ramp to enter. Pt reports he is dependent on his for ADL and IADL's. He states his gets him up in the morning with the mihaela lift, uses bathroom and goes to his chair for the day. Pt states he currently is sponge bathed by his . He denies any concerns at home. Transportation: Pt provides transportation to medical appts. DME/HHC/SNF: Pt has a medical van with lifts, handicap shower but doesn't use anymore, hospital bed, CPAP, mihaela lift and w/c. Pt has had [facility] HHC in the past and has not been to a SNF. Pt states no concerns with going home at time of dc. Currently he states he feels a little weaker than usual. He is not sure that he will need any services upon dc. Pt states no further concerns/needs. CM to follow. Advised pt to ask CM if any further question/concerns/needs arise, voices understanding. Pt Goal: Home with 's assistance Plan: Home, follow for oxygen and therapy
--- NOTE | 2023-07-29 17:32 | PN.HOSP_ITS ---
Reason for Visit Reason for Visit: Diagnoses Paroxysmal atrial fibrillation (07/29/23) Hypotension, unspecified (07/29/23) Acute kidney failure, unspecified (07/29/23) Urinary tract infection, site not specified (07/29/23) Hypoxemia (07/29/23) Weakness (07/29/23) Localized edema (07/29/23) COVID-19 (07/29/23) Subjective Subjective No acute events overnight. Patient seen at bedside this morning, present. Patient sitting comfortably in bed, conversing normally, no acute distress. He is requiring 3 L nasal cannula, satting mid to high 90s, no increased work of breathing noted. Patient reports that he has been urinating without issue. He denies any shortness of breath at rest. He denies any significant weakness beyond his baseline. Denies any fevers or chills. Continues to feel somewhat fatigued, improved from yesterday. No other acute concerns. Objective Data Objective Data Vital Signs: Vital Signs Temp Pulse Resp BP Pulse Ox O2 Del Method O2 Flow Rate 97.7 F L 69 18 119/76 97 Nasal Cannula 2 07/29/23 14:30 07/29/23 14:30 07/29/23 14:30 07/29/23 14:30 07/29/23 14:35 07/29/23 14:35 07/29/23 16:05 Oxygen Flow Rate (L/min) 2 Oxygen Delivery Method Nasal Cannula Weight: 145.9 kg Body Mass Index (BMI) 37.2 Intake & Output: Intake and Output for Last 24 Hours 07/27/23 07/28/23 07/29/23 23:59 23:59 23:59 Intake Total 4107.10 / 4107.10 Balance 4107.10 / 4107.10 Lab / Micro Data 07/30/23 05:33 07/30/23 05:33 Labs: Laboratory Results - last 24 hr 07/29/23 02:10: WBC 8.5, RBC 5.23, Hgb 14.2, Hct 46.7, MCV 89.3, MCH 27.2, MCHC 30.4 L, RDW Std Deviation 51.0 H, RDW Coeff of Bravo 15.5 H, Plt Count 141 L, MPV 9.6, Immature Gran % (Auto) 0.700, Neut % (Auto) 68.8, Lymph % (Auto) 18.1 L, Harmon % (Auto) 10.4 H, Eos % (Auto) 1.4, Baso % (Auto) 0.6, Absolute Neuts (auto) 5.9, Absolute Lymphs (auto) 1.55, Nucleated RBC % 0, Sodium 140, Potassium 4.5, Chloride 109 H, Carbon Dioxide 26.0, Anion Gap 5, BUN 24 H, Creatinine 1.95 H, Estim Creat Clear Calc 48.17, Est GFR (MDRD) Af Amer 45 L, Est GFR (MDRD) Non-Af 37 L, BUN/Creatinine Ratio 12.3, Glucose 176 H, Lactic Acid 1.9, Calcium 8.2 L 07/29/23 02:35: Urine Color Brown, Urine Clarity Cloudy, Urine pH 7.0, Ur Specific [place] 1.010, Urine Protein 100 H, Urine Glucose (UA) Normal, Urine Ketones Negative, Urine Occult Blood 150 H, Urine Nitrite Negative, Urine Bilirubin 3 H, Urine Urobilinogen 8 H, Ur Leukocyte Esterase 500 H, Urine RBC 5- 10 SEEN, Urine WBC 50-100 SEEN, Ur Squamous Epith Cells 0-5 SEEN, Urine Bacteria 4+, Urine Mucus 0 SEEN 07/29/23 09:15: WBC 6.1, RBC 5.07, Hgb 13.8, Hct 45.0, MCV 88.8, MCH 27.2, MCHC 30.7 L, RDW Std Deviation 49.7 H, RDW Coeff of Bravo 15.4 H, Plt Count 129 L, MPV 9.6, Immature Gran % (Auto) 0.300, Neut % (Auto) 69.4, Lymph % (Auto) 23.3, Harmon % (Auto) 6.8, Eos % (Auto) 0.0, Baso % (Auto) 0.2, Absolute Neuts (auto) 4.3, Absolute Lymphs (auto) 1.43, Nucleated RBC % 0, Sodium 142, Potassium 4.3, Chloride 111 H, Carbon Dioxide 27.0, Anion Gap 4 L, BUN 20 H, Creatinine 1.39 H, Estim Creat Clear Calc 67.58, Est GFR (MDRD) Af Amer 66, Est GFR (MDRD) Non-Af 54 L, BUN/Creatinine Ratio 14.4, Glucose 119 H, Calcium 7.7 L, Alkaline Phosphatase 84 Micro: Microbiology 07/29/23 02:40 Nasal Secretion SARS-CoV-2 & FLU Antigen (Rapid) - Final SARS-CoV-2 (COVID 19) Radiography Diagnostic Testing: Radiology Impression Chest X-Ray 07/29/23 02:24 IMPRESSION: Findings suspicious for left lower lobe consolidation and/or effusion. Gassy distended appearing bowel loops. Electronically Signed: Risa Silverio MD at 3:25 EDT , Physical Exam Const alert and oriented x3 Constitutional Narrative: Pleasant male, obese, sitting comfortably in bed, conversing normally, no acute distress. Satting well on 3 L nasal cannula, no increased work of breathing noted. General Appearance: cooperative, comfortable, well kempt and well developed HEENT normocephalic, head/scalp atraumatic, hearing grossly normal bilaterally, nasal mucous membranes and turbinates normal and moist oral mucous membranes Eyes PERRL, EOMs intact bilaterally and conjunctivae normal Neck full ROM, no lymphadenopathy and supple Lymph Lymphatic: no lymphadenopathy noted Chest inspection of chest normal Resp normal respiratory effort, normal air movement, no use of accessory muscles and clear to auscultation bilaterally Cardio regular rate, regular rhythm, no murmurs and peripheral pulses 2+ throughout GI normal to inspection, nondistended, normoactive bowel sounds, soft to palpation, non-tender and non-distended Narrative: No suprapubic tenderness noted. Back/Spine normal ROM Extremity normal to inspection, full ROM and no pedal edema Skin no rashes or lesions noted Psych mental status grossly normal Assessment & Plan Assessment/Plan (1) Urinary tract infection: PLAN: Plan Patient is a 68-year-old male with history of MS with functional paraplegia (wheelchair-bound), recurrent UTIs with ureteral stent placement, remote bladder cancer, paroxysmal A-fib on Eliquis, hypertension and hyperlipidemia who presented to [facility] ED on 07/29 with worsening fatigue and lightheadedness. 1. Sepsis without shock, resolved Secondary to suspected UTI and COVID infection as noted below. Hypotensive on admission requiring ICU admission. Blood pressure improved with IV fluid resuscitation, did not require pressors. Transferred out of ICU on evening of 07/29. Stable since transfer. ? Treat UTI and code infection as noted below. 2. Large left-sided renal calculus CT abdomen pelvis with IV contrast on admit showed a 1.8 cm calculus in the left renal pelvis with a mild degree of left hydronephrosis. Patient notably is asymptomatic. ? Urology consulted. If urology services are not available, will likely need to transfer patient to outside hospital for further care. Continue Flomax. 3. Concern for UTI, known history of recurrent UTIs with previous ureteral stent placement UA on admit shows 500 leukocyte esterase, negative nitrates, 50-100 white blood cells, 4+ bacteria. Urine culture growing Staphylococcus species, speciation and sensitivities pending. CT abdomen pelvis as noted above. ? Continue vancomycin and Zosyn for broad coverage for now, narrow as able. 4. COVID-19 infection COVID-positive in the ED. Chest x-ray with findings suspicious for left lower lobe consolidation versus effusion. Requiring 2 to 4 L nasal cannula since admission. ? Continue Decadron and remdesivir. Continue supplemental oxygen to maintain saturations greater than 90%. 5. LUPE, resolved ? Likely prerenal in setting of sepsis as noted above. Creatinine proved to baseline with IV fluid resuscitation. Monitor BMP. 6. Multiple sclerosis with functional paraplegia Diagnosis approximately 30 years ago. Is wheelchair-bound at baseline. Lives at home with his , has had no issues taking care of himself with assistance at home. No history of severe flares. ? Continue Decadron as noted above, will likely plan for at least 5-day course. Okay to restart home medications on discharge. Chronic medical conditions: ? Hypertension: Holding home lisinopril, carvedilol and Lasix in setting of sepsis as noted above. Restart as able. ? Paroxysmal A-fib: Continue home Eliquis. ? Hyperlipidemia: Continue home simvastatin. ? GERD: Continue home PPI. DVT prophylaxis: Eliquis CODE STATUS: Full code, unverified Expected disposition: TBD Total clinical time spent by myself addressing the patient's medical issues, reviewing all the data, and collaborating with patient's care team: 35 minutes. Charges/Coding Visit Charges Inpatient E&M: 34700 Subs Hosp L2
[2023-07-29] MEDS: Tamsulosin HCl 0.4 MG Capsule PO (21:17)
[2023-07-29] MEDS: Atorvastatin Calcium 10 MG Tablet PO (21:17)
[2023-07-29] MEDS: DULoxetine Hcl 60 MG Capsule PO (21:30)
[2023-07-30] VITALS (12 sets, daily range): BP systolic 117–130; BP diastolic 68–85; PULSE 45–67; RESP 10–22; TEMP 36.4–36.9; O2SAT 93–98; BMI 37.1
[2023-07-30 05:48] LABS: Hematocrit 42.3 % (40-54); Hemoglobin 13.6 g/dL (13.0-16.5); Mean Corp Hgb Conc 32.2 g/dL (32-36); Mean Corpuscular Hgb 27.8 pg (27.0-32.0); Mean Corpuscular Volume 86.3 fL (80-94); Mean Platelet Vol. 9.8 fl (6.2-12.0); Platelet Count 143 K/mm3 (150-450); RBC Distribution Width CV 14.9 % (11.6-14.6); RBC Distribution Width SD 47.6 fl (35.1-43.9); White Blood Count 5.9 K/mm3 (4.4-11.0)
[2023-07-30 06:15] LABS: ALB/GLOB Ratio 0.7 RATIO (0.9-2.4); AST(SGOT) 15 U/L (15-37); Alanine Aminotransfer ALT/SGPT 24 U/L (16-61); Albumin, Serum 2.3 g/dL (3.2-5.0); Alkaline Phosphatase 77 U/L (45-117); Anion Gap 3 (5-15); BUN 17 mg/dL (7-18); BUN/Creat Ratio 16.7 RATIO (10-20); Calcium,Total 7.9 mg/dL (8.5-10.1); Chloride 116 mmol/L (98-107); Creatinine, Serum 1.02 mg/dL (0.70-1.30); EST Glomerular Filtration Rate 78 mL/min (>60); Est Glom Filt Rate - Afr Amer 94 mL/min (>60); Globulin 3.2 g/dL (2.2-4.2); Glucose 145 mg/dL (74-106); Potassium 4.2 mmol/L (3.5-5.1); Protein, Total 5.5 g/dL (6.4-8.2); Sodium Level 143 mmol/L (136-145)
[2023-07-30] MEDS: 0.9% Normal Saline 1,000 ML 125 ML IV (06:37)
--- NOTE | 2023-07-30 07:59 | CT_ITS ---
STUDY: CT ABDOMEN AND PELVIS WITH CONTRAST REASON FOR EXAM: Male, 68 years old. r/o bladder obstruction, hydronephrosis RADIATION DOSAGE (If Supplied By Facility): CTDIvol = ( 21.85 ) mGy, DLP = ( 2945.55 ) mGycm TECHNIQUE: Transaxial images were obtained from the dome of the diaphragm to the symphysis pubis without oral contrast. IV 100mL Isovue-300 was administered. Sagittal and coronal images were reconstructed. Individualized dose optimization techniques were used for this CT. COMPARISON: Comparison is made with prior study May 17, 2021. FINDINGS: Bibasilar atelectasis. Elevation of left hemidiaphragm. The visualized portions of the heart are within normal limits. There is decreased attenuation of the liver consistent with steatosis. Normal gallbladder and extrahepatic biliary system. Normal spleen. Normal pancreas. Normal bilateral adrenal glands. Normal right kidney. 1.8 similar cyst in the upper pole of the left kidney. Tiny nonobstructive left intrarenal calculus. There is a 1.8 cm calculus in the left renal pelvis causing a mild degree of left hydronephrosis. Normal visualized stomach. Normal small intestine. Diffuse circumferential thickening of the rectosigmoid colon. The appendix is visualized and appears normal. Normal abdominal aorta. Normal inferior vena cava. Normal retroperitoneum. Mild degree of thickening of the anterior wall of the urinary bladder with mild increased markings in the surrounding fat. Normal abdominal wall. There are degenerative changes of the visualized lumbar spine. Dextroscoliosis of the lumbar spine. CT/Abdomen/Pelvis WITH Contrast IMPRESSION: Mild degree of left hydronephrosis due to a 1.8 cm calculus in the left renal pelvis. Tiny nonobstructive left intrarenal calculi. Stable cyst in the upper pole of the left kidney. Mild degree of bibasilar atelectasis. Elevation of the left hemidiaphragm. Circumferential wall thickening of the rectosigmoid colon. Electronically Signed: Bc Bishop MD at 12:22 EDT ,
[2023-07-30] MEDS: Pantoprazole Sodium 40 MG Tablet PO (09:52)
[2023-07-30] MEDS: Multivitamins,Therapeutic Tablet 1 TABLET PO (09:52)
[2023-07-30] MEDS: APIXABAN 5 MG TABLET PO ×2 (09:53→22:12)
[2023-07-30] MEDS: 0.9% Saline Lock 10 ML Syringe IV ×5 (09:54→17:34)
--- NOTE | 2023-07-30 10:06 | PCM.PN.INT ---
Assessment & Plan Assessment/Plan (1) Hypotension: PLAN: Plan RECOMMENDATIONS: 1. Wean supplemental oxygen to maintain saturations at or above 90%. 2. Continue remdesivir and Decadron. 3. Stop continuous IV fluids. 4. Continue empiric antimicrobials, pending finalized culture results. 5. Encourage incentive spirometer use while in bed. 6. Continue nocturnal BiPAP therapy per home regimen. 7. Follow-up in the pulmonary medicine clinic 2 weeks after discharge. 8. We will sign off. Please call with any additional questions. IMPRESSIONS: 1. Hypotension Resolved. The patient presented to the hospital in a hypotensive state, which appeared to be secondary to intravascular volume depletion. The patient's blood pressure responded avidly to fluid resuscitation. He never required initiation of vasopressor support. He does have what appears to be a potential urinary tract source of infection, for which he will be maintained on empiric antimicrobials, pending finalized culture results. 2. COVID-19 pneumonia The patient does not regularly utilize supplemental oxygen at his baseline. In light of his COVID diagnosis combined with his comorbidities and supplemental oxygen demand, will continue him on Decadron and remdesivir. Continue supplemental oxygen to maintain saturations at or above 90%. 3. Acute kidney injury Resolved. Most likely prerenal in etiology in the setting of #1. Creatinine has improved with volume expansion. Continue to monitor urine output. No current indication for renal replacement therapy. 4. History of obstructive sleep apnea The patient is maintained on nocturnal BiPAP therapy 21/17 cmH2O on an outpatient basis. Recommend continuing the aforementioned while admitted to the hospital. 5. History of bladder CA in remission/history of venous thromboembolic disease/Baseline MS/GERD/hypertension Complicates care, management, recovery and prognosis. Continue home Eliquis. This note was generated with [employer] dictation software. It may contain incorrect words, spelling, and punctuation that were not noted in checking the note before signing. Subjective Subjective The patient was seen and examined at the bedside this morning. Events from the last 24 hours have been reviewed. The patient is currently afebrile, hemodynamically stable and maintaining appropriate oxygen saturations on 4 L/min via nasal cannula. Platelet count remains low at 143,000. Creatinine has normalized. Objective Data Objective Data The patient's most recent lab work, culture data and imaging studies have all been personally reviewed. COVID-19 rapid antigen testing was positive on July 29. Blood and urine cultures are pending. Vital Signs: Vital Signs Temp Pulse Resp BP Pulse Ox O2 Del Method O2 Flow Rate 97.8 F 67 18 130/78 H 95 Nasal Cannula 4 07/30/23 09:50 07/30/23 09:50 07/30/23 09:50 07/30/23 09:50 07/30/23 09:50 07/30/23 09:50 07/30/23 09:50 FiO2 35 07/30/23 07:46 Oxygen Flow Rate (L/min) 4 Oxygen Delivery Method Nasal Cannula Weight: 321 lb 5 oz Body Mass Index (BMI) 37.1 Intake & Output: Intake and Output for Last 24 Hours 07/28/23 07/29/23 07/30/23 23:59 23:59 23:59 Intake Total 5432.10 / 5532.10 1843.75 / 1843.75 Output Total 750 / 750 Balance 5432.10 / 5232.10 1093.75 / 1093.75 Lab / Micro Data Attestation: I reviewed the patient's lab results. 07/30/23 05:33 07/30/23 05:33 Labs: Laboratory Results - last 24 hr 07/29/23 09:15: Sodium 142, Potassium 4.3, Chloride 111 H, Carbon Dioxide 27.0, Anion Gap 4 L, BUN 20 H, Creatinine 1.39 H, Estim Creat Clear Calc 67.58, Est GFR (MDRD) Af Amer 66, Est GFR (MDRD) Non-Af 54 L, BUN/Creatinine Ratio 14.4, Glucose 119 H, Calcium 7.7 L, Alkaline Phosphatase 84 07/30/23 05:33: WBC 5.9, RBC 4.90, Hgb 13.6, Hct 42.3, MCV 86.3, MCH 27.8, MCHC 32.2, RDW Std Deviation 47.6 H, RDW Coeff of Bravo 14.9 H, Plt Count 143 L, MPV 9.8, Sodium 143, Potassium 4.2, Chloride 116 H, Carbon Dioxide 24.0, Anion Gap 3 L, BUN 17, Creatinine 1.02, Estim Creat Clear Calc 92.10, Est GFR (MDRD) Af Amer 94, Est GFR (MDRD) Non-Af 78, BUN/Creatinine Ratio 16.7, Glucose 145 H, Calcium 7.9 L, Total Bilirubin 0.20, AST 15, ALT 24, Alkaline Phosphatase 77, Total Protein 5.5 L, Albumin 2.3 L, Globulin 3.2, Albumin/Globulin Ratio 0.7 L Micro: Microbiology 07/29/23 02:40 Nasal Secretion SARS-CoV-2 & FLU Antigen (Rapid) - Final SARS-CoV-2 (COVID 19) Radiography Diagnostic Testing: Radiology Impression Renal Ultrasound 07/29/23 08:27 IMPRESSION: 1. Limited visualization of the left kidney secondary to patient''s body habitus, difficulty with patient positioning and multiple shadowing left renal stones. 2. Normal appearance of the right kidney. 3. Right ureteral jets were visualized with a left ureteral jet not seen. 4. Thickening of the urinary bladder wall which may represent cystitis, bladder outlet obstruction or neurogenic bladder. Electronically Signed: Aubrey Fernandez DO at 1:13 EDT , Physical Exam Const alert and no apparent distress General Appearance: cooperative HEENT normocephalic, head/scalp atraumatic and moist oral mucous membranes Eyes PERRL and EOMs intact bilaterally Neck supple General: trachea midline Chest inspection of chest normal Resp normal respiratory effort Auscultation: Negative for rales, rhonchi or wheezes Cardio regular rate and regular rhythm GI normal to inspection, nondistended, normoactive bowel sounds Extremity no clubbing, cyanosis or edema Skin no rashes or lesions noted Neuro oriented x3 Neuro Narrative: Baseline neurologic deficits secondary to MS Psych cooperative and affect normal Charges/Coding Visit Charges Inpatient E&M: 42461 Subs Hosp L2
[2023-07-30] MEDS: dexAMETHasone 4 MG Tablet 6 MG PO (11:33)
--- NOTE | 2023-07-30 15:16 | CASEMGMT ---
Tertiary facilities in-network with patient's insurance: [facility], [facility], , [facility]
--- NOTE | 2023-07-30 16:41 | PCM.RX.CS ---
Consult Antibiotic Management Pharmacy has been consulted to manage selected antiobiotic: Vancomycin Type of Intervention Type of Consult: Follow-up Suspected Infection Suspected Infection: Sepsis and Pneumonia Prior Doses of Antibiotics Prior Doses of Antibiotics Received/Current Regimen: Currently on 1250mg iv q12h. Labs Labs: Sodium 143 mmol/L (136-145) 07/30/23 05:33 Potassium 4.2 mmol/L (3.5-5.1) 07/30/23 05:33 Chloride 116 mmol/L (98-107) H 07/30/23 05:33 Carbon Dioxide 24.0 mmol/L (21.0-32.0) 07/30/23 05:33 Anion Gap 3 (5-15) L 07/30/23 05:33 BUN 17 mg/dL (7-18) 07/30/23 05:33 Creatinine 1.02 mg/dL (0.70-1.30) 07/30/23 05:33 Est GFR (MDRD) Af Amer 94 mL/min (>60) 07/30/23 05:33 Est GFR (MDRD) Non-Af 78 mL/min (>60) 07/30/23 05:33 BUN/Creatinine Ratio 16.7 RATIO (10-20) 07/30/23 05:33 Glucose 145 mg/dL (74-106) H 07/30/23 05:33 Vancomycin Trough 11.0 ug/mL (5.0-15.0) 07/30/23 14:40 Microbiology Microbiology: Microbiology 07/29/23 02:35 Urine, Catheterized Urine Culture - Preliminary Staphylococcus species 07/29/23 02:40 Nasal Secretion SARS-CoV-2 & FLU Antigen (Rapid) - Final SARS-CoV-2 (COVID 19) Dosing Weight Weight used for dosin.9 kg Estimated Creatinine Clearance Estimated Creatinine Clearance: >100ml/min Goal Trough Goal Trough: 15-20 mcg/mL Pharmacy Plan for Drug Dosing Pharmacy Plan for Drug Dosing: Trough today 11.5 hrs post dose was 11.0 and below desired range of 15-20 mcg/ml. Renal Cr improved from 1.95 to 1.02. Recommend changing dose to 1750mg iv q12h. New trough level ordered for before 4th dose. Pharmacy Service will continue to monitor and adjust dosing as required. Follow-Up Labs Follow-Up Labs: Trough: Vancomycin (9.8.23 @0430 before 0500 dose)
[2023-07-30] MEDS: Tamsulosin HCl 0.4 MG Capsule PO (22:12)
[2023-07-30] MEDS: DULoxetine Hcl 60 MG Capsule PO (22:12)
[2023-07-30] MEDS: Atorvastatin Calcium 10 MG Tablet PO (22:12)
[2023-07-31] VITALS (9 sets, daily range): BP systolic 128–139; BP diastolic 69–75; PULSE 40–63; RESP 10–18; TEMP 36.7–36.9; O2SAT 90–100; BMI 37.0
[2023-07-31] MEDS: Multivitamins,Therapeutic Tablet 1 TABLET PO (08:35)
[2023-07-31] MEDS: Pantoprazole Sodium 40 MG Tablet PO (08:35)
[2023-07-31] MEDS: dexAMETHasone 4 MG Tablet 6 MG PO (08:35)
[2023-07-31] MEDS: APIXABAN 5 MG TABLET PO (08:35)
--- NOTE | 2023-07-31 10:25 | PCM.CONS.GEN ---
Assessment & Plan Assessment/Plan (1) COVID-19: PLAN: covid with hypoxia. Vaccine x3. On some O2 here. Feeling better. thinks she recently had covid. On dex/remdesivir, plan on stopping these at discharge. LFTs have been normal. (2) LUPE (acute kidney injury): PLAN: Recovered. (3) Urinary tract infection: PLAN: Ucx with -wellington le. CT showed no pyelo or abscess, but did have 1.8cm L stone with some mild hydro. Will narrow vanc/zosyn to ceftriaxone. Plan will be home with po keflex 500mg tid for 2 weeks with urology followup prior to stopping to see if stone can be addressed. Will follow, thank you, d/w primary team (4) Left renal stone: HPI Consult Data Date of Consult: 07/31/23 HPI Narrative Reason for Consultation: covid HPI Narrative: NERY MIDDLETON, is a 68 M with h/o kidney stones, presented 07/29 with about 4 days progressive weakness, headache, fatigue. thinks she got covid from work recently and has since recovered. No abd pain, no dysuria, no diarrhea, no change in taste or smell. Covid vaccine x3. Came to ED, covid (+), admitted with LUPE, started on vanc/zosyn. Now feeling better. full ROS performed and neg except as noted above. [facility] Medical History Abnormal EKG Atrial septal defect Bladder cancer Chronic anticoagulation Hx of multiple sclerosis Hyperlipidemia Hypertension Kidney stones Multiple sclerosis Obstructive sleep apnea Paroxysmal atrial fibrillation Pulmonary embolism Recurrent UTI Syncope due to orthostatic hypotension Home Medications ocrelizumab 30 mg/mL intravenous solution (Ocrevus) 600 mg IV .COMPLEX multiple sclerosis 11/04/17 [History Last Taken 05/24/22] cholecalciferol (vitamin D3) 25 mcg (1,000 unit) tablet 5,000 unit PO DAILY supplement 05/28/18 [History Last Taken 07/01/22] multivitamin with folic acid 400 mcg tablet 1 tab PO DAILY supplement 05/28/18 [History Last Taken 07/01/22] pantoprazole 40 mg tablet,delayed release 40 mg PO DAILY reflux 12/01/19 [History Last Taken 07/02/22] potassium citrate 15 mEq (1,620 mg) tablet,extended release 15 meq PO BID ##60 02/04/20 [Rx Last Taken 07/02/22] albuterol sulfate 2.5 mg/3 mL (0.083 %) solution for nebulization 2.5 mg (3 mL) inhalation Q4H PRN shortness of breath or wheezing #180 vials 01/17/21 [Rx Last Taken Unknown] lisinopril 20 mg tablet 20 mg PO DAILY 07/18/21 [History Last Taken 07/01/22] duloxetine 60 mg capsule,delayed release 60 mg PO QHS nerve 07/02/22 [History Last Taken 07/01/22] meclizine 25 mg tablet 25 mg PO DAILY PRN Dizziness 07/02/22 [History Last Taken 07/02/22] tamsulosin 0.4 mg capsule 0.4 mg PO QHS 07/02/22 [History Last Taken 07/01/22] tizanidine 4 mg tablet 4 mg PO Q8H PRN muscles 07/02/22 [History Last Taken 2 Weeks Ago ~06/18/22] carvedilol 12.5 mg tablet (Coreg) 12.5 mg PO BID #180 tabs 11/08/22 [Rx Last Taken Unknown] apixaban 5 mg tablet 5 mg PO BID blood thinner #180 tabs 05/15/23 [Rx Last Taken Unknown] simvastatin 20 mg tablet 20 mg PO QHS 07/02/23 [History Last Taken Unknown] furosemide 40 mg tablet (Lasix) 40 mg PO DAILY #90 tabs 07/03/23 [Rx Last Taken Unknown] lisdexamfetamine 50 mg capsule 50 mg PO DAILY MS 07/03/23 [History Last Taken Unknown] sodium bicarbonate 650 mg tablet 650 mg PO BID 07/03/23 [History Last Taken Unknown] Allergy/AdvReac Type Severity Reaction Status Date / Time No Known Allergies Allergy Verified 07/03/23 08:59 Family History Father CAD (coronary artery disease) Hypertension Myocardial infarction Mother Hypertension Sister Multiple sclerosis Surgical History History of bladder surgery History of lithotripsy History of vasectomy S/P ureteral stent placement Social History household members: spouse and family Smoking Status: Never smoker alcohol intake: never substance use type: does not use caffeine: Yes (very little) Physical Exam Const alert, oriented x3 and no apparent distress General Appearance: cooperative HEENT normocephalic and head/scalp atraumatic Eyes PERRL and EOMs intact bilaterally Neck supple and No nodes Resp clear to auscultation bilaterally Auscultation: diminished lung sounds Cardio regular rate and regular rhythm GI soft to palpation, non-tender and non-distended Extremity General Extremity: edema Skin no rashes or lesions noted Neuro CN's II-XII intact bilaterally Lab / Micro Data Attestation: I reviewed the patient's lab results. 07/30/23 05:33 07/30/23 05:33 Labs: Laboratory Results - last 24 hr 07/30/23 14:40: Vancomycin Trough 11.0 Micro: Microbiology 07/29/23 02:35 Urine, Catheterized Urine Culture - Final Staphylococcus simulans Radiology Impression Abdomen/Pelvis CT 07/30/23 07:59 IMPRESSION: Mild degree of left hydronephrosis due to a 1.8 cm calculus in the left renal pelvis. Tiny nonobstructive left intrarenal calculi. Stable cyst in the upper pole of the left kidney. Mild degree of bibasilar atelectasis. Elevation of the left hemidiaphragm. Circumferential wall thickening of the rectosigmoid colon. Electronically Signed: Bc Bishop MD at 12:22 EDT ,
[2023-07-31] MEDS: 0.9% Saline Lock 10 ML Syringe IV (11:00)
--- NOTE | 2023-07-31 13:49 | DCINST_ITS ---
Discharge Instructions Diet Discharge Diet: No restrictions Activity Discharge Activity: Return to Normal Activity Weight Bearing Status: Weight bearing as tolerated Follow Up Care Please Follow Up With: Robert John MD When: As needed Test Results: Test results from this visit will be discussed in further detail at your follow- up appointment, if applicable. Pending Tests Upon Discharge: None Discharge Plan Admission Admit Date/Time: 07/29/23 04:33 Primary Reason for Your Visit: UTI, COVID Attending Provider: Jose Sarmiento Primary Care Provider: Robert John Consulting Providers: Hamilton Alford; Otoniel Ni; Julio C Liz; Zoran Segundo; Alex Meng; Sita Cyr NP; Uzair Mendoza Instructions Additional Instructions / Restrictions: Please take cephalexin (oral antibiotic) 3 times daily for the next 14 days for treatment of your urinary tract infection. Please take prednisone 40 mg daily for the next 7 days for treatment of your COVID infection. I will call Dr. Bernardo's office to make sure you can get an appointment with him soon to address your large kidney stone. Please STOP taking your home lisinopril (blood pressure medication) for now, as your blood pressures were borderline low while here in the hospital. Follow-up with your primary care provider in the next few weeks, and they can consider restarting this medication as needed. Discharge Orders/Prescriptions Prescriptions: New cephalexin 500 mg capsule 500 mg PO TID 14 Days Qty: 42 0RF prednisone 20 mg tablet 40 mg PO DAILY 7 Days Qty: 14 0RF Continued ocrelizumab [Ocrevus] 30 mg/mL solution 600 mg IV .COMPLEX Patient Comments: every 6 months Rx Instructions: every 6 months simvastatin 20 mg tablet 20 mg PO QHS sodium bicarbonate 650 mg tablet 650 mg PO BID Patient Comments: TAKE 1 TABLET BY MOUTH TWICE A DAY furosemide [Lasix] 40 mg tablet 40 mg PO DAILY Qty: 90 1RF cholecalciferol (vitamin D3) 1,000 UNIT tablet 5,000 unit PO DAILY Patient Comments: vitamin multivitamin with folic acid 1 TABLET tablet 1 tab PO DAILY Patient Comments: vitamin pantoprazole 40 MG tablet 40 mg PO DAILY lisdexamfetamine 50 mg capsule 50 mg PO DAILY Patient Comments: add potassium citrate 15 MEQ tablet extended release 15 meq PO BID Qty: 60 5RF tizanidine 4 mg tablet 4 mg PO Q8H PRN (Reason: muscles) Patient Comments: TAKE ONE TABLET BY MOUTH EVERY 8 HOURS NEEDED FOR MUSCLE SPASMS meclizine 25 mg tablet 25 mg PO DAILY PRN (Reason: Dizziness) Patient Comments: TAKE 1 TABLET BY MOUTH TWICE A DAY NEEDED duloxetine 60 mg capsule,delayed release(DR/EC) 60 mg PO QHS Patient Comments: TAKE 1 CAPSULE BY MOUTH EVERY DAY tamsulosin 0.4 mg capsule 0.4 mg PO QHS albuterol sulfate 2.5 mg /3 mL (0.083 %) solution for nebulization 2.5 mg INHALATION Q4H PRN (Reason: shortness of breath or wheezing) Qty: 180 6RF carvedilol [Coreg] 12.5 mg tablet 12.5 mg PO BID Qty: 180 3RF Rx Instructions: must administer with a meal/food apixaban 5 mg tablet 5 mg PO BID Qty: 180 6RF Discontinued lisinopril 20 mg tablet 20 mg PO DAILY Referrals / Follow Up: Robert John MD [Primary Care Provider] - Disposition Disposition (needs filled in before D/C Order can be placed): Home, Self Care
--- NOTE | 2023-07-31 14:04 | PCM.DC.SUM ---
Providers Date of Admission: 07/29/23 Date of Discharge: 07/31/23 Primary Care Physician: Dr. Robert John MD Consultations 07/29/23 05:03 Consult: Paintless Dent Repair Technician / Pulmonary Medicine Routine Consulting Provider: Pulmonary Medicine fiorella [place] Reason for Consult: ICU management EMERGENT Consult: No Notified: Yes Date Notified: 07/29/23 Time Notified: 04:37 Method of Notification: Text 07/31/23 08:15 Consult: Infectious Disease Routine Consulting Provider: Uzair Mendoza Reason for Consult: complicated UTI EMERGENT Consult: No Notified: Yes Date Notified: 07/31/23 Time Notified: 08:15 Method of Notification: Text Reason For Visit: URINARY TRACT INFECTION, HYPOTENSION, COVID 19 Diagnosis Discharge Diagnosis (1) COVID-19: Status: Acute Code(s): U07.1 - COVID-19 (2) LUPE (acute kidney injury): Status: Acute Code(s): N17.9 - Acute kidney failure, unspecified (3) Urinary tract infection: Status: Acute Code(s): N39.0 - Urinary tract infection, site not specified (4) Left renal stone: Status: Acute Code(s): N20.0 - Calculus of kidney Medications at Discharge Home Medications ocrelizumab 30 mg/mL intravenous solution (Ocrevus) 600 mg IV .COMPLEX multiple sclerosis 11/04/17 cholecalciferol (vitamin D3) 25 mcg (1,000 unit) tablet 5,000 unit PO DAILY supplement 05/28/18 multivitamin with folic acid 400 mcg tablet 1 tab PO DAILY supplement 05/28/18 pantoprazole 40 mg tablet,delayed release 40 mg PO DAILY reflux 12/01/19 potassium citrate 15 mEq (1,620 mg) tablet,extended release 15 meq PO BID ##60 02/04/20 albuterol sulfate 2.5 mg/3 mL (0.083 %) solution for nebulization 2.5 mg (3 mL) inhalation Q4H PRN shortness of breath or wheezing #180 vials 01/17/21 duloxetine 60 mg capsule,delayed release 60 mg PO QHS nerve 07/02/22 meclizine 25 mg tablet 25 mg PO DAILY PRN Dizziness 07/02/22 tamsulosin 0.4 mg capsule 0.4 mg PO QHS 07/02/22 tizanidine 4 mg tablet 4 mg PO Q8H PRN muscles 07/02/22 carvedilol 12.5 mg tablet (Coreg) 12.5 mg PO BID #180 tabs 11/08/22 apixaban 5 mg tablet 5 mg PO BID blood thinner #180 tabs 05/15/23 simvastatin 20 mg tablet 20 mg PO QHS 07/02/23 furosemide 40 mg tablet (Lasix) 40 mg PO DAILY #90 tabs 07/03/23 lisdexamfetamine 50 mg capsule 50 mg PO DAILY MS 07/03/23 sodium bicarbonate 650 mg tablet 650 mg PO BID 07/03/23 cephalexin 500 mg capsule 500 mg PO TID 14 days #42 caps 07/31/23 prednisone 20 mg tablet 40 mg (2 x 20 mg) PO DAILY 7 days #14 tabs 07/31/23 Hospital Course Summary of Care Provided Minutes Spent on Discharge: 38 Hospital Course: Patient is a 68-year-old male with history of MS with functional paraplegia (wheelchair-bound), recurrent UTIs with ureteral stent placement, remote bladder cancer, paroxysmal A-fib on Eliquis, hypertension and hyperlipidemia who presented to [facility] ED on 07/29 with worsening fatigue and lightheadedness. Medical problems addressed during hospitalization as noted below. Complicated UTI: With known history of recurrent UTIs with previous ureteral stent placement. Patient presented with sepsis without shock. Was hypotensive on admission requiring ICU admission. Blood pressure improved fairly quickly with IV fluid resuscitation, did not require pressors. Was transferred out of the ICU on evening of 07/29, and remained stable after transfer. UA showed 500 leukocyte esterase, negative nitrates, 50-100 white blood cells, 4+ bacteria. Urine culture grew Staphylococcus simulans. CT abdomen pelvis with IV contrast showed a 1.8 cm renal calculus in the left renal pelvis with mild degree of left hydronephrosis. ID followed, noted that CT showed no pyelonephrosis or abscess. Narrowed vancomycin and Zosyn started on admission to ceftriaxone. Patient discharged home on p.o. Keflex 500 mg 3 times daily with plan for 2-week course. Planning for close outpatient follow-up with urology, and can consider stopping antibiotics prior to completion of full course if stone is addressed. Large left-sided renal calculus: CT abdomen pelvis showed 1.8 cm renal calculus in the left renal pelvis as noted above. We unfortunately do not have urology services available in the hospital this week. Patient has notably had multiple kidney stones in the past and follows with Dr. Bernardo with urology. Has had both lithotripsy as well as intervention in the past per patient. Patient had no pain related to this kidney stone throughout admission. Recommended close outpatient follow-up with Dr. Bernardo for further management. COVID-19 infection: COVID-positive in the ED. Chest x-ray with findings suspicious for left lower lobe consolidation versus effusion. Required up to 4 L nasal cannula during the admission. Was weaned to room air prior to discharge and maintain saturations greater than 90%. Did not require oxygen on discharge. Was treated with Decadron and remdesivir while inpatient. Okay for short course of steroids on discharge given concomitant diagnosis of MS as noted below. Multiple sclerosis with functional paraplegia: Diagnosed approximately 30 years ago. Wheelchair-bound at baseline. Lives at home with , has had no issues taking himself with assistance at home. No history of severe flares. Was at his baseline throughout this hospitalization. Discharged on short course of steroids as noted above, with plan to restart home medications on discharge. Discharge diagnoses: ? Sepsis without shock, resolved ? Complicated UTI ? Large left-sided renal calculus ? COVID 19 infection with acute hypoxia, resolved ? LUEP, resolved ? Multiple sclerosis with functional paraplegia ? Hypertension ? Paroxysmal A-fib ? Hyperlipidemia ? GERD PCP follow-up: Strongly recommend seeing urology in the office in the next 1 to 2 weeks for management of his large left-sided kidney stone. Ucx with MS-wellington le. CT showed no pyelo or abscess, but did have 1.8cm L stone with some mild hydro. Will narrow vanc/zosyn to ceftriaxone. Plan will be home with po keflex 500mg tid for 2 weeks with urology followup prior to stopping to see if stone can be addressed. Total clinical time spent by myself addressing the patient's discharge needs: 38 minutes. Physical Exam Const alert and oriented x3 Constitutional Narrative: Pleasant male, obese, sitting comfortably in bed, conversing normally, no acute distress. Satting well on room air, no increased work of breathing noted. General Appearance: cooperative, comfortable, well kempt and well developed HEENT normocephalic, head/scalp atraumatic, hearing grossly normal bilaterally, nasal mucous membranes and turbinates normal and moist oral mucous membranes Eyes PERRL, EOMs intact bilaterally and conjunctivae normal Neck full ROM, no lymphadenopathy and supple Lymph Lymphatic: no lymphadenopathy noted Chest inspection of chest normal Resp normal respiratory effort, normal air movement, no use of accessory muscles and clear to auscultation bilaterally Cardio regular rate, regular rhythm, no murmurs and peripheral pulses 2+ throughout GI normal to inspection, nondistended, normoactive bowel sounds, soft to palpation, non-tender and non-distended Narrative: No suprapubic tenderness noted. Back/Spine normal ROM Extremity normal to inspection, full ROM and no pedal edema Skin no rashes or lesions noted Psych mental status grossly normal Weight / BMI Weight Weight: 145.6 kg Body Mass Index (BMI) 37.0 ABG / Lab / Microbiology Data 07/30/23 05:33 07/30/23 05:33 Laboratory: Laboratory Results - last 24 hr 07/30/23 14:40: Vancomycin Trough 11.0 Microbiology: Microbiology 07/29/23 02:10 Blood Culture (Wb) - Left Forearm Blood Culture - Preliminary No growth in 48 hours. 07/29/23 02:10 Blood Culture (Wb) - Right Wrist Blood Culture - Preliminary No growth in 48 hours. 07/29/23 02:35 Urine, Catheterized Urine Culture - Final Staphylococcus simulans 07/29/23 02:40 Nasal Secretion SARS-CoV-2 & FLU Antigen (Rapid) - Final SARS-CoV-2 (COVID 19) D/C Instructions Discharge Diet: No restrictions Weight Bearing Status: Weight bearing as tolerated Pending Tests Upon Discharge: None Please Follow Up With: Robert John MD When: As needed Meaningful Use Info Meaningful Use Diagnoses (Choose all that apply): None applicable Discharge Plan Admission Admit Date/Time: 07/29/23 04:33 Primary Reason for Your Visit: UTI, COVID Attending Provider: Jose Sarmiento Primary Care Provider: Robert John Consulting Providers: Hamilton Alford; Otoniel Ni; Julio C Liz; Zoran Segundo; Alex Meng; Sita Cyr NP; Uzair Mendoza Instructions Additional Instructions / Restrictions: Please take cephalexin (oral antibiotic) 3 times daily for the next 14 days for treatment of your urinary tract infection. Please take prednisone 40 mg daily for the next 7 days for treatment of your COVID infection. I will call Dr. Bernardo's office to make sure you can get an appointment with him soon to address your large kidney stone. Please STOP taking your home lisinopril (blood pressure medication) for now, as your blood pressures were borderline low while here in the hospital. Follow-up with your primary care provider in the next few weeks, and they can consider restarting this medication as needed. Discharge Orders/Prescriptions Prescriptions: New cephalexin 500 mg capsule 500 mg PO TID 14 Days Qty: 42 0RF prednisone 20 mg tablet 40 mg PO DAILY 7 Days Qty: 14 0RF Continued ocrelizumab [Ocrevus] 30 mg/mL solution 600 mg IV .COMPLEX Patient Comments: every 6 months Rx Instructions: every 6 months simvastatin 20 mg tablet 20 mg PO QHS sodium bicarbonate 650 mg tablet 650 mg PO BID Patient Comments: TAKE 1 TABLET BY MOUTH TWICE A DAY furosemide [Lasix] 40 mg tablet 40 mg PO DAILY Qty: 90 1RF cholecalciferol (vitamin D3) 1,000 UNIT tablet 5,000 unit PO DAILY Patient Comments: vitamin multivitamin with folic acid 1 TABLET tablet 1 tab PO DAILY Patient Comments: vitamin pantoprazole 40 MG tablet 40 mg PO DAILY lisdexamfetamine 50 mg capsule 50 mg PO DAILY Patient Comments: add potassium citrate 15 MEQ tablet extended release 15 meq PO BID Qty: 60 5RF tizanidine 4 mg tablet 4 mg PO Q8H PRN (Reason: muscles) Patient Comments: TAKE ONE TABLET BY MOUTH EVERY 8 HOURS NEEDED FOR MUSCLE SPASMS meclizine 25 mg tablet 25 mg PO DAILY PRN (Reason: Dizziness) Patient Comments: TAKE 1 TABLET BY MOUTH TWICE A DAY NEEDED duloxetine 60 mg capsule,delayed release(DR/EC) 60 mg PO QHS Patient Comments: TAKE 1 CAPSULE BY MOUTH EVERY DAY tamsulosin 0.4 mg capsule 0.4 mg PO QHS albuterol sulfate 2.5 mg /3 mL (0.083 %) solution for nebulization 2.5 mg INHALATION Q4H PRN (Reason: shortness of breath or wheezing) Qty: 180 6RF carvedilol [Coreg] 12.5 mg tablet 12.5 mg PO BID Qty: 180 3RF Rx Instructions: must administer with a meal/food apixaban 5 mg tablet 5 mg PO BID Qty: 180 6RF Discontinued lisinopril 20 mg tablet 20 mg PO DAILY Referrals / Follow Up: Older,Aura QUARANTINE INSPECTOR, QUARANTINE INSPECTOR-C [Non-Staff] - 08/11/23 1:20 pm Disposition Disposition (needs filled in before D/C Order can be placed): Home, Self Care Charges/Coding Visit Charges Inpatient E&M: 08124 Disch Hosp >30min
--- NOTE | 2023-07-31 15:27 | CASEMGMT ---
Patient has order for discharge. RN CM in to discuss needs at discharge. Patient denies needs at discharge. Patient aware to follow-up with PCP. Patient had no further questions or concerns at this time.
== END 2023-07-31 17:02 | disposition home or self-care (01) | DRG 871 ==
LOC: ED 04:17 → ICU 04:43 → PCU 19:54
PROVIDERS: Internal Medicine Critical Care Medicine; Admitting Provider Family Medicine; Emergency Provider Emergency Medicine; PCP Internal Medicine; Visit Provider Hospitalist
DX: A41.9 Sepsis, unspecified organism (principal); U07.1 COVID-19; J12.82 Pneumonia due to coronavirus disease 2019; N17.9 Acute kidney failure, unspecified; N13.6 Pyonephrosis; N39.0 Urinary tract infection, site not specified; F44.4 Conversion disorder with motor symptom or deficit; G35 Multiple sclerosis; I48.0 Paroxysmal atrial fibrillation; I10 Essential (primary) hypertension; E78.5 Hyperlipidemia, unspecified; K21.9 Gastro-esophageal reflux disease without esophagitis; R60.0 Localized edema; R09.02 Hypoxemia; Z79.52 Long term (current) use of systemic steroids; Z99.3 Dependence on wheelchair; Z87.440 Personal history of urinary (tract) infections; Z85.51 Personal history of malignant neoplasm of bladder; Z87.442 Personal history of urinary calculi
CPT/HCPCS: 36415; 71045; 74177; 76770; 80048; 80053; 80202; 81001; 83605; 84075; 85025; 85027; 87040; 87077; 87086; 87088; 87186; 87428; 94002; 94003; 94762; 97110; 97166; 99285; J7030; J7040; J7050; Q9967; A4216; J0248; J0696

== ENCOUNTER 2023-08-11 20:49 | Inpatient (IN) | payer MEDICARE, SELFPAY ==
[2023-08-11 20:50] VITALS: BP 116/63; PULSE 83; RESP 20; TEMP 37.7; O2SAT 90; BMI 35.7
[2023-08-11 20:53] VITALS: O2SAT 92
--- NOTE | 2023-08-11 21:10 | EKG12_ITS ---
Test Reason : WEAKNESS Blood Pressure : / mmHG Vent. Rate : 078 BPM Atrial Rate : 078 BPM P-R Int : 202 ms QRS Dur : 128 ms QT Int : 408 ms P-R-T Axes : 019 -51 112 degrees QTc Int : 465 ms Normal sinus rhythm Left axis deviation Left bundle branch block Abnormal ECG When compared with ECG of 03-JUL-2022 05:12, AR interval has decreased Left bundle branch block is now Present Confirmed by KAT WINCHESTER, YA ([id number]), editorial director TRACIE MUÑOZ ([id number]) on 08/13/2023 10:00:44 AM Referred By: Hamilton Alford Confirmed By:KIMBERLY STEPHENS MD
[2023-08-11 21:30] LABS: Absolute Lymphocyte Count 1.42 X10^3/uL (0.83-4.51); Absolute Neutrophil Count 3.9 X10^3/uL (2.0-7.7); Basophil# 0.02 X10^3/uL; Basophil% 0.3 % (0-1); Eosinophil# 0.18 X10^3/uL; Eosinophils% 2.9 % (0-5); Hematocrit 44.6 % (40-54); Hemoglobin 13.6 g/dL (13.0-16.5); Lymphocyte # 1.42 X10^3/ul (0.83-4.51); Lymphocyte % 22.5 % (19-41); Mean Corp Hgb Conc 30.5 g/dL (32-36); Mean Corpuscular Volume 88.5 fL (80-94); Mean Platelet Vol. 9.2 fl (6.2-12.0); Monocyte# 0.79 X10^3/uL; Monocyte% 12.5 % (0-10); NRBC Flagged by Analyzer 0 % (0-5); Neutrophil # 3.86 X10^3/uL (2.7-7.7); Neutrophil % 61.2 % (47-70); Platelet Count 121 K/mm3 (150-450); RBC Distribution Width CV 15.3 % (11.6-14.6); RBC Distribution Width SD 49.8 fl (35.1-43.9); Red Blood Count 5.04 M/mm3 (4.6-6.2); White Blood Count 6.3 K/mm3 (4.4-11.0)
[2023-08-11] MEDS: 0.9% Normal Saline (1000mL) 1,000 ML 1000 ML IV (21:30)
--- NOTE | 2023-08-11 21:33 | RAD_ITS ---
INDICATION: weakness EXAMINATION/TECHNIQUE: X-RAY - XR Chest 1 View COMPARISON: 07/29/2023 FINDINGS: Interval worsening of now multifocal pneumonia. The cardiomediastinal silhouette is stable. No pleural effusion or pneumothorax. The osseous structures are unchanged. RAD/Chest 1 View (Portable) IMPRESSION: Interval worsening of now multifocal pneumonia. No other change from prior. Electronically Signed: Jovan Haskins MD at 23:00 EDT ,
[2023-08-11 22:06] LABS: Bacteria 0 SEEN /hpf (None Seen); Mucous, Urine 0 SEEN /hpf (<or=2+)
[2023-08-11 22:07] LABS: Color, Urine Yellow (Yellow); Glucose, Dipstick Normal (Normal); Ketone-Dipstick Negative (Negative); Leukocyte Esterase-Dipstick 500 /ul (Negative); Nitrite-Dipstick Negative (Negative); Occult Blood-Urine 10 /ul (Negative); Protein-Dipstick 100 mg/dl (Negative); Urine Bilirubin Dipstick Negative (Negative); Urine Clarity Sl. Cloudy (Clear); Urine Urobilinogen 1 mg/dl (Normal)
[2023-08-11 22:13] LABS: Amorphous Sediment 1+ PHOS; Red Blood Cells-Urine 0-5 SEEN /hpf (0-5); Squamous Epithelial Cells - UA 0-5 SEEN /hpf (0-5); White Blood Cells 25-50 SEEN /hpf (0-5)
[2023-08-11 22:16] LABS: ALB/GLOB Ratio 0.6 RATIO (0.9-2.4); AST(SGOT) 20 U/L (15-37); Alanine Aminotransfer ALT/SGPT 23 U/L (16-61); Albumin, Serum 2.3 g/dL (3.2-5.0); Alkaline Phosphatase 83 U/L (45-117); Anion Gap 5 (5-15); BUN 24 mg/dL (7-18); BUN/Creat Ratio 16.1 RATIO (10-20); Calcium,Total 8.1 mg/dL (8.5-10.1); Chloride 107 mmol/L (98-107); Creatinine, Serum 1.49 mg/dL (0.70-1.30); EST Glomerular Filtration Rate 50 mL/min (>60); Est Glom Filt Rate - Afr Amer 61 mL/min (>60); Estimated Creatinine Clearance 63.05 ml/min; Globulin 3.7 g/dL (2.2-4.2); Glucose 102 mg/dL (74-106); Potassium 3.8 mmol/L (3.5-5.1); Sodium Level 142 mmol/L (136-145)
[2023-08-11 22:21] VITALS: BP 73/57; PULSE 80; RESP 17; O2SAT 92
[2023-08-11] MEDS: 0.9% Normal Saline (1000mL) 1,000 ML 999 ML IV (22:35)
--- NOTE | 2023-08-11 22:37 | EDS_ITS ---
HPI History of Present Illness Chief Complaint: Weakness Informant: patient Narrative Narrative: Patient is a 68-year-old male with history of recent admission for hypotension, sepsis and LUPE secondary to complicated UTI with history of wheelchair-bound, multiple sclerosis and bladder cancer as well as pulmonary emboli (on Eliquis) and currently still on Keflex presenting for low blood pressure. Patient took his evening meds and then he fell asleep. He woke up and was seeing dots. His checked his blood pressure at home it was 72/40 and 68/43. She also notes his heart rate was low. She states he has only felt great since leaving the hospital. He did have a large bowel movement this evening and before that had been constipated from being in the hospital. does note that patient is not been taking in very good oral intake since being discharged from the hospital. Chart review from most recent inpatient stay shows patient was admitted from 07/29 to 07/31 and initially in the ICU for hypotension. He was fluid responsive and did not require pressors. He also was found have COVID-19 at that time. He was found to have a large left-sided renal calculus, 1.8 cm in the left renal pelvis. Patient notes that they contacted Dr. Bernardo's office today for follow- up on that. Urine culture grew staph simulans. [facility] Medical History Abnormal EKG Atrial septal defect Bladder cancer Chronic anticoagulation Hx of multiple sclerosis Hyperlipidemia Hypertension Kidney stones Multiple sclerosis Obstructive sleep apnea Paroxysmal atrial fibrillation Pulmonary embolism Recurrent UTI Syncope due to orthostatic hypotension Home Medications ocrelizumab 30 mg/mL intravenous solution (Ocrevus) 600 mg IV .COMPLEX multiple sclerosis 11/04/17 [History Last Taken 05/24/22] cholecalciferol (vitamin D3) 25 mcg (1,000 unit) tablet 5,000 unit PO DAILY supplement 05/28/18 [History Last Taken 07/01/22] multivitamin with folic acid 400 mcg tablet 1 tab PO DAILY supplement 05/28/18 [History Last Taken 07/01/22] pantoprazole 40 mg tablet,delayed release 40 mg PO DAILY reflux 12/01/19 [History Last Taken 07/02/22] potassium citrate 15 mEq (1,620 mg) tablet,extended release 15 meq PO BID ##60 02/04/20 [Rx Last Taken 07/02/22] albuterol sulfate 2.5 mg/3 mL (0.083 %) solution for nebulization 2.5 mg (3 mL) inhalation Q4H PRN shortness of breath or wheezing #180 vials 01/17/21 [Rx Last Taken Unknown] duloxetine 60 mg capsule,delayed release 60 mg PO QHS nerve 07/02/22 [History Last Taken 07/01/22] meclizine 25 mg tablet 25 mg PO DAILY PRN Dizziness 07/02/22 [History Last Taken 07/02/22] tamsulosin 0.4 mg capsule 0.4 mg PO QHS 07/02/22 [History Last Taken 07/01/22] tizanidine 4 mg tablet 4 mg PO Q8H PRN muscles 07/02/22 [History Last Taken 2 Weeks Ago ~06/18/22] carvedilol 12.5 mg tablet (Coreg) 12.5 mg PO BID #180 tabs 11/08/22 [Rx Last Taken Unknown] apixaban 5 mg tablet 5 mg PO BID blood thinner #180 tabs 05/15/23 [Rx Last Taken Unknown] simvastatin 20 mg tablet 20 mg PO QHS 07/02/23 [History Last Taken Unknown] furosemide 40 mg tablet (Lasix) 40 mg PO DAILY #90 tabs 07/03/23 [Rx Last Taken Unknown] lisdexamfetamine 50 mg capsule 50 mg PO DAILY MS 07/03/23 [History Last Taken Unknown] sodium bicarbonate 650 mg tablet 650 mg PO BID 07/03/23 [History Last Taken Unknown] cephalexin 500 mg capsule 500 mg PO TID 14 days #42 caps 07/31/23 [Rx Last Taken Unknown] lisinopril 20 mg tablet 20 mg PO DAILY 08/11/23 [History Last Taken Unknown] Allergy/AdvReac Type Severity Reaction Status Date / Time No Known Allergies Allergy Verified 08/11/23 20:52 Family History Father CAD (coronary artery disease) Hypertension Myocardial infarction Mother Hypertension Sister Multiple sclerosis Surgical History History of bladder surgery History of lithotripsy History of vasectomy S/P ureteral stent placement Social History household members: spouse and family Smoking Status: Never smoker alcohol intake: never substance use type: does not use caffeine: Yes (very little) ROS ROS ED Constitutional Constitutional ED: Reports other; Denies chills or fever(s) Cardiovascular Cardiovascular: Denies chest pain Respiratory/Chest Respiratory/Chest: Denies cough Gastrointestinal Gastrointestinal: Reports constipation; Denies abdominal pain, nausea or vomiting Musculoskeletal Musculoskeletal: Denies arthralgias or myalgias Integumentary Denies rash Neurologic Neurologic: Reports weakness; Denies headache(s) EXAM Physical Exam Const Vital Signs: 08/11/23 20:50 08/11/23 20:53 08/11/23 20:55 Temperature 99.9 F H Temperature Source Temporal Pulse Rate 83 Respiratory Rate 20 H Respiratory Effort Normal Short of Breath Blood Pressure 116/63 Blood Pressure Mean 80 Pulse Ox 90 92 Oxygen Delivery Method Room Air Nasal Cannula Oxygen Flow Rate (L/min) 2 08/11/23 22:21 08/11/23 23:28 Temperature 99.2 F H Temperature Source Oral Pulse Rate 80 Respiratory Rate 17 Respiratory Effort Blood Pressure 73/57 L 90/62 Blood Pressure Mean 62 71 Pulse Ox 92 Oxygen Delivery Method Nasal Cannula Oxygen Flow Rate (L/min) 2 Positive well nourished and well developed General Appearance ED: well developed and NAD HEENT Reports dry mucous membranes Mouth ED: Yes dry mucous membranes Mouth: dry mucous membranes Eyes PERRL and EOMs intact bilaterally Neck supple Chest Wall inspection of chest normal and palpation of chest normal Resp normal respiratory effort and clear to auscultation bilaterally Cardio regular rate and regular rhythm GI normal to inspection, nondistended, normoactive bowel sounds GI Narrative: Protuberant abdomen Palpation: soft; Negative for tender or guarding Extremity General Extremety ED: Negative for edema or tenderness General Extremity: Negative for edema Neuro oriented x3 Neuro Narrative: Patient has decreased movement especially on his left side secondary to his chronic multiple sclerosis Sensorium / Orientation: alert Psych mental status grossly normal Skin no rashes or lesions noted and no wounds MDM MDM MDM Narrative Medical decision making narrative: Patient is evaluated for hypotension and generalized weakness. Clinically does appear dehydrated. Started out received a liter of fluid in route by EMS. Upon arrival his blood pressure is 116/63. Is placed on maintenance fluids however he becomes hypotensive again it is given another liter bolus. He has a low- grade temperature of 99.9. He does not have a leukocytosis. He did have recently of COVID however he is on Eliquis have a low suspicion for pulmonary emboli. Hemoglobin is at his baseline. He has a mild LUPE with a creatinine of 1.49. At discharge his creatinine was 1. Lactate is normal. His urinalysis is concerning for infection again and culture will be sent. He had a large bowel movement today that was not reported to be bloody. His abdomen is soft. I do not think he requires abdominal imaging at this time. Case is discussed with hospitalist and given his hypotension will require admission. Is not entirely clear if this is secondary to sepsis or volume depletion at this time. Patient's EKG does not have any acute changes and he has no chest pain. Have a low suspicion for cardiogenic cause of his hypotension. His chest x-ray does show worsening multifocal infiltrate. He been discharged on room air but is now needing 2 L. I am not sure if this is just sequelae of his recent COVID infection that showing up more on chest x-ray or secondary pneumonia. He is not complaining of respiratory symptoms. He is on broad- spectrum antibiotics however that will cover for pneumonia as well. Lab Data Attestation: I reviewed the patient's lab results. Labs: Laboratory Results - last 24 hr 08/11/23 08/11/23 08/11/23 21:10 21:20 22:00 WBC 6.3 RBC 5.04 Hgb 13.6 Hct 44.6 MCV 88.5 MCH 27.0 MCHC 30.5 L RDW Std Deviation 49.8 H RDW Coeff of Bravo 15.3 H Plt Count 121 L MPV 9.2 Immature Gran % (Auto) 0.600 Neut % (Auto) 61.2 Lymph % (Auto) 22.5 [place] % (Auto) 12.5 H Eos % (Auto) 2.9 Baso % (Auto) 0.3 Absolute Neuts (auto) 3.9 Absolute Lymphs (auto) 1.42 Nucleated RBC % 0 Sodium 142 Potassium 3.8 Chloride 107 Carbon Dioxide 30.0 Anion Gap 5 BUN 24 H Creatinine 1.49 H Estim Creat Clear Calc 63.05 Est GFR (MDRD) Af Amer 61 Est GFR (MDRD) Non-Af 50 L BUN/Creatinine Ratio 16.1 Glucose 102 Lactic Acid 1.0 Calcium 8.1 L Total Bilirubin 0.40 AST 20 ALT 23 Alkaline Phosphatase 83 Total Protein 6.0 L Albumin 2.3 L Globulin 3.7 Albumin/Globulin Ratio 0.6 L Urine Color Yellow Urine Clarity Sl. Cloudy Urine pH 7.0 Ur Specific [place] 1.010 Urine Protein 100 H Urine Glucose (UA) Normal Urine Ketones Negative Urine Occult Blood 10 H Urine Nitrite Negative Urine Bilirubin Negative Urine Urobilinogen 1 H Ur Leukocyte Esterase 500 H Urine RBC 0-5 SEEN Urine WBC 25-50 SEEN Ur Squamous Epith Cells 0-5 SEEN Amorphous Sediment 1+ PHOS Urine Bacteria 0 SEEN Urine Mucus 0 SEEN Radiography Chest X-Ray - ED: 1 View, Read by ED Physician, Read by Radiologist, Right Infiltrate and Left Infiltrate Diagnostic Testing: Clinical Impression(s) from Imaging Studies Chest X-Ray 08/11/23 21:33 IMPRESSION: Interval worsening of now multifocal pneumonia. No other change from prior. Electronically Signed: Jovan Haskins MD at 23:00 EDT , Rhythm Strip Rhythm Strip: Sinus Rhythm Rate: 78 Ectopy: None EKG Initial EKG: Attestation: I personally reviewed and interpreted this EKG as follows: Interpretation: Sinus Rhythm Comments: Normal sinus rhythm at a rate of 78 bpm Left axis deviation Left bundle branch block Normal ST segments Compared to prior EKG patient is no longer in atrial fibrillation with RVR Management Discussion w/another healthcare provider: Hospitalist Discharge Plan Triage Chief Complaint: Weakness ED Provider: Marika Elizabeth Dx/Rx/DC Orders Clinical Impression: LUPE (acute kidney injury), Acute hypotension, Recurrent UTI Prescriptions: No Action ocrelizumab [Ocrevus] 30 mg/mL solution 600 mg IV .COMPLEX Patient Comments: every 6 months Rx Instructions: every 6 months simvastatin 20 mg tablet 20 mg PO QHS sodium bicarbonate 650 mg tablet 650 mg PO BID Patient Comments: TAKE 1 TABLET BY MOUTH TWICE A DAY furosemide [Lasix] 40 mg tablet 40 mg PO DAILY Qty: 90 1RF cholecalciferol (vitamin D3) 1,000 UNIT tablet 5,000 unit PO DAILY Patient Comments: vitamin multivitamin with folic acid 1 TABLET tablet 1 tab PO DAILY Patient Comments: vitamin pantoprazole 40 MG tablet 40 mg PO DAILY lisdexamfetamine 50 mg capsule 50 mg PO DAILY Patient Comments: add potassium citrate 15 MEQ tablet extended release 15 meq PO BID Qty: 60 5RF tizanidine 4 mg tablet 4 mg PO Q8H PRN (Reason: muscles) Patient Comments: TAKE ONE TABLET BY MOUTH EVERY 8 HOURS NEEDED FOR MUSCLE SPASMS meclizine 25 mg tablet 25 mg PO DAILY PRN (Reason: Dizziness) Patient Comments: TAKE 1 TABLET BY MOUTH TWICE A DAY NEEDED duloxetine 60 mg capsule,delayed release(DR/EC) 60 mg PO QHS Patient Comments: TAKE 1 CAPSULE BY MOUTH EVERY DAY tamsulosin 0.4 mg capsule 0.4 mg PO QHS cephalexin 500 mg capsule 500 mg PO TID 14 Days Qty: 42 0RF lisinopril 20 mg tablet 20 mg PO DAILY Patient Comments: TAKE 1 TABLET BY MOUTH EVERY DAY albuterol sulfate 2.5 mg /3 mL (0.083 %) solution for nebulization 2.5 mg INHALATION Q4H PRN (Reason: shortness of breath or wheezing) Qty: 180 6RF carvedilol [Coreg] 12.5 mg tablet 12.5 mg PO BID Qty: 180 3RF Rx Instructions: must administer with a meal/food apixaban 5 mg tablet 5 mg PO BID Qty: 180 6RF Primary Care Provider: Robert John Referrals: Robert John MD [Primary Care Provider] - Disposition Disposition: Acute Care Hospital [facility]
--- NOTE | 2023-08-11 23:01 | HP.PCM_ITS ---
HPI - General General Date of Admission: 08/11/23 Date of Service: 08/11/23 Chief Complaint: Hypotension and dizziness HPI Narrative NERY MIDDLETON, is a 68 M who presents to the emergency room with chief complaint of low blood pressure and dizziness. Patient was admitted previously this month with hypotension secondary to UTI which was fluid responsive in the ICU. He has been maintained on cephalexin postdischarge however the last day or 2 he has progressively become more lightheaded and starting to see stars in his vision. His blood pressure at home was in the 60s systolic and he was transported by ambulance to the emergency room. He initially responded to fluid bolus but then his pressure started to drop a little bit following that. He was started on IV antibiotics and maintain on IV fluids and will be admitted to the hospital overnight. Patient denies chest pain, shortness of breath, fever or chills and/or nausea or vomiting. He does have a significant history of MS diagnosed 30 years ago and is wheelchair-bound. [facility] Medical History Abnormal EKG Atrial septal defect Bladder cancer Chronic anticoagulation Hx of multiple sclerosis Hyperlipidemia Hypertension Kidney stones Multiple sclerosis Obstructive sleep apnea Paroxysmal atrial fibrillation Pulmonary embolism Recurrent UTI Syncope due to orthostatic hypotension Home Medications ocrelizumab 30 mg/mL intravenous solution (Ocrevus) 600 mg IV .COMPLEX multiple sclerosis 11/04/17 [History Last Taken 05/24/22] cholecalciferol (vitamin D3) 25 mcg (1,000 unit) tablet 5,000 unit PO DAILY supplement 05/28/18 [History Last Taken 07/01/22] multivitamin with folic acid 400 mcg tablet 1 tab PO DAILY supplement 05/28/18 [History Last Taken 07/01/22] pantoprazole 40 mg tablet,delayed release 40 mg PO DAILY reflux 12/01/19 [History Last Taken 07/02/22] potassium citrate 15 mEq (1,620 mg) tablet,extended release 15 meq PO BID ##60 02/04/20 [Rx Last Taken 07/02/22] albuterol sulfate 2.5 mg/3 mL (0.083 %) solution for nebulization 2.5 mg (3 mL) inhalation Q4H PRN shortness of breath or wheezing #180 vials 01/17/21 [Rx Last Taken Unknown] duloxetine 60 mg capsule,delayed release 60 mg PO QHS nerve 07/02/22 [History Last Taken 07/01/22] meclizine 25 mg tablet 25 mg PO DAILY PRN Dizziness 07/02/22 [History Last Taken 07/02/22] tamsulosin 0.4 mg capsule 0.4 mg PO QHS 07/02/22 [History Last Taken 07/01/22] tizanidine 4 mg tablet 4 mg PO Q8H PRN muscles 07/02/22 [History Last Taken 2 Weeks Ago ~06/18/22] carvedilol 12.5 mg tablet (Coreg) 12.5 mg PO BID #180 tabs 11/08/22 [Rx Last Taken Unknown] apixaban 5 mg tablet 5 mg PO BID blood thinner #180 tabs 05/15/23 [Rx Last Taken Unknown] simvastatin 20 mg tablet 20 mg PO QHS 07/02/23 [History Last Taken Unknown] furosemide 40 mg tablet (Lasix) 40 mg PO DAILY #90 tabs 07/03/23 [Rx Last Taken Unknown] lisdexamfetamine 50 mg capsule 50 mg PO DAILY MS 07/03/23 [History Last Taken Unknown] sodium bicarbonate 650 mg tablet 650 mg PO BID 07/03/23 [History Last Taken Unknown] cephalexin 500 mg capsule 500 mg PO TID 14 days #42 caps 07/31/23 [Rx Last Taken Unknown] prednisone 20 mg tablet 40 mg (2 x 20 mg) PO DAILY 7 days #14 tabs 07/31/23 [Rx Last Taken Unknown] Allergy/AdvReac Type Severity Reaction Status Date / Time No Known Allergies Allergy Verified 08/11/23 20:52 Family History Father CAD (coronary artery disease) Hypertension Myocardial infarction Mother Hypertension Sister Multiple sclerosis Surgical History History of bladder surgery History of lithotripsy History of vasectomy S/P ureteral stent placement Social History household members: spouse and family Smoking Status: Never smoker alcohol intake: never substance use type: does not use caffeine: Yes (very little) ROS Constitutional Constitutional: Reports weakness; Denies chills or fever(s) Eyes Eyes: Denies change in vision ENT HEENT: Denies abnormal hearing Cardiovascular Cardiovascular: Denies chest pain Respiratory/Chest Respiratory/Chest: Denies cough or shortness of breath at rest Gastrointestinal Gastrointestinal: Denies abdominal pain Genitourinary Genitourinary: Denies dysuria Musculoskeletal Musculoskeletal: Denies back pain Integumentary Integumentary: Denies dry skin Neurologic Neurologic: Reports dizziness Psychiatric Psychiatric: Denies anxiety Vital Signs Vital Signs Vital Signs: 08/11/23 20:50 08/11/23 20:53 08/11/23 20:55 Temperature 99.9 F H Temperature Source Temporal Pulse Rate 83 Respiratory Rate 20 H Respiratory Effort Normal Short of Breath Blood Pressure 116/63 Blood Pressure Mean 80 Pulse Ox 90 92 Oxygen Delivery Method Room Air Nasal Cannula Oxygen Flow Rate (L/min) 2 08/11/23 22:21 Temperature Temperature Source Pulse Rate 80 Respiratory Rate 17 Respiratory Effort Blood Pressure 73/57 L Blood Pressure Mean 62 Pulse Ox 92 Oxygen Delivery Method Nasal Cannula Oxygen Flow Rate (L/min) 2 Weight Weight: 309 lb 1.409 oz Body Mass Index (BMI) 35.7 Physical Exam Const alert and oriented x3 General Appearance: cooperative and well developed HEENT normocephalic and head/scalp atraumatic Eyes PERRL Neck no lymphadenopathy Lymph Lymphatic: no lymphadenopathy noted Resp normal air movement and clear to auscultation bilaterally Cardio regular rate, regular rhythm, S1 normal heart sound and S2 normal heart sound GI normal to inspection, nondistended, normoactive bowel sounds, soft to palpation and non-tender Extremity normal capillary refill Skin General Skin Exam: no breakdown Neuro no focal motor deficits and no sensory deficits noted Psych thought process normal, cooperative and affect normal Results Lab / Micro Data 08/11/23 21:20 08/11/23 21:20 Labs: Laboratory Results - last 24 hr 08/11/23 21:10: Lactic Acid 1.0 08/11/23 21:20: WBC 6.3, RBC 5.04, Hgb 13.6, Hct 44.6, MCV 88.5, MCH 27.0, MCHC 30.5 L, RDW Std Deviation 49.8 H, RDW Coeff of Bravo 15.3 H, Plt Count 121 L, MPV 9.2, Immature Gran % (Auto) 0.600, Neut % (Auto) 61.2, Lymph % (Auto) 22.5, [place] % (Auto) 12.5 H, Eos % (Auto) 2.9, Baso % (Auto) 0.3, Absolute Neuts (auto) 3.9, Absolute Lymphs (auto) 1.42, Nucleated RBC % 0, Sodium 142, Potassium 3.8, Chloride 107, Carbon Dioxide 30.0, Anion Gap 5, BUN 24 H, Creatinine 1.49 H, Estim Creat Clear Calc 63.05, Est GFR (MDRD) Af Amer 61, Est GFR (MDRD) Non-Af 50 L, BUN/Creatinine Ratio 16.1, Glucose 102, Calcium 8.1 L, Total Bilirubin 0.40, AST 20, ALT 23, Alkaline Phosphatase 83, Total Protein 6.0 L, Albumin 2.3 L, Globulin 3.7, Albumin/Globulin Ratio 0.6 L 08/11/23 22:00: Urine Color Yellow, Urine Clarity Sl. Cloudy, Urine pH 7.0, Ur Specific [place] 1.010, Urine Protein 100 H, Urine Glucose (UA) Normal, Urine Ketones Negative, Urine Occult Blood 10 H, Urine Nitrite Negative, Urine Bilirubin Negative, Urine Urobilinogen 1 H, Ur Leukocyte Esterase 500 H, Urine RBC 0-5 SEEN, Urine WBC 25-50 SEEN, Ur Squamous Epith Cells 0-5 SEEN, Amorphous Sediment 1+ PHOS, Urine Bacteria 0 SEEN, Urine Mucus 0 SEEN Rhythm Strip Rhythm Strip: Sinus Rhythm Rate: 78 Ectopy: None Radiology Impression Chest X-Ray 08/11/23 21:33 IMPRESSION: Interval worsening of now multifocal pneumonia. No other change from prior. Electronically Signed: Jovan Haskins MD at 23:00 EDT , Assessment & Plan Assessment/Plan (1) Acute hypotension: (2) LUPE (acute kidney injury): (3) Multiple sclerosis: (4) Recurrent UTI: PLAN: Plan 1 recurrent UTI with hypotension and acute kidney injury?admit patient to progressive care unit, IV hydration normal saline at 150 cc/h, continue vanc omycin and Zosyn initiated in the emergency room, repeat CBC BMP in the a.m. 2. MS due to hypotension we will hold medications overnight 3. DVT prophylaxis?SCDs due to acute kidney injury will not be using low molecular weight heparin Charges/Coding Visit Charges Inpatient E&M: 73783 Init Hosp L2
[2023-08-11] MEDS: 0.9% Normal Saline (1000mL) 1,000 ML 200 ML IV (23:23)
[2023-08-11] MEDS: Piperacil/Tazobactam 4.5 GM in 0.9% Normal Saline (100mL MB+) 100 ML IV (23:23)
[2023-08-11 23:28] VITALS: BP 90/62; TEMP 37.3
[2023-08-11] MEDS: Vancomycin HCl 2,000 MG in 0.9% Normal Saline (500mL Bag) 500 ML 250 MG IV (23:56)
[2023-08-12] VITALS (14 sets, daily range): BP systolic 90–138; BP diastolic 59–88; PULSE 67–80; RESP 16–20; TEMP 36.4–37.1; O2SAT 88–97; BMI 35.3
[2023-08-12] MEDS: Albuterol 2.5 MG/3 ML VIAL.NEB. INHALATION (01:41)
[2023-08-12] MEDS: 0.9% Normal Saline (1000mL) 1,000 ML 150 ML IV (04:50)
[2023-08-12 06:40] LABS: Absolute Lymphocyte Count 1.36 X10^3/uL (0.83-4.51); Absolute Neutrophil Count 2.4 X10^3/uL (2.0-7.7); Basophil# 0.02 X10^3/uL; Basophil% 0.4 % (0-1); Eosinophil# 0.14 X10^3/uL; Eosinophils% 3.1 % (0-5); Hematocrit 41.6 % (40-54); Hemoglobin 12.7 g/dL (13.0-16.5); Lymphocyte # 1.36 X10^3/ul (0.83-4.51); Lymphocyte % 30.1 % (19-41); Mean Corp Hgb Conc 30.5 g/dL (32-36); Mean Corpuscular Volume 88.5 fL (80-94); Mean Platelet Vol. 9.8 fl (6.2-12.0); Monocyte# 0.57 X10^3/uL; Monocyte% 12.6 % (0-10); NRBC Flagged by Analyzer 0 % (0-5); Neutrophil % 53.1 % (47-70); Platelet Count 119 K/mm3 (150-450); RBC Distribution Width CV 15.2 % (11.6-14.6); RBC Distribution Width SD 50.1 fl (35.1-43.9); White Blood Count 4.5 K/mm3 (4.4-11.0)
[2023-08-12 07:11] LABS: Anion Gap 4 (5-15); BUN 24 mg/dL (7-18); BUN/Creat Ratio 18.5 RATIO (10-20); Calcium,Total 7.5 mg/dL (8.5-10.1); Chloride 110 mmol/L (98-107); EST Glomerular Filtration Rate 59 mL/min (>60); Est Glom Filt Rate - Afr Amer 71 mL/min (>60); Estimated Creatinine Clearance 72.26 ml/min; Glucose 80 mg/dL (74-106); Potassium 3.4 mmol/L (3.5-5.1); Sodium Level 141 mmol/L (136-145)
[2023-08-12 08:32] LABS: BNP,B-Type NATRIURETIC PEPTIDE 33.1 pg/mL (0-100)
[2023-08-12 08:40] LABS: Procalcitonin 0.06 ng/mL (0.00-0.09)
--- NOTE | 2023-08-12 09:33 | CON.PCM.CC_ITS ---
Assessment & Plan Assessment/Plan (1) Hypotension: PLAN: Plan RECOMMENDATIONS: 1. Wean supplemental oxygen to maintain saturations at or above 90%. 2. Levaquin is ordered. 3. Initiate incentive spirometry/Pep therapy 4. Start BiPAP therapy per home regimen, with naps and nightly. 5. Stop continuous IV fluids. IMPRESSIONS: 1. Hypoxemia Unclear etiology for the patient's hypoxemia. While a secondary bacterial pneumonia in the setting of his recent COVID is a possibility, the patient did receive antimicrobials during his last hospitalization for his urinary tract infection, which should have covered any pulmonary sources of infection. I do suspect a component of atelectasis as well. For now, I am going to error on the side of caution and place the patient empirically on Levaquin. In addition, he will be started on his home BiPAP with naps and nightly. Incentive spirometry and Pep therapy will be ordered for the patient. Continue to wean supplemental oxygen as tolerated to maintain saturations at or above 90%. Stop continuous IV fluids. 2. Acute kidney injury Most likely prerenal in etiology in the setting of #1. Creatinine has improved with volume expansion. Continue to monitor urine output. No current indication for renal replacement therapy. 3. History of obstructive sleep apnea The patient is maintained on nocturnal BiPAP therapy 21/17 cmH2O on an outpatient basis. Recommend continuing the aforementioned while admitted to the hospital. 4. History of bladder CA in remission/history of venous thromboembolic disease/Baseline MS/GERD/hypertension Complicates care, management, recovery and prognosis. Continue home Eliquis. This note was generated with Original dictation software. It may contain incorrect words, spelling, and punctuation that were not noted in checking the note before signing. HPI Consult Data Date of Consult: 08/12/23 HPI Narrative Reason for Consultation: Hypoxemia HPI Narrative: The patient is a 68-year-old male, with a history as outlined below, who presented to the emergency department on August 11 with weakness, dizziness and lightheadedness. The patient was recently discharged from the hospital on August 01 after having been admitted with hypotension along with COVID-19 pneumonia and acute kidney injury. The patient stated that for the last 9 days he has been constipated and unable to have a bowel movement. His has been providing him with a stool softener. He stated that last night he started to have large bowel movements and subsequently developed dizziness and lightheadedness. The patient has a known history of obstructive sleep apnea, multiple sclerosis, paroxysmal atrial fibrillation, prior pulmonary embolism, hypertension and hyperlipidemia. The patient does not utilize supplemental oxygen at his baseline. He has been compliant with prescribed outpatient CPAP therapy. The patient currently denies any shortness of breath or cough. On presentation to the emergency department, the patient was noted to have some borderline low blood pressure readings. Initial laboratory evaluation demonstrated no evidence of a leukocytosis. Chemistry profile was notable for a creatinine of 1.49. BNP was normal. Procalcitonin was normal. Chest x-ray demonstrated multifocal infiltrates. The patient was provided with supplemental IV fluid hydration and admitted to the hospital. Prior echocardiogram in 2019 demonstrated stage I diastolic dysfunction with an ejection fraction of 65%. [facility] Medical History Abnormal EKG Atrial septal defect Bladder cancer Chronic anticoagulation Hx of multiple sclerosis Hyperlipidemia Hypertension Kidney stones Multiple sclerosis Obstructive sleep apnea Paroxysmal atrial fibrillation Pulmonary embolism Recurrent UTI Syncope due to orthostatic hypotension Home Medications ocrelizumab 30 mg/mL intravenous solution (Ocrevus) 600 mg IV .COMPLEX multiple sclerosis 11/04/17 [History Last Taken 05/24/22] cholecalciferol (vitamin D3) 25 mcg (1,000 unit) tablet 5,000 unit PO DAILY supplement 05/28/18 [History Last Taken 07/01/22] multivitamin with folic acid 400 mcg tablet 1 tab PO DAILY supplement 05/28/18 [History Last Taken 07/01/22] pantoprazole 40 mg tablet,delayed release 40 mg PO DAILY reflux 12/01/19 [History Last Taken 07/02/22] potassium citrate 15 mEq (1,620 mg) tablet,extended release 15 meq PO BID ##60 02/04/20 [Rx Last Taken 07/02/22] albuterol sulfate 2.5 mg/3 mL (0.083 %) solution for nebulization 2.5 mg (3 mL) inhalation Q4H PRN shortness of breath or wheezing #180 vials 01/17/21 [Rx Last Taken Unknown] duloxetine 60 mg capsule,delayed release 60 mg PO QHS nerve 07/02/22 [History Last Taken 07/01/22] meclizine 25 mg tablet 25 mg PO DAILY PRN Dizziness 08/09/22 [History Last Taken 07/02/22] tamsulosin 0.4 mg capsule 0.4 mg PO QHS 07/02/22 [History Last Taken 07/01/22] tizanidine 4 mg tablet 4 mg PO Q8H PRN muscles 07/02/22 [History Last Taken 2 Weeks Ago ~06/18/22] carvedilol 12.5 mg tablet (Coreg) 12.5 mg PO BID #180 tabs 11/08/22 [Rx Last T aken Unknown] apixaban 5 mg tablet 5 mg PO BID blood thinner #180 tabs 05/15/23 [Rx Last Taken Unknown] simvastatin 20 mg tablet 20 mg PO QHS 07/02/23 [History Last Taken Unknown] furosemide 40 mg tablet (Lasix) 40 mg PO DAILY #90 tabs 07/03/23 [Rx Last Taken Unknown] lisdexamfetamine 50 mg capsule 50 mg PO DAILY MS 07/03/23 [History Last Taken Unknown] sodium bicarbonate 650 mg tablet 650 mg PO BID 07/03/23 [History Last Taken Unknown] cephalexin 500 mg capsule 500 mg PO TID 14 days #42 caps 07/31/23 [Rx Last Taken Unknown] lisinopril 20 mg tablet 20 mg PO DAILY 08/11/23 [History Last Taken Unknown] Allergy/AdvReac Type Severity Reaction Status Date / Time No Known Allergies Allergy Verified 08/11/23 20:52 Family History Father CAD (coronary artery disease) Hypertension Myocardial infarction Mother Hypertension Sister Multiple sclerosis Surgical History History of bladder surgery History of lithotripsy History of vasectomy S/P ureteral stent placement Social History household members: spouse and family Smoking Status: Never smoker alcohol intake: never substance use type: does not use caffeine: Yes (very little) ROS ROS Narrative 10 systems were reviewed with pertinent positives as noted in the HPI above. Physical Exam Const alert and no apparent distress General Appearance: cooperative HEENT normocephalic, head/scalp atraumatic and moist oral mucous membranes Eyes PERRL and EOMs intact bilaterally Neck supple General: trachea midline Chest inspection of chest normal Resp normal respiratory effort Auscultation: rales; Negative for rhonchi or wheezes Cardio regular rate and regular rhythm GI normal to inspection, nondistended, normoactive bowel sounds Extremity no clubbing, cyanosis or edema Skin no rashes or lesions noted Neuro oriented x3 Neuro Narrative: Baseline neurologic deficits secondary to MS Psych cooperative and affect normal Lab / Micro Data 08/12/23 05:24 08/12/23 05:24 Labs: Laboratory Results - last 24 hr 08/11/23 21:10: Lactic Acid 1.0 08/11/23 21:20: WBC 6.3, RBC 5.04, Hgb 13.6, Hct 44.6, MCV 88.5, MCH 27.0, MCHC 30.5 L, RDW Std Deviation 49.8 H, RDW Coeff of Bravo 15.3 H, Plt Count 121 L, MPV 9.2, Immature Gran % (Auto) 0.600, Neut % (Auto) 61.2, Lymph % (Auto) 22.5, [place] % (Auto) 12.5 H, Eos % (Auto) 2.9, Baso % (Auto) 0.3, Absolute Neuts (auto) 3.9, Absolute Lymphs (auto) 1.42, Nucleated RBC % 0, Sodium 142, Potassium 3.8, Chloride 107, Carbon Dioxide 30.0, Anion Gap 5, BUN 24 H, Creatinine 1.49 H, Estim Creat Clear Calc 63.05, Est GFR (MDRD) Af Amer 61, Est GFR (MDRD) Non-Af 50 L, BUN/Creatinine Ratio 16.1, Glucose 102, Calcium 8.1 L, Total Bilirubin 0.40, AST 20, ALT 23, Alkaline Phosphatase 83, Total Protein 6.0 L, Albumin 2.3 L, Globulin 3.7, Albumin/Globulin Ratio 0.6 L 08/11/23 22:00: Urine Color Yellow, Urine Clarity Sl. Cloudy, Urine pH 7.0, Ur Specific [place] 1.010, Urine Protein 100 H, Urine Glucose (UA) Normal, Urine Ketones Negative, Urine Occult Blood 10 H, Urine Nitrite Negative, Urine Bi lirubin Negative, Urine Urobilinogen 1 H, Ur Leukocyte Esterase 500 H, Urine RBC 0-5 SEEN, Urine WBC 25-50 SEEN, Ur Squamous Epith Cells 0-5 SEEN, Amorphous Sediment 1+ PHOS, Urine Bacteria 0 SEEN, Urine Mucus 0 SEEN 08/12/23 05:24: WBC 4.5, RBC 4.70, Hgb 12.7 L, Hct 41.6, MCV 88.5, MCH 27.0, MC HC 30.5 L, RDW Std Deviation 50.1 H, RDW Coeff of Bravo 15.2 H, Plt Count 119 L, MPV 9.8, Immature Gran % (Auto) 0.700, Neut % (Auto) 53.1, Lymph % (Auto) 30.1, [place] % (Auto) 12.6 H, Eos % (Auto) 3.1, Baso % (Auto) 0.4, Absolute Neuts (auto) 2.4, Absolute Lymphs (auto) 1.36, Nucleated RBC % 0, Sodium 141, Potassium 3.4 L , Chloride 110 H, Carbon Dioxide 27.0, Anion Gap 4 L, BUN 24 H, Creatinine 1.30, Estim Creat Clear Calc 72.26, Est GFR (MDRD) Af Amer 71, Est GFR (MDRD) Non-Af 59 L, BUN/Creatinine Ratio 18.5, Glucose 80, Calcium 7.5 L, B-Natriuretic Pepti de 33.1, Procalcitonin 0.06 Micro: Microbiology 08/11/23 22:00 Urine, Random Legionella Antigen - Final 08/11/23 22:00 Urine, Random Streptococcus pneumoniae Antigen (M - Final Rhythm Strip Rhythm Strip: Sinus Rhythm Rate: 78 Ectopy: None Radiology Impression Chest X-Ray 08/11/23 21:33 IMPRESSION: Interval worsening of now multifocal pneumonia. No other change from prior. Electronically Signed: Jovan Haskins MD at 23:00 EDT , Charges/Coding Visit Charges Inpatient E&M: 04926 Init Hosp L3
[2023-08-12] MEDS: Menthol/Lanolin/Calamine/Znox 113 GM Tube 1 APPLIC TOPICAL ×2 (09:57→22:01)
[2023-08-12] MEDS: APIXABAN 5 MG TABLET PO ×2 (09:59→22:01)
[2023-08-12] MEDS: predniSONE 20 MG Tablet 40 MG PO (09:59)
[2023-08-12] MEDS: levoFLOXacin IV 500 MG/100 ML BAG 100 MG IV (10:58)
--- NOTE | 2023-08-12 13:45 | CASEMGMT ---
RN CM chart review: Patient was admitted 07/29-07/31/23 for UTI, hypotension, covid 19. See RN CM assessment from 07/29/23. Patient did not qualify for home oxygen at discharge and was discharged home with follow-up plans in place and family support. Robin returned to [facility] ED on 08/11/23 for weakness. Patient was admitted for hypotension and LUPE. RN CM in to discuss readmission and needs at discharge. Patient was to see PCP on 08/11 but was rescheduled due to working. Patient states he was taking his medications as prescribed. Patient states he is interested in C and prefers [facility], denies list for C. Patient denied further needs. Referrral sent to [facility] and awaiting acceptance. CM will continue to follow this patient and plan for safe discharge.
--- NOTE | 2023-08-12 16:19 | CHAPLAIN ---
Type of Pastoral Visit _x__ Initial Visit ___ Follow-up Visit ___ On-call Visit ___ General Patient Visit ___ Spiritual Assessment ___ Family Conference ___ Bereavement ___ Rapid Response ___ Code Blue ___ Other (describe below) Pastoral Care Referral From _x__ Patient ___ Family ___ Nurse ___ Physician ___ Chinchilla Farmer ___ Nursing Program Manager ___ Other (describe below) Sacrament/Intervention _x__ Active listening ___ Anointing ___ Mormon ___ Bereavement ___ Communion ___ Terri exploration ___ _x__ Life review _x__ Prayer ___ Reconciliation ___ Sacrament of Sick _x__ Supportive presence ___ Wedding ___ Other (describe below) Pastoral Comments
--- NOTE | 2023-08-12 18:38 | PN.HOSP_ITS ---
Reason for Visit Reason for Visit: Diagnoses Multiple sclerosis (08/11/23) Hypotension, unspecified (08/11/23) Acute kidney failure, unspecified (08/11/23) Urinary tract infection, site not specified (08/11/23) Subjective Subjective Patient was seen and examined today, I had pulmonary medicine see the patient due to his oxygen requirement earlier today, they recommended keeping the patient on an antibiotic for the present time and continuing his present treatment. Patient is currently on 2 L via nasal cannula at this time. I also talked briefly with Dr. Bernardo who the patient was supposed to have an appointment with today to discuss treatment of his left kidney stone, Dr. Bernardo states that the patient can follow-up with him as an outpatient and will probably need intervention to remove the stone in the near future. I relayed this to the patient and he understands. Patient's creatinine today was 1.3, potassium was slightly low at 3.4. Patient's blood pressure this afternoon was 138/88. Objective Data Objective Data Vital Signs: Vital Signs Temp Pulse Resp BP Pulse Ox O2 Del Method O2 Flow Rate 98.8 F 80 16 138/88 H 92 Nasal Cannula 2 08/12/23 14:25 08/12/23 14:25 08/12/23 14:25 08/12/23 14:25 08/12/23 14:25 08/12/23 14:25 08/12/23 14:25 Oxygen Flow Rate (L/min) 2 Oxygen Delivery Method Nasal Cannula Weight: 138.8 kg Body Mass Index (BMI) 35.3 Intake & Output: Intake and Output for Last 24 Hours 08/10/23 08/11/23 08/12/23 23:59 23:59 23:59 Intake Total 2099 2407.5 / 2407.5 Output Total 300 / 300 Balance 2099 2107.5 / 2107.5 Lab / Micro Data 08/12/23 05:24 08/12/23 05:24 Labs: Laboratory Results - last 24 hr 08/11/23 21:10: Lactic Acid 1.0 08/11/23 21:20: WBC 6.3, RBC 5.04, Hgb 13.6, Hct 44.6, MCV 88.5, MCH 27.0, MCHC 30.5 L, RDW Std Deviation 49.8 H, RDW Coeff of Bravo 15.3 H, Plt Count 121 L, MPV 9.2, Immature Gran % (Auto) 0.600, Neut % (Auto) 61.2, Lymph % (Auto) 22.5, Catron % (Auto) 12.5 H, Eos % (Auto) 2.9, Baso % (Auto) 0.3, Absolute Neuts (auto) 3.9, Absolute Lymphs (auto) 1.42, Nucleated RBC % 0, Sodium 142, Potassium 3.8, Chloride 107, Carbon Dioxide 30.0, Anion Gap 5, BUN 24 H, Creatinine 1.49 H, Estim Creat Clear Calc 63.05, Est GFR (MDRD) Af Amer 61, Est GFR (MDRD) Non-Af 5 0 L, BUN/Creatinine Ratio 16.1, Glucose 102, Calcium 8.1 L, Total Bilirubin 0.40, AST 20, ALT 23, Alkaline Phosphatase 83, Total Protein 6.0 L, Albumin 2.3 L, Globulin 3.7, Albumin/Globulin Ratio 0.6 L 08/11/23 22:00: Urine Color Yellow, Urine Clarity Sl. Cloudy, Urine pH 7.0, Ur Specific Linden 1.010, Urine Protein 100 H, Urine Glucose (UA) Normal, Urine Ketones Negative, Urine Occult Blood 10 H, Urine Nitrite Negative, Urine Bilirubin Negative, Urine Urobilinogen 1 H, Ur Leukocyte Esterase 500 H, Urine RBC 0-5 SEEN, Urine WBC 25-50 SEEN, Ur Squamous Epith Cells 0-5 SEEN, Amorphous Sediment 1+ PHOS, Urine Bacteria 0 SEEN, Urine Mucus 0 SEEN 08/12/23 05:24: WBC 4.5, RBC 4.70, Hgb 12.7 L, Hct 41.6, MCV 88.5, MCH 27.0, MCHC 30.5 L, RDW Std Deviation 50.1 H, RDW Coeff of Bravo 15.2 H, Plt Count 119 L, MPV 9.8, Immature Gran % (Auto) 0.700, Neut % (Auto) 53.1, Lymph % (Auto) 30.1, Catron % (Auto) 12.6 H, Eos % (Auto) 3.1, Baso % (Auto) 0.4, Absolute Neuts (auto) 2.4, Absolute Lymphs (auto) 1.36, Nucleated RBC % 0, Sodium 141, Potassium 3.4 L , Chloride 110 H, Carbon Dioxide 27.0, Anion Gap 4 L, BUN 24 H, Creatinine 1.30, Estim Creat Clear Calc 72.26, Est GFR (MDRD) Af Amer 71, Est GFR (MDRD) Non-Af 59 L, BUN/Creatinine Ratio 18.5, Glucose 80, Calcium 7.5 L, B-Natriuretic Peptide 33.1, Procalcitonin 0.06 Micro: Microbiology 08/11/23 22:00 Urine, Random Legionella Antigen - Final 08/11/23 22:00 Urine, Random Streptococcus pneumoniae Antigen (M - Final Radiography Diagnostic Testing: Radiology Impression Chest X-Ray 08/11/23 21:33 IMPRESSION: Interval worsening of now multifocal pneumonia. No other change from prior. Electronically Signed: Jovan Haskins MD at 23:00 EDT , Rhythm Strip Rhythm Strip: Sinus Rhythm Rate: 78 Ectopy: None Physical Exam Const alert, oriented x3 and no apparent distress Constitutional Narrative: Patient appears older than his stated age General Appearance: cooperative, well kempt and well developed Orientation / Consciousness: awake, oriented to person, oriented to place and oriented to time HEENT normocephalic and moist oral mucous membranes Eyes PERRL, EOMs intact bilaterally and conjunctivae normal Neck supple, no JVD, thyroid normal and no carotid bruits General: trachea midline Resp normal respiratory effort, no retractions, no use of accessory muscles and clear to auscultation bilaterally Auscultation: Negative for rales, rhonchi or wheezes Cardio regular rate, regular rhythm, S1 normal heart sound, S2 normal heart sound, no murmurs, no rub and no gallops GI normal to inspection, nondistended, normoactive bowel sounds, soft to palpation, non-tender and non-distended Extremity Extremity Narrative: Patient has very little movement in his left arm and left leg Skin no rashes or lesions noted General Skin Exam: no breakdown Neuro oriented x3 and CN's II-XII intact bilaterally Neuro Narrative: Patient had little movement in his left arm and left leg Sensorium / Orientation: awake and alert Speech: speech normal Psych affect normal Assessment & Plan Assessment/Plan (1) LUPE (acute kidney injury): PLAN: Plan 1. Acute kidney injury-patient's creatinine is normalized with administration of fluids, labs will be rechecked tomorrow #2 hypoxia-secondary to possible pneumonia with atelectasis-pulmonary medicine participating in his care, patient will remain on antibiotics for now, prednisone, and pulse ox will be monitored. #3 obstructive sleep apnea-patient is on BiPAP on an outpatient basis and will continue to use BiPAP in the hospital when sleeping #4 MS with debility-complicates care, medical course, recovery, and prognosis Total clinical time spent by myself addressing the patient's medical issues, reviewing all of his data, and collaborating with patient's care team: 35 minutes Charges/Coding Visit Charges Inpatient E&M: 99732 Subs Hosp L2
--- NOTE | 2023-08-12 23:19 | CPS ---
Pt set up on sleep lab machine for the night on home settings.
[2023-08-13 01:00] VITALS: BP 127/79; PULSE 66; RESP 18; TEMP 36.7; O2SAT 93
[2023-08-13 03:50] VITALS: BP 127/79; PULSE 66; RESP 18; TEMP 36.7; O2SAT 93
[2023-08-13 07:24] LABS: Anion Gap 2 (5-15); BUN 17 mg/dL (7-18); Calcium,Total 8.3 mg/dL (8.5-10.1); Chloride 115 mmol/L (98-107); EST Glomerular Filtration Rate 80 mL/min (>60); Est Glom Filt Rate - Afr Amer 96 mL/min (>60); Estimated Creatinine Clearance 93.94 ml/min; Glucose 154 mg/dL (74-106); Potassium 4.2 mmol/L (3.5-5.1); Sodium Level 143 mmol/L (136-145)
[2023-08-13 07:58] VITALS: O2SAT 91
[2023-08-13 08:03] VITALS: O2SAT 91; O2SAT 94
[2023-08-13] MEDS: APIXABAN 5 MG TABLET PO (08:48)
[2023-08-13] MEDS: predniSONE 20 MG Tablet 40 MG PO (08:48)
[2023-08-13] MEDS: Menthol/Lanolin/Calamine/Znox 113 GM Tube 1 APPLIC TOPICAL (09:37)
[2023-08-13] MEDS: levoFLOXacin IV 500 MG/100 ML BAG 100 MG IV (09:39)
[2023-08-13 09:41] VITALS: BP 138/81; PULSE 69; RESP 16; TEMP 37.1; O2SAT 94
[2023-08-13 09:42] VITALS: BP 138/81; PULSE 69; RESP 16; TEMP 37.1; O2SAT 94
--- NOTE | 2023-08-13 11:46 | PCM.DC ---
Discharge Instructions Diet Discharge Diet: No restrictions Activity Discharge Activity: Return to Normal Activity Weight Bearing Status: - (Resume previous activity level) Follow Up Care Test Results: Test results from this visit will be discussed in further detail at your follow-up appointment, if applicable. Discharge Plan Admission Admit Date/Time: 08/11/23 23:07 Primary Reason for Your Visit: Hypoxia, acute kidney injury Attending Provider: Jeancarlos Downey Primary Care Provider: Robert John Consulting Providers: Hamilton Alford; Otoniel Ni; Julio C Liz; Estephania Sosa; Zoran Segundo; Alex Meng; Sita Cyr MEDICAL PHYSICIST Instructions Additional Instructions / Restrictions: Monitor your blood pressure at home, if systolic blood pressure under 100, recommend reducing lisinopril to 10 mg daily Discharge Orders/Prescriptions Prescriptions: Continued ocrelizumab [Ocrevus] 30 mg/mL solution 600 mg IV .COMPLEX Patient Comments: every 6 months Rx Instructions: every 6 months simvastatin 20 mg tablet 20 mg PO QHS sodium bicarbonate 650 mg tablet 650 mg PO BID Patient Comments: TAKE 1 TABLET BY MOUTH TWICE A DAY cholecalciferol (vitamin D3) 1,000 UNIT tablet 5,000 unit PO DAILY Patient Comments: vitamin multivitamin with folic acid 1 TABLET tablet 1 tab PO DAILY Patient Comments: vitamin pantoprazole 40 MG tablet 40 mg PO DAILY lisdexamfetamine 50 mg capsule 50 mg PO DAILY Patient Comments: add potassium citrate 15 MEQ tablet extended release 15 meq PO BID Qty: 60 5RF tizanidine 4 mg tablet 4 mg PO Q8H PRN (Reason: muscles) Patient Comments: TAKE ONE TABLET BY MOUTH EVERY 8 HOURS NEEDED FOR MUSCLE SPASMS meclizine 25 mg tablet 25 mg PO DAILY PRN (Reason: Dizziness) Patient Comments: TAKE 1 TABLET BY MOUTH TWICE A DAY NEEDED duloxetine 60 mg capsule,delayed release(DR/EC) 60 mg PO QHS Patient Comments: TAKE 1 CAPSULE BY MOUTH EVERY DAY tamsulosin 0.4 mg capsule 0.4 mg PO QHS lisinopril 20 mg tablet 20 mg PO DAILY Patient Comments: TAKE 1 TABLET BY MOUTH EVERY DAY albuterol sulfate 2.5 mg /3 mL (0.083 %) solution for nebulization 2.5 mg INHALATION Q4H PRN (Reason: shortness of breath or wheezing) Qty: 180 6RF carvedilol [Coreg] 12.5 mg tablet 12.5 mg PO BID Qty: 180 3RF Rx Instructions: must administer with a meal/food apixaban 5 mg tablet 5 mg PO BID Qty: 180 6RF Discontinued furosemide [Lasix] 40 mg tablet 40 mg PO DAILY Qty: 90 1RF cephalexin 500 mg capsule 500 mg PO TID 14 Days Qty: 42 0RF Referrals / Follow Up: Wilmer Bernardo MD [Med Staff - Active Staff] - See Referral Note (Contact his office for follow-up appointment regarding kidney stones) Robert John MD [Primary Care Provider] - Within 1 Week Disposition Disposition (needs filled in before D/C Order can be placed): Home, Self Care
--- NOTE | 2023-08-13 11:55 | DS.PCM_ITS ---
Providers Date of Admission: 08/11/23 Date of Discharge: 08/13/23 Primary Care Physician: Dr. Robert John MD Consultations 08/12/23 07:26 Consult: Delinquency Counselor / Pulmonary Medicine Routine Consulting Provider: Pulmonary Medicine fiorella Hilton Reason for Consult: hypoxia, pneumonia EMERGENT Consult: No MD Notified: Yes Date Notified: 08/12/23 Time Notified: 08:07 Method of Notification: Text Reason For Visit: HYPOTENSION SECONDARY TO UTI Diagnosis Discharge Diagnosis (1) LUPE (acute kidney injury): Status: Acute Code(s): N17.9 - Acute kidney failure, unspecified Plan 1. Acute kidney injury-patient's creatinine is normalized with administration o f fluids, labs will be rechecked tomorrow #2 hypoxia-secondary to atelectasis #3 obstructive sleep apnea-patient is on BiPAP on an outpatient basis and will continue to use BiPAP in the hospital when sleeping #4 MS with debility-complicates care, medical course, recovery, and prognosis #5 hypotension secondary to #1 Patient was not felt to have had pneumonia Total clinical time spent by myself addressing the patient's medical issues, reviewing all of his data, and collaborating with patient's care team: 35 minutes Medications at Discharge Home Medications ocrelizumab 30 mg/mL intravenous solution (Ocrevus) 600 mg IV .COMPLEX multiple sclerosis 11/04/17 cholecalciferol (vitamin D3) 25 mcg (1,000 unit) tablet 5,000 unit PO DAILY supplement 05/28/18 multivitamin with folic acid 400 mcg tablet 1 tab PO DAILY supplement 05/28/18 pantoprazole 40 mg tablet,delayed release 40 mg PO DAILY reflux 12/01/19 potassium citrate 15 mEq (1,620 mg) tablet,extended release 15 meq PO BID ##60 02/04/20 albuterol sulfate 2.5 mg/3 mL (0.083 %) solution for nebulization 2.5 mg (3 mL) inhalation Q4H PRN shortness of breath or wheezing #180 vials 01/17/21 duloxetine 60 mg capsule,delayed release 60 mg PO QHS nerve 07/02/22 meclizine 25 mg tablet 25 mg PO DAILY PRN Dizziness 07/02/22 tamsulosin 0.4 mg capsule 0.4 mg PO QHS 07/02/22 tizanidine 4 mg tablet 4 mg PO Q8H PRN muscles 07/02/22 carvedilol 12.5 mg tablet (Coreg) 12.5 mg PO BID #180 tabs 11/08/22 apixaban 5 mg tablet 5 mg PO BID blood thinner #180 tabs 05/15/23 simvastatin 20 mg tablet 20 mg PO QHS 07/02/23 lisdexamfetamine 50 mg capsule 50 mg PO DAILY MS 07/03/23 sodium bicarbonate 650 mg tablet 650 mg PO BID 07/03/23 lisinopril 20 mg tablet 20 mg PO DAILY 08/11/23 Hospital Course Operations None Procedures None Summary of Care Provided Minutes Spent on Discharge: 31 Hospital Course: This 68-year-old white male seen in the emergency room with complaints of generalized weakness, patient checked his blood pressure at home and found it to be 72/40, he noticed his heart rate was also low. He had been recently discharged from the hospital for treatment of a complicated urinary tract in fection and pulmonary emboli. Patient stated that he felt his oral intake was not good since he was discharged from the hospital. Patient appeared to be clinically dehydrated in the emergency room, he received a liter of fluid while in route to the hospital by EMS. Upon arrival his blood pressure was 116/63. His blood pressure however dipped in the emergency room and he was given more fluid. Lab showed a normal white blood cell count, creatinine was elevated at 1.49. Chest x-ray showed worsening multifocal infiltrate, patient required 2 L of oxygen to maintain his pulse ox above 90%. Urinalysis was concerning for possible urinary tract infection, patient was admitted to PCU and given IV fluids and antibiotics were continued for a short period of time. Patient was seen in consultation by pulmonary medicine, I was felt the patient probably had atelectasis which was causing his hypoxia. Patient improved during his hospital stay, his blood pressure medicines were held during his hospitalization and he was given IV fluids. On 08/13/2023, patient was seen and examined:alert, oriented x3 and no apparent distress Constitutional Narrative: Patient appears older than his stated age General Appearance: cooperative, well kempt and well developed Orientation / Consciousness: awake, oriented to person, oriented to place and oriented to time HEENT normocephalic and moist oral mucous membranes Eyes PERRL, EOMs intact bilaterally and conjunctivae normal Neck supple, no JVD, thyroid normal and no carotid bruits General: trachea midline Resp normal respiratory effort, no retractions, no use of accessory muscles and clear to auscultation bilaterally Auscultation: Negative for rales, rhonchi or wheezes Cardio regular rate, regular rhythm, S1 normal heart sound, S2 normal heart sound, no murmurs, no rub and no gallops GI normal to inspection, nondistended, normoactive bowel sounds, soft to palpation, non-tender and non-distended Extremity Extremity Narrative: Patient has very little movement in his left arm and left leg Skin no rashes or lesions noted General Skin Exam: no breakdown Neuro oriented x3 and CN's II-XII intact bilaterally Neuro Narrative: Patient had little movement in his left arm and left leg Sensorium / Orientation: awake and alert Speech: speech normal Psych affect normal Patient was discharged in stable condition on 08/13/23, he did not require oxygen at the time of discharge Weight / BMI Weight Weight: 138.8 kg Body Mass Index (BMI) 35.3 ABG / Lab / Microbiology Data 08/12/23 05:24 08/13/23 04:59 Laboratory: Laboratory Results - last 24 hr 08/13/23 04:59: Sodium 143, Potassium 4.2, Chloride 115 H, Carbon Dioxide 26.0, Anion Gap 2 L, BUN 17, Creatinine 1.00, Estim Creat Clear Calc 93.94, Est GFR (MDRD) Af Amer 96, Est GFR (MDRD) Non-Af 80, BUN/Creatinine Ratio 17.0, Glucose 154 H, Calcium 8.3 L Microbiology: Microbiology 08/11/23 22:00 Urine, Clean Catch Urine Culture - Final Culture exhibits no growth. 08/11/23 22:00 Urine, Random Legionella Antigen - Final 08/11/23 22:00 Urine, Random Streptococcus pneumoniae Antigen (M - Final D/C Instructions Discharge Diet: No restrictions Weight Bearing Status: - (Resume previous activity level) Meaningful Use Info Meaningful Use Diagnoses (Choose all that apply): None applicable Discharge Plan Admission Admit Date/Time: 08/11/23 23:07 Primary Reason for Your Visit: Hypoxia, acute kidney injury Attending Provider: Jeancarlos Downey Primary Care Provider: Robert John Consulting Providers: Hamilton Alford; Otoniel Ni; Julio C Liz; Estephania Sosa; Zoran Segundo; Alex Meng; Sita Cyr MAINTENANCE MECHANIC HELPER Instructions Additional Instructions / Restrictions: Monitor your blood pressure at home, if systolic blood pressure under 100, recommend reducing lisinopril to 10 mg daily Discharge Orders/Prescriptions Prescriptions: Continued ocrelizumab [Ocrevus] 30 mg/mL solution 600 mg IV .COMPLEX Patient Comments: every 6 months Rx Instructions: every 6 months simvastatin 20 mg tablet 20 mg PO QHS sodium bicarbonate 650 mg tablet 650 mg PO BID Patient Comments: TAKE 1 TABLET BY MOUTH TWICE A DAY cholecalciferol (vitamin D3) 1,000 UNIT tablet 5,000 unit PO DAILY Patient Comments: vitamin multivitamin with folic acid 1 TABLET tablet 1 tab PO DAILY Patient Comments: vitamin pantoprazole 40 MG tablet 40 mg PO DAILY lisdexamfetamine 50 mg capsule 50 mg PO DAILY Patient Comments: add potassium citrate 15 MEQ tablet extended release 15 meq PO BID Qty: 60 5RF tizanidine 4 mg tablet 4 mg PO Q8H PRN (Reason: muscles) Patient Comments: TAKE ONE TABLET BY MOUTH EVERY 8 HOURS NEEDED FOR MUSCLE SPASMS meclizine 25 mg tablet 25 mg PO DAILY PRN (Reason: Dizziness) Patient Comments: TAKE 1 TABLET BY MOUTH TWICE A DAY NEEDED duloxetine 60 mg capsule,delayed release(DR/EC) 60 mg PO QHS Patient Comments: TAKE 1 CAPSULE BY MOUTH EVERY DAY tamsulosin 0.4 mg capsule 0.4 mg PO QHS lisinopril 20 mg tablet 20 mg PO DAILY Patient Comments: TAKE 1 TABLET BY MOUTH EVERY DAY albuterol sulfate 2.5 mg /3 mL (0.083 %) solution for nebulization 2.5 mg INHALATION Q4H PRN (Reason: shortness of breath or wheezing) Qty: 180 6RF carvedilol [Coreg] 12.5 mg tablet 12.5 mg PO BID Qty: 180 3RF Rx Instructions: must administer with a meal/food apixaban 5 mg tablet 5 mg PO BID Qty: 180 6RF Discontinued furosemide [Lasix] 40 mg tablet 40 mg PO DAILY Qty: 90 1RF cephalexin 500 mg capsule 500 mg PO TID 14 Days Qty: 42 0RF Referrals / Follow Up: Wilmer Bernardo MD [Med Staff - Active Staff] - See Referral Note (Contact his office for follow-up appointment regarding kidney stones) Robert John MD [Primary Care Provider] - Within 1 Week Disposition Disposition (needs filled in before D/C Order can be placed): Home, Self Care Charges/Coding Visit Charges Inpatient E&M: 66078 Disch Hosp >30min
--- NOTE | 2023-08-13 12:55 | CASEMGMT ---
RN CM received call back from [facility] and they are able to accept patient with planned start of care for 08/15/23. Patient does not qualify for home oxygen. RN CM in to update patient regarding C acceptance. Patient and voiced understanding and denied further questions or concerns.
== END 2023-08-13 16:10 | disposition home or self-care (01) | DRG 683 ==
LOC: ED 23:35 → PCU 08-12 00:28
PROVIDERS: Internal Medicine Critical Care Medicine; Admitting Provider Family Medicine; Emergency Provider Emergency Medicine; PCP Internal Medicine; Referring Provider Family Medicine; Visit Provider Internal Medicine
DX: N17.9 Acute kidney failure, unspecified (principal); J98.11 Atelectasis; E78.5 Hyperlipidemia, unspecified; G35 Multiple sclerosis; I10 Essential (primary) hypertension; K21.9 Gastro-esophageal reflux disease without esophagitis; G47.33 Obstructive sleep apnea (adult) (pediatric); Z85.51 Personal history of malignant neoplasm of bladder; Z86.711 Personal history of pulmonary embolism; Z87.440 Personal history of urinary (tract) infections
CPT/HCPCS: 36415; 71045; 80048; 80053; 81001; 83605; 83880; 84145; 85025; 87040; 87086; 87449; 93005; 94002; 94640; 94668; 94762; 97802; 99285; J7030; J7040; A4216

== ENCOUNTER 2023-08-18 10:06 | Inpatient (IN) | payer MEDICARE, SELFPAY ==
[2023-08-18] VITALS (14 sets, daily range): BP systolic 126–149; BP diastolic 73–99; PULSE 82–98; RESP 12–25; TEMP 37.4–37.9; O2SAT 83–97; BMI 35.7; BMI 34.7
--- NOTE | 2023-08-18 11:01 | EDS_ITS ---
HPI History of Present Illness Chief Complaint: General Illness Informant: patient and spouse/S.O. Narrative Narrative: Patient comes in with difficulty maintaining saturations at home that is getting worse. states the patient was admitted here earlier this month on the fourth for UTI weakness. He was started on antibiotics which he finished cephalexin. No had COVID. He came back in again and was just discharged this past . He evidently was screened for hypoxia but did not meet any criteria. But the has been having trouble maintaining saturations at home. They can check his oxygen level. He goes down to as low as 83% on occasion. She will get him some as needed breathing treatments. She also evidently has a small amount of oxygen at home that she will use briefly to help get his levels up. He does feel dizzy that is worse when his oxygen level is low. He coughs but not bringing up any sputum. No mopped assist. He is on apixaban. Although he has slight temperature here nuns known at home. states he also had his Lasix stopped the but he has had referral which would be normal with stopping Lasix. She started back on hydrochlorothiazide which she had at home. [facility] Medical History Abnormal EKG Atrial septal defect Bladder cancer Chronic anticoagulation Hx of multiple sclerosis Hyperlipidemia Hypertension Kidney stones Multiple sclerosis Obstructive sleep apnea Paroxysmal atrial fibrillation Pulmonary embolism Recurrent UTI Syncope due to orthostatic hypotension Home Medications ocrelizumab 30 mg/mL intravenous solution (Ocrevus) 600 mg IV .COMPLEX multiple sclerosis 11/04/17 [History Last Taken 05/31/23] cholecalciferol (vitamin D3) 25 mcg (1,000 unit) tablet 5,000 unit PO DAILY supplement 05/28/18 [History Last Taken 08/17/23] multivitamin with folic acid 400 mcg tablet 1 tab PO DAILY supplement 05/28/18 [ History Last Taken 08/17/23] pantoprazole 40 mg tablet,delayed release 40 mg PO DAILY reflux 12/01/19 [History Last Taken 08/18/23] potassium citrate 15 mEq (1,620 mg) tablet,extended release 15 meq PO BID ##60 02/04/20 [Rx Last Taken 08/18/23] albuterol sulfate 2.5 mg/3 mL (0.083 %) solution for nebulization 2.5 mg (3 mL) inhalation Q4H PRN shortness of breath or wheezing #180 vials 01/17/21 [Rx Last Taken 08/18/23] duloxetine 60 mg capsule,delayed release 60 mg PO QHS nerve 07/02/22 [History Last Taken 08/17/23] meclizine 25 mg tablet 25 mg PO DAILY PRN Dizziness 07/02/22 [History Last Taken 08/17/23] tamsulosin 0.4 mg capsule 0.4 mg PO QHS 07/02/22 [History Last Taken 08/17/23] carvedilol 12.5 mg tablet (Coreg) 12.5 mg PO BID #180 tabs 11/08/22 [Rx Last Taken 08/18/23] apixaban 5 mg tablet 5 mg PO BID blood thinner #180 tabs 05/15/23 [Rx Last Taken 08/18/23] simvastatin 20 mg tablet 20 mg PO QHS 07/02/23 [History Last Taken 08/17/23] lisdexamfetamine 50 mg capsule 50 mg PO DAILY MS 07/03/23 [History Last Taken 08/18/23] sodium bicarbonate 650 mg tablet 650 mg PO BID 07/03/23 [History Last Taken 08/18/23] lisinopril 20 mg tablet 20 mg PO DAILY 08/11/23 [History Last Taken 08/18/23] hydrochlorothiazide 12.5 mg capsule 12.5 mg PO Q12H 08/18/23 [History Last Taken 08/18/23] vitamin E 200 unit capsule 400 unit PO DAILY 08/18/23 [History Last Taken 08/17/23] Allergy/AdvReac Type Severity Reaction Status Date / Time No Known Allergies Allergy Verified 08/11/23 20:52 Family History Father CAD (coronary artery disease) Hypertension Myocardial infarction Mother Hypertension Sister Multiple sclerosis Surgical History History of bladder surgery History of lithotripsy History of vasectomy S/P ureteral stent placement Social History household members: spouse and family Smoking Status: Never smoker alcohol intake: never substance use type: does not use caffeine: Yes (very little) ROS ROS ED Constitutional Constitutional ED: Reports other Details: Pt has a low low-grade temperature elevation here but does not have a known history of fevers at home. ; Denies chills, fever(s) or subjective Eyes Eyes: Denies blurry vision Cardiovascular Cardiovascular: Denies chest pain or palpitations Respiratory/Chest Respiratory/Chest: Reports cough; Denies sputum Gastrointestinal Gastrointestinal: Denies abdominal pain, nausea or vomiting Genitourinary Genitourinary ED: Denies dysuria Musculoskeletal Musculoskeletal: Denies myalgias Integumentary Denies rash Neurologic Neurologic: Denies headache(s) Hematologic/Lymphatic Hematologic/Lymphatic: Reports easy bleeding, easy bruising and other Details: Is on and taking his Eliquis. Allergic/Immunologic Allergic/Immunologic ED: Denies urticaria EXAM Physical Exam Narrative Exam Narrative: CONSTITUTIONAL: Patient is nontoxic in appearance. The patient looks comfortable. Work of breathing looks normal is now on 5 L of oxygen. HEENT: No notable trauma. Mucous membranes moist. No sinus tenderness. EYES: No conjunctival injection. No proptosis. NECK:No JVD. No stridor. CARDIOVASCULAR: Regular rate. Regular rhythm. No notable murmur. No JVD. RESPIRATORY: No respiratory distress. Breathing does not look labored at this time. He does have some mild coarse breath sounds and slight expiratory wheeze bilaterally. No pain with a deep breath. GASTROINTESTINAL: Abdomen does look obese but is not distended. Bowel sounds are normal. No tenderness. MUSCULOSKELETAL: Atraumatic. Bilateral +2 peripheral edema. Evidently the Lasix was stopped recently but patient's did add back his hydrochlorothiazide. NEUROLOGICAL: Patient is alert and appropriate. No acute focal deficit noted. Known weakness and sensory changes left side from his MS SKIN: No noted rashes. No diaphoresis. PSYCHIATRIC: Patient is calm. Mood is appropriate. Const Vital Signs: 08/18/23 10:09 08/18/23 10:15 08/18/23 10:15 Temperature 100.3 F H Temperature Source Oral Pulse Rate 92 Respiratory Rate 24 H Respiratory Effort Normal Respiratory Pattern Normal Blood Pressure 144/87 H Blood Pressure Mean 106 Pulse Ox 87 91 Oxygen Delivery Method Room Air Nasal Cannula Oxygen Flow Rate (L/min) 5 08/18/23 11:11 08/18/23 11:11 08/18/23 11:37 Temperature Temperature Source Pulse Rate 93 Respiratory Rate 25 H Respiratory Effort Respiratory Pattern Tachypnea Blood Pressure Blood Pressure Mean Pulse Ox 91 89 Oxygen Delivery Method Nasal Cannula Oxygen Flow Rate (L/min) 5 5 08/18/23 13:42 Temperature Temperature Source Pulse Rate 98 Respiratory Rate 25 H Respiratory Effort Respiratory Pattern Blood Pressure 149/99 H Blood Pressure Mean 115 Pulse Ox 90 Oxygen Delivery Method Nasal Cannula Oxygen Flow Rate (L/min) 5 MDM MDM MDM Narrative Medical decision making narrative: Patient CBC shows no marked abnormalities. Patient's electrolytes overall look good. No significant abnormalities. Patient's BNP is pending. We are having an issue with the machine and this is not yet able to be reported. My independent her potation of his single view chest x-ray shows atelectasis on the left with concern for infiltrates possibly even on both sides. Final reading shows new left lower lobe infiltrate and mild residual findings on the right. With the patient's slight elevation of the temperature, cough, worsening hypoxia and chest x-ray findings I did start Zosyn. There certainly is a component of atelectasis that may require more aggressive pulmonary toilet. There may be a component of fluid overload 2. But with his significant hypoxia he will need to come in the hospital as he does not have oxygen at home. I discussed case with hospitalist. She is also ordering CT to better define whether he has fluid, atelectasis and/or infiltrate. PE is not the primary concern as he is already anticoagulated. Lab Data Attestation: I reviewed the patient's lab results. Labs: Laboratory Results - last 24 hr 08/18/23 11:30 WBC 6.0 RBC 5.00 Hgb 13.3 Hct 43.1 MCV 86.2 MCH 26.6 L MCHC 30.9 L RDW Std Deviation 47.5 H RDW Coeff of Bravo 15.1 H Plt Count TNP MPV 10.2 Immature Gran % (Auto) 0.700 Neut % (Auto) 68.0 Lymph % (Auto) 17.4 L [place] % (Auto) 10.4 H Eos % (Auto) 3.2 Baso % (Auto) 0.3 Absolute Neuts (auto) 4.1 Absolute Lymphs (auto) 1.04 Nucleated RBC % 0 Platelet Estimate ADEQUATE Sodium 138 Potassium 4.1 Chloride 103 Carbon Dioxide 30.0 Anion Gap 5 BUN 16 Creatinine 1.24 Estim Creat Clear Calc 75.76 Est GFR (MDRD) Af Amer 75 Est GFR (MDRD) Non-Af 62 BUN/Creatinine Ratio 12.9 Glucose 91 Calcium 8.8 Radiography Diagnostic Testing: Clinical Impression(s) from Imaging Studies Chest X-Ray 08/18/23 11:50 IMPRESSION: New left lower lobe infiltrate. Mild residual increased markings are seen in the right upper lobe as compared to prior study. Electronically Signed: Bc Bishop MD at 12:38 EDT , EKG Initial EKG: Comments: My independent interpretation of the patient's EKG shows sinus rhythm with overall rate of 93. No ventricular ectopy. Diffuse nonspecific ST and T wave changes. [place] interval, QRS duration and QTc are normal. Discharge Plan Dx/Rx/DC Orders Clinical Impression: Bilateral pulmonary infiltrates, Hypoxia, Hx of multiple sclerosis, Atelectasis Disposition Disposition: Acute Care [facility]
[2023-08-18] MEDS: Ipratropium/Albuterol Sulfate 3 ML AMPUL.NEB INHALATION (11:06)
[2023-08-18 11:44] LABS: Absolute Lymphocyte Count 1.04 X10^3/uL (0.83-4.51); Absolute Neutrophil Count 4.1 X10^3/uL (2.0-7.7); Basophil# 0.02 X10^3/uL; Basophil% 0.3 % (0-1); Eosinophil# 0.19 X10^3/uL; Eosinophils% 3.2 % (0-5); Hematocrit 43.1 % (40-54); Hemoglobin 13.3 g/dL (13.0-16.5); Lymphocyte # 1.04 X10^3/ul (0.83-4.51); Lymphocyte % 17.4 % (19-41); Mean Corp Hgb Conc 30.9 g/dL (32-36); Mean Corpuscular Hgb 26.6 pg (27.0-32.0); Mean Corpuscular Volume 86.2 fL (80-94); Mean Platelet Vol. 10.2 fl (6.2-12.0); Monocyte# 0.62 X10^3/uL; Monocyte% 10.4 % (0-10); NRBC Flagged by Analyzer 0 % (0-5); Neutrophil # 4.05 X10^3/uL (2.7-7.7); POSITIVE COUNT YES; RBC Distribution Width CV 15.1 % (11.6-14.6); RBC Distribution Width SD 47.5 fl (35.1-43.9)
--- NOTE | 2023-08-18 11:50 | RAD_ITS ---
STUDY: X-RAY CHEST REASON FOR EXAM: Male, 68 years old. Cough, SOB TECHNIQUE: Single AP portable view of the chest. COMPARISON: Comparison is made with prior study dated August 11, 2023. FINDINGS: EKG electrodes are seen. Infiltration in the left lower lobe. Elevation of the left hemidiaphragm. Persistent increased markings in the right upper lobe although there has been improvement as compared to prior study. There is no demonstrated pleural abnormality. Normal size heart. Normal mediastinum and romi. Normal visualized pulmonary arteries. Normal visualized aortic arch and descending thoracic aorta. Normal visualized thoracic spine. Normal visualized ribs, clavicles, and shoulders. There is no demonstrated abnormality of the visualized soft tissue structures of the upper abdomen. RAD/Chest 1 View (Portable) IMPRESSION: New left lower lobe infiltrate. Mild residual increased markings are seen in the right upper lobe as compared to prior study. Electronically Signed: Bc Bishop MD at 12:38 EDT ,
[2023-08-18 12:02] LABS: Anion Gap 5 (5-15); BUN 16 mg/dL (7-18); BUN/Creat Ratio 12.9 RATIO (10-20); Calcium,Total 8.8 mg/dL (8.5-10.1); Chloride 103 mmol/L (98-107); Creatinine, Serum 1.24 mg/dL (0.70-1.30); EST Glomerular Filtration Rate 62 mL/min (>60); Est Glom Filt Rate - Afr Amer 75 mL/min (>60); Estimated Creatinine Clearance 75.76 ml/min; Glucose 91 mg/dL (74-106); Potassium 4.1 mmol/L (3.5-5.1); Sodium Level 138 mmol/L (136-145)
[2023-08-18 12:12] LABS: Differential Indicated SCAN CRITERIA MET
[2023-08-18 12:13] LABS: Platelet Estimate ADEQUATE (ADEQ)
[2023-08-18] MEDS: Ondansetron 4 MG/2 ML Vial IV (12:47)
[2023-08-18] MEDS: Piperacil/Tazobactam 4.5 GM in 0.9% Normal Saline (100mL MB+) 100 ML IV (13:41)
--- NOTE | 2023-08-18 13:51 | ED.RN ---
New urine bag placed. Awaiting new urine for sample.
--- NOTE | 2023-08-18 13:53 | CT_ITS ---
STUDY: CT CHEST WITHOUT CONTRAST REASON FOR EXAM: Male, 68 years old. Hypoxia RADIATION DOSAGE (If Supplied By Facility): CTDIvol = ( 19.6 ) mGy, DLP = ( 700.39 ) mGycm TECHNIQUE: Transaxial imaging was performed without the administration of intravenous contrast material. Multiplanar coronal and sagittal images were reformatted. Individualized dose optimization techniques were used for this CT. COMPARISON: Comparison is made with prior chest radiograph done earlier today. FINDINGS: CHEST Elevation of the left hemidiaphragm. Consolidation in the left lower lobe with patchy areas of infiltrate in the right upper and right lower lobes. Increased markings in the lingular segment of the left upper lobe. Focal calcific plaque calcification in the left hemithorax. There are calcifications of the coronary arteries. Normal mediastinum. Normal hilar regions. Normal unenhanced pulmonary arteries. There is mild atherosclerotic calcification of the aortic arch. There is demineralization of the thoracic spine. Findings suggestive of small layering gallstones along the dependent portion of the gallbladder lumen. CT/Chest without Contrast IMPRESSION: Infiltration in both lungs as described worse on the left side. Calcified pleural plaques in the left hemithorax. Electronically Signed: Bc Bishop MD at 15:21 EDT ,
[2023-08-18 14:27] LABS: Bacteria 0 SEEN /hpf (None Seen); Mucous, Urine 0 SEEN /hpf (<or=2+)
[2023-08-18 14:28] LABS: Color, Urine Yellow (Yellow); Glucose, Dipstick Normal (Normal); Ketone-Dipstick Negative (Negative); Leukocyte Esterase-Dipstick 25 /ul (Negative); Nitrite-Dipstick Negative (Negative); Occult Blood-Urine 25 /ul (Negative); Protein-Dipstick Negative (Negative); Urine Bilirubin Dipstick Negative (Negative); Urine Clarity Clear (Clear); Urine Urobilinogen Normal (Normal); Urine pH 6.5 (5.0 - 8.0)
--- NOTE | 2023-08-18 14:28 | HP.PCM.HOS_ITS ---
HPI - General General Date of Admission: 08/18/23 Date of Service: 08/18/23 Chief Complaint: Shortness of breath/hypoxia HPI Narrative NERY MIDDLETON, is a 68 M who presented to the emergency department at [facility] on 08/18/2023 with shortness of breath and hypoxia. Patient's been admitted twice this month so far. He was admitted on 07/29/2023 when he was diagnosed with COVID-19 and was able to be discharged home on 07/31/2023 on room air. He was then readmitted on 08/11/2023 and was here through 08/13/2023 with hypoxia and LUPE. At that time he was placed on empiric Levaquin and maintained on his nightly BiPAP as well as in sinus pharmacy and Pep therapy. Oxygen saturations were 91% on room air at discharge and he did not qualify for home oxygen. His states that since he has been home his been quite weak and not been able to get up out of the bed very much. She was reported that his oxygen levels have been dropping over time since discharge with his most recent oxygenation status at about 83% on room air. Since he continued to worsen she brought him into the hospital. He does have sleep apnea related to his multiple sclerosis and is on nocturnal BiPAP therapy at 21/17 cmH2O nocturnally and with naps as an outpatient. Patient denies any significant sputum production but does have intermittent cough. His does indicate that he has been coughing some after eating but this is not consistent. She states she has noticed this more with liquids and soups than anything. He has no history of speech therapy evaluations or cookie swallows. He had no fever or chills. He has had some constipation his last bowel movement was 5 days ago. His does indicate that he tends to fluctuate between constipation and diarrhea as they have yet to have found a regimen that works well to keep him regular. He denies any chest pain but does indicate that he is short of breath. His states that his swelling has increased but his Lasix was discontinued at his last visit because he had significant LUPE on presentation and it was felt that it was related to dehydration from Lasix use. She has restarted his hydrochlorothiazide at home. Vital signs on presentation showed temperature of 100.3, blood pressure was 144/87, respiratory rate has not been anywhere from 20-25 and oxygen saturations were initially 87% on room air. He was placed on 5 L nasal cannula but desatted to 83% on 5 L and has been placed on a nonrebreather at 15 L with sats at 92 to 94%. He does not appear to be in any respiratory distress. His CBC is unremarkable with a normal white count and no left shift. His chemistry panel is unremarkable. A BNP has been ordered but is pending. The delay in result is because the machine is not working properly. His UA is unremarkable for any signs of infection. Chest x-ray showed bilateral patchy infiltrates and we did follow-up with a CT of his chest which demonstrated bilateral infiltrates with air bronchograms worse on the left than the right. EKG is unremarkable and shows normal sinus rhythm with normal intervals. Voltage is low overall. He was treated with IV Zosyn in the emergency department and request for admission was made based on his hypoxia. [facility] Medical History (Updated 08/18/23 @ 15:[address] Faby Meehan, DO) Abnormal EKG Atrial septal defect Bladder cancer Chronic anticoagulation COVID-19 Hx of multiple sclerosis Hyperlipidemia Hypertension Kidney stones Multiple sclerosis Obstructive sleep apnea Paroxysmal atrial fibrillation Pulmonary embolism Recurrent UTI Syncope due to orthostatic hypotension Home Medications ocrelizumab 30 mg/mL intravenous solution (Ocrevus) 600 mg IV .COMPLEX multiple sclerosis 11/04/17 [History Last Taken 05/31/23] cholecalciferol (vitamin D3) 25 mcg (1,000 unit) tablet 5,000 unit PO DAILY supplement 05/28/18 [History Last Taken 08/17/23] multivitamin with folic acid 400 mcg tablet 1 tab PO DAILY supplement 05/28/18 [History Last Taken 08/17/23] pantoprazole 40 mg tablet,delayed release 40 mg PO DAILY reflux 12/01/19 [History Last Taken 08/18/23] potassium citrate 15 mEq (1,620 mg) tablet,extended release 15 meq PO BID ##60 02/04/20 [Rx Last Taken 08/18/23] albuterol sulfate 2.5 mg/3 mL (0.083 %) solution for nebulization 2.5 mg (3 mL) inhalation Q4H PRN shortness of breath or wheezing #180 vials 01/17/21 [Rx Last Taken 08/18/23] duloxetine 60 mg capsule,delayed release 60 mg PO QHS nerve 07/02/22 [History Last Taken 08/17/23] meclizine 25 mg tablet 25 mg PO DAILY PRN Dizziness 07/02/22 [History Last Taken 08/17/23] tamsulosin 0.4 mg capsule 0.4 mg PO QHS 07/02/22 [History Last Taken 08/17/23] carvedilol 12.5 mg tablet (Coreg) 12.5 mg PO BID #180 tabs 11/08/22 [Rx Last Taken 08/18/23] apixaban 5 mg tablet 5 mg PO BID blood thinner #180 tabs 05/15/23 [Rx Last Taken 08/18/23] simvastatin 20 mg tablet 20 mg PO QHS 07/02/23 [History Last Taken 08/17/23] lisdexamfetamine 50 mg capsule 50 mg PO DAILY MS 07/03/23 [History Last Taken 08/18/23] sodium bicarbonate 650 mg tablet 650 mg PO BID 07/03/23 [History Last Taken 08/18/23] lisinopril 20 mg tablet 20 mg PO DAILY 08/11/23 [History Last Taken 08/18/23] hydrochlorothiazide 12.5 mg capsule 12.5 mg PO Q12H 08/18/23 [History Last Taken 08/18/23] vitamin E 200 unit capsule 400 unit PO DAILY 08/18/23 [History Last Taken 08/17/23] Allergy/AdvReac Type Severity Reaction Status Date / Time No Known Allergies Allergy Verified 08/11/23 20:52 Family History Father CAD (coronary artery disease) Hypertension Myocardial infarction Mother Hypertension Sister Multiple sclerosis Surgical History History of bladder surgery History of lithotripsy History of vasectomy S/P ureteral stent placement Social History household members: spouse and family Smoking Status: Never smoker alcohol intake: never substance use type: does not use caffeine: Yes (very little) ROS Constitutional Constitutional: Reports weakness; Denies anorexia, change in weight, chills, fatigue, fever(s), malaise, night sweats or other Eyes Eyes: Denies blurry vision, change in eye color, change in vision, discharge from eye(s), double vision, erythema, eye pain, loss of vision or other ENT HEENT: Denies abnormal hearing, dysphagia, ear pain, epistaxis, headache(s), hearing loss, nasal congestion, nasal discharge, post nasal drip, sinus pressure, sore throat or other Cardiovascular Cardiovascular: Reports edema; Denies chest pain, claudication, dyspnea on exertion, lightheadedness, orthopnea, palpitations, paroxysmal nocturnal dyspnea, rapid heart rate, syncope or other Respiratory/Chest Respiratory/Chest: Reports cough, dyspnea and shortness of breath at rest; Denies excessive phlegm production, hemoptysis, productive cough, shortness of breath with exertion, wheezing or other Gastrointestinal Gastrointestinal: Reports constipation; Denies abdominal pain, coffee ground emesis, diarrhea, dyspepsia, hematemesis, hematochezia, loose stools, melena, nausea, vomiting or other Genitourinary Genitourinary: Denies burning urination, difficulty urinating, dysuria, hematuria, nocturia, urinary frequency, urinary hesitancy, urinary incontinence, urinary urgency or other Musculoskeletal Musculoskeletal: Denies arthralgias, back pain, joint pain, joint stiffness, joint swelling, myalgias, neck pain or other Neurologic Neurologic: Reports abnormal gait and other Details: Chronic left-sided weakness ; Denies abnormal speech, confusion, disequilibrium, dizziness, focal weakness, headache(s), numbness, paresthesias, seizure-like activity, seizures, syncope, tingling or tremor(s) Psychiatric Psychiatric: Reports anxiety and depression; Denies homicidal ideation, suicidal ideation or other Endocrine Endocrinology: Denies change in body appearance, cold intolerance, excessive sweating, heat intolerance, polydipsia, polyuria or other Hematologic/Lymphatic Hematologic/Lymphatic: Denies anemia, easy bleeding, easy bruising, lymphadenopathy or other Allergic/Immunologic Allergic/Immunologic: Denies rhinitis, hives, eczemia, asthma or other Vital Signs Vital Signs Vital Signs: 08/18/23 10:09 08/18/23 10:15 08/18/23 10:15 Temperature 100.3 F H Temperature Source Oral Pulse Rate 92 Respiratory Rate 24 H Respiratory Effort Normal Respiratory Pattern Normal Blood Pressure 144/87 H Blood Pressure Mean 106 Pulse Ox 87 91 Oxygen Delivery Method Room Air Nasal Cannula Oxygen Flow Rate (L/min) 5 08/18/23 11:11 08/18/23 11:11 08/18/23 11:37 Temperature Temperature Source Pulse Rate 93 Respiratory Rate 25 H Respiratory Effort Respiratory Pattern Tachypnea Blood Pressure Blood Pressure Mean Pulse Ox 91 89 Oxygen Delivery Method Nasal Cannula Oxygen Flow Rate (L/min) 5 5 08/18/23 13:42 Temperature Temperature Source Pulse Rate 98 Respiratory Rate 25 H Respiratory Effort Respiratory Pattern Blood Pressure 149/99 H Blood Pressure Mean 115 Pulse Ox 90 Oxygen Delivery Method Nasal Cannula Oxygen Flow Rate (L/min) 5 Weight Weight: 140.2 kg Body Mass Index (BMI) 35.7 Physical Exam Const alert, oriented x3, no apparent distress and well nourished; Negative for average body habitus or healthy appearing Constitutional Narrative: Obese, upper middle-aged, white male, sitting up in bed, currently with nonrebreather in place, appears comfortable however, nontoxic-appearing General Appearance: cooperative HEENT normocephalic, head/scalp atraumatic and hearing grossly normal bilaterally HEENT Narrative: Mallampati is 3, no thrush Eyes PERRL, EOMs intact bilaterally and conjunctivae normal Eyes Narrative: No scleral icterus Neck no lymphadenopathy and supple Neck Narrative: Trachea midline, no thyroid enlargement Resp normal respiratory effort, no retractions, no use of accessory muscles and No clear to auscultation bilaterally Resp Narrative: Scattered wheezing and crackles bilaterally in all lung forbes with left being greater than right Auscultation: crackles and wheezes; Negative for rales or rhonchi Cardio regular rate, regular rhythm, S1 normal heart sound, S2 normal heart sound, no murmurs, no rub, no gallops and no clicks GI GI Narrative: Mild distention and mild diffuse tenderness with normal active bowel sounds, abdomen is soft Extremity Extremity Narrative: 2+ bilateral lower extremity edema with no clubbing or cyanosis Skin no rashes or lesions noted, no wounds, skin turgor normal, no jaundice, no petechiae and no mottling Skin Narrative: Skin is pale Neuro oriented x3 and CN's II-XII intact bilaterally Neuro Narrative: Significantly Limited movement on the left side Speech: speech normal Psych affect normal Psych Narrative: Eye contact is good, patient interacts appropriately Results Lab / Micro Data 08/18/23 11:30 08/18/23 11:30 Labs: Laboratory Results - last 24 hr 08/18/23 11:30: WBC 6.0, RBC 5.00, Hgb 13.3, Hct 43.1, MCV 86.2, MCH 26.6 L, MCHC 30.9 L, RDW Std Deviation 47.5 H, RDW Coeff of Bravo 15.1 H, Plt Count TNP, MPV 10.2, Immature Gran % (Auto) 0.700, Neut % (Auto) 68.0, Lymph % (Auto) 17.4 L, Cottle % (Auto) 10.4 H, Eos % (Auto) 3.2, Baso % (Auto) 0.3, Absolute Neuts (auto) 4.1, Absolute Lymphs (auto) 1.04, Nucleated RBC % 0, Platelet Estimate ADEQUATE, Sodium 138, Potassium 4.1, Chloride 103, Carbon Dioxide 30.0, Anion Gap 5, BUN 16, Creatinine 1.24, Estim Creat Clear Calc 75.76, Est GFR (MDRD) Af Amer 75, Est GFR (MDRD) Non-Af 62, BUN/Creatinine Ratio 12.9, Glucose 91, Calcium 8.8 Micro: Microbiology 08/18/23 11:50 Nasal Secretion SARS-CoV-2 & FLU Antigen (Rapid) - Final Radiology Impression Chest X-Ray 08/18/23 11:50 IMPRESSION: New left lower lobe infiltrate. Mild residual increased markings are seen in the right upper lobe as compared to prior study. Electronically Signed: Bc Bishop MD at 12:38 EDT Reading Location ID and State: [facility] / [place] , Service support , Assessment & Plan Assessment/Plan (1) Bilateral pulmonary infiltrates: (2) Hx of multiple sclerosis: (3) Atelectasis: (4) Acute respiratory failure with hypoxia: (5) Constipation: PLAN: Plan Acute hypoxic respiratory failure -Etiology is currently unclear however possible aspiration versus pneumonitis versus infectious process versus heart failure -Patient with tachypnea and marked hypoxia requiring 15 L on a nonrebreather at the time of admission -Chest x-ray showed worsening infiltrates and CT is consistent with this -Check respiratory viral panel -COVID-19 is negative -Speech therapy consult as I am concerned that there may be some component of aspiration -BNP is pending -Check echocardiogram -Last 1 done in 2019 showed an EF of 65% and stage I diastolic dysfunction with trivial tricuspid valve insufficiency and a right ventricular systolic pressure of 26 mmHg -Zosyn initiated in the emergency department and will continue -Check MRSA PCR and if positive we will add vancomycin -Check procalcitonin -BNP is currently pending however machine is down and we will have to await re sults -BiPAP nocturnally and as needed at -Pulmonary medicine consulted-discussed with Dr. Ni Possible dysphagia -N.p.o. for now -Gentle hydration for now -Speech therapy consult -Okay for meds with applesauce until evaluated by speech therapy Lower extremity edema - states that this has worsened rate recently and she is restarted his HCTZ -We will continue HCTZ for now but may need to transition to Lasix depending on echocardiogram and BNP -I am not totally convinced that his respiratory distress is related to pulmonary edema at this time however Acute on chronic constipation -Patient has not had a bowel movement about 5 days -We will schedule a rectal suppository today and then leave as needed per patient's discretion as he does have trouble with diarrhea if he gets too much stool softener -Monitor clinically Multiple sclerosis -Severe chronic left-sided weakness -PT/OT consultation -Hold home MS medication JOSH/chronic hypercapnia related to MS -Continue nocturnal BiPAP at -May need AVAPS depending on pulmonary medicine input Hyperlipidemia -continue simvastatin BPH -Continue Flomax GERD -Continue Protonix Hypertension -Continue home hydrochlorothiazide -Continue home lisinopril -Continue home carvedilol History of paroxysmal atrial fibrillation -Currently in sinus rhythm -Continue home apixaban -Continue home carvedilol History of saddle PE/DVT -Continue home apixaban History of bladder cancer status post resection and chemotherapy -Stable Anxiety/depression -Continue home duloxetine DVT prophylaxis -Home apixaban CODE STATUS -Full code is verified prior to admission Charges/Coding Visit Charges Inpatient E&M: 79954 Init Hosp L3
[2023-08-18 14:35] LABS: Red Blood Cells-Urine 0-5 SEEN /hpf (0-5); Squamous Epithelial Cells - UA 0-5 SEEN /hpf (0-5); White Blood Cells 0-5 SEEN /hpf (0-5)
--- NOTE | 2023-08-18 16:29 | ECHOCS_ITS ---
Reason For Study: EDEMA Procedure This was a 2D Doppler, Color Flow transthoracic echocardiogram. The study was technically difficult. Exam performed portable in patient room. Left Ventricle Normal size and thickness. The left ventricular ejection fraction is 55 %. Normal diastology for age. Right Ventricle Normal right ventricle. Atria The left and right atria are normal. Mitral Valve Trivial mitral valve insufficiency. Tricuspid Valve Trivial tricuspid valve insufficiency. Unable to estimate RV systolic pressure due to insufficient tricuspid regurgitant envelope. Aortic Valve Normal aortic valve. Pulmonic Valve The pulmonic valve is not well visualized. Great Vessels Normal sized aortic root. Pericardium/Pleural No pericardial effusion. Medication Diluted definity 3ml given slow IV push to enhance endocardial definition. MMode/2D Measurements & Calculations LVIDd: 4.3 cm IVSd: 1.0 cm Ao root diam: 3.3 cm LVIDs: 3.0 cm LVPWd: 1.1 cm RVDd: 3.4 cm FS: 30.8 % LAV(MOD-bp): 32.0 ml LVAd ap4: 21.7 cm2 SV(MOD-sp4): 31.0 ml LAV(MOD-bp) Indexed: 11.8 ml/m2 LVLd ap4: 7.3 cm LAV(MOD-sp2): 30.4 ml EDV(MOD-sp4): 53.1 ml LAV(MOD-sp4): 27.3 ml EDV(sp4-el): 55.0 ml LVAs ap4: 12.1 cm2 LVLs ap4: 5.5 cm ESV(MOD-sp4): 22.1 ml ESV(sp4-el): 22.7 ml EF(MOD-sp4): 58.3 % EF(sp4-el): 58.8 % SV(sp4-el): 32.3 ml LA A4 area: 11.9 cm2 LA dimension(2D): 2.7 cm RA A4 area: 10.7 cm2 Time Measurements MV dec time: 0.27 sec Doppler Measurements & Calculations MV E max henry: 57.4 cm/sec Lat Peak E' Henry: 10.5 cm/sec Med Peak E' Henry: 8.1 cm/sec MV A max henry: 67.3 cm/sec E/E' lat: 5.5 E/E' med: 7.1 MV E/A: 0.85 Ao V2 max: 113.1 cm/sec LV V1 max: 80.6 cm/sec PA V2 max: 103.7 cm/sec Ao max P.1 mmHg LV V1 max P.6 mmHg TR max henry: 239.2 cm/sec TR max P.9 mmHg ECHO/Echo Complete W/ Contrast Interpretation Summary The left ventricular ejection fraction is 55 %. The study was technically difficult. Ordering Physician: Faby Meehan Referring Physician: NEHAL MENDOZA Performed By: Julienne Loredo RDCS
[2023-08-18] MEDS: Carvedilol 12.5 MG Tablet PO (17:22)
[2023-08-18] MEDS: Bisacodyl 10 MG Suppository RC (17:22)
[2023-08-18] MEDS: hydroCHLOROthiazide 12.5mg 12.5 MG PO (18:08)
[2023-08-18 18:28] LABS: BNP,B-Type NATRIURETIC PEPTIDE 97.2 pg/mL (0-100)
[2023-08-18 18:44] LABS: Procalcitonin 0.19 ng/mL (0.00-0.09)
[2023-08-18] MEDS: Albuterol 2.5 MG/3 ML VIAL.NEB. INHALATION (20:39)
[2023-08-18] MEDS: Piperacil/Tazobactam 3.375 GM in 0.9% Normal Saline (50mL MB+) 50 ML IV (22:18)
[2023-08-18] MEDS: guaiFENesin 1,200 MG Tablet 1200 MG PO (22:19)
[2023-08-18] MEDS: Sodium Bicarbonate 650 MG Tablet PO (22:19)
[2023-08-18] MEDS: APIXABAN 5 MG TABLET PO (22:19)
[2023-08-18] MEDS: Atorvastatin Calcium 10 MG Tablet PO (22:20)
[2023-08-18] MEDS: Tamsulosin HCl 0.4 MG Capsule 0.400000000000000022 MG PO (22:20)
[2023-08-18] MEDS: Potassium Chloride Oral Tablet 10 MEQ PO (22:20)
[2023-08-18] MEDS: DULoxetine Hcl 60 MG Capsule PO (22:20)
[2023-08-18] MEDS: 0.9% Saline Lock 10 ML Syringe IV (22:50)
[2023-08-19] VITALS (13 sets, daily range): BP systolic 96–124; BP diastolic 68–82; PULSE 80–87; RESP 12–22; TEMP 36.6–37.7; O2SAT 89–96
[2023-08-19] MEDS: Piperacil/Tazobactam 3.375 GM in 0.9% Normal Saline (50mL MB+) 50 ML IV ×3 (05:15→22:46)
[2023-08-19 06:48] LABS: Absolute Lymphocyte Count 1.01 X10^3/uL (0.83-4.51); Absolute Neutrophil Count 3.5 X10^3/uL (2.0-7.7); Basophil# 0.02 X10^3/uL; Basophil% 0.4 % (0-1); Eosinophils% 3.7 % (0-5); Hematocrit 37.9 % (40-54); Hemoglobin 12.1 g/dL (13.0-16.5); Lymphocyte # 1.01 X10^3/ul (0.83-4.51); Lymphocyte % 18.5 % (19-41); Mean Corp Hgb Conc 31.9 g/dL (32-36); Mean Corpuscular Hgb 27.3 pg (27.0-32.0); Mean Corpuscular Volume 85.4 fL (80-94); Mean Platelet Vol. 8.8 fl (6.2-12.0); Monocyte# 0.74 X10^3/uL; Monocyte% 13.5 % (0-10); NRBC Flagged by Analyzer 0 % (0-5); Neutrophil # 3.45 X10^3/uL (2.7-7.7); Platelet Count 232 K/mm3 (150-450); RBC Distribution Width CV 15.1 % (11.6-14.6); RBC Distribution Width SD 47.3 fl (35.1-43.9); Red Blood Count 4.44 M/mm3 (4.6-6.2); White Blood Count 5.5 K/mm3 (4.4-11.0)
[2023-08-19 07:27] LABS: ALB/GLOB Ratio 0.5 RATIO (0.9-2.4); AST(SGOT) 37 U/L (15-37); Alanine Aminotransfer ALT/SGPT 31 U/L (16-61); Albumin, Serum 1.9 g/dL (3.2-5.0); Alkaline Phosphatase 78 U/L (45-117); Anion Gap 6 (5-15); BUN 21 mg/dL (7-18); BUN/Creat Ratio 19.3 RATIO (10-20); Calcium,Total 8.7 mg/dL (8.5-10.1); Chloride 105 mmol/L (98-107); Creatinine, Serum 1.09 mg/dL (0.70-1.30); EST Glomerular Filtration Rate 72 mL/min (>60); Est Glom Filt Rate - Afr Amer 87 mL/min (>60); Estimated Creatinine Clearance 86.18 ml/min; Globulin 4.2 g/dL (2.2-4.2); Glucose 94 mg/dL (74-106); Magnesium 2.3 mg/dL (1.6-2.6); Phosphorus 2.8 mg/dL (2.5-4.9); Potassium 3.6 mmol/L (3.5-5.1); Protein, Total 6.1 g/dL (6.4-8.2); Sodium Level 140 mmol/L (136-145)
--- NOTE | 2023-08-19 08:41 | PN.HOSP_ITS ---
Reason for Visit Reason for Visit: Diagnoses Multiple sclerosis (08/18/23) Acute respiratory failure with hypoxia (08/18/23) Atelectasis (08/18/23) Constipation, unspecified (08/18/23) Other nonspecific abnormal finding of lung field (08/18/23) Subjective Subjective Patient feeling slightly better than yesterday though still short of breath, leg s remain swollen, patient hungry and would like to eat but no other acute complaints Objective Data Objective Data Vital Signs: Vital Signs Temp Pulse Resp BP Pulse Ox O2 Del Method O2 Flow Rate 100 F H 86 22 H 96/68 93 Airvo 55 08/19/23 04:17 08/19/23 08:15 08/19/23 08:15 08/19/23 04:17 08/19/23 08:17 08/19/23 08:17 08/19/23 08:17 FiO2 70 08/19/23 08:17 Oxygen Flow Rate (L/min) 55 Oxygen Delivery Method Airvo Weight: 136.3 kg Body Mass Index (BMI) 34.7 Intake & Output: Intake and Output for Last 24 Hours 08/17/23 08/18/23 08/19/23 23:59 23:59 23:59 Intake Total 100 / 100 50 / 50 Output Total 175 / 675 500 / 500 Balance -75 / -575 -450 / -450 Lab / Micro Data 08/19/23 05:54 08/19/23 05:54 Labs: Laboratory Results - last 24 hr 08/18/23 11:30: WBC 6.0, RBC 5.00, Hgb 13.3, Hct 43.1, MCV 86.2, MCH 26.6 L, MCHC 30.9 L, RDW Std Deviation 47.5 H, RDW Coeff of Bravo 15.1 H, Plt Count TNP, MPV 10.2, Immature Gran % (Auto) 0.700, Neut % (Auto) 68.0, Lymph % (Auto) 17.4 L, [place] % (Auto) 10.4 H, Eos % (Auto) 3.2, Baso % (Auto) 0.3, Absolute Neuts (auto) 4.1, Absolute Lymphs (auto) 1.04, Nucleated RBC % 0, Platelet Estimate ADEQUATE, Sodium 138, Potassium 4.1, Chloride 103, Carbon Dioxide 30.0, Anion Gap 5, BUN 16, Creatinine 1.24, Estim Creat Clear Calc 75.76, Est GFR (MDRD) Af Amer 75, Est GFR (MDRD) Non-Af 62, BUN/Creatinine Ratio 12.9, Glucose 91, Calcium 8.8, B-Natriuretic Peptide 97.2 08/18/23 14:20: Urine Color Yellow, Urine Clarity Clear, Urine pH 6.5, Ur Specific [place] 1.010, Urine Protein Negative, Urine Glucose (UA) Normal, Urine Ketones Negative, Urine Occult Blood 25 H, Urine Nitrite Negative, Urine Bilirubin Negative, Urine Urobilinogen Normal, Ur Leukocyte Esterase 25 H, Urine RBC 0-5 SEEN, Urine WBC 0-5 SEEN, Ur Squamous Epith Cells 0-5 SEEN, Urine Bacteria 0 SEEN, Urine Mucus 0 SEEN 08/18/23 18:06: Procalcitonin 0.19 H 08/19/23 05:54: WBC 5.5, RBC 4.44 L, Hgb 12.1 L, Hct 37.9 L, MCV 85.4, MCH 27.3, MCHC 31.9 L, RDW Std Deviation 47.3 H, RDW Coeff of Bravo 15.1 H, Plt Count 232, MPV 8.8, Immature Gran % (Auto) 0.900, Neut % (Auto) 63.0, Lymph % (Auto) 18.5 L , [place] % (Auto) 13.5 H, Eos % (Auto) 3.7, Baso % (Auto) 0.4, Absolute Neuts (auto) 3.5, Absolute Lymphs (auto) 1.01, Nucleated RBC % 0, Sodium 140, Potassium 3.6, Chloride 105, Carbon Dioxide 29.0, Anion Gap 6, BUN 21 H, Creatinine 1.09, Estim Creat Clear Calc 86.18, Est GFR (MDRD) Af Amer 87, Est GFR (MDRD) Non-Af 72, BUN/Creatinine Ratio 19.3, Glucose 94, Calcium 8.7, Phosphorus 2.8, Magnesium 2.3, Total Bilirubin 0.50, AST 37, ALT 31, Alkaline Phosphatase 78, Total Protein 6.1 L, Albumin 1.9 L, Globulin 4.2, Albumin/ Globulin Ratio 0.5 L Micro: Microbiology 08/18/23 15:05 Mucosa - Nose Respiratory Panel (PCR) - Final 08/18/23 11:50 Nasal Secretion SARS-CoV-2 & FLU Antigen (Rapid) - Final Radiography Diagnostic Testing: Radiology Impression Chest X-Ray 08/18/23 11:50 IMPRESSION: New left lower lobe infiltrate. Mild residual increased markings are seen in the right upper lobe as compared to prior study. Electronically Signed: Bc Bishop MD at 12:38 EDT , Chest CT 08/18/23 13:53 IMPRESSION: Infiltration in both lungs as described worse on the left side. Calcified pleural plaques in the left hemithorax. Electronically Signed: Bc Bishop MD at 15:21 EDT , Physical Exam Narrative General: Alert, oriented HEENT: Atraumatic, normocephalic Eyes: Anicteric, normal conjunctiva, extraocular movements grossly intact Neck: Supple Respiratory: Diminished bilaterally with increased respiratory effort Cardiovascular: Regular rate GI: Soft, nontender, nondistended Extremities: 2-3+ lower extremity edema Musculoskeletal: Moving around in bed, does not walk Neuro: Baseline deficits Skin: No rashes appreciated Psych: Cooperative Assessment & Plan Assessment/Plan (1) Bilateral pulmonary infiltrates: (2) Hx of multiple sclerosis: (3) Atelectasis: (4) Acute respiratory failure with hypoxia: (5) Constipation: PLAN: Plan Acute hypoxic respiratory failure -Etiology is currently unclear however possible aspiration versus pneumonitis versus infectious process versus heart failure -Patient with tachypnea and marked hypoxia requiring 15 L on a nonrebreather at the time of admission -Chest x-ray showed worsening infiltrates and CT is consistent with this -Check respiratory viral panel -COVID-19 is negative -Speech therapy consult as I am concerned that there may be some component of as piration -BNP is pending -Check echocardiogram -Last 1 done in 2019 showed an EF of 65% and stage I diastolic dysfunction with trivial tricuspid valve insufficiency and a right ventricular systolic p ressure of 26 mmHg -Zosyn initiated in the emergency department and will continue -Check MRSA PCR and if positive we will add vancomycin -Check procalcitonin -BNP is currently pending however machine is down and we will have to await results -BiPAP nocturnally and as needed at -Pulmonary medicine consulted-discussed with Dr. Ni -08/19: Was on BiPAP overnight which he wears, this a.m. patient is on Airvo, pulm consult, continue Zosyn, urine antigens negative, respiratory panel and COVID-negative, suspect a large component of fluid overload. Patient being aggressively diuresed, echocardiogram with EF of 55% but technically difficult study, I's and O's, daily weights Possible dysphagia -N.p.o. for now -Gentle hydration for now -Speech therapy consult -Okay for meds with applesauce until evaluated by speech therapy -08/19: Speech consult, patient for cookie swallow hopefully tomorrow once he is able to be weaned down on Airvo Lower extremity edema - states that this has worsened rate recently and she is restarted his HCTZ -We will continue HCTZ for now but may need to transition to Lasix depending on echocardiogram and BNP -I am not totally convinced that his respiratory distress is related to pulmonary edema at this time however -08/19: BNP 97.2, echo with EF 55% but technically difficult study and unable to further assess, given clinical picture patient being aggressively diuresed Acute on chronic constipation -Patient has not had a bowel movement about 5 days -We will schedule a rectal suppository today and then leave as needed per patient's discretion as he does have trouble with diarrhea if he gets too much stool softener -Monitor clinically -08/19: Monitor and adjust bowel regimen as needed Multiple sclerosis -Severe chronic left-sided weakness -PT/OT consultation -Hold home MS medication -08/19: PT/OT JOSH/chronic hypercapnia related to MS -Continue nocturnal BiPAP at -May need AVAPS depending on pulmonary medicine input -08/19: BiPAP nightly which will be changed to AVAPS, pulm on board Hyperlipidemia -continue simvastatin BPH -Continue Flomax GERD -Continue Protonix Hypertension -Continue home lisinopril -Continue home carvedilol -08/19: BP 96/68 this a.m., will hold home lisinopril, continue home carvedilol History of paroxysmal atrial fibrillation -Currently in sinus rhythm -Continue home apixaban -Continue home carvedilol -08/19: Continue carvedilol and Eliquis History of saddle PE/DVT -Continue home apixaban History of bladder cancer status post resection and chemotherapy -Stable Anxiety/depression -Continue home duloxetine DVT prophylaxis -Home apixaban CODE STATUS -Full code is verified prior to admission Charges/Coding Visit Charges Inpatient E&M: 64274 Subs Hosp L2
[2023-08-19] MEDS: APIXABAN 5 MG TABLET PO ×2 (09:00→22:46)
[2023-08-19] MEDS: Vitamin E 400 UNITS Capsule PO (09:01)
[2023-08-19] MEDS: Potassium Chloride Oral Tablet 10 MEQ PO ×2 (09:01→22:47)
[2023-08-19] MEDS: Cholecalciferol (VIT D3) 25 MCG TABLET (1,000 UNITS) 125 MCG PO (09:02)
[2023-08-19] MEDS: Multivitamins,Therapeutic Tablet 1 TABLET PO (09:02)
[2023-08-19] MEDS: Pantoprazole Sodium 40 MG Tablet PO (09:03)
[2023-08-19] MEDS: Furosemide 40 MG/4 ML Vial IV ×3 (09:03→22:48)
[2023-08-19] MEDS: guaiFENesin 1,200 MG Tablet 1200 MG PO ×2 (09:03→22:47)
[2023-08-19] MEDS: Sodium Bicarbonate 650 MG Tablet PO ×2 (09:16→22:47)
--- NOTE | 2023-08-19 09:55 | CON.PCM.CC_ITS ---
Assessment & Plan Assessment/Plan (1) Acute respiratory failure with hypoxia: (2) Hx of multiple sclerosis: (3) Bilateral pulmonary infiltrates: PLAN: Plan RECOMMENDATIONS: 1. Initiate aggressive diuresis 2. Obtain echocardiogram 3. Empiric antibiotics for now 4. Transition to NIV from baseline BiPAP 5. Obtain room air ABG prior to discharge 6. Obtain swallow evaluation IMPRESSIONS: 1. Acute hypoxic respiratory failure Unclear etiology at this time. Multiple possible etiologies need to be investigated. Patient is up over 11 kg from earlier this month with significant swelling of the left upper extremity and bilateral lower extremities. Patient is on anticoagulation, so DVT would be unlikely. We will treat patient with aggressive diuresis. Patient's last echocardiogram was over 3 years ago. Patient does have significant elevation of the left hemidiaphragm. Unclear if this is related to his baseline MS versus secondary process. For this reason, patient will be transitioned over to an NIV with a tidal volume goal of 500 cc. Patient will need an ABG on room air if possible prior to discharge patient may also be having silent aspiration leading to recurrent admissions. Patient is on empiric antibiotics for now, but does not have significant fever or leukocytosis. Patient's COVID test is negative indicating that he has cleared the COVID from earlier this month. 2. MS/JOSH/hyperlipidemia/BPH/hypertension/history of PE/anxiety/depression Complicates care, management, recovery and prognosis. Patient will be transitioned over to an NIV for JOSH control. Patient has a Vo catheter in place at this time. Patient can remain on anticoagulation from my perspective. HPI Consult Data Date of Consult: 08/19/23 HPI Narrative HPI Narrative: NERY MIDDLETON is a 68 M, with past medical history listed below, who presents to [facility] 08/18/2023 secondary to progressive hypoxia. Patient has been admitted 3 times in the last month secondary to UTI and was just discharged this past . Patient did not have any hypoxia during that hospitalization, but did have diuretics discontinued. Patient reportedly had saturations of 83% on room air despite breathing treatments. Patient had not reported any productive cough, fever or chills. Patient is on blood thinners at baseline. In the ER, patient was noted to have a temperature of 100.3 ?F and 87% on room air. Patient had to be placed on 5 L to control hypoxia and did have tachypnea as high as 25 breaths/min. Patient's blood pressure was noted to be 129/99. Laboratory work-up was relatively unremarkable with a white blood cell count of 6 and hemoglobin of 13. Chemistry showed a bicarbonate of 30 with a creatinine of 1.24 and a glucose of 91. Chest x-ray showed a left lower infiltrate with alveolar pattern and fluid in the fissure. Patient was initiated on Zosyn and admitted to the hospital for further evaluation. A CT of the chest was completed showing continued elevation of the left hemidiaphragm as high as the [place]. On my evaluation this morning, patient is requiring 75% Airvo to maintain saturations. Patient states he feels relatively comfortable at rest, but does get short of breath with minimal exertion. Patient states he has had significant swelling of the lower extremities since his discharge. Patient states he has not felt normal for over a month. Patient does report a cough, but states this is nonproductive. Patient states its been harder to move around. Patient does have significant baseline left-sided weakness. Patient states he has been compliant with his BiPAP therapy when he is not hospitalized. Patient states he has been compliant with his anticoagulation therapy. Spoke with patient's by phone. Patient does have an echocardiogram scheduled for of this week as an outpatient. Patient was recently placed on Lasix secondary to swelling. Patient does have a kidney stone being monitored by urology, but reportedly this is nonobstructive. Otherwise, no additional information was provided. Review of systems otherwise negative from a constitutional, HEENT, respiratory, cardiovascular, GI, genitourinary, musculoskeletal, skin, neurologic, psychiatric and hematologic system unless stated above. [facility] Medical History Abnormal EKG Atrial septal defect Bladder cancer Chronic anticoagulation COVID-19 Hx of multiple sclerosis Hyperlipidemia Hypertension Kidney stones Multiple sclerosis Obstructive sleep apnea Paroxysmal atrial fibrillation Pulmonary embolism Recurrent UTI Syncope due to orthostatic hypotension Home Medications ocrelizumab 30 mg/mL intravenous solution (Ocrevus) 600 mg IV .COMPLEX multiple sclerosis 11/04/17 [History Last Taken 05/31/23] cholecalciferol (vitamin D3) 25 mcg (1,000 unit) tablet 5,000 unit PO DAILY supplement 05/28/18 [History Last Taken 08/17/23] multivitamin with folic acid 400 mcg tablet 1 tab PO DAILY supplement 05/28/18 [History Last Taken 08/17/23] pantoprazole 40 mg tablet,delayed release 40 mg PO DAILY reflux 12/01/19 [History Last Taken 08/18/23] potassium citrate 15 mEq (1,620 mg) tablet,extended release 15 meq PO BID ##60 02/04/20 [Rx Last Taken 08/18/23] albuterol sulfate 2.5 mg/3 mL (0.083 %) solution for nebulization 2.5 mg (3 mL) inhalation Q4H PRN shortness of breath or wheezing #180 vials 01/17/21 [Rx Last Taken 08/18/23] duloxetine 60 mg capsule,delayed release 60 mg PO QHS nerve 07/02/22 [History Last Taken 08/17/23] meclizine 25 mg tablet 25 mg PO DAILY PRN Dizziness 07/02/22 [History Last Taken 08/17/23] tamsulosin 0.4 mg capsule 0.4 mg PO QHS 07/02/22 [History Last Taken 08/17/23] carvedilol 12.5 mg tablet (Coreg) 12.5 mg PO BID #180 tabs 11/08/22 [Rx Last Taken 08/18/23] apixaban 5 mg tablet 5 mg PO BID blood thinner #180 tabs 05/15/23 [Rx Last Taken 08/18/23] simvastatin 20 mg tablet 20 mg PO QHS 07/02/23 [History Last Taken 08/17/23] lisdexamfetamine 50 mg capsule 50 mg PO DAILY MS 07/03/23 [History Last Taken 08/18/23] sodium bicarbonate 650 mg tablet 650 mg PO BID 07/03/23 [History Last Taken 08/18/23] lisinopril 20 mg tablet 20 mg PO DAILY 08/11/23 [History Last Taken 08/18/23] hydrochlorothiazide 12.5 mg capsule 12.5 mg PO Q12H 08/18/23 [History Last Taken 08/18/23] vitamin E 200 unit capsule 400 unit PO DAILY 08/18/23 [History Last Taken 08/17/23] Allergy/AdvReac Type Severity Reaction Status Date / Time No Known Allergies Allergy Verified 08/11/23 20:52 Family History Father CAD (coronary artery disease) Hypertension Myocardial infarction Mother Hypertension Sister Multiple sclerosis Surgical History History of bladder surgery History of lithotripsy History of vasectomy S/P ureteral stent placement Social History household members: spouse and family Smoking Status: Never smoker alcohol intake: never substance use type: does not use caffeine: Yes (very little) ROS ROS Narrative See HPI Physical Exam Const alert, oriented x3, no apparent distress and well nourished; Negative for average body habitus or healthy appearing Constitutional Narrative: Patient on Airvo during my evaluation General Appearance: cooperative HEENT normocephalic, head/scalp atraumatic and hearing grossly normal bilaterally HEENT Narrative: Mallampati is 3, no thrush Eyes PERRL, EOMs intact bilaterally and conjunctivae normal Eyes Narrative: No scleral icterus Neck no lymphadenopathy and supple Neck Narrative: Trachea midline, no thyroid enlargement Resp normal respiratory effort, no retractions, no use of accessory muscles and No clear to auscultation bilaterally Resp Narrative: Scattered wheezing and crackles bilaterally in all lung forbes with left being greater than right Auscultation: crackles and wheezes; Negative for rales or rhonchi Cardio regular rate, regular rhythm, S1 normal heart sound, S2 normal heart sound, no murmurs, no rub, no gallops and no clicks Extremity Extremity Narrative: Significant edema noted of the left upper extremity and bilateral lower extremities (3+) Skin no rashes or lesions noted, no wounds, skin turgor normal, no jaundice, no petechiae and no mottling Skin Narrative: Skin is pale Neuro oriented x3 and CN's II-XII intact bilaterally Neuro Narrative: Significantly Limited movement on the left side Speech: speech normal Psych affect normal Psych Narrative: Eye contact is good, patient interacts appropriately Medical Records Data Attestation: I reviewed the patient's medical records Medical records narrative: CT of the chest was compared to previous study from 2019. There has been significant elevation of left hemidiaphragm compared to 2017. Current hemidiaphragm is as high as the [place] Lab / Micro Data Attestation: I reviewed the patient's lab results. 08/19/23 05:54 08/19/23 05:54 Labs: Laboratory Results - last 24 hr 08/18/23 11:30: WBC 6.0, RBC 5.00, Hgb 13.3, Hct 43.1, MCV 86.2, MCH 26.6 L, MCHC 30.9 L, RDW Std Deviation 47.5 H, RDW Coeff of Bravo 15.1 H, Plt Count TNP, MPV 10.2, Immature Gran % (Auto) 0.700, Neut % (Auto) 68.0, Lymph % (Auto) 17.4 L, [place] % (Auto) 10.4 H, Eos % (Auto) 3.2, Baso % (Auto) 0.3, Absolute Neuts (auto) 4.1, Absolute Lymphs (auto) 1.04, Nucleated RBC % 0, Platelet Estimate ADEQUATE, Sodium 138, Potassium 4.1, Chloride 103, Carbon Dioxide 30.0, Anion Gap 5, BUN 16, Creatinine 1.24, Estim Creat Clear Calc 75.76, Est GFR (MDRD) Af Amer 75, Est GFR (MDRD) Non-Af 62, BUN/Creatinine Ratio 12.9, Glucose 91, Calcium 8.8, B-Natriuretic Peptide 97.2 08/18/23 14:20: Urine Color Yellow, Urine Clarity Clear, Urine pH 6.5, Ur Specific [place] 1.010, Urine Protein Negative, Urine Glucose (UA) Normal, Urine Ketones Negative, Urine Occult Blood 25 H, Urine Nitrite Negative, Urine Bilirubin Negative, Urine Urobilinogen Normal, Ur Leukocyte Esterase 25 H, Urine RBC 0-5 SEEN, Urine WBC 0-5 SEEN, Ur Squamous Epith Cells 0-5 SEEN, Urine Bacteria 0 SEEN, Urine Mucus 0 SEEN 08/18/23 18:06: Procalcitonin 0.19 H 08/19/23 05:54: WBC 5.5, RBC 4.44 L, Hgb 12.1 L, Hct 37.9 L, MCV 85.4, MCH 27.3, MCHC 31.9 L, RDW Std Deviation 47.3 H, RDW Coeff of Bravo 15.1 H, Plt Count 232, MPV 8.8, Immature Gran % (Auto) 0.900, Neut % (Auto) 63.0, Lymph % (Auto) 18.5 L , [place] % (Auto) 13.5 H, Eos % (Auto) 3.7, Baso % (Auto) 0.4, Absolute Neuts (auto) 3.5, Absolute Lymphs (auto) 1.01, Nucleated RBC % 0, Sodium 140, Potassium 3.6, Chloride 105, Carbon Dioxide 29.0, Anion Gap 6, BUN 21 H, Creatinine 1.09, Estim Creat Clear Calc 86.18, Est GFR (MDRD) Af Amer 87, Est GFR (MDRD) Non-Af 72, BUN/Creatinine Ratio 19.3, Glucose 94, Calcium 8.7, Phosphorus 2.8, Magnesium 2.3, Total Bilirubin 0.50, AST 37, ALT 31, Alkaline Phosphatase 78, Total Protein 6.1 L, Albumin 1.9 L, Globulin 4.2, Albumin/Globulin Ratio 0.5 L Micro: Microbiology 08/18/23 15:05 Mucosa - Nose Respiratory Panel (PCR) - Final 08/18/23 11:50 Nasal Secretion SARS-CoV-2 & FLU Antigen (Rapid) - Final Radiology Impression Chest X-Ray 08/18/23 11:50 IMPRESSION: New left lower lobe infiltrate. Mild residual increased markings are seen in the right upper lobe as compared to prior study. Electronically Signed: Bc Bishop MD at 12:38 EDT , Chest CT 08/18/23 13:53 IMPRESSION: Infiltration in both lungs as described worse on the left side. Calcified pleural plaques in the left hemithorax. Electronically Signed: Bc Bishop MD at 15:21 EDT , Charges/Coding Visit Charges Inpatient E&M: 40591 Init Hosp L3
--- NOTE | 2023-08-19 14:10 | CASEMGMT ---
ELIZABETH PINEDA chart review: Patient was admitted 07/29-07/31/23 and 08/11-08/13/23 for UTI, hypotension and covid. SEE ELIZABETH PINEDA assessment on 07/29/23. Patient was discharged to home 08/13/23 with C, family support, and follow-up plans in place. Patient did not qualify for home oxygen at discharge. Patient returned 08/18/23 for hypoxic respiratoty failure and was stating at 87% on Room air at home. Patient was admitted and placed on 5-10lpm high flow oxygen. Patient is currently on Airvo. ELIZABETH PINEDA discussed readmission with patient. Patient states he was taking medications as prescribed. Patient state C had seen patient. Patient returned to [facility] prior to PCP appt. Patient wishes with discharge home with resumption of HHC. Will monitor for home oxygen.
[2023-08-19] MEDS: 0.9% Saline Lock 10 ML Syringe IV ×2 (14:16→22:58)
--- NOTE | 2023-08-19 14:30 | CHAPLAIN ---
Type of Pastoral Visit _x__ Initial Visit ___ Follow-up Visit ___ On-call Visit ___ General Patient Visit ___ Spiritual Assessment ___ Family Conference ___ Bereavement ___ Rapid Response ___ Code Blue ___ Other (describe below) Pastoral Care Referral From _x__ Patient _x__ Family ___ Nurse ___ Physician ___ [employer] Canvas Fabricator ___ Supervisor Keymodule Assembly ___ Other (describe below) Sacrament/Intervention _x__ Active listening ___ Anointing ___ Confucianist ___ Bereavement ___ Communion ___ Terri exploration ___ _x__ Life review _x__ Prayer ___ Reconciliation ___ Sacrament of Sick _x__ Supportive presence ___ Wedding ___ Other (describe below) Pastoral Comments patient has returned again from a recent hospital admission; pt and daughter are in the room; pt admits some discouragement at being in hospital again so soon; pt goal is to have medical team discover what is going on and getting relief; discussion about what pt can do for his own encouragement; pt also uses terri in God for perspective and hope; pt welcomes prayers and presence of the server engineer
--- NOTE | 2023-08-19 14:47 | CASEMGMT ---
Social Work SW spoke with pt regarding advance directives. Pt states he has completed a living will and health care power of health and safety specialist naming his Mirella. Pt aware documents are not on file at [facility] and SW requested they be brought in for scanning into the medical record. GREER Funez
[2023-08-19] MEDS: Carvedilol 12.5 MG Tablet PO (16:52)
[2023-08-19] MEDS: Atorvastatin Calcium 10 MG Tablet PO (22:47)
[2023-08-19] MEDS: DULoxetine Hcl 60 MG Capsule PO (22:47)
[2023-08-19] MEDS: Tamsulosin HCl 0.4 MG Capsule 0.400000000000000022 MG PO (22:47)
[2023-08-20] VITALS (16 sets, daily range): BP systolic 92–131; BP diastolic 66–88; PULSE 70–90; RESP 12–19; TEMP 35.6–36.7; O2SAT 94–98
[2023-08-20] MEDS: Piperacil/Tazobactam 3.375 GM in 0.9% Normal Saline (50mL MB+) 50 ML IV ×3 (05:06→20:43)
[2023-08-20 05:38] LABS: Absolute Neutrophil Count 2.7 X10^3/uL (2.0-7.7); Basophil# 0.01 X10^3/uL; Basophil% 0.2 % (0-1); Eosinophil# 0.28 X10^3/uL; Eosinophils% 5.7 % (0-5); Hematocrit 39.2 % (40-54); Hemoglobin 12.2 g/dL (13.0-16.5); Lymphocyte % 20.3 % (19-41); Mean Corp Hgb Conc 31.1 g/dL (32-36); Mean Corpuscular Hgb 26.8 pg (27.0-32.0); Mean Platelet Vol. 8.7 fl (6.2-12.0); Monocyte# 0.85 X10^3/uL; Monocyte% 17.2 % (0-10); NRBC Flagged by Analyzer 0 % (0-5); Neutrophil # 2.74 X10^3/uL (2.7-7.7); Neutrophil % 55.6 % (47-70); Platelet Count 267 K/mm3 (150-450); RBC Distribution Width SD 47.7 fl (35.1-43.9); Red Blood Count 4.56 M/mm3 (4.6-6.2); White Blood Count 4.9 K/mm3 (4.4-11.0)
[2023-08-20 06:02] LABS: Anion Gap 5 (5-15); BUN 21 mg/dL (7-18); BUN/Creat Ratio 15.3 RATIO (10-20); Calcium,Total 8.8 mg/dL (8.5-10.1); Chloride 103 mmol/L (98-107); Creatinine, Serum 1.37 mg/dL (0.70-1.30); EST Glomerular Filtration Rate 55 mL/min (>60); Est Glom Filt Rate - Afr Amer 67 mL/min (>60); Estimated Creatinine Clearance 68.57 ml/min; Glucose 97 mg/dL (74-106); Potassium 3.4 mmol/L (3.5-5.1); Sodium Level 140 mmol/L (136-145)
--- NOTE | 2023-08-20 07:42 | PCM.PN.HOSP ---
Reason for Visit Reason for Visit: Diagnoses Multiple sclerosis (08/18/23) Acute respiratory failure with hypoxia (08/18/23) Atelectasis (08/18/23) Constipation, unspecified (08/18/23) Other nonspecific abnormal finding of lung field (08/18/23) Subjective Subjective Is feeling better today, on high flow but has not been dependent on airvo this a.m., looking forward to cookScreen Objective Data Objective Data Vital Signs: Vital Signs Temp Pulse Resp BP Pulse Ox O2 Del Method O2 Flow Rate 96.0 F L 75 16 92/67 97 Bi-pap 55 08/20/23 05:00 08/20/23 05:14 08/20/23 05:14 08/20/23 05:00 08/20/23 05:14 08/20/23 05:08 08/19/23 22:00 FiO2 40 08/20/23 05:14 Oxygen Flow Rate (L/min) 55 Oxygen Delivery Method Bi-pap Weight: 136.3 kg Body Mass Index (BMI) 34.7 Intake & Output: Intake and Output for Last 24 Hours 08/18/23 08/19/23 08/20/23 23:59 23:59 23:59 Intake Total 100 / 100 150 / 175 75 / 75 Output Total 175 / 675 500 / 850 350 / 350 Balance -75 / -575 -350 / -675 -275 / -275 Lab / Micro Data 08/20/23 05:28 08/20/23 05:28 Labs: Laboratory Results - last 24 hr 08/20/23 05:28: WBC 4.9, RBC 4.56 L, Hgb 12.2 L, Hct 39.2 L, MCV 86.0, MCH 26.8 L, MCHC 31.1 L, RDW Std Deviation 47.7 H, RDW Coeff of Bravo 15.0 H, Plt Count 267, MPV 8.7, Immature Gran % (Auto) 1.000 H, Neut % (Auto) 55.6, Lymph % (Auto) 20.3, [place] % (Auto) 17.2 H, Eos % (Auto) 5.7 H, Baso % (Auto) 0.2, Absolute Neuts (auto) 2.7, Absolute Lymphs (auto) 1.00, Nucleated RBC % 0, Sodium 140, Potassium 3.4 L, Chloride 103, Carbon Dioxide 32.0, Anion Gap 5, BUN 21 H, Creatinine 1.37 H, Estim Creat Clear Calc 68.57, Est GFR (MDRD) Af Amer 67, Est GFR (MDRD) Non-Af 55 L, BUN/Creatinine Ratio 15.3, Glucose 97, Calcium 8.8 Micro: Microbiology 08/18/23 15:05 Mucosa - Nose Respiratory Panel (PCR) - Final 08/18/23 11:50 Nasal Secretion SARS-CoV-2 & FLU Antigen (Rapid) - Final Radiography Diagnostic Testing: Radiology Impression Echocardiogram 08/18/23 16:29 Interpretation Summary The left ventricular ejection fraction is 55 %. The study was technically difficult. Ordering Physician: Faby Meehan Referring Physician: NEHAL MENDOZA Performed By: Julienne Loredo RDCS Physical Exam Narrative General: Alert, oriented HEENT: Atraumatic, normocephalic Eyes: Anicteric, normal conjunctiva, extraocular movements grossly intact Neck: Supple Respiratory: Diminished bilaterally with wheezes and crackles, with improving respiratory effort Cardiovascular: Regular rate GI: Soft, nontender, nondistended Extremities: 2-3+ lower extremity edema Musculoskeletal: Moving around in bed, does not walk Neuro: Baseline deficits Skin: No rashes appreciated Psych: Cooperative Assessment & Plan Assessment/Plan (1) Bilateral pulmonary infiltrates: (2) Hx of multiple sclerosis: (3) Atelectasis: (4) Acute respiratory failure with hypoxia: (5) Constipation: PLAN: Plan Acute hypoxic respiratory failure -Etiology is currently unclear however possible aspiration versus pneumonitis versus infectious process versus heart failure -Patient with tachypnea and marked hypoxia requiring 15 L on a nonrebreather at the time of admission -Chest x-ray showed worsening infiltrates and CT is consistent with this -Check respiratory viral panel -COVID-19 is negative -Speech therapy consult as I am concerned that there may be some component of aspiration -BNP is pending -Check echocardiogram -Last 1 done in 2019 showed an EF of 65% and stage I diastolic dysfunction with trivial tricuspid valve insufficiency and a right ventricular systolic pressure of 26 mmHg -Zosyn initiated in the emergency department and will continue -Check MRSA PCR and if positive we will add vancomycin -Check procalcitonin -BNP is currently pending however machine is down and we will have to await results -BiPAP nocturnally and as needed at -Pulmonary medicine consulted-discussed with Dr. Ni -08/19: Was on BiPAP overnight which he wears, this a.m. patient is on Airvo, pulm consult, continue Zosyn, urine antigens negative, respiratory panel and COVID-negative, suspect a large component of fluid overload. Patient being aggressively diuresed, echocardiogram with EF of 55% but technically difficult study, I's and O's, daily weights -08/20: Lasix decreased to twice daily, potassium being replaced, presently on Zosyn, continue to wean O2 as tolerated Possible dysphagia -N.p.o. for now -Gentle hydration for now -Speech therapy consult -Okay for meds with applesauce until evaluated by speech therapy -08/19: Speech consult, patient for cookie swallow hopefully tomorrow once he is able to be weaned down on Airvo -08/20: Plan for cookie swallow today CKDIIIb -Creatinine 1.24 on arrival, decreased slightly yesterday but increased 1.37 today, Lasix scaled back to twice daily, continue to monitor daily weights and I's and O's Lower extremity edema - states that this has worsened rate recently and she is restarted his HCTZ -We will continue HCTZ for now but may need to transition to Lasix depending on echocardiogram and BNP -I am not totally convinced that his respiratory distress is related to pulmonary edema at this time however -08/19: BNP 97.2, echo with EF 55% but technically difficult study and unable to further assess, given clinical picture patient being aggressively diuresed -08/20: Lasix decreased to twice daily today Acute on chronic constipation -Patient has not had a bowel movement about 5 days -We will schedule a rectal suppository today and then leave as needed per patient's discretion as he does have trouble with diarrhea if he gets too much stool softener -Monitor clinically -08/19: Monitor and adjust bowel regimen as needed Multiple sclerosis -Severe chronic left-sided weakness -PT/OT consultation -Hold home MS medication -08/19: PT/OT JOSH/chronic hypercapnia related to MS -Continue nocturnal BiPAP at / -May need AVAPS depending on pulmonary medicine input -08/19: BiPAP nightly which will be changed to AVAPS, pulm on board Hyperlipidemia -continue simvastatin BPH -Continue Flomax GERD -Continue Protonix Hypertension -Continue home lisinopril -Continue home carvedilol -08/19: BP 96/68 this a.m., will hold home lisinopril, continue home carvedilol -08/20: BP remains somewhat low, will scale back on carvedilol History of paroxysmal atrial fibrillation -Currently in sinus rhythm -Continue home apixaban -Continue home carvedilol -08/19: Continue carvedilol and Eliquis History of saddle PE/DVT -Continue home apixaban History of bladder cancer status post resection and chemotherapy -Stable Anxiety/depression -Continue home duloxetine DVT prophylaxis -Home apixaban CODE STATUS -Full code is verified prior to admission Time spent in the patient's overall evaluation,decision-making process, review of diagnostic data, adjustment of management, discussion with other providers, nursing nursing and ancillary staff involved in patient's care documentation, 40 minutes Charges/Coding Visit Charges Inpatient E&M: 19818 [facility] Hosp L2
[2023-08-20] MEDS: Potassium Chloride 10mEq/100mL 10 MEQ/100 ML IV.SOLN. 100 MEQ IV BOLUS (09:22)
[2023-08-20] MEDS: Carvedilol 6.25 MG Tablet PO ×2 (09:23→18:50)
[2023-08-20] MEDS: Multivitamins,Therapeutic Tablet 1 TABLET PO (09:25)
[2023-08-20] MEDS: Vitamin E 400 UNITS Capsule PO (09:25)
[2023-08-20] MEDS: guaiFENesin 1,200 MG Tablet 1200 MG PO ×2 (09:25→20:43)
[2023-08-20] MEDS: Pantoprazole Sodium 40 MG Tablet PO (09:25)
[2023-08-20] MEDS: Potassium Chloride Oral Tablet 10 MEQ PO ×2 (09:25→20:43)
[2023-08-20] MEDS: Cholecalciferol (VIT D3) 25 MCG TABLET (1,000 UNITS) 125 MCG PO (09:25)
[2023-08-20] MEDS: Sodium Bicarbonate 650 MG Tablet PO ×2 (09:25→20:43)
[2023-08-20] MEDS: APIXABAN 5 MG TABLET PO ×2 (09:26→20:43)
--- NOTE | 2023-08-20 09:45 | PN.CC_ITS ---
Assessment & Plan Assessment/Plan (1) Acute respiratory failure with hypoxia: (2) Hx of multiple sclerosis: (3) Bilateral pulmonary infiltrates: PLAN: Plan RECOMMENDATIONS: 1. Decrease aggressive diuresis 2. Electrolyte supplementation as necessary 3. Possibly discontinue antibiotics at 48 hours if not aspirating 4. Continue NIV 5. Obtain room air ABG prior to discharge 6. Await swallow evaluation IMPRESSIONS: 1. Acute hypoxic respiratory failure Unclear etiology at this time. Multiple possible etiologies need to be investigated. Patient is up over 11 kg from earlier this month with significant swelling of the left upper extremity and bilateral lower extremities. Patient is on anticoagulation, so DVT would be unlikely. We will treat patient with aggressive diuresis. Patient does appear to be responding to diuretic therapy. Echocardiogram was relatively unhelpful secondary to window quality. Patient to have a swallow study to evaluate for silent aspiration. If patient found to have silent aspiration, anticipate 5 days total of antibiotics 2. MS/JOSH/hyperlipidemia/BPH/hypertension/history of PE/anxiety/depression Complicates care, management, recovery and prognosis. Patient will be transitioned over to an NIV for JOSH control. Patient has a Vo catheter in place at this time. Patient can remain on anticoagulation from my perspective. Swallow evaluation to be completed today. Subjective Subjective The patient did okay overnight. Patient does not have accurate I's and O's secondary to incontinence. Patient subjectively feels improved compared to previous. Patient has been able to be transitioned to 12 L nasal cannula following NIV overnight. Patient is reporting some dry mouth, but is planning on going to a swallow study later this morning for an evaluation. Objective Data Objective Data Vital Signs: Vital Signs Temp Pulse Resp BP Pulse Ox O2 Del Method O2 Flow Rate 36.4 C L 87 13 111/73 94 High Flow 10 08/20/23 08:00 08/20/23 08:00 08/20/23 08:00 08/20/23 08:00 08/20/23 08:30 08/20/23 08:30 08/20/23 08:30 FiO2 40 08/20/23 05:14 Oxygen Flow Rate (L/min) 10 Oxygen Delivery Method High Flow Weight: 136.3 kg Body Mass Index (BMI) 34.7 Intake & Output: Intake and Output for Last 24 Hours 08/18/23 08/19/23 08/20/23 23:59 23:59 23:59 Intake Total 100 / 100 150 / 175 125 / 125 Output Total 175 / 675 500 / 850 750 / 750 Balance -75 / -575 -350 / -675 -625 / -625 Lab / Micro Data Attestation: I reviewed the patient's lab results. 08/20/23 05:28 08/20/23 05:28 Labs: Laboratory Results - last 24 hr 08/20/23 05:28: WBC 4.9, RBC 4.56 L, Hgb 12.2 L, Hct 39.2 L, MCV 86.0, MCH 26.8 L, MCHC 31.1 L, RDW Std Deviation 47.7 H, RDW Coeff of Bravo 15.0 H, Plt Count 267, MPV 8.7, Immature Gran % (Auto) 1.000 H, Neut % (Auto) 55.6, Lymph % (Auto) 20.3, [place] % (Auto) 17.2 H, Eos % (Auto) 5.7 H, Baso % (Auto) 0.2, Absolute Neuts (auto) 2.7, Absolute Lymphs (auto) 1.00, Nucleated RBC % 0, Sodium 140, Potassium 3.4 L, Chloride 103, Carbon Dioxide 32.0, Anion Gap 5, BUN 21 H, Creatinine 1.37 H, Estim Creat Clear Calc 68.57, Est GFR (MDRD) Af Amer 67, Est GFR (MDRD) Non-Af 55 L, BUN/Creatinine Ratio 15.3, Glucose 97, Calcium 8.8 Micro: Microbiology 08/18/23 15:05 Mucosa - Nose Respiratory Panel (PCR) - Final 08/18/23 11:50 Nasal Secretion SARS-CoV-2 & FLU Antigen (Rapid) - Final Radiography Diagnostic Testing: Radiology Impression Echocardiogram 08/18/23 16:29 Interpretation Summary The left ventricular ejection fraction is 55 %. The study was technically difficult. Ordering Physician: Faby Meehan Referring Physician: NEHAL MENDOZA Performed By: Julienne Loredo RDCS Physical Exam Const alert, oriented x3, no apparent distress and well nourished; Negative for average body habitus or healthy appearing Constitutional Narrative: Patient on nasal cannula during my evaluation. Anasarca improved. General Appearance: cooperative HEENT normocephalic and head/scalp atraumatic General Ear: hearing grossly impaired Eyes PERRL, EOMs intact bilaterally and conjunctivae normal Eyes Narrative: No scleral icterus Neck no lymphadenopathy and supple Neck Narrative: Trachea midline, no thyroid enlargement Resp normal respiratory effort, no retractions, no use of accessory muscles and No clear to auscultation bilaterally Resp Narrative: Scattered wheezing and crackles bilaterally in all lung forbes with left being greater than right. Slightly improved compared to yesterday Auscultation: rales and wheezes; Negative for rhonchi Cardio regular rate, regular rhythm, S1 normal heart sound, S2 normal heart sound, no murmurs, no rub, no gallops and no clicks GI normal to inspection, nondistended, normoactive bowel sounds Extremity Extremity Narrative: Significant edema noted of the left upper extremity and bilateral lower extremities (2+). Arm improved more than legs Skin no rashes or lesions noted, no wounds, skin turgor normal, no jaundice, no petechiae and no mottling Skin Narrative: Skin is pale Neuro oriented x3 and CN's II-XII intact bilaterally Neuro Narrative: Significantly Limited movement on the left side Speech: speech normal Psych affect normal Psych Narrative: Eye contact is good, patient interacts appropriately Charges/Coding Visit Charges Inpatient E&M: 90365 Subs Hosp L3
--- NOTE | 2023-08-20 12:32 | ST.MBS ---
Modified Barium Swallow Patient Information Study Date: 08/20/23 Study Time: 10:00 Direct Billable Minutes: 73 Total Minutes procedure & reportin Diagnosis: Acute respiratory failure w/ hypoxia (J96.01), MS (G35) Referring Physician: Luba Tejada Reason for Referral: Objectively assess swallow function, assess risk for aspiration, and determine recommendations for least restrictive diet textures and compensatory strategies to improve safety of swallow. Medical History: Dusty Barney is a 68 M who presented to [facility] ED on with shortness of breath and hypoxia. PMH includes Bladder cancer, COVID-19, Hx of multiple sclerosis, HTN, HLD, PE, recurrent UTI ( SEE EMR for full PMH). Patient has been admitted twice this month. He was admitted on 07/29 for ?COVID-19 and discharged home on 2022 on room air. He was then re-admitted on 08/11/2023 and was here through 08/13/2023 with hypoxia and LUPE. Patient's reported increased weakness and that his oxygen levels have been dropping over time since discharge with his most recent oxygenation status about 83% on room air. Since he continued to worsen, she brought him into the hospital. Patient had intermittent cough. His indicated that he had been coughing some after eating but this is not consistent. She states she has noticed this more with liquids and soups. He has no history of speech therapy evaluations or cookie swallows. Chest x-ray showed bilateral patchy infiltrates and follow-up CT of his chest which demonstrated bilateral infiltrates with air bronchograms worse on the left than the right. He was admitted with hypoxia and made NPO prior to ST consult [employer] recommended MBSS prior to diet advancement to rule out concerns for silent aspiration. Current Diet Ordered: NPO Dentition: WNL Mental Status: WNL Respiratory Status: Oxygenating on 4L/M nasal cannula (15L/min) Penetration-Aspiration Scale Penetration-Aspiration Scale: OBJECTIVE ASSESSMENT OF SWALLOW FUNCTION (QUANTITATIVE ? PER TRIAL): PENETRATION / ASPIRATION SCALE (RUBI): 1 = does not enter airway 2 = enters airway/above vocal folds/ejected 3 = enters airway/above vocal folds/not ejected 4 = enters airway/contacts vocal folds/ejected 5 = enters airway/contacts vocal folds/not ejected 6 = enters airway/below vocal folds/ejected 7 = enters airway/below vocal folds/not ejected despite effort 8 = enters airway/below vocal folds/no effort VIDEOFLOROSCOPIC SCALE SCORE (RUBI): Grade I = aspiration of material that has penetrated into the laryngeal vestibule, intact cough reflex Grade II = aspiration < 10 % of the bolus, intact cough reflex Grade III = aspiration of < 10 % of the bolus, reduced cough reflex or aspiration of > 10 % of the bolus, intact cough reflex Grade IV = aspiration of > 10 % of the bolus, reduced cough reflex Penetration-Aspiration Scale Score Thin Liquid via teaspoon: Result: 1= does not enter airway Thin Liquid via teaspoon Trial 2: Result: 1= does not enter airway Thin liquid via large single sip from cup: Result: 3= enters airways/above vocal folds/not ejected (trace) [place] thick liquid via small sip from cup: Result: 2= enter airway/above vocal folds/ejected Pudding via teaspoon: Result: 1= does not enter airway Cookie: Result: 1= does not enter airway Thin liquid via sequential sips from straw: Result: 3= enters airways/above vocal folds/not ejected (trace) Thin Liquid via single sip from straw: Result: 2= enter airway/above vocal folds/ejected Oral Phase Labial Seal: No Labial Escape Tongue Control During Bolus Hold: Posterior escape of greater than half of bolus Bolus Preparation/Mastication: Timely and efficient chewing and mashing Bolus Transport/Lingual Motion: Delayed initiation of tongue motion Oral Residue: Trace residue lining oral structures Pharyngeal Phase Initiation of Pharyngeal Swallow: Bolus head in pyriforms Soft Palate Elevation: No bolus between soft palate and pharyngeal wall Laryngeal Elevation: Partial superior movement thyroid cart/partial apprx aryt-epig petiole Anterior Hyoid Excursion: Partial anterior movement Epiglottic Movement: Complete inversion Laryngeal Vestibule Closure at Height of Swallow: Incomplete; narrow column of air/contrast in laryngeal vestibule Pharyngeal Stripping Wave: Present - complete Pharyngoesophageal Segment Opening: Parital distension and partial duration; parital obstruction of flow Tongue Base Retraction: Narrow column of contrast between tongue base & post. pharyngeal wall Pharyngeal Residue: Collection of residue within or on pharyngeal structures Diagnosis/Impression Diagnosis: Mild oropharyngeal phase dysphagia (R13.12) Impression: The oral phase is primarily marked by... -Decreased bolus control with >1/2 of the bolus spilling posteriorly to the pyriforms prior to swallow onset observed with sequential sips of thin liquids. -Mildly delayed tongue motion for A-P transport. The pharyngeal phase is primarily marked by... -Mildly decreased airway closure during the swallow due to mildly decreased anterior hyoid excursion and laryngeal elevation. -Mildly decreased tongue base retraction and mildly decreased UES opening/duration with resulting mild pharyngeal residues after the swallow. -Consistent laryngeal penetration across thin and nectar thick liquid consistencies consumed via cup and straw. Trace amounts of thin liquid trials by large cup sip and sequential straw sips did not reliably eject from the laryngeal vestibule after the swallow. No aspiration was observed during the study. Recommendations Diet: Regular Textures and Thin Liquids Compensatory Strategies: Small Bites, Small Sips, Slow Rate (Sips one at a time), Sitting upright and Remain sitting upright for 30 minutes after PO intake Recommend Repeat Modified Barium Swallow: TBD Need for Skilled Speech Therapy Services: Yes Comment: Will recommend the patient for dysphagia therapy to address mild deficits in oropharyngeal swallow function. Will recommend the patient for oropharyngeal strengthening to improve hyoid excursion, laryngeal elevation, tongue base retraction, and duration of UES opening (CTABrian, Radha Soto). Education Completed: 1. Described result of evaluation. and 2. Pt understands evaluation & agrees with goals and treatment plan. Status Active ST Patient: Active Contact Information [facility] Speech Therapy:: Irma Menjivar M.A. [facility]-[employer] Speech-Language Pathologist [facility] [address] [place] [address] [email or web address] [phone]
[2023-08-20] MEDS: Furosemide 40 MG/4 ML Vial IV ×2 (13:30→20:30)
[2023-08-20] MEDS: Potassium Chloride Oral Tablet 20 MEQ 60 MEQ PO (13:32)
[2023-08-20] MEDS: 0.9% Saline Lock 10 ML Syringe IV (20:30)
[2023-08-20] MEDS: Tamsulosin HCl 0.4 MG Capsule 0.400000000000000022 MG PO (20:43)
[2023-08-20] MEDS: Atorvastatin Calcium 10 MG Tablet PO (20:43)
[2023-08-20] MEDS: DULoxetine Hcl 60 MG Capsule PO (20:43)
[2023-08-21] VITALS (11 sets, daily range): BP systolic 115–122; BP diastolic 62–81; PULSE 72–90; RESP 12–45; TEMP 36.4–36.8; O2SAT 93–98
[2023-08-21] MEDS: Piperacil/Tazobactam 3.375 GM in 0.9% Normal Saline (50mL MB+) 50 ML IV (05:22)
[2023-08-21 07:32] LABS: Absolute Lymphocyte Count 1.04 X10^3/uL (0.83-4.51); Absolute Neutrophil Count 3.1 X10^3/uL (2.0-7.7); Basophil# 0.02 X10^3/uL; Basophil% 0.3 % (0-1); Eosinophil# 0.36 X10^3/uL; Eosinophils% 6.3 % (0-5); Hematocrit 39.1 % (40-54); Hemoglobin 12.2 g/dL (13.0-16.5); Lymphocyte # 1.04 X10^3/ul (0.83-4.51); Lymphocyte % 18.2 % (19-41); Mean Corp Hgb Conc 31.2 g/dL (32-36); Mean Corpuscular Hgb 26.8 pg (27.0-32.0); Mean Corpuscular Volume 85.9 fL (80-94); Monocyte# 1.13 X10^3/uL; Monocyte% 19.8 % (0-10); NRBC Flagged by Analyzer 0 % (0-5); Neutrophil # 3.08 X10^3/uL (2.7-7.7); Neutrophil % 53.8 % (47-70); Platelet Count 288 K/mm3 (150-450); RBC Distribution Width CV 14.6 % (11.6-14.6); RBC Distribution Width SD 46.2 fl (35.1-43.9); Red Blood Count 4.55 M/mm3 (4.6-6.2); White Blood Count 5.7 K/mm3 (4.4-11.0)
[2023-08-21 07:53] LABS: Anion Gap 4 (5-15); BUN 19 mg/dL (7-18); BUN/Creat Ratio 20.2 RATIO (10-20); Calcium,Total 8.5 mg/dL (8.5-10.1); Chloride 105 mmol/L (98-107); Creatinine, Serum 0.94 mg/dL (0.70-1.30); EST Glomerular Filtration Rate 85 mL/min (>60); Est Glom Filt Rate - Afr Amer 103 mL/min (>60); Estimated Creatinine Clearance 99.93 ml/min; Glucose 98 mg/dL (74-106); Potassium 3.7 mmol/L (3.5-5.1); Sodium Level 140 mmol/L (136-145)
--- NOTE | 2023-08-21 08:15 | PN.CC_ITS ---
Assessment & Plan Assessment/Plan (1) Acute respiratory failure with hypoxia: (2) Hx of multiple sclerosis: (3) Bilateral pulmonary infiltrates: PLAN: Plan RECOMMENDATIONS: 1. Continue current diuresis 2. Electrolyte supplementation as necessary 3. Discontinue antibiotics 4. Continue NIV 5. Obtain room air ABG prior to discharge 6. Increase activity as tolerated IMPRESSIONS: 1. Acute hypoxic respiratory failure Unclear etiology at this time. Multiple possible etiologies need to be investigated. Patient is up over 11 kg from earlier this month with significant swelling of the left upper extremity and bilateral lower extremities. Patient is on anticoagulation, so DVT would be unlikely. We will treat patient with aggressive diuresis. Patient does appear to be responding to diuretic therapy. Twice daily Lasix dosing appears to be well-tolerated. Echocardiogram was relatively unhelpful secondary to window quality. Patient swallow study shows no silent aspiration. We will discontinue antibiotics. 2. MS/JOSH/hyperlipidemia/BPH/hypertension/history of PE/anxiety/depression Complicates care, management, recovery and prognosis. Patient will be transitioned over to an NIV for JOSH control. Patient has a Vo catheter in place at this time. Patient can remain on anticoagulation from my perspective. Subjective Subjective Patient did okay overnight. Patient states he felt much better last evening than he does this morning. Patient states he feels like he might have been crunched up overnight. Patient denies any epistaxis or sinus congestion. Objective Data Objective Data Vital Signs: Vital Signs Temp Pulse Resp BP Pulse Ox O2 Del Method O2 Flow Rate 36.4 C L 84 20 H 115/81 H 96 Bi-pap 12 08/21/23 03:14 08/21/23 07:21 08/21/23 07:21 08/21/23 03:14 08/21/23 07:21 08/21/23 03:14 08/20/23 20:28 FiO2 60 08/21/23 07:21 Oxygen Flow Rate (L/min) 12 Oxygen Delivery Method Bi-pap Weight: 136.3 kg Body Mass Index (BMI) 34.7 Intake & Output: Intake and Output for Last 24 Hours 08/19/23 08/20/23 08/21/23 23:59 23:59 23:59 Intake Total 150 / 175 878.33 / 878.33 50 / 50 Output Total 500 / 850 1250 / 1250 300 / 300 Balance -350 / -675 -371.67 / -371.67 -250 / -250 Lab / Micro Data Attestation: I reviewed the patient's lab results. 08/21/23 06:10 08/21/23 06:10 Labs: Laboratory Results - last 24 hr 08/21/23 06:10: WBC 5.7, RBC 4.55 L, Hgb 12.2 L, Hct 39.1 L, MCV 85.9, MCH 26.8 L, MCHC 31.2 L, RDW Std Deviation 46.2 H, RDW Coeff of Bravo 14.6, Plt Count 288, MPV 9.0, Immature Gran % (Auto) 1.600 H, Neut % (Auto) 53.8, Lymph % (Auto) 18.2 L, [place] % (Auto) 19.8 H, Eos % (Auto) 6.3 H, Baso % (Auto) 0.3, Absolute Neuts (auto) 3.1, Absolute Lymphs (auto) 1.04, Nucleated RBC % 0, Sodium 140, Potassium 3.7, Chloride 105, Carbon Dioxide 31.0, Anion Gap 4 L, BUN 19 H, Creatinine 0.94, Estim Creat Clear Calc 99.93, Est GFR (MDRD) Af Amer 103, Est GFR (MDRD) Non-Af 85, BUN/Creatinine Ratio 20.2 H, Glucose 98, Calcium 8.5 Micro: Microbiology 08/18/23 15:05 Mucosa - Nose Respiratory Panel (PCR) - Final 08/18/23 11:50 Nasal Secretion SARS-CoV-2 & FLU Antigen (Rapid) - Final Physical Exam Const alert, oriented x3, no apparent distress and well nourished; Negative for average body habitus or healthy appearing Constitutional Narrative: Patient on Airvo during my evaluation. Anasarca improved. General Appearance: cooperative HEENT normocephalic, head/scalp atraumatic and hearing grossly normal bilaterally Eyes PERRL, EOMs intact bilaterally and conjunctivae normal Eyes Narrative: No scleral icterus Neck no lymphadenopathy and supple Neck Narrative: Trachea midline, no thyroid enlargement Resp normal respiratory effort, no retractions, no use of accessory muscles and No clear to auscultation bilaterally Resp Narrative: Scattered wheezing and crackles bilaterally in all lung forbes with left being greater than right. Slightly improved compared to yesterday Auscultation: crackles, rales and wheezes; Negative for rhonchi Cardio regular rate, regular rhythm, S1 normal heart sound, S2 normal heart sound, no murmurs, no rub, no gallops and no clicks GI normal to inspection, nondistended, normoactive bowel sounds Extremity Extremity Narrative: Significant edema noted of bilateral lower extremities (3+). Arm edema has almost resolved Skin no rashes or lesions noted, no wounds, skin turgor normal, no jaundice, no petechiae and no mottling Skin Narrative: Skin is pale Neuro oriented x3 and CN's II-XII intact bilaterally Neuro Narrative: Significantly Limited movement on the left side Speech: speech normal Psych affect normal Psych Narrative: Eye contact is good, patient interacts appropriately Charges/Coding Visit Charges Inpatient E&M: 11345 Subs Hosp L3
--- NOTE | 2023-08-21 08:50 | PCM.PN.HOSP ---
Reason for Visit Reason for Visit: Diagnoses Multiple sclerosis (08/18/23) Acute respiratory failure with hypoxia (08/18/23) Atelectasis (08/18/23) Constipation, unspecified (08/18/23) Other nonspecific abnormal finding of lung field (08/18/23) Subjective Subjective Patient somewhat tired today after napping this afternoon, saturating very well on Airvo this a.m., arms are improving from a swelling standpoint, legs do still have edema Objective Data Objective Data Vital Signs: Vital Signs Temp Pulse Resp BP Pulse Ox O2 Del Method O2 Flow Rate 97.5 F L 84 20 H 115/81 H 96 Bi-pap 12 08/21/23 03:14 08/21/23 07:21 08/21/23 07:21 08/21/23 03:14 08/21/23 07:21 08/21/23 03:14 08/20/23 20:28 FiO2 60 08/21/23 07:21 Oxygen Flow Rate (L/min) 12 Oxygen Delivery Method Bi-pap Weight: 136.3 kg Body Mass Index (BMI) 34.7 Intake & Output: Intake and Output for Last 24 Hours 08/19/23 08/20/23 08/21/23 23:59 23:59 23:59 Intake Total 150 / 175 878.33 / 878.33 50 / 50 Output Total 500 / 850 1250 / 1250 300 / 300 Balance -350 / -675 -371.67 / -371.67 -250 / -250 Lab / Micro Data 08/21/23 06:10 08/21/23 06:10 Labs: Laboratory Results - last 24 hr 08/21/23 06:10: WBC 5.7, RBC 4.55 L, Hgb 12.2 L, Hct 39.1 L, MCV 85.9, MCH 26.8 L, MCHC 31.2 L, RDW Std Deviation 46.2 H, RDW Coeff of Bravo 14.6, Plt Count 288, MPV 9.0, Immature Gran % (Auto) 1.600 H, Neut % (Auto) 53.8, Lymph % (Auto) 18.2 L, [place] % (Auto) 19.8 H, Eos % (Auto) 6.3 H, Baso % (Auto) 0.3, Absolute Neuts (auto) 3.1, Absolute Lymphs (auto) 1.04, Nucleated RBC % 0, Sodium 140, Potassium 3.7, Chloride 105, Carbon Dioxide 31.0, Anion Gap 4 L, BUN 19 H, Creatinine 0.94, Estim Creat Clear Calc 99.93, Est GFR (MDRD) Af Amer 103, Est GFR (MDRD) Non-Af 85, BUN/Creatinine Ratio 20.2 H, Glucose 98, Calcium 8.5 Micro: Microbiology 08/18/23 15:05 Mucosa - Nose Respiratory Panel (PCR) - Final 08/18/23 11:50 Nasal Secretion SARS-CoV-2 & FLU Antigen (Rapid) - Final Physical Exam Narrative General: Alert, oriented HEENT: Atraumatic, normocephalic Eyes: Anicteric, normal conjunctiva, extraocular movements grossly intact Neck: Supple Respiratory: Diminished bilaterally with decreased wheezes, improving respiratory effort Cardiovascular: Regular rate GI: Soft, nontender, nondistended Extremities: 2-3+ lower extremity edema Musculoskeletal: Moving around in bed, does not walk Neuro: Baseline deficits Skin: No rashes appreciated Psych: Cooperative Assessment & Plan Assessment/Plan (1) Bilateral pulmonary infiltrates: (2) Hx of multiple sclerosis: (3) Atelectasis: (4) Acute respiratory failure with hypoxia: (5) Constipation: PLAN: Plan Acute hypoxic respiratory failure -Etiology is currently unclear however possible aspiration versus pneumonitis versus infectious process versus heart failure -Patient with tachypnea and marked hypoxia requiring 15 L on a nonrebreather at the time of admission -Chest x-ray showed worsening infiltrates and CT is consistent with this -Check respiratory viral panel -COVID-19 is negative -Speech therapy consult as I am concerned that there may be some component of aspiration -BNP is pending -Check echocardiogram -Last 1 done in 2019 showed an EF of 65% and stage I diastolic dysfunction with trivial tricuspid valve insufficiency and a right ventricular systolic pressure of 26 mmHg -Zosyn initiated in the emergency department and will continue -Check MRSA PCR and if positive we will add vancomycin -Check procalcitonin -BNP is currently pending however machine is down and we will have to await results -BiPAP nocturnally and as needed at -Pulmonary medicine consulted-discussed with Dr. Ni -08/19: Was on BiPAP overnight which he wears, this a.m. patient is on Airvo, pulm consult, continue Zosyn, urine antigens negative, respiratory panel and COVID-negative, suspect a large component of fluid overload. Patient being aggressively diuresed, echocardiogram with EF of 55% but technically difficult study, I's and O's, daily weights -08/20: Lasix decreased to twice daily, potassium being replaced, presently on Zosyn, continue to wean O2 as tolerated -08/21: Improving and kidney function improved, antibiotics discontinued, continuing IV Lasix twice daily, patient napped on Airvo earlier and was slightly drowsy and is going to take another nap, asked for patient be put back on his AVAPS settings during his nap to avoid retaining CO2, if any mental status changes low threshold to get ABG Possible dysphagia -N.p.o. for now -Gentle hydration for now -Speech therapy consult -Okay for meds with applesauce until evaluated by speech therapy -08/19: Speech consult, patient for cookie swallow hopefully tomorrow once he is able to be weaned down on Airvo -08/20: Plan for cookie swallow today -08/21: Patient okay for regular diet with small sips 1 at a time and sit upright for food and drink CKDIIIb -Creatinine 1.24 on arrival, decreased slightly yesterday but increased 1.37 today, Lasix scaled back to twice daily, continue to monitor daily weights and I's and O's -08/21: Improved today with decrease Lasix dose Lower extremity edema - states that this has worsened rate recently and she is restarted his HCTZ -We will continue HCTZ for now but may need to transition to Lasix depending on echocardiogram and BNP -I am not totally convinced that his respiratory distress is related to pulmonary edema at this time however -08/19: BNP 97.2, echo with EF 55% but technically difficult study and unable to further assess, given clinical picture patient being aggressively diuresed -08/20: Lasix decreased to twice daily today Acute on chronic constipation -Patient has not had a bowel movement about 5 days -We will schedule a rectal suppository today and then leave as needed per patient's discretion as he does have trouble with diarrhea if he gets too much stool softener -Monitor clinically -08/19: Monitor and adjust bowel regimen as needed Multiple sclerosis -Severe chronic left-sided weakness -PT/OT consultation -Hold home MS medication -08/19: PT/OT JOSH/chronic hypercapnia related to MS -Continue nocturnal BiPAP at / -May need AVAPS depending on pulmonary medicine input -08/19: BiPAP nightly which will be changed to AVAPS, pulm on board -08/21: Room air ABG before discharge Hyperlipidemia -continue simvastatin BPH -Continue Flomax GERD -Continue Protonix Hypertension -Continue home lisinopril -Continue home carvedilol -08/19: BP 96/68 this a.m., will hold home lisinopril, continue home carvedilol -08/20: BP remains somewhat low, will scale back on carvedilol History of paroxysmal atrial fibrillation -Currently in sinus rhythm -Continue home apixaban -Continue home carvedilol -08/19: Continue carvedilol and Eliquis History of saddle PE/DVT -Continue home apixaban History of bladder cancer status post resection and chemotherapy -Stable Anxiety/depression -Continue home duloxetine DVT prophylaxis -Home apixaban CODE STATUS -Full code is verified prior to admission Time spent in the patient's overall evaluation,decision-making process, review of diagnostic data, adjustment of management, discussion with other providers, nursing nursing and ancillary staff involved in patient's care documentation, 40 minutes Charges/Coding Visit Charges Inpatient E&M: 10941 [facility] Hosp L2
[2023-08-21] MEDS: Pantoprazole Sodium 40 MG Tablet PO (09:03)
[2023-08-21] MEDS: APIXABAN 5 MG TABLET PO ×2 (09:03→21:30)
[2023-08-21] MEDS: guaiFENesin 1,200 MG Tablet 1200 MG PO ×2 (09:04→21:30)
[2023-08-21] MEDS: Multivitamins,Therapeutic Tablet 1 TABLET PO (09:04)
[2023-08-21] MEDS: Vitamin E 400 UNITS Capsule PO (09:04)
[2023-08-21] MEDS: Carvedilol 6.25 MG Tablet PO ×2 (09:04→17:28)
[2023-08-21] MEDS: Potassium Chloride Oral Tablet 10 MEQ PO ×2 (09:04→21:30)
[2023-08-21] MEDS: Sodium Bicarbonate 650 MG Tablet PO ×2 (09:04→21:30)
[2023-08-21] MEDS: Furosemide 40 MG/4 ML Vial IV ×2 (09:05→17:27)
[2023-08-21] MEDS: Cholecalciferol (VIT D3) 25 MCG TABLET (1,000 UNITS) 125 MCG PO (09:05)
[2023-08-21] MEDS: 0.9% Saline Lock 10 ML Syringe IV ×2 (09:06→17:27)
[2023-08-21] MEDS: Sodium Chloride 0.65% 1 SPRAY SPRAY.BTL 2 SPRAY NASAL (10:46)
[2023-08-21] MEDS: Flu Vacc QS2023-24(65YR UP)/PF 240 MCG/0.7 ML Syringe IM (10:51)
[2023-08-21] MEDS: Atorvastatin Calcium 10 MG Tablet PO (21:30)
[2023-08-21] MEDS: DULoxetine Hcl 60 MG Capsule PO (21:30)
[2023-08-21] MEDS: Tamsulosin HCl 0.4 MG Capsule 0.400000000000000022 MG PO (21:30)
[2023-08-22] VITALS (9 sets, daily range): BP systolic 104–132; BP diastolic 71–77; PULSE 75–91; RESP 12–22; TEMP 36.2–36.7; O2SAT 92–98; BMI 33.2
[2023-08-22 05:06] LABS: M R Staph aureus DNA By PCR Negative (Negative); Probe Check PASS; Specimen Processing Control PASS
[2023-08-22 06:28] LABS: Absolute Lymphocyte Count 1.21 X10^3/uL (0.83-4.51); Absolute Neutrophil Count 2.9 X10^3/uL (2.0-7.7); Basophil# 0.03 X10^3/uL; Basophil% 0.5 % (0-1); Eosinophil# 0.43 X10^3/uL; Eosinophils% 7.7 % (0-5); Hematocrit 38.3 % (40-54); Hemoglobin 11.6 g/dL (13.0-16.5); Lymphocyte # 1.21 X10^3/ul (0.83-4.51); Lymphocyte % 21.6 % (19-41); Mean Corp Hgb Conc 30.3 g/dL (32-36); Mean Corpuscular Hgb 26.3 pg (27.0-32.0); Mean Corpuscular Volume 86.8 fL (80-94); Mean Platelet Vol. 9.1 fl (6.2-12.0); Monocyte# 0.99 X10^3/uL; Monocyte% 17.7 % (0-10); NRBC Flagged by Analyzer 0 % (0-5); Neutrophil # 2.86 X10^3/uL (2.7-7.7); Neutrophil % 51.1 % (47-70); Platelet Count 348 K/mm3 (150-450); RBC Distribution Width CV 14.5 % (11.6-14.6); RBC Distribution Width SD 46.5 fl (35.1-43.9); Red Blood Count 4.41 M/mm3 (4.6-6.2); White Blood Count 5.6 K/mm3 (4.4-11.0)
[2023-08-22 06:58] LABS: Anion Gap 4 (5-15); BUN 14 mg/dL (7-18); BUN/Creat Ratio 15.9 RATIO (10-20); Calcium,Total 8.8 mg/dL (8.5-10.1); Chloride 102 mmol/L (98-107); Creatinine, Serum 0.88 mg/dL (0.70-1.30); EST Glomerular Filtration Rate 92 mL/min (>60); Est Glom Filt Rate - Afr Amer 111 mL/min (>60); Estimated Creatinine Clearance 106.75 ml/min; Glucose 104 mg/dL (74-106); Potassium 3.3 mmol/L (3.5-5.1); Sodium Level 139 mmol/L (136-145)
--- NOTE | 2023-08-22 08:04 | PCM.PN.HOSP ---
Reason for Visit Reason for Visit: Diagnoses Multiple sclerosis (08/18/23) Acute respiratory failure with hypoxia (08/18/23) Atelectasis (08/18/23) Constipation, unspecified (08/18/23) Other nonspecific abnormal finding of lung field (08/18/23) Objective Data Objective Data Vital Signs: Vital Signs Temp Pulse Resp BP Pulse Ox O2 Del Method O2 Flow Rate 98.1 F 75 18 116/77 95 Bi-pap 40 08/22/23 03:00 08/22/23 03:00 08/22/23 03:00 08/22/23 03:00 08/22/23 03:23 08/22/23 03:00 08/21/23 22:00 FiO2 40 08/22/23 03:23 Oxygen Flow Rate (L/min) 40 Oxygen Delivery Method Bi-pap Weight: 130.4 kg Body Mass Index (BMI) 33.2 Intake & Output: Intake and Output for Last 24 Hours 08/20/23 08/21/23 08/22/23 23:59 23:59 23:59 Intake Total 878.33 / 878.33 98.33 / 98.33 Output Total 1250 / 1250 1500 / 1500 100 / 100 Balance -371.67 / -371.67 -1401.67 / -1401.67 -100 / -100 Lab / Micro Data 08/22/23 05:10 08/22/23 05:10 Labs: Laboratory Results - last 24 hr 08/22/23 03:00: MRSA (PCR) Negative 08/22/23 05:10: WBC 5.6, RBC 4.41 L, Hgb 11.6 L, Hct 38.3 L, MCV 86.8, MCH 26.3 L, MCHC 30.3 L, RDW Std Deviation 46.5 H, RDW Coeff of Bravo 14.5, Plt Count 348, MPV 9.1, Immature Gran % (Auto) 1.400 H, Neut % (Auto) 51.1, Lymph % (Auto) 21.6, [place] % (Auto) 17.7 H, Eos % (Auto) 7.7 H, Baso % (Auto) 0.5, Absolute Neuts (auto) 2.9, Absolute Lymphs (auto) 1.21, Nucleated RBC % 0, Sodium 139, Potassium 3.3 L, Chloride 102, Carbon Dioxide 33.0 H, Anion Gap 4 L, BUN 14, Creatinine 0.88, Estim Creat Clear Calc 106.75, Est GFR (MDRD) Af Amer 111, Est GFR (MDRD) Non-Af 92, BUN/Creatinine Ratio 15.9, Glucose 104, Calcium 8.8 Micro: Microbiology 08/18/23 15:05 Mucosa - Nose Respiratory Panel (PCR) - Final 08/18/23 11:50 Nasal Secretion SARS-CoV-2 & FLU Antigen (Rapid) - Final Assessment & Plan Assessment/Plan (1) Bilateral pulmonary infiltrates: (2) Hx of multiple sclerosis: (3) Atelectasis: (4) Acute respiratory failure with hypoxia: (5) Constipation: PLAN: Plan Acute hypoxic respiratory failure -Etiology is currently unclear however possible aspiration versus pneumonitis versus infectious process versus heart failure -Patient with tachypnea and marked hypoxia requiring 15 L on a nonrebreather at the time of admission -Chest x-ray showed worsening infiltrates and CT is consistent with this -Check respiratory viral panel -COVID-19 is negative -Speech therapy consult as I am concerned that there may be some component of aspiration -BNP is pending -Check echocardiogram -Last 1 done in 2019 showed an EF of 65% and stage I diastolic dysfunction with trivial tricuspid valve insufficiency and a right ventricular systolic pressure of 26 mmHg -Zosyn initiated in the emergency department and will continue -Check MRSA PCR and if positive we will add vancomycin -Check procalcitonin -BNP is currently pending however machine is down and we will have to await results -BiPAP nocturnally and as needed at -Pulmonary medicine consulted-discussed with Dr. Ni -08/19: Was on BiPAP overnight which he wears, this a.m. patient is on Airvo, pulm consult, continue Zosyn, urine antigens negative, respiratory panel and COVID-negative, suspect a large component of fluid overload. Patient being aggressively diuresed, echocardiogram with EF of 55% but technically difficult study, I's and O's, daily weights -08/20: Lasix decreased to twice daily, potassium being replaced, presently on Zosyn, continue to wean O2 as tolerated -08/21: Improving and kidney function improved, antibiotics discontinued, continuing IV Lasix twice daily, patient napped on Airvo earlier and was slightly drowsy and is going to take another nap, asked for patient be put back on his AVAPS settings during his nap to avoid retaining CO2, if any mental status changes low threshold to get ABG -08/22: Was alternating between Airvo and AVAPS yesterday for the most part, will assess progress respiratory status throughout the day, remains on IV diuresis, Diuresis increased today Possible dysphagia -N.p.o. for now -Gentle hydration for now -Speech therapy consult -Okay for meds with applesauce until evaluated by speech therapy -08/19: Speech consult, patient for cookie swallow hopefully tomorrow once he is able to be weaned down on Airvo -08/20: Plan for cookie swallow today -08/21: Patient okay for regular diet with small sips 1 at a time and sit upright for food and drink CKDIIIb -Creatinine 1.24 on arrival, decreased slightly yesterday but increased 1.37 today, Lasix scaled back to twice daily, continue to monitor daily weights and I's and O's -08/21: Improved today with decrease Lasix dose -08/22: Continues to improve, continue daily weights, I's and O's, Lasix Lower extremity edema - states that this has worsened rate recently and she is restarted his HCTZ -We will continue HCTZ for now but may need to transition to Lasix depending on echocardiogram and BNP -I am not totally convinced that his respiratory distress is related to pulmonary edema at this time however -08/19: BNP 97.2, echo with EF 55% but technically difficult study and unable to further assess, given clinical picture patient being aggressively diuresed -08/20: Lasix decreased to twice daily today -08/22: Lasix dose increased to 60 twice daily Acute on chronic constipation -Patient has not had a bowel movement about 5 days -We will schedule a rectal suppository today and then leave as needed per patient's discretion as he does have trouble with diarrhea if he gets too much stool softener -Monitor clinically -08/19: Monitor and adjust bowel regimen as needed Multiple sclerosis -Severe chronic left-sided weakness -PT/OT consultation -Hold home MS medication -08/19: PT/OT JOSH/chronic hypercapnia related to MS -Continue nocturnal BiPAP at -May need AVAPS depending on pulmonary medicine input -08/19: BiPAP nightly which will be changed to AVAPS, pulm on board -08/21: Room air ABG before discharge Hyperlipidemia -continue simvastatin BPH -Continue Flomax GERD -Continue Protonix Hypertension -Continue home lisinopril -Continue home carvedilol -08/19: BP 96/68 this a.m., will hold home lisinopril, continue home carvedilol -08/20: BP remains somewhat low, will scale back on carvedilol -08/22: BP acceptable, continue present medications History of paroxysmal atrial fibrillation -Currently in sinus rhythm -Continue home apixaban -Continue home carvedilol -08/19: Continue carvedilol and Eliquis History of saddle PE/DVT -Continue home apixaban History of bladder cancer status post resection and chemotherapy -Stable Anxiety/depression -Continue home duloxetine DVT prophylaxis -Home apixaban CODE STATUS -Full code is verified prior to admission Time spent in the patient's overall evaluation,decision-making process, review of diagnostic data, adjustment of management, discussion with other providers, nursing nursing and ancillary staff involved in patient's care documentation, 40 minutes Charges/Coding Visit Charges Inpatient E&M: 21118 Subs Hosp L2
[2023-08-22] MEDS: Potassium Chloride Oral Tablet 20 MEQ 40 MEQ PO (09:44)
[2023-08-22] MEDS: Multivitamins,Therapeutic Tablet 1 TABLET PO (09:44)
[2023-08-22] MEDS: Carvedilol 6.25 MG Tablet PO ×2 (09:44→16:32)
[2023-08-22] MEDS: Pantoprazole Sodium 40 MG Tablet PO (09:45)
[2023-08-22] MEDS: APIXABAN 5 MG TABLET PO ×2 (09:45→21:26)
[2023-08-22] MEDS: Potassium Chloride Oral Tablet 10 MEQ PO ×2 (09:45→21:26)
[2023-08-22] MEDS: guaiFENesin 1,200 MG Tablet 1200 MG PO ×2 (09:45→21:27)
[2023-08-22] MEDS: Cholecalciferol (VIT D3) 25 MCG TABLET (1,000 UNITS) 125 MCG PO (09:46)
[2023-08-22] MEDS: Sodium Bicarbonate 650 MG Tablet PO ×2 (09:46→21:26)
[2023-08-22] MEDS: 0.9% Saline Lock 10 ML Syringe IV ×2 (09:47→18:03)
[2023-08-22] MEDS: Vitamin E 400 UNITS Capsule PO (09:47)
--- NOTE | 2023-08-22 09:48 | PN.CC_ITS ---
Assessment & Plan Assessment/Plan (1) Acute respiratory failure with hypoxia: (2) Hx of multiple sclerosis: (3) Bilateral pulmonary infiltrates: PLAN: Plan RECOMMENDATIONS: 1. Slightly increased current diuresis 2. Electrolyte supplementation as necessary 3. Monitor off antibiotics 4. Continue NIV 5. Possibly obtain a chest x-ray in the next 24 to 48 hours to evaluate r esponse 6. Increase activity as tolerated IMPRESSIONS: 1. Acute hypoxic respiratory failure Unclear etiology at this time. Multiple possible etiologies need to be investigated. Patient is up over 11 kg from earlier this month with significant swelling of the left upper extremity and bilateral lower extremities. Patient is on anticoagulation, so DVT would be unlikely. We will treat patient with aggressive diuresis. Patient does appear to be responding to diuretic therapy, but this is slow. We will increase twice daily Lasix dosing as patient appears to tolerate this better than every 8 hour dosing. Goal diuresis will be -2 to 3 L/day. Echocardiogram was relatively unhelpful secondary to window quality. Patient swallow study shows no silent aspiration. We will monitor off antibiotics. 2. MS/JOSH/hyperlipidemia/BPH/hypertension/history of PE/anxiety/depression Complicates care, management, recovery and prognosis. Patient will be transitioned over to an NIV for JOSH control. Patient has a Vo catheter in place at this time. Patient can remain on anticoagulation from my perspective. Subjective Subjective Patient seen earlier this morning when he was still on BiPAP. Patient felt that the night went much better. Patient subjectively felt that he was doing well with his breathing, but had not been off his BiPAP yet this morning. Objective Data Objective Data Vital Signs: Vital Signs Temp Pulse Resp BP Pulse Ox O2 Del Method O2 Flow Rate 36.4 C L 91 18 104/71 94 Airvo 40 08/22/23 09:28 08/22/23 09:28 08/22/23 09:28 08/22/23 09:28 08/22/23 09:28 08/22/23 09:30 08/22/23 09:30 FiO2 45 08/22/23 09:30 Oxygen Flow Rate (L/min) 40 Oxygen Delivery Method Airvo Weight: 130.4 kg Body Mass Index (BMI) 33.2 Intake & Output: Intake and Output for Last 24 Hours 08/20/23 08/21/23 08/22/23 23:59 23:59 23:59 Intake Total 878.33 / 878.33 98.33 / 98.33 Output Total 1250 / 1250 1500 / 1500 100 / 100 Balance -371.67 / -371.67 -1401.67 / -1401.67 -100 / -100 Lab / Micro Data Attestation: I reviewed the patient's lab results. 08/22/23 05:10 08/22/23 05:10 Labs: Laboratory Results - last 24 hr 08/22/23 03:00: MRSA (PCR) Negative 08/22/23 05:10: WBC 5.6, RBC 4.41 L, Hgb 11.6 L, Hct 38.3 L, MCV 86.8, MCH 26.3 L, MCHC 30.3 L, RDW Std Deviation 46.5 H, RDW Coeff of Bravo 14.5, Plt Count 348, MPV 9.1, Immature Gran % (Auto) 1.400 H, Neut % (Auto) 51.1, Lymph % (Auto) 21 .6, [place] % (Auto) 17.7 H, Eos % (Auto) 7.7 H, Baso % (Auto) 0.5, Absolute Neuts (auto) 2.9, Absolute Lymphs (auto) 1.21, Nucleated RBC % 0, Sodium 139, Potassium 3.3 L, Chloride 102, Carbon Dioxide 33.0 H, Anion Gap 4 L, BUN 14, Creatinine 0.88, Estim Creat Clear Calc 106.75, Est GFR (MDRD) Af Amer 111, Est GFR (MDRD) Non-Af 92, BUN/Creatinine Ratio 15.9, Glucose 104, Calcium 8.8 Micro: Microbiology 08/18/23 15:05 Mucosa - Nose Respiratory Panel (PCR) - Final 08/18/23 11:50 Nasal Secretion SARS-CoV-2 & FLU Antigen (Rapid) - Final Physical Exam Const alert, oriented x3, no apparent distress and well nourished; Negative for average body habitus or healthy appearing Constitutional Narrative: Patient on BiPAP during my evaluation. Anasarca improved. Still with significant lower extremity edema General Appearance: cooperative HEENT normocephalic, head/scalp atraumatic and hearing grossly normal bilaterally Eyes PERRL, EOMs intact bilaterally and conjunctivae normal Eyes Narrative: No scleral icterus Neck no lymphadenopathy and supple Neck Narrative: Trachea midline, no thyroid enlargement Resp normal respiratory effort, no retractions, no use of accessory muscles and No clear to auscultation bilaterally Resp Narrative: Scattered wheezing and crackles bilaterally in all lung forbes with left being greater than right. Slightly improved compared to yesterday Auscultation: rales and wheezes; Negative for rhonchi Cardio regular rate, regular rhythm, S1 normal heart sound, S2 normal heart sound, no murmurs, no rub, no gallops and no clicks GI normal to inspection, nondistended, normoactive bowel sounds Extremity Extremity Narrative: Significant edema noted of bilateral lower extremities (3+). Arm edema has resolved Skin no rashes or lesions noted, no wounds, skin turgor normal, no jaundice, no petechiae and no mottling Skin Narrative: Skin is pale Neuro oriented x3 and CN's II-XII intact bilaterally Neuro Narrative: Significantly Limited movement on the left side. Decrease sensation of bilateral lower extremities Speech: speech normal Psych affect normal Psych Narrative: Eye contact is good, patient interacts appropriately Charges/Coding Visit Charges Inpatient E&M: 88296 Subs Hosp L3
[2023-08-22] MEDS: Furosemide 100 MG/10 ML Vial 60 MG IV ×2 (09:59→18:03)
[2023-08-22] MEDS: DULoxetine Hcl 60 MG Capsule PO (21:26)
[2023-08-22] MEDS: Atorvastatin Calcium 10 MG Tablet PO (21:26)
[2023-08-22] MEDS: Tamsulosin HCl 0.4 MG Capsule 0.400000000000000022 MG PO (21:26)
[2023-08-23] VITALS (15 sets, daily range): BP systolic 99–134; BP diastolic 72–81; PULSE 84–131; RESP 12–18; TEMP 36.2–37.1; O2SAT 92–97; BMI 34.0
[2023-08-23] MEDS: Senna/Docusate Sodium 1 Tablet 2 TABLET PO (05:13)
[2023-08-23 06:18] LABS: Absolute Lymphocyte Count 1.13 X10^3/uL (0.83-4.51); Basophil# 0.05 X10^3/uL; Basophil% 0.9 % (0-1); Eosinophil# 0.42 X10^3/uL; Eosinophils% 7.3 % (0-5); Hematocrit 39.5 % (40-54); Hemoglobin 12.3 g/dL (13.0-16.5); Lymphocyte # 1.13 X10^3/ul (0.83-4.51); Lymphocyte % 19.6 % (19-41); Mean Corp Hgb Conc 31.1 g/dL (32-36); Mean Corpuscular Hgb 26.5 pg (27.0-32.0); Mean Corpuscular Volume 85.1 fL (80-94); Mean Platelet Vol. 8.9 fl (6.2-12.0); Monocyte# 1.03 X10^3/uL; Monocyte% 17.8 % (0-10); NRBC Flagged by Analyzer 0 % (0-5); Neutrophil # 2.99 X10^3/uL (2.7-7.7); Neutrophil % 51.6 % (47-70); Platelet Count 372 K/mm3 (150-450); RBC Distribution Width CV 14.4 % (11.6-14.6); RBC Distribution Width SD 44.5 fl (35.1-43.9); Red Blood Count 4.64 M/mm3 (4.6-6.2); White Blood Count 5.8 K/mm3 (4.4-11.0)
[2023-08-23 06:47] LABS: Anion Gap 2 (5-15); BUN 15 mg/dL (7-18); BUN/Creat Ratio 18.5 RATIO (10-20); Chloride 103 mmol/L (98-107); Creatinine, Serum 0.81 mg/dL (0.70-1.30); EST Glomerular Filtration Rate 101 mL/min (>60); Est Glom Filt Rate - Afr Amer 122 mL/min (>60); Estimated Creatinine Clearance 115.97 ml/min; Glucose 116 mg/dL (74-106); Potassium 3.4 mmol/L (3.5-5.1); Sodium Level 138 mmol/L (136-145)
--- NOTE | 2023-08-23 08:16 | PN.HOSP_ITS ---
Reason for Visit Reason for Visit: Diagnoses Multiple sclerosis (08/18/23) Acute respiratory failure with hypoxia (08/18/23) Atelectasis (08/18/23) Constipation, unspecified (08/18/23) Other nonspecific abnormal finding of lung field (08/18/23) Subjective Subjective Feeling slightly better today, legs slightly less edematous Objective Data Objective Data Vital Signs: Vital Signs Temp Pulse Resp BP Pulse Ox O2 Del Method O2 Flow Rate 97.4 F L 84 18 99/76 93 High Flow 9 08/23/23 03:47 08/23/23 03:47 08/23/23 03:47 08/23/23 03:47 08/23/23 07:17 08/23/23 07:17 08/23/23 07:17 FiO2 35 08/23/23 01:12 Oxygen Flow Rate (L/min) 9 Oxygen Delivery Method High Flow Weight: 133.7 kg Body Mass Index (BMI) 34.0 Intake & Output: Intake and Output for Last 24 Hours 08/21/23 08/22/23 08/23/23 23:59 23:59 23:59 Intake Total 98.33 / 98.33 Output Total 1500 / 1500 1900 / 1900 800 / 800 Balance -1401.67 / -1401.67 -1900 / -1900 -800 / -800 Lab / Micro Data 08/23/23 06:00 08/23/23 06:00 Labs: Laboratory Results - last 24 hr 08/23/23 06:00: WBC 5.8, RBC 4.64, Hgb 12.3 L, Hct 39.5 L, MCV 85.1, MCH 26.5 L, MCHC 31.1 L, RDW Std Deviation 44.5 H, RDW Coeff of Bravo 14.4, Plt Count 372, MPV 8.9, Immature Gran % (Auto) 2.800 H, Neut % (Auto) 51.6, Lymph % (Auto) 19.6, [place] % (Auto) 17.8 H, Eos % (Auto) 7.3 H, Baso % (Auto) 0.9, Absolute Neuts (auto) 3.0, Absolute Lymphs (auto) 1.13, Nucleated RBC % 0, Sodium 138, Potassium 3.4 L, Chloride 103, Carbon Dioxide 33.0 H, Anion Gap 2 L, BUN 15, Creatinine 0.81, Estim Creat Clear Calc 115.97, Est GFR (MDRD) Af Amer 122, Est GFR (MDRD) Non-Af 101, BUN/Creatinine Ratio 18.5, Glucose 116 H, Calcium 9.0 Micro: Microbiology 08/18/23 15:05 Mucosa - Nose Respiratory Panel (PCR) - Final 08/18/23 11:50 Nasal Secretion SARS-CoV-2 & FLU Antigen (Rapid) - Final Physical Exam Narrative General: Alert, oriented HEENT: Atraumatic, normocephalic Eyes: Anicteric, normal conjunctiva, extraocular movements grossly intact Neck: Supple Respiratory: Diminished bilaterally, no wheezes today, improving respiratory effort Cardiovascular: Regular rate GI: Soft, nontender, nondistended Extremities: 2-3+ lower extremity edema with slight wrinkles developing Musculoskeletal: Moving around in bed, does not walk Neuro: Baseline deficits Skin: No rashes appreciated Psych: Cooperative Assessment & Plan Assessment/Plan (1) Bilateral pulmonary infiltrates: (2) Hx of multiple sclerosis: (3) Atelectasis: (4) Acute respiratory failure with hypoxia: (5) Constipation: PLAN: Plan Acute hypoxic respiratory failure -Etiology is currently unclear however possible aspiration versus pneumonitis versus infectious process versus heart failure -Patient with tachypnea and marked hypoxia requiring 15 L on a nonrebreather at the time of admission -Chest x-ray showed worsening infiltrates and CT is consistent with this -Check respiratory viral panel -COVID-19 is negative -Speech therapy consult as I am concerned that there may be some component of aspiration -BNP is pending -Check echocardiogram -Last 1 done in 2019 showed an EF of 65% and stage I diastolic dysfunction with trivial tricuspid valve insufficiency and a right ventricular systolic pres sure of 26 mmHg -Zosyn initiated in the emergency department and will continue -Check MRSA PCR and if positive we will add vancomycin -Check procalcitonin -BNP is currently pending however machine is down and we will have to await results -BiPAP nocturnally and as needed at -Pulmonary medicine consulted-discussed with Dr. Ni -08/19: Was on BiPAP overnight which he wears, this a.m. patient is on Airvo, pulm consult, continue Zosyn, urine antigens negative, respiratory panel and COVID-negative, suspect a large component of fluid overload. Patient being aggressively diuresed, echocardiogram with EF of 55% but technically difficult study, I's and O's, daily weights -08/20: Lasix decreased to twice daily, potassium being replaced, presently on Zosyn, continue to wean O2 as tolerated -08/21: Improving and kidney function improved, antibiotics discontinued, continuing IV Lasix twice daily, patient napped on Airvo earlier and was slightly drowsy and is going to take another nap, asked for patient be put back on his AVAPS settings during his nap to avoid retaining CO2, if any mental s tatus changes low threshold to get ABG -08/22: Was alternating between Airvo and AVAPS yesterday for the most part, will assess progress respiratory status throughout the day, remains on IV diuresis, D iuresis increased today -08/23: Slowly improving, continue present management Possible dysphagia -N.p.o. for now -Gentle hydration for now -Speech therapy consult -Okay for meds with applesauce until evaluated by speech therapy -08/19: Speech consult, patient for cookie swallow hopefully tomorrow once he is able to be weaned down on Airvo -08/20: Plan for cookie swallow today -08/21: Patient okay for regular diet with small sips 1 at a time and sit upright for food and drink regular diet CKDIIIb -Creatinine 1.24 on arrival, decreased slightly yesterday but increased 1.37 today, Lasix scaled back to twice daily, continue to monitor daily weights and I's and O's -08/21: Improved today with decrease Lasix dose -08/22: Continues to improve, continue daily weights, I's and O's, Lasix Lower extremity edema - states that this has worsened rate recently and she is restarted his HCTZ -We will continue HCTZ for now but may need to transition to Lasix depending on echocardiogram and BNP -I am not totally convinced that his respiratory distress is related to pulmonary edema at this time however -08/19: BNP 97.2, echo with EF 55% but technically difficult study and unable to further assess, given clinical picture patient being aggressively diuresed -08/20: Lasix decreased to twice daily today -08/22: Lasix dose increased to 60 twice daily -08/23: Has slight wrinkles today though still significant edema Acute on chronic constipation -Patient has not had a bowel movement about 5 days -We will schedule a rectal suppository today and then leave as needed per patient's discretion as he does have trouble with diarrhea if he gets too much stool softener -Monitor clinically -08/19: Monitor and adjust bowel regimen as needed Multiple sclerosis -Severe chronic left-sided weakness -PT/OT consultation -Hold home MS medication -08/19: PT/OT JOSH/chronic hypercapnia related to MS -Continue nocturnal BiPAP at -May need AVAPS depending on pulmonary medicine input -08/19: BiPAP nightly which will be changed to AVAPS, pulm on board -08/21: Room air ABG before discharge Hyperlipidemia -continue simvastatin BPH -Continue Flomax GERD -Continue Protonix Hypertension -Continue home lisinopril -Continue home carvedilol -08/19: BP 96/68 this a.m., will hold home lisinopril, continue home carvedilol -08/20: BP remains somewhat low, will scale back on carvedilol -08/22: BP acceptable, continue present medications History of paroxysmal atrial fibrillation -Currently in sinus rhythm -Continue home apixaban -Continue home carvedilol -08/19: Continue carvedilol and Eliquis History of saddle PE/DVT -Continue home apixaban History of bladder cancer status post resection and chemotherapy -Stable Anxiety/depression -Continue home duloxetine DVT prophylaxis -Home apixaban CODE STATUS -Full code is verified prior to admission Time spent in the patient's overall evaluation,decision-making process, review of diagnostic data, adjustment of management, discussion with other providers, nursing nursing and ancillary staff involved in patient's care documentation, 30 minutes Charges/Coding Visit Charges Inpatient E&M: 76180 [facility] Hosp L1
[2023-08-23] MEDS: Vitamin E 400 UNITS Capsule PO (09:36)
[2023-08-23] MEDS: Sodium Bicarbonate 650 MG Tablet PO ×2 (09:36→21:18)
[2023-08-23] MEDS: guaiFENesin 1,200 MG Tablet 1200 MG PO ×2 (09:36→21:18)
[2023-08-23] MEDS: APIXABAN 5 MG TABLET PO ×2 (09:36→21:19)
[2023-08-23] MEDS: Cholecalciferol (VIT D3) 25 MCG TABLET (1,000 UNITS) 125 MCG PO (09:36)
[2023-08-23] MEDS: Pantoprazole Sodium 40 MG Tablet PO (09:36)
[2023-08-23] MEDS: 0.9% Saline Lock 10 ML Syringe IV ×2 (09:37→17:22)
[2023-08-23] MEDS: Furosemide 100 MG/10 ML Vial 60 MG IV ×2 (09:37→17:22)
[2023-08-23] MEDS: Carvedilol 6.25 MG Tablet PO ×2 (09:37→17:22)
[2023-08-23] MEDS: Multivitamins,Therapeutic Tablet 1 TABLET PO (09:37)
[2023-08-23] MEDS: Potassium Chloride Oral Tablet 20 MEQ PO ×2 (09:41→17:22)
--- NOTE | 2023-08-23 09:49 | PN.CC_ITS ---
Assessment & Plan Assessment/Plan (1) Acute respiratory failure with hypoxia: (2) Hx of multiple sclerosis: (3) Bilateral pulmonary infiltrates: PLAN: Plan RECOMMENDATIONS: 1. Continue slightly increased current diuresis 2. Electrolyte supplementation as necessary 3. Monitor off antibiotics 4. Continue NIV 5. Possibly obtain a chest x-ray in the next 24 to 48 hours to evaluate response 6. Increase activity as tolerated IMPRESSIONS: 1. Acute hypoxic respiratory failure Unclear etiology at this time. Multiple possible etiologies need to be investigated. Patient is up over 11 kg from earlier this month with significant swelling of the left upper extremity and bilateral lower extremities. Patient is on anticoagulation, so DVT would be unlikely. We will treat patient with aggressive diuresis. Patient does appear to be responding to diuretic therapy, but this is slow. Patient tolerating twice daily Lasix dosing as patient appears to tolerate this better than every 8 hour dosing. Goal diuresis will be -2 to 3 L/day. Echocardiogram was relatively unhelpful secondary to window quality. Patient swallow study shows no silent aspiration. We will monitor off antibiotics. 2. MS/JOSH/hyperlipidemia/BPH/hypertension/history of PE/anxiety/depression Complicates care, management, recovery and prognosis. Patient will be transitioned over to an NIV for JOSH control. Patient has a Vo catheter in place at this time. Patient can remain on anticoagulation from my perspective. Subjective Subjective Patient subjectively feels better compared to yesterday. Patient has been able to be weaned to 9 L/min. Patient was able to tolerate breakfast. No additional concerns reported. Objective Data Objective Data Vital Signs: Vital Signs Temp Pulse Resp BP Pulse Ox O2 Del Method O2 Flow Rate 36.2 C L 91 18 134/81 H 96 High Flow 9 08/23/23 09:31 08/23/23 09:31 08/23/23 09:31 08/23/23 09:31 08/23/23 09:31 08/23/23 09:31 08/23/23 09:31 FiO2 35 08/23/23 01:12 Oxygen Flow Rate (L/min) 9 Oxygen Delivery Method High Flow Weight: 133.7 kg Body Mass Index (BMI) 34.0 Intake & Output: Intake and Output for Last 24 Hours 08/21/23 08/22/23 08/23/23 23:59 23:59 23:59 Intake Total 98.33 / 98.33 Output Total 1500 / 1500 1900 / 1900 800 / 800 Balance -1401.67 / -1401.67 -1900 / -1900 -800 / -800 Lab / Micro Data Attestation: I reviewed the patient's lab results. 08/23/23 06:00 08/23/23 06:00 Labs: Laboratory Results - last 24 hr 08/23/23 06:00: WBC 5.8, RBC 4.64, Hgb 12.3 L, Hct 39.5 L, MCV 85.1, MCH 26.5 L, MCHC 31.1 L, RDW Std Deviation 44.5 H, RDW Coeff of Bravo 14.4, Plt Count 372, MPV 8.9, Immature Gran % (Auto) 2.800 H, Neut % (Auto) 51.6, Lymph % (Auto) 19.6, [place] % (Auto) 17.8 H, Eos % (Auto) 7.3 H, Baso % (Auto) 0.9, Absolute Neuts (auto) 3.0, Absolute Lymphs (auto) 1.13, Nucleated RBC % 0, Sodium 138, Potassium 3.4 L, Chloride 103, Carbon Dioxide 33.0 H, Anion Gap 2 L, BUN 15, Creatinine 0.81, Estim Creat Clear Calc 115.97, Est GFR (MDRD) Af Amer 122, Est GFR (MDRD) Non-Af 101, BUN/Creatinine Ratio 18.5, Glucose 116 H, Calcium 9.0 Micro: Microbiology 08/18/23 15:05 Mucosa - Nose Respiratory Panel (PCR) - Final 08/18/23 11:50 Nasal Secretion SARS-CoV-2 & FLU Antigen (Rapid) - Final Physical Exam Const alert, oriented x3, no apparent distress and well nourished; Negative for average body habitus or healthy appearing Constitutional Narrative: Patient on nasal cannula during my evaluation. Anasarca improved. Starting to develop wrinkles in lower extremities, feet still very edematous General Appearance: cooperative HEENT normocephalic, head/scalp atraumatic and hearing grossly normal bilaterally Eyes PERRL, EOMs intact bilaterally and conjunctivae normal Eyes Narrative: No scleral icterus Neck no lymphadenopathy and supple Neck Narrative: Trachea midline, no thyroid enlargement Resp normal respiratory effort, no retractions, no use of accessory muscles and No clear to auscultation bilaterally Resp Narrative: Scattered wheezing and crackles bilaterally in all lung forbes with left being greater than right. Slightly improved compared to yesterday Auscultation: rales and wheezes; Negative for rhonchi Cardio regular rate, regular rhythm, S1 normal heart sound, S2 normal heart sound, no murmurs, no rub, no gallops and no clicks GI normal to inspection, nondistended, normoactive bowel sounds Extremity Extremity Narrative: Significant edema noted of bilateral lower extremities (2+). Arm edema has resolved Skin no rashes or lesions noted, no wounds, skin turgor normal, no jaundice, no daniel chiae and no mottling Skin Narrative: Skin is pale Neuro oriented x3 and CN's II-XII intact bilaterally Neuro Narrative: Significantly Limited movement on the left side. Decrease sensation of bilateral lower extremities Speech: speech normal Psych affect normal Psych Narrative: Eye contact is good, patient interacts appropriately Charges/Coding Visit Charges Inpatient E&M: 42507 Subs Hosp L2
[2023-08-23] MEDS: Tamsulosin HCl 0.4 MG Capsule 0.400000000000000022 MG PO (21:18)
[2023-08-23] MEDS: Atorvastatin Calcium 10 MG Tablet PO (21:19)
[2023-08-23] MEDS: DULoxetine Hcl 60 MG Capsule PO (21:19)
[2023-08-23] MEDS: Metoprolol Tartrate 5 MG/5 ML Vial IV (23:54)
[2023-08-24] VITALS (11 sets, daily range): BP systolic 105–118; BP diastolic 67–89; PULSE 85–126; RESP 12–18; TEMP 36.1–37; O2SAT 94–99; BMI 34.3
[2023-08-24] MEDS: Metoprolol Tartrate 5 MG/5 ML Vial IV (00:54)
[2023-08-24 06:56] LABS: Anion Gap 5 (5-15); BUN 19 mg/dL (7-18); BUN/Creat Ratio 18.8 RATIO (10-20); Calcium,Total 9.4 mg/dL (8.5-10.1); Chloride 105 mmol/L (98-107); Creatinine, Serum 1.01 mg/dL (0.70-1.30); EST Glomerular Filtration Rate 79 mL/min (>60); Est Glom Filt Rate - Afr Amer 95 mL/min (>60); Estimated Creatinine Clearance 93.01 ml/min; Glucose 119 mg/dL (74-106); Sodium Level 140 mmol/L (136-145)
[2023-08-24 07:27] LABS: Absolute Lymphocyte Count 1.52 X10^3/uL (0.83-4.51); Absolute Neutrophil Count 4.1 X10^3/uL (2.0-7.7); Basophil# 0.03 X10^3/uL; Basophil% 0.4 % (0-1); Eosinophil# 0.37 X10^3/uL; Eosinophils% 5.1 % (0-5); Hematocrit 40.3 % (40-54); Hemoglobin 12.8 g/dL (13.0-16.5); Lymphocyte # 1.52 X10^3/ul (0.83-4.51); Lymphocyte % 20.9 % (19-41); Mean Corp Hgb Conc 31.8 g/dL (32-36); Mean Corpuscular Hgb 26.8 pg (27.0-32.0); Mean Corpuscular Volume 84.5 fL (80-94); Mean Platelet Vol. 8.9 fl (6.2-12.0); Monocyte% 15.1 % (0-10); NRBC Flagged by Analyzer 0 % (0-5); Neutrophil % 56.2 % (47-70); Platelet Count 487 K/mm3 (150-450); RBC Distribution Width CV 14.3 % (11.6-14.6); RBC Distribution Width SD 44.1 fl (35.1-43.9); Red Blood Count 4.77 M/mm3 (4.6-6.2); White Blood Count 7.3 K/mm3 (4.4-11.0)
--- NOTE | 2023-08-24 07:47 | PCM.PN.HOSP ---
Reason for Visit Reason for Visit: Diagnoses Multiple sclerosis (08/18/23) Acute respiratory failure with hypoxia (08/18/23) Atelectasis (08/18/23) Constipation, unspecified (08/18/23) Other nonspecific abnormal finding of lung field (08/18/23) Subjective Subjective Slowly improving, no acute complaints Objective Data Objective Data Vital Signs: Vital Signs Temp Pulse Resp BP Pulse Ox O2 Del Method O2 Flow Rate 98.6 F 126 H 18 111/84 H 95 Bi-pap 45 08/24/23 03:34 08/24/23 04:10 08/24/23 04:10 08/24/23 03:34 08/24/23 04:10 08/24/23 03:34 08/23/23 21:21 FiO2 35 08/24/23 04:10 Oxygen Flow Rate (L/min) 45 Oxygen Delivery Method Bi-pap Weight: 134.9 kg Body Mass Index (BMI) 34.3 Intake & Output: Intake and Output for Last 24 Hours 08/22/23 08/23/23 08/24/23 23:59 23:59 23:59 Intake Total 840 / 840 Output Total 1900 / 3200 3480 / 3480 400 / 400 Balance -1900 / -3200 -2640 / -2640 -400 / -400 Lab / Micro Data 08/24/23 06:40 08/24/23 05:20 Labs: Laboratory Results - last 24 hr 08/24/23 05:20: WBC Cancelled, Corrected WBC Cancelled, RBC Cancelled, Hgb Cancelled, Hct Cancelled, MCV Cancelled, MCH Cancelled, MCHC Cancelled, RDW Std Deviation Cancelled, RDW Coeff of Bravo Cancelled, Plt Count Cancelled, MPV Cancelled, Immature Gran % (Auto) Cancelled, Neut % (Auto) Cancelled, Lymph % (Auto) Cancelled, [place] % (Auto) Cancelled, Eos % (Auto) Cancelled, Baso % (Auto) Cancelled, Absolute Neuts (auto) Cancelled, Absolute Lymphs (auto) Cancelled, Total Counted Cancelled, Neutrophils % (Manual) Cancelled, Band Neutrophils % Cancelled, Lymphocytes % (Manual) Cancelled, Monocytes % (Manual) Cancelled, Eosinophils % (Manual) Cancelled, Basophils % (Manual) Cancelled, Metamyelocytes % Cancelled, Myelocytes % Cancelled, Promyelocytes % Cancelled, Blast Cells % Cancelled, Plasma Cell % (Manual) Cancelled, Other Cells % Cancelled, Nucleated RBC % Cancelled, Nucleated RBCs/100 WBC Cancelled, Differential Comment Cancelled, Diff Path Review Cancelled, Hypersegmented Neuts Cancelled, Atypical Lymphocytes Cancelled, Reactive Lymphocytes Cancelled, Smudge Cells Cancelled, Toxic Granulation Cancelled, Toxic Vacuolation Cancelled, Dohle Bodies Cancelled, Denzel Rods Cancelled, Platelet Estimate Cancelled, Plt Morphology Comment Cancelled, RBC Morphology Cancelled 08/24/23 05:20: RBC Morphology Cancelled, Polychromasia Cancelled, Hypochromasia Cancelled, Poikilocytosis Cancelled, Basophilic Stippling Cancelled, Anisocytosis Cancelled, Microcytosis Cancelled, Macrocytosis Cancelled, Spherocytes Cancelled, Sickle Cells Cancelled, Target Cells Cancelled, Tear Drop Cells Cancelled, Ovalocytes Cancelled, Stomatocytes Cancelled, [place] Bodies Cancelled, [place] Cells Cancelled, Bite Cells Cancelled, Crenated Cell Cancelled, Acanthocytes (Spur) Cancelled, Rouleaux Cancelled, Schistocytes Cancelled, Sodium 140, Potassium 4.0, Chloride 105, Carbon Dioxide 30.0, Anion Gap 5, BUN 19 H, Creatinine 1.01, Estim Creat Clear Calc 93.01, Est GFR (MDRD) Af Amer 95, Est GFR (MDRD) Non-Af 79, BUN/Creatinine Ratio 18.8, Glucose 119 H, Calcium 9.4 08/24/23 06:40: WBC 7.3, RBC 4.77, Hgb 12.8 L, Hct 40.3, MCV 84.5, MCH 26.8 L, MCHC 31.8 L, RDW Std Deviation 44.1 H, RDW Coeff of Bravo 14.3, Plt Count 487 H, MPV 8.9, Immature Gran % (Auto) 2.300 H, Neut % (Auto) 56.2, Lymph % (Auto) 20.9, [place] % (Auto) 15.1 H, Eos % (Auto) 5.1 H, Baso % (Auto) 0.4, Absolute Neuts (auto) 4.1, Absolute Lymphs (auto) 1.52, Nucleated RBC % 0 Micro: Microbiology 08/18/23 15:05 Mucosa - Nose Respiratory Panel (PCR) - Final 08/18/23 11:50 Nasal Secretion SARS-CoV-2 & FLU Antigen (Rapid) - Final Physical Exam Narrative General: Alert, oriented HEENT: Atraumatic, normocephalic Eyes: Anicteric, normal conjunctiva, extraocular movements grossly intact Neck: Supple Respiratory: Diminished bilaterally, no wheezes today, improving respiratory effort Cardiovascular: Regular rate GI: Soft, nontender, nondistended Extremities: 2-3+ lower extremity edema with slight wrinkles developing Musculoskeletal: Moving around in bed, does not walk Neuro: Baseline deficits Skin: No rashes appreciated Psych: Cooperative Assessment & Plan Assessment/Plan (1) Bilateral pulmonary infiltrates: (2) Hx of multiple sclerosis: (3) Atelectasis: (4) Acute respiratory failure with hypoxia: (5) Constipation: PLAN: Plan Acute hypoxic respiratory failure -Etiology is currently unclear however possible aspiration versus pneumonitis versus infectious process versus heart failure -Patient with tachypnea and marked hypoxia requiring 15 L on a nonrebreather at the time of admission -Chest x-ray showed worsening infiltrates and CT is consistent with this -Check respiratory viral panel -COVID-19 is negative -Speech therapy consult as I am concerned that there may be some component of aspiration -BNP is pending -Check echocardiogram -Last 1 done in 2018 showed an EF of 65% and stage I diastolic dysfunction with trivial tricuspid valve insufficiency and a right ventricular systolic pressure of 26 mmHg -Zosyn initiated in the emergency department and will continue -Check MRSA PCR and if positive we will add vancomycin -Check procalcitonin -BNP is currently pending however machine is down and we will have to await results -BiPAP nocturnally and as needed at -Pulmonary medicine consulted-discussed with Dr. Ni -08/19: Was on BiPAP overnight which he wears, this a.m. patient is on Airvo, pulm consult, continue Zosyn, urine antigens negative, respiratory panel and COVID-negative, suspect a large component of fluid overload. Patient being aggressively diuresed, echocardiogram with EF of 55% but technically difficult study, I's and O's, daily weights -08/20: Lasix decreased to twice daily, potassium being replaced, presently on Zosyn, continue to wean O2 as tolerated -08/21: Improving and kidney function improved, antibiotics discontinued, continuing IV Lasix twice daily, patient napped on Airvo earlier and was slightly drowsy and is going to take another nap, asked for patient be put back on his AVAPS settings during his nap to avoid retaining CO2, if any mental status changes low threshold to get ABG -08/22: Was alternating between Airvo and AVAPS yesterday for the most part, will assess progress respiratory status throughout the day, remains on IV diuresis, Diuresis increased today -08/23: Slowly improving, continue present management -08/24: On 60 IV Lasix twice daily and potassium supplementation, balancing diuresis with kidney function, has slowly been improving Possible dysphagia -N.p.o. for now -Gentle hydration for now -Speech therapy consult -Okay for meds with applesauce until evaluated by speech therapy -08/19: Speech consult, patient for cookie swallow hopefully tomorrow once he is able to be weaned down on Airvo -08/20: Plan for cookie swallow today -08/21: Patient okay for regular diet with small sips 1 at a time and sit upright for food and drink regular diet -08/24: Tolerating diet well CKDIIIb -Creatinine 1.24 on arrival, decreased slightly yesterday but increased 1.37 today, Lasix scaled back to twice daily, continue to monitor daily weights and I's and O's -08/21: Improved today with decrease Lasix dose -08/22: Continues to improve, continue daily weights, I's and O's, Lasix -08/24: Bumped up slightly today but does not meet criteria for LUPE, monitoring I's and O's and daily weights Lower extremity edema - states that this has worsened rate recently and she is restarted his HCTZ -We will continue HCTZ for now but may need to transition to Lasix depending on echocardiogram and BNP -I am not totally convinced that his respiratory distress is related to pulmonary edema at this time however -08/19: BNP 97.2, echo with EF 55% but technically difficult study and unable to further assess, given clinical picture patient being aggressively diuresed -08/20: Lasix decreased to twice daily today -08/22: Lasix dose increased to 60 twice daily -08/23: Has slight wrinkles today though still significant edema -08/24: Continue diuresis and monitoring I's and O's and weights as able Acute on chronic constipation -Patient has not had a bowel movement about 5 days -We will schedule a rectal suppository today and then leave as needed per patient's discretion as he does have trouble with diarrhea if he gets too much stool softener -Monitor clinically -08/19: Monitor and adjust bowel regimen as needed Multiple sclerosis -Severe chronic left-sided weakness -PT/OT consultation -Hold home MS medication -08/19: PT/OT -08/24: Work with OT is applicable, patient would like to go home and not placement on discharge JOSH/chronic hypercapnia related to MS -Continue nocturnal BiPAP at -May need AVAPS depending on pulmonary medicine input -08/19: BiPAP nightly which will be changed to AVAPS, pulm on board -08/21: Room air ABG before discharge -08/24: Continue AVAPS, ABG on room air prior to DC Hyperlipidemia -continue simvastatin BPH -Continue Flomax GERD -Continue Protonix Hypertension -Continue home lisinopril -Continue home carvedilol -08/19: BP 96/68 this a.m., will hold home lisinopril, continue home carvedilol -08/20: BP remains somewhat low, will scale back on carvedilol -08/22: BP acceptable, continue present medications -08/24: Doing well today, no further adjustments needed at this time History of paroxysmal atrial fibrillation -Currently in sinus rhythm -Continue home apixaban -Continue home carvedilol -08/19: Continue carvedilol and Eliquis History of saddle PE/DVT -Continue home apixaban History of bladder cancer status post resection and chemotherapy -Stable Anxiety/depression -Continue home duloxetine DVT prophylaxis -Home apixaban CODE STATUS -Full code is verified prior to admission Time spent in the patient's overall evaluation,decision-making process, review of diagnostic data, adjustment of management, discussion with other providers, nursing nursing and ancillary staff involved in patient's care documentation, 36 minutes Charges/Coding Visit Charges Inpatient E&M: [id number] [facility] Hosp L2
--- NOTE | 2023-08-24 08:17 | PN.CC_ITS ---
Assessment & Plan Assessment/Plan (1) Acute respiratory failure with hypoxia: (2) Hx of multiple sclerosis: (3) Bilateral pulmonary infiltrates: PLAN: Plan RECOMMENDATIONS: 1. Continue slightly increased current diuresis 2. Electrolyte supplementation as necessary 3. Monitor off antibiotics 4. Continue NIV 5. Possibly obtain a chest x-ray in the next 24 to 48 hours if oxygen requirements do not continue to decrease 6. Increase activity as tolerated IMPRESSIONS: 1. Acute hypoxic respiratory failure Unclear etiology at this time. Multiple possible etiologies need to be investigated. Patient is up over 11 kg from earlier this month with significant swelling of the left upper extremity and bilateral lower extremities. Patient is on anticoagulation, so DVT would be unlikely. We will treat patient with ag gressive diuresis. Patient does appear to be responding to diuretic therapy, but this is slow. Patient tolerating twice daily Lasix dosing as patient appears to tolerate this better than every 8 hour dosing. Goal diuresis will be -2 to 3 L/day. Echocardiogram was relatively unhelpful secondary to window quality. Patient swallow study shows no silent aspiration. We will monitor off antibiotics. 2. MS/JOSH/hyperlipidemia/BPH/hypertension/history of PE/anxiety/depression Complicates care, management, recovery and prognosis. Patient will be transitioned over to an NIV for JOSH control. Patient has a Ov catheter in place at this time. Patient can remain on anticoagulation from my perspective. Subjective Subjective Patient did well overnight. No acute issues were reported. Patient overall feels subjectively improved compared to previous. Patient has been able to tolerate breakfast well. Patient's nasal cannula oxygen has been improving through the morning. Objective Data Objective Data Vital Signs: Vital Signs Temp Pulse Resp BP Pulse Ox O2 Del Method O2 Flow Rate 37.0 C 126 H 18 111/84 H 99 High Flow 9 08/24/23 03:34 08/24/23 04:10 08/24/23 04:10 08/24/23 03:34 08/24/23 07:59 08/24/23 07:59 08/24/23 07:59 FiO2 35 08/24/23 04:10 Oxygen Flow Rate (L/min) 9 Oxygen Delivery Method High Flow Weight: 134.9 kg Body Mass Index (BMI) 34.3 Intake & Output: Intake and Output for Last 24 Hours 08/22/23 08/23/23 08/24/23 23:59 23:59 23:59 Intake Total 840 / 840 Output Total 1900 / 3200 3480 / 3480 400 / 400 Balance -1900 / -3200 -2640 / -2640 -400 / -400 Lab / Micro Data Attestation: I reviewed the patient's lab results. 08/24/23 06:40 08/24/23 05:20 Labs: Laboratory Results - last 24 hr 08/24/23 05:20: WBC Cancelled, Corrected WBC Cancelled, RBC Cancelled, Hgb Cancelled, Hct Cancelled, MCV Cancelled, MCH Cancelled, MCHC Cancelled, RDW Std Deviation Cancelled, RDW Coeff of Bravo Cancelled, Plt Count Cancelled, MPV Cancelled, Immature Gran % (Auto) Cancelled, Neut % (Auto) Cancelled, Lymph % (Auto) Cancelled, [place] % (Auto) Cancelled, Eos % (Auto) Cancelled, Baso % (Auto) Cancelled, Absolute Neuts (auto) Cancelled, Absolute Lymphs (auto) Cancelled, Total Counted Cancelled, Neutrophils % (Manual) Cancelled, Band Neutrophils % Cancelled, Lymphocytes % (Manual) Cancelled, Monocytes % (Manual) Cancelled, Eosinophils % (Manual) Cancelled, Basophils % (Manual) Cancelled, Metamyelocytes % Cancelled, Myelocytes % Cancelled, Promyelocytes % Cancelled, Blast Cells % Cancelled, Plasma Cell % (Manual) Cancelled, Other Cells % Cancelled, Nucleated RBC % Cancelled, Nucleated RBCs/100 WBC Cancelled, Differential Comment Cancelled, Diff Path Review Cancelled, Hypersegmented Neuts Cancelled, Atypical Lymphocytes Cancelled, Reactive Lymphocytes Cancelled, Smudge Cells Cancelled, Toxic Granulation Cancelled, Toxic Vacuolation Cancelled, Dohle Bodies Cancelled, Denzel Rods Cancelled, Platelet Estimate Cancelled, Plt Morphology Comment Cancelled, RBC Morphology Cancelled 08/24/23 05:20: RBC Morphology Cancelled, Polychromasia Cancelled, Hypochromasia Cancelled, Poikilocytosis Cancelled, Basophilic Stippling Cancelled, Anisocytosis Cancelled, Microcytosis Cancelled, Macrocytosis Cancelled, Spherocytes Cancelled, Sickle Cells Cancelled, Target Cells Cancelled, Tear Drop Cells Cancelled, Ovalocytes Cancelled, Stomatocytes Cancelled, [place] Bodies Cancelled, [place] Cells Cancelled, Bite Cells Cancelled, Crenated Cell Cancelled, Acanthocytes (Spur) Cancelled, Rouleaux Cancelled, Schistocytes Cancelled, Sodium 140, Potassium 4.0, Chloride 105, Carbon Dioxide 30.0, Anion Gap 5, BUN 19 H, Creatinine 1.01, Estim Creat Clear Calc 93.01, Est GFR (MDRD) Af Amer 95, Est GFR (MDRD) Non-Af 79, BUN/Creatinine Ratio 18.8, Glucose 119 H, Calcium 9.4 08/24/23 06:40: WBC 7.3, RBC 4.77, Hgb 12.8 L, Hct 40.3, MCV 84.5, MCH 26.8 L, MCHC 31.8 L, RDW Std Deviation 44.1 H, RDW Coeff of Bravo 14.3, Plt Count 487 H, MPV 8.9, Immature Gran % (Auto) 2.300 H, Neut % (Auto) 56.2, Lymph % (Auto) 20.9, [place] % (Auto) 15.1 H, Eos % (Auto) 5.1 H, Baso % (Auto) 0.4, Absolute Neuts (auto) 4.1, Absolute Lymphs (auto) 1.52, Nucleated RBC % 0 Micro: Microbiology 08/18/23 15:05 Mucosa - Nose Respiratory Panel (PCR) - Final 08/18/23 11:50 Nasal Secretion SARS-CoV-2 & FLU Antigen (Rapid) - Final Physical Exam Const alert, oriented x3, no apparent distress and well nourished; Negative for average body habitus or healthy appearing Constitutional Narrative: Patient on nasal cannula during my evaluation. Anasarca improved. Starting to develop wrinkles in lower extremities, feet still very edematous General Appearance: cooperative HEENT normocephalic, head/scalp atraumatic and hearing grossly normal bilaterally Eyes PERRL, EOMs intact bilaterally and conjunctivae normal Eyes Narrative: No scleral icterus Neck no lymphadenopathy and supple Neck Narrative: Trachea midline, no thyroid enlargement Resp normal respiratory effort, no retractions, no use of accessory muscles and No clear to auscultation bilaterally Resp Narrative: Scattered wheezing and crackles bilaterally in all lung forbes with left being greater than right. Slightly improved compared to yesterday Auscultation: crackles, rales and wheezes; Negative for rhonchi Cardio regular rate, regular rhythm, S1 normal heart sound, S2 normal heart sound, no murmurs, no rub, no gallops and no clicks GI normal to inspection, nondistended, normoactive bowel sounds Extremity Extremity Narrative: Significant edema noted of bilateral lower extremities (2+). Patient is starting to get wrinkles in lower extremities. Arm edema has resolved Skin no rashes or lesions noted, no wounds, skin turgor normal, no jaundice, no petechiae and no mottling Skin Narrative: Skin is pale Neuro oriented x3 and CN's II-XII intact bilaterally Neuro Narrative: Significantly Limited movement on the left side. Decrease sensation of bilateral lower extremities Speech: speech normal Psych affect normal Psych Narrative: Eye contact is good, patient interacts appropriately Charges/Coding Visit Charges Inpatient E&M: 13895 Subs Hosp L2
[2023-08-24] MEDS: Furosemide 100 MG/10 ML Vial 60 MG IV ×2 (09:05→16:40)
[2023-08-24] MEDS: Carvedilol 6.25 MG Tablet PO ×3 (09:05→16:40)
[2023-08-24] MEDS: APIXABAN 5 MG TABLET PO ×2 (09:05→21:47)
[2023-08-24] MEDS: guaiFENesin 1,200 MG Tablet 1200 MG PO ×2 (09:05→21:47)
[2023-08-24] MEDS: 0.9% Saline Lock 10 ML Syringe IV ×2 (09:05→16:40)
[2023-08-24] MEDS: Vitamin E 400 UNITS Capsule PO (09:06)
[2023-08-24] MEDS: Cholecalciferol (VIT D3) 25 MCG TABLET (1,000 UNITS) 125 MCG PO (09:06)
[2023-08-24] MEDS: Sodium Bicarbonate 650 MG Tablet PO ×2 (09:06→21:47)
[2023-08-24] MEDS: Multivitamins,Therapeutic Tablet 1 TABLET PO (09:07)
[2023-08-24] MEDS: Pantoprazole Sodium 40 MG Tablet PO (09:07)
[2023-08-24] MEDS: Potassium Chloride Oral Tablet 20 MEQ PO ×2 (10:01→16:40)
[2023-08-24] MEDS: Atorvastatin Calcium 10 MG Tablet PO (21:47)
[2023-08-24] MEDS: Tamsulosin HCl 0.4 MG Capsule 0.400000000000000022 MG PO (21:47)
[2023-08-24] MEDS: DULoxetine Hcl 60 MG Capsule PO (21:47)
[2023-08-25] VITALS (11 sets, daily range): BP systolic 102–125; BP diastolic 62–82; PULSE 78–107; RESP 12–19; TEMP 36.4–37.7; O2SAT 89–98; BMI 34.0
[2023-08-25 06:05] LABS: Absolute Lymphocyte Count 1.51 X10^3/uL (0.83-4.51); Absolute Neutrophil Count 3.5 X10^3/uL (2.0-7.7); Basophil# 0.04 X10^3/uL; Basophil% 0.6 % (0-1); Eosinophil# 0.47 X10^3/uL; Hematocrit 40.2 % (40-54); Hemoglobin 12.7 g/dL (13.0-16.5); Lymphocyte # 1.51 X10^3/ul (0.83-4.51); Lymphocyte % 22.4 % (19-41); Mean Corp Hgb Conc 31.6 g/dL (32-36); Mean Corpuscular Hgb 26.6 pg (27.0-32.0); Mean Corpuscular Volume 84.3 fL (80-94); Mean Platelet Vol. 9.1 fl (6.2-12.0); Monocyte# 1.01 X10^3/uL; NRBC Flagged by Analyzer 0 % (0-5); Neutrophil # 3.53 X10^3/uL (2.7-7.7); Neutrophil % 52.5 % (47-70); Platelet Count 499 K/mm3 (150-450); RBC Distribution Width CV 14.2 % (11.6-14.6); Red Blood Count 4.77 M/mm3 (4.6-6.2); White Blood Count 6.7 K/mm3 (4.4-11.0)
[2023-08-25 06:45] LABS: Anion Gap 5 (5-15); BUN 20 mg/dL (7-18); BUN/Creat Ratio 24.4 RATIO (10-20); Calcium,Total 9.4 mg/dL (8.5-10.1); Chloride 104 mmol/L (98-107); Creatinine, Serum 0.82 mg/dL (0.70-1.30); EST Glomerular Filtration Rate 100 mL/min (>60); Est Glom Filt Rate - Afr Amer 121 mL/min (>60); Estimated Creatinine Clearance 114.56 ml/min; Glucose 119 mg/dL (74-106); Potassium 3.4 mmol/L (3.5-5.1); Sodium Level 140 mmol/L (136-145)
[2023-08-25] MEDS: Potassium Chloride Oral Tablet 20 MEQ PO ×2 (08:48→17:13)
[2023-08-25] MEDS: Vitamin E 400 UNITS Capsule PO (08:49)
[2023-08-25] MEDS: Multivitamins,Therapeutic Tablet 1 TABLET PO (08:49)
[2023-08-25] MEDS: Sodium Bicarbonate 650 MG Tablet PO ×2 (08:49→22:29)
[2023-08-25] MEDS: APIXABAN 5 MG TABLET PO ×2 (08:50→22:28)
[2023-08-25] MEDS: Pantoprazole Sodium 40 MG Tablet PO (08:50)
[2023-08-25] MEDS: Furosemide 100 MG/10 ML Vial 60 MG IV ×2 (08:50→17:12)
[2023-08-25] MEDS: guaiFENesin 1,200 MG Tablet 1200 MG PO ×2 (08:50→22:28)
[2023-08-25] MEDS: Cholecalciferol (VIT D3) 25 MCG TABLET (1,000 UNITS) 125 MCG PO (08:50)
[2023-08-25] MEDS: 0.9% Saline Lock 10 ML Syringe IV ×3 (08:51→17:13)
--- NOTE | 2023-08-25 10:01 | PN.CC_ITS ---
Assessment & Plan Assessment/Plan (1) Acute respiratory failure with hypoxia: (2) Hx of multiple sclerosis: (3) Bilateral pulmonary infiltrates: PLAN: Plan RECOMMENDATIONS: IMPRESSIONS: 1. Acute hypoxic respiratory failure Unclear etiology at this time. Multiple possible etiologies need to be investigated. Patient is up over 11 kg from earlier this month with significant swelling of the left upper extremity and bilateral lower extremities. Patient is on anticoagulation, so DVT would be unlikely. We will treat patient with aggressive diuresis. Patient does appear to be responding to diuretic therapy, but this is slow. Patient tolerating twice daily Lasix dosing as patient appears to tolerate this better than every 8 hour dosing. Goal diuresis will be -2 to 3 L/day. Echocardiogram was relatively unhelpful secondary to window quality. Patient swallow study shows no silent aspiration. We will monitor off antibiotics. 2. MS/JOSH/hyperlipidemia/BPH/hypertension/history of PE/anxiety/depression Complicates care, management, recovery and prognosis. Patient will be transitioned over to an NIV for JOSH control. Patient has a Vo catheter in place at this time. Patient can remain on anticoagulation from my perspective. This note was generated with [employer] dictation software. It may contain incorrect words, spelling, and punctuation that were not noted in checking the note before signing. Subjective Subjective The patient was seen and examined at the bedside this morning. Events from the last 24 hours have been reviewed. The patient is currently afebrile, hemodynamically stable and maintaining appropriate oxygen saturations on 4 L/min via nasal cannula. The patient is documented to be overall net -7.8 L for the hospitalization. He remains on scheduled IV Lasix. Potassium is low at 3.4 wit h a normal creatinine. Objective Data Objective Data The patient's most recent lab work, culture data and imaging studies have all been personally reviewed. Surface echocardiogram demonstrated normal LV size and function with an ejection fraction of 55%. Vital Signs: Vital Signs Temp Pulse Resp BP Pulse Ox O2 Del Method O2 Flow Rate 98.1 F 94 18 107/62 97 Nasal Cannula 4 08/25/23 08:45 08/25/23 08:45 08/25/23 08:45 08/25/23 08:45 08/25/23 08:45 08/25/23 08:45 08/25/23 08:45 FiO2 30 08/25/23 03:52 Oxygen Flow Rate (L/min) 4 Oxygen Delivery Method Nasal Cannula Weight: 293 lb 14.019 oz Body Mass Index (BMI) 34.0 Intake & Output: Intake and Output for Last 24 Hours 08/23/23 08/24/23 08/25/23 23:59 23:59 23:59 Intake Total 840 / 840 1155 / 1155 200 / 200 Output Total 3480 / 3480 2330 / 2330 100 / 100 Balance -2640 / -2640 -1175 / -1175 100 / 100 Lab / Micro Data Attestation: I reviewed the patient's lab results. 08/25/23 05:28 08/25/23 05:28 Labs: Laboratory Results - last 24 hr 08/25/23 05:28: WBC 6.7, RBC 4.77, Hgb 12.7 L, Hct 40.2, MCV 84.3, MCH 26.6 L, MCHC 31.6 L, RDW Std Deviation 44.0 H, RDW Coeff of Bravo 14.2, Plt Count 499 H, MPV 9.1, Immature Gran % (Auto) 2.500 H, Neut % (Auto) 52.5, Lymph % (Auto) 22.4, [place] % (Auto) 15.0 H, Eos % (Auto) 7.0 H, Baso % (Auto) 0.6, Absolute Neuts (auto) 3.5, Absolute Lymphs (auto) 1.51, Nucleated RBC % 0, Sodium 140, Potassium 3.4 L, Chloride 104, Carbon Dioxide 31.0, Anion Gap 5, BUN 20 H, Creatinine 0.82, Estim Creat Clear Calc 114.56, Est GFR (MDRD) Af Amer 121, Est GFR (MDRD) Non-Af 100, BUN/Creatinine Ratio 24.4 H, Glucose 119 H, Calcium 9.4 Micro: Microbiology 08/18/23 15:05 Mucosa - Nose Respiratory Panel (PCR) - Final 08/18/23 11:50 Nasal Secretion SARS-CoV-2 & FLU Antigen (Rapid) - Final
--- NOTE | 2023-08-25 10:01 | PCM.PN.INT ---
Assessment & Plan Assessment/Plan (1) Acute respiratory failure with hypoxia: (2) Hx of multiple sclerosis: (3) Bilateral pulmonary infiltrates: PLAN: Plan RECOMMENDATIONS: 1. Continue to wean supplemental oxygen to maintain saturations at or above 90%. 2. Ongoing diuresis as tolerated by hemodynamics and renal function. 3. Encourage incentive spirometer use while in bed. 4. Continue nocturnal PAP therapy. IMPRESSIONS: 1. Acute hypoxic respiratory failure Most likely secondary to hypervolemia, given the patient's improving respiratory status with ongoing diuresis. VTE seems unlikely given that the patient is systemically anticoagulated at his baseline. Plan to continue diuretic therapy as tolerated by hemodynamics and renal function. Continue to wean supplemental oxygen to maintain saturations at or above 90%. Encourage incentive spirometer use while in bed. Swallow evaluation was unremarkable without any evidence of aspiration. 2. MS/JOSH/hyperlipidemia/BPH/hypertension/history of PE/anxiety/depression Complicates care, management, recovery and prognosis. The patient was transitioned over to an NIV for JOSH control. Continue baseline medications as tolerated. Continue nocturnal PAP therapy. This note was generated with [employer] dictation software. It may contain incorrect words, spelling, and punctuation that were not noted in checking the note before signing. Subjective Subjective The patient was seen and examined at the bedside this morning. Events from the last 24 hours have been reviewed. The patient is currently afebrile, hemodynamically stable and maintaining appropriate oxygen saturations on 4 L/min via nasal cannula. The patient is documented to be overall net -7.8 L for the hospitalization. He remains on scheduled IV Lasix. Potassium is low at 3.4 with a normal creatinine. Overall, the patient's oxygenation status continues to improve with further volume optimization. Objective Data Objective Data The patient's most recent lab work, culture data and imaging studies have all been personally reviewed. Surface echocardiogram demonstrated normal LV size and function with an ejection fraction of 55%. Vital Signs: Vital Signs Temp Pulse Resp BP Pulse Ox O2 Del Method O2 Flow Rate 98.1 F 94 18 107/62 97 Nasal Cannula 4 08/25/23 08:45 08/25/23 08:45 08/25/23 08:45 08/25/23 08:45 08/25/23 08:45 08/25/23 08:45 08/25/23 08:45 FiO2 30 08/25/23 03:52 Oxygen Flow Rate (L/min) 4 Oxygen Delivery Method Nasal Cannula Weight: 293 lb 14.019 oz Body Mass Index (BMI) 34.0 Intake & Output: Intake and Output for Last 24 Hours 08/23/23 08/24/23 08/25/23 23:59 23:59 23:59 Intake Total 840 / 840 1155 / 1155 200 / 200 Output Total 3480 / 3480 2330 / 2330 100 / 100 Balance -2640 / -2640 -1175 / -1175 100 / 100 Lab / Micro Data Attestation: I reviewed the patient's lab results. 08/25/23 05:28 08/25/23 05:28 Labs: Laboratory Results - last 24 hr 08/25/23 05:28: WBC 6.7, RBC 4.77, Hgb 12.7 L, Hct 40.2, MCV 84.3, MCH 26.6 L, MCHC 31.6 L, RDW Std Deviation 44.0 H, RDW Coeff of Bravo 14.2, Plt Count 499 H, MPV 9.1, Immature Gran % (Auto) 2.500 H, Neut % (Auto) 52.5, Lymph % (Auto) 22.4, [place] % (Auto) 15.0 H, Eos % (Auto) 7.0 H, Baso % (Auto) 0.6, Absolute Neuts (auto) 3.5, Absolute Lymphs (auto) 1.51, Nucleated RBC % 0, Sodium 140, Potassium 3.4 L, Chloride 104, Carbon Dioxide 31.0, Anion Gap 5, BUN 20 H, Creatinine 0.82, Estim Creat Clear Calc 114.56, Est GFR (MDRD) Af Amer 121, Est GFR (MDRD) Non-Af 100, BUN/Creatinine Ratio 24.4 H, Glucose 119 H, Calcium 9.4 Micro: Microbiology 08/18/23 15:05 Mucosa - Nose Respiratory Panel (PCR) - Final 08/18/23 11:50 Nasal Secretion SARS-CoV-2 & FLU Antigen (Rapid) - Final Physical Exam Const alert and no apparent distress General Appearance: cooperative HEENT normocephalic, head/scalp atraumatic and moist oral mucous membranes Eyes PERRL, EOMs intact bilaterally and conjunctivae normal Neck supple General: trachea midline Chest inspection of chest normal Resp normal respiratory effort Auscultation: Negative for rales, rhonchi or wheezes Cardio regular rate and regular rhythm GI normal to inspection, nondistended, normoactive bowel sounds Extremity General Extremity: edema bilateral lower extremity; Negative for clubbing Skin no rashes or lesions noted Neuro oriented x3 and CN's II-XII intact bilaterally Psych cooperative and affect normal Charges/Coding Visit Charges Inpatient E&M: 58516 Subs Hosp L2
--- NOTE | 2023-08-25 11:18 | PCM.PN.HOSP ---
Reason for Visit Reason for Visit: Diagnoses Multiple sclerosis (08/18/23) Acute respiratory failure with hypoxia (08/18/23) Atelectasis (08/18/23) Constipation, unspecified (08/18/23) Other nonspecific abnormal finding of lung field (08/18/23) Subjective Subjective Patient is a 68-year-old gentleman with history of multiple sclerosis admitted with progressive generalized weakness and hypoxia. Objective Data Objective Data Vital Signs: Vital Signs Temp Pulse Resp BP Pulse Ox O2 Del Method O2 Flow Rate 98.1 F 94 18 107/62 97 Nasal Cannula 4 08/25/23 08:45 08/25/23 08:45 08/25/23 08:45 08/25/23 08:45 08/25/23 08:45 08/25/23 08:45 08/25/23 08:45 FiO2 30 08/25/23 03:52 Oxygen Flow Rate (L/min) 4 Oxygen Delivery Method Nasal Cannula Weight: 133.3 kg Body Mass Index (BMI) 34.0 Intake & Output: Intake and Output for Last 24 Hours 08/23/23 08/24/23 08/25/23 23:59 23:59 23:59 Intake Total 840 / 840 1155 / 1155 200 / 200 Output Total 3480 / 3480 2330 / 2330 100 / 100 Balance -2640 / -2640 -1175 / -1175 100 / 100 Lab / Micro Data 08/25/23 05:28 08/25/23 05:28 Labs: Laboratory Results - last 24 hr 08/25/23 05:28: WBC 6.7, RBC 4.77, Hgb 12.7 L, Hct 40.2, MCV 84.3, MCH 26.6 L, MCHC 31.6 L, RDW Std Deviation 44.0 H, RDW Coeff of Bravo 14.2, Plt Count 499 H, MPV 9.1, Immature Gran % (Auto) 2.500 H, Neut % (Auto) 52.5, Lymph % (Auto) 22.4, [place] % (Auto) 15.0 H, Eos % (Auto) 7.0 H, Baso % (Auto) 0.6, Absolute Neuts (auto) 3.5, Absolute Lymphs (auto) 1.51, Nucleated RBC % 0, Sodium 140, Potassium 3.4 L, Chloride 104, Carbon Dioxide 31.0, Anion Gap 5, BUN 20 H, Creatinine 0.82, Estim Creat Clear Calc 114.56, Est GFR (MDRD) Af Amer 121, Est GFR (MDRD) Non-Af 100, BUN/Creatinine Ratio 24.4 H, Glucose 119 H, Calcium 9.4 Micro: Microbiology 08/18/23 15:05 Mucosa - Nose Respiratory Panel (PCR) - Final 08/18/23 11:50 Nasal Secretion SARS-CoV-2 & FLU Antigen (Rapid) - Final Physical Exam Narrative GENERAL: cooperative HEENT: Atraumatic; normocephalic EYES; Anicteric, Normal Conjunctiva NECK; supple, normal thyroid, RESPIRATORY: Diminished to auscultation CARDIOVASCULAR: Regular S1 S2, GI: soft, normoactive bowel sounds, : No Renal angle tenderness; EXTREMITIES: edema, no clubbing, MUSCULOSKELETAL: no muscle wasting NEURO: Awake; no lateralizing signs. SKIN: No Rash PSYCH; Flat affect Assessment & Plan Assessment/Plan (1) Acute respiratory failure with hypoxia: PLAN: Plan Patient is a 68-year-old gentleman with history of multiple sclerosis admitted with progressive generalized weakness and hypoxia. 1. Acute hypoxic respiratory failure ? Secondary to combination of suspected aspiration, pneumonitis and heart failure. Admitted to monitored bed managed per protocol with supplemental oxygen via AVAPS 2. Suspected aspiration pneumonia ? Patient was initially managed with Zosyn and vancomycin. COVID assay came back negative. Patient completed antibiotic therapy 3. Acute congestive heart failure with preserved ejection fraction ? 2D echo obtained during hospitalization demonstrated EF of 55%. Patient managed with supplemental oxygen strict input and output Daily weight as well as diuretics 4. Suspected aspiration pneumonia ? Patient underwent speech and swallow eval patient was okayed for regular diet 5. Acute kidney injury ? Patient creatinine peaked at 1.37 down to 0.82 chronic kidney disease stage IIIb rule out 6. Multiple sclerosis ? With severe chronic left-sided weakness. Patient is is nonambulatory. PT OT as tolerated patient is on ocrelizumab 7. Chronic hypercapnia ? Related to patient multiple sclerosis as well as obstructive sleep apnea ? Patient is on nocturnal BiPAP. Seen in consultation by pulmonary medicine patient may need AVAPS on discharge 8. History of previous saddle pulmonary embolism ? Patient is on apixaban 9. Paroxysmal A-fib ? Rate controlled on systemic anticoagulation with apixaban 10. Hypertension - Blood pressure controlled, home medications continued with dose adjustment as needed 11. Chronic constipation ? Symptomatic treatment 12. Depression ? Patient is on duloxetine 13. History of bladder cancer ? Status post resection and chemo remains in remission 14. BPH ? Patient is on tamsulosin 15. Dyslipidemia -Patient is on statin therapy, continued at home dose 16. GERD ? On PPI 17. DVT prophylaxis ? On apixaban Time spent in the patient's overall evaluation,decision-making process, review of diagnostic data, adjustment of management, discussion with other providers, nursing nursing and ancillary staff involved in patient's care documentation, 50 Minutes Charges/Coding Visit Charges Inpatient E&M: 18436 [facility] Hosp L3
[2023-08-25] MEDS: Potassium Chloride 10mEq/100mL 10 MEQ/100 ML IV.SOLN. 100 MEQ IV BOLUS ×4 (11:59→15:51)
--- NOTE | 2023-08-25 13:35 | CASEMGMT ---
Social Work Pt has completed a living will and health care power of trade mark attorney naming his Mirella. Patienbt encouraged to bring documents into WC to be scanned into the medical record. Elisabeth Ayala, [employer], [employer]
[2023-08-25] MEDS: Carvedilol 6.25 MG Tablet PO (17:12)
[2023-08-25] MEDS: Atorvastatin Calcium 10 MG Tablet PO (22:28)
[2023-08-25] MEDS: DULoxetine Hcl 60 MG Capsule PO (22:29)
[2023-08-25] MEDS: Tamsulosin HCl 0.4 MG Capsule 0.400000000000000022 MG PO (22:29)
[2023-08-26] VITALS (10 sets, daily range): BP systolic 101–123; BP diastolic 71–82; PULSE 87–96; RESP 14–20; TEMP 36.4–37.1; O2SAT 88–97; BMI 34.0
[2023-08-26 05:52] LABS: Absolute Lymphocyte Count 1.56 X10^3/uL (0.83-4.51); Basophil# 0.06 X10^3/uL; Basophil% 0.8 % (0-1); Eosinophil# 0.44 X10^3/uL; Hematocrit 40.4 % (40-54); Hemoglobin 12.9 g/dL (13.0-16.5); Lymphocyte # 1.56 X10^3/ul (0.83-4.51); Lymphocyte % 21.3 % (19-41); Mean Corp Hgb Conc 31.9 g/dL (32-36); Mean Corpuscular Volume 84.7 fL (80-94); Mean Platelet Vol. 8.6 fl (6.2-12.0); Monocyte# 1.18 X10^3/uL; Monocyte% 16.1 % (0-10); NRBC Flagged by Analyzer 0 % (0-5); Neutrophil # 3.95 X10^3/uL (2.7-7.7); Neutrophil % 53.8 % (47-70); Platelet Count 510 K/mm3 (150-450); RBC Distribution Width CV 14.3 % (11.6-14.6); RBC Distribution Width SD 44.3 fl (35.1-43.9); Red Blood Count 4.77 M/mm3 (4.6-6.2); White Blood Count 7.3 K/mm3 (4.4-11.0)
[2023-08-26 06:37] LABS: Anion Gap 5 (5-15); BUN 18 mg/dL (7-18); BUN/Creat Ratio 19.5 RATIO (10-20); Calcium,Total 9.3 mg/dL (8.5-10.1); Chloride 106 mmol/L (98-107); Creatinine, Serum 0.92 mg/dL (0.70-1.30); EST Glomerular Filtration Rate 87 mL/min (>60); Est Glom Filt Rate - Afr Amer 105 mL/min (>60); Estimated Creatinine Clearance 102.11 ml/min; Glucose 118 mg/dL (74-106); Potassium 3.7 mmol/L (3.5-5.1); Sodium Level 140 mmol/L (136-145)
--- NOTE | 2023-08-26 07:52 | PCM.PN.HOSP ---
Reason for Visit Reason for Visit: Diagnoses Multiple sclerosis (08/18/23) Acute respiratory failure with hypoxia (08/18/23) Atelectasis (08/18/23) Constipation, unspecified (08/18/23) Other nonspecific abnormal finding of lung field (08/18/23) Subjective Subjective Since seen clinical condition continues to improve. Plans for patient to be assessed for possible discharge Objective Data Objective Data Vital Signs: Vital Signs Temp Pulse Resp BP Pulse Ox O2 Del Method O2 Flow Rate 98.0 F 87 14 123/82 H 95 Bi-pap 2 08/26/23 06:00 08/26/23 06:00 08/26/23 06:00 08/26/23 06:00 08/26/23 06:00 08/26/23 06:00 08/25/23 22:00 FiO2 30 08/26/23 03:45 Oxygen Flow Rate (L/min) 2 Oxygen Delivery Method Bi-pap Weight: 133.3 kg Body Mass Index (BMI) 34.0 Intake & Output: Intake and Output for Last 24 Hours 08/24/23 08/25/23 08/26/23 23:59 23:59 23:59 Intake Total 1155 / 1155 1450 / 1950 900 / 900 Output Total 2330 / 2330 2400 / 3900 2300 / 2300 Balance -1175 / -1175 -950 / -1950 -1400 / -1400 Lab / Micro Data 08/26/23 05:45 08/26/23 05:45 Labs: Laboratory Results - last 24 hr 08/26/23 05:45: WBC 7.3, RBC 4.77, Hgb 12.9 L, Hct 40.4, MCV 84.7, MCH 27.0, MCHC 31.9 L, RDW Std Deviation 44.3 H, RDW Coeff of Bravo 14.3, Plt Count 510 H, MPV 8.6, Immature Gran % (Auto) 2.000 H, Neut % (Auto) 53.8, Lymph % (Auto) 21.3, [place] % (Auto) 16.1 H, Eos % (Auto) 6.0 H, Baso % (Auto) 0.8, Absolute Neuts (auto) 4.0, Absolute Lymphs (auto) 1.56, Nucleated RBC % 0, Sodium 140, Potassium 3.7, Chloride 106, Carbon Dioxide 29.0, Anion Gap 5, BUN 18, Creatinine 0.92, Estim Creat Clear Calc 102.11, Est GFR (MDRD) Af Amer 105, Est GFR (MDRD) Non-Af 87, BUN/Creatinine Ratio 19.5, Glucose 118 H, Calcium 9.3 Micro: Microbiology 08/18/23 15:05 Mucosa - Nose Respiratory Panel (PCR) - Final 08/18/23 11:50 Nasal Secretion SARS-CoV-2 & FLU Antigen (Rapid) - Final Physical Exam Narrative GENERAL: cooperative HEENT: Atraumatic; normocephalic EYES; Anicteric, Normal Conjunctiva NECK; supple, normal thyroid, RESPIRATORY: Diminished to auscultation CARDIOVASCULAR: Regular S1 S2, GI: soft, normoactive bowel sounds, : No Renal angle tenderness; EXTREMITIES: edema, no clubbing, MUSCULOSKELETAL: no muscle wasting NEURO: Awake; no lateralizing signs. SKIN: No Rash PSYCH; Flat affect Assessment & Plan Assessment/Plan (1) Acute respiratory failure with hypoxia: PLAN: Plan Patient is a 68-year-old gentleman with history of multiple sclerosis admitted with progressive generalized weakness and hypoxia. 1. Acute hypoxic respiratory failure ? Secondary to combination of suspected aspiration, pneumonitis and heart failure. Admitted to monitored bed managed per protocol with supplemental oxygen via AVAPS ? Patient to be assessed for discharge patient will need oxygen at home. Patient will need oxygen with portability since he is active with at home as well as in the community 2. Suspected aspiration pneumonia ? Patient was initially managed with Zosyn and vancomycin. COVID assay came back negative. Patient completed antibiotic therapy 3. Acute congestive heart failure with preserved ejection fraction ? 2D echo obtained during hospitalization demonstrated EF of 55%. Patient managed with supplemental oxygen strict input and output Daily weight as well as diuretics 4. Suspected aspiration pneumonia ? Patient underwent speech and swallow eval patient was okayed for regular diet 5. Acute kidney injury ? Patient creatinine peaked at 1.37 down to 0.82 chronic kidney disease stage IIIb rule out 6. Multiple sclerosis ? With severe chronic left-sided weakness. Patient is is nonambulatory. PT OT as tolerated patient is on ocrelizumab 7. Chronic hypercapnia ? Related to patient multiple sclerosis as well as obstructive sleep apnea ? Patient is on nocturnal BiPAP. Seen in consultation by pulmonary medicine patient may need AVAPS on discharge 8. History of previous saddle pulmonary embolism ? Patient is on apixaban 9. Paroxysmal A-fib ? Rate controlled on systemic anticoagulation with apixaban 10. Hypertension - Blood pressure controlled, home medications continued with dose adjustment as needed 11. Chronic constipation ? Symptomatic treatment 12. Depression ? Patient is on duloxetine 13. History of bladder cancer ? Status post resection and chemo remains in remission 14. BPH ? Patient is on tamsulosin 15. Dyslipidemia -Patient is on statin therapy, continued at home dose 16. GERD ? On PPI 17. DVT prophylaxis ? On apixaban Time spent in the patient's overall evaluation,decision-making process, review of diagnostic data, adjustment of management, discussion with other providers, nursing nursing and ancillary staff involved in patient's care documentation, 35 Minutes Charges/Coding Visit Charges Inpatient E&M: 03967 [facility] Hosp L2
[2023-08-26] MEDS: Vitamin E 400 UNITS Capsule PO (08:36)
[2023-08-26] MEDS: APIXABAN 5 MG TABLET PO (08:36)
[2023-08-26] MEDS: Potassium Chloride Oral Tablet 20 MEQ PO (08:36)
[2023-08-26] MEDS: Senna/Docusate Sodium 1 Tablet 2 TABLET PO (08:36)
[2023-08-26] MEDS: Sodium Bicarbonate 650 MG Tablet PO (08:36)
[2023-08-26] MEDS: 0.9% Saline Lock 10 ML Syringe IV (08:37)
[2023-08-26] MEDS: Carvedilol 6.25 MG Tablet PO (08:37)
[2023-08-26] MEDS: guaiFENesin 1,200 MG Tablet 1200 MG PO (08:37)
[2023-08-26] MEDS: Pantoprazole Sodium 40 MG Tablet PO (08:37)
[2023-08-26] MEDS: Multivitamins,Therapeutic Tablet 1 TABLET PO (08:37)
[2023-08-26] MEDS: Furosemide 100 MG/10 ML Vial 60 MG IV (08:37)
[2023-08-26] MEDS: Cholecalciferol (VIT D3) 25 MCG TABLET (1,000 UNITS) 125 MCG PO (08:37)
--- NOTE | 2023-08-26 09:26 | PN.CC_ITS ---
Assessment & Plan Assessment/Plan (1) Acute respiratory failure with hypoxia: (2) Hx of multiple sclerosis: (3) Bilateral pulmonary infiltrates: PLAN: Plan RECOMMENDATIONS: 1. Continue to wean supplemental oxygen to maintain saturations at or above 90%. 2. Ongoing diuresis as tolerated by hemodynamics and renal function. 3. Encourage incentive spirometer use while in bed. 4. Continue nocturnal PAP therapy. IMPRESSIONS: 1. Acute hypoxic respiratory failure Most likely secondary to hypervolemia, given the patient's improving respiratory status with ongoing diuresis. VTE seems unlikely given that the patient is systemically anticoagulated at his baseline. Plan to continue diuretic therapy as tolerated by hemodynamics and renal function. Continue to wean supplemental oxygen to maintain saturations at or above 90%. Encourage incentive spirometer use while in bed. Swallow evaluation was unremarkable without any evidence of aspiration. I anticipate that the patient should be ready for discharge in the next 24 to 48 hours. 2. MS/JOSH/hyperlipidemia/BPH/hypertension/history of PE/anxiety/depression Complicates care, management, recovery and prognosis. The patient was transitioned over to an NIV for JOSH control. Continue baseline medications as tolerated. Continue nocturnal PAP therapy. This note was generated with [employer] dictation software. It may contain incorrect words, spelling, and punctuation that were not noted in checking the note before signing. Subjective Subjective The patient was seen and examined at the bedside this morning. Events from the last 24 hours have been reviewed. The patient is currently afebrile, hemodynamically stable and maintaining appropriate oxygen saturations on 2 L/min via nasal cannula. The patient is now documented to be overall net -10.2 L for the hospitalization. Creatinine remains within normal limits. The patient has no specific complaints this morning. Objective Data Objective Data The patient's most recent lab work, culture data and imaging studies have all been personally reviewed. Surface echocardiogram demonstrated normal LV size and function with an ejection fraction of 55%. Vital Signs: Vital Signs Temp Pulse Resp BP Pulse Ox O2 Del Method O2 Flow Rate 97.6 F L 90 18 110/74 94 Nasal Cannula 2 08/26/23 08:35 08/26/23 08:35 08/26/23 08:35 08/26/23 08:35 08/26/23 08:35 08/26/23 08:35 08/26/23 08:35 FiO2 30 08/26/23 03:45 Oxygen Flow Rate (L/min) 2 Oxygen Delivery Method Nasal Cannula Weight: 293 lb 14.019 oz Body Mass Index (BMI) 34.0 Intake & Output: Intake and Output for Last 24 Hours 08/24/23 08/25/23 08/26/23 23:59 23:59 23:59 Intake Total 1155 / 1155 1450 / 1950 900 / 900 Output Total 2330 / 2330 2400 / 3900 2300 / 2300 Balance -1175 / -1175 -950 / -1950 -1400 / -1400 Lab / Micro Data Attestation: I reviewed the patient's lab results. 08/26/23 05:45 08/26/23 05:45 Labs: Laboratory Results - last 24 hr 08/26/23 05:45: WBC 7.3, RBC 4.77, Hgb 12.9 L, Hct 40.4, MCV 84.7, MCH 27.0, MCHC 31.9 L, RDW Std Deviation 44.3 H, RDW Coeff of Bravo 14.3, Plt Count 510 H, MPV 8.6, Immature Gran % (Auto) 2.000 H, Neut % (Auto) 53.8, Lymph % (Auto) 21.3, [place] % (Auto) 16.1 H, Eos % (Auto) 6.0 H, Baso % (Auto) 0.8, Absolute Neuts (auto) 4.0, Absolute Lymphs (auto) 1.56, Nucleated RBC % 0, Sodium 140, Potassium 3.7, Chloride 106, Carbon Dioxide 29.0, Anion Gap 5, BUN 18, Creatinine 0.92, Estim Creat Clear Calc 102.11, Est GFR (MDRD) Af Amer 105, Est GFR (MDRD) Non-Af 87, BUN/Creatinine Ratio 19.5, Glucose 118 H, Calcium 9.3 Micro: Microbiology 08/18/23 15:05 Mucosa - Nose Respiratory Panel (PCR) - Final 08/18/23 11:50 Nasal Secretion SARS-CoV-2 & FLU Antigen (Rapid) - Final Physical Exam Const alert and no apparent distress General Appearance: cooperative HEENT normocephalic, head/scalp atraumatic and moist oral mucous membranes Eyes PERRL, EOMs intact bilaterally and conjunctivae normal Neck supple General: trachea midline Chest inspection of chest normal Resp normal respiratory effort Auscultation: Negative for rales, rhonchi or wheezes Cardio regular rate and regular rhythm GI normal to inspection, nondistended, normoactive bowel sounds Extremity General Extremity: edema bilateral lower extremity; Negative for clubbing Skin no rashes or lesions noted Neuro oriented x3 and CN's II-XII intact bilaterally Psych cooperative and affect normal Charges/Coding Visit Charges Inpatient E&M: 54586 [facility] Hosp L2
--- NOTE | 2023-08-26 10:23 | PCM.DC.SUM ---
Providers Date of Admission: 08/18/23 Date of Discharge: 08/26/23 Primary Care Physician: Dr. Robert John MD Consultations 08/18/23 16:29 Consult: [employer] / Pulmonary Medicine Routine Consulting Provider: Pulmonary Medicine fiorella Hilton Reason for Consult: Acute Hypoxic Respiratory Failure EMERGENT Consult: No MD Notified: Yes Date Notified: 08/18/23 Time Notified: 15:33 Method of Notification: Verbal Reason For Visit: ACUTE HYPOXIC RESPIRATORY FAILURE Diagnosis Discharge Diagnosis (1) Acute respiratory failure with hypoxia: Status: Acute Code(s): J96.01 - Acute respiratory failure with hypoxia (2) Bilateral pulmonary infiltrates: Status: Acute Code(s): R91.8 - Other nonspecific abnormal finding of lung field (3) Hx of multiple sclerosis: Status: Acute Code(s): G35 - Multiple sclerosis Plan Patient is a 68-year-old gentleman with history of multiple sclerosis admitted with progressive generalized weakness and hypoxia. 1. Acute hypoxic respiratory failure ? Secondary to combination of suspected aspiration, pneumonitis and heart failure. Admitted to monitored bed managed per protocol with supplemental oxygen via AVAPS ? Patient to be assessed for discharge patient will need oxygen at home. Patient will need oxygen with portability since he is active with at home as well as in the community 2. Suspected aspiration pneumonia ? Patient was initially managed with Zosyn and vancomycin. COVID assay came back negative. Patient completed antibiotic therapy 3. Acute congestive heart failure with preserved ejection fraction ? 2D echo obtained during hospitalization demonstrated EF of 55%. Patient managed with supplemental oxygen strict input and output Daily weight as well as diuretics 4. Suspected aspiration pneumonia ? Patient underwent speech and swallow eval patient was okayed for regular diet 5. Acute kidney injury ? Patient creatinine peaked at 1.37 down to 0.82 chronic kidney disease stage IIIb rule out 6. Multiple sclerosis ? With severe chronic left-sided weakness. Patient is is nonambulatory. PT OT as tolerated patient is on ocrelizumab 7. Chronic hypercapnia ? Related to patient multiple sclerosis as well as obstructive sleep apnea ? Patient is on nocturnal BiPAP. Seen in consultation by pulmonary medicine patient may need AVAPS on discharge 8. History of previous saddle pulmonary embolism ? Patient is on apixaban 9. Paroxysmal A-fib ? Rate controlled on systemic anticoagulation with apixaban 10. Hypertension - Blood pressure controlled, home medications continued with dose adjustment as needed 11. Chronic constipation ? Symptomatic treatment 12. Depression ? Patient is on duloxetine 13. History of bladder cancer ? Status post resection and chemo remains in remission 14. BPH ? Patient is on tamsulosin 15. Dyslipidemia -Patient is on statin therapy, continued at home dose 16. GERD ? On PPI 17. DVT prophylaxis ? On apixaban Time spent in the patient's overall evaluation,decision-making process, review of diagnostic data, adjustment of management, discussion with other providers, nursing nursing and ancillary staff involved in patient's care documentation, 35 Minutes Medications at Discharge Home Medications ocrelizumab 30 mg/mL intravenous solution (Ocrevus) 600 mg IV .COMPLEX multiple sclerosis 11/04/17 cholecalciferol (vitamin D3) 25 mcg (1,000 unit) tablet 5,000 unit PO DAILY supplement 05/28/18 multivitamin with folic acid 400 mcg tablet 1 tab PO DAILY supplement 05/28/18 pantoprazole 40 mg tablet,delayed release 40 mg PO DAILY reflux 12/01/19 potassium citrate 15 mEq (1,620 mg) tablet,extended release 15 meq PO BID ##60 02/04/20 albuterol sulfate 2.5 mg/3 mL (0.083 %) solution for nebulization 2.5 mg (3 mL) inhalation Q4H PRN shortness of breath or wheezing #180 vials 01/17/21 duloxetine 60 mg capsule,delayed release 60 mg PO QHS nerve 07/02/22 meclizine 25 mg tablet 25 mg PO DAILY PRN Dizziness 07/02/22 tamsulosin 0.4 mg capsule 0.4 mg PO QHS 07/02/22 carvedilol 12.5 mg tablet (Coreg) 12.5 mg PO BID #180 tabs 11/08/22 apixaban 5 mg tablet 5 mg PO BID blood thinner #180 tabs 05/15/23 simvastatin 20 mg tablet 20 mg PO QHS 07/02/23 lisdexamfetamine 50 mg capsule 50 mg PO DAILY MS 07/03/23 sodium bicarbonate 650 mg tablet 650 mg PO BID 07/03/23 lisinopril 20 mg tablet 20 mg PO DAILY 08/11/23 vitamin E 200 unit capsule 400 unit PO DAILY 08/18/23 furosemide 40 mg tablet (Lasix) 40 mg PO BID #60 tabs 08/26/23 guaifenesin 1,200 mg tablet, extended release 12 hr (Mucus Relief ER) 1,200 mg PO BID #14 tabs 08/26/23 sennosides 8.6 mg-docusate sodium 50 mg tablet (Stool Softener-Stimulant Laxative) 2 tab PO BID #60 tabs 08/26/23 sodium chloride 0.65 % nasal spray aerosol 2 spray NASAL TID PRN PRN NASAL DRYNESS #100 mL 08/26/23 Hospital Course Summary of Care Provided Minutes Spent on Discharge: 35 Physical Exam Narrative GENERAL: cooperative HEENT: Atraumatic; normocephalic EYES; Anicteric, Normal Conjunctiva NECK; supple, normal thyroid, RESPIRATORY: Diminished to auscultation CARDIOVASCULAR: Regular S1 S2, GI: soft, normoactive bowel sounds, : No Renal angle tenderness; EXTREMITIES: edema, no clubbing, MUSCULOSKELETAL: no muscle wasting NEURO: Awake; no lateralizing signs. SKIN: No Rash PSYCH; Flat affect Weight / BMI Weight Weight: 133.3 kg Body Mass Index (BMI) 34.0 ABG / Lab / Microbiology Data 08/26/23 05:45 08/26/23 05:45 Laboratory: Laboratory Results - last 24 hr 08/26/23 05:45: WBC 7.3, RBC 4.77, Hgb 12.9 L, Hct 40.4, MCV 84.7, MCH 27.0, MCHC 31.9 L, RDW Std Deviation 44.3 H, RDW Coeff of Bravo 14.3, Plt Count 510 H, MPV 8.6, Immature Gran % (Auto) 2.000 H, Neut % (Auto) 53.8, Lymph % (Auto) 21.3, [place] % (Auto) 16.1 H, Eos % (Auto) 6.0 H, Baso % (Auto) 0.8, Absolute Neuts (auto) 4.0, Absolute Lymphs (auto) 1.56, Nucleated RBC % 0, Sodium 140, Potassium 3.7, Chloride 106, Carbon Dioxide 29.0, Anion Gap 5, BUN 18, Creatinine 0.92, Estim Creat Clear Calc 102.11, Est GFR (MDRD) Af Amer 105, Est GFR (MDRD) Non-Af 87, BUN/Creatinine Ratio 19.5, Glucose 118 H, Calcium 9.3 Microbiology: Microbiology 08/18/23 15:05 Mucosa - Nose Respiratory Panel (PCR) - Final 08/18/23 11:50 Nasal Secretion SARS-CoV-2 & FLU Antigen (Rapid) - Final D/C Instructions Discharge Diet: 8 Cup Fluid Restriction and 2000 mg Sodium Diet Discharge Activity: Return to Normal Activity Call your doctor if you observe: Fever of 101 or Higher, Shortness of breath, Fainting spells and Chest pain Meaningful Use Info Meaningful Use Diagnoses (Choose all that apply): CHF CHF MESSI/ARB ordered at discharge?: Yes Documented LVEF (%): 55 Discharge Plan Admission Admit Date/Time: 08/18/23 14:21 Attending Provider: Tad Neely Primary Care Provider: Robert John Consulting Providers: Otoniel Ni; Julio C Liz; Estephania Sosa; Zoran Segundo; Alex Meng; Sita Cyr STUDENT FINANCE ADVISOR; Faby Meehan; Luba Tejada Discharge Orders/Prescriptions Prescriptions: New sodium chloride 0.65 % Aerosol,[place] 2 spray NASAL TID PRN PRN (Reason: NASAL DRYNESS) Qty: 100 0RF guaifenesin [Mucus Relief ER] 1,200 mg Tablet Extended Release 12hr 1,200 mg PO BID Qty: 14 0RF furosemide [Lasix] 40 mg tablet 40 mg PO BID Qty: 60 0RF sennosides-docusate sodium [Stool Softener-Stimulant Laxat] 8.6-50 mg Tablet 2 tab PO BID Qty: 60 0RF Continued ocrelizumab [Ocrevus] 30 mg/mL solution 600 mg IV .COMPLEX Patient Comments: every 6 months Rx Instructions: every 6 months simvastatin 20 mg tablet 20 mg PO QHS sodium bicarbonate 650 mg tablet 650 mg PO BID Patient Comments: TAKE 1 TABLET BY MOUTH TWICE A DAY cholecalciferol (vitamin D3) 1,000 UNIT tablet 5,000 unit PO DAILY Patient Comments: vitamin multivitamin with folic acid 1 TABLET tablet 1 tab PO DAILY Patient Comments: vitamin pantoprazole 40 MG tablet 40 mg PO DAILY lisdexamfetamine 50 mg capsule 50 mg PO DAILY Patient Comments: add potassium citrate 15 MEQ tablet extended release 15 meq PO BID Qty: 60 5RF meclizine 25 mg tablet 25 mg PO DAILY PRN (Reason: Dizziness) Patient Comments: TAKE 1 TABLET BY MOUTH TWICE A DAY NEEDED duloxetine 60 mg capsule,delayed release(DR/EC) 60 mg PO QHS Patient Comments: TAKE 1 CAPSULE BY MOUTH EVERY DAY tamsulosin 0.4 mg capsule 0.4 mg PO QHS lisinopril 20 mg tablet 20 mg PO DAILY Patient Comments: TAKE 1 TABLET BY MOUTH EVERY DAY vitamin E 200 unit capsule 400 unit PO DAILY albuterol sulfate 2.5 mg /3 mL (0.083 %) solution for nebulization 2.5 mg INHALATION Q4H PRN (Reason: shortness of breath or wheezing) Qty: 180 6RF carvedilol [Coreg] 12.5 mg tablet 12.5 mg PO BID Qty: 180 3RF Rx Instructions: must administer with a meal/food apixaban 5 mg tablet 5 mg PO BID Qty: 180 6RF Discontinued hydrochlorothiazide 12.5 mg capsule 12.5 mg PO Q12H Patient Comments: TAKE 1 CAPSULE BY MOUTH ONCE DAILY Referrals / Follow Up: Robert John MD [Primary Care Provider] - Within 2 Weeks Disposition Disposition (needs filled in before D/C Order can be placed): Home Health Service Charges/Coding Visit Charges Inpatient E&M: 83800 Disch Hosp >30min
--- NOTE | 2023-08-26 11:05 | CASEMGMT ---
ELIZABETH PINEDA Follow-up: This RN CM met with pt at bedside. Reviewed planned discharge for this date. Pt states he has all needed equipment at home including electric w/c, hospital bed, w/c accessible van, mihaela lift and the support of his for assistance. Pt agreeable to resumption of [facility] for SN, PT/OT tx and requesting home O2. Discussed home O2 qualification with pt's RN and testing obtained. Pt does qualify for home O2. Pt requested [facility] to supply. Referral sent via [facility] to [facility]. Pt requested this RN CM call his [facility]. Call placed to [facility] and confirmed plan for home O2 and resumption of HH. Pt's states her son will help transport pt home and will be later this afternoon after they get off of work. No additional DC needs identified at this time. DC Plan: [facility] for SN, PT/OT and home O2 2l/min w/exertion from [facility]. Kaylan Waller RN CM
--- NOTE | 2023-08-26 11:55 | PHA.DC.MC.R ---
Pharmacy [facility] has performed discharge medication reconciliation and counseling for this patient. The patient's discharge medication list was reviewed for discrepancies and discrepancies were resolved. The patient was counseled on the following discharge medications and changes in medications for homegoing were reviewed. The Reason for Use, instructions for use, and potential side effects were reviewed for all new medications. The patient's questions regarding all of their medications were answered. 1. Furosemide 40 mg PO BID 2. Guaifenesin 1200 mg PO BID x 7 days 3. Sodium chloride nasal spray 2 sprays TID PRN dryness 4. Senna/docusate 2 tabs PO BID The patient was able to verbally demonstrate an understanding of their discharge medications. Medications at Discharge Home Medications ocrelizumab 30 mg/mL intravenous solution (Ocrevus) 600 mg IV .COMPLEX multiple sclerosis 11/04/17 cholecalciferol (vitamin D3) 25 mcg (1,000 unit) tablet 5,000 unit PO DAILY supplement 05/28/18 multivitamin with folic acid 400 mcg tablet 1 tab PO DAILY supplement 05/28/18 pantoprazole 40 mg tablet,delayed release 40 mg PO DAILY reflux 12/01/19 potassium citrate 15 mEq (1,620 mg) tablet,extended release 15 meq PO BID supplement ##60 02/04/20 albuterol sulfate 2.5 mg/3 mL (0.083 %) solution for nebulization 2.5 mg (3 mL) inhalation Q4H PRN shortness of breath or wheezing #180 vials 01/17/21 duloxetine 60 mg capsule,delayed release 60 mg PO QHS nerve 07/02/22 meclizine 25 mg tablet 25 mg PO DAILY PRN Dizziness 07/02/22 tamsulosin 0.4 mg capsule 0.4 mg PO QHS prostate 07/02/22 carvedilol 12.5 mg tablet (Coreg) 12.5 mg PO BID blood pressure #180 tabs 11/08/22 apixaban 5 mg tablet 5 mg PO BID blood thinner #180 tabs 05/15/23 simvastatin 20 mg tablet 20 mg PO QHS cholesterol 07/02/23 lisdexamfetamine 50 mg capsule 50 mg PO DAILY MS 07/03/23 sodium bicarbonate 650 mg tablet 650 mg PO BID supplement 07/03/23 lisinopril 20 mg tablet 20 mg PO DAILY blood pressure 08/11/23 vitamin E 200 unit capsule 400 unit PO DAILY vitamin 08/18/23 furosemide 40 mg tablet (Lasix) 40 mg PO BID #60 tabs 08/26/23 guaifenesin 1,200 mg tablet, extended release 12 hr (Mucus Relief ER) 1,200 mg PO BID #14 tabs 08/26/23 sennosides 8.6 mg-docusate sodium 50 mg tablet (Stool Softener-Stimulant Laxative) 2 tab PO BID #60 tabs 08/26/23 sodium chloride 0.65 % nasal spray aerosol 2 spray NASAL TID PRN PRN NASAL DRYNESS #100 mL 08/26/23
== END 2023-08-26 17:33 | disposition home health service (06) | DRG 189 ==
LOC: ED 14:22 → MS3 14:38 → PCU 15:36
PROVIDERS: Internal Medicine; Admitting Provider Internal Medicine; Emergency Provider Emergency Medicine; PCP Internal Medicine; Visit Provider Internal Medicine
DX: J96.01 Acute respiratory failure with hypoxia (principal); I50.31 Acute diastolic (congestive) heart failure; N17.9 Acute kidney failure, unspecified; J98.11 Atelectasis; G35 Multiple sclerosis; I48.0 Paroxysmal atrial fibrillation; E78.5 Hyperlipidemia, unspecified; E87.70 Fluid overload, unspecified; I11.0 Hypertensive heart disease with heart failure; F32.A Depression, unspecified; K59.09 Other constipation; G47.33 Obstructive sleep apnea (adult) (pediatric); F41.9 Anxiety disorder, unspecified; K21.9 Gastro-esophageal reflux disease without esophagitis; R91.8 Other nonspecific abnormal finding of lung field; Z79.01 Long term (current) use of anticoagulants; N40.0 Benign prostatic hyperplasia without lower urinary tract symptoms; Z92.21 Personal history of antineoplastic chemotherapy; Z86.711 Personal history of pulmonary embolism; Z87.440 Personal history of urinary (tract) infections
CPT/HCPCS: 36415; 71045; 71250; 74230; 80048; 80053; 81001; 83735; 83880; 84100; 84145; 85025; 87428; 87633; 87641; 92526; 92610; 92611; 93005; 93306; 94002; 94003; 94640; 94660; 94762; 97110; 97166; 97802; 97803; 99252; 99285; Q9957; 90662; A4216; C8929; G0463; J1940; J2405

== ENCOUNTER → 2023-09-16 | Outpatient (CLI) | payer MEDICARE, SELFPAY | END | disposition home or self-care (01) | LOC: LABSPEC 16:07 | PROVIDERS: PCP Internal Medicine; Referring Provider Urology; Visit Provider Urology | DX: R30.0 Dysuria (principal) | CPT/HCPCS: 87077; 87086; 87088; 87186 ==

== ENCOUNTER 2023-10-03 13:24 | Observation (INO) | payer MEDICARE, SELFPAY ==
[2023-10-03] VITALS (10 sets, daily range): BP systolic 74–121; BP diastolic 52–77; PULSE 66–102; RESP 16–18; TEMP 36.1–37.4; O2SAT 87–97; BMI 33.5; BMI 35.3
[2023-10-03] MEDS: Lactated Ringers 1,000 ML 15 ML IV (09:20)
[2023-10-03] MEDS: Cefazolin 3 GM in 0.9% Normal Saline (100mL Bag) 100 ML IV (12:25)
--- NOTE | 2023-10-03 13:28 | PCM.HP.STD ---
HPI - General General Date of Service: 10/03/23 Chief Complaint: Infected left kidney stone HPI Narrative NERY MIDDLETON, is a 68 M who presents to the hospital for treatment of a left kidney stone recently had sepsis in the hospital I think the source of the sepsis was probably this kidney stone in the left kidney that is chronic obstructive probably is an infected stone Sorg and treated he was pretreated before the surgery but a culture was done that grew out Staphylococcus he was given Macrobid and preoperative preparations for surgery [facility] Medical History (Updated 09/23/23 @ 11:24 by Amanda Guerra) Abnormal EKG Atrial septal defect Bladder cancer Cancer Cardiology follow-up encounter Chronic anticoagulation COVID-19 CPAP (continuous positive airway pressure) dependence Depression Easy bruising Excessive bleeding Gastric reflux High cholesterol History of atrial fibrillation History of echocardiogram History of edema Hx of multiple sclerosis Hyperlipidemia Hypertension Kidney stones Multiple sclerosis Non-smoker Normal stress echocardiogram Obstructive sleep apnea On home oxygen therapy Paroxysmal atrial fibrillation Pulmonary embolism Recurrent UTI Sleep apnea Syncope due to orthostatic hypotension Uses wheelchair Wears glasses Home Medications ocrelizumab 30 mg/mL intravenous solution (Ocrevus) 600 mg IV .COMPLEX multiple sclerosis 11/04/17 [History Last Taken 10/03/23] cholecalciferol (vitamin D3) 25 mcg (1,000 unit) tablet 5,000 unit PO DAILY supplement 05/28/18 [History Last Taken 08/17/23] multivitamin with folic acid 400 mcg tablet 1 tab PO DAILY supplement 05/28/18 [History Last Taken 08/17/23] pantoprazole 40 mg tablet,delayed release 40 mg PO DAILY reflux 12/01/19 [History Last Taken 10/03/23] potassium citrate 15 mEq (1,620 mg) tablet,extended release 15 meq PO BID supplement ##60 02/04/20 [Rx Last Taken 08/18/23] albuterol sulfate 2.5 mg/3 mL (0.083 %) solution for nebulization 2.5 mg (3 mL) inhalation Q4H PRN shortness of breath or wheezing #180 vials 01/17/21 [Rx Last Taken 08/18/23] duloxetine 60 mg capsule,delayed release 60 mg PO QHS nerve 07/02/22 [History Last Taken 08/17/23] meclizine 25 mg tablet 25 mg PO DAILY PRN Dizziness 08/09/22 [History Last Taken 08/17/23] tamsulosin 0.4 mg capsule 0.4 mg PO BID prostate 07/02/22 [History Last Taken 08/17/23] carvedilol 12.5 mg tablet (Coreg) 12.5 mg PO BID blood pressure #180 tabs 11/08/22 [Rx Last Taken 10/03/23] apixaban 5 mg tablet 5 mg PO BID blood thinner #180 tabs 05/15/23 [Rx Last Taken 09/29/23] simvastatin 20 mg tablet 20 mg PO QHS cholesterol 07/02/23 [History Last Taken 08/17/23] lisdexamfetamine 50 mg capsule 50 mg PO DAILY MS 07/03/23 [History Last Taken 08/18/23] sodium bicarbonate 650 mg tablet 650 mg PO BID supplement 07/03/23 [History Last Taken 08/18/23] lisinopril 20 mg tablet 20 mg PO DAILY blood pressure 08/11/23 [History Last Taken 10/03/23] vitamin E 200 unit capsule 400 unit PO DAILY vitamin 08/18/23 [History Last Taken 08/17/23] sennosides 8.6 mg-docusate sodium 50 mg tablet (Stool Softener-Stimulant Laxative) 2 tab PO BID #60 tabs 08/26/23 [Rx Last Taken Unknown] sodium chloride 0.65 % nasal spray aerosol 2 spray NASAL TID PRN PRN NASAL DRYNESS #100 mL 08/26/23 [Rx Last Taken Unknown] furosemide 40 mg tablet (Lasix) 40 mg PO DAILY 09/23/23 [History Last Taken Unknown] guaifenesin 1,200 mg tablet, extended release 12 hr (Mucus Relief ER) 1,200 mg PO BID PRN cough 09/23/23 [History Last Taken Unknown] nitrofurantoin 100 mg capsule 100 mg PO BID 09/23/23 [History Last Taken Unknown] tizanidine 4 mg tablet 4 mg PO PRN 09/23/23 [History Last Taken Unknown] Allergy/AdvReac Type Severity Reaction Status Date / Time No Known Allergies Allergy Verified 10/03/23 09:16 Family History Father CAD (coronary artery disease) Hypertension Myocardial infarction Mother Hypertension Sister Multiple sclerosis Surgical History (Updated 09/23/23 @ 11:24 by Amanda Guerra) History of bladder surgery History of cystoscopy History of esophagogastroduodenoscopy (EGD) History of lithotripsy History of vasectomy S/P ureteral stent placement Social History household members: spouse and family Smoking Status: Never smoker alcohol intake: never substance use type: does not use caffeine: Yes (very little) Vital Signs Vital Signs Vital Signs: 10/03/23 09:17 10/03/23 09:17 Temperature 96.9 F L Temperature Source Temporal Pulse Rate 76 Respiratory Rate 16 Respiratory Pattern Normal Blood Pressure 106/68 Blood Pressure Mean 80 Blood Pressure Source Monitor Blood Pressure Position Semi-Fowlers Blood Pressure Location Left Arm Pulse Ox 95 Oxygen Delivery Method Nasal Cannula Oxygen Flow Rate (L/min) 2 Weight Weight: 131.542 kg Body Mass Index (BMI) 33.5
--- NOTE | 2023-10-03 13:29 | OP.PCM_ITS ---
Report of Operation Date of Procedure: 10/03/23 Pre-Operative Diagnosis: Infected left kidney stones multiple large obstructive Post-Operative Diagnosis: The same Surgery/Procedure Performed:: Cystoscopy, left retrograde pyelogram, left ureteroscopy laser lithotripsy of stones and left stent placement Description of Surgical Findings:: Within thePatient was taken back to the operating room under anesthesia he was placed in dorsolithotomy position. The penis and testicles were prepped and draped in usual fashion when in the bladder with a 21 [place] rigid cystourethroscope. On inspection of the bladder did not see any tumors within the bladder I then cannulated the left ureter orifice with a Glidewire and then I advanced an access sheath as far as possible the access sheath went up to the proximal ureter but did not go past the UPJ and then through the access sheath and when a flexible ureteroscope immediately saw the like it cloud clot-like looking material that may be look like either of stone milk of calcium or infected stone and then behind this was a bunch of tone of small stones so then proceeded with laser lithotripsy of all the small stones during the case that also irrigate out the pelvis using a Pollick catheter to irrigate out all the debris at the end spent about a long time lasering the stones finally had lasered them until just a bunch of little fragments up in the kidney into calyces a all the stones were lasered to small pieces that should all pass on their own but it is quite a large amount of stones. We did irrigate copiously during the case to make sure that all the fragments were clear and that no major fragments were seen at the end just small fragments were seen I did put a stent up on the left side we will keep the patient in observation overnight given the fact that this looks like an infected stone continue antibiotics hopefully go home over the weekend. Surgeon: Wilmer Bernardo Type of Anesthesia: General Drains: stent left side Admit VTE Documentation VTE Present on Admission: No VTE Mechan Device Prophylaxis: SCD's VTE Pharm Prophylaxis ordered?: No
--- NOTE | 2023-10-03 13:29 | PCM.DC ---
Discharge Instructions Diet Discharge Diet: No restrictions Activity Discharge Activity: Return to Normal Activity and May Not Drive (while taking narcotic pain medications.) Dressing / Incision Call your doctor if you observe: Fever of 101 or Higher Follow Up Care Please Follow Up With: Wilmer Bernardo MD When: Call [phone] for an appointment Test Results: Test results from this visit will be discussed in further detail at your follow-up appointment, if applicable. Discharge Plan Admission Primary Reason for Your Visit: laser stone Attending Provider: Wilmer Bernardo Primary Care Provider: Robert John Discharge Orders/Prescriptions Prescriptions: Continued ocrelizumab [Ocrevus] 30 mg/mL solution 600 mg IV .COMPLEX Patient Comments: every 6 months Rx Instructions: every 6 months simvastatin 20 mg tablet 20 mg PO QHS sodium bicarbonate 650 mg tablet 650 mg PO BID Patient Comments: TAKE 1 TABLET BY MOUTH TWICE A DAY cholecalciferol (vitamin D3) 1,000 UNIT tablet 5,000 unit PO DAILY Patient Comments: vitamin multivitamin with folic acid 1 TABLET tablet 1 tab PO DAILY Patient Comments: vitamin pantoprazole 40 MG tablet 40 mg PO DAILY lisdexamfetamine 50 mg capsule 50 mg PO DAILY Patient Comments: add potassium citrate 15 MEQ tablet extended release 15 meq PO BID Qty: 60 5RF meclizine 25 mg tablet 25 mg PO DAILY PRN (Reason: Dizziness) Patient Comments: TAKE 1 TABLET BY MOUTH TWICE A DAY NEEDED duloxetine 60 mg capsule,delayed release(DR/EC) 60 mg PO QHS Patient Comments: TAKE 1 CAPSULE BY MOUTH EVERY DAY tamsulosin 0.4 mg capsule 0.4 mg PO BID nitrofurantoin 100 mg capsule 100 mg PO BID Rx Instructions: must administer with a meal/food tizanidine 4 mg tablet 4 mg PO PRN furosemide [Lasix] 40 mg tablet 40 mg PO DAILY guaifenesin [Mucus Relief ER] 1,200 mg Tablet Extended Release 12hr 1,200 mg PO BID PRN (Reason: cough) lisinopril 20 mg tablet 20 mg PO DAILY Patient Comments: TAKE 1 TABLET BY MOUTH EVERY DAY vitamin E 200 unit capsule 400 unit PO DAILY sodium chloride 0.65 % Aerosol,[place] 2 spray NASAL TID PRN PRN (Reason: NASAL DRYNESS) Qty: 100 0RF sennosides-docusate sodium [Stool Softener-Stimulant Laxat] 8.6-50 mg Tablet 2 tab PO BID Qty: 60 0RF albuterol sulfate 2.5 mg /3 mL (0.083 %) solution for nebulization 2.5 mg INHALATION Q4H PRN (Reason: shortness of breath or wheezing) Qty: 180 6RF carvedilol [Coreg] 12.5 mg tablet 12.5 mg PO BID Qty: 180 3RF Rx Instructions: must administer with a meal/food apixaban 5 mg tablet 5 mg PO BID Qty: 180 6RF Referrals / Follow Up: Robert John MD [Primary Care Provider] - Disposition Disposition (needs filled in before D/C Order can be placed): Home, Self Care
[2023-10-03] MEDS: Ensure Plus High Protein 120 ML LIQUID PO (16:09)
[2023-10-03] MEDS: Lactated Ringers 1,000 ML 125 ML IV (20:24)
[2023-10-03] MEDS: APIXABAN 5 MG TABLET PO (22:19)
[2023-10-03] MEDS: Sodium Bicarbonate 650 MG Tablet PO (22:19)
[2023-10-03] MEDS: Atorvastatin Calcium 10 MG Tablet PO (22:19)
[2023-10-03] MEDS: Nitrofurantoin Macrocrystals 100 MG Capsule PO (22:19)
[2023-10-03] MEDS: DULoxetine Hcl 60 MG Capsule PO (22:19)
[2023-10-03] MEDS: Carvedilol 12.5 MG Tablet PO (22:19)
[2023-10-03] MEDS: Tamsulosin HCl 0.4 MG Capsule PO (22:19)
[2023-10-04] VITALS (8 sets, daily range): BP systolic 87–105; BP diastolic 51–67; PULSE 88–99; RESP 16–18; TEMP 36.8–36.9; O2SAT 90–94
[2023-10-04] MEDS: Furosemide 40 MG Tablet PO ×2 (00:26→08:00)
[2023-10-04] MEDS: Lactated Ringers 1,000 ML 15 ML IV (01:21)
[2023-10-04] MEDS: Pantoprazole Sodium 40 MG Tablet PO (07:56)
[2023-10-04] MEDS: Cholecalciferol (Vit D3) 125 MCG CAPSULE (5,000 UNITS) PO (07:57)
[2023-10-04] MEDS: Multivitamins,Therapeutic Tablet 1 TABLET PO (07:57)
[2023-10-04] MEDS: Sodium Bicarbonate 650 MG Tablet PO (07:57)
[2023-10-04] MEDS: Nitrofurantoin Macrocrystals 100 MG Capsule PO (07:57)
[2023-10-04] MEDS: Vitamin E 400 UNITS Capsule PO (07:58)
[2023-10-04] MEDS: APIXABAN 5 MG TABLET PO (07:58)
[2023-10-04] MEDS: Tamsulosin HCl 0.4 MG Capsule PO (08:00)
[2023-10-04] MEDS: Ensure Plus High Protein 120 ML LIQUID PO (08:03)
--- NOTE | 2023-10-04 09:02 | PCM.PN.GU ---
Subjective Subjective Status post laser of a stone in the left kidney probably an infected stone observation overnight to make sure he did okay no issues. Doing well he can go home today with antibiotics and follow-up in my office next week for stent removal Objective Data Objective Data Vital Signs: Vital Signs Temp Pulse Resp BP Pulse Ox O2 Del Method O2 Flow Rate 98.5 F 92 18 105/67 92 Nasal Cannula 2 10/04/23 06:32 10/04/23 06:32 10/04/23 06:32 10/04/23 06:32 10/04/23 07:48 10/04/23 07:48 10/04/23 07:48 Oxygen Flow Rate (L/min) 2 Oxygen Delivery Method Nasal Cannula Weight: 138.799 kg Body Mass Index (BMI) 35.3 Intake & Output: Intake and Output for Last 24 Hours 10/02/23 10/03/23 10/04/23 23:59 23:59 23:59 Intake Total 6.67 / 6.67 795.83 / 795.83 Output Total 1200 / 1200 Balance 1956.67 / 1806.67 -404.17 / -404.17
== END 2023-10-04 10:27 | disposition home or self-care (01) ==
LOC: SDC 14:29 → MS3 14:30
PROVIDERS: Admitting Provider Urology; PCP Internal Medicine; Referring Provider Urology; Visit Provider Urology
PROC: 0TJ98ZZ Inspection of Ureter, Via Natural or Artificial Opening Endoscopic (ICD-10-PCS; CPT 52352; principal; 2023-10-03 11:05)
DX: N20.0 Calculus of kidney (principal); G35 Multiple sclerosis; Z79.01 Long term (current) use of anticoagulants; I10 Essential (primary) hypertension; N28.89 Other specified disorders of kidney and ureter; Z86.16 Personal history of COVID-19; E78.00 Pure hypercholesterolemia, unspecified; Z79.899 Other long term (current) drug therapy; K21.9 Gastro-esophageal reflux disease without esophagitis
CPT/HCPCS: 50980; 52332; 00860; 76000; 96360; 96361; 99221; J7120; C1769; C2617; G0378; J2405

== ENCOUNTER 2023-12-19 07:48 | Outpatient (CLI) | payer MEDICARE, SELFPAY ==
--- OUTSIDE RECORDS SUMMARY | 2023-12-19 07:55 | XMS RPT_ITS | CCD ---
Author Name Unknown Address [address] [place] [address] Organization [facility] Care Team Providers Care Finance Business Manager Name Role Phone Robert Mendoza MD Primary Care Provider ROBERT MENDOZA Attending Unavailable REJI, ROBERT Ballard Referring Unavailable REJI, ROBERT Ballard Primary Care Unavailable MARYURI LANGFORD Referring Unavailable REJI, ROBERT Ballard Primary Care Unavailable OLDERMARYURI Attending Unavailable REJI, ROBERT Ballard Primary Care Unavailable REJI, ROBERT Ballard Attending Unavailable REJI, ROBERT Ballard Primary Care Unavailable REJI, ROBERT Ballard Attending Unavailable REJI, ROBERT Ballard Primary Care Unavailable ROBERT MENDOZA Referring Unavailable ROBERT MENDOZA Primary Care Unavailable Medications Current Medications Medication Drug Class(es) Dates Sig (Normalized) Sig (Original) ascorbic acid 500 mg oral tablet (5 sources) Vitamin C End: 11-06-2022 take 1 tablet by mouth once daily ascorbic acid, vitamin C, (VITAMIN C) 500 mg tablet Take 500 mg by mouth once daily. 0 11/06/2022 Discontinued (Discontinued by Patient) Completed/Discontinued Medications Medication Drug Class(es) Dates Sig (Normalized) Sig (Original) apixaban 5 mg oral tablet (19 sources) Factor Xa Inhibitor Start: 03-13-2020 take 1 tablet by mouth twice daily apixaban (ELIQUIS) 5 mg tab(s) Indications: Chronic atrial fibrillation (HCC) Take 1 tablet by mouth twice daily. 180 tablet 3 03/13/2020 Active Problems Active Problems Problem Classification Problem Date Documented Date Episodic/Chronic Acute and unspecified renal failure (3 sources) Acute injury of kidney; Translations: [Acute kidney failure, unspecified] Onset: 09-03-2023 09-03-2023 Episodic Anxiety disorders (19 sources) Anxiety disorder; Translations: [Anxiety disorder, unspecified] Onset: 10-21-2017 05-19-2019 Chronic Cardiac and circulatory congenital anomalies (19 sources) Persistent ostium secundum; Translations: [Atrial septal defect] Onset: 05-19-2019 05-19-2019 Chronic Cardiac dysrhythmias (13 sources) Paroxysmal atrial fibrillation; Translations: [Paroxysmal atrial fibrillation] Onset: 10-01-2017 Chronic Chronic kidney disease (20 sources) Chronic kidney disease stage 3A ; Translations: [Stage 3a chronic kidney disease] Onset: 12-14-2020 12-14-2020 Chronic Congestive heart failure; nonhypertensive (3 sources) Symptomatic congestive heart failure; Translations: [Unspecified diastolic (congestive) heart failure] Onset: 09-03-2023 09-03-2023 Chronic Coronary atherosclerosis and other heart disease (20 sources) Coronary atherosclerosis; Translations: [Atherosclerotic heart disease of [place] coronary artery without angina pectoris] Onset: 10-21-2017 05-19-2019 Chronic Esophageal disorders (20 sources) Gastroesophageal reflux disease without esophagitis; Translations: [Gastro-esophageal reflux disease without esophagitis] Onset: 01-08-2019 01-08-2019 Chronic Essential hypertension (20 sources) Benign essential hypertension; Translations: [Essential (primary) hypertension] Onset: 10-11-2005 Chronic Immunizations and screening for infectious disease (1 source) Vaccination needed; Translations: [Encounter for immunization] Episodic Malaise and fatigue (20 sources) Chronic fatigue syndrome; Translations: [Chronic fatigue, unspecified] Onset: 10-21-2017 Chronic Mood disorders (20 sources) Recurrent major depression; Translations: [Major depressive disorder, recurrent, unspecified] Onset: 01-08-2019 01-08-2019 Chronic Multiple sclerosis (20 sources) Multiple sclerosis; Translations: [Multiple sclerosis] Onset: 10-11-2005 Chronic Nutritional deficiencies (20 sources) Vitamin D deficiency; Translations: [Vitamin D deficiency, unspecified] Onset: 10-21-2017 05-19-2019 Chronic Open wounds of extremities (1 source) Open wound of lower limb; Translations: [Unspecified open wound, unspecified lower leg, subsequent encounter] Episodic Other diseases of bladder and urethra (19 sources) Neurogenic bladder; Translations: [Neuromuscular dysfunction of bladder, unspecified] Onset: 05-29-2015 05-29-2015 Chronic Other nutritional; endocrine; and metabolic disorders (7 sources) Hypercalcemia; Translations: [Hypercalcemia] Onset: 06-15-2019 06-15-2019 Chronic Paralysis (20 sources) Left hemiparesis; Translations: [Hemiplegia, unspecified affecting left nondominant side] Onset: 12-14-2020 Chronic Residual codes; unclassified (20 sources) Dependence on wheelchair; Translations: [Dependence on wheelchair] Onset: 10-21-2017 05-19-2019 Chronic Residual codes; unclassified (20 sources) Obstructive sleep apnea syndrome; Translations: [Obstructive sleep apnea (adult) (pediatric)] Onset: 10-21-2017 05-19-2019 Chronic Past or Other Problems Problem Classification Problem Date Documented Da te Episodic/Chronic Cancer of bladder (19 sources) H/O: malignant neoplasm; Translations: [Personal history of malignant neoplasm of bladder] Onset: 10-21-2017 05-19-2019 Episodic Conditions associated with dizziness or vertigo (20 sources) Dizziness; Translations: [Dizziness and giddiness] Onset: 02-20-2022 Episodic Other aftercare (19 sources) Long-term current use of anticoagulant; Translations: [channel layer (current) use of anticoagulants] Onset: 12-22-2019 12-22-2019 Episodic Other diseases of kidney and ureters (19 sources) Hydronephrosis; Translations: [Unspecified hydronephrosis] Onset: 12-14-2020 12-14-2020 Episodic Other screening for suspected conditions (not mental disorders or infectious disease) (4 sources) Patient encounter status; Translations: [Encounter for screening for diabetes mellitus] Onset: 11-06-2022 Episodic Pulmonary heart disease (19 sources) H/O: pulmonary embolus; Translations: [Personal history of pulmonary embolism] Onset: 11-12-2017 11-12-2017 Episodic Respiratory failure; insufficiency; arrest (adult) (3 sources) Acute respiratory failure; Translations: [Acute respiratory failure with hypoxia] Onset: 10-21-2017 09-03-2023 Episodic Urinary tract infections (19 sources) Recurrent urinary tract infection; Translations: [Urinary tract infection, site not specified] Onset: 02-21-2016 02-21-2016 Episodic Results Test Name Value Interpretation Reference Range Facil ity Vital Signs Date Time Vital Sign Value Performing Clinician Faci lity 05-09-2023 08:51-0400 Diastolic blood pressure 80 mm[Hg] Robert Mendoza MD Work Phone: [facility] 05-09-2023 08:51-0400 Heart rate 80 /min Robert Mendoza MD Work Phone: [facility] 05-09-2023 08:51-0400 Respiratory rate 16 /min Robert Mendoza MD Work Phone: [facility] 05-09-2023 08:51-0400 Systolic blood pressure 110 mm[Hg] Robert Mendoza MD Work Phone: [facility] 02-26-2023 09:24-0400 Diastolic blood pressure 68 mm[Hg] Robert Mendoza MD Work Phone: [facility] 02-26-2023 09:24-0400 Heart rate 92 /min Robert Mendoza MD Work Phone: [facility] 02-26-2023 09:24-0400 Respiratory rate 16 /min Robert Mendoza MD Work Phone: [facility] 02-26-2023 09:24-0400 Systolic blood pressure 120 mm[Hg] Robert Mendoza MD Work Phone: [facility] 11-06-2022 08:00-0500 Body temperature 97.39 [degF] Amryuri Older 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 Work Phone: [facility] 11-06-2022 08:00-0500 Diastolic blood pressure 78 mm[Hg] Maryuri Older 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 Work Phone: [facility] 11-06-2022 08:00-0500 Heart rate 88 /min Maryuri Older 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 Work Phone: [facility] 11-06-2022 08:00-0500 Respiratory rate 16 /min Maryuri Older 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 Work Phone: [facility] 11-06-2022 08:00-0500 Systolic blood pressure 126 mm[Hg] Maryuri Older 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 Work Phone: [facility] 02-20-2022 09:38-0400 Body temperature 96.4 [degF] Robert Mendoza MD Work Phone: [facility] 02-20-2022 09:38-0400 Diastolic blood pressure 74 mm[Hg] Robert Mendoza MD Work Phone: [facility] 02-20-2022 09:38-0400 Heart rate 72 /min Robert Mendoza MD Work Phone: [facility] 02-20-2022 09:38-0400 Respiratory rate 16 /min Robert Mendoza MD Work Phone: [facility] 02-20-2022 09:38-0400 Systolic blood pressure 124 mm[Hg] Robert Mendoza MD Work Phone: [facility] Encounters Encounter Date Encounter Type Care Provider Facility Start: 09-16-2023 Telephone encounter Robert hutchins MD Work Phone: [facility] Procedures Date Procedure Procedure Detail Performing Clinician Start: 03-14-2023 Lipid 1996 panel - S nicole or Plasma Robert Mendoza MD Work Phone: Start: 06-01-2018 Colonoscopy Robert Connell MD Work Phone: Start: 01-17-2016 Colonoscopy Robert Connell MD Work Phone: Plan of Treatment Date Care Activity Detail Author Start: 02-21-2032 Urine microalbumin profile [facility] Start: 06-01-2028 Colonoscopy COLONOSCOPY [facility] Start: 06-01-2028 COLORECTAL CANCER SCREENING COLORECTAL CANCER SCREENING [facility] Start: 03-14-2028 Lipid 1996 panel - Serum or Plasma Lipid Screening [facility] Start: 03-14-2028 LIPID SCREEN LIPID SCREEN [facility] Start: 03-14-2028 PROSTATE CANCER SCREENING DISCUSSION PROSTATE CANCER SCREENING DISCUSSION [facility] Start: 02-06-2027 LIPID SCREEN LIPID SCREEN [facility] Start: 03-14-2026 DIABETES SCREEN DIABETES SCREEN [facility] Start: 03-14-2026 Diabetes Screening Diabetes Screening [facility] Start: 01-17-2026 Colonoscopy COLONOSCOPY [facility] Start: 01-17-2026 COLORECTAL CANCER SCREENING COLORECTAL CANCER SCREENING [facility] Start: 11-06-2025 DIABETES SCREEN DIABETES SCREEN [facility] Start: 06-15-2025 Pneumococcal Vaccine: 65+ (3 - PPSV23 or PCV20) Pneumococcal Vaccine: 65+ (3 - PPSV23 or PCV20) [facility] Start: 06-15-2025 PNEUMOCOCCAL: 65+ (#3) PNEUMOCOCCAL: 65+ (#3) [facility] Start: 06-15-2025 PNEUMOCOCCAL: 65+ (2 - PPSV23 or PCV20) PNEUMOCOCCAL: 65+ (2 - PPSV23 or PCV20) [facility] Start: 06-15-2025 PNEUMOCOCCAL: 65+ (3 - PPSV23 if available, else PCV20) PNEUMOCOCCAL: 65+ (3 - PPSV23 if available, else PCV20) [facility] Start: 06-15-2025 PNEUMOCOCCAL: 65+ (3 - PPSV23 or PCV20) PNEUMOCOCCAL: 65+ (3 - PPSV23 or PCV20) [facility] Start: 02-06-2025 DIABETES SCREEN DIABETES SCREEN [facility] Start: 09-03-2024 Annual PCP Team Chronic Disease Visit Annual PCP Team Chronic Disease Visit [facility] Start: 05-09-2024 ANNUAL PCP TEAM CHRONIC DISEASE VISIT ANNUAL PCP TEAM CHRONIC DISEASE VISIT [facility] Start: 03-14-2024 Hepatitis B surface antibody level LDL CHOLESTEROL [facility] Start: 03-14-2024 SERUM CREATININE SERUM CREATININE [facility] Start: 02-27-2024 ANNUAL PCP TEAM CHRONIC DISEASE VISIT ANNUAL PCP TEAM CHRONIC DISEASE VISIT [facility] Start: 02-27-2024 BP CONTROLLED (<130/80) BP CONTROLLED (<130/80) [facility] Start: 11-08-2023 End: 01-08-2024 Comprehensive metabolic 2000 panel - Serum or Plasma COMP METABOLIC PANEL Lab Routine Stage 3a chronic kidney disease (HCC) Expected: 11/08/2023, Expires: 01/08/2024 [facility] Work Phone: Immunizations Immunization Date Immunization Notes Care Provider Leia [email or web address] 11-06-2022 zoster vaccine recombinant Aura Older 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 Work Phone: [facility] Work Phone: 09-25-2022 influenza virus vacc ine, unspecified formulation Robert Mendoza MD Work Phone: [facility] 02-20-2022 tetanus toxoid, redu leonardo diphtheria toxoid, and acellular pertussis vaccine, adsorbed Robert Mendoza MD Work Phone: [facility] Work Phone: 02-20-2022 zoster vaccine recombinant Robert Mendoza MD Work Phone: [facility] Work Phone: 08-31-2021 influenza, injectabl e, quadrivalent, contains preservative Robert Mendoza MD Work Phone: [facility] 02-07-2021 COVID-19 vaccine, fu ll dose (MODERNA) Robert Mendoza MD Work Phone: [facility] 01-11-2021 COVID-19 vaccine, fu ll dose (MODERNA) Robert Mendoza MD Work Phone: [facility] 09-07-2020 influenza, seasonal, injectable Robert Mendoza MD Work Phone: [facility] 09-07-2020 influenza, seasonal, injectable, preservative free Robert Mendoza MD Work Phone: [facility] Work Phone: 06-15-2020 pneumococcal polysaccharide vaccine, 23 valent Robert Mendoza MD Work Phone: [facility] 09-07-2019 influenza, seasonal, injectable, preservative free Robert Mendoza MD Work Phone: [facility] Work Phone: 09-24-2018 influenza, injectabl e, quadrivalent, contains preservative Robert Mendoza MD Work Phone: [facility] 08-19-2017 influenza, seasonal, injectable, preservative free Robert Mendoza MD Work Phone: [facility] 10-07-2016 influenza, seasonal, injectable Robert Mendoza MD Work Phone: [facility] 11-06-2015 pneumococcal conjuga te vaccine, 13 valent Robert Mendoza MD Work Phone: [facility] 10-05-2015 influenza, injectabl e, quadrivalent, contains preservative Robert Mendoza MD Work Phone: [facility] Work Phone: 09-25-2015 influenza, seasonal, injectable, preservative free Robert Mendoza MD Work Phone: [facility] Work Phone: 09-17-2015 pneumococcal conjuga te vaccine, 13 valent Robert Mendoza MD Work Phone: [facility] 10-13-2014 influenza, seasonal, injectable Robert Mendoza MD Work Phone: [facility] 08-24-2014 influenza, seasonal, injectable Robert Mendoza MD Work Phone: [facility] 08-24-2014 influenza, seasonal, injectable, preservative free Robert Mendoza MD Work Phone: [facility] Work Phone: 10-08-2013 influenza virus vacc ine, unspecified formulation Robert Mendoza MD Work Phone: [facility] 08-22-2012 influenza virus vacc ine, unspecified formulation Robert Mendoza MD Work Phone: [facility] Work Phone: 11-01-2011 influenza virus vacc ine, unspecified formulation Robert Mendoza MD Work Phone: [facility] 11-06-2009 novel influenza-H1N1 -09, all formulations Robert Mendoza MD Work Phone: [facility] Work Phone: 11-03-2009 tetanus and diphther ia toxoids, adsorbed, preservative free, for adult use (2 Lf of tetanus toxoid and 2 Lf of diphtheria toxoid) Robert Mendoza MD Work Phone: [facility] Work Phone: Payers Date Payer Category Payer Medicare AETNA MEDICARE A ETNA MEDICARE PPO [id number] 2021-Present [phone] [address] [place] [address] PPO [id number] 2021 Medicare AETNA MEDICARE A ETNA MEDICARE PPO [id number] 2021-Present [phone] [address] [place] [address] PPO [id number] 2021 Medicare [id number] Social History Date Type Detail Facility Start: 02-12-2018 End: 02-26-2023 Tobacco smoking status NHIS Never smoked tobacco [facility] Work Phone: Start: 08-31-2021 End: 05-09-2023 Alcohol intake Current non-drinker of alcohol (finding) [facility] Start: 12-12-2020 End: 11-02-2022 History SDOH Alcohol Frequency 1 [facility] Start: 12-12-2020 History SDOH Alcohol Std Drinks 98 [facility] Start: 12-12-2020 End: 11-02-2022 History SDOH Social Connections Phone 4 [facility] Start: 12-12-2020 End: 11-02-2022 History SDOH Social Connections Get Together 2 [facility] Start: 12-12-2020 End: 11-02-2022 History SDOH Social Connections Living 3 [facility] Start: 12-12-2020 End: 11-02-2022 History SDOH Physical Activity DPW 0 [facility] Start: 12-12-2020 End: 11-02-2022 History SDOH Financial 5 [facility] Start: 12-12-2020 Education 12 [facility] Start: 1955 Sex Assigned At Male [facility] Start: 02-10-2022 End: 02-20-2022 Exposure to SARS-CoV-2 (event) Not sure [facility] Work Phone: Start: 02-12-2018 End: 02-26-2023 Tobacco use and exposure Smokeless tobacco non-user [facility] Start: 11-02-2022 End: 05-09-2023 History of Social function [facility] Start: 11-02-2022 End: 05-09-2023 Social connection and isolation panel [facility] Do you belong to any clubs or organizations such as gnosticist groups, unions, fraternal or athletic groups, or school groups? No [facility] Are you now , , , , never or living with a partner? [facility] How often to you hav e a drink containing alcohol? Never [facility] How many standard dr inks containing alcohol do you have on a typical day? Patient does not drink [facility] How hard is it for y ou to pay for the very basics like food, housing, medical care, and heating Not very hard [facility] Do you feel stress - tense, restless, nervous, or anxious, or unable to sleep at night because your mind is troubled all the time - these days [OSQ] To some extent [facility] (I/We) worried wheroslyn er (my/our) food would run out before (I/we) got money to buy more. Never true [facility] Start: 01-18-2022 Gender identity Identifies as male gender (finding) [facility] Start: 01-18-2022 Sexual orientation Heterosexual (finding) [facility] Clinical Notes 05-19-2019 to 09-17-2023 Telephone Encounter - Maritza Muro LPN - 09/17/2023 3:28 PM EDTTelephone Encounter - Robert Mendoza MD - 09/17/2023 2:06 PM EDTTelephone Encounter - Alexander Kearney Ma - 09/10/2023 1:42 PM EDT Note Date & Type Note Facility 09-17-2023 Miscellaneous Notes Sakshi/PRIYANKA notified. Maritza Muro LPN Continue fluid restriction and sodium restriction per discharge instructions. Pt was put on fluid restrictions while he was at [facility] last month. Nurse Sakshi states pt is still following this & is asking if pt is to continue restricting fluids? Pt has a kidney stone & having surgery to remove on 10/03/23. Sakshi will not be avail tomorrow, call the office at [phone]. She is aware pcp will return to the office 09/17/23. Dayanna Alanis LPN documented in this encounter [facility] 09-10-2023 Miscellaneous Notes David notified. Okay for orders below Aura Langford APRN.SPRAY DRIER OPERATOR David RN with [facility] calls to request a continuation of nursing frequency order for once weekly x 2 more weeks for further monitoring. David requests order be called to [phone]. Deedee Mederos RN documented in this encounter [facility] 09-03-2023 Note HNO ID: [id number] Author: Robert Mendoza MD Service: ? Author Type: Physician Type: Progress Notes Filed: 09/04/2023 7:11 AM Note Text: This note was created using Selftraderiter. Subjective Patient presents with: [facility] F/U Dusty Barney is a 68 year old male. He was admitted 08/18-08/26 for acute respiratory failure, aspiration pneumonia, CHF with preserved EF, LUPE, chronic hypercapnia. MS was felt to be stable. He continued on anticoagulation for atrial fibrillation and history of PE. He passed his swallow evaluation, and was on his usual diet with instructions to avoid aspiration. He was now on furosemide. HCTZ was discontinued. Edema was back to baseline. He was so far unable to wean off oxygen, unlike his recent admissions He was tolerating his BiPAP now and had pulmonary follow up with Dr. Ni. Cardiology follow up was a few months out. His renal function recovered. He saw his neurologist Dr. Davis yesterday, and no changes were made. He had been admitted 07/29-07/31 for Covid and UTI. He was admitted again 08/11-08/13 for LUPE, hypotension, hypoxia. Review of Systems Constitutional: Negative for chills, fatigue and fever. HENT: Negative for congestion. Respiratory: Positive for cough. Negative for shortness of breath and wheezing. Cardiovascular: Positive for leg swelling. Negative for chest pain and palpitations. Gastrointestinal: Negative for diarrhea, nausea and vomiting. Genitourinary: Negative for difficulty urinating. Skin: Negative for wound. Neurological: Positive for syncope. Negative for dizziness and headaches. ACTIVE PROBLEM LIST Essential Hypertension, Benign Multiple Sclerosis (Hcc) Neurogenic Bladder Recurrent Uti Paroxysmal Atrial Fibrillation (Hcc) History of Pulmonary Embolus (Pe) Gerd Without Esophagitis Recurrent Major Depressive Disorder (Hcc) Anxiety Disorder, Unspecified Athscl Heart Disease of [place] Coronary Artery W/O Ang Pctrs Chronic Fatigue Syndrome Dependence On Wheelchair Obstructive Sleep Apnea Syndrome Ostium Secundum Type Atrial Septal Defect Personal History of Malignant Neoplasm of Bladder Vitamin D Deficiency Current Use of Box Toe Buffer Anticoagulation Stage 3a Chronic Kidney Disease (Hcc) Hydronephrosis of Left Kidney Left Hemiparesis (Hcc) Dizziness, Nonspecific Current Outpatient Medications Medication Sig apixaban (ELIQUIS) 5 mg tab(s) Take 1 tablet by mouth twice daily. carvedilol (COREG) 12.5 mg tablet Take 1 tablet by mouth twice daily. Cholecalciferol, Vitamin D3, 1,000 unit cap Take 1 capsule by mouth once daily. COMPOUNDED PRESCRIPTION Inflatable Emergency Lift Chair COMPOUNDED PRESCRIPTION Power wheelchair Dx multiple sclerosis with severe lower extremity weakness DAILY MULTIVITAMIN TAB Take one(1) tablet daily. DULoxetine (CYMBALTA) 60 mg capsule Take 1 capsule by mouth once daily. furosemide (LASIX) 40 mg tablet Take 40 mg by mouth two times a day. INV OCRELIZUMAB 600 mg in NaCl 0.9% 500 mL Inject 600 mg intravenously once every 6 months. Per NEUROLOGY. lisdexamfetamine (VYVANSE) 50 mg capsule Take 1 capsule by mouth once daily. lisinopril (ZESTRIL) 20 mg tablet Take 1 tablet by mouth once daily. meclizine (ANTIVERT) 25 mg tab Take 1 tablet by mouth twice daily as needed. pantoprazole DR (PROTONIX) 40 mg tablet Take 1 tablet by mouth once daily. Potassium Citrate 15 mEq TbER potassium citrate Potassium Citrate Active 15 MEQ TWICE A DAY February 04, 2020 1:11pm 02-04-2020 [facility] ([id number]) Sennosides 8.6 mg cap Take by mouth. simvastatin (ZOCOR) 20 mg tablet Take 20 mg by mouth daily at bedtime. sodium bicarbonate 650 mg tablet Take 650 mg by mouth twice daily. tamsulosin (FLOMAX) 0.4 mg Take 0.4 mg by mouth twice daily. tiZANidine (ZANAFLEX) 4 mg tablet Take 1 tablet by mouth every 8 hours as needed (muscle spasms). VITAMIN E 1,000 UNIT CAP Take one(1) tablet daily. No current facility-administered medications for this visit. Objective BP 128/80 (BP Site: Right Arm, BP Position: Sitting, BP Cuff Size: Large Adult) Pulse (!) 52 Resp 16 SpO2 (!) 62% Physical Exam Constitutional: General: He is not in acute distress. Comments: On Portable O2 via NC. HENT: Head: Normocephalic. Eyes: Conjunctiva/sclera: Conjunctivae normal. Cardiovascular: Rate and Rhythm: Regular rhythm. Bradycardia present. Heart sounds: No murmur heard. No gallop. Pulmonary: Breath sounds: Examination of the right-lower field reveals decreased breath sounds and rales. Examination of the left-lower field reveals decreased breath sounds and rales. Decreased breath sounds and rales present. No wheezing or rhonchi. Abdominal: General: There is distension. Palpations: Abdomen is soft. Tenderness: There is no abdominal tenderness. Musculoskeletal: Right lower le+ Pitting Edema present. Left lower le+ Pitting Edema present. Neurolog (more content not included)... [facility] 09-01-2023 Miscellaneous Notes Third attempt to reach patient and by phone with no answer. Line rang several times and then discontinued x2, unable to leave VM. message sent requesting for patient/ to call office. HAI Mccann TC to patient and - unable to reach x2. Will try again later. Please call for update on BM Aura Langford APRN.VERNON Charlette from [facility] calling patient was discharged from [facility] yesterday, had respiratory failure, aspiration pneumonia. Plan for prison visits 1 visit this week, then 2 visits weekly for 1 week, then 1 visit weekly for 1 week, need verbal ok for visits. Patient has constipation was started on senna, last bowel movement was 7 days ago. said with his MS he can go several days with no BM but not usually 7 days. Nurse said he has bowel sounds. Patient blood pressure was 92/65, patient had taken all of his medications this morning at 9 am. Patient was discharged on 2 liters oxygen continuously his SPO2 was 90% and patient could not tolerate wearing his BIPAP for more than a few hours last night. Nurse had notified his Pulmonary Dr Ni. Please advise documented in this encounter [facility] 09-01-2023 Miscellaneous Notes Ute HERNANDEZ from [facility] calling with POC for pt. OT will be seeing pt 2x per week for 3 wks then 1x per week for 1 wk with focus on strengthening and transfers. BP this morning was 108/95. Nurse will be going out later today. Just FYI. No need to call back unless concerns or changes. documented in this encounter [facility] 08-29-2023 Miscellaneous Notes Lobo with [facility] Physical Therapy calling with plan of care for patient: Will see patient 2 times per week for 4 weeks for functional mobility. No call back needed. Staci Porras RN documented in this encounter [facility] 08-18-2023 Miscellaneous Notes Lisa from [facility] calls to report that patient's oxygen levels have been in the 80s. They highest reading that Lisa has been able to get today is 89. Patient has been having issues with this all weekend. Patient has been using CPAP more as well as having breathing treatments around the clock. Patient is now feeling more short of breath. Advised Lisa that patient should go to ED to be evaluated since respiratory status has not improved and is getting worse. Lisa voiced understanding. Lisa states family will take patient to ED to be evaluated. Clarissa Peña RN documented in this encounter [facility] 08-15-2023 Miscellaneous Notes Called and left detailed message on secure VM with Provider message below. If questions Glenna to call office back and speak with [facility] Triage Nurse. Zuleima Leal Ma Helder Langford APRN.CNP Glenna- Nurse- [facility], reporting POC: she did start of care, and plans to see patient for disease and medication education 1 x week for 1 week, then 2 times week for 3 week. Please phone Glenna with verbal approval: [phone] documented in this encounter [facility] 08-13-2023 Miscellaneous Notes Call placed to Migdalia with [facility] and verbal ok given for HH, SN, PT, OT orders. Deedee Mederos RN Heledr Langford APRN.VERNON Migdalia with [facility] calls to see if provider will follow orders for SN, PT, and OT. Patient to be discharging from [facility] tomorrow 08/14/2023 after being treated for UTI and pneumonia. Please call Migdalia back at [phone]. Ok to leave a message on secure [employer]. Deedee Mederos RN documented in this encounter [facility] 07-08-2023 Miscellaneous Notes Pcp rec'd via fax from [facility] care enhancing mobility for pt. He completed these and they have been faxed back to [facility]. documented in this encounter [facility] 05-13-2023 Miscellaneous Notes Patient has been identified by name and date of : Yes Patient phones for refill(s): Requested Prescriptions Pending Prescriptions Disp Refills DULoxetine (CYMBALTA) 60 mg capsule 90 capsule 3 Sig: Take 1 capsule by mouth once daily. Date of last office visit in primary care: 05/09/2023 Medicare Wellness: 11/12/2023 Last 2 Encounter Wt Readings: Date: Wt: 12/14/2020 117.9 kg (260 lb) 01/08/2019 111.1 kg (245 lb) Previous labs/tests for medication: Not applicable Please advise. Thank you. Maritza Muro LPN documented in this encounter [facility] 05-09-2023 Note HNO ID: [id number] Author: Robert Mendoza MD Service: ? Author Type: Physician Type: Progress Notes Filed: 05/09/2023 9:16 AM Note Text: This note was created using Adjug. Subjective Dusty Barney is a 67 year old male here with spouse. Conditions were stable. He had no recent urinary tract infection. We reviewed labs from February. He was still waiting for his new wheelchair that can elevate his legs to help swelling. His specialists: Neurology: Dr. Wolff for MS Cardiology: [facility] for [facility]-fib Urology: Dr. Bernardo chronic Kidney Stones and bladder cancer Pulmonology: Dr. Ni for [facility]. Dr. Okeefe: Optometry. Review of Systems Constitutional: Negative for appetite change and fever. Respiratory: Negative for cough and shortness of breath. Cardiovascular: Positive for leg swelling. Negative for chest pain and palpitations. Skin: Negative for wound. Neurological: Positive for light-headedness. Psychiatric/Behavioral: Negative. ACTIVE PROBLEM LIST Essential Hypertension, Benign Multiple Sclerosis (Hcc) Neurogenic Bladder Recurrent Uti Paroxysmal Atrial Fibrillation (Hcc) History of Pulmonary Embolus (Pe) Gerd Without Esophagitis Recurrent Major Depressive Disorder (Hcc) Anxiety Disorder, Unspecified Athscl Heart Disease of [place] Coronary Artery W/O Ang Pctrs Chronic Fatigue Syndrome Dependence On Wheelchair Obstructive Sleep Apnea Syndrome Ostium Secundum Type Atrial Septal Defect Personal History of Malignant Neoplasm of Bladder Vitamin D Deficiency Current Use of Mcc Anticoagulation Stage 3a Chronic Kidney Disease (Hcc) Hydronephrosis of Left Kidney Left Hemiparesis (Hcc) Dizziness, Nonspecific Social History Tobacco Use Smoking status: Never Smokeless tobacco: Never Vaping Use Vaping Use: Never used Substance Use Topics Alcohol use: No Drug use: No Current Outpatient Medications Medication Sig meclizine (ANTIVERT) 25 mg tab Take 1 tablet by mouth twice daily as needed. lisinopril (ZESTRIL) 20 mg tablet Take 1 tablet by mouth once daily. hydroCHLOROthiazide 12.5 mg capsule Take 1 capsule by mouth once daily. pantoprazole DR (PROTONIX) 40 mg tablet Take 1 tablet by mouth once daily. DULoxetine (CYMBALTA) 60 mg capsule Take 1 capsule by mouth once daily. tiZANidine (ZANAFLEX) 4 mg tablet Take 1 tablet by mouth every 8 hours as needed (muscle spasms). tamsulosin (FLOMAX) 0.4 mg Take 0.4 mg by mouth twice daily. INV OCRELIZUMAB 600 mg in NaCl 0.9% 500 mL Inject 600 mg intravenously once every 6 months. Per NEUROLOGY. Potassium Citrate 15 mEq TbER potassium citrate Potassium Citrate Active 15 MEQ TWICE A DAY February 04, 2020 1:11pm 02-04-2020 [facility] ([id number]) sodium bicarbonate 650 mg tablet Take 650 mg by mouth twice daily. apixaban (ELIQUIS) 5 mg tab(s) Take 1 tablet by mouth twice daily. carvedilol (COREG) 12.5 mg tablet Take 1 tablet by mouth twice daily. simvastatin (ZOCOR) 20 mg tablet Take 20 mg by mouth daily at bedtime. Cholecalciferol, Vitamin D3, 1,000 unit cap Take 1 capsule by mouth once daily. lisdexamfetamine (VYVANSE) 50 mg capsule Take 1 capsule by mouth once daily. DAILY MULTIVITAMIN TAB Take one(1) tablet daily. VITAMIN E 1,000 UNIT CAP Take one(1) tablet daily. COMPOUNDED PRESCRIPTION Power wheelchair Dx multiple sclerosis with severe lower extremity weakness COMPOUNDED PRESCRIPTION Inflatable Emergency Lift Chair No current facility-administered medications for this visit. Objective BP 110/80 Pulse 80 Resp 16 Physical Exam Constitutional: General: He is not in acute distress. Comments: On Motorized WC. Cardiovascular: Rate and Rhythm: Normal rate and regular rhythm. Heart sounds: No murmur heard. No gallop. Pulmonary: Effort: No respiratory distress. Breath sounds: No wheezing or rales. Musculoskeletal: Right lower le+ Pitting Edema present. Left lower le+ Pitting Edema present. Psychiatric: Mood and Affect: Mood normal. Test results pertinent to today's visit were reviewed and discussed with the patient. Assessment and Plan 1. Dizziness, nonspecific - ICD9: 780.4, ICD10: R42 (primary diagnosis) Chronic and stable. 2. Stage 3a chronic kidney disease (HCC) - ICD9: 585.3, ICD10: N18.31 - eGFR: Stable - Counseled on avoiding NSAIDs, adequate hydration - COMP METABOLIC PANEL 3. Athscl heart disease of [place] coronary artery w/o ang pctrs - ICD9: 414.01, ICD10: I25.10 Stable. 4. Essential hypertension, benign - ICD9: 401.1, ICD10: I10 - Controlled 5. Obstructive sleep apnea syndrome - ICD9: 327.23, ICD10: G47.33 Using and benefiting from regular CPAP use. Robert Mendoza MD [facility] 05-09-2023 Instructions Robert Mendoza MD - 05/09/2023 9:10 AM EDT FASTING BLOOD CHEMISTRY IN 6 MONTHS. COPY OF ADVANCED DIRECTIVE. documented in this encounter [facility] 05-09-2023 History of Presen t illness Narrative This note was created using Adjug. Subjective Dusty Barney is a 67 year old male here with spouse. Conditions were stable. He had no recent urinary tract infection. We reviewed labs from February. He was still waiting for his new wheelchair that can elevate his legs to help swelling. His specialists: Neurology: Dr. Wolff for MS Cardiology: [facility] for [facility]-fib Urology: Dr. Bernardo chronic Kidney Stones and bladder cancer Pulmonology: Dr. Ni for [facility]. Dr. Okeefe: Optometry. Review of Systems Constitutional: Negative for appetite change and fever. Respiratory: Negative for cough and shortness of breath. Cardiovascular: Positive for leg swelling. Negative for chest pain and palpitations. Skin: Negative for wound. Neurological: Positive for light-headedness. Psychiatric/Behavioral: Negative. ACTIVE PROBLEM LIST Essential Hypertension, Benign Multiple Sclerosis (Hcc) Neurogenic Bladder Recurrent Uti Paroxysmal Atrial Fibrillation (Hcc) History of Pulmonary Embolus (Pe) Gerd Without Esophagitis Recurrent Major Depressive Disorder (Hcc) Anxiety Disorder, Unspecified Athscl Heart Disease of [place] Coronary Artery W/O Ang Pctrs Chronic Fatigue Syndrome Dependence On Wheelchair Obstructive Sleep Apnea Syndrome Ostium Secundum Type Atrial Septal Defect Personal History of Malignant Neoplasm of Bladder Vitamin D Deficiency Current Use of Mcc Anticoagulation Stage 3a Chronic Kidney Disease (Hcc) Hydronephrosis of Left Kidney Left Hemiparesis (Hcc) Dizziness, Nonspecific Social History Tobacco Use Smoking status: Never Smokeless tobacco: Never Vaping Use Vaping Use: Never used Substance Use Topics Alcohol use: No Drug use: No Current Outpatient Medications Medication Sig meclizine (ANTIVERT) 25 mg tab Take 1 tablet by mouth twice daily as needed. lisinopril (ZESTRIL) 20 mg tablet Take 1 tablet by mouth once daily. hydroCHLOROthiazide 12.5 mg capsule Take 1 capsule by mouth once daily. pantoprazole DR (PROTONIX) 40 mg tablet Take 1 tablet by mouth once daily. DULoxetine (CYMBALTA) 60 mg capsule Take 1 capsule by mouth once daily. tiZANidine (ZANAFLEX) 4 mg tablet Take 1 tablet by mouth every 8 hours as needed (muscle spasms). tamsulosin (FLOMAX) 0.4 mg Take 0.4 mg by mouth twice daily. INV OCRELIZUMAB 600 mg in NaCl 0.9% 500 mL Inject 600 mg intravenously once every 6 months. Per NEUROLOGY. Potassium Citrate 15 mEq TbER potassium citrate Potassium Citrate Active 15 MEQ TWICE A DAY 60 February 04, 2020 1:11pm 02-04-2020 [facility] ([id number]) sodium bicarbonate 650 mg tablet Take 650 mg by mouth twice daily. apixaban (ELIQUIS) 5 mg tab(s) Take 1 tablet by mouth twice daily. carvedilol (COREG) 12.5 mg tablet Take 1 tablet by mouth twice daily. simvastatin (ZOCOR) 20 mg tablet Take 20 mg by mouth daily at bedtime. Cholecalciferol, Vitamin D3, 1,000 unit cap Take 1 capsule by mouth once daily. lisdexamfetamine (VYVANSE) 50 mg capsule Take 1 capsule by mouth once daily. DAILY MULTIVITAMIN TAB Take one(1) tablet daily. VITAMIN E 1,000 UNIT CAP Take one(1) tablet daily. COMPOUNDED PRESCRIPTION Power wheelchair Dx multiple sclerosis with severe lower extremity weakness COMPOUNDED PRESCRIPTION Inflatable Emergency Lift Chair No current facility-administered medications for this visit. Objective BP 110/80 Pulse 80 Resp 16 Physical Exam Constitutional: General: He is not in acute distress. Comments: On Motorized WC. Cardiovascular: Rate and Rhythm: Normal rate and regular rhythm. Heart sounds: No murmur heard. No gallop. Pulmonary: Effort: No respiratory distress. Breath sounds: No wheezing or rales. Musculoskeletal: Right lower le+ Pitting Edema present. Left lower le+ Pitting Edema present. Psychiatric: Mood and Affect: Mood normal. Test results pertinent to today's visit were reviewed and discussed with the patient. Assessment and Plan 1. Dizziness, nonspecific - ICD9: 780.4, ICD10: R42 (primary diagnosis) Chronic and stable. 2. Stage 3a chronic kidney disease (HCC) - ICD9: 585.3, ICD10: N18.31 - eGFR: Stable - Counseled on avoiding NSAIDs, adequate hydration - COMP METABOLIC PANEL 3. Athscl heart disease of [place] coronary artery w/o ang pctrs - ICD9: 414.01, ICD10: I25.10 Stable. 4. Essential hypertension, benign - ICD9: 401.1, ICD10: I10 - Controlled 5. Obstructive sleep apnea syndrome - ICD9: 327.23, ICD10: G47.33 Using and benefiting from regular CPAP use. Robert Mendoza MD documented in this encounter [facility] documented in this encounter [facility]04-05-2023 NoteHNO ID: [id number] Author: Robert Mendoza MD Service: ? Author Type: Physician Type: Progress Notes Filed: 03/27/2023 2:39 PM Note Text: This note was created using Beamrter. Subjective Dusty Barney is a 67 year old male here with spouse. He needed orders for reevaluation of his motorized wheelchair sent to [place] [facility]. His conditions were stable, and he had no acute concerns. Handicap parking also needed renewed. His specialists: Neurology: Dr. Wolff for MS Cardiology: [facility] for A-fib Urology: Dr. Bernardo chronic Kidney Stones and bladder cancer Pulmonology: Dr. Ni for [facility]. Dr. Okeefe: Optometry. Review of Systems Constitutional: Negative for fever and unexpected weight change. HENT: Negative. Respiratory: Negative for cough, shortness of breath and wheezing. Cardiovascular: Positive for leg swelling. Negative for chest pain and palpitations. Gastrointestinal: Negative for constipation. Neurological: Positive for weakness and light-headedness. Psychiatric/Behavioral: Positive for dysphoric mood. ACTIVE PROBLEM LIST Essential Hypertension, Benign Multiple Sclerosis (Hcc) Neurogenic Bladder Recurrent Uti Paroxysmal Atrial Fibrillation (Hcc) History of Pulmonary Embolus (Pe) Gerd Without Esophagitis Recurrent Major Depressive Disorder (Hcc) Anxiety Disorder, Unspecified Athscl Heart Disease of [place] Coronary Artery W/O Ang Pctrs Chronic Fatigue Syndrome Dependence On Wheelchair Obstructive Sleep Apnea Syndrome Ostium Secundum Type Atrial Septal Defect Personal History of Malignant Neoplasm of Bladder Vitamin D Deficiency Current Use of Box Toe Buffer Anticoagulation Stage 3a Chronic Kidney Disease (Hcc) Hydronephrosis of Left Kidney Left Hemiparesis (Hcc) Dizziness, Nonspecific Social History Tobacco Use Smoking status: Never Smokeless tobacco: Never Vaping Use Vaping Use: Never used Substance Use Topics Alcohol use: No Drug use: No Current Outpatient Medications Medication Sig pantoprazole DR (PROTONIX) 40 mg tablet Take 1 tablet by mouth once daily. meclizine (ANTIVERT) 25 mg tab Take 1 tablet by mouth twice daily as needed. DULoxetine (CYMBALTA) 60 mg capsule Take 1 capsule by mouth once daily. lisinopril (ZESTRIL, PRINIVIL) 20 mg tablet Take 1 tablet by mouth once daily. tiZANidine (ZANAFLEX) 4 mg tablet Take 1 tablet by mouth every 8 hours as needed (muscle spasms). hydroCHLOROthiazide 12.5 mg capsule Take 1 capsule by mouth once daily. tamsulosin (FLOMAX) 0.4 mg Take 0.4 mg by mouth twice daily. INV OCRELIZUMAB 600 mg in NaCl 0.9% 500 mL Inject 600 mg intravenously once every 6 months. Per NEUROLOGY. Potassium Citrate 15 mEq TbER potassium citrate Potassium Citrate Active 15 MEQ TWICE A DAY 60 February 04, 2020 1:11pm 02-04-2020 [facility] ([id number]) sodium bicarbonate 650 mg tablet Take 650 mg by mouth twice daily. apixaban (ELIQUIS) 5 mg tab(s) Take 1 tablet by mouth twice daily. carvedilol (COREG) 12.5 mg tablet Take 1 tablet by mouth twice daily. simvastatin (ZOCOR) 20 mg tablet Take 20 mg by mouth daily at bedtime. COMPOUNDED PRESCRIPTION Power wheelchair Dx multiple sclerosis with severe lower extremity weakness COMPOUNDED PRESCRIPTION Inflatable Emergency Lift Chair Cholecalciferol, Vitamin D3, 1,000 unit cap Take 1 capsule by mouth once daily. lisdexamfetamine (VYVANSE) 50 mg capsule Take 1 capsule by mouth once daily. DAILY MULTIVITAMIN TAB Take one(1) tablet daily. VITAMIN E 1,000 UNIT CAP Take one(1) tablet daily. No current facility-administered medications for this visit. Objective BP 120/68 (BP Site: Right Arm, BP Position: Sitting, BP Cuff Size: Large Adult) Pulse 92 Resp 16 Physical Exam Constitutional: General: He is not in acute distress. Appearance: He is obese. He is not ill-appearing. Cardiovascular: Rate and Rhythm: Normal rate and regular rhythm. Heart sounds: No murmur heard. No gallop. Pulmonary: Effort: Pulmonary effort is normal. Breath sounds: Normal breath sounds. Musculoskeletal: Right lower le+ Pitting Edema present. Left lower le+ Pitting Edema present. Neurological: Mental Status: He is alert. Comments: Left hemiparesis. Motorized Wheelchair bound. Assessment and Plan 1. Left hemiparesis (HCC) - ICD9: 342.90, ICD10: G81.94 (primary diagnosis) Chronic. Orders signed. 2. Multiple sclerosis (HCC) - ICD9: 340, ICD10: G35 Per neurology. - CBC - COMP METABOLIC PANEL 3. Essential hypertension, benign - ICD9: 401.1, ICD10: I10 - good control - HYDROCHLOROTHIAZIDE 12.5 MG CAPSULE - LIPID PANEL BASIC 4. Episode of recurrent major depressive disorder, unspecified depression episode severity (HCC) - ICD9: 296.30, ICD10: F33.9 Controlled. 5. Dependence on wheelchair - ICD9: V46.3, ICD10: Z99.3 Orders signed for faxing. Handicap parking letter. 6. Paroxysmal atrial fibrillation (HCC) - (more content not included)... [facility]04-05-2023 History of Present illness Narrative* Robert Mendoza MD - 02/26/2023 9:47 AM EDT This note was created using NoteWriter. Subjective Dusty Barney is a 67 year old male here with spouse. He needed orders for reevaluation of his motorized wheelchair sent to [place] [facility]. His conditions were stable, and he had no acute concerns. Handicap parking also needed renewed. His specialists: Neurology: Dr. Wolff for MS Cardiology: [facility]-fib Urology: Dr. Bernardo chronic Kidney Stones and bladder cancer Pulmonology: Dr. Ni for [facility]. Dr. Okeefe: Optometry. Review of Systems Constitutional: Negative for fever and unexpected weight change. HENT: Negative. Respiratory: Negative for cough, shortness of breath and wheezing. Cardiovascular: Positive for leg swelling. Negative for chest pain and palpitations. Gastrointestinal: Negative for constipation. Neurological: Positive for weakness and light-headedness. Psychiatric/Behavioral: Positive for dysphoric mood. ACTIVE PROBLEM LIST Essential Hypertension, Benign Multiple Sclerosis (Hcc) Neurogenic Bladder Recurrent Uti Paroxysmal Atrial Fibrillation (Hcc) History of Pulmonary Embolus (Pe) Gerd Without Esophagitis Recurrent Major Depressive Disorder (Hcc) Anxiety Disorder, Unspecified Athscl Heart Disease of [place] Coronary Artery W/O Ang Pctrs Chronic Fatigue Syndrome Dependence On Wheelchair Obstructive Sleep Apnea Syndrome Ostium Secundum Type Atrial Septal Defect Personal History of Malignant Neoplasm of Bladder Vitamin D Deficiency Current Use of Mcc Anticoagulation Stage 3a Chronic Kidney Disease (Hcc) Hydronephrosis of Left Kidney Left Hemiparesis (Hcc) Dizziness, Nonspecific Social History Tobacco Use Smoking status: Never Smokeless tobacco: Never Vaping Use Vaping Use: Never used Substance Use Topics Alcohol use: No Drug use: No Current Outpatient Medications Medication Sig pantoprazole DR (PROTONIX) 40 mg tablet Take 1 tablet by mouth once daily. meclizine (ANTIVERT) 25 mg tab Take 1 tablet by mouth twice daily as needed. DULoxetine (CYMBALTA) 60 mg capsule Take 1 capsule by mouth once daily. lisinopril (ZESTRIL, PRINIVIL) 20 mg tablet Take 1 tablet by mouth once daily. tiZANidine (ZANAFLEX) 4 mg tablet Take 1 tablet by mouth every 8 hours as needed (muscle spasms). hydroCHLOROthiazide 12.5 mg capsule Take 1 capsule by mouth once daily. tamsulosin (FLOMAX) 0.4 mg Take 0.4 mg by mouth twice daily. INV OCRELIZUMAB 600 mg in NaCl 0.9% 500 mL Inject 600 mg intravenously once every 6 months. Per NEUROLOGY. Potassium Citrate 15 mEq TbER potassium citrate Potassium Citrate Active 15 MEQ TWICE A DAY February 04, 2020 1:11pm 02-04-2020 [facility] ([id number]) sodium bicarbonate 650 mg tablet Take 650 mg by mouth twice daily. apixaban (ELIQUIS) 5 mg tab(s) Take 1 tablet by mouth twice daily. carvedilol (COREG) 12.5 mg tablet Take 1 tablet by mouth twice daily. simvastatin (ZOCOR) 20 mg tablet Take 20 mg by mouth daily at bedtime. COMPOUNDED PRESCRIPTION Power wheelchair Dx multiple sclerosis with severe lower extremity weakness COMPOUNDED PRESCRIPTION Inflatable Emergency Lift Chair Cholecalciferol, Vitamin D3, 1,000 unit cap Take 1 capsule by mouth once daily. lisdexamfetamine (VYVANSE) 50 mg capsule Take 1 capsule by mouth once daily. DAILY MULTIVITAMIN TAB Take one(1) tablet daily. VITAMIN E 1,000 UNIT CAP Take one(1) tablet daily. No current facility-administered medications for this visit. Objective BP 120/68 (BP Site: Right Arm, BP Position: Sitting, BP Cuff Size: Large Adult) Pulse 92 Resp 16 Physical Exam Constitutional: General: He is not in acute distress. Appearance: He is obese. He is not ill-appearing. Cardiovascular: Rate and Rhythm: Normal rate and regular rhythm. Heart sounds: No murmur heard. No gallop. Pulmonary: Effort: Pulmonary effort is normal. Breath sounds: Normal breath sounds. Musculoskeletal: Right lower le+ Pitting Edema present. Left lower le+ Pitting Edema present. Neurological: Mental Status: He is alert. Comments: Left hemiparesis. Motorized Wheelchair bound. Assessment and Plan 1. Left hemiparesis (HCC) - ICD9: 342.90, ICD10: G81.94 (primary diagnosis) Chronic. Orders signed. 2. Multiple sclerosis (HCC) - ICD9: 340, ICD10: G35 Per neurology. - CBC - COMP METABOLIC PANEL 3. Essential hypertension, benign - ICD9: 401.1, ICD10: I10 - good control - HYDROCHLOROTHIAZIDE 12.5 MG CAPSULE - LIPID PANEL BASIC 4. Episode of recurrent major depressive disorder, unspecified depression episode severity (HCC) - ICD9: 296.30, ICD10: F33.9 Controlled. 5. Dependence on wheelchair - ICD9: V46.3, ICD10: Z99.3 [facility]. 6. Paroxysmal atrial fibrillation (HCC) - ICD9: 427.31, ICD10: I48.0 Controlled. 7. Vitamin D deficiency - ICD9: 268.9, ICD10: E55.9 - VITAMIN D 25 HYDROXY 8. Screening for prostate cancer - ICD9: V76.44, ICD10: Z12.5 - Risks/benefits of prostate cancer screening discussed. screening PSA ordered - PSA/PROSTSPECAG SCRN Robert Mendoza MD documented in this encounterM[facility]12[facility] Miscellaneous Notes* Telephone Encounter - Maritza Muro LPN - 11/13/2022 9:47 AM EST Patient has been identified by name and date of : Yes Patient phones for refill(s): Requested Prescriptions Pending Prescriptions Disp Refills pantoprazole DR (PROTONIX) 40 mg tablet 90 tablet 3 Sig: Take 1 tablet by mouth once daily. Date of last office visit in primary care: 11/06/2022 Follow-up: 02/26/2023 Last 2 Encounter Wt Readings: Date: Wt: 12/14/2020 117.9 kg (260 lb) 01/08/2019 111.1 kg (245 lb) Previous labs/tests for medication: Not applicable Please advise. Thank you. Maritza Muro LPN documented in this encounterMccullough-[facility]12-14-2022 NoteHNO ID: [id number] Author: Maryuri Langford APRN.SPRAY DRIER OPERATOR Service: ? Author Type: Nurse Practitioner Type: Progress Notes Filed: 11/06/2022 8:35 AM Note Text: Medicare Yearly Visit Medical B eligibilty date 2018 Date of last exam 08/31/21 PAST MEDICAL HISTORY Diagnosis Date Anxiety disorder, unspecified 10/21/2017 Athscl heart disease of [place] coronary artery w/o ang pctrs 10/21/2017 Cardiogenic shock (HCC) 10/21/2017 Chronic atrial fibrillation (HCC) 10/30/2017 on Eliquis Chronic fatigue syndrome 10/21/2017 Dependence on wheelchair 10/21/2017 Essential hypertension, benign Gastrointestinal hemorrhage 05/19/2019 GERD without esophagitis 01/08/2019 History of pulmonary embolus (PE) 11/12/2017 saddle embolus, Jul 2017 Hydronephrosis of left kidney 12/14/2020 Left hemiparesis (HCC) 12/14/2020 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 posterior wall of urinary bladder (HCC) 11/12/2017 dx 2015 Multiple sclerosis (HCC) 09/1994 primary progressive II Neurogenic bladder 05/29/2015 Obstructive sleep apnea syndrome 10/21/2017 Other pulmonary embolism without acute cor pulmonale (HCC) 10/21/2017 Pneumonia 05/19/2019 Recurrent major depressive disorder (HCC) 01/08/2019 Recurrent UTI 02/21/2016 Sepsis (HCC) 05/19/2019 Stage 3a chronic kidney disease (HCC) 12/14/2020 PAST SURGICAL HISTORY Procedure Laterality Date COLONOSCOPY FLX DX W/COLLJ SPEC WHEN PFRMD 01-17-16 COLONOSCOPY FLX DX W/COLLJ SPEC WHEN PFRMD 06/01/2018 [facility]-repeat 10 years-05/2028 CYSTO W LITHOTRIPSY Left 02/24/15 cyst CYSTO W/FB, STENT EXT-PROC RM Left 01/21/15 ESOPHAGOGASTRODUODENOSCOPY TRANSORAL DIAGNOSTIC 06/01/2018 ALLERGIES: Patient has no active allergies. Medications reviewed: Yes FAMILY HISTORY Problem Relation Age of Onset Cancer Mother LUNG Heart Father Coronary Artery Disease Father Hypertension Mother Hypertension Father SOCIAL HISTORY: Social History Tobacco Use Smoking status: Never Smokeless tobacco: Never Vaping Use Vaping Use: Never used Substance Use Topics Alcohol use: No Drug use: No Dusty does strengthening exercises for his core every day for weakness caused by MS and wheelchair bound. He watches his diet for sodium, low fat and low cholesterol most of the time. List of current specialists seen: Neurology: Dr. Wolff for MS Cardiology: [facility] for [facility]-fib Urology: Dr. Bernardo chronic Kidney Stones and bladder cancer Pulmonology: Dr. Kaur for [facility]. Dr. Okeefe: Opthalmology End of Live Planning discussed including patients advanced directive wishes: Yes I am willing to follow Dusty's advanced directives. PHQ-2 / Depression screen He in the past two weeks denies having felt down, depressed, hopeless, or with little interest or pleasure in doing things. Functional Ability/Safety Screen 1. Was the patient's timed Up and Go test unsteady or longer than 30 seconds? Wheelchair bound 2. Does the patient need help with the phone, transportation, shopping,preparing meals, housework, laundry, medications or managing money? Yes assists patient with daily activities. 3. Does your home have rugs in the hallway, lack of grab bars in the bathroom, lack of handrails on the stairs or have poor lighting? Yes Uses a belle lift at home Hearing Evaluation: normal HTN: Mr. Barney indicates that he is feeling well and denies any symptoms referable to elevated blood pressure. Specifically denies headache, chest pain, palpitations, dyspnea, and peripheral edema. Patient denies any side effects of his medication(s) and is compliant with their regimen. He does check BP's away from this office with average BP's in the 120s/70s range. Last 3 Encounter BP Readings: Date: BP: 11/06/2022 126/78 02/20/2022 124/74 08/31/2021 122/70' MS: Sees neurology and gets injections. Unable to use left side. Requires belle lift for transferring, use of wheelchair and built up objects to use for right hand. Uses meclizine regularly for dizziness caused by MS PHYSICAL EXAM There were no vitals taken for this visit. Alert and oriented X 3: YES There is no height or weight on file to calculate BMI. CDT is normal 3/3 word recall. ASSESSMENT/PLAN: 67 year old male The following prevention plan was discussed during the office visit and provided to the patient: - Counseled on healthy diet and regular exercise - Fall avoidance - Vaccines recommended COVID-19 and Shingrix at pharmacy - Lipid panel - Diabetes screening - Depression screening - Substance use screening - Glaucoma screening - CBC + DIFF - BASIC METABOLIC PNL 2. Encounter for screening for diabetes mellitus - ICD9: V77.1, ICD10: Z13.1 CBC and BMP Prescription instructions reviewed with patient as applicable. Potential red flag symptoms discussed with the patient. Reviewed appropriate action plan to take if red flag symptoms occur. Patient agreeable to treatment plan. Maryuri Langford, (more content not included)...[facility]12-14-2022 History of Present illness Narrative* Maryuri Langford, 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 - 11/06/2022 7:59 AM EST Medicare Yearly Visit Medical B eligibilty date 2018 Date of last exam 08/31/21 PAST MEDICAL HISTORY Diagnosis Date Anxiety disorder, unspecified 10/21/2017 Athscl heart disease of [place] coronary artery w/o ang pctrs 10/21/2017 Cardiogenic shock (HCC) 10/21/2017 Chronic atrial fibrillation (HCC) 10/30/2017 on Eliquis Chronic fatigue syndrome 10/21/2017 Dependence on wheelchair 10/21/2017 Essential hypertension, benign Gastrointestinal hemorrhage 05/19/2019 GERD without esophagitis 01/08/2019 History of pulmonary embolus (PE) 11/12/2017 saddle embolus, Jul 2017 Hydronephrosis of left kidney 12/14/2020 Left hemiparesis (HCC) 12/14/2020 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 posterior wall of urinary bladder (HCC) 11/12/2017 dx 2014 Multiple sclerosis (HCC) 09/1994 primary progressive II Neurogenic bladder 05/29/2015 Obstructive sleep apnea syndrome 10/21/2017 Other pulmonary embolism without acute cor pulmonale (HCC) 10/21/2017 Pneumonia 05/19/2019 Recurrent major depressive disorder (HCC) 01/08/2019 Recurrent UTI 02/21/2016 Sepsis (HCC) 05/19/2019 Stage 3a chronic kidney disease (HCC) 12/14/2020 PAST SURGICAL HISTORY Procedure Laterality Date COLONOSCOPY FLX DX W/COLLJ SPEC WHEN PFRMD 01-17-16 COLONOSCOPY FLX DX W/COLLJ SPEC WHEN PFRMD 06/01/2018 [facility]-repeat 10 years-05/2028 CYSTO W LITHOTRIPSY Left 02/24/15 cyst CYSTO W/FB, STENT EXT-PROC RM Left 01/21/15 ESOPHAGOGASTRODUODENOSCOPY TRANSORAL DIAGNOSTIC 06/01/2018 ALLERGIES: Patient has no active allergies. Medications reviewed: Yes FAMILY HISTORY Problem Relation Age of Onset Cancer Mother LUNG Heart Father Coronary Artery Disease Father Hypertension Mother Hypertension Father SOCIAL HISTORY: Social History Tobacco Use Smoking status: Never Smokeless tobacco: Never Vaping Use Vaping Use: Never used Substance Use Topics Alcohol use: No Drug use: No Dusty does strengthening exercises for his core every day for weakness caused by MS and wheelchairbound. He watches his diet for sodium, low fat and low cholesterol most of the time. List of current specialists seen: Neurology: Dr. Wolff for MS Cardiology: [facility] for A-fib Urology: Dr. Bernardo chronic Kidney Stones and bladder cancer Pulmonology: Dr. Kaur for [facility]. Dr. Okeefe: Opthalmology End of Live Planning discussed including patients advanced directive wishes: Yes I am willing to follow Dusty's advanced directives. PHQ-2 / Depression screen He in the past two weeks denies having felt down, depressed, hopeless, or with little interest or pleasure in doing things. Functional Ability/Safety Screen 1. Was the patient's timed Up and Go test unsteady or longer than 30 seconds? Wheelchair bound 2. Does the patient need help with the phone, transportation, shopping,preparing meals, housework, laundry, medications or managing money? Yes assists patient with daily activities. 3. Does your home have rugs in the hallway, lack of grab bars in the bathroom, lack of handrails onthe stairs or have poor lighting? Yes Uses a belle lift at home Hearing Evaluation: normal HTN: Mr. Barney indicates that he is feeling well and denies any symptoms referable to elevated blood pressure. Specifically denies headache, chest pain, palpitations, dyspnea, and peripheral edema. Patient denies any side effects of his medication(s) and is compliant with their regimen. He does check BP's away from this office with average BP's in the 120s/70s range. Last 3 Encounter BP Readings: Date: BP: 11/06/2022 126/78 02/20/2022 124/74 08/31/2021 122/70' MS: Sees neurology and gets injections. Unable to use left side. Requires belle lift for transferring, use of wheelchair and built up objects to use for right hand. Uses meclizine regularly for dizziness caused by MS PHYSICAL EXAM There were no vitals taken for this visit. Alert and oriented X 3: YES There is no height or weight on file to calculate BMI. CDT is normal 3/3 word recall. ASSESSMENT/PLAN: 67 year old male The following prevention plan was discussed during the office visit and provided to the patient: - Counseled on healthy diet and regular exercise - Fall avoidance - Vaccines recommended COVID-19 and Shingrix at pharmacy - Lipid panel - Diabetes screening - Depression screening - Substance use screening - Glaucoma screening - CBC + DIFF - BASIC METABOLIC PNL 2. Encounter for screening for diabetes mellitus - ICD9: V77.1, ICD10: Z13.1 CBC and BMP Prescription instructions reviewed with patient as applicable. Potential red flag symptoms discussed with the patient. Reviewed appropriate action plan to take if red flag symptoms occur. Patient agreeable to treatment plan. Maryuri Langford APRN.CNP documented in this encounterMccull[facility]09-07-2022 Miscellaneous Notes* Telephone Encounter - Alexander Kearney Ma - 07/31/2022 8:23 AM EDT CAROLYN: 02/20/2022 Last refill: 07/06/2021 QTY: 90 Refills: 3 Patient's request for medication is as follows: Requested Prescriptions Pending Prescriptions Disp Refills DULoxetine (CYMBALTA) 60 mg capsule 90 capsule 3 Sig: Take 1 capsule by mouth once daily. Please approve the above prescription(s) to electronically send to pharmacy. Alexander Kearney Ma documented in this encounterMccull[facility]08-12-2022 History of Present illness Narrative* Yovana Will LPN - 07/05/2022 11:25 AM EDT Message left at pts home number to return call to a nurse to complete TCM note and arrange hospitalfollow up documented in this encounterMccull[facility]08-02-2022 Miscellaneous Notes* Telephone Encounter - Maritza Muro LPN - 06/25/2022 8:19 AM EDT Patient notified. Maritza Muro LPN * Telephone Encounter - Aura Langford APRN.CNP - 06/25/2022 8:00 AM EDT He is not due for any labs in August Aura Langford APRN.VERNON * Telephone Encounter - Lauren Alvarado LPN - 06/24/2022 10:23 AM EDT Patient is scheduled to see Aura Langford 09/04/2022 and is asking if he has labs that need completed prior to appointment? documented in this encounterMccullough-[facility]03-30-2022 History of Present illness Narrative* Robert Mendoza MD - 02/20/2022 10:05 AM EDT This note was created using Beamrter. Subjective Dusty Barney is a 66 year old male was here for follow up. I am seeing him for the 2nd time. He mainly sees his specialists. He was bed and wheelchair bound. He has lack of sensation in his legs and has multiple abrasions from minor trauma. His Td needs updated. He gets periodic dizziness, related to MS and meclizine was effective. His requested a motorized hospital bed to replace thecrank bed he has, as well as a motorized Belle lift to replace the mechanical one they have. His last weight on record from 11/2020 was 260 lb. Other specialists: Dr. Mathew Roy, [facility]. Dr. Ni, pulmonary. Dr. Bernardo, urology. Review of Systems Constitutional: Negative. Eyes: Negative. Respiratory: Negative for shortness of breath. Cardiovascular: Positive for leg swelling. Negative for chest pain and palpitations. Gastrointestinal: Incontinence. Genitourinary: Negative. Skin: Positive for wound. Neurological: Positive for dizziness. ACTIVE PROBLEM LIST Essential Hypertension, Benign Multiple Sclerosis (Hcc) Neurogenic Bladder Recurrent Uti History of Pulmonary Embolus (Pe) Gerd Without Esophagitis Recurrent Major Depressive Disorder (Hcc) Anxiety Disorder, Unspecified Athscl Heart Disease of [place] Coronary Artery W/O Ang Pctrs Chronic Fatigue Syndrome Dependence On Wheelchair Obstructive Sleep Apnea Syndrome Ostium Secundum Type Atrial Septal Defect Personal History of Malignant Neoplasm of Bladder Vitamin D Deficiency Hypercalcemia Current Use of Mcc Anticoagulation Stage 3a Chronic Kidney Disease (Hcc) Hydronephrosis of Left Kidney Left Hemiparesis (Hcc) Current Outpatient Medications Medication Sig tiZANidine (ZANAFLEX) 4 mg tablet Take 1 tablet by mouth every 8 hours as needed (muscle spasms). lisinopril (ZESTRIL, PRINIVIL) 20 mg tablet Take 1 tablet by mouth once daily. hydroCHLOROthiazide 12.5 mg capsule Take 1 capsule by mouth once daily. pantoprazole DR (PROTONIX) 40 mg tablet Take 1 tablet by mouth once daily. meclizine (ANTIVERT) 25 mg tab Take 1 tablet by mouth as needed. DULoxetine (CYMBALTA) 60 mg capsule Take 1 capsule by mouth once daily. tamsulosin (FLOMAX) 0.4 mg Take 0.4 mg by mouth twice daily. INV OCRELIZUMAB 600 mg in NaCl 0.9% 500 mL Inject 600 mg intravenously once every 6 months. Per NEUROLOGY. Potassium Citrate 15 mEq TbER potassium citrate Potassium Citrate Active 15 MEQ TWICE A DAY February 04, 2020 1:11pm 02-04-2020 [facility] ([id number]) sodium bicarbonate 650 mg tablet Take 650 mg by mouth twice daily. Zinc 50 mg tab Take 50 mg by mouth once daily. ascorbic acid, vitamin C, (VITAMIN C) 500 mg tablet Take 500 mg by mouth once daily. apixaban (ELIQUIS) 5 mg tab(s) Take 1 tablet by mouth twice daily. carvedilol (COREG) 12.5 mg tablet Take 1 tablet by mouth twice daily. simvastatin (ZOCOR) 20 mg tablet Take 20 mg by mouth daily at bedtime. COMPOUNDED PRESCRIPTION Power wheelchair Dx multiple sclerosis with severe lower extremity weakness COMPOUNDED PRESCRIPTION Inflatable Emergency Lift Chair Cholecalciferol, Vitamin D3, 1,000 unit cap Take 1 capsule by mouth once daily. lisdexamfetamine (VYVANSE) 50 mg capsule Take 1 capsule by mouth once daily. DAILY MULTIVITAMIN TAB Take one(1) tablet daily. VITAMIN E 1,000 UNIT CAP Take one(1) tablet daily. No current facility-administered medications for this visit. Objective BP 124/74 (BP Site: Right Arm, BP Position: Sitting, BP Cuff Size: Large Adult) Pulse 72 Temp (!) 35.8 C (96.4 F) (Temporal Artery) Resp 16 Physical Exam Constitutional: General: He is not in acute distress. Appearance: He is obese. Comments: Motorized wheelchair bound. Eyes: Conjunctiva/sclera: Conjunctivae normal. Cardiovascular: Rate and Rhythm: Normal rate and regular rhythm. Heart sounds: No murmur heard. No gallop. Pulmonary: Effort: No respiratory distress. Breath sounds: No wheezing or rales. Abdominal: General: There is no distension. Musculoskeletal: Right lower le+ Pitting Edema present. Left lower le+ Pitting Edema present. Skin: Comments: Multiple abrasions of both legs, some fresh, no cellulitis. Neurological: Mental Status: He is alert. Comments: Wheelchair bound. Motor exam: L arm flaccind 0/5. R arm 4/5. L leg flaccid 1/5 st. Right leg 3/5. Diminished sensation to PP and FT in both legs from the knees distally. Assessment and Plan 1. Dizziness, nonspecific - ICD9: 780.4, ICD10: R42 (primary diagnosis) Refilled. - MECLIZINE 25 MG TABLET 2. Multiple opens wound of lower extremity, unspecified laterality, subsequent encounter - ICD9: V58.89, 894.0, ICD10: S81.809D Wound care discussed and per spouse. - TDAP VACCINE AGE 7+ IM 3. Left hemiparesis (HCC) - ICD9: 342.90, ICD10: G81.94 - HOSP BED W MATTR FULL ELECTRIC - PATIENT LIFT, ELECTRIC 4. Multiple sclerosis (HCC) - ICD9: 340, ICD10: G35 - HOSP BED W MATTR FULL ELECTRIC - PATIENT LIFT, ELECTRIC 5. Chronic fatigue syndrome - ICD9: 780.71, ICD10: R53.82 - HOSP BED W MATTR FULL ELECTRIC - PATIENT LIFT, ELECTRIC 6. Need for vaccination - ICD9: V05.9, ICD10: Z23 - TDAP VACCINE AGE 7+ IM 7. Essential hypertension, benign - ICD9: 401.1, ICD10: I10 - good control Robert Mendoza MD documented in this encounterMccull[facility]07-23-2019 History of Past illness Narrative* Problem Noted Date Resolved Date Hypercalcemia 06/15/2019 02/26/2023 Gastrointestinal hemorrhage 05/19/201911/24 Pneumonia 05/19/2019 06/21/2021 Sepsis 05/19/2019 12/10/2019 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 posterior wall of urinary bladder 11/12/2017 06/21/2021 Overview: dx 2014 Acute respiratory failure 10/21/20172018 Other pulmonary embolism without acute cor pulmo nale 10/21/2017 06/21/2021 Cardiogenic shock 10/21/2017 06/21/2021 Dyspnea 09/04/2017 06/21/2021 documented as of this encounter (statuses as of 02/26/2023) [facility] of Past illness Narrative* Problem Noted Date Resolved Date Hypercalcemia 06/15/2019 02/26/2023 Gastrointestinal hemorrhage 05/19/201911/24 Pneumonia 05/19/2019 06/21/2021 Sepsis 05/19/2019 12/10/2019 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 posterior wall of urinary bladder 11/12/2017 06/21/2021 Overview: dx 2014 Acute respiratory failure 10/21/20172018 Other pulmonary embolism without acute cor pulmo nale 10/21/2017 06/21/2021 Cardiogenic shock 10/21/2017 06/21/2021 Dyspnea 09/04/2017 06/21/2021 documented as of this encounter (statuses as of 05/09/2023) [facility] of Past illness Narrative* Problem Noted Date Resolved Date Hypercalcemia 06/15/2019 02/26/2023 Gastrointestinal hemorrhage 05/19/201911/24 Pneumonia 05/19/2019 06/21/2021 Sepsis 05/19/2019 12/10/2019 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 posterior wall of urinary bladder 11/12/2017 06/21/2021 Overview: dx 2014 Acute respiratory failure 10/21/20172018 Other pulmonary embolism without acute cor pulmo nale 10/21/2017 06/21/2021 Cardiogenic shock 10/21/2017 06/21/2021 Dyspnea 09/04/2017 06/21/2021 documented as of this encounter (statuses as of 05/13/2023) [facility] of Past illness Narrative* Problem Noted Date Diagnosed Date Resolved Date Hypercalcemia 06/15/2019 02/26/2023 Gastrointestinal hemorrhage 05/19/2019 12/10/2019 Pneumonia 05/19/2019 06/21/2021 Sepsis 05/19/2019 12/10/2019 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 sliding joint maker ior wall of urinary bladder 11/12/2017 06/21/2021 Overview: dx 2014 Acute respiratory failure 10/21/2017 Other pulmonary embolism wit hout acute cor pulmonale 10/21/2017 06/21/2021 Cardiogenic shock 10/21/2017 06/21/2021 Dyspnea 09/04/2017 06/21/2021 documented as of this encounter (statuses as of 07/08/2023) [facility] of Past illness Narrative* Problem Noted Date Diagnosed Date Resolved Date Hypercalcemia 06/15/2019 02/26/2023 Gastrointestinal hemorrhage 05/19/2019 12/10/2019 Pneumonia 05/19/2019 06/21/2021 Sepsis 05/19/2019 12/10/2019 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 sliding joint maker ior wall of urinary bladder 11/12/2017 06/21/2021 Overview: dx 2014 Acute respiratory failure 10/21/2017 Other pulmonary embolism wit hout acute cor pulmonale 10/21/2017 06/21/2021 Cardiogenic shock 10/21/2017 06/21/2021 Dyspnea 09/04/2017 06/21/2021 documented as of this encounter (statuses as of 08/13/2023) [facility] of Past illness Narrative* Problem Noted Date Diagnosed Date Resolved Date Hypercalcemia 06/15/2019 02/26/2023 Gastrointestinal hemorrhage 05/19/2019 12/10/2019 Pneumonia 05/19/2019 06/21/2021 Sepsis 05/19/2019 12/10/2019 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 sliding joint maker ior wall of urinary bladder 11/12/2017 06/21/2021 Overview: dx 2014 Acute respiratory failure 10/21/2017 Other pulmonary embolism wit hout acute cor pulmonale 10/21/2017 06/21/2021 Cardiogenic shock 10/21/2017 06/21/2021 Dyspnea 09/04/2017 06/21/2021 documented as of this encounter (statuses as of 08/15/2023) [facility] illness Narrative* Problem Noted Date Diagnosed Date Resolved Date Hypercalcemia 06/15/2019 02/26/2023 Gastrointestinal hemorrhage 05/19/2019 12/10/2019 Pneumonia 05/19/2019 06/21/2021 Sepsis 05/19/2019 12/10/2019 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 sliding joint maker ior wall of urinary bladder 11/12/2017 06/21/2021 Overview: dx 2014 Acute respiratory failure 10/21/2017 Other pulmonary embolism wit hout acute cor pulmonale 10/21/2017 06/21/2021 Cardiogenic shock 10/21/2017 06/21/2021 Dyspnea 09/04/2017 06/21/2021 documented as of this encounter (statuses as of 08/19/2023) [facility] illness Narrative* Problem Noted Date Diagnosed Date Resolved Date Hypercalcemia 06/15/2019 02/26/2023 Gastrointestinal hemorrhage 05/19/2019 12/10/2019 Pneumonia 05/19/2019 06/21/2021 Sepsis 05/19/2019 12/10/2019 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 sliding joint maker ior wall of urinary bladder 11/12/2017 06/21/2021 Overview: dx 2014 Acute respiratory failure 10/21/2017 Other pulmonary embolism wit hout acute cor pulmonale 10/21/2017 06/21/2021 Cardiogenic shock 10/21/2017 06/21/2021 Dyspnea 09/04/2017 06/21/2021 documented as of this encounter (statuses as of 08/30/2023) [facility] illness Narrative* Problem Noted Date Diagnosed Date Resolved Date Hypercalcemia 06/15/2019 02/26/2023 Gastrointestinal hemorrhage 05/19/2019 12/10/2019 Pneumonia 05/19/2019 06/21/2021 Sepsis 05/19/2019 12/10/2019 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 sliding joint maker ior wall of urinary bladder 11/12/2017 06/21/2021 Overview: dx 2015 Acute respiratory failure 10/21/2017 Other pulmonary embolism wit hout acute cor pulmonale 10/21/2017 06/21/2021 Cardiogenic shock 10/21/2017 06/21/2021 Dyspnea 09/04/2017 06/21/2021 documented as of this encounter (statuses as of 09/01/2023) [facility] illness Narrative* Problem Noted Date Diagnosed Date Resolved Date Hypercalcemia 06/15/2019 02/26/2023 Gastrointestinal hemorrhage 05/19/2019 12/10/2019 Pneumonia 05/19/2019 06/21/2021 Sepsis 05/19/2019 12/10/2019 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 sliding joint maker ior wall of urinary bladder 11/12/2017 06/21/2021 Overview: dx 2015 Other pulmonary embolism wit hout acute cor pulmonale 10/21/2017 06/21/2021 Cardiogenic shock 10/21/2017 06/21/2021 Dyspnea 09/04/2017 06/21/2021 documented as of this encounter (statuses as of 09/10/2023) [facility] illness Narrative* Problem Noted Date Diagnosed Date Resolved Date Hypercalcemia 06/15/2019 02/26/2023 Gastrointestinal hemorrhage 05/19/2019 12/10/2019 Pneumonia 05/19/2019 06/21/2021 Sepsis 05/19/2019 12/10/2019 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 sliding joint maker ior wall of urinary bladder 11/12/2017 06/21/2021 Overview: dx 2015 Other pulmonary embolism wit hout acute cor pulmonale 10/21/2017 06/21/2021 Cardiogenic shock 10/21/2017 06/21/2021 Dyspnea 09/04/2017 06/21/2021 documented as of this encounter (statuses as of 09/18/2023) [facility] History of Past illness Narrative* Problem Noted Date Diagnosed Date Resolved Date Hypercalcemia 06/15/2019 02/26/2023 Gastrointestinal hemorrhage 05/19/2019 12/10/2019 Pneumonia 05/19/2019 06/21/2021 Sepsis 05/19/2019 12/10/2019 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 sliding joint maker ior wall of urinary bladder 11/12/2017 06/21/2021 Overview: dx 2015 Other pulmonary embolism wit hout acute cor pulmonale 10/21/2017 06/21/2021 Cardiogenic shock 10/21/2017 06/21/2021 Dyspnea 09/04/2017 06/21/2021 documented as of this encounter (statuses as of 10/15/2023) [facility] History of Past illness Narrative* Problem Noted Date Resolved Date Gastrointestinal hemorrhage 05/19/201911/24 Pneumonia 05/19/2019 06/21/2021 Sepsis 05/19/2019 12/10/2019 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 posterior wall of urinary bladder 11/12/2017 06/21/2021 Overview: dx 2014 Chronic atrial fibrillation 10/30/201711/24 Overview: on Eliquis Acute respiratory failure 10/21/20172018 Other pulmonary embolism without acute cor pulmo nale 10/21/2017 06/21/2021 Cardiogenic shock 10/21/2017 06/21/2021 Dyspnea 09/04/2017 06/21/2021 documented as of this encounter (statuses as of 02/20/2022) [facility] History of Past illness Narrative* Problem Noted Date Resolved Date Gastrointestinal hemorrhage 05/19/201911/24 Pneumonia 05/19/2019 06/21/2021 Sepsis 05/19/2019 12/10/2019 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 posterior wall of urinary bladder 11/12/2017 06/21/2021 Overview: dx 2014 Chronic atrial fibrillation 10/30/201711/24 Overview: on Eliquis Acute respiratory failure 10/21/20172018 Other pulmonary embolism without acute cor pulmo nale 10/21/2017 06/21/2021 Cardiogenic shock 10/21/2017 06/21/2021 Dyspnea 09/04/2017 06/21/2021 documented as of this encounter (statuses as of 06/25/2022) [facility] History of Past illness Narrative* Problem Noted Date Resolved Date Gastrointestinal hemorrhage 05/19/201911/24 Pneumonia 05/19/2019 06/21/2021 Sepsis 05/19/2019 12/10/2019 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 posterior wall of urinary bladder 11/12/2017 06/21/2021 Overview: dx 2014 Chronic atrial fibrillation 10/30/201711/24 Overview: on Eliquis Acute respiratory failure 10/21/20172018 Other pulmonary embolism without acute cor pulmo nale 10/21/2017 06/21/2021 Cardiogenic shock 10/21/2017 06/21/2021 Dyspnea 09/04/2017 06/21/2021 documented as of this encounter (statuses as of 07/05/2022) [facility] History of Past illness Narrative* Problem Noted Date Resolved Date Gastrointestinal hemorrhage 05/19/201911/24 Pneumonia 05/19/2019 06/21/2021 Sepsis 05/19/2019 12/10/2019 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 posterior wall of urinary bladder 11/12/2017 06/21/2021 Overview: dx 2014 Chronic atrial fibrillation 10/30/201711/24 Overview: on Eliquis Acute respiratory failure 10/21/20172018 Other pulmonary embolism without acute cor pulmo nale 10/21/2017 06/21/2021 Cardiogenic shock 10/21/2017 06/21/2021 Dyspnea 09/04/2017 06/21/2021 documented as of this encounter (statuses as of 07/31/2022) [facility] History of Past illness Narrative* Problem Noted Date Resolved Date Gastrointestinal hemorrhage 05/19/201911/24 Pneumonia 05/19/2019 06/21/2021 Sepsis 05/19/2019 12/10/2019 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 posterior wall of urinary bladder 11/12/2017 06/21/2021 Overview: dx 2014 Chronic atrial fibrillation 10/30/201711/24 Overview: on Eliquis Acute respiratory failure 10/21/20172018 Other pulmonary embolism without acute cor pulmo nale 10/21/2017 06/21/2021 Cardiogenic shock 10/21/2017 06/21/2021 Dyspnea 09/04/2017 06/21/2021 documented as of this encounter (statuses as of 11/06/2022) [facility] History of Past illness Narrative* Problem Noted Date Resolved Date Gastrointestinal hemorrhage 05/19/201911/24 Pneumonia 05/19/2019 06/21/2021 Sepsis 05/19/2019 12/10/2019 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 posterior wall of urinary bladder 11/12/2017 06/21/2021 Overview: dx 2014 Chronic atrial fibrillation 10/30/201711/24 Overview: on Eliquis Acute respiratory failure 10/21/20172018 Other pulmonary embolism without acute cor pulmo nale 10/21/2017 06/21/2021 Cardiogenic shock 10/21/2017 06/21/2021 Dyspnea 09/04/2017 06/21/2021 documented as of this encounter (statuses as of 11/13/2022) [facility] History of Past illness Narrative* Problem Noted Date Resolved Date Gastrointestinal hemorrhage 05/19/201911/24 Pneumonia 05/19/2019 06/21/2021 Sepsis 05/19/2019 12/10/2019 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 posterior wall of urinary bladder 11/12/2017 06/21/2021 Overview: dx 2014 Chronic atrial fibrillation 10/30/201711/24 Overview: on Eliquis Acute respiratory failure 10/21/20172018 Other pulmonary embolism without acute cor pulmo nale 10/21/2017 06/21/2021 Cardiogenic shock 10/21/2017 06/21/2021 Dyspnea 09/04/2017 06/21/2021 documented as of this encounter (statuses as of 01/07/2023) [facility] note* Diagnosis Dizziness, nonspecific- Primary Dizziness and giddiness Multiple opens wound of lower extremity, unspecified laterality, subsequent encounter Left hemiparesis (HCC) Hemiplegia, unspecified, affecting unspecified side Multiple sclerosis (HCC) Multiple sclerosis Chronic fatigue syndrome Need for vaccination Need for prophylactic vaccination and inoculation against unspecified single disease Essential hypertension, benign documented in this encounter [facility] note* Diagnosis Medicare annual wellness visit, subsequent- Primary Routine general medical examination at a health care facility Encounter for screening for diabetes mellitus Screening for diabetes mellitus [facility] Diagnosis GERD without esophagitis Esophageal reflux documented in this encounter [facility] note* Diagnosis Left hemiparesis (HCC)- Primary Hemiplegia, unspecified, affecting unspecified side Multiple sclerosis (HCC) Multiple sclerosis Essential hypertension, benign Episode of recurrent major depressive disorder, unspecified depression episode severity (HCC) Dependence on wheelchair Paroxysmal atrial fibrillation (HCC) Atrial fibrillation Vitamin D deficiency Unspecified vitamin D deficiency Screening for prostate cancer Special screening for malignant neoplasm of prostate documented in this encounter [facility] Reason for Referral Specialty Diagnoses / Procedures Referred By Joseph t Referred To Contact Diagnoses Dizziness, nonspecific 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, 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, 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 [address] [place] [address] Referral ID Status Reason Start Date Expiration Date V isits Requested Visits Authorized [id number] Authorized 11/24/2021 11/23/2023 1 1 Summary Purpose Family History No Family History Records Found Advance Directives No Advanced Directives Records Found Additional Source Comments Source Comments (unrecognize d section and content) In the event this informatio n is protected by the Federal Confidentiality of Alcohol and Drug Abuse Patient Records regulations: The Federal rules restrict any use of the information to criminally investigate or prosecute any alcohol or drug abuse patient.[facility] the event this information is protected by the Federal Confidentiality of Alcohol and Drug Abuse Patient Records regulations: The Federal rules restrict any use of the information to criminally investigate or prosecute any alcohol or drug abuse patient.[facility] the event this information is protected by the Federal Confidentiality of Alcohol and Drug Abuse Patient Records regulations: The Federal rules restrict any use of the information to criminally investigate or prosecute any alcohol or drug abuse patient.[facility] the event this information is protected by the Federal Confidentiality of Alcohol and Drug Abuse Patient Records regulations: The Federal rules restrict any use of the information to criminally investigate or prosecute any alcohol or drug abuse patient.[facility] the event this information is protected by the Federal Confidentiality of Alcohol and Drug Abuse Patient Records regulations: The Federal rules restrict any use of the information to criminally investigate or prosecute any alcohol or drug abuse patient.[facility] the event this information is protected by the Federal Confidentiality of Alcohol and Drug Abuse Patient Records regulations: The Federal rules restrict any use of the information to criminally investigate or prosecute any alcohol or drug abuse patient.[facility] the event this information is protected by the Federal Confidentiality of Alcohol and Drug Abuse Patient Records regulations: The Federal rules restrict any use of the information to criminally investigate or prosecute any alcohol or drug abuse patient.[facility] the event this information is protected by the Federal Confidentiality of Alcohol and Drug Abuse Patient Records regulations: The Federal rules restrict any use of the information to criminally investigate or prosecute any alcohol or drug abuse patient.[facility] the event this information is protected by the Federal Confidentiality of Alcohol and Drug Abuse Patient Records regulations: The Federal rules restrict any use of the information to criminally investigate or prosecute any alcohol or drug abuse patient.[facility] the event this information is protected by the Federal Confidentiality of Alcohol and Drug Abuse Patient Records regulations: The Federal rules restrict any use of the information to criminally investigate or prosecute any alcohol or drug abuse patient.[facility] the event this information is protected by the Federal Confidentiality of Alcohol and Drug Abuse Patient Records regulations: The Federal rules restrict any use of the information to criminally investigate or prosecute any alcohol or drug abuse patient.[facility] the event this information is protected by the Federal Confidentiality of Alcohol and Drug Abuse Patient Records regulations: The Federal rules restrict any use of the information to criminally investigate or prosecute any alcohol or drug abuse patient.[facility] the event this information is protected by the Federal Confidentiality of Alcohol and Drug Abuse Patient Records regulations: The Federal rules restrict any use of the information to criminally investigate or prosecute any alcohol or drug abuse patient.[facility] the event this information is protected by the Federal Confidentiality of Alcohol and Drug Abuse Patient Records regulations: The Federal rules restrict any use of the information to criminally investigate or prosecute any alcohol or drug abuse patient.[facility] the event this information is protected by the Federal Confidentiality of Alcohol and Drug Abuse Patient Records regulations: The Federal rules restrict any use of the information to criminally investigate or prosecute any alcohol or drug abuse patient.[facility] the event this information is protected by the Federal Confidentiality of Alcohol and Drug Abuse Patient Records regulations: The Federal rules restrict any use of the information to criminally investigate or prosecute any alcohol or drug abuse patient.[facility] the event this information is protected by the Federal Confidentiality of Alcohol and Drug Abuse Patient Records regulations: The Federal rules restrict any use of the information to criminally investigate or prosecute any alcohol or drug abuse patient.[facility] the event this information is protected by the Federal Confidentiality of Alcohol and Drug Abuse Patient Records regulations: The Federal rules restrict any use of the information to criminally investigate or prosecute any alcohol or drug abuse patient.[facility] the event this information is protected by the Federal Confidentiality of Alcohol and Drug Abuse Patient Records regulations: The Federal rules restrict any use of the information to criminally investigate or prosecute any alcohol or drug abuse patient.[facility] Reason for Visit (unrecogniz ed section and content) Reason Comments Orders Reason Onset Date Comments Transition Of Care 07/05/2022 Reason Onset Date Comments Refill Request 07/29/2022 Reason Comments Medicare Wellness Exam Annual Medicare W ellness Reason Onset Date Comments Refill Request 11/13/2022 Reason Onset Date Comments Refill Request 01/07/2023 Reason Comments F/U 3 Month Reason Comments F/U 6 months Reason Onset Date Comments Refill Request 05/13/2023 Reason Comments Forms Reason Comments Nursing POC. [facility] Reason Comments Patient Update Reason Comments [facility] PT Plan of Care Reason Comments Home Health Point of Care Results Reason Comments [facility] Question Reason Comments home health calling Care Teams (unrecognized sec tion and content) Finance Business Manager Relationship Specialty Start Date End Date Robert Mendoza MD [address] [facility] [place] [address] PCP - General Internal Medicine 06/21/21 Finance Business Manager Relationship Specialty Start Date End Date Robert Mendoza MD [address] [facility] [place] [address] PCP - General Internal Medicine 06/21/21 Finance Business Manager Relationship Specialty Start Date End Date Robert Mendoza MD [address] [facility] [place] [address] PCP - General Internal Medicine 06/21/21 Finance Business Manager Relationship Specialty Start Date End Date Robert Mendoza MD [address] [facility] [place] [address] PCP - General Internal Medicine 06/21/21 Finance Business Manager Relationship Specialty Start Date End Date Robert Mendoza MD [address] [facility] [place] [address] PCP - General Internal Medicine 06/21/21 Finance Business Manager Relationship Specialty Start Date End Date Robert Mendoza MD [address] [facility] [place] [address] PCP - General Internal Medicine 06/21/21 Finance Business Manager Relationship Specialty Start Date End Date Robert Mendoza MD [address] [facility] [place] [address] PCP - General Internal Medicine 06/21/21 Finance Business Manager Relationship Specialty Start Date End Date Robert Mendoza MD [address] [facility] [place] [address] PCP - General Internal Medicine 06/21/21 Finance Business Manager Relationship Specialty Start Date End Date Robert Mendoza MD [facility] [place] [address] PCP - General Internal Medicine 06/21/21 Finance Business Manager Relationship Specialty Start Date End Date Robert Mendoza MD [address] [facility] [place] [address] PCP - General Internal Medicine 06/21/21 Finance Business Manager Relationship Specialty Start Date End Date Robert Mendoza MD [address] [facility] [place] [id number] PCP - General Internal Medicine 06/21/21 (unrecognized sect ion and content) No Status Records Found INFORMATION SOURCE (unrecogn ized section and content) FOR RECORDS PERTAINING TO PATIENTS WHO ARE OR HAVE BEEN ENROLLED IN A CHEMICAL DEPENDENCY/SUBSTANCEABUSE PROGRAM, SOME INFORMATION MAY BE OMITTED. This clinical summary was aggregated from multiple sources. Caution should be exercised in using it in the provision of clinical care. This summary normalizes information from multiple sources, and as a consequence, information in this document may materially change the coding, format and clinical context of patient data. In addition, data may be omitted in some cases. CLINICAL DECISIONS SHOULD BE BASED ON THE PRIMARY CLINICAL RECORDS. [facility]. provides no warranty or guarantee of the accuracy or completeness of information in this document.
[2023-12-19 08:01] VITALS: BP 104/79; PULSE 97; RESP 16; TEMP 36.4; O2SAT 92; BMI 34.7
[2023-12-19] MEDS: DiphenhydrAMINE 50 MG/ML Syringe 12.5 MG IV (08:30)
[2023-12-19] MEDS: MethylPREDNISolone 125 MG/2 ML Vial 100 MG IV (08:30)
[2023-12-19] MEDS: Ocrelizumab 600mg Infusion 40 MG IV (09:14)
== END 2023-12-19 07:49 | disposition home or self-care (01) ==
LOC: MEDOUTP 07:49
PROVIDERS: PCP Internal Medicine; Referring Provider Psychiatry & Neurology Sleep Medicine; Visit Provider Psychiatry & Neurology Sleep Medicine
DX: G35 Multiple sclerosis (principal)
CPT/HCPCS: 96365; 96375; 96366; J7040; J7050; A4216; J2350

== ENCOUNTER → 2023-12-29 | Outpatient (CLI) | payer MEDICARE, SELFPAY ==
--- NOTE | 2023-12-29 08:10 | CT_ITS ---
STUDY: CT ABDOMEN AND PELVIS WITHOUT CONTRAST REASON FOR EXAM: Male, 68 years old. Calculus of kidney. History of prior bladder cancer and lithotripsy. RADIATION DOSAGE (If Supplied By Facility): CTDIvol = ( 23.94 ) mGy, DLP = ( 1651.06 ) mGycm TECHNIQUE: Transaxial images were obtained from the dome of the diaphragm to the symphysis pubis without oral contrast, and without intravenous contrast. Sagittal and coronal images were reconstructed. Individualized dose optimization techniques were used for this CT. COMPARISON: None. FINDINGS: Mild degree of increased markings at the lung bases suggestive of scarring and/or atelectasis. Residual focal patchy area of partial calcification and infiltration in the peripheral aspect of the left lower lobe. There is elevation of the left hemidiaphragm. Coronary artery calcification. Normal liver. Normal gallbladder and extrahepatic biliary system. Normal spleen. Normal pancreas. Normal bilateral adrenal glands. Focal cortical scar in the lateral cortex of the right kidney along its midportion. There is atrophy of the left kidney. Nonobstructing left intrarenal calculi. There is a 1.4 cm x 0.3 cm calculus in the left renal pelvis causing a mild degree of left hydronephrosis. Normal visualized stomach. Normal small intestine. Normal colon. The appendix is visualized and appears normal. There is diffuse atherosclerotic calcification of the abdominal aorta, without a demonstrated aneurysm. Normal inferior vena cava. Normal retroperitoneum. Normal urinary bladder. Normal abdominal wall. There are degenerative changes of the visualized lumbar spine. CT/Abdomen/Pelvis without Cont IMPRESSION: Atrophy of the left kidney with left intrarenal calculi. 1.4 cm x 0.3 cm calculus in the left renal pelvis causing a mild degree of left hydronephrosis. Residual pleural-parenchymal changes with calcification in the left lower lobe although this has improved as compared to prior study. Elevation of the left hemidiaphragm. Electronically Signed: Bc Bishop MD at 13:03 EST ,
--- OUTSIDE RECORDS SUMMARY | 2023-12-29 08:35 | XMS RPT_ITS | CCD ---
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) use of anticoagulants] Onset: 12-22-2019 12-22-2019 [...] 80 mm[Hg] Robert Mendoza MD Work Phone: [facility] 05-09-2023 08:51-0400 Heart rate 80 /min Robert Mendoza MD Work Phone: [facility] 05-09-2023 08:51-0400 Respiratory rate 16 /min Robert Mendoza MD Work Phone: [facility] 05-09-2023 08:51-0400 Systolic blood pressure 110 mm[Hg] Robert Mendoza MD Work Phone: [facility] 02-26-2023 09:24-0400 Diastolic blood pressure 68 mm[Hg] Robert Mendoza MD Work Phone: [facility] 02-26-2023 09:24-0400 Heart rate 92 /min Robert Mendoza MD Work Phone: [facility] 02-26-2023 09:24-0400 Respiratory rate 16 /min Robert Mendoza MD Work Phone: [facility] 02-26-2023 09:24-0400 Systolic blood pressure 120 mm[Hg] Robert Mendoza MD Work Phone: [facility] 11-06-2022 08:00-0500 Body temperature 97.39 [degF] Maryuri Older 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 Work Phone: [facility] 11-06-2022 08:00-0500 Diastolic blood pressure 78 mm[Hg] Maryuri Older 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 Work Phone: [facility] 11-06-2022 08:00-0500 Heart rate 88 /min Maryuri Older 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 Work Phone: [facility] 11-06-2022 08:00-0500 Respiratory rate 16 /min Maryuri Older 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 Work Phone: [facility] 11-06-2022 08:00-0500 Systolic blood pressure 126 mm[Hg] Maryuri Older 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 Work Phone: [facility] 02-20-2022 09:38-0400 Body temperature 96.4 [degF] Robert Mendoza MD Work Phone: [facility] 02-20-2022 09:38-0400 Diastolic blood pressure 74 mm[Hg] Robert Mendoza MD Work Phone: [facility] 02-20-2022 09:38-0400 Heart rate 72 /min Robert Mendoza MD Work Phone: [facility] 02-20-2022 09:38-0400 Respiratory rate 16 /min Robert Mendoza MD Work Phone: [facility] 02-20-2022 09:38-0400 Systolic blood pressure 124 mm[Hg] Robert Menodza MD Work Phone: [facility] Encounters Encounter Date Encounter Type Care Provider Facility Start: 09-16-2023 Telephone encounter Robert hutchins MD Work Phone: [facility] Procedures Date Procedure Procedure Detail Performing Clinician Start: 03-14-2023 Lipid 1996 panel - S nicole or Plasma Robert Mendoza MD Work Phone: Start: 06-01-2018 Colonoscopy Robert Connell MD Work Phone: Start: 01-17-2016 Colonoscopy Robert Connell MD Work Phone: Plan of Treatment Date Care Activity Detail Author Start: 02-21-2032 Urine microalbumin profile [facility] Start: 06-01-2028 Colonoscopy COLONOSCOPY [facility] Start: 06-01-2028 COLORECTAL CANCER SCREENING COLORECTAL CANCER SCREENING [facility] Start: 03-14-2028 Lipid 1996 panel - Serum or Plasma Lipid Screening [facility] Start: 03-14-2028 LIPID SCREEN LIPID SCREEN [facility] Start: 03-14-2028 PROSTATE CANCER SCREENING DISCUSSION PROSTATE CANCER SCREENING DISCUSSION [facility] Start: 02-06-2027 LIPID SCREEN LIPID SCREEN [facility] Start: 03-14-2026 DIABETES SCREEN DIABETES SCREEN [facility] Start: 03-14-2026 Diabetes Screening Diabetes Screening [facility] Start: 01-17-2026 Colonoscopy COLONOSCOPY [facility] Start: 01-17-2026 COLORECTAL CANCER SCREENING COLORECTAL CANCER SCREENING [facility] Start: 11-06-2025 DIABETES SCREEN DIABETES SCREEN [facility] Start: 06-15-2025 Pneumococcal Vaccine: 65+ (3 - PPSV23 or PCV20) Pneumococcal Vaccine: 65+ (3 - PPSV23 or PCV20) [facility] Start: 06-15-2025 PNEUMOCOCCAL: 65+ (#3) PNEUMOCOCCAL: 65+ (#3) [facility] Start: 06-15-2025 PNEUMOCOCCAL: 65+ (2 - PPSV23 or PCV20) PNEUMOCOCCAL: 65+ (2 - PPSV23 or PCV20) [facility] Start: 06-15-2025 PNEUMOCOCCAL: 65+ (3 - PPSV23 if available, else PCV20) PNEUMOCOCCAL: 65+ (3 - PPSV23 if available, else PCV20) [facility] Start: 06-15-2025 PNEUMOCOCCAL: 65+ (3 - PPSV23 or PCV20) PNEUMOCOCCAL: 65+ (3 - PPSV23 or PCV20) [facility] Start: 02-06-2025 DIABETES SCREEN DIABETES SCREEN [facility] Start: 09-03-2024 Annual PCP Team Chronic Disease Visit Annual PCP Team Chronic Disease Visit [facility] Start: 05-09-2024 ANNUAL PCP TEAM CHRONIC DISEASE VISIT ANNUAL PCP TEAM CHRONIC DISEASE VISIT [facility] Start: 03-14-2024 Hepatitis B surface antibody level LDL CHOLESTEROL [facility] Start: 03-14-2024 SERUM CREATININE SERUM CREATININE [facility] Start: 02-27-2024 ANNUAL PCP TEAM CHRONIC DISEASE VISIT ANNUAL PCP TEAM CHRONIC DISEASE VISIT [facility] Start: 02-27-2024 BP CONTROLLED (<130/80) BP CONTROLLED (<130/80) [facility] Start: 11-08-2023 End: 01-08-2024 Comprehensive metabolic 2000 panel - Serum or Plasma COMP METABOLIC PANEL Lab Routine Stage 3a chronic kidney disease (HCC) Expected: 11/08/2023, Expires: 01/08/2024 [facility] Work Phone: Immunizations Immunization Date Immunization Notes Care Provider Leia [email or web address] 11-06-2022 zoster vaccine recombinant Aura Older 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 Work Phone: [facility] Work Phone: 09-25-2022 influenza virus vacc ine, unspecified formulation Robert Mendoza MD Work Phone: [facility] 02-20-2022 tetanus toxoid, redu leonardo diphtheria toxoid, and acellular pertussis vaccine, adsorbed Robert Mendoza MD Work Phone: [facility] Work Phone: 02-20-2022 zoster vaccine recombinant Robert Mendoza MD Work Phone: [facility] Work Phone: 08-31-2021 influenza, injectabl e, quadrivalent, contains preservative Robert Mendoza MD Work Phone: [facility] 02-07-2021 COVID-19 vaccine, fu ll dose (MODERNA) Robert Mendoza MD Work Phone: [facility] 01-11-2021 COVID-19 vaccine, fu ll dose (MODERNA) Robert Mendoza MD Work Phone: [facility] 09-07-2020 influenza, seasonal, injectable Robert Mendoza MD Work Phone: [facility] 09-07-2020 influenza, seasonal, injectable, preservative free Robert Mendoza MD Work Phone: [facility] Work Phone: 06-15-2020 pneumococcal polysaccharide vaccine, 23 valent Robert Mendoza MD Work Phone: [facility] 09-07-2019 influenza, seasonal, injectable, preservative free Robert Mendoza MD Work Phone: [facility] Work Phone: 09-24-2018 influenza, injectabl e, quadrivalent, contains preservative Robert Mendoza MD Work Phone: [facility] 08-19-2017 influenza, seasonal, injectable, preservative free Robert Mendoza MD Work Phone: [facility] 10-07-2016 influenza, seasonal, injectable Robert Mendoza MD Work Phone: [facility] 11-06-2015 pneumococcal conjuga te vaccine, 13 valent Robert Mendoza MD Work Phone: [facility] 10-05-2015 influenza, injectabl e, quadrivalent, contains preservative Robert Mendoza MD Work Phone: [facility] Work Phone: 09-25-2015 influenza, seasonal, injectable, preservative free Robert Mendoza MD Work Phone: [facility] Work Phone: 09-17-2015 pneumococcal conjuga te vaccine, 13 valent Robert Mendoza MD Work Phone: [facility] 10-13-2014 influenza, seasonal, injectable Robert Mendoza MD Work Phone: [facility] 08-24-2014 influenza, seasonal, injectable Robert Mendoza MD Work Phone: [facility] 08-24-2014 influenza, seasonal, injectable, preservative free Robert Mendoza MD Work Phone: [facility] Work Phone: 10-08-2013 influenza virus vacc ine, unspecified formulation Robert Mendoza MD Work Phone: [facility] 08-22-2012 influenza virus vacc ine, unspecified formulation Robert Mendoza MD Work Phone: [facility] Work Phone: 11-01-2011 influenza virus vacc ine, unspecified formulation Robert Mendoza MD Work Phone: [facility] 11-06-2009 novel influenza-H1N1 -09, all formulations Robert Mendoza MD Work Phone: [facility] Work Phone: 11-03-2009 tetanus and diphther ia toxoids, adsorbed, preservative free, for adult use (2 Lf of tetanus toxoid and 2 Lf of diphtheria toxoid) Robert Mendoza MD Work Phone: [facility] Work Phone: Payers Date Payer Category Payer Medicare AETNA MEDICARE A ETNA MEDICARE PPO [id number] 2021-Present [phone] [address] [place] [address] PPO [id number] 2021 Medicare AETNA MEDICARE A ETNA MEDICARE PPO [id number] 2021-Present [phone] [address] [place] [address] PPO [id number] 2021 Medicare [id number] Social History Date Type Detail Facility Start: 02-12-2018 End: 02-26-2023 Tobacco smoking status NHIS Never smoked tobacco [facility] Work Phone: Start: 08-31-2021 End: 05-09-2023 Alcohol intake Current non-drinker of alcohol (finding) [facility] Start: 12-12-2020 End: 11-02-2022 History SDOH Alcohol Frequency 1 [facility] Start: 12-12-2020 History SDOH Alcohol Std Drinks 98 [facility] Start: 12-12-2020 End: 11-02-2022 History SDOH Social Connections Phone 4 [facility] Start: 12-12-2020 End: 11-02-2022 History SDOH Social Connections Get Together 2 [facility] Start: 12-12-2020 End: 11-02-2022 History SDOH Social Connections Living 3 [facility] Start: 12-12-2020 End: 11-02-2022 History SDOH Physical Activity DPW 0 [facility] Start: 12-12-2020 End: 11-02-2022 History SDOH Financial 5 [facility] Start: 12-12-2020 Education 12 [facility] Start: 1955 Sex Assigned At Male [facility] Start: 02-10-2022 End: 02-20-2022 Exposure to SARS-CoV-2 (event) Not sure [facility] Work Phone: Start: 02-12-2018 End: 02-26-2023 Tobacco use and exposure Smokeless tobacco non-user [facility] Start: 11-02-2022 End: 05-09-2023 History of Social function [facility] Start: 11-02-2022 End: 05-09-2023 Social connection and isolation panel [facility] Do you belong to any clubs or organizations such as buddhism groups, unions, fraternal or athletic groups, or school groups? No [facility] Are you now , , , , never or living with a partner? [facility] How often to you hav e a drink containing alcohol? Never [facility] How many standard dr inks containing alcohol do you have on a typical day? Patient does not drink [facility] How hard is it for y ou to pay for the very basics like food, housing, medical care, and heating Not very hard [facility] Do you feel stress - tense, restless, nervous, or anxious, or unable to sleep at night because your mind is troubled all the time - these days [OSQ] To some extent [facility] (I/We) worried wheroslyn er (my/our) food would run out before (I/we) got money to buy more. Never true [facility] Start: 01-18-2022 Gender identity Identifies as male gender (finding) [facility] Start: 01-18-2022 Sexual orientation Heterosexual (finding) [facility] Clinical Notes 05-19-2019 to 09-17-2023 Telephone [...] on fluid restrictions while he was at [facility] last month. Nurse Sakshi states pt is still following this & is asking if pt is to continue restricting fluids? Pt has a kidney stone & having surgery to remove on 10/03/23. Sakshi will not be avail tomorrow, call the office at [phone]. She is aware pcp will return to the office 09/17/23. Dayanna Alanis LPN documented in this encounter [facility] 09-10-2023 Miscellaneous Notes David notified. Okay for orders below Aura Langford APRN.TYPE ROLLING MACHINE OPERATOR David RN with [facility] calls to request a continuation of nursing frequency order for once weekly x 2 more weeks for further monitoring. David requests order be called to [phone]. Deedee Mederos RN documented in this encounter [facility] 09-03-2023 Note HNO ID: [id number] Author: Robert Mendoza MD Service: ? Author Type: Physician Type: Progress Notes Filed: 09/04/2023 7:11 AM Note Text: This note was created using Tutumriter. Subjective Patient presents with: [facility] F/U Dusty Barney is a 68 [...] Anxiety Disorder, Unspecified Athscl Heart Disease of [place] Coronary Artery W/O Ang Pctrs Chronic Fatigue Syndrome Dependence On Wheelchair Obstructive Sleep Apnea Syndrome Ostium Secundum Type Atrial Septal Defect Personal History of Malignant Neoplasm of Bladder Vitamin D Deficiency Current Use of Computed Tomography Technologist Anticoagulation Stage 3a Chronic Kidney Disease (Hcc) [...] A DAY February 04, 2020 1:11pm 02-04-2020 [facility] ([id number]) Sennosides 8.6 mg cap Take by mouth. [...] Edema present. Neurolog (more content not included)... [facility] 09-01-2023 Miscellaneous Notes Third attempt to reach patient and by phone with no answer. Line rang several times and then discontinued x2, unable to leave VM. message sent requesting for patient/ to call office. HAI Mccann TC to patient and - unable to reach x2. Will try again later. Please call for update on BM Aura Langford APRN.VERNON Charlette from [facility] Home Health calling patient was discharged from [facility] yesterday, had respiratory failure, aspiration pneumonia. Plan for care home visits 1 visit this week, then 2 [...] Ni. Please advise documented in this encounter [facility] 09-01-2023 Miscellaneous Notes Ute HERNANDEZ from [facility] calling with POC for pt. OT will be seeing pt 2x per week for 3 wks then 1x per week for 1 wk with focus on strengthening and transfers. BP this morning was 108/95. Nurse will be going out later today. Just FYI. No need to call back unless concerns or changes. documented in this encounter [facility] 08-29-2023 Miscellaneous Notes Lobo with [facility] calling with plan of care for patient: Will see patient 2 times per week for 4 weeks for functional mobility. No call back needed. Staci Porras RN documented in this encounter [facility] 08-18-2023 Miscellaneous Notes Lisa from [facility] calls to report that patient's oxygen [...] Clarissa Peña RN documented in this encounter [facility] 08-15-2023 Miscellaneous Notes Called and left detailed message on secure VM with Provider message below. If questions Glenna to call office back and speak with [facility] Triage Nurse. Zuleima Leal Ma Helder Langford APRN.CNP Glenna- Nurse- [facility], reporting POC: she did start of care, and plans to see patient for disease and medication education 1 x week for 1 week, then 2 times week for 3 week. Please phone Glenna with verbal approval: [phone] documented in this encounter [facility] 08-13-2023 Miscellaneous Notes Call placed to Migdalia with [facility] and verbal ok given for HH, SN, PT, OT orders. Deedee Mederos RN Helder Langford APRN.VERNON Migdalia with [facility] calls to see if provider will follow orders for SN, PT, and OT. Patient to be discharging from [facility] tomorrow 08/14/2023 after being treated for UTI and pneumonia. Please call Migdalia back at [phone]. Ok to leave a message on secure [employer]. Deedee Mederos RN documented in this encounter [facility] 07-08-2023 Miscellaneous Notes Pcp rec'd via fax from [facility] enhancing mobility for pt. He completed these and they have been faxed back to Jessa. documented in this encounter [facility] 05-13-2023 Miscellaneous Notes Patient has been [...] Maritza Muro LPN documented in this encounter [facility] 05-09-2023 Note HNO ID: [id number] Author: Robert Mendoza MD Service: ? Author Type: Physician Type: Progress Notes Filed: 05/09/2023 9:16 AM Note Text: This note was created using iContact. Subjective Dusty Barney is a 67 year old male here with spouse. Conditions were stable. He had no recent urinary tract infection. We reviewed labs from February. He was still waiting for his new wheelchair that can elevate his legs to help swelling. His specialists: Neurology: Dr. Wolff [facility] Cardiology: [facility] Urology: Dr. Bernardo chronic [...] Anxiety Disorder, Unspecified Athscl Heart Disease of [place] Coronary Artery W/O Ang Pctrs Chronic Fatigue Syndrome Dependence On Wheelchair Obstructive Sleep Apnea Syndrome Ostium Secundum Type Atrial Septal Defect Personal History of Malignant Neoplasm of Bladder Vitamin D Deficiency Current Use of Correction Anticoagulation Stage 3a Chronic Kidney Disease (Hcc) [...] A DAY February 04, 2020 1:11pm 02-04-2020 [facility] ([id number]) sodium bicarbonate 650 mg tablet Take 650 [...] METABOLIC PANEL 3. Athscl heart disease of [place] coronary artery w/o ang pctrs - ICD9: 414.01, ICD10: I25.10 Stable. 4. Essential hypertension, benign - ICD9: 401.1, ICD10: I10 - Controlled 5. Obstructive sleep apnea syndrome - ICD9: 327.23, ICD10: G47.33 Using and benefiting from regular CPAP use. Robert Mendoza MD [facility] 05-09-2023 Instructions Robert Mendoza MD - 05/09/2023 9:10 AM EDT FASTING BLOOD CHEMISTRY IN 6 MONTHS. COPY OF ADVANCED DIRECTIVE. documented in this encounter [facility] 05-09-2023 History of Presen t illness Narrative This note was created using iContact. Subjective Dusty Barney is a 67 year old male here with spouse. Conditions were stable. He had no recent urinary tract infection. We reviewed labs from February. He was still waiting for his new wheelchair that can elevate his legs to help swelling. His specialists: Neurology: Dr. Wolff [facility] Cardiology: [facility] Urology: Dr. Bernardo chronic [...] Anxiety Disorder, Unspecified Athscl Heart Disease of [place] Coronary Artery W/O Ang Pctrs Chronic Fatigue Syndrome Dependence On Wheelchair Obstructive Sleep Apnea Syndrome Ostium Secundum Type Atrial Septal Defect Personal History of Malignant Neoplasm of Bladder Vitamin D Deficiency Current Use of Correction Anticoagulation Stage 3a Chronic Kidney Disease (Hcc) [...] DAY 60 February 04, 2020 1:11pm 02-04-2020 [facility] ([id number]) sodium bicarbonate 650 mg tablet Take 650 [...] METABOLIC PANEL 3. Athscl heart disease of [place] coronary artery w/o ang pctrs - ICD9: 414.01, ICD10: I25.10 Stable. 4. Essential hypertension, benign - ICD9: 401.1, ICD10: I10 - Controlled 5. Obstructive sleep apnea syndrome - ICD9: 327.23, ICD10: G47.33 Using and benefiting from regular CPAP use. Robert Mendoza MD documented in this encounter [facility] documented in this encounter [facility]04-05-2023 NoteHNO ID: [id number] Author: Robert Mendoza MD Service: ? Author Type: Physician Type: Progress Notes Filed: 03/27/2023 2:39 PM Note Text: This note was created using Thinglinkter. Subjective Dusty Barney is a 67 year old male here with spouse. He needed orders for reevaluation of his motorized wheelchair sent to [facility]. His conditions were stable, and he had no acute concerns. Handicap parking also needed renewed. His specialists: Neurology: Dr. Wolff [facility] Cardiology: [facility] Urology: Dr. 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 [facility]04-05-2023 History of Present illness Narrative* Robert Mendoza MD - 02/26/2023 9:47 AM EDT This note was created using NoteWriter. Subjective Dusty Barney is a 67 year old male here with spouse. He needed orders for reevaluation of his motorized wheelchair sent to [facility]. His conditions were stable, and he had no acute concerns. Handicap parking also needed renewed. His specialists: Neurology: Dr. Wolff [facility] Cardiology: [facility] Urology: Dr. Bernardo chronic [...] Anxiety Disorder, Unspecified Athscl Heart Disease of [place] Coronary Artery W/O Ang Pctrs Chronic Fatigue Syndrome Dependence On Wheelchair Obstructive Sleep Apnea Syndrome Ostium Secundum Type Atrial Septal Defect Personal History of Malignant Neoplasm of Bladder Vitamin D Deficiency Current Use of Correction Anticoagulation Stage 3a Chronic Kidney Disease (Hcc) [...] A DAY February 04, 2020 1:11pm 02-04-2020 [facility] ([id number]) sodium bicarbonate 650 mg tablet Take 650 [...] ICD9: V46.3, ICD10: Z99.3 [facility] Handicap [facility] letter. 6. Paroxysmal atrial fibrillation (HCC) - ICD9: 427.31, ICD10: I48.0 Controlled. 7. Vitamin D deficiency - ICD9: 268.9, ICD10: E55.9 - VITAMIN D 25 HYDROXY 8. Screening for prostate cancer - ICD9: V76.44, ICD10: Z12.5 - Risks/benefits of prostate cancer screening discussed. screening PSA ordered - PSA/PROSTSPECAG SCRN Robert [facility]endoza MD [facility] Miscellaneous Notes* Telephone Encounter - Maritza [...] you. Maritza Muro LPN [facility]22 NoteHNO ID: [id number] Author: Maryuri Langford APRN.TYPE ROLLING MACHINE OPERATOR Service: ? Author Type: Nurse Practitioner Type: Progress Notes Filed: 11/06/2022 8:35 AM Note Text: Medicare Yearly Visit Medical B eligibilty date 2018 Date of last exam 08/31/21 PAST MEDICAL HISTORY Diagnosis Date Anxiety disorder, unspecified 10/21/2017 Athscl heart disease of [place] coronary artery w/o ang pctrs 10/21/2017 Cardiogenic [...] FLX DX W/COLLJ SPEC WHEN PFRMD 06/01/2018 [facility]-repeat 10 years-05/2028 CYSTO W LITHOTRIPSY Left 02/24/15 [...] seen: Neurology: Dr. [facility] Cardiology: [facility] Urology: Dr. Bernardo chronic [...] treatment plan. Maryuri Langford, (more content not included)...[facility]12-14-2022 History of Present illness Narrative* Maryuri Langford, 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 - 11/06/2022 7:59 AM EST Medicare Yearly Visit Medical B eligibilty date 2018 Date of last exam 08/31/21 PAST MEDICAL HISTORY Diagnosis Date Anxiety disorder, unspecified 10/21/2017 Athscl heart disease of [place] coronary artery w/o ang pctrs 10/21/2017 Cardiogenic [...] FLX DX W/COLLJ SPEC WHEN PFRMD 06/01/2018 [facility]-repeat 10 years-05/2028 CYSTO W LITHOTRIPSY Left 02/24/15 [...] seen: Neurology: Dr. Wolff [facility] Cardiology: [facility] Urology: Dr. Bernardo chronic [...] plan. Maryuri Langford APRN.CNP [facility] Miscellaneous Notes* Telephone Encounter - Alexander [...] pharmacy. Alexander Kearney Ma [facility] History of Present illness Narrative* Yovana Will LPN - 07/05/2022 11:25 AM EDT Message left at pts home number to return call to a nurse to complete TCM note and arrange hospitalfollow up [facility] Miscellaneous Notes* Telephone Encounter - Maritza [...] completed prior to appointment? [facility] History of Present illness Narrative* Robert Mendoza MD - 02/20/2022 10:05 AM EDT This note was created using Thinglinkter. Subjective Dusty Barney is a 66 year [...] lb. Other specialists: Dr. Mathew Roy, [facility]. Dr. Ni, pulmonary. Dr. 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 Vitamin D Deficiency Hypercalcemia Current Use of Correction Anticoagulation Stage 3a Chronic Kidney Disease (Hcc) [...] A DAY February 04, 2020 1:11pm 02-04-2020 [facility] ([id number]) sodium bicarbonate 650 mg tablet Take 650 [...] control [facility]endoza [facility] of [facility] Narrative* Problem [...] of this encounter (statuses as of 02/26/2023) [facility] Narrative* Problem [...] of this encounter (statuses as of 05/09/2023) [facility] Narrative* Problem [...] of this encounter (statuses as of 05/13/2023) [facility] Narrative* Problem Noted Date Diagnosed Date Resolved Date Hypercalcemia 06/15/2019 02/26/2023 Gastrointestinal hemorrhage 05/19/2019 12/10/2019 Pneumonia 05/19/2019 06/21/2021 Sepsis 05/19/2019 12/10/2019 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 11/12/2017 06/21/2021 Overview: dx 2014 Acute respiratory failure 10/21/2017 Other pulmonary embolism wit hout acute cor pulmonale 10/21/2017 06/21/2021 Cardiogenic shock 10/21/2017 06/21/2021 Dyspnea 09/04/2017 06/21/2021 documented as of this encounter (statuses as of 07/08/2023) [facility] Narrative* Problem Noted Date Diagnosed Date Resolved Date Hypercalcemia 06/15/2019 02/26/2023 Gastrointestinal hemorrhage 05/19/2019 12/10/2019 Pneumonia 05/19/2019 06/21/2021 Sepsis 05/19/2019 12/10/2019 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 11/12/2017 06/21/2021 Overview: dx 2014 Acute respiratory failure 10/21/2017 Other pulmonary embolism wit hout acute cor pulmonale 10/21/2017 06/21/2021 Cardiogenic shock 10/21/2017 06/21/2021 Dyspnea 09/04/2017 06/21/2021 documented as of this encounter (statuses as of 08/13/2023) [facility] Narrative* Problem Noted Date Diagnosed Date Resolved Date Hypercalcemia 06/15/2019 02/26/2023 Gastrointestinal hemorrhage 05/19/2019 12/10/2019 Pneumonia 05/19/2019 06/21/2021 Sepsis 05/19/2019 12/10/2019 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 11/12/2017 06/21/2021 Overview: dx 2014 Acute respiratory failure 10/21/2017 Other pulmonary embolism wit hout acute cor pulmonale 10/21/2017 06/21/2021 Cardiogenic shock 10/21/2017 06/21/2021 Dyspnea 09/04/2017 06/21/2021 documented as of this encounter (statuses as of 08/15/2023) [facility]* Problem Noted Date Diagnosed Date Resolved Date Hypercalcemia 06/15/2019 02/26/2023 Gastrointestinal hemorrhage 05/19/2019 12/10/2019 Pneumonia 05/19/2019 06/21/2021 Sepsis 05/19/2019 12/10/2019 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 11/12/2017 06/21/2021 Overview: dx 2014 Acute respiratory failure 10/21/2017 Other pulmonary embolism wit hout acute cor pulmonale 10/21/2017 06/21/2021 Cardiogenic shock 10/21/2017 06/21/2021 Dyspnea 09/04/2017 06/21/2021 documented as of this encounter (statuses as of 08/19/2023) [facility]* Problem Noted Date Diagnosed Date Resolved Date Hypercalcemia 06/15/2019 02/26/2023 Gastrointestinal hemorrhage 05/19/2019 12/10/2019 Pneumonia 05/19/2019 06/21/2021 Sepsis 05/19/2019 12/10/2019 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 11/12/2017 06/21/2021 Overview: dx 2014 Acute respiratory failure 10/21/2017 Other pulmonary embolism wit hout acute cor pulmonale 10/21/2017 06/21/2021 Cardiogenic shock 10/21/2017 06/21/2021 Dyspnea 09/04/2017 06/21/2021 documented as of this encounter (statuses as of 08/30/2023) [facility] Problem Noted Date Diagnosed Date Resolved Date Hypercalcemia 06/15/2019 02/26/2023 Gastrointestinal hemorrhage 05/19/2019 12/10/2019 Pneumonia 05/19/2019 06/21/2021 Sepsis 05/19/2019 12/10/2019 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 11/12/2017 06/21/2021 Overview: dx 2015 Acute respiratory failure 10/21/2017 Other pulmonary embolism wit hout acute cor pulmonale 10/21/2017 06/21/2021 Cardiogenic shock 10/21/2017 06/21/2021 Dyspnea 09/04/2017 06/21/2021 documented as of this encounter (statuses as of 09/01/2023) [facility] Problem Noted Date Diagnosed Date Resolved Date Hypercalcemia 06/15/2019 02/26/2023 Gastrointestinal hemorrhage 05/19/2019 12/10/2019 Pneumonia 05/19/2019 06/21/2021 Sepsis 05/19/2019 12/10/2019 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 11/12/2017 06/21/2021 Overview: dx 2015 Other pulmonary embolism wit hout acute cor pulmonale 10/21/2017 06/21/2021 Cardiogenic shock 10/21/2017 06/21/2021 Dyspnea 09/04/2017 06/21/2021 documented as of this encounter (statuses as of 09/10/2023) [facility]* Problem Noted Date Diagnosed Date Resolved Date Hypercalcemia 06/15/2019 02/26/2023 Gastrointestinal hemorrhage 05/19/2019 12/10/2019 Pneumonia 05/19/2019 06/21/2021 Sepsis 05/19/2019 12/10/2019 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 11/12/2017 06/21/2021 Overview: dx 2015 Other pulmonary embolism wit hout acute cor pulmonale 10/21/2017 06/21/2021 Cardiogenic shock 10/21/2017 06/21/2021 Dyspnea 09/04/2017 06/21/2021 documented as of this encounter (statuses as of 09/18/2023) [facility]* Problem Noted Date Diagnosed Date Resolved Date Hypercalcemia 06/15/2019 02/26/2023 Gastrointestinal hemorrhage 05/19/2019 12/10/2019 Pneumonia 05/19/2019 06/21/2021 Sepsis 05/19/2019 12/10/2019 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 11/12/2017 06/21/2021 Overview: dx 2015 Other pulmonary embolism wit hout acute cor pulmonale 10/21/2017 06/21/2021 Cardiogenic shock 10/21/2017 06/21/2021 Dyspnea 09/04/2017 06/21/2021 documented as of this encounter (statuses as of 10/15/2023) [facility] Problem [...] of this encounter (statuses as of 02/20/2022) [facility] Problem [...] of this encounter (statuses as of 06/25/2022) [facility] Problem [...] of this encounter (statuses as of 07/05/2022) [facility] Problem [...] of this encounter (statuses as of 07/31/2022) [facility] Problem [...] of this encounter (statuses as of 11/06/2022) [facility] Problem [...] of this encounter (statuses as of 11/13/2022) [facility]* Problem [...] of this encounter (statuses as of 01/07/2023) [facility] note* Diagnosis Dizziness, nonspecific- Primary Dizziness and giddiness Multiple opens wound of lower extremity, unspecified laterality, subsequent encounter Left hemiparesis (HCC) Hemiplegia, unspecified, affecting unspecified side Multiple sclerosis (HCC) Multiple sclerosis Chronic fatigue syndrome Need for vaccination Need for prophylactic vaccination and inoculation against unspecified single disease Essential hypertension, benign documented in this encounter [facility] note* Diagnosis Medicare annual wellness visit, subsequent- Primary Routine general medical examination at a health care facility Encounter for screening for diabetes mellitus Screening for diabetes mellitus [facility]* Diagnosis GERD without esophagitis Esophageal reflux documented in this encounter [facility] note* Diagnosis Left hemiparesis (HCC)- Primary Hemiplegia, unspecified, affecting unspecified side Multiple sclerosis (HCC) Multiple sclerosis Essential hypertension, benign Episode of recurrent major depressive disorder, unspecified depression episode severity (HCC) Dependence on wheelchair Paroxysmal atrial fibrillation (HCC) Atrial fibrillation Vitamin D deficiency Unspecified vitamin D deficiency Screening for prostate cancer Special screening for malignant neoplasm of prostate documented in this encounter [facility] Reason for Referral Specialty Diagnoses / Procedures Referred By Joseph t Referred To Contact Diagnoses Dizziness, nonspecific 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, 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, 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 [address] [place] [address] Referral ID Status Reason Start Date Expiration Date V isits Requested Visits Authorized [id number] Authorized 11/24/2021 11/23/2023 1 1 Summary Purpose [...] or prosecute any alcohol or drug abuse patient.[facility] the event this information is protected by the Federal Confidentiality of Alcohol and Drug Abuse Patient Records regulations: The Federal rules restrict any use of the information to criminally investigate or prosecute any alcohol or drug abuse patient.[facility] the event this information is protected by the Federal Confidentiality of Alcohol and Drug Abuse Patient Records regulations: The Federal rules restrict any use of the information to criminally investigate or prosecute any alcohol or drug abuse patient.[facility] the event this information is protected by the Federal Confidentiality of Alcohol and Drug Abuse Patient Records regulations: The Federal rules restrict any use of the information to criminally investigate or prosecute any alcohol or drug abuse patient.[facility]In the event this information is protected by the Federal Confidentiality of Alcohol and Drug Abuse Patient Records regulations: The Federal rules restrict any use of the information to criminally investigate or prosecute any alcohol or drug abuse patient.[facility] the event this information is protected by the Federal Confidentiality of Alcohol and Drug Abuse Patient Records regulations: The Federal rules restrict any use of the information to criminally investigate or prosecute any alcohol or drug abuse patient.[facility] the event this information is protected by the Federal Confidentiality of Alcohol and Drug Abuse Patient Records regulations: The Federal rules restrict any use of the information to criminally investigate or prosecute any alcohol or drug abuse patient.[facility] the event this information is protected by the Federal Confidentiality of Alcohol and Drug Abuse Patient Records regulations: The Federal rules restrict any use of the information to criminally investigate or prosecute any alcohol or drug abuse patient.[facility] the event this information is protected by the Federal Confidentiality of Alcohol and Drug Abuse Patient Records regulations: The Federal rules restrict any use of the information to criminally investigate or prosecute any alcohol or drug abuse patient.[facility] the event this information is protected by the Federal Confidentiality of Alcohol and Drug Abuse Patient Records regulations: The Federal rules restrict any use of the information to criminally investigate or prosecute any alcohol or drug abuse patient.[facility] the event this information is protected by the Federal Confidentiality of Alcohol and Drug Abuse Patient Records regulations: The Federal rules restrict any use of the information to criminally investigate or prosecute any alcohol or drug abuse patient.[facility]In the event this information is protected by the Federal Confidentiality of Alcohol and Drug Abuse Patient Records regulations: The Federal rules restrict any use of the information to criminally investigate or prosecute any alcohol or drug abuse patient.[facility]In the event this information is protected by the Federal Confidentiality of Alcohol and Drug Abuse Patient Records regulations: The Federal rules restrict any use of the information to criminally investigate or prosecute any alcohol or drug abuse patient.[facility]In the event this information is protected by the Federal Confidentiality of Alcohol and Drug Abuse Patient Records regulations: The Federal rules restrict any use of the information to criminally investigate or prosecute any alcohol or drug abuse patient.[facility]In the event this information is protected by the Federal Confidentiality of Alcohol and Drug Abuse Patient Records regulations: The Federal rules restrict any use of the information to criminally investigate or prosecute any alcohol or drug abuse patient.[facility]In the event this information is protected by the Federal Confidentiality of Alcohol and Drug Abuse Patient Records regulations: The Federal rules restrict any use of the information to criminally investigate or prosecute any alcohol or drug abuse patient.[facility]In the event this information is protected by the Federal Confidentiality of Alcohol and Drug Abuse Patient Records regulations: The Federal rules restrict any use of the information to criminally investigate or prosecute any alcohol or drug abuse patient.[facility]In the event this information is protected by the Federal Confidentiality of Alcohol and Drug Abuse Patient Records regulations: The Federal rules restrict any use of the information to criminally investigate or prosecute any alcohol or drug abuse patient.[facility] HospitalIn the event this information is protected by the Federal Confidentiality of Alcohol and Drug Abuse Patient Records regulations: The Federal rules restrict any use of the information to criminally investigate or prosecute any alcohol or drug abuse patient.[facility] Reason for Visit (unrecogniz ed section [...] Reason Comments Forms Reason Comments Nursing POC. 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 Start Date End Date Robert Mendoza MD [address] [facility] [place] [address] PCP - General Internal Medicine 06/21/21 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 Start Date End Date Robert Mendoza MD [address] [facility] [place] [address] PCP - General Internal Medicine 06/21/21 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 Start Date End Date Robert Mendoza MD [address] [facility] [place] [address] PCP - General Internal Medicine 06/21/21 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 Start Date End Date Robert Mendoza MD [address] [facility] [place] [address] PCP - General Internal Medicine 06/21/21 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 Start Date End Date Robert Mendoza MD [address] [facility] [place] [address] PCP - General Internal Medicine 06/21/21 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 Start Date End Date Robert Mendoza MD [address] [facility] [place] [address] PCP - General Internal Medicine 06/21/21 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 Start Date End Date Robert Mendoza MD [address] [facility] [place] [address] PCP - General Internal Medicine 06/21/21 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 [employer] [facility]. provides no warranty or guarantee of the accuracy or completeness of information in this document.
== END | disposition home or self-care (01) ==
LOC: CT 08:09
PROVIDERS: PCP Internal Medicine; Referring Provider Urology; Visit Provider Urology
DX: N20.0 Calculus of kidney (principal)
CPT/HCPCS: 74176

== ENCOUNTER → 2024-01-05 | Outpatient (CLI) | payer MEDICARE, SELFPAY ==
--- OUTSIDE RECORDS SUMMARY | 2024-01-05 09:17 | XMS RPT_ITS | CCD ---
Author Name Unknown Address [address] [place] [address] Organization [facility] Care Team Providers Care Exchange Underwriting Consultant Name Role Phone Robert Mendoza MD Primary Care Provider ROBERT MENDOZA Attending Unavailable ROBERT MENDOZA Referring Unavailable ROBERT MENDOZA Primary Care Unavailable ROBERT MENDOZA Primary Care Unavailable AURA LOZANO Attending Unavailable ROBERT MENDOZA Attending Unavailable ROBERT MENDOZA Primary Care Unavailable ROBERT MENDOZA Attending Unavailable ROBERT MENDOZA Primary Care Unavailable ROBERT MENDOZA Referring Unavailable [...] Sig (Original) apixaban 5 mg oral tablet (20 sources) Factor Xa Inhibitor Start: 03-13-2020 take 1 tablet by mouth twice daily apixaban (ELIQUIS) 5 mg tab(s) Indications: Chronic atrial fibrillation (HCC) Take 1 tablet by mouth twice daily. 180 tablet 3 03/13/2020 Active Problems Active Problems Problem Classification Problem Date Documented Date Episodic/Chronic Anxiety disorders (20 sources) Anxiety disorder; Translations: [Anxiety disorder, unspecified] Onset: 10-21-2017 05-19-2019 Chronic Cardiac and circulatory congenital anomalies (20 sources) Persistent ostium secundum; Translations: [Atrial septal defect] Onset: 05-19-2019 05-19-2019 Chronic Cardiac dysrhythmias (14 sources) Paroxysmal atrial fibrillation; Translations: [Paroxysmal atrial fibrillation] Onset: 10-01-2017 Chronic Chronic kidney disease (20 sources) Chronic kidney disease stage 3A ; Translations: [Stage 3a chronic kidney disease] Onset: 12-14-2020 12-14-2020 Chronic Congestive heart failure; nonhypertensive (4 sources) Symptomatic congestive heart failure; Translations: [Unspecified diastolic (congestive) heart failure] Onset: 09-03-2023 09-03-2023 Chronic Coronary atherosclerosis and other heart disease (20 sources) Coronary atherosclerosis; Translations: [Atherosclerotic heart disease of [place] coronary artery without angina pectoris] Onset: 10-21-2017 [...] Episodic Other diseases of bladder and urethra (20 sources) Neurogenic bladder; Translations: [Neuromuscular dysfunction of [...] Classification Problem Date Documented Da te Episodic/Chronic Acute and unspecified renal failure (4 sources) Acute injury of kidney; Translations: [Acute kidney failure, unspecified] Onset: 09-03-2023 09-03-2023 Episodic Cancer of bladder (20 sources) H/O: malignant neoplasm; Translations: [Personal history of malignant neoplasm of bladder] Onset: 10-21-2017 05-19-2019 Episodic Conditions associated with dizziness or vertigo (20 sources) Dizziness; Translations: [Dizziness and giddiness] Onset: 02-20-2022 Episodic Other aftercare (20 sources) Long-term current use of anticoagulant; Translations: [terminologist (current) use of anticoagulants] Onset: 12-22-2019 12-22-2019 Episodic Other diseases of kidney and ureters (20 sources) Hydronephrosis; Translations: [Unspecified hydronephrosis] Onset: 12-14-2020 12-14-2020 Episodic Other screening for suspected conditions (not mental disorders or infectious disease) (3 sources) Patient encounter status; Translations: [Encounter for screening for diabetes mellitus] Onset: 03-14-2023 Episodic Pulmonary heart disease (20 sources) H/O: pulmonary embolus; Translations: [Personal history of pulmonary embolism] Onset: 11-12-2017 11-12-2017 Episodic Respiratory failure; insufficiency; arrest (adult) (4 sources) Acute respiratory failure; Translations: [Acute respiratory failure with hypoxia] Onset: 10-21-2017 09-03-2023 Episodic Urinary tract infections (20 sources) Recurrent urinary tract infection; Translations: [Urinary tract infection, site not specified] Onset: 02-21-2016 02-21-2016 Episodic Results Test Name Value Interpretation Reference Range Facil ity Vital Signs Date Time Vital Sign Value Performing Clinician Vitaly mejia 01-02-2024 12:10-0500 Body height 198.1 cm Aura Blake 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.OPTICAL EFFECTS LINE UP PERSON Work Phone: [facility] 01-02-2024 12:10-0500 Body weight 136.08 kg Aura Blake 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.OPTICAL EFFECTS LINE UP PERSON Work Phone: [facility] 01-02-2024 12:10-0500 Diastolic blood pressure 80 mm[Hg] Aura Blake 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.OPTICAL EFFECTS LINE UP PERSON Work Phone: [facility] 01-02-2024 12:10-0500 Heart rate 76 /min Aura Blake 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.OPTICAL EFFECTS LINE UP PERSON Work Phone: [facility] 01-02-2024 12:10-0500 Respiratory rate 20 /min Aura Blake 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.OPTICAL EFFECTS LINE UP PERSON Work Phone: [facility] 01-02-2024 12:10-0500 Systolic blood pressure 116 mm[Hg] Aura Blake 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.OPTICAL EFFECTS LINE UP PERSON Work Phone: [facility] 05-09-2023 08:51-0400 Diastolic blood pressure 80 mm[Hg] Robert Mendoza MD Work Phone: [facility] 05-09-2023 08:51-0400 Heart rate 80 /min Robert Mendoza MD Work Phone: [facility] 05-09-2023 08:51-0400 Respiratory rate 16 /min Robert Mendoza MD Work Phone: [facility] 05-09-2023 08:51-0400 Systolic blood pressure 110 mm[Hg] Robert Mendoza MD Work Phone: [facility] 02-26-2023 09:24-0400 Diastolic blood pressure 68 mm[Hg] Robert Mendoza MD Work Phone: [facility] 02-26-2023 09:24-0400 Heart rate 92 /min Robert Mendoza MD Work Phone: [facility] 02-26-2023 09:24-0400 Respiratory rate 16 /min Robert Mendoza MD Work Phone: [facility] 02-26-2023 09:24-0400 Systolic blood pressure 120 mm[Hg] Robert Mendoza MD Work Phone: [facility] 11-06-2022 08:00-0500 Body temperature 97.39 [degF] Maryuri Older 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.OPTICAL EFFECTS LINE UP PERSON Work Phone: [facility] 11-06-2022 08:00-0500 Diastolic blood pressure 78 mm[Hg] Maryuri Older 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.OPTICAL EFFECTS LINE UP PERSON Work Phone: [facility] 11-06-2022 08:00-0500 Heart rate 88 /min Maryuri Older 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.OPTICAL EFFECTS LINE UP PERSON Work Phone: [facility] 11-06-2022 08:00-0500 Respiratory rate 16 /min Maryuri Older 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.OPTICAL EFFECTS LINE UP PERSON Work Phone: [facility] 11-06-2022 08:00-0500 Systolic blood pressure 126 mm[Hg] Maryuri Older 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.OPTICAL EFFECTS LINE UP PERSON Work Phone: [facility] 02-20-2022 09:38-0400 Body temperature 96.4 [degF] Robert Mendoza MD Work Phone: [facility] 02-20-2022 09:38-0400 Diastolic blood pressure 74 mm[Hg] Robert Mendoza MD Work Phone: [facility] 02-20-2022 09:38-0400 Heart rate 72 /min Robert Mendoza MD Work Phone: [facility] 02-20-2022 09:38-0400 Respiratory rate 16 /min Robert Mendoza MD Work Phone: [facility] 02-20-2022 09:38-0400 Systolic blood pressure 124 mm[Hg] Robert Mendoza MD Work Phone: [facility] Encounters Encounter Date Encounter Type Care Provider Facility Start: 01-02-2024 End: 01-02-2024 ambulatory ROBERT MENDOZA Facility:[facility] Start: 01-02-2024 End: 01-02-2024 Patient encounter procedure Aura Lozano 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.OPTICAL EFFECTS LINE UP PERSON Work Phone: [facility] Procedures Date Procedure Procedure Detail Performing Clinician Start: 03-14-2023 Lipid 1996 panel - S nicole or Plasma Robert Mendoza MD Work Phone: Start: 06-01-2018 Colonoscopy Robert Connell MD Work Phone: Start: 01-17-2016 Colonoscopy Robert Connell MD Work Phone: Plan of Treatment Date Care Activity Detail Author Start: 02-21-2032 Urine microalbumin profile [facility] Start: 06-01-2028 Colonoscopy COLONOSCOPY [facility] Start: 06-01-2028 COLORECTAL CANCER SCREENING COLORECTAL CANCER SCREENING [facility] Start: 03-14-2028 Lipid 1996 panel - S nicole or Plasma Lipid Screening [facility] Start: 03-14-2028 Lipid panel Lipid Screening [facility] Start: 03-14-2028 LIPID SCREEN LIPID SCREEN [facility] Start: 03-14-2028 PROSTATE CANCER SCRE ENING DISCUSSION PROSTATE CANCER SCREENING DISCUSSION [facility] Start: 03-14-2028 Prostate specific an tigen measurement Prostate Cancer Screening Discussion [facility] Start: 02-06-2027 LIPID SCREEN LIPID SCREEN [facility] Start: 03-14-2026 DIABETES SCREEN DIABETES SCREEN [facility] Start: 03-14-2026 Diabetes Screening Diabetes Screenin g [facility] Start: 01-17-2026 Colonoscopy COLONOSCOPY [facility] Start: 01-17-2026 COLORECTAL CANCER SCREENING COLORECTAL CANCER SCREENING [facility] Start: 01-17-2026 Screening for malign ant neoplasm of colon [facility] Start: 11-06-2025 DIABETES SCREEN DIABETES SCREEN [facility] Start: 06-15-2025 Pneumococcal Vaccine : 65+ (3 - PPSV23 or PCV20) Pneumococcal Vaccine: 65+ (3 - PPSV23 or PCV20) [facility] Start: 06-15-2025 Pneumococcal Vaccine : 65+ (3 of 3 - PPSV23 or PCV20) Pneumococcal Vaccine: 65+ (3 of 3 - PPSV23 or PCV20) [facility] Start: 06-15-2025 PNEUMOCOCCAL: 65+ (#3) PNEUMOCOCCAL: 65+ (#3) [facility] Start: 06-15-2025 PNEUMOCOCCAL: 65+ (2 - PPSV23 or PCV20) PNEUMOCOCCAL: 65+ (2 - PPSV23 or PCV20) [facility] Start: 06-15-2025 PNEUMOCOCCAL: 65+ (3 - PPSV23 if available, else PCV20) PNEUMOCOCCAL: 65+ (3 - PPSV23 if available, else PCV20) [facility] Start: 06-15-2025 PNEUMOCOCCAL: 65+ (3 - PPSV23 or PCV20) PNEUMOCOCCAL: 65+ (3 - PPSV23 or PCV20) [facility] Start: 02-06-2025 DIABETES SCREEN DIABETES SCREEN [facility] Start: 01-02-2025 Annual PCP Team Billing Auditor minor Disease Visit Annual PCP Team Chronic Disease Visit [facility] Start: 01-02-2025 BP Controlled (<130/80) BP Controlle d (<130/80) [facility] Start: 01-02-2025 Covid-19 Vaccine ( season) Covid-19 Vaccine () [facility] Immunizations Immunization Date Immunization Notes Care Provider Leia [email or web address] 11-06-2022 zoster vaccine recombinant Aura Older 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.OPTICAL EFFECTS LINE UP PERSON Work Phone: [facility] Work Phone: 09-25-2022 influenza virus vacc ine, unspecified formulation Robert Mendoza MD Work Phone: [facility] 02-20-2022 tetanus toxoid, redu leonardo diphtheria toxoid, and acellular pertussis vaccine, adsorbed Robert Mendoza MD Work Phone: [facility] Work Phone: 02-20-2022 zoster vaccine recombinant Robert Mendoza MD Work Phone: [facility] Work Phone: 08-31-2021 influenza, injectabl e, quadrivalent, contains preservative Robert Mendoza MD Work Phone: [facility] 02-07-2021 COVID-19 vaccine, fu ll dose (MODERNA) Robert Mendoza MD Work Phone: [facility] 01-11-2021 COVID-19 vaccine, fu ll dose (MODERNA) Robert Mendoza MD Work Phone: [facility] 09-07-2020 influenza, seasonal, injectable Robert Mendoza MD Work Phone: [facility] 09-07-2020 influenza, seasonal, injectable, preservative free Robert Mendoza MD Work Phone: [facility] Work Phone: 06-15-2020 pneumococcal polysaccharide vaccine, 23 valent Robert Mendoza MD Work Phone: [facility] 09-07-2019 influenza, seasonal, injectable, preservative free Robert Mendoza MD Work Phone: [facility] Work Phone: 09-24-2018 influenza, injectabl e, quadrivalent, contains preservative Robert Mendoza MD Work Phone: [facility] 08-19-2017 influenza, seasonal, injectable, preservative free Robert Mendoza MD Work Phone: [facility] 10-07-2016 influenza, seasonal, injectable Robert Mendoza MD Work Phone: [facility] 11-06-2015 pneumococcal conjuga te vaccine, 13 valent Robert Mendoza MD Work Phone: [facility] 10-05-2015 influenza, injectabl e, quadrivalent, contains preservative Robert Mendoza MD Work Phone: [facility] Work Phone: 09-25-2015 influenza, seasonal, injectable, preservative free Robert Mendoza MD Work Phone: [facility] Work Phone: 09-17-2015 pneumococcal conjuga te vaccine, 13 valent Robert Mendoza MD Work Phone: [facility] 10-13-2014 influenza, seasonal, injectable Robert Mendoza MD Work Phone: [facility] 08-24-2014 influenza, seasonal, injectable Robert Mendoza MD Work Phone: [facility] 08-24-2014 influenza, seasonal, injectable, preservative free Robert Mendoza MD Work Phone: [facility] Work Phone: 10-08-2013 influenza virus vacc ine, unspecified formulation Robert Mendoza MD Work Phone: [facility] 08-22-2012 influenza virus vacc ine, unspecified formulation Robert Mendoza MD Work Phone: [facility] Work Phone: 11-01-2011 influenza virus vacc ine, unspecified formulation Robert Mendoza MD Work Phone: [facility] 11-06-2009 novel influenza-H1N1 -09, all formulations Robert Mendoza MD Work Phone: [facility] Work Phone: 11-03-2009 tetanus and diphther ia toxoids, adsorbed, preservative free, for adult use (2 Lf of tetanus toxoid and 2 Lf of diphtheria toxoid) Robert Mendoza MD Work Phone: [facility] Work Phone: Payers Date Payer Category Payer Medicare AETNA MEDICARE A ETNA MEDICARE PPO [id number] 2021-Present [phone] [address] [place] [address] PPO [id number] 2021 Medicare AETNA MEDICARE A ETNA MEDICARE PPO [id number] 2021-Present [phone] [address] [place] [address] PPO [id number] 2021 Medicare [id number] Social History Date Type Detail Facility Start: 02-12-2018 End: 02-26-2023 Tobacco smoking status NHIS Never smoked tobacco [facility] Work Phone: Start: 08-31-2021 End: 01-02-2024 Alcohol intake Current non-drinker of alcohol (finding) [facility] Start: 12-12-2020 End: 11-02-2022 History SDOH Alcohol Frequency 1 [facility] Start: 12-12-2020 History SDOH Alcohol Std Drinks 98 [facility] Start: 12-12-2020 End: 11-02-2022 History SDOH Social Connections Phone 4 [facility] Start: 12-12-2020 End: 11-02-2022 History SDOH Social Connections Get Together 2 [facility] Start: 12-12-2020 End: 11-02-2022 History SDOH Social Connections Living 3 [facility] Start: 12-12-2020 End: 11-02-2022 History SDOH Physical Activity DPW 0 [facility] Start: 12-12-2020 End: 11-02-2022 History SDOH Financial 5 [facility] Start: 12-12-2020 Education 12 [facility] Start: 1955 Sex Assigned At Male [facility] Start: 02-10-2022 End: 02-20-2022 Exposure to SARS-CoV-2 (event) Not sure [facility] Work Phone: Start: 02-12-2018 End: 02-26-2023 Tobacco use and exposure Smokeless tobacco non-user [facility] Start: 11-02-2022 End: 05-09-2023 History of Social function [facility] Start: 11-02-2022 End: 05-09-2023 Social connection and isolation panel [facility] Do you belong to any clubs or organizations such as baptist groups, unions, fraternal or athletic groups, or school groups? No [facility] Are you now , , , , never or living with a partner? [facility] How often to you hav e a drink containing alcohol? Never [facility] How many standard dr inks containing alcohol do you have on a typical day? Patient does not drink [facility] How hard is it for y ou to pay for the very basics like food, housing, medical care, and heating Not very hard [facility] Do you feel stress - tense, restless, nervous, or anxious, or unable to sleep at night because your mind is troubled all the time - these days [OSQ] To some extent [facility] (I/We) worried wheth er (my/our) food would run out before (I/we) got money to buy more. Never true [facility] Start: 01-18-2022 Gender identity Identifies as male gender (finding) [facility] Start: 01-18-2022 Sexual orientation Heterosexual (finding) [facility] Clinical Notes 05-19-2019 to 01-02-2024 Patient InstructionsAura Lozano APRN.CNP - 01/02/2024 12:24 PM ESTTelephone Encounter - Maritza Muro LPN - 09/17/2023 3:28 PM EDTPatient Instructions Note Date & Type Note Facility 01-02-2024 Note HNO ID: [id number] Author: AURA LOZANO APRN.CNP Service: ? Author Type: Nurse Practitioner Type: Progress Notes Filed: 01/02/2024 12:43 Note Text: Dusty Middleton is a 68 year old male here for a Medicare wellness visit. Medicare Health Risk Assessment General Health Good Exercise: Minutes/Day 0 min Exercise: Days/Week 0 days Alcohol: Daily Use Never Alcohol: Drinks/Day Patient does not drink Alcohol: 6 or more drinks Never Feel off balance Yes Concerns: Teeth/Dentures No Concerns: Sexual function Yes Troubled by feelings None of the above Frequency: Eating healthy diet Nearly every day ADLs requiring help Bathing (MS) Safety precautions in home/vehicle Yes Smoke, vape, chews tobacco No Difficulty hearing No Difficulty seeing No Current Providers Specialists: I have reviewed specialist-related care of the patient in the medical record. Current care team: Patient Care Team: Robert Mendoza MD as PCP - General (Internal Medicine) Outside specialists seen: water purifier operator- [facility], Neurologist-Dr. Roy, ophthalmology- Sary, urologist- Dr. Bernardo Medical/Family history review Reviewed and updated problem list, medical/surgical/family/social history, medications, and allergies. Opioid use review Opioid Medications (last 90 days) Some values may be hidden. Unless noted otherwise, only the newest values recorded on each date are displayed. Opioid Medications No data to display. Depression screening Depression Screening PHQ-2 Score PHQ-9 Score 06/19/2021 1 4 Depression screening tool completed and reviewed. Based on score and interview, patient is not at risk for depression. Screening tool discussed with patient, and I recommended no further intervention at this time. Cognitive screening Cognitive screening reviewed and no further action needed (score 3-5) Functional Observation Was the patient's Timed Up AND Go test unsteady or ? 12 seconds? NA (MS/WC bound) Advance Care Planning Surrogate decision maker and/or advance care plan documented Measurements BP 116/80 Pulse 76 Resp 20 Ht 6' 6 (1.98m) Wt 300 lb (136.1kg) BMI 34.68 kg/(m2). Additional screenings: No results found. Assessment/Plan Medicare annual wellness visit, subsequent (Z00.00) - Counseled on healthy diet - Fall avoidance information provided - Personalized prevention plan provided Aura Lozano APRN.[facility] 01-02-2024 Instructions Aura Lozano APRN.[facility] - 01/02/2024 12:32 PM EST Screening schedule The following prevention plan is recommended: RSV Vaccine(1 - 1-dose 60+ series) Never done Covid-19 Vaccine(2022- season) due on 07/25/2023 WHAT YOU CAN DO TO PREVENT FALLS Many falls can be prevented. By making some changes, you can lower your chances of falling. Four things YOU can do to prevent falls for you* and your caregiver 1. Begin a regular exercise program Exercise is one of the most important ways to lower your chances of falling. It makes you stronger and helps you feel better. Exercises that improve balance and coordination (like Berry Chi) are the most helpful. Lack of exercise leads to weakness and increases your chances of falling. Ask your doctor or health care provider about the best type of exercise program for you. 2. Have your health care provider review your medicines Have your doctor or pharmacist review all the medicines you take, even [id number] medicines. As you get older, the way medicines work in your body can change. Some medicines, or combinations of medicines, can make you sleepy or dizzy and can cause you to fall. 3. Have your vision checked Have your eyes checked by an eye doctor at least once a year. You may be wearing the wrong glasses or have a condition like glaucoma or cataracts that limits your vision. Poor vision can increase your chances of falling. 4. Make your home safer About half of all falls happen at home. To make your home safer: Remove things you can trip over (like papers, books, clothes, and shoes) from stairs and places where you walk. Remove small throw rugs or use double-sided tape to keep the rugs from slipping. Keep items you use often in cabinets you can reach easily without using a step stool. Have grab bars put in next to your toilet and in the tub or shower. Use non-slip mats in the bathtub and on shower floors. Improve the lighting in your home. As you get older, you need brighter lights to see well. Hang light-weight curtains or shades to reduce glare. Have handrails and lights put in on all staircases. Wear shoes both inside and outside the house. Avoid going barefoot or wearing slippers. For more information, contact: Centers for Disease Control and Prevention www.cdc.gov/injury * This information may not apply if you have certain medical conditions. documented in this encounter [facility] 01-02-2024 History of Presen t illness Narrative Dusty Middleton is a 68 year old male here for a Medicare wellness visit. Medicare Health Risk Assessment General Health Good Exercise: Minutes/Day 0 min Exercise: Days/Week 0 days Alcohol: Daily Use Never Alcohol: Drinks/Day Patient does not drink Alcohol: 6 or more drinks Never Feel off balance Yes Concerns: Teeth/Dentures No Concerns: Sexual function Yes Troubled by feelings None of the above Frequency: Eating healthy diet Nearly every day ADLs requiring help Bathing (MS) Safety precautions in home/vehicle Yes Smoke, vape, chews tobacco No Difficulty hearing No Difficulty seeing No Current Providers Specialists: I have reviewed specialist-related care of the patient in the medical record. Current care team: Patient Care Team: Robert Mendoza MD as PCP - General (Internal Medicine) Outside specialists seen: water purifier operator- [facility], Neurologist-Dr. Roy, ophthalmology- Sary, urologist- Dr. Bernardo Medical/Family history review Reviewed and updated problem list, medical/surgical/family/social history, medications, and allergies. Opioid use review Opioid Medications (last 90 days) Some values may be hidden. Unless noted otherwise, only the newest values recorded on each date are displayed. Opioid Medications No data to display. Depression screening Depression Screening PHQ-2 Score PHQ-9 Score 06/19/2021 1 4 Depression screening tool completed and reviewed. Based on score and interview, patient is not at risk for depression. Screening tool discussed with patient, and I recommended no further intervention at this time. Cognitive screening Cognitive screening reviewed and no further action needed (score 3-5) Functional Observation Was the patient's Timed Up & Go test unsteady or ? 12 seconds? NA (MS/WC bound) Advance Care Planning Surrogate decision maker and/or advance care plan documented Measurements BP 116/80 Pulse 76 Resp 20 Ht 6' 6 (1.98m) Wt 300 lb (136.1kg) BMI 34.68 kg/(m^2). Additional screenings: No results found. Assessment/Plan Medicare annual wellness visit, subsequent (Z00.00) - Counseled on healthy diet - Fall avoidance information provided - Personalized prevention plan provided Aura Lozano APRN.OPTICAL EFFECTS LINE UP PERSON documented in this encounter [facility] 09-17-2023 Miscellaneous Notes Sakshi/PRIYANKA notified. Maritza Muro LPN Continue fluid restriction and sodium restriction per discharge instructions. Pt was put on fluid restrictions while he was at [facility] last month. Nurse Sakshi states pt is still following this & is asking if pt is to continue restricting fluids? Pt has a kidney stone & having surgery to remove on 10/03/23. Sakshi will not be avail tomorrow, call the office at [phone]. She is aware pcp will return to the office 09/17/23. Dayanna Alanis LPN documented in this encounter [facility] 09-10-2023 Miscellaneous Notes David notified. Okay for orders below Aura MCKENZIE Boyer.OPTICAL EFFECTS LINE UP PERSON David RN with [facility] HH calls to request a continuation of nursing frequency order for once weekly x 2 more weeks for further monitoring. David requests order be called to [phone]. Deedee Mederos RN documented in this encounter [facility] 09-03-2023 Note HNO ID: [id number] Author: Robert Mendoza MD Service: ? Author Type: Physician Type: Progress Notes Filed: 09/04/2023 7:11 AM Note Text: This note was created using NoteWriter. Subjective Patient presents with: [facility] F/U [place] Josefa Middleton is a 68 year old male. 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 [...] Edema present. Neurolog (more content not included)... [facility] 09-01-2023 Miscellaneous Notes Third attempt to reach patient and by phone with no answer. Line rang several times and then discontinued x2, unable to leave VM. message sent requesting for patient/ to call office. HAI Mccann TC to patient and - unable to reach x2. Will try again later. Please call for update on BM Aura Boyer APRN.OPTICAL EFFECTS LINE UP PERSON Charlette from [facility] Home Health calling patient was discharged from [facility] yesterday, had respiratory failure, aspiration pneumonia. Plan for jail visits 1 visit this week, then 2 [...] Ni. Please advise documented in this encounter [facility] 09-01-2023 Miscellaneous Notes Ute HERNANDEZ from [facility] calling with POC for pt. OT will be seeing pt 2x per week for 3 wks then 1x per week for 1 wk with focus on strengthening and transfers. BP this morning was 108/95. Nurse will be going out later today. Just FYI. No need to call back unless concerns or changes. documented in this encounter [facility] 08-29-2023 Miscellaneous Notes Lobo with [facility] Physical Therapy calling with plan of care for patient: Will see patient 2 times per week for 4 weeks for functional mobility. No call back needed. Staci Porras RN documented in this encounter [facility] 08-18-2023 Miscellaneous Notes Lisa from [facility] calls to report that patient's oxygen levels [...] Clarissa Peña RN documented in this encounter [facility] 08-15-2023 Miscellaneous Notes Called and left detailed message on Ooshot VM with Provider message below. If questions Glenna to call office back and speak with [facility] Triage Nurse. Zuleima Leal Ma Helder Boyer APRN.OPTICAL EFFECTS LINE UP PERSON Glenna- Nurse- [facility], reporting POC: she did start of care, and plans to see patient for disease and medication education 1 x week for 1 week, then 2 times week for 3 week. Please phone Glenna with verbal approval: [phone] documented in this encounter [facility] 08-13-2023 Miscellaneous Notes Call placed to Migdalia with [facility] and verbal ok given for HH, SN, PT, OT orders. Deedee Mederos RN Helder Boyer APRN.OPTICAL EFFECTS LINE UP PERSON Migdalia with [facility] HH calls to see if provider will follow HH orders for SN, PT, and OT. Patient to be discharging from [facility] tomorrow 08/14/2023 after being treated for UTI and pneumonia. Please call Migdalia back at [phone]. Ok to leave a message on secure Qwiteil. Deedee Mederos RN documented in this encounter [facility] 07-08-2023 Miscellaneous Notes Pcp rec'd via fax from [facility] enhancing mobility for pt. He completed these and they have been faxed back to [facility]. documented in this encounter [facility] 05-13-2023 Miscellaneous Notes Patient has been [...] Maritza Muro LPN documented in this encounter [facility] 05-09-2023 Note HNO ID: [id number] Author: Robert Mendoza MD Service: ? Author Type: Physician Type: Progress Notes Filed: 05/09/2023 9:16 AM Note Text: This note was created using [email or web address]. Subjective Dusty Middleton is a 67 year old male here with spouse. Conditions were stable. He had no recent urinary tract infection. We reviewed labs from February. He was still waiting for his new wheelchair that can elevate his legs to help swelling. His specialists: Neurology: Dr. Wolff for [facility] Cardiology: [facility] Urology: Dr. 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 Athscl heart disease of [place] coronary artery w/o ang pctrs - ICD9: 414.01, ICD10: I25.10 Stable. 4. Essential hypertension, benign - ICD9: 401.1, ICD10: I10 - Controlled 5. Obstructive sleep apnea syndrome - ICD9: 327.23, ICD10: G47.33 Using and benefiting from regular CPAP use. Robert Mendoza MD [facility] 05-09-2023 Instructions Robert Mendoza MD - 05/09/2023 9:10 AM EDT FASTING BLOOD CHEMISTRY IN 6 MONTHS. COPY OF ADVANCED DIRECTIVE. documented in this encounter [facility] 05-09-2023 History of Presen t illness Narrative This note was created using RealOps. Subjective Dusty Middleton is a 67 year old male here with spouse. Conditions were stable. He had no recent urinary tract infection. We reviewed labs from February. He was still waiting for his new wheelchair that can elevate his legs to help swelling. His specialists: Neurology: Dr. Wolff for [facility] Cardiology: [facility] Urology: Dr. Bernardo chronic [...] Anxiety Disorder, Unspecified Athscl Heart Disease of [place] Coronary Artery W/O Ang Pctrs Chronic Fatigue Syndrome Dependence On Wheelchair Obstructive Sleep Apnea Syndrome Ostium Secundum Type Atrial Septal Defect Personal History of Malignant Neoplasm of Bladder Vitamin D Deficiency Current Use of Usp Anticoagulation Stage 3a Chronic Kidney Disease (Hcc) [...] A DAY February 04, 2020 1:11pm 02-04-2020 [facility] ([id number]) sodium bicarbonate 650 mg tablet Take 650 [...] METABOLIC PANEL 3. Athscl heart disease of [place] coronary artery w/o ang pctrs - ICD9: 414.01, ICD10: I25.10 Stable. 4. Essential hypertension, benign - ICD9: 401.1, ICD10: I10 - Controlled 5. Obstructive sleep apnea syndrome - ICD9: 327.23, ICD10: G47.33 Using and benefiting from regular CPAP use. Robert Mendoza MD documented in this encounter [facility] documented in this encounter [facility]04-05-2023 NoteHNO ID: [id number] Author: Robert Mendoza MD Service: ? Author Type: Physician Type: Progress Notes Filed: 03/27/2023 2:39 PM Note Text: This note was created using RealOps. Subjective Dusty Middleton is a 67 year old male here with spouse. He needed orders for reevaluation of his motorized wheelchair sent to [facility]. His conditions were stable, and he had no acute concerns. Handicap parking also needed renewed. His specialists: Neurology: Dr. Wolff [facility] Cardiology: [facility] Urology: Dr. 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 [facility]04-05-2023 History of Present illness Narrative* Robert Mendoza MD - 02/26/2023 9:47 AM EDT This note was created using [email or web address]. Subjective Dusty Middleton is a 67 year old male here with spouse. He needed orders for reevaluation of his motorized wheelchair sent to [facility]. His conditions were stable, and he had no acute concerns. Handicap parking also needed renewed. His specialists: Neurology: Dr. Wolff for [facility] Cardiology: [facility] Urology: Dr. 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. 6. Paroxysmal atrial fibrillation (HCC) - ICD9: 427.31, ICD10: I48.0 Controlled. 7. Vitamin D deficiency - ICD9: 268.9, ICD10: E55.9 - VITAMIN D 25 HYDROXY 8. Screening for prostate cancer - ICD9: V76.44, ICD10: Z12.5 - Risks/benefits of prostate cancer screening discussed. screening PSA ordered - PSA/PROSTSPECAG SCRN Robert Mendoza MD [facility] Miscellaneous Notes* Telephone Encounter - Maritza [...] you. Maritza Muro LPN [facility] History of Present illness Narrative* Maryuri Boyer APRN.OPTICAL EFFECTS LINE UP PERSON - 11/06/2022 7:59 AM EST Medicare Yearly Visit Medical B eligibilty date 2018 Date of last exam 08/31/21 PAST MEDICAL HISTORY Diagnosis Date Anxiety disorder, unspecified 10/21/2017 Athscl heart disease of [place] coronary artery w/o ang pctrs 10/21/2017 Cardiogenic [...] DX W/COLLJ SPEC WHEN PFRMD 06/01/2018 [facility]-repeat 10 years-05/2028 CYSTO W LITHOTRIPSY Left 02/24/15 [...] seen: Neurology: Dr. Wolff [facility] Cardiology: [facility] Urology: Dr. Bernardo chronic [...] at home Hearing Evaluation: normal HTN: Mr. Middleton indicates that he is feeling well and [...] occur. Patient agreeable to treatment plan. Maryuri Boyer APRN.CNP [facility] Miscellaneous Notes* Telephone Encounter - Alexander [...] pharmacy. Alexander Kearney Ma [facility] History of Present illness Narrative* Yovana Will LPN - 07/05/2022 11:25 AM EDT Message left at pts home number to return call to a nurse to complete TCM note and arrange hospitalfollow up [facility] Miscellaneous Notes* Telephone Encounter - Maritza Muro LPN - 06/25/2022 8:19 AM EDT Patient notified. Maritza Muro LPN * Telephone Encounter - Aura Boyer APRN.CNP - 06/25/2022 8:00 AM EDT He is not due for any labs in August Aura Boyer APRN.VERNON * Telephone Encounter - Lauren Alvarado LPN - 06/24/2022 10:23 AM EDT Patient is scheduled to see Aura Boyer 09/04/2022 and is asking if he has labs that need completed prior to appointment? [facility] History of Present illness Narrative* Robert Mendoza MD - 02/20/2022 10:05 AM EDT This note was created using [email or web address]. Subjective Dusty Middleton is a 66 year old male was [...] lb. Other specialists: Dr. Mathew Roy, [facility]. Dr. Ni, pulmonary. Dr. 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 Vitamin D Deficiency Hypercalcemia Current Use of Usp Anticoagulation Stage 3a Chronic Kidney Disease (Hcc) [...] DAY 60 February 04, 2020 1:11pm 02-04-2020 [facility] ([id number]) sodium bicarbonate 650 mg tablet Take 650 [...] control Robert Mendoza MD [facility] History of Past illness Narrative* Problem Noted Date Resolved Date Hypercalcemia 06/15/2019 02/26/2023 Gastrointestinal hemorrhage 05/19/201911/24 Pneumonia 05/19/2019 06/21/2021 Sepsis 05/19/2019 12/10/2019 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 posterior wall of urinary bladder 11/12/2017 06/21/2021 Overview: dx 2015 Acute respiratory failure 10/21/20172018 Other pulmonary embolism without acute cor pulmo nale 10/21/2017 06/21/2021 Cardiogenic shock 10/21/2017 06/21/2021 Dyspnea 09/04/2017 06/21/2021 documented as of this encounter (statuses as of 02/26/2023) [facility] Narrative* Problem [...] of this encounter (statuses as of 05/09/2023) [facility] Narrative* Problem [...] of this encounter (statuses as of 05/13/2023) [facility] Narrative* Problem Noted Date Diagnosed Date Resolved Date Hypercalcemia 06/15/2019 02/26/2023 Gastrointestinal hemorrhage 05/19/2019 12/10/2019 Pneumonia 05/19/2019 06/21/2021 Sepsis 05/19/2019 12/10/2019 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 11/12/2017 06/21/2021 Overview: dx 2014 Acute respiratory failure 10/21/2017 Other pulmonary embolism wit hout acute cor pulmonale 10/21/2017 06/21/2021 Cardiogenic shock 10/21/2017 06/21/2021 Dyspnea 09/04/2017 06/21/2021 documented as of this encounter (statuses as of 07/08/2023) [facility] Narrative* Problem Noted Date Diagnosed Date Resolved Date Hypercalcemia 06/15/2019 02/26/2023 Gastrointestinal hemorrhage 05/19/2019 12/10/2019 Pneumonia 05/19/2019 06/21/2021 Sepsis 05/19/2019 12/10/2019 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 11/12/2017 06/21/2021 Overview: dx 2014 Acute respiratory failure 10/21/2017 Other pulmonary embolism wit hout acute cor pulmonale 10/21/2017 06/21/2021 Cardiogenic shock 10/21/2017 06/21/2021 Dyspnea 09/04/2017 06/21/2021 documented as of this encounter (statuses as of 08/13/2023) [facility] Narrative* Problem Noted Date Diagnosed Date Resolved Date Hypercalcemia 06/15/2019 02/26/2023 Gastrointestinal hemorrhage 05/19/2019 12/10/2019 Pneumonia 05/19/2019 06/21/2021 Sepsis 05/19/2019 12/10/2019 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 11/12/2017 06/21/2021 Overview: dx 2014 Acute respiratory failure 10/21/2017 Other pulmonary embolism wit hout acute cor pulmonale 10/21/2017 06/21/2021 Cardiogenic shock 10/21/2017 06/21/2021 Dyspnea 09/04/2017 06/21/2021 documented as of this encounter (statuses as of 08/15/2023) [facility] Narrative* Problem Noted Date Diagnosed Date Resolved Date Hypercalcemia 06/15/2019 02/26/2023 Gastrointestinal hemorrhage 05/19/2019 12/10/2019 Pneumonia 05/19/2019 06/21/2021 Sepsis 05/19/2019 12/10/2019 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 11/12/2017 06/21/2021 Overview: dx 2014 Acute respiratory failure 10/21/2017 Other pulmonary embolism wit hout acute cor pulmonale 10/21/2017 06/21/2021 Cardiogenic shock 10/21/2017 06/21/2021 Dyspnea 09/04/2017 06/21/2021 documented as of this encounter (statuses as of 08/19/2023) [facility] Narrative* Problem Noted Date Diagnosed Date Resolved Date Hypercalcemia 06/15/2019 02/26/2023 Gastrointestinal hemorrhage 05/19/2019 12/10/2019 Pneumonia 05/19/2019 06/21/2021 Sepsis 05/19/2019 12/10/2019 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 11/12/2017 06/21/2021 Overview: dx 2014 Acute respiratory failure 10/21/2017 Other pulmonary embolism wit hout acute cor pulmonale 10/21/2017 06/21/2021 Cardiogenic shock 10/21/2017 06/21/2021 Dyspnea 09/04/2017 06/21/2021 documented as of this encounter (statuses as of 08/30/2023) [facility] N[facility]ative* Problem Noted Date Diagnosed Date Resolved Date Hypercalcemia 06/15/2019 02/26/2023 Gastrointestinal hemorrhage 05/19/2019 12/10/2019 Pneumonia 05/19/2019 06/21/2021 Sepsis 05/19/2019 12/10/2019 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 11/12/2017 06/21/2021 Overview: dx 2014 Acute respiratory failure 10/21/2017 Other pulmonary embolism wit hout acute cor pulmonale 10/21/2017 06/21/2021 Cardiogenic shock 10/21/2017 06/21/2021 Dyspnea 09/04/2017 06/21/2021 documented as of this encounter (statuses as of 09/01/2023) [facility] N[facility]* Problem Noted Date Diagnosed Date Resolved Date Hypercalcemia 06/15/2019 02/26/2023 Gastrointestinal hemorrhage 05/19/2019 12/10/2019 Pneumonia 05/19/2019 06/21/2021 Sepsis 05/19/2019 12/10/2019 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 11/12/2017 06/21/2021 Overview: dx 2015 Other pulmonary embolism wit hout acute cor pulmonale 10/21/2017 06/21/2021 Cardiogenic shock 10/21/2017 06/21/2021 Dyspnea 09/04/2017 06/21/2021 documented as of this encounter (statuses as of 09/10/2023) [facility]* Problem Noted Date Diagnosed Date Resolved Date Hypercalcemia 06/15/2019 02/26/2023 Gastrointestinal hemorrhage 05/19/2019 12/10/2019 Pneumonia 05/19/2019 06/21/2021 Sepsis 05/19/2019 12/10/2019 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 11/12/2017 06/21/2021 Overview: dx 2015 Other pulmonary embolism wit hout acute cor pulmonale 10/21/2017 06/21/2021 Cardiogenic shock 10/21/2017 06/21/2021 Dyspnea 09/04/2017 06/21/2021 documented as of this encounter (statuses as of 09/18/2023) [facility] Narrative* Problem Noted Date Diagnosed Date Resolved Date Hypercalcemia 06/15/2019 02/26/2023 Gastrointestinal hemorrhage 05/19/2019 12/10/2019 Pneumonia 05/19/2019 06/21/2021 Sepsis 05/19/2019 12/10/2019 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 11/12/2017 06/21/2021 Overview: dx 2015 Other pulmonary embolism wit hout acute cor pulmonale 10/21/2017 06/21/2021 Cardiogenic shock 10/21/2017 06/21/2021 Dyspnea 09/04/2017 06/21/2021 documented as of this encounter (statuses as of 10/15/2023) [facility]* Problem Noted Date Diagnosed Date Resolved Date Hypercalcemia 06/15/2019 02/26/2023 Gastrointestinal hemorrhage 05/19/2019 12/10/2019 Pneumonia 05/19/2019 06/21/2021 Sepsis 05/19/2019 12/10/2019 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 11/12/2017 06/21/2021 Overview: dx 2015 Other pulmonary embolism wit hout acute cor pulmonale 10/21/2017 06/21/2021 Cardiogenic shock 10/21/2017 06/21/2021 Dyspnea 09/04/2017 06/21/2021 documented as of this encounter (statuses as of 01/02/2024) [facility]ative* Problem Noted Date Resolved Date Gastrointestinal hemorrhage 05/19/201911/24 Pneumonia 05/19/2019 06/21/2021 Sepsis 05/19/2019 12/10/2019 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 posterior wall of urinary bladder 11/12/2017 06/21/2021 Overview: dx 2015 Chronic atrial fibrillation 10/30/201711/24 Overview: on Eliquis Acute respiratory failure 10/21/20172018 Other pulmonary embolism without acute cor pulmo nale 10/21/2017 06/21/2021 Cardiogenic shock 10/21/2017 06/21/2021 Dyspnea 09/04/2017 06/21/2021 documented as of this encounter (statuses as of 02/20/2022) [facility] N[facility]ative* Problem Noted Date Resolved Date Gastrointestinal hemorrhage 05/19/201911/24 Pneumonia 05/19/2019 06/21/2021 Sepsis 05/19/2019 12/10/2019 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 posterior wall of urinary bladder 11/12/2017 06/21/2021 Overview: dx 2015 Chronic atrial fibrillation 10/30/201711/24 Overview: on Eliquis Acute respiratory failure 10/21/20172018 Other pulmonary embolism without acute cor pulmo nale 10/21/2017 06/21/2021 Cardiogenic shock 10/21/2017 06/21/2021 Dyspnea 09/04/2017 06/21/2021 documented as of this encounter (statuses as of 06/25/2022) [facility]* Problem [...] of this encounter (statuses as of 07/05/2022) [facility]* Problem [...] of this encounter (statuses as of 07/31/2022) [facility]* Problem [...] of this encounter (statuses as of 11/06/2022) [facility]* Problem [...] of this encounter (statuses as of 11/13/2022) [facility]* Problem Noted Date Resolved Date Gastrointestinal hemorrhage 05/19/201911/24 Pneumonia 05/19/2019 06/21/2021 Sepsis 05/19/2019 12/10/2019 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 posterior wall of urinary bladder 11/12/2017 06/21/2021 Overview: dx 2015 Chronic atrial fibrillation 10/30/201711/24 Overview: on Eliquis Acute respiratory failure 10/21/20172018 Other pulmonary embolism without acute cor pulmo nale 10/21/2017 06/21/2021 Cardiogenic shock 10/21/2017 06/21/2021 Dyspnea 09/04/2017 06/21/2021 documented as of this encounter (statuses as of 01/07/2023) [facility] Diagnosis Dizziness, nonspecific- Primary Dizziness and giddiness Multiple opens wound of lower extremity, unspecified laterality, subsequent encounter Left hemiparesis (HCC) Hemiplegia, unspecified, affecting unspecified side Multiple sclerosis (HCC) Multiple sclerosis Chronic fatigue syndrome Need for vaccination Need for prophylactic vaccination and inoculation against unspecified single disease Essential hypertension, benign documented in this encounter [facility] note* Diagnosis Medicare annual wellness visit, subsequent- Primary Routine general medical examination at a health care facility Encounter for screening for diabetes mellitus Screening for diabetes mellitus [facility]* Diagnosis GERD without esophagitis Esophageal reflux documented in this encounter [facility] note* Diagnosis Left hemiparesis (HCC)- Primary Hemiplegia, unspecified, affecting unspecified side Multiple sclerosis (HCC) Multiple sclerosis Essential hypertension, benign Episode of recurrent major depressive disorder, unspecified depression episode severity (HCC) Dependence on wheelchair Paroxysmal atrial fibrillation (HCC) Atrial fibrillation Vitamin D deficiency Unspecified vitamin D deficiency Screening for prostate cancer Special screening for malignant neoplasm of prostate documented in this encounter [facility] note* Diagnosis Medicare annual wellness visit, subsequent- Primary Routine general medical examination at a health care facility documented in [facility] Reason for Referral Specialty Diagnoses / Procedures Referred By Contbutch t Referred To Contact Diagnoses Dizziness, nonspecific 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, 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, 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.OPTICAL EFFECTS 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 UP PERSON [address] [place] [address] Referral ID Status Reason Start Date Expiration Date V isits Requested Visits Authorized [id number] Authorized 11/24/2021 11/23/2023 1 1 Summary Purpose [...] or prosecute any alcohol or drug abuse patient.[facility] HospitalIn the event this information is protected by the Federal Confidentiality of Alcohol and Drug Abuse Patient Records regulations: The Federal rules restrict any use of the information to criminally investigate or prosecute any alcohol or drug abuse patient.[facility] HospitalIn the event this information is protected by the Federal Confidentiality of Alcohol and Drug Abuse Patient Records regulations: The Federal rules restrict any use of the information to criminally investigate or prosecute any alcohol or drug abuse patient.[facility] HospitalIn the event this information is protected by the Federal Confidentiality of Alcohol and Drug Abuse Patient Records regulations: The Federal rules restrict any use of the information to criminally investigate or prosecute any alcohol or drug abuse patient.[facility] HospitalIn the event this information is protected by the Federal Confidentiality of Alcohol and Drug Abuse Patient Records regulations: The Federal rules restrict any use of the information to criminally investigate or prosecute any alcohol or drug abuse patient.[facility] HospitalIn the event this information is protected by the Federal Confidentiality of Alcohol and Drug Abuse Patient Records regulations: The Federal rules restrict any use of the information to criminally investigate or prosecute any alcohol or drug abuse patient.[facility] HospitalIn the event this information is protected by the Federal Confidentiality of Alcohol and Drug Abuse Patient Records regulations: The Federal rules restrict any use of the information to criminally investigate or prosecute any alcohol or drug abuse patient.[facility] HospitalIn the event this information is protected by the Federal Confidentiality of Alcohol and Drug Abuse Patient Records regulations: The Federal rules restrict any use of the information to criminally investigate or prosecute any alcohol or drug abuse patient.[facility] HospitalIn the event this information is protected by the Federal Confidentiality of Alcohol and Drug Abuse Patient Records regulations: The Federal rules restrict any use of the information to criminally investigate or prosecute any alcohol or drug abuse patient.[facility] HospitalIn the event this information is protected by the Federal Confidentiality of Alcohol and Drug Abuse Patient Records regulations: The Federal rules restrict any use of the information to criminally investigate or prosecute any alcohol or drug abuse patient.[facility] HospitalIn the event this information is protected by the Federal Confidentiality of Alcohol and Drug Abuse Patient Records regulations: The Federal rules restrict any use of the information to criminally investigate or prosecute any alcohol or drug abuse patient.[facility] HospitalIn the event this information is protected by the Federal Confidentiality of Alcohol and Drug Abuse Patient Records regulations: The Federal rules restrict any use of the information to criminally investigate or prosecute any alcohol or drug abuse patient.[facility] HospitalIn the event this information is protected by the Federal Confidentiality of Alcohol and Drug Abuse Patient Records regulations: The Federal rules restrict any use of the information to criminally investigate or prosecute any alcohol or drug abuse patient.[facility] HospitalIn the event this information is protected by the Federal Confidentiality of Alcohol and Drug Abuse Patient Records regulations: The Federal rules restrict any use of the information to criminally investigate or prosecute any alcohol or drug abuse patient.[facility] HospitalIn the event this information is protected by the Federal Confidentiality of Alcohol and Drug Abuse Patient Records regulations: The Federal rules restrict any use of the information to criminally investigate or prosecute any alcohol or drug abuse patient.[facility] HospitalIn the event this information is protected by the Federal Confidentiality of Alcohol and Drug Abuse Patient Records regulations: The Federal rules restrict any use of the information to criminally investigate or prosecute any alcohol or drug abuse patient.[facility] HospitalIn the event this information is protected by the Federal Confidentiality of Alcohol and Drug Abuse Patient Records regulations: The Federal rules restrict any use of the information to criminally investigate or prosecute any alcohol or drug abuse patient.[facility] HospitalIn the event this information is protected by the Federal Confidentiality of Alcohol and Drug Abuse Patient Records regulations: The Federal rules restrict any use of the information to criminally investigate or prosecute any alcohol or drug abuse patient.[facility] HospitalIn the event this information is protected by the Federal Confidentiality of Alcohol and Drug Abuse Patient Records regulations: The Federal rules restrict any use of the information to criminally investigate or prosecute any alcohol or drug abuse patient.[facility] HospitalIn the event this information is protected by the Federal Confidentiality of Alcohol and Drug Abuse Patient Records regulations: The Federal rules restrict any use of the information to criminally investigate or prosecute any alcohol or drug abuse patient.[facility] Reason for Visit (unrecogniz ed section [...] Reason Comments Forms Reason Comments Nursing POC. [facility] Reason Comments Patient Update Reason Comments [facility] PT Plan of Care Reason Comments Home Health Point of Care Results Reason Comments [facility] Question Reason Comments home health calling Reason Comments Medicare Wellness Exam Care Teams (unrecognized sec tion and content) Exchange Underwriting Consultant Relationship Specialty Start Date End Date Robert Mendoza MD [address] [place] [address] PCP - General Internal Medicine 06/21/21 Exchange Underwriting Consultant Relationship Specialty Start Date End Date Robert Mendoza MD [address] [place] [address] PCP - General Internal Medicine 06/21/21 Exchange Underwriting Consultant Relationship Specialty Start Date End Date Robert Mendoza MD [address] [place] [address] PCP - General Internal Medicine 06/21/21 Exchange Underwriting Consultant Relationship Specialty Start Date End Date Robert Mendoza MD [address] [place] [address] PCP - General Internal Medicine 06/21/21 Exchange Underwriting Consultant Relationship Specialty Start Date End Date Robert Mendoza MD [address] [place] [address] PCP - General Internal Medicine 06/21/21 Exchange Underwriting Consultant Relationship Specialty Start Date End Date Robert Mendoza MD [address] [place] [address] PCP - General Internal Medicine 06/21/21 Exchange Underwriting Consultant Relationship Specialty Start Date End Date Robert Mendoza MD [address] [facility] [place] [address] PCP - General Internal Medicine 06/21/21 Exchange Underwriting Consultant Relationship Specialty Start Date End Date Robert Mendoza MD [address] [facility] [place] [address] PCP - General Internal Medicine 06/21/21 Exchange Underwriting Consultant Relationship Specialty Start Date End Date Robert Mendoza MD [address] [facility] [place] [address] PCP - General Internal Medicine 06/21/21 Exchange Underwriting Consultant Relationship Specialty Start Date End Date Robert Mendoza MD [address] [facility] [place] [address] PCP - General Internal Medicine 06/21/21 Exchange Underwriting Consultant Relationship Specialty Start Date End Date Robert Mendoza MD [address] [facility] [place] [address] PCP - General Internal Medicine 06/21/21 Exchange Underwriting Consultant Relationship Specialty Start Date End Date Robert Mendoza MD [address] [facility] [place] [address] PCP - General Internal Medicine 06/21/21 (unrecognized [...] BE BASED ON THE PRIMARY CLINICAL RECORDS. [employer] [facility]. provides no warranty or guarantee of the accuracy or completeness of information in this document.
[2024-01-05 10:55] LABS: Anion Gap 6 (5-15); BUN 22 mg/dL (7-18); BUN/Creat Ratio 13.3 RATIO (10-20); Calcium,Total 9.5 mg/dL (8.5-10.1); Chloride 105 mmol/L (98-107); Creatinine, Serum 1.65 mg/dL (0.70-1.30); EST Glomerular Filtration Rate 45 mL/min (>60); Est Glom Filt Rate - Afr Amer 54 mL/min (>60); Glucose 111 mg/dL (74-106); Sodium Level 142 mmol/L (136-145)
[2024-01-05 13:08] LABS: AST(SGOT) 13 U/L (15-37); Alanine Aminotransfer ALT/SGPT 19 U/L (16-61); Albumin, Serum 2.9 g/dL (3.2-5.0); Alkaline Phosphatase 114 U/L (45-117); Bilirubin, Direct 0.17 mg/dL (0.00-0.30); Cholesterol 149 mg/dL (200); Globulin 3.9 g/dL (2.2-4.2); High Density Lipoprotein 42 mg/dL; Protein, Total 6.8 g/dL (6.4-8.2); Triglycerides 246 mg/dL; Very Low Density Lipoprotein 49 mg/dL (5-40)
== END | disposition home or self-care (01) ==
LOC: MTLAB 08:16
PROVIDERS: Physician Assistant Medical; PCP Internal Medicine; Referring Provider Internal Medicine Cardiovascular Disease; Visit Provider Internal Medicine Cardiovascular Disease
DX: R60.0 Localized edema (principal); I48.0 Paroxysmal atrial fibrillation; I10 Essential (primary) hypertension; E78.00 Pure hypercholesterolemia, unspecified
CPT/HCPCS: 36415; 80048; 80061; 80076

== ENCOUNTER → 2024-01-16 | Outpatient (CLI) | payer MEDICARE, SELFPAY ==
--- OUTSIDE RECORDS SUMMARY | 2024-01-16 08:48 | XMS RPT_ITS | CCD ---
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] Onset: 12-22-2019 12-22-2019 [...] 12:10-0500 Body height 198.1 cm Aura Blake DEPUTY PROSECUTING ATTORNEY.MANAGER TRADE MARKETING Work Phone: [facility] 01-02-2024 12:10-0500 Body weight 136.08 kg Aura Blake DEPUTY PROSECUTING ATTORNEY.MANAGER TRADE MARKETING Work Phone: [facility] 01-02-2024 12:10-0500 Diastolic blood pressure 80 mm[Hg] Aura Blake DEPUTY PROSECUTING ATTORNEY.MANAGER TRADE MARKETING Work Phone: [facility] 01-02-2024 12:10-0500 Heart rate 76 /min Aura Blake DEPUTY PROSECUTING ATTORNEY.MANAGER TRADE MARKETING Work Phone: [facility] 01-02-2024 12:10-0500 Respiratory rate 20 /min Aura Blake DEPUTY PROSECUTING ATTORNEY.MANAGER TRADE MARKETING Work Phone: [facility] 01-02-2024 12:10-0500 Systolic blood pressure 116 mm[Hg] Aura Blake DEPUTY PROSECUTING ATTORNEY.MANAGER TRADE MARKETING Work Phone: [facility] 05-09-2023 08:51-0400 Diastolic blood pressure 80 mm[Hg] Robert Mendoza MD Work Phone: [facility] 05-09-2023 08:51-0400 Heart rate 80 /min Robert Mendoza MD Work Phone: [facility] 05-09-2023 08:51-0400 Respiratory rate 16 /min Robert Mendoza MD Work Phone: [facility] 05-09-2023 08:51-0400 Systolic blood pressure 110 mm[Hg] Robert Mendoza MD Work Phone: [facility] 02-26-2023 09:24-0400 Diastolic blood pressure 68 mm[Hg] Robert Mendoza MD Work Phone: [facility] 02-26-2023 09:24-0400 Heart rate 92 /min Robert Mendoza MD Work Phone: [facility] 02-26-2023 09:24-0400 Respiratory rate 16 /min Robert Mendoza MD Work Phone: [facility] 02-26-2023 09:24-0400 Systolic blood pressure 120 mm[Hg] Robert Mendoza MD Work Phone: [facility] 11-06-2022 08:00-0500 Body temperature 97.39 [degF] Maryuri Older DEPUTY PROSECUTING ATTORNEY.MANAGER TRADE MARKETING Work Phone: [facility] 11-06-2022 08:00-0500 Diastolic blood pressure 78 mm[Hg] Maryuri Older DEPUTY PROSECUTING ATTORNEY.MANAGER TRADE MARKETING Work Phone: [facility] 11-06-2022 08:00-0500 Heart rate 88 /min Maryuri Older DEPUTY PROSECUTING ATTORNEY.MANAGER TRADE MARKETING Work Phone: [facility] 11-06-2022 08:00-0500 Respiratory rate 16 /min Maryuri Older DEPUTY PROSECUTING ATTORNEY.MANAGER TRADE MARKETING Work Phone: [facility] 11-06-2022 08:00-0500 Systolic blood pressure 126 mm[Hg] Maryuri Older DEPUTY PROSECUTING ATTORNEY.MANAGER TRADE MARKETING Work Phone: [facility] 02-20-2022 09:38-0400 Body temperature 96.4 [degF] Robert Mendoza MD Work Phone: [facility] 02-20-2022 09:38-0400 Diastolic blood pressure 74 mm[Hg] Robert Mendoza MD Work Phone: [facility] 02-20-2022 09:38-0400 Heart rate 72 /min Robert Mendoza MD Work Phone: [facility] 02-20-2022 09:38-0400 Respiratory rate 16 /min Robert Mendoza MD Work Phone: [facility] 02-20-2022 09:38-0400 Systolic blood pressure 124 mm[Hg] Robert Mendoza MD Work Phone: [facility] Encounters Encounter Date Encounter Type Care Provider Facility Start: 01-02-2024 End: 01-02-2024 ambulatory ROBERT MENDOZA Facility:[facility] Start: 01-02-2024 End: 01-02-2024 Patient encounter procedure Aura Lozano DEPUTY PROSECUTING ATTORNEY.MANAGER TRADE MARKETING Work Phone: [facility] Procedures Date Procedure Procedure Detail Performing Clinician Start: 03-14-2023 Lipid 1996 panel - S nicole or Plasma Robert Mendoza MD Work Phone: Start: 06-01-2018 Colonoscopy Robert Connell MD Work Phone: Start: 01-17-2016 Colonoscopy Robert Connell MD Work Phone: Plan of Treatment Date Care Activity Detail Author Start: 02-21-2032 Urine microalbumin profile [facility] Start: 06-01-2028 Colonoscopy COLONOSCOPY [facility] Start: 06-01-2028 COLORECTAL CANCER SCREENING COLORECTAL CANCER SCREENING [facility] Start: 03-14-2028 Lipid 1996 panel - S nicole or Plasma Lipid Screening [facility] Start: 03-14-2028 Lipid panel Lipid Screening [facility] Start: 03-14-2028 LIPID SCREEN LIPID SCREEN [facility] Start: 03-14-2028 PROSTATE CANCER SCRE ENING DISCUSSION PROSTATE CANCER SCREENING DISCUSSION [facility] Start: 03-14-2028 Prostate specific an tigen measurement Prostate Cancer Screening Discussion [facility] Start: 02-06-2027 LIPID SCREEN LIPID SCREEN [facility] Start: 03-14-2026 DIABETES SCREEN DIABETES SCREEN [facility] Start: 03-14-2026 Diabetes Screening Diabetes Screenin g [facility] Start: 01-17-2026 Colonoscopy COLONOSCOPY [facility] Start: 01-17-2026 COLORECTAL CANCER SCREENING COLORECTAL CANCER SCREENING [facility] Start: 01-17-2026 Screening for malign ant neoplasm of colon [facility] Start: 11-06-2025 DIABETES SCREEN DIABETES SCREEN [facility] Start: 06-15-2025 Pneumococcal Vaccine : 65+ (3 - PPSV23 or PCV20) Pneumococcal Vaccine: 65+ (3 - PPSV23 or PCV20) [facility] Start: 06-15-2025 Pneumococcal Vaccine : 65+ (3 of 3 - PPSV23 or PCV20) Pneumococcal Vaccine: 65+ (3 of 3 - PPSV23 or PCV20) [facility] Start: 06-15-2025 PNEUMOCOCCAL: 65+ (#3) PNEUMOCOCCAL: 65+ (#3) [facility] Start: 06-15-2025 PNEUMOCOCCAL: 65+ (2 - PPSV23 or PCV20) PNEUMOCOCCAL: 65+ (2 - PPSV23 or PCV20) [facility] Start: 06-15-2025 PNEUMOCOCCAL: 65+ (3 - PPSV23 if available, else PCV20) PNEUMOCOCCAL: 65+ (3 - PPSV23 if available, else PCV20) [facility] Start: 06-15-2025 PNEUMOCOCCAL: 65+ (3 - PPSV23 or PCV20) PNEUMOCOCCAL: 65+ (3 - PPSV23 or PCV20) [facility] Start: 02-06-2025 DIABETES SCREEN DIABETES SCREEN 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 Annual PCP Team Chronic Disease Visit [facility] Start: 01-02-2025 BP Controlled (<130/80) BP Controlle d (<130/80) [facility] Start: 01-02-2025 Covid-19 Vaccine ( season) Covid-19 Vaccine () [facility] Immunizations Immunization Date Immunization Notes Care Provider Leia [email or web address] 11-06-2022 zoster vaccine recombinant Aura Older DEPUTY PROSECUTING ATTORNEY.MANAGER TRADE MARKETING Work Phone: [facility] Work Phone: 09-25-2022 influenza virus vacc ine, unspecified formulation Robert Mendoza MD Work Phone: [facility] 02-20-2022 tetanus toxoid, redu leonardo diphtheria toxoid, and acellular pertussis vaccine, adsorbed Robert Mendoza MD Work Phone: [facility] Work Phone: 02-20-2022 zoster vaccine recombinant Robert Mendoza MD Work Phone: [facility] Work Phone: 08-31-2021 influenza, injectabl e, quadrivalent, contains preservative Robert Mendoza MD Work Phone: [facility] 02-07-2021 COVID-19 vaccine, fu ll dose (MODERNA) Robert Mendoza MD Work Phone: [facility] 01-11-2021 COVID-19 vaccine, fu ll dose (MODERNA) Robert Mendoza MD Work Phone: [facility] 09-07-2020 influenza, seasonal, injectable Robert Mendoza MD Work Phone: [facility] 09-07-2020 influenza, seasonal, injectable, preservative free Robert Mendoza MD Work Phone: [facility] Work Phone: 06-15-2020 pneumococcal polysaccharide vaccine, 23 valent Robert Mendoza MD Work Phone: [facility] 09-07-2019 influenza, seasonal, injectable, preservative free Robert Mendoza MD Work Phone: [facility] Work Phone: 09-24-2018 influenza, injectabl e, quadrivalent, contains preservative Robert Mendoza MD Work Phone: [facility] 08-19-2017 influenza, seasonal, injectable, preservative free Robert Mendoza MD Work Phone: [facility] 10-07-2016 influenza, seasonal, injectable Robert Mendoza MD Work Phone: [facility] 11-06-2015 pneumococcal conjuga te vaccine, 13 valent Robert Mendoza MD Work Phone: [facility] 10-05-2015 influenza, injectabl e, quadrivalent, contains preservative Robert Mendoza MD Work Phone: [facility] Work Phone: 09-25-2015 influenza, seasonal, injectable, preservative free Robert Mendoza MD Work Phone: [facility] Work Phone: 09-17-2015 pneumococcal conjuga te vaccine, 13 valent Robert Mendoza MD Work Phone: [facility] 10-13-2014 influenza, seasonal, injectable Robert Mendoza MD Work Phone: [facility] 08-24-2014 influenza, seasonal, injectable Robert Mendoza MD Work Phone: [facility] 08-24-2014 influenza, seasonal, injectable, preservative free Robert Mendoza MD Work Phone: [facility] Work Phone: 10-08-2013 influenza virus vacc ine, unspecified formulation Robert Mendoza MD Work Phone: [facility] 08-22-2012 influenza virus vacc ine, unspecified formulation Robert Mendoza MD Work Phone: [facility] Work Phone: 11-01-2011 influenza virus vacc ine, unspecified formulation Robert Mendoza MD Work Phone: [facility] 11-06-2009 novel influenza-H1N1 -09, all formulations Robert Mendoza MD Work Phone: [facility] Work Phone: 11-03-2009 tetanus and diphther ia toxoids, adsorbed, preservative free, for adult use (2 Lf of tetanus toxoid and 2 Lf of diphtheria toxoid) Robert Mendoza MD Work Phone: [facility] Work Phone: Payers Date Payer Category Payer Medicare AETNA MEDICARE A ETNA MEDICARE PPO [id number] 2021-Present [phone] [address] [place] [address] PPO [id number] 2021 Medicare AETNA MEDICARE A ETNA MEDICARE PPO [id number] 2021-Present [phone] [address] [place] [address] PPO [id number] 2021 Medicare [id number] Social History Date Type Detail Facility Start: 02-12-2018 End: 02-26-2023 Tobacco smoking status NHIS Never smoked tobacco [facility] Work Phone: Start: 08-31-2021 End: 01-02-2024 Alcohol intake Current non-drinker of alcohol (finding) [facility] Start: 12-12-2020 End: 11-02-2022 History SDOH Alcohol Frequency 1 [facility] Start: 12-12-2020 History SDOH Alcohol Std Drinks 98 [facility] Start: 12-12-2020 End: 11-02-2022 History SDOH Social Connections Phone 4 [facility] Start: 12-12-2020 End: 11-02-2022 History SDOH Social Connections Get Together 2 [facility] Start: 12-12-2020 End: 11-02-2022 History SDOH Social Connections Living 3 [facility] Start: 12-12-2020 End: 11-02-2022 History SDOH Physical Activity DPW 0 [facility] Start: 12-12-2020 End: 11-02-2022 History SDOH Financial 5 [facility] Start: 12-12-2020 Education 12 [facility] Start: 1955 Sex Assigned At Male [facility] Start: 02-10-2022 End: 02-20-2022 Exposure to SARS-CoV-2 (event) Not sure [facility] Work Phone: Start: 02-12-2018 End: 02-26-2023 Tobacco use and exposure Smokeless tobacco non-user [facility] Start: 11-02-2022 End: 05-09-2023 History of Social function [facility] Start: 11-02-2022 End: 05-09-2023 Social connection and isolation panel [facility] Do you belong to any clubs or organizations such as rastafarian groups, unions, fraternal or athletic groups, or school groups? No [facility] Are you now , , , , never or living with a partner? [facility] How often to you hav e a drink containing alcohol? Never [facility] How many standard dr inks containing alcohol do you have on a typical day? Patient does not drink [facility] How hard is it for y ou to pay for the very basics like food, housing, medical care, and heating Not very hard [facility] Do you feel stress - tense, restless, nervous, or anxious, or unable to sleep at night because your mind is troubled all the time - these days [OSQ] To some extent [facility] (I/We) worried wheth er (my/our) food would run out before (I/we) got money to buy more. Never true [facility] Start: 01-18-2022 Gender identity Identifies as male gender (finding) [facility] Start: 01-18-2022 Sexual orientation Heterosexual (finding) [facility] Clinical Notes 05-19-2019 to 01-02-2024 Patient InstructionsAura Lozano APRN.CNP - 01/02/2024 12:24 PM ESTTelephone Encounter - Maritza Muro LPN - 09/17/2023 3:28 PM EDTPatient Instructions Note Date & Type Note Facility 01-02-2024 Note HNO ID: [id number] Author: AURA LOZANO APRN.CNP Service: ? Author [...] - General (Internal Medicine) Outside specialists seen: gut sorter- [facility], Neurologist-Dr. Roy, ophthalmology- Sary, urologist- [...] Personalized prevention plan provided Aura Lozano APRN.[facility] 01-02-2024 Instructions Aura Lozano APRN.[facility] - 01/02/2024 12:32 PM EST Screening schedule [...] review all the medicines you take, even [id number] medicines. As you get older, the way [...] certain medical conditions. documented in this encounter [facility] 01-02-2024 History of Presen t illness Narrative [...] - General (Internal Medicine) Outside specialists seen: gut sorter- [facility], Neurologist-Dr. Roy, ophthalmology- Sary, urologist- [...] - Personalized prevention plan provided Aura Lozano APRN.MANAGER TRADE MARKETING documented in this encounter [facility] 09-17-2023 Miscellaneous Notes Sakshi/PRIYANKA notified. Maritza Muro LPN Continue fluid restriction and sodium restriction per discharge instructions. Pt was put on fluid restrictions while he was at [facility] last month. Nurse Sakshi states pt is still following this & is asking if pt is to continue restricting fluids? Pt has a kidney stone & having surgery to remove on 10/03/23. Sakshi will not be avail tomorrow, call the office at [phone]. She is aware pcp will return to the office 09/17/23. Dayanna Alanis LPN documented in this encounter [facility] 09-10-2023 Miscellaneous Notes David notified. Okay for orders below Aura MCKENZIE Boyer.MANAGER TRADE MARKETING David RN with [facility] HH calls to request a continuation of nursing frequency order for once weekly x 2 more weeks for further monitoring. David requests order be called to [phone]. Deedee Mederos RN documented in this encounter [facility] 09-03-2023 Note HNO ID: [id number] Author: Robert Mendoza MD Service: ? Author Type: Physician Type: Progress Notes Filed: 09/04/2023 7:11 AM Note Text: This note was created using NoteWriter. Subjective Patient presents with: [facility] Josefa Middleton is a 68 year old [...] Anxiety Disorder, Unspecified Athscl Heart Disease of [place] Coronary Artery W/O Ang Pctrs Chronic Fatigue Syndrome Dependence On Wheelchair Obstructive Sleep Apnea Syndrome Ostium Secundum Type Atrial Septal Defect Personal History of Malignant Neoplasm of Bladder Vitamin D Deficiency Current Use of Tissue Rewinder Anticoagulation Stage 3a Chronic Kidney Disease (Hcc) [...] DAY 60 February 04, 2020 1:11pm 02-04-2020 [facility] ([id number]) Sennosides 8.6 mg cap Take by mouth. [...] Edema present. Neurolog (more content not included)... [facility] 09-01-2023 Miscellaneous Notes Third attempt to reach patient and by phone with no answer. Line rang several times and then discontinued x2, unable to leave VM. message sent requesting for patient/ to call office. HAI Mccann TC to patient and - unable to reach x2. Will try again later. Please call for update on BM Aura Boyer APRN.MANAGER TRADE MARKETING Charlette from [facility] Home Health calling patient was discharged from [facility] yesterday, had respiratory failure, aspiration pneumonia. Plan [...] Ni. Please advise documented in this encounter [facility] 09-01-2023 Miscellaneous Notes Ute HERNANDEZ from [facility] calling with POC for pt. OT will be seeing pt 2x per week for 3 wks then 1x per week for 1 wk with focus on strengthening and transfers. BP this morning was 108/95. Nurse will be going out later today. Just FYI. No need to call back unless concerns or changes. documented in this encounter [facility] 08-29-2023 Miscellaneous Notes Lobo with [facility] Physical Therapy calling with plan of care for patient: Will see patient 2 times per week for 4 weeks for functional mobility. No call back needed. Staci Porras RN documented in this encounter [facility] 08-18-2023 Miscellaneous Notes Lisa from [facility] calls to report that patient's oxygen levels [...] Clarissa Peña RN documented in this encounter [facility] 08-15-2023 Miscellaneous Notes Called and left detailed message on [employer] VM with Provider message below. If questions Glenna to call office back and speak with [facility] Triage Nurse. Zuleima Leal Ma Helder Boyer APRN.MANAGER TRADE MARKETING Glenna- Nurse- [facility], reporting POC: she did start of care, and plans to see patient for disease and medication education 1 x week for 1 week, then 2 times week for 3 week. Please phone Glenna with verbal approval: [phone] documented in this encounter [facility] 08-13-2023 Miscellaneous Notes Call placed to Migdalia with [facility] and verbal ok given for HH, SN, PT, OT orders. Deedee Mederos RN Helder Boyer APRN.MANAGER TRADE MARKETING Migdalia with [facility] HH calls to see if provider will follow HH orders for SN, PT, and OT. Patient to be discharging from [facility] tomorrow 08/14/2023 after being treated for UTI and pneumonia. Please call Migdalia back at [phone]. Ok to leave a message on secure [employer]. Deedee Mederos RN documented in this encounter [facility] 07-08-2023 Miscellaneous Notes Pcp rec'd via fax from [facility] enhancing mobility for pt. He completed these and they have been faxed back to [facility]. documented in this encounter [facility] 05-13-2023 Miscellaneous Notes Patient has been identified [...] Maritza Muro LPN documented in this encounter [facility] 05-09-2023 Note HNO ID: [id number] Author: Robert Mendoza MD Service: ? Author Type: Physician Type: Progress Notes Filed: 05/09/2023 9:16 AM Note Text: This note was created using [email or web address]. Subjective Dusty Middleton is a 67 year old male here with spouse. Conditions were stable. He had no recent urinary tract infection. We reviewed labs from February. He was still waiting for his new wheelchair that can elevate his legs to help swelling. His specialists: Neurology: Dr. Wolff [facility] Cardiology: [facility] for [facility]-fib Urology: Dr. Bernardo chronic [...] Anxiety Disorder, Unspecified Athscl Heart Disease of [place] Coronary Artery W/O Ang Pctrs Chronic Fatigue Syndrome Dependence On Wheelchair Obstructive Sleep Apnea Syndrome Ostium Secundum Type Atrial Septal Defect Personal History of Malignant Neoplasm of Bladder Vitamin D Deficiency Current Use of Tissue Rewinder Anticoagulation Stage 3a Chronic Kidney Disease (Hcc) [...] DAY 60 February 04, 2020 1:11pm 02-04-2020 [facility] ([id number]) sodium bicarbonate 650 mg tablet Take 650 [...] METABOLIC PANEL 3. Athscl heart disease of [place] coronary artery w/o ang pctrs - ICD9: 414.01, ICD10: I25.10 Stable. 4. Essential hypertension, benign - ICD9: 401.1, ICD10: I10 - Controlled 5. Obstructive sleep apnea syndrome - ICD9: 327.23, ICD10: G47.33 Using and benefiting from regular CPAP use. Robert Mendoza MD [facility] 05-09-2023 Instructions Robert Mendoza MD - 05/09/2023 9:10 AM EDT FASTING BLOOD CHEMISTRY IN 6 MONTHS. COPY OF ADVANCED DIRECTIVE. documented in this encounter [facility] 05-09-2023 History of Presen t illness Narrative This note was created using ClickandBuy. Subjective Dusty Middleton is a 67 year old male here with spouse. Conditions were stable. He had no recent urinary tract infection. We reviewed labs from February. He was still waiting for his new wheelchair that can elevate his legs to help swelling. His specialists: Neurology: Dr. Wolff [facility] Cardiology: [facility] for [facility]-fib Urology: Dr. 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 Athscl heart disease of [place] coronary artery w/o ang pctrs - ICD9: 414.01, ICD10: I25.10 Stable. 4. Essential hypertension, benign - ICD9: 401.1, ICD10: I10 - Controlled 5. Obstructive sleep apnea syndrome - ICD9: 327.23, ICD10: G47.33 Using and benefiting from regular CPAP use. Robert Mendoza MD documented [facility] this [facility] [place] documented in this encounter [facility] [place]04[facility]23 NoteHNO ID: [id number] Author: Robert Mendoza MD Service: ? Author Type: Physician Type: Progress Notes Filed: 03/27/2023 2:39 PM Note Text: This note was created using [employer]. Subjective Dusty Middleton is a 67 year old male here with spouse. He needed orders for reevaluation of his motorized wheelchair sent to [facility]. His conditions were stable, and he had no acute concerns. Handicap parking also needed renewed. His specialists: Neurology: Dr. Wolff for [place] Cardiology: [facility] Urology: Dr. Bernardo chronic [...] Anxiety Disorder, Unspecified Athscl Heart Disease of [place] Coronary Artery W/O Ang Pctrs Chronic Fatigue Syndrome Dependence On Wheelchair Obstructive Sleep Apnea Syndrome Ostium Secundum Type Atrial Septal Defect Personal History of Malignant Neoplasm of Bladder Vitamin D Deficiency Current Use of Care Home Anticoagulation Stage 3a Chronic Kidney Disease (Hcc) [...] A DAY February 04, 2020 1:11pm 02-04-2020 [facility] ([id number]) sodium bicarbonate 650 mg tablet Take 650 [...] fibrillation (HCC) - (more content not included)... [facility]04-05-2023 History of Present illness Narrative* Robert Mendoza MD - 02/26/2023 9:47 AM EDT This note was created using brettapprovedriter. Subjective Dusty Middleton is a 67 year old male here with spouse. He needed orders for reevaluation of his motorized wheelchair sent to [facility]. His conditions were stable, and he had no acute concerns. Handicap parking also needed renewed. His specialists: Neurology: Dr. Wolff for [place] Cardiology: [facility]-fib Urology: Dr. 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 Handicap [facility] letter. 6. Paroxysmal atrial fibrillation (HCC) - ICD9: 427.31, ICD10: I48.0 Controlled. 7. Vitamin D deficiency - ICD9: 268.9, ICD10: E55.9 - VITAMIN D 25 HYDROXY 8. Screening for prostate cancer - ICD9: V76.44, ICD10: Z12.5 - Risks/benefits of prostate cancer screening discussed. screening PSA ordered - PSA/PROSTSPECAG SCRN Robert Mendoza MD [facility] [place] Miscellaneous Notes* Telephone Encounter - Maritza Muro [...] you. Maritza Muro LPN [facility] [place] History of Present illness Narrative* Maryuri Boyer APRN.MANAGER [employer] - 11/06/2022 7:59 AM EST Medicare Yearly Visit Medical B eligibilty date 2018 Date of last exam 08/31/21 PAST MEDICAL HISTORY Diagnosis Date Anxiety disorder, unspecified 10/21/2017 Athscl heart disease of [place] coronary artery w/o ang pctrs 10/21/2017 Cardiogenic [...] W/COLLJ SPEC WHEN PFRMD 06/01/2018 [facility]-repeat 10 years-05/2028 CYSTO W LITHOTRIPSY Left 02/24/15 [...] seen: Neurology: Dr. Wolff for [place] Cardiology: [facility] for [facility]-fib Urology: Dr. Bernardo chronic [...] plan. Maryuri Boyer APRN.CNP [facility] [place] Miscellaneous Notes* Telephone Encounter - Alexander Kearney [...] pharmacy. Alexander Kearney Ma documented [facility] [place] History of Present illness Narrative* Yovana Will LPN - 07/05/2022 11:25 AM EDT Message left at pts home number to return call to a nurse to complete TCM note and arrange hospitalfollow up documented [facility] [place] Miscellaneous Notes* Telephone Encounter - Maritza Muro [...] completed prior to appointment? [facility] [place] History of Present illness Narrative* Robert Mendoza MD - 02/20/2022 10:05 AM EDT This note was created using brettapprovedriter. Subjective Dusty Middleton is a 66 year [...] lb. Other specialists: Dr. Mathew Roy, [facility]. Dr. Ni, pulmonary. Dr. Bernardo, [...] Anxiety Disorder, Unspecified Athscl Heart Disease of [place] Coronary Artery W/O Ang Pctrs Chronic Fatigue Syndrome Dependence On Wheelchair Obstructive Sleep Apnea Syndrome Ostium Secundum Type Atrial Septal Defect Personal History of Malignant Neoplasm of Bladder Vitamin D Deficiency Hypercalcemia Current Use of Care Home Anticoagulation Stage 3a Chronic Kidney Disease (Hcc) [...] DAY 60 February 04, 2020 1:11pm 02-04-2020 [facility] ([id number]) sodium bicarbonate 650 mg tablet Take 650 [...] control Robert Mendoza MD documented [facility] [place] History of Past illness Narrative* Problem Noted [...] of this encounter (statuses as of 02/26/2023) [facility] [place] History of Past illness Narrative* Problem Noted [...] of this encounter (statuses as of 05/09/2023) [facility] [place] of Past illness Narrative* Problem Noted [...] of this encounter (statuses as of 05/13/2023) [facility] [place] History of Past illness Narrative* Problem Noted Date Diagnosed Date Resolved Date Hypercalcemia 06/15/2019 02/26/2023 Gastrointestinal hemorrhage 05/19/2019 12/10/2019 Pneumonia 05/19/2019 06/21/2021 Sepsis 05/19/2019 12/10/2019 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 11/12/2017 06/21/2021 Overview: dx 2014 Acute respiratory failure 10/21/2017 Other pulmonary embolism wit hout acute cor pulmonale 10/21/2017 06/21/2021 Cardiogenic shock 10/21/2017 06/21/2021 Dyspnea 09/04/2017 06/21/2021 documented as of this encounter (statuses as of 07/08/2023) [facility] [place] History of Past illness Narrative* Problem Noted Date Diagnosed Date Resolved Date Hypercalcemia 06/15/2019 02/26/2023 Gastrointestinal hemorrhage 05/19/2019 12/10/2019 Pneumonia 05/19/2019 06/21/2021 Sepsis 05/19/2019 12/10/2019 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 11/12/2017 06/21/2021 Overview: dx 2014 Acute respiratory failure 10/21/2017 Other pulmonary embolism wit hout acute cor pulmonale 10/21/2017 06/21/2021 Cardiogenic shock 10/21/2017 06/21/2021 Dyspnea 09/04/2017 06/21/2021 documented as of this encounter (statuses as of 08/13/2023) [facility] [place] of Past illness Narrative* Problem Noted Date Diagnosed Date Resolved Date Hypercalcemia 06/15/2019 02/26/2023 Gastrointestinal hemorrhage 05/19/2019 12/10/2019 Pneumonia 05/19/2019 06/21/2021 Sepsis 05/19/2019 12/10/2019 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 11/12/2017 06/21/2021 Overview: dx 2014 Acute respiratory failure 10/21/2017 Other pulmonary embolism wit hout acute cor pulmonale 10/21/2017 06/21/2021 Cardiogenic shock 10/21/2017 06/21/2021 Dyspnea 09/04/2017 06/21/2021 documented as of this encounter (statuses as of 08/15/2023) [facility] [place] History of Past illness Narrative* Problem Noted Date Diagnosed Date Resolved Date Hypercalcemia 06/15/2019 02/26/2023 Gastrointestinal hemorrhage 05/19/2019 12/10/2019 Pneumonia 05/19/2019 06/21/2021 Sepsis 05/19/2019 12/10/2019 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 11/12/2017 06/21/2021 Overview: dx 2014 Acute respiratory failure 10/21/2017 Other pulmonary embolism wit hout acute cor pulmonale 10/21/2017 06/21/2021 Cardiogenic shock 10/21/2017 06/21/2021 Dyspnea 09/04/2017 06/21/2021 documented as of this encounter (statuses as of 08/19/2023) [facility] [place] of Past illness Narrative* Problem Noted Date Diagnosed Date Resolved Date Hypercalcemia 06/15/2019 02/26/2023 Gastrointestinal hemorrhage 05/19/2019 12/10/2019 Pneumonia 05/19/2019 06/21/2021 Sepsis 05/19/2019 12/10/2019 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 11/12/2017 06/21/2021 Overview: dx 2014 Acute respiratory failure 10/21/2017 Other pulmonary embolism wit hout acute cor pulmonale 10/21/2017 06/21/2021 Cardiogenic shock 10/21/2017 06/21/2021 Dyspnea 09/04/2017 06/21/2021 documented as of this encounter (statuses as of 08/30/2023) [facility] [place] History of Past illness Narrative* Problem Noted Date Diagnosed Date Resolved Date Hypercalcemia 06/15/2019 02/26/2023 Gastrointestinal hemorrhage 05/19/2019 12/10/2019 Pneumonia 05/19/2019 06/21/2021 Sepsis 05/19/2019 12/10/2019 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 11/12/2017 06/21/2021 Overview: dx 2014 Acute respiratory failure 10/21/2017 Other pulmonary embolism wit hout acute cor pulmonale 10/21/2017 06/21/2021 Cardiogenic shock 10/21/2017 06/21/2021 Dyspnea 09/04/2017 06/21/2021 documented as of this encounter (statuses as of 09/01/2023) [facility] [place] of Past illness Narrative* Problem Noted Date Diagnosed Date Resolved Date Hypercalcemia 06/15/2019 02/26/2023 Gastrointestinal hemorrhage 05/19/2019 12/10/2019 Pneumonia 05/19/2019 06/21/2021 Sepsis 05/19/2019 12/10/2019 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 11/12/2017 06/21/2021 Overview: dx 2015 Other pulmonary embolism wit hout acute cor pulmonale 10/21/2017 06/21/2021 Cardiogenic shock 10/21/2017 06/21/2021 Dyspnea 09/04/2017 06/21/2021 documented as of this encounter (statuses as of 09/10/2023) [facility] [place] of Past illness Narrative* Problem Noted Date Diagnosed Date Resolved Date Hypercalcemia 06/15/2019 02/26/2023 Gastrointestinal hemorrhage 05/19/2019 12/10/2019 Pneumonia 05/19/2019 06/21/2021 Sepsis 05/19/2019 12/10/2019 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 11/12/2017 06/21/2021 Overview: dx 2015 Other pulmonary embolism wit hout acute cor pulmonale 10/21/2017 06/21/2021 Cardiogenic shock 10/21/2017 06/21/2021 Dyspnea 09/04/2017 06/21/2021 documented as of this encounter (statuses as of 09/18/2023) [facility] [place] of Past illness Narrative* Problem Noted Date Diagnosed Date Resolved Date Hypercalcemia 06/15/2019 02/26/2023 Gastrointestinal hemorrhage 05/19/2019 12/10/2019 Pneumonia 05/19/2019 06/21/2021 Sepsis 05/19/2019 12/10/2019 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 11/12/2017 06/21/2021 Overview: dx 2015 Other pulmonary embolism wit hout acute cor pulmonale 10/21/2017 06/21/2021 Cardiogenic shock 10/21/2017 06/21/2021 Dyspnea 09/04/2017 06/21/2021 documented as of this encounter (statuses as of 10/15/2023) [facility] [place] History of Past illness Narrative* Problem Noted Date Diagnosed Date Resolved Date Hypercalcemia 06/15/2019 02/26/2023 Gastrointestinal hemorrhage 05/19/2019 12/10/2019 Pneumonia 05/19/2019 06/21/2021 Sepsis 05/19/2019 12/10/2019 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 11/12/2017 06/21/2021 Overview: dx 2015 Other pulmonary embolism wit hout acute cor pulmonale 10/21/2017 06/21/2021 Cardiogenic shock 10/21/2017 06/21/2021 Dyspnea 09/04/2017 06/21/2021 documented as of this encounter (statuses as of 01/02/2024) [facility] [place] of Past illness Narrative* Problem Noted [...] of this encounter (statuses as of 02/20/2022) [facility] [place] of [facility] illness Narrative* Problem Noted [...] of this encounter (statuses as of 06/25/2022) [facility] [place] Narrative* Problem Noted [...] of this encounter (statuses as of 07/05/2022) [facility] [place] of [facility] Narrative* Problem Noted [...] of this encounter (statuses as of 07/31/2022) [facility] [place] of Past illness Narrative* Problem Noted [...] of this encounter (statuses as of 11/06/2022) [facility] [place] of [facility] Narrative* Problem Noted [...] of this encounter (statuses as of 11/13/2022) [facility] [place] of [facility] Narrative* Problem Noted [...] of this encounter (statuses as of 01/07/2023) [facility] [place]* Diagnosis Dizziness, nonspecific- Primary Dizziness and giddiness Multiple opens wound of lower extremity, unspecified laterality, subsequent encounter Left hemiparesis (HCC) Hemiplegia, unspecified, affecting unspecified side Multiple sclerosis (HCC) Multiple sclerosis Chronic fatigue syndrome Need for vaccination Need for prophylactic vaccination and inoculation against unspecified single disease Essential hypertension, benign documented in this encounter [facility] note* Diagnosis Medicare annual wellness visit, subsequent- Primary Routine general medical examination at a health care facility Encounter for screening for diabetes mellitus Screening for diabetes mellitus [facility] Diagnosis GERD without esophagitis Esophageal reflux documented in this encounter [facility] note* Diagnosis Left hemiparesis (HCC)- Primary Hemiplegia, unspecified, affecting unspecified side Multiple sclerosis (HCC) Multiple sclerosis Essential hypertension, benign Episode of recurrent major depressive disorder, unspecified depression episode severity (HCC) Dependence on wheelchair Paroxysmal atrial fibrillation (HCC) Atrial fibrillation Vitamin D deficiency Unspecified vitamin D deficiency Screening for prostate cancer Special screening for malignant neoplasm of prostate documented in this encounter 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[employer] [address] [place] [address] Referral ID Status Reason Start Date Expiration Date V isits Requested Visits Authorized [id number] Authorized 11/24/2021 11/23/2023 1 1 Summary Purpose [...] or prosecute any alcohol or drug abuse patient.[facility] the event this information is protected by the Federal Confidentiality of Alcohol and Drug Abuse Patient Records regulations: The Federal rules restrict any use of the information to criminally investigate or prosecute any alcohol or drug abuse patient.[facility] [place] the event this information is protected by the Federal Confidentiality of Alcohol and Drug Abuse Patient Records regulations: The Federal rules restrict any use of the information to criminally investigate or prosecute any alcohol or drug abuse patient.[facility] [place] the event this information is protected by the Federal Confidentiality of Alcohol and Drug Abuse Patient Records regulations: The Federal rules restrict any use of the information to criminally investigate or prosecute any alcohol or drug abuse patient.[facility] [place] the event this information is protected by the Federal Confidentiality of Alcohol and Drug Abuse Patient Records regulations: The Federal rules restrict any use of the information to criminally investigate or prosecute any alcohol or drug abuse patient.[facility] [place] the event this information is protected by the Federal Confidentiality of Alcohol and Drug Abuse Patient Records regulations: The Federal rules restrict any use of the information to criminally investigate or prosecute any alcohol or drug abuse patient.[facility] [place] the event this information is protected by the Federal Confidentiality of Alcohol and Drug Abuse Patient Records regulations: The Federal rules restrict any use of the information to criminally investigate or prosecute any alcohol or drug abuse patient.[facility] [place] the event this information is protected by the Federal Confidentiality of Alcohol and Drug Abuse Patient Records regulations: The Federal rules restrict any use of the information to criminally investigate or prosecute any alcohol or drug abuse patient.[facility] [place] the event this information is protected by the Federal Confidentiality of Alcohol and Drug Abuse Patient Records regulations: The Federal rules restrict any use of the information to criminally investigate or prosecute any alcohol or drug abuse patient.[facility] [place] the event this information is protected by the Federal Confidentiality of Alcohol and Drug Abuse Patient Records regulations: The Federal rules restrict any use of the information to criminally investigate or prosecute any alcohol or drug abuse patient.[facility] [place] the event this information is protected by the Federal Confidentiality of Alcohol and Drug Abuse Patient Records regulations: The Federal rules restrict any use of the information to criminally investigate or prosecute any alcohol or drug abuse patient.[facility] [place]on[facility] the event this information is protected by the Federal Confidentiality of Alcohol and Drug Abuse Patient Records regulations: The Federal rules restrict any use of the information to criminally investigate or prosecute any alcohol or drug abuse patient.[facility] [place] the event this information is protected by the Federal Confidentiality of Alcohol and Drug Abuse Patient Records regulations: The Federal rules restrict any use of the information to criminally investigate or prosecute any alcohol or drug abuse patient.[facility] [place] the event this information is protected by the Federal Confidentiality of Alcohol and Drug Abuse Patient Records regulations: The Federal rules restrict any use of the information to criminally investigate or prosecute any alcohol or drug abuse patient.[facility] [place]on[facility] the event this information is protected by the Federal Confidentiality of Alcohol and Drug Abuse Patient Records regulations: The Federal rules restrict any use of the information to criminally investigate or prosecute any alcohol or drug abuse patient.[facility] [place]on[facility] the event this information is protected by the Federal Confidentiality of Alcohol and Drug Abuse Patient Records regulations: The Federal rules restrict any use of the information to criminally investigate or prosecute any alcohol or drug abuse patient.[facility] [place]on[facility] the event this information is protected by the Federal Confidentiality of Alcohol and Drug Abuse Patient Records regulations: The Federal rules restrict any use of the information to criminally investigate or prosecute any alcohol or drug abuse patient.[facility] [place] the event this information is protected by the Federal Confidentiality of Alcohol and Drug Abuse Patient Records regulations: The Federal rules restrict any use of the information to criminally investigate or prosecute any alcohol or drug abuse patient.[facility] [place]on[facility] the event this information is protected by the Federal Confidentiality of Alcohol and Drug Abuse Patient Records regulations: The Federal rules restrict any use of the information to criminally investigate or prosecute any alcohol or drug abuse patient.[facility] [place] the event this information is protected by the Federal Confidentiality of Alcohol and Drug Abuse Patient Records regulations: The Federal rules restrict any use of the information to criminally investigate or prosecute any alcohol or drug abuse patient.[facility] [place] Reason for Visit (unrecogniz ed section and [...] Reason Comments Forms Reason Comments Nursing POC. [facility] Reason Comments Patient Update Reason Comments [facility] PT Plan of Care Reason Comments Home Health Point of Care Results Reason Comments [facility] Question Reason Comments home health calling Reason Comments Medicare Wellness Exam Care Teams (unrecognized sec tion and content) Recycling Manager Relationship Specialty Start Date End Date Robert Mendoza MD [address] [place] [address] PCP - General Internal Medicine 06/21/21 Recycling Manager Relationship Specialty Start Date End Date Robert Mendoza MD [address] [place] [address] PCP - General Internal Medicine 06/21/21 Recycling Manager Relationship Specialty Start Date End Date Robert Mendoza MD [address] [place] [address] PCP - General Internal Medicine 06/21/21 Recycling Manager Relationship Specialty Start Date End Date Robert Mendoza MD [address] [place] [address] PCP - General Internal Medicine 06/21/21 Recycling Manager Relationship Specialty Start Date End Date Robert Mendoza MD [address] [place] [address] PCP - General Internal Medicine 06/21/21 Recycling Manager Relationship Specialty Start Date End Date Robert Mendoza MD [address] [place] [address] PCP - General Internal Medicine 06/21/21 Recycling Manager Relationship Specialty Start Date End Date Robert Mendoza MD [address] [facility] [place] [address] PCP - General Internal Medicine 06/21/21 Recycling Manager Relationship Specialty Start Date End Date Robert Mendoza MD [address] [facility] [place] [address] PCP - General Internal Medicine 06/21/21 Recycling Manager Relationship Specialty Start Date End Date Robert Mendoza MD [address] [facility] [place] [place] [address] PCP - General Internal Medicine 06/21/21 Recycling Manager Relationship Specialty Start Date End Date Robert Mendoza MD [address] [facility] [place] [place] [address] PCP - General Internal Medicine 06/21/21 Recycling Manager Relationship Specialty Start Date End Date Robert Mendoza MD [address] [facility] [place] [place] [address] PCP - General Internal Medicine 06/21/21 Recycling Manager Relationship Specialty Start Date End Date Robert Mendoza MD [address] [facility] [place] [place] [address] PCP - General Internal Medicine 06/21/21 (unrecognized [...] BE BASED ON THE PRIMARY CLINICAL RECORDS. [employer] [facility]. provides no warranty or guarantee of the accuracy or completeness of information in this document.
[2024-01-16 11:02] LABS: Anion Gap 6 (5-15); BUN 25 mg/dL (7-18); Calcium,Total 9.7 mg/dL (8.5-10.1); Chloride 107 mmol/L (98-107); Creatinine, Serum 1.79 mg/dL (0.70-1.30); EST Glomerular Filtration Rate 41 mL/min (>60); Est Glom Filt Rate - Afr Amer 49 mL/min (>60); Glucose 107 mg/dL (74-106); Potassium 3.7 mmol/L (3.5-5.1); Sodium Level 141 mmol/L (136-145)
== END | disposition home or self-care (01) ==
LOC: MTLAB 08:26
PROVIDERS: PCP Internal Medicine; Referring Provider Physician Assistant Medical; Visit Provider Physician Assistant Medical
DX: N17.9 Acute kidney failure, unspecified (principal); I48.0 Paroxysmal atrial fibrillation
CPT/HCPCS: 36415; 80048

== ENCOUNTER → 2024-01-22 | Outpatient (CLI) | payer MEDICARE, SELFPAY | END | disposition home or self-care (01) | PROVIDERS: PCP Internal Medicine; Referring Provider Urology; Visit Provider Urology | DX: R30.0 Dysuria (principal) | CPT/HCPCS: 87086; 87088 ==

== ENCOUNTER 2024-01-28 09:24 | Inpatient (IN) | payer MEDICARE, SELFPAY ==
[2024-01-28] VITALS (33 sets, daily range): BP systolic 59–152; BP diastolic 37–109; PULSE 57–116; RESP 15–28; TEMP 36–38.6; O2SAT 90–97; BMI 34.3; BMI 31.6
--- OUTSIDE RECORDS SUMMARY | 2024-01-28 05:49 | XMS RPT_ITS | CCD ---
Author Name Unknown Address [address] [facility] [address] [place] [address] Organization [facility] Care Team Providers Care Seater Assembler Name Role Phone Robert Mendoza MD Primary [...] Coronary atherosclerosis; Translations: [Atherosclerotic heart disease of [place] coronary artery without angina pectoris] Onset: 10-21-2017 [...] sources) Long-term current use of anticoagulant; Translations: [supervisor intermediates (current) use of anticoagulants] Onset: 12-22-2019 12-22-2019 [...] 12:10-0500 Body height 198.1 cm Aura Blake 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 Work Phone: [facility] 01-02-2024 12:10-0500 Body weight 136.08 kg Aura Blake 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 Work Phone: [facility] 01-02-2024 12:10-0500 Diastolic blood pressure 80 mm[Hg] Aura Blake 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 Work Phone: [facility] 01-02-2024 12:10-0500 Heart rate 76 /min Aura Blake 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 Work Phone: [facility] 01-02-2024 12:10-0500 Respiratory rate 20 /min Aura Blake 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 Work Phone: [facility] 01-02-2024 12:10-0500 Systolic blood pressure 116 mm[Hg] Aura Blake 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 Work Phone: [facility] 05-09-2023 08:51-0400 Diastolic blood pressure 80 mm[Hg] Robert Mendoza MD Work Phone: [facility] 05-09-2023 08:51-0400 Heart rate 80 /min Robert Mendoza MD Work Phone: [facility] 05-09-2023 08:51-0400 Respiratory rate 16 /min Robert Mendoza MD Work Phone: [facility] 05-09-2023 08:51-0400 Systolic blood pressure 110 mm[Hg] Robert Mendoza MD Work Phone: [facility] 02-26-2023 09:24-0400 Diastolic blood pressure 68 mm[Hg] Robert Mendoza MD Work Phone: [facility] 02-26-2023 09:24-0400 Heart rate 92 /min Robert Mendoza MD Work Phone: [facility] 02-26-2023 09:24-0400 Respiratory rate 16 /min Robert Mendoza MD Work Phone: [facility] 02-26-2023 09:24-0400 Systolic blood pressure 120 mm[Hg] Robert Mendoza MD Work Phone: [facility] 11-06-2022 08:00-0500 Body temperature 97.39 [degF] Maryuri Older 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 Work Phone: [facility] 11-06-2022 08:00-0500 Diastolic blood pressure 78 mm[Hg] Maryuri Older 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 Work Phone: [facility] 11-06-2022 08:00-0500 Heart rate 88 /min Maryuri Older 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 Work Phone: [facility] 11-06-2022 08:00-0500 Respiratory rate 16 /min Maryuri Older 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 Work Phone: [facility] 11-06-2022 08:00-0500 Systolic blood pressure 126 mm[Hg] Maryuri Older 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 Work Phone: [facility] 02-20-2022 09:38-0400 Body temperature 96.4 [degF] Robert Mendoza MD Work Phone: [facility] 02-20-2022 09:38-0400 Diastolic blood pressure 74 mm[Hg] Robert Mendoza MD Work Phone: [facility] 02-20-2022 09:38-0400 Heart rate 72 /min Robert Mendoza MD Work Phone: [facility] 02-20-2022 09:38-0400 Respiratory rate 16 /min Robert Mendoza MD Work Phone: [facility] 02-20-2022 09:38-0400 Systolic blood pressure 124 mm[Hg] Robert Mendoza MD Work Phone: [facility] Encounters Encounter Date Encounter Type Care Provider Facility Start: 01-02-2024 End: 01-02-2024 ambulatory ROBERT MENDOZA Facility:[facility] Start: 01-02-2024 End: 01-02-2024 Patient encounter procedure Aura Lozano 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 Work Phone: [facility] Procedures Date Procedure Procedure Detail Performing Clinician Start: 03-14-2023 Lipid 1996 panel - S nicole or Plasma Robert Mendoza MD Work Phone: Start: 06-01-2018 Colonoscopy Robert Connell MD Work Phone: Start: 01-17-2016 Colonoscopy Robert Connell MD Work Phone: Plan of Treatment Date Care Activity Detail Author Start: 02-21-2032 Urine microalbumin profile [facility] Start: 06-01-2028 Colonoscopy COLONOSCOPY [facility] Start: 06-01-2028 COLORECTAL CANCER SCREENING COLORECTAL CANCER SCREENING [facility] Start: 03-14-2028 Lipid 1996 panel - S nicole or Plasma Lipid Screening [facility] Start: 03-14-2028 Lipid panel Lipid Screening [facility] Start: 03-14-2028 LIPID SCREEN LIPID SCREEN [facility] Start: 03-14-2028 PROSTATE CANCER SCRE ENING DISCUSSION PROSTATE CANCER SCREENING DISCUSSION [facility] Start: 03-14-2028 Prostate specific an tigen measurement Prostate Cancer Screening Discussion [facility] Start: 02-06-2027 LIPID SCREEN LIPID SCREEN [facility] Start: 03-14-2026 DIABETES SCREEN DIABETES SCREEN [facility] Start: 03-14-2026 Diabetes Screening Diabetes Screenin g [facility] Start: 01-17-2026 Colonoscopy COLONOSCOPY [facility] Start: 01-17-2026 COLORECTAL CANCER SCREENING COLORECTAL CANCER SCREENING [facility] Start: 01-17-2026 Screening for malign ant neoplasm of colon [facility] Start: 11-06-2025 DIABETES SCREEN DIABETES SCREEN [facility] Start: 06-15-2025 Pneumococcal Vaccine : 65+ (3 - PPSV23 or PCV20) Pneumococcal Vaccine: 65+ (3 - PPSV23 or PCV20) [facility] Start: 06-15-2025 Pneumococcal Vaccine : 65+ (3 of 3 - PPSV23 or PCV20) Pneumococcal Vaccine: 65+ (3 of 3 - PPSV23 or PCV20) [facility] Start: 06-15-2025 PNEUMOCOCCAL: 65+ (#3) PNEUMOCOCCAL: 65+ (#3) [facility] Start: 06-15-2025 PNEUMOCOCCAL: 65+ (2 - PPSV23 or PCV20) PNEUMOCOCCAL: 65+ (2 - PPSV23 or PCV20) [facility] Start: 06-15-2025 PNEUMOCOCCAL: 65+ (3 - PPSV23 if available, else PCV20) PNEUMOCOCCAL: 65+ (3 - PPSV23 if available, else PCV20) [facility] Start: 06-15-2025 PNEUMOCOCCAL: 65+ (3 - PPSV23 or PCV20) PNEUMOCOCCAL: 65+ (3 - PPSV23 or PCV20) [facility] Start: 02-06-2025 DIABETES SCREEN DIABETES SCREEN [facility] Start: 01-02-2025 Annual PCP Team Tassel Maker minor Disease Visit Annual PCP Team Chronic Disease Visit [facility] Start: 01-02-2025 BP Controlled (<130/80) BP Controlle d (<130/80) [facility] Start: 01-02-2025 Covid-19 Vaccine ( season) Covid-19 Vaccine () [facility] Immunizations Immunization Date Immunization Notes Care Provider Leia [email or web address] 11-06-2022 zoster vaccine recombinant Aura Older 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 Work Phone: [facility] Work Phone: 09-25-2022 influenza virus vacc ine, unspecified formulation Robert Mendoza MD Work Phone: [facility] 02-20-2022 tetanus toxoid, redu leonardo diphtheria toxoid, and acellular pertussis vaccine, adsorbed Robert Mendoza MD Work Phone: [facility] Work Phone: 02-20-2022 zoster vaccine recombinant Robert Mendoza MD Work Phone: [facility] Work Phone: 08-31-2021 influenza, injectabl e, quadrivalent, contains preservative Robert Mendoza MD Work Phone: [facility] 02-07-2021 COVID-19 vaccine, fu ll dose (MODERNA) Robert Mendoza MD Work Phone: [facility] 01-11-2021 COVID-19 vaccine, fu ll dose (MODERNA) Robert Mendoza MD Work Phone: [facility] 09-07-2020 influenza, seasonal, injectable Robert Mendoza MD Work Phone: [facility] 09-07-2020 influenza, seasonal, injectable, preservative free Robert Mendoza MD Work Phone: [facility] Work Phone: 06-15-2020 pneumococcal polysaccharide vaccine, 23 valent Robert Mendoza MD Work Phone: [facility] 09-07-2019 influenza, seasonal, injectable, preservative free Robert Mendoza MD Work Phone: [facility] Work Phone: 09-24-2018 influenza, injectabl e, quadrivalent, contains preservative Robert Mendoza MD Work Phone: [facility] 08-19-2017 influenza, seasonal, injectable, preservative free Robert Mendoza MD Work Phone: [facility] 10-07-2016 influenza, seasonal, injectable Robert Mendoza MD Work Phone: [facility] 11-06-2015 pneumococcal conjuga te vaccine, 13 valent Robert Mendoza MD Work Phone: [facility] 10-05-2015 influenza, injectabl e, quadrivalent, contains preservative Robert Mendoza MD Work Phone: [facility] Work Phone: 09-25-2015 influenza, seasonal, injectable, preservative free Robert Mendoza MD Work Phone: [facility] Work Phone: 09-17-2015 pneumococcal conjuga te vaccine, 13 valent Robert Mendoza MD Work Phone: [facility] 10-13-2014 influenza, seasonal, injectable Robert Mendoza MD Work Phone: [facility] 08-24-2014 influenza, seasonal, injectable Robert Mendoza MD Work Phone: [facility] 08-24-2014 influenza, seasonal, injectable, preservative free Robert Mendoza MD Work Phone: [facility] Work Phone: 10-08-2013 influenza virus vacc ine, unspecified formulation Robert Mendoza MD Work Phone: [facility] 08-22-2012 influenza virus vacc ine, unspecified formulation Robert Mendoza MD Work Phone: [facility] Work Phone: 11-01-2011 influenza virus vacc ine, unspecified formulation Robert Mendoza MD Work Phone: [facility] 11-06-2009 novel influenza-H1N1 -09, all formulations Robert Mendoza MD Work Phone: [facility] Work Phone: 11-03-2009 tetanus and diphther ia toxoids, adsorbed, preservative free, for adult use (2 Lf of tetanus toxoid and 2 Lf of diphtheria toxoid) Robret Mendoza MD Work Phone: [facility] Work Phone: Payers Date Payer Category Payer Medicare AETNA MEDICARE A ETNA MEDICARE PPO [id number] 2021-Present [phone] [address] [place] [address] PPO [id number] 2021 Medicare AETNA MEDICARE A ETNA MEDICARE PPO [id number] 2021-Present [phone] [address] [place] [address] PPO [id number] 2021 Medicare [id number] Social History Date Type Detail Facility Start: 02-12-2018 End: 02-26-2023 Tobacco smoking status NHIS Never smoked tobacco [facility] Work Phone: Start: 08-31-2021 End: 01-02-2024 Alcohol intake Current non-drinker of alcohol (finding) [facility] Start: 12-12-2020 End: 11-02-2022 History SDOH Alcohol Frequency 1 [facility] Start: 12-12-2020 History SDOH Alcohol Std Drinks 98 [facility] Start: 12-12-2020 End: 11-02-2022 History SDOH Social Connections Phone 4 [facility] Start: 12-12-2020 End: 11-02-2022 History SDOH Social Connections Get Together 2 [facility] Start: 12-12-2020 End: 11-02-2022 History SDOH Social Connections Living 3 [facility] Start: 12-12-2020 End: 11-02-2022 History SDOH Physical Activity DPW 0 [facility] Start: 12-12-2020 End: 11-02-2022 History SDOH Financial 5 [facility] Start: 12-12-2020 Education 12 [facility] Start: 1955 Sex Assigned At Male [facility] Start: 02-10-2022 End: 02-20-2022 Exposure to SARS-CoV-2 (event) Not sure [facility] Work Phone: Start: 02-12-2018 End: 02-26-2023 Tobacco use and exposure Smokeless tobacco non-user [facility] Start: 11-02-2022 End: 05-09-2023 History of Social function [facility] Start: 11-02-2022 End: 05-09-2023 Social connection and isolation panel [facility] Do you belong to any clubs or organizations such as sabianist groups, unions, fraternal or athletic groups, or school groups? No [facility] Are you now , , , , never or living with a partner? [facility] How often to you hav e a drink containing alcohol? Never [facility] How many standard dr inks containing alcohol do you have on a typical day? Patient does not drink [facility] How hard is it for y ou to pay for the very basics like food, housing, medical care, and heating Not very hard [facility] Do you feel stress - tense, restless, nervous, or anxious, or unable to sleep at night because your mind is troubled all the time - these days [OSQ] To some extent [facility] (I/We) worried wheth er (my/our) food would run out before (I/we) got money to buy more. Never true [facility] Start: 01-18-2022 Gender identity Identifies as male gender (finding) [facility] Start: 01-18-2022 Sexual orientation Heterosexual (finding) [facility] Clinical Notes 05-19-2019 to 01-02-2024 Patient InstructionsAura Lozano APRN.CNP - 01/02/2024 12:24 PM ESTTelephone Encounter - Maritza Muro LPN - 09/17/2023 3:28 PM EDTPatient Instructions Note Date & Type Note Facility 01-02-2024 Note HNO ID: [id number] Author: AURA LOZANO APRN.CNP Service: ? Author [...] - General (Internal Medicine) Outside specialists seen: coordinator of online programs- [facility], Neurologist-Dr. Roy, ophthalmology- Sary, urologist- [...] Personalized prevention plan provided Aura Lozano APRN.[facility] 01-02-2024 Instructions Aura Lozano APRN.[facility] - 01/02/2024 12:32 PM EST Screening [...] review all the medicines you take, even qshm-iwu-trfrbdi medicines. As you get older, the way [...] certain medical conditions. documented in this encounter [facility] 01-02-2024 History of Presen t illness [...] - General (Internal Medicine) Outside specialists seen: coordinator of online programs- [facility], Neurologist-Dr. Roy, ophthalmology- Sary, urologist- [...] - Personalized prevention plan provided Aura Lozano APRN.SUPERCHARGE REPAIR SUPERVISOR documented in this encounter [facility] 09-17-2023 Miscellaneous Notes Sakshi/PRIYANKA notified. Maritza Muro LPN Continue fluid restriction and sodium restriction per discharge instructions. Pt was put on fluid restrictions while he was at [facility] last month. Nurse Sakshi states pt is still following this & is asking if pt is to continue restricting fluids? Pt has a kidney stone & having surgery to remove on 10/03/23. Sakshi will not be avail tomorrow, call the office at [phone]. She is aware pcp will return to the office 09/17/23. Dayanna Alanis LPN documented in this encounter [facility] 09-10-2023 Miscellaneous Notes David notified. Okay for orders below Aura MCKENZIE Boyer.SUPERCHARGE REPAIR SUPERVISOR David RN with [facility] HH calls to request a continuation of nursing frequency order for once weekly x 2 more weeks for further monitoring. David requests order be called to [phone]. Deedee Mederos RN documented in this encounter [facility] 09-03-2023 Note HNO ID: [id number] Author: Robert Mendoza MD Service: ? Author Type: Physician Type: Progress Notes Filed: 09/04/2023 7:11 AM Note Text: This note was created using NoteWriter. Subjective Patient presents with: [facility] F/U Elberon Josefa Middleton is a 68 year old [...] Anxiety Disorder, Unspecified Athscl Heart Disease of [place] Coronary Artery W/O Ang Pctrs Chronic Fatigue Syndrome Dependence On Wheelchair Obstructive Sleep Apnea Syndrome Ostium Secundum Type Atrial Septal Defect Personal History of Malignant Neoplasm of Bladder Vitamin D Deficiency Current Use of Planning Official Anticoagulation Stage 3a Chronic Kidney Disease (Hcc) [...] DAY 60 February 04, 2020 1:11pm 02-04-2020 [facility] ([id number]) Sennosides 8.6 mg cap Take by mouth. [...] Edema present. Neurolog (more content not included)... [facility] 09-01-2023 Miscellaneous Notes Third attempt to reach patient and by phone with no answer. Line rang several times and then discontinued x2, unable to leave VM. message sent requesting for patient/ to call office. HAI Mccann TC to patient and - unable to reach x2. Will try again later. Please call for update on BM Aura Boyer APRN.SUPERCHARGE REPAIR SUPERVISOR Charlette from [facility] Home Health calling patient was discharged from [facility] yesterday, had respiratory failure, aspiration pneumonia. Plan for snf visits 1 visit this week, then 2 [...] Ni. Please advise documented in this encounter [facility] 09-01-2023 Miscellaneous Notes Ute HERNANDEZ from [facility] calling with POC for pt. OT will be seeing pt 2x per week for 3 wks then 1x per week for 1 wk with focus on strengthening and transfers. BP this morning was 108/95. Nurse will be going out later today. Just FYI. No need to call back unless concerns or changes. documented in this encounter [facility] 08-29-2023 Miscellaneous Notes Lobo with [facility] Physical Therapy calling with plan of care for patient: Will see patient 2 times per week for 4 weeks for functional mobility. No call back needed. Staci Porras RN documented in this encounter [facility] 08-18-2023 Miscellaneous Notes Lisa from [facility] calls to report that patient's oxygen levels [...] Clarissa Peña RN documented in this encounter [facility] 08-15-2023 Miscellaneous Notes Called and left detailed message on [employer] VM with Provider message below. If questions Glenna to call office back and speak with [facility] Triage Nurse. Zuleima Leal Ma Helder Boyer APRN.SUPERCHARGE REPAIR SUPERVISOR Glenna- Nurse- [facility], reporting POC: she did start of care, and plans to see patient for disease and medication education 1 x week for 1 week, then 2 times week for 3 week. Please phone Glenna with verbal approval: [phone] documented in this encounter [facility] 08-13-2023 Miscellaneous Notes Call placed to Migdalia with [facility] and verbal ok given for HH, SN, PT, OT orders. Deedee Mederos RN Helder Boyer APRN.SUPERCHARGE REPAIR SUPERVISOR Migdalia with [facility] HH calls to see if provider will follow HH orders for SN, PT, and OT. Patient to be discharging from [facility] tomorrow 08/14/2023 after being treated for UTI and pneumonia. Please call Migdalia back at [phone]. Ok to leave a message on secure App [employer]. Deedee Mederos RN documented in this encounter [facility] 07-08-2023 Miscellaneous Notes Pcp rec'd via fax from [facility] enhancing mobility for pt. He completed these and they have been faxed back to [facility]. documented in this encounter [facility] 05-13-2023 Miscellaneous Notes Patient has been [...] Maritza Muro LPN documented in this encounter [facility] 05-09-2023 Note HNO ID: [id number] Author: Robert Mendoza MD Service: ? Author Type: Physician Type: Progress Notes Filed: 05/09/2023 9:16 AM Note Text: This note was created using Kupu Hawaiiriter. Subjective Dusty Middleton is a 67 year old male here with spouse. Conditions were stable. He had no recent urinary tract infection. We reviewed labs from February. He was still waiting for his new wheelchair that can elevate his legs to help swelling. His specialists: Neurology: Dr. [facility]ff [facility] Cardiology: [facility] Urology: Dr. Bernardo chronic [...] Anxiety Disorder, Unspecified Athscl Heart Disease of [place] Coronary Artery W/O Ang Pctrs Chronic Fatigue [...] DAY 60 February 04, 2020 1:11pm 02-04-2020 [facility] ([id number]) sodium bicarbonate 650 mg tablet Take 650 [...] METABOLIC PANEL 3. Athscl heart disease of [place] coronary artery w/o ang pctrs - ICD9: 414.01, ICD10: I25.10 Stable. 4. Essential hypertension, benign - ICD9: 401.1, ICD10: I10 - Controlled 5. Obstructive sleep apnea syndrome - ICD9: 327.23, ICD10: G47.33 Using and benefiting from regular CPAP use. Robert Mendoza MD [facility] 05-09-2023 Instructions Robert Mendoza MD - 05/09/2023 9:10 AM EDT FASTING BLOOD CHEMISTRY IN 6 MONTHS. COPY OF ADVANCED DIRECTIVE. documented in this encounter [facility] 05-09-2023 History of Presen t illness Narrative This note was created using LoiLo. Subjective Dusty Middleton is a 67 year old male here with spouse. Conditions were stable. He had no recent urinary tract infection. We reviewed labs from February. He was still waiting for his new wheelchair that can elevate his legs to help swelling. His specialists: Neurology: Dr. [facility] Cardiology: [facility] Urology: Dr. Bernardo chronic [...] Anxiety Disorder, Unspecified Athscl Heart Disease of [place] Coronary Artery W/O Ang Pctrs Chronic Fatigue Syndrome Dependence On Wheelchair Obstructive Sleep Apnea Syndrome Ostium Secundum Type Atrial Septal Defect Personal History of Malignant Neoplasm of Bladder Vitamin D Deficiency Current Use of Planning Official Anticoagulation Stage 3a Chronic Kidney Disease (Hcc) [...] A DAY February 04, 2020 1:11pm 02-04-2020 [facility] ([id number]) sodium bicarbonate 650 mg tablet Take 650 [...] METABOLIC PANEL 3. Athscl heart disease of [place] coronary artery w/o ang pctrs - ICD9: 414.01, ICD10: I25.10 Stable. 4. Essential hypertension, benign - ICD9: 401.1, ICD10: I10 - Controlled 5. Obstructive sleep apnea syndrome - ICD9: 327.23, ICD10: G47.33 Using and benefiting from regular CPAP use. Robert Mendoza MD documented in this encounter [facility] documented in this encounter [facility]05[facility]2023 NoteHNO ID: [id number] Author: Robert Mendoza MD Service: ? Author Type: Physician Type: Progress Notes Filed: 03/27/2023 2:39 PM Note Text: This note was created using LoiLo. Subjective Dusty Middleton is a 67 year old male here with spouse. He needed orders for reevaluation of his motorized wheelchair sent to [facility]. His conditions were stable, and he had no acute concerns. Handicap parking also needed renewed. His specialists: Neurology: Dr. [facility] Cardiology: [facility] Urology: Dr. Bernardo chronic [...] Anxiety Disorder, Unspecified Athscl Heart Disease of [place] Coronary Artery W/O Ang Pctrs Chronic Fatigue [...] A DAY February 04, 2020 1:11pm 02-04-2020 [facility] ([id number]) sodium bicarbonate 650 mg tablet Take 650 [...] fibrillation (HCC) - (more content not included)... [facility]04-05-2023 History of Present illness Narrative* Robert Mendoza MD - 02/26/2023 9:47 AM EDT This note was created using Kupu Hawai[employer]iter. Subjective Dusty Middleton is a 67 year old male here with spouse. He needed orders for reevaluation of his motorized wheelchair sent to [facility]. His conditions were stable, and he had no acute concerns. Handicap parking also needed renewed. His specialists: Neurology: Dr. [facility] Cardiology: [facility] Urology: Dr. Bernardo chronic [...] Anxiety Disorder, Unspecified Athscl Heart Disease of [place] Coronary Artery W/O Ang Pctrs Chronic Fatigue Syndrome Dependence On Wheelchair Obstructive Sleep Apnea Syndrome Ostium Secundum Type Atrial Septal Defect Personal History of Malignant Neoplasm of Bladder Vitamin D Deficiency Current Use of Planning Official Anticoagulation Stage 3a Chronic Kidney Disease (Hcc) [...] DAY 60 February 04, 2020 1:11pm 02-04-2020 [facility] ([id number]) sodium bicarbonate 650 mg tablet Take 650 [...] ICD9: V46.3, ICD10: Z99.3 [facility] letter. 6. Paroxysmal atrial fibrillation (HCC) - ICD9: 427.31, ICD10: I48.0 Controlled. 7. Vitamin D deficiency - ICD9: 268.9, ICD10: E55.9 - VITAMIN D 25 HYDROXY 8. Screening for prostate cancer - ICD9: V76.44, ICD10: Z12.5 - Risks/benefits of prostate cancer screening discussed. screening PSA ordered - PSA/PROSTSPECAG SCRN Robert [facility]endoza MD [facility] Miscellaneous Notes* Telephone Encounter - Maritza [...] you. Maritza Muro LPN [facility] History of Present illness Narrative* Maryuri Boyer APRN.[facility] - 11/06/2022 7:59 AM EST Medicare Yearly Visit Medical B eligibilty date 2018 Date of last exam 08/31/21 PAST MEDICAL HISTORY Diagnosis Date Anxiety disorder, unspecified 10/21/2017 Athscl heart disease of [place] coronary artery w/o ang pctrs 10/21/2017 Cardiogenic [...] DX W/COLLJ SPEC WHEN PFRMD 06/01/2018 [facility]-repeat 10 years-05/2028 CYSTO W LITHOTRIPSY Left 02/24/15 [...] seen: Neurology: [facility]. [facility] Cardiology: [facility] Urology: Dr. Bernardo chronic [...] plan. Maryuri Boyer APRN.CNP [facility] Miscellaneous Notes* Telephone Encounter - Alexander [...] pharmacy. Alexander Kearney Ma documented in this encounterCity [facility] History of Present illness Narrative* Yovana Will LPN - 07/05/2022 11:25 AM EDT Message left at pts home number to return call to a nurse to complete TCM note and arrange hospitalfollow up documented in this encounterCity [facility]08-02-[facility]22 Miscellaneous Notes* Telephone Encounter - Maritza [...] completed prior to appointment? documented in this encounterCity [facility]03-30-2022 History of Present illness Narrative* Robert Mendoza MD - 02/20/2022 10:05 AM EDT This note was created using [employer]. Subjective Dusty Middleton is a 66 year [...] lb. Other specialists: Dr. Mathew Roy, [facility]. Dr. Ni, pulmonary. Dr. Bernardo, [...] Anxiety Disorder, Unspecified [facility] [place] Coronary Artery W/O Ang Pctrs Chronic Fatigue [...] DAY 62 February 04, 2020 1:11pm 02-04-2020 [facility] ([id number]) sodium bicarbonate 650 mg tablet Take 650 [...] control Robert Mendoza MD documented in this encounterCity Hospital07-23-2019 History of Past illness Narrative* Problem [...] of this encounter (statuses as of 02/26/2023) [facility]arrative* Problem [...] of this encounter (statuses as of 05/09/2023) [facility] Narrative* Problem [...] of this encounter (statuses as of 05/13/2023) [facility] Narrative* Problem Noted Date Diagnosed Date Resolved Date Hypercalcemia 06/15/2019 02/26/2023 Gastrointestinal hemorrhage 05/19/2019 12/10/2019 Pneumonia 05/19/2019 06/21/2021 Sepsis 05/19/2019 12/10/2019 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 11/12/2017 06/21/2021 Overview: dx 2014 Acute respiratory failure 10/21/2017 Other pulmonary embolism wit hout acute cor pulmonale 10/21/2017 06/21/2021 Cardiogenic shock 10/21/2017 06/21/2021 Dyspnea 09/04/2017 06/21/2021 documented as of this encounter (statuses as of 07/08/2023) [facility] Narrative* Problem Noted Date Diagnosed Date Resolved Date Hypercalcemia 06/15/2019 02/26/2023 Gastrointestinal hemorrhage 05/19/2019 12/10/2019 Pneumonia 05/19/2019 06/21/2021 Sepsis 05/19/2019 12/10/2019 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 11/12/2017 06/21/2021 Overview: dx 2014 Acute respiratory failure 10/21/2017 Other pulmonary embolism wit hout acute cor pulmonale 10/21/2017 06/21/2021 Cardiogenic shock 10/21/2017 06/21/2021 Dyspnea 09/04/2017 06/21/2021 documented as of this encounter (statuses as of 08/13/2023) [facility] N[facility]ative* Problem Noted Date Diagnosed Date Resolved Date Hypercalcemia 06/15/2019 02/26/2023 Gastrointestinal hemorrhage 05/19/2019 12/10/2019 Pneumonia 05/19/2019 06/21/2021 Sepsis 05/19/2019 12/10/2019 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 11/12/2017 06/21/2021 Overview: dx 2014 Acute respiratory failure 10/21/2017 Other pulmonary embolism wit hout acute cor pulmonale 10/21/2017 06/21/2021 Cardiogenic shock 10/21/2017 06/21/2021 Dyspnea 09/04/2017 06/21/2021 documented as of this encounter (statuses as of 08/15/2023) [facility] Narrative* Problem Noted Date Diagnosed Date Resolved Date Hypercalcemia 06/15/2019 02/26/2023 Gastrointestinal hemorrhage 05/19/2019 12/10/2019 Pneumonia 05/19/2019 06/21/2021 Sepsis 05/19/2019 12/10/2019 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 11/12/2017 06/21/2021 Overview: dx 2014 Acute respiratory failure 10/21/2017 Other pulmonary embolism wit hout acute cor pulmonale 10/21/2017 06/21/2021 Cardiogenic shock 10/21/2017 06/21/2021 Dyspnea 09/04/2017 06/21/2021 documented as of this encounter (statuses as of 08/19/2023) [facility]* Problem Noted Date Diagnosed Date Resolved Date Hypercalcemia 06/15/2019 02/26/2023 Gastrointestinal hemorrhage 05/19/2019 12/10/2019 Pneumonia 05/19/2019 06/21/2021 Sepsis 05/19/2019 12/10/2019 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 11/12/2017 06/21/2021 Overview: dx 2014 Acute respiratory failure 10/21/2017 Other pulmonary embolism wit hout acute cor pulmonale 10/21/2017 06/21/2021 Cardiogenic shock 10/21/2017 06/21/2021 Dyspnea 09/04/2017 06/21/2021 documented as of this encounter (statuses as of 08/30/2023) [facility]* Problem Noted Date Diagnosed Date Resolved Date Hypercalcemia 06/15/2019 02/26/2023 Gastrointestinal hemorrhage 05/19/2019 12/10/2019 Pneumonia 05/19/2019 06/21/2021 Sepsis 05/19/2019 12/10/2019 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 11/12/2017 06/21/2021 Overview: dx 2014 Acute respiratory failure 10/21/2017 Other pulmonary embolism wit hout acute cor pulmonale 10/21/2017 06/21/2021 Cardiogenic shock 10/21/2017 06/21/2021 Dyspnea 09/04/2017 06/21/2021 documented as of this encounter (statuses as of 09/01/2023) [facility] N[facility]* Problem Noted Date Diagnosed Date Resolved Date Hypercalcemia 06/15/2019 02/26/2023 Gastrointestinal hemorrhage 05/19/2019 12/10/2019 Pneumonia 05/19/2019 06/21/2021 Sepsis 05/19/2019 12/10/2019 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 11/12/2017 06/21/2021 Overview: dx 2015 Other pulmonary embolism wit hout acute cor pulmonale 10/21/2017 06/21/2021 Cardiogenic shock 10/21/2017 06/21/2021 Dyspnea 09/04/2017 06/21/2021 documented as of this encounter (statuses as of 09/10/2023) [facility]* Problem Noted Date Diagnosed Date Resolved Date Hypercalcemia 06/15/2019 02/26/2023 Gastrointestinal hemorrhage 05/19/2019 12/10/2019 Pneumonia 05/19/2019 06/21/2021 Sepsis 05/19/2019 12/10/2019 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 11/12/2017 06/21/2021 Overview: dx 2015 Other pulmonary embolism wit hout acute cor pulmonale 10/21/2017 06/21/2021 Cardiogenic shock 10/21/2017 06/21/2021 Dyspnea 09/04/2017 06/21/2021 documented as of this encounter (statuses as of 09/18/2023) [facility]* Problem Noted Date Diagnosed Date Resolved Date Hypercalcemia 06/15/2019 02/26/2023 Gastrointestinal hemorrhage 05/19/2019 12/10/2019 Pneumonia 05/19/2019 06/21/2021 Sepsis 05/19/2019 12/10/2019 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 11/12/2017 06/21/2021 Overview: dx 2015 Other pulmonary embolism wit hout acute cor pulmonale 10/21/2017 06/21/2021 Cardiogenic shock 10/21/2017 06/21/2021 Dyspnea 09/04/2017 06/21/2021 documented as of this encounter (statuses as of 10/15/2023) [facility] Narrative* Problem Noted Date Diagnosed Date Resolved Date Hypercalcemia 06/15/2019 02/26/2023 Gastrointestinal hemorrhage 05/19/2019 12/10/2019 Pneumonia 05/19/2019 06/21/2021 Sepsis 05/19/2019 12/10/2019 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 11/12/2017 06/21/2021 Overview: dx 2015 Other pulmonary embolism wit hout acute cor pulmonale 10/21/2017 06/21/2021 Cardiogenic shock 10/21/2017 06/21/2021 Dyspnea 09/04/2017 06/21/2021 documented as of this encounter (statuses as of 01/02/2024) [facility]* Problem [...] of this encounter (statuses as of 02/20/2022) [facility]* Problem [...] of this encounter (statuses as of 06/25/2022) [facility]* Problem [...] of this encounter (statuses as of 07/05/2022) [facility]* Problem [...] of this encounter (statuses as of 07/31/2022) [facility]* Problem [...] of this encounter (statuses as of 11/06/2022) [facility]* Problem [...] of this encounter (statuses as of 11/13/2022) [facility]* Problem [...] of this encounter (statuses as of 01/07/2023) [facility]* Diagnosis Dizziness, nonspecific- Primary Dizziness and giddiness Multiple opens wound of lower extremity, unspecified laterality, subsequent encounter Left hemiparesis (HCC) Hemiplegia, unspecified, affecting unspecified side Multiple sclerosis (HCC) Multiple sclerosis Chronic fatigue syndrome Need for vaccination Need for prophylactic vaccination and inoculation against unspecified single disease Essential hypertension, benign documented in this encounter [facility] note* Diagnosis Medicare annual wellness visit, subsequent- Primary Routine general medical examination at a health care facility Encounter for screening for diabetes mellitus Screening for diabetes mellitus [facility] Diagnosis GERD without esophagitis Esophageal reflux documented in this encounter [facility] note* Diagnosis Left hemiparesis (HCC)- Primary Hemiplegia, unspecified, affecting unspecified side Multiple sclerosis (HCC) Multiple sclerosis Essential hypertension, benign Episode of recurrent major depressive disorder, unspecified depression episode severity (HCC) Dependence on wheelchair Paroxysmal atrial fibrillation (HCC) Atrial fibrillation Vitamin D deficiency Unspecified vitamin D deficiency Screening for prostate cancer Special screening for malignant neoplasm of prostate documented in this encounter [facility] note* Diagnosis Medicare annual wellness visit, subsequent- Primary Routine general medical examination at a health care facility [facility] Reason for Referral Specialty Diagnoses / Procedures Referred By Contbutch t Referred To Contact Diagnoses Dizziness, nonspecific 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, 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, 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 [address] [place] [address] Referral ID Status Reason Start Date Expiration Date V isits Requested Visits Authorized [id number] Authorized 11/24/2021 11/23/2023 1 1 Summary Purpose [...] or prosecute any alcohol or drug abuse patient.[facility] HospitalIn the event this information is protected by the Federal Confidentiality of Alcohol and Drug Abuse Patient Records regulations: The Federal rules restrict any use of the information to criminally investigate or prosecute any alcohol or drug abuse patient.[facility] HospitalIn the event this information is protected by the Federal Confidentiality of Alcohol and Drug Abuse Patient Records regulations: The Federal rules restrict any use of the information to criminally investigate or prosecute any alcohol or drug abuse patient.[facility] HospitalIn the event this information is protected by the Federal Confidentiality of Alcohol and Drug Abuse Patient Records regulations: The Federal rules restrict any use of the information to criminally investigate or prosecute any alcohol or drug abuse patient.[facility] HospitalIn the event this information is protected by the Federal Confidentiality of Alcohol and Drug Abuse Patient Records regulations: The Federal rules restrict any use of the information to criminally investigate or prosecute any alcohol or drug abuse patient.[facility] HospitalIn the event this information is protected by the Federal Confidentiality of Alcohol and Drug Abuse Patient Records regulations: The Federal rules restrict any use of the information to criminally investigate or prosecute any alcohol or drug abuse patient.[facility] HospitalIn the event this information is protected by the Federal Confidentiality of Alcohol and Drug Abuse Patient Records regulations: The Federal rules restrict any use of the information to criminally investigate or prosecute any alcohol or drug abuse patient.[facility] HospitalIn the event this information is protected by the Federal Confidentiality of Alcohol and Drug Abuse Patient Records regulations: The Federal rules restrict any use of the information to criminally investigate or prosecute any alcohol or drug abuse patient.[facility] HospitalIn the event this information is protected by the Federal Confidentiality of Alcohol and Drug Abuse Patient Records regulations: The Federal rules restrict any use of the information to criminally investigate or prosecute any alcohol or drug abuse patient.[facility] HospitalIn the event this information is protected by the Federal Confidentiality of Alcohol and Drug Abuse Patient Records regulations: The Federal rules restrict any use of the information to criminally investigate or prosecute any alcohol or drug abuse patient.[facility] HospitalIn the event this information is protected by the Federal Confidentiality of Alcohol and Drug Abuse Patient Records regulations: The Federal rules restrict any use of the information to criminally investigate or prosecute any alcohol or drug abuse patient.[facility] HospitalIn the event this information is protected by the Federal Confidentiality of Alcohol and Drug Abuse Patient Records regulations: The Federal rules restrict any use of the information to criminally investigate or prosecute any alcohol or drug abuse patient.[facility] HospitalIn the event this information is protected by the Federal Confidentiality of Alcohol and Drug Abuse Patient Records regulations: The Federal rules restrict any use of the information to criminally investigate or prosecute any alcohol or drug abuse patient.[facility] HospitalIn the event this information is protected by the Federal Confidentiality of Alcohol and Drug Abuse Patient Records regulations: The Federal rules restrict any use of the information to criminally investigate or prosecute any alcohol or drug abuse patient.[facility] HospitalIn the event this information is protected by the Federal Confidentiality of Alcohol and Drug Abuse Patient Records regulations: The Federal rules restrict any use of the information to criminally investigate or prosecute any alcohol or drug abuse patient.[facility] HospitalIn the event this information is protected by the Federal Confidentiality of Alcohol and Drug Abuse Patient Records regulations: The Federal rules restrict any use of the information to criminally investigate or prosecute any alcohol or drug abuse patient.[facility] HospitalIn the event this information is protected by the Federal Confidentiality of Alcohol and Drug Abuse Patient Records regulations: The Federal rules restrict any use of the information to criminally investigate or prosecute any alcohol or drug abuse patient.[facility] HospitalIn the event this information is protected by the Federal Confidentiality of Alcohol and Drug Abuse Patient Records regulations: The Federal rules restrict any use of the information to criminally investigate or prosecute any alcohol or drug abuse patient.[facility] HospitalIn the event this information is protected by the Federal Confidentiality of Alcohol and Drug Abuse Patient Records regulations: The Federal rules restrict any use of the information to criminally investigate or prosecute any alcohol or drug abuse patient.[facility] HospitalIn the event this information is protected by the Federal Confidentiality of Alcohol and Drug Abuse Patient Records regulations: The Federal rules restrict any use of the information to criminally investigate or prosecute any alcohol or drug abuse patient.[facility] Reason for Visit (unrecogniz ed section [...] Reason Comments Forms Reason Comments Nursing POC. 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 Assembler Relationship Specialty Start Date End Date Robert Mendoza MD [address] [place] [address] PCP - General Internal Medicine 06/21/21 Seater Assembler Relationship Specialty Start Date End Date Robert Mendoza MD [address] [place] [address] PCP - General Internal Medicine 06/21/21 Seater Assembler Relationship Specialty Start Date End Date Robert Mendoza MD [address] [place] [address] PCP - General Internal Medicine 06/21/21 Seater Assembler Relationship Specialty Start Date End Date Robert Mendoza MD [address] [place] [address] PCP - General Internal Medicine 06/21/21 Seater Assembler Relationship Specialty Start Date End Date Robert Mendoza MD [address] [place] [address] PCP - General Internal Medicine 06/21/21 Seater Assembler Relationship Specialty Start Date End Date Robert Mendoza MD [address] [place] [address] PCP - General Internal Medicine 06/21/21 Seater Assembler Relationship Specialty Start Date End Date Robert Mendoza MD [address] [facility] [place] [place] [address] PCP - General Internal Medicine 06/21/21 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 Assembler Relationship Specialty Start Date End Date Robert Mendoza MD [address] [facility] [place] [address] PCP - General Internal Medicine 06/21/21 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 Assembler Relationship Specialty Start Date End Date Robert Mendoza MD [address] [facility] [place] [address] PCP - General Internal Medicine 06/21/21 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 [facility]. provides no warranty or guarantee of the accuracy or completeness of information in this document.
[2024-01-28] MEDS: Lactated Ringers 1,000 ML 15 ML IV (06:44)
[2024-01-28] MEDS: Cefazolin 3 GM in 0.9% Normal Saline (100mL Bag) 100 ML IV (07:29)
--- NOTE | 2024-01-28 07:30 | CYSPIN_PTH ---
PATHOLOGY RESULTS PATIENT: NERY MIDDLETON LOC: [facility] U#:[id number] AGE/SX: 68/M ROOM: [facility] RE01/28/[address]: Dr. Wilmer Bernardo MD : 1955 BED: 1 DIS: 02/02/2024 SPEC #: [id number] RECD: 01/28/24 08:51 STATUS: HELDER SIERRA #: [id number] RASHID: 01/28/24 07:[address]: Wilmer Bernardo DEPT: CYTOLOGY RECD BY: Joanne Hussein ENTERED: 01/28/24 10:21 SP TYPE: CYSPIN FL OTHR DR: Dr. Robert John MD Tissues: Urine Procedures: Pap Stain (control) Special Stain Group II Cytospin Fluid HEADER OPERATION: Cysto, stent placement, retrograde PRE-OP DIAGNOSIS: Left hydronephrosis TISSUE SUBMITTED: Left renal pelvis fluid for cytology DIAGNOSIS CYTOLOGY Left renal pelvis fluid for cytology (cytospin): Negative for high-grade urothelial carcinoma (NHGUC), Jennifer System Category II. Marked acute inflammation. See comment. SJ:tiffanie 01/28/2024 COMMENT Clinical correlation and appropriate follow up are necessary. The Jennifer System for urine cytology diagnostic categorization was used in the evaluation of this case. CYTOLOGY STUDY Slides are reviewed. CYTOLOGY GROSS Received is 10 ml of goodrich cloudy fluid labeled with the patient's name and and designated per the requisition as urine. Submitted for cytology preparation. / tiffanie 01/28/2024 TC:2 CPT: 06118
--- NOTE | 2024-01-28 08:09 | PCM.HP.STD ---
HPI - General General Date of Service: 01/28/24 Chief Complaint: Infected left kidney stones HPI Narrative NERY MIDDLETON, is a 68 M who presents for a percutaneous approach the left kidney to remove stones or infected PFSH Medical History Abnormal EKG Atrial septal defect Bladder cancer Cancer Cardiology follow-up encounter Chronic anticoagulation COVID-19 CPAP (continuous positive airway pressure) dependence Depression Easy bruising Excessive bleeding Gastric reflux High cholesterol History of atrial fibrillation History of echocardiogram History of edema Hx of multiple sclerosis Hyperlipidemia Hypertension Kidney stones Multiple sclerosis Non-smoker Normal stress echocardiogram Obstructive sleep apnea On home oxygen therapy Paroxysmal atrial fibrillation Pulmonary embolism Recurrent UTI Sleep apnea Syncope due to orthostatic hypotension Uses wheelchair Wears glasses Home Medications ocrelizumab 30 mg/mL intravenous solution (Ocrevus) 600 mg IV .COMPLEX multiple sclerosis 11/04/17 [History Last Taken 10/03/23] cholecalciferol (vitamin D3) 25 mcg (1,000 unit) tablet 5,000 unit PO DAILY supplement 05/28/18 [History Last Taken 01/27/24] multivitamin with folic acid 400 mcg tablet 1 tab PO DAILY supplement 05/28/18 [History Last Taken 01/27/24] pantoprazole 40 mg tablet,delayed release 40 mg PO DAILY reflux 12/01/19 [History Last Taken 01/28/24] potassium citrate 15 mEq (1,620 mg) tablet,extended release 15 meq PO BID supplement ##60 02/04/20 [Rx Last Taken 01/27/24] albuterol sulfate 2.5 mg/3 mL (0.083 %) solution for nebulization 2.5 mg (3 mL) inhalation Q4H PRN shortness of breath or wheezing #180 vials 01/17/21 [Rx Last Taken 08/18/23] duloxetine 60 mg capsule,delayed release 60 mg PO QHS nerve 07/02/22 [History Last Taken 01/27/24] meclizine 25 mg tablet 25 mg PO DAILY PRN Dizziness 07/02/22 [History Last Taken 08/17/23] tamsulosin 0.4 mg capsule 0.4 mg PO DAILY prostate 07/02/22 [History Last Taken 01/27/24] apixaban 5 mg tablet 5 mg PO BID blood thinner #180 tabs 05/15/23 [Rx Last Taken 01/24/24] simvastatin 20 mg tablet 20 mg PO QHS cholesterol 07/02/23 [History Last Taken 01/27/24] lisdexamfetamine 50 mg capsule 50 mg PO DAILY MS 07/03/23 [History Last Taken 01/27/24] sodium bicarbonate 650 mg tablet 650 mg PO BID supplement 07/03/23 [History Last Taken 01/27/24] lisinopril 20 mg tablet 20 mg PO DAILY blood pressure 08/11/23 [History Last Taken 01/28/24] vitamin E 200 unit capsule 400 unit PO DAILY vitamin 08/18/23 [History Last Taken 01/27/24] sodium chloride 0.65 % nasal spray aerosol 2 spray NASAL TID PRN PRN NASAL DRYNESS #100 mL 08/26/23 [Rx Last Taken Unknown] tizanidine 4 mg tablet 4 mg PO PRN 09/23/23 [History Last Taken Unknown] carvedilol 12.5 mg tablet See Rx Instructions .Route .COMPLEX #180 tabs 11/18/23 [Rx Last Taken 01/28/24] furosemide 40 mg tablet (Lasix) 40 mg PO DAILY 01/07/24 [History Last Taken 01/27/24] sennosides 8.6 mg-docusate sodium 50 mg tablet (Stool Softener-Stimulant Laxative) 2 tab PO PRN 01/20/24 [History Last Taken Unknown] amoxicillin 500 mg capsule 500 mg PO TID #15 caps 01/28/24 [Rx Last Taken Unknown] Allergy/AdvReac Type Severity Reaction Status Date / Time No Known Allergies Allergy Verified 01/28/24 06:36 Family History Father CAD (coronary artery disease) Hypertension Myocardial infarction Mother Hypertension Sister Multiple sclerosis Surgical History History of bladder surgery History of cystoscopy History of esophagogastroduodenoscopy (EGD) History of lithotripsy History of vasectomy S/P ureteral stent placement Social History household members: spouse and family Smoking Status: Never smoker alcohol intake: never substance use type: does not use caffeine: Yes (very little) Vital Signs Vital Signs Vital Signs: 01/28/24 06:40 01/28/24 06:40 Temperature 97 F L Temperature Source Temporal Pulse Rate 87 Respiratory Rate 17 Respiratory Pattern Normal Blood Pressure 119/73 Blood Pressure Mean 88 Blood Pressure Source Monitor Blood Pressure Position Semi-Fowlers Blood Pressure Location Right Arm Pulse Ox 91 Oxygen Delivery Method Room Air Weight Weight: 134.717 kg Body Mass Index (BMI) 34.3
--- NOTE | 2024-01-28 08:10 | DCINST_ITS ---
Discharge Instructions Diet Discharge Diet: No restrictions Activity Discharge Activity: Return to Normal Activity and May Not Drive (while taking narcotic pain medications.) Dressing / Incision Call your doctor if you observe: Fever of 101 or Higher Follow Up Care Please Follow Up With: Wilmer Bernardo MD When: Call [phone] for an appointment Test Results: Test results from this visit will be discussed in further detail at your follow- up appointment, if applicable. Discharge Plan Admission Primary Reason for Your Visit: Infected left kidney stone Attending Provider: Wilmer Bernardo Primary Care Provider: Robert John Discharge Orders/Prescriptions Prescriptions: New amoxicillin 500 mg capsule 500 mg PO TID Qty: 15 0RF Continued ocrelizumab [Ocrevus] 30 mg/mL solution 600 mg IV .COMPLEX Patient Comments: every 6 months Rx Instructions: every 6 months simvastatin 20 mg tablet 20 mg PO QHS sodium bicarbonate 650 mg tablet 650 mg PO BID Patient Comments: TAKE 1 TABLET BY MOUTH TWICE A DAY furosemide [Lasix] 40 mg tablet 40 mg PO DAILY cholecalciferol (vitamin D3) 1,000 UNIT tablet 5,000 unit PO DAILY Patient Comments: vitamin multivitamin with folic acid 1 TABLET tablet 1 tab PO DAILY Patient Comments: vitamin pantoprazole 40 MG tablet 40 mg PO DAILY lisdexamfetamine 50 mg capsule 50 mg PO DAILY Patient Comments: add potassium citrate 15 MEQ tablet extended release 15 meq PO BID Qty: 60 5RF meclizine 25 mg tablet 25 mg PO DAILY PRN (Reason: Dizziness) Patient Comments: TAKE 1 TABLET BY MOUTH TWICE A DAY NEEDED duloxetine 60 mg capsule,delayed release(DR/EC) 60 mg PO QHS Patient Comments: TAKE 1 CAPSULE BY MOUTH EVERY DAY tamsulosin 0.4 mg capsule 0.4 mg PO DAILY tizanidine 4 mg tablet 4 mg PO PRN sennosides-docusate sodium [Stool Softener-Stimulant Laxat] 8.6-50 mg Tablet 2 tab PO PRN lisinopril 20 mg tablet 20 mg PO DAILY Patient Comments: TAKE 1 TABLET BY MOUTH EVERY DAY vitamin E 200 unit capsule 400 unit PO DAILY sodium chloride 0.65 % Aerosol,Dahlgren 2 spray NASAL TID PRN PRN (Reason: NASAL DRYNESS) Qty: 100 0RF albuterol sulfate 2.5 mg /3 mL (0.083 %) solution for nebulization 2.5 mg INHALATION Q4H PRN (Reason: shortness of breath or wheezing) Qty: 180 6RF apixaban 5 mg tablet 5 mg PO BID Qty: 180 6RF Patient Comments: STOP 3 DAYS PRIOR carvedilol 12.5 mg tablet See Rx Instructions .ROUTE .COMPLEX Qty: 180 3RF Dose Instruction: TAKE 1 TABLET BY MOUTH TWICE A DAY WITH FOOD Rx Instructions: TAKE 1 TABLET BY MOUTH TWICE A DAY WITH FOOD Referrals / Follow Up: Robert John MD [Primary Care Provider] - Disposition Disposition (needs filled in before D/C Order can be placed): Home, Self Care
--- NOTE | 2024-01-28 08:11 | PCM.OPRPT ---
Report of Operation Date of Procedure: 01/28/24 Pre-Operative Diagnosis: Left renal calculi infected Post-Operative Diagnosis: The same Surgery/Procedure Performed:: Cystoscopy left retrograde pyelogram left stent placement Description of Surgical Findings:: Planning for a percutaneous left nephrolithotomy and removal of stone patient was taken back to the operating room after smooth induction of anesthesia was placed in dorsolithotomy position. Penis and testicles were prepped and draped in usual sterile fashion went into the bladder with a 21 Divehi rigid cystourethroscope cannulated the left ureteral orifice advanced a wire up into the kidney over the wire advanced a balloon dilator then pulled back fluid from balloon dilator I did a retrograde pyelogram he could see a distended left kidney with hydronephrosis and then they had jose maria purulent urine within the left kidney because of this we have the board the idea of proceeding with a percutaneous nephrostolithotomy high chance and risk for sepsis this patient is fairly frail and would not tolerate septic event so we placed a stent also Vo catheter to drain the kidney and decompress the system with the reschedule him in the future for percutaneous left nephrolithotomy. He will go home with a stent in the Vo catheter for now. Surgeon: Wilmer Bernardo Type of Anesthesia: General Admit VTE Documentation VTE Present on Admission: No VTE Mechan Device Prophylaxis: SCD's VTE Pharm Prophylaxis ordered?: No
[2024-01-28] MEDS: Lactated Ringers 1,000 ML 75 ML IV ×2 (08:40→16:37)
--- NOTE | 2024-01-28 08:45 | SUR.PHASEI ---
SBP 50-60'S, HR 60'S, DENIES ANY NAUSEA, LIGHT-HEADEDNESS, OTHER C/O, STATES HE JUST FEELS SLEEPY FROM PROCEDURE. DENIES PAIN. WILL REPOSITION BP CUFF, PLACE IN [place] AND WILL CALL DR JOYA, ANESTHESIA, IF NO IMPROVEMENT.
--- OUTSIDE RECORDS SUMMARY | 2024-01-28 10:55 | XMS RPT_ITS | CCD ---
Author Name Unknown Address [address] [facility] [address] [place] [address] Organization [facility] Care Team Providers Care Guide Travel Name Role Phone Robert Mendoza MD Primary Care Provider [phone] ROBERT MENDOZA Attending Unavailable ROBERT MENDOZA Referring [...] Coronary atherosclerosis; Translations: [Atherosclerotic heart disease of [place] coronary artery without angina pectoris] Onset: 10-21-2017 [...] sources) Long-term current use of anticoagulant; Translations: [long term (current) use of anticoagulants] Onset: 12-22-2019 12-22-2019 [...] 12:10-0500 Body height 198.1 cm Aura Blake 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 Work Phone: [facility] 01-02-2024 12:10-0500 Body weight 136.08 kg Aura Blake 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 Work Phone: [facility] 01-02-2024 12:10-0500 Diastolic blood pressure 80 mm[Hg] Aura Blake 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 Work Phone: [facility] 01-02-2024 12:10-0500 Heart rate 76 /min Aura Blake 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 Work Phone: [facility] 01-02-2024 12:10-0500 Respiratory rate 20 /min Aura Blake 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 Work Phone: [facility] 01-02-2024 12:10-0500 Systolic blood pressure 116 mm[Hg] Aura Blake 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 Work Phone: [facility] 05-09-2023 08:51-0400 Diastolic blood pressure 80 mm[Hg] Robert Mendoza MD Work Phone: [facility] 05-09-2023 08:51-0400 Heart rate 80 /min Robert Mendoza MD Work Phone: [facility] 05-09-2023 08:51-0400 Respiratory rate 16 /min Robert Mendoza MD Work Phone: [facility] 05-09-2023 08:51-0400 Systolic blood pressure 110 mm[Hg] Robert Mendoza MD Work Phone: [facility] 02-26-2023 09:24-0400 Diastolic blood pressure 68 mm[Hg] Robert Mendoza MD Work Phone: [facility] 02-26-2023 09:24-0400 Heart rate 92 /min Robert Mendoza MD Work Phone: [facility] 02-26-2023 09:24-0400 Respiratory rate 16 /min Robert Mendoza MD Work Phone: [facility] 02-26-2023 09:24-0400 Systolic blood pressure 120 mm[Hg] Robert Mendoza MD Work Phone: [facility] 11-06-2022 08:00-0500 Body temperature 97.39 [degF] Maryuri Older 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 Work Phone: [facility] 11-06-2022 08:00-0500 Diastolic blood pressure 78 mm[Hg] Maryuri Older 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 Work Phone: [facility] 11-06-2022 08:00-0500 Heart rate 88 /min Maryuri Older 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 Work Phone: [facility] 11-06-2022 08:00-0500 Respiratory rate 16 /min Maryuri Older 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 Work Phone: [facility] 11-06-2022 08:00-0500 Systolic blood pressure 126 mm[Hg] Maryuri Older 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 Work Phone: [facility] 02-20-2022 09:38-0400 Body temperature 96.4 [degF] Robert Mendoza MD Work Phone: [facility] 02-20-2022 09:38-0400 Diastolic blood pressure 74 mm[Hg] Robert Mendoza MD Work Phone: [facility] 02-20-2022 09:38-0400 Heart rate 72 /min Robert Mendoza MD Work Phone: [facility] 02-20-2022 09:38-0400 Respiratory rate 16 /min Robert Mendoza MD Work Phone: [facility] 02-20-2022 09:38-0400 Systolic blood pressure 124 mm[Hg] Robert Mendoza MD Work Phone: [facility] Encounters Encounter Date Encounter Type Care Provider Facility Start: 01-02-2024 End: 01-02-2024 ambulatory ROBERT MENDOZA Facility:[facility] Start: 01-02-2024 End: 01-02-2024 Patient encounter procedure Arua Lozano 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 Work Phone: [facility] [place] Procedures Date Procedure Procedure Detail Performing Clinician Start: 03-14-2023 Lipid 1996 panel - S nicole or Plasma Robert Mendoza MD Work Phone: Start: 06-01-2018 Colonoscopy Robert Connell MD Work Phone: Start: 01-17-2016 Colonoscopy Robert Connell MD Work Phone: Plan of Treatment Date Care Activity Detail Author Start: 02-21-2032 Urine microalbumin profile [facility] Start: 06-01-2028 Colonoscopy COLONOSCOPY [facility] Start: 06-01-2028 COLORECTAL CANCER SCREENING COLORECTAL CANCER SCREENING [facility] Start: 03-14-2028 Lipid 1996 panel - S nicole or Plasma Lipid Screening [facility] Start: 03-14-2028 Lipid panel Lipid Screening [facility] Start: 03-14-2028 LIPID SCREEN LIPID SCREEN [facility] Start: 03-14-2028 PROSTATE CANCER SCRE ENING DISCUSSION PROSTATE CANCER SCREENING DISCUSSION [facility] Start: 03-14-2028 Prostate specific an tigen measurement Prostate Cancer Screening Discussion [facility] Start: 02-06-2027 LIPID SCREEN LIPID SCREEN [facility] Start: 03-14-2026 DIABETES SCREEN DIABETES SCREEN [facility] Start: 03-14-2026 Diabetes Screening Diabetes Screenin g [facility] Start: 01-17-2026 Colonoscopy COLONOSCOPY [facility] Start: 01-17-2026 COLORECTAL CANCER SCREENING COLORECTAL CANCER SCREENING [facility] Start: 01-17-2026 Screening for malign ant neoplasm of colon [facility] Start: 11-06-2025 DIABETES SCREEN DIABETES SCREEN [facility] Start: 06-15-2025 Pneumococcal Vaccine : 65+ (3 - PPSV23 or PCV20) Pneumococcal Vaccine: 65+ (3 - PPSV23 or PCV20) [facility] Start: 06-15-2025 Pneumococcal Vaccine : 65+ (3 of 3 - PPSV23 or PCV20) Pneumococcal Vaccine: 65+ (3 of 3 - PPSV23 or PCV20) [facility] Start: 06-15-2025 PNEUMOCOCCAL: 65+ (#3) PNEUMOCOCCAL: 65+ (#3) [facility] Start: 06-15-2025 PNEUMOCOCCAL: 65+ (2 - PPSV23 or PCV20) PNEUMOCOCCAL: 65+ (2 - PPSV23 or PCV20) [facility] Start: 06-15-2025 PNEUMOCOCCAL: 65+ (3 - PPSV23 if available, else PCV20) PNEUMOCOCCAL: 65+ (3 - PPSV23 if available, else PCV20) [facility] Start: 06-15-2025 PNEUMOCOCCAL: 65+ (3 - PPSV23 or PCV20) PNEUMOCOCCAL: 65+ (3 - PPSV23 or PCV20) [facility] Start: 02-06-2025 DIABETES SCREEN DIABETES SCREEN [facility] Start: 01-02-2025 Annual PCP Team Ballast Regulator Operator minor Disease Visit Annual PCP Team Chronic Disease Visit [facility] Start: 01-02-2025 BP Controlled (<130/80) BP Controlle d (<130/80) [facility] Start: 01-02-2025 Covid-19 Vaccine ( season) Covid-19 Vaccine () [facility] Immunizations Immunization Date Immunization Notes Care Provider Leia [email or web address] 11-06-2022 zoster vaccine recombinant Aura Older 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 Work Phone: [facility] Work Phone: 09-25-2022 influenza virus vacc ine, unspecified formulation Robert Mendoza MD Work Phone: [facility] 02-20-2022 tetanus toxoid, redu leonardo diphtheria toxoid, and acellular pertussis vaccine, adsorbed Robert Mendoza MD Work Phone: [facility] Work Phone: 02-20-2022 zoster vaccine recombinant Robert Mendoza MD Work Phone: [facility] Work Phone: 08-31-2021 influenza, injectabl e, quadrivalent, contains preservative Robert Mendoza MD Work Phone: [facility] 02-07-2021 COVID-19 vaccine, fu ll dose (MODERNA) Robert Mendoza MD Work Phone: [facility] 01-11-2021 COVID-19 vaccine, fu ll dose (MODERNA) Robert Mendoza MD Work Phone: [facility] 09-07-2020 influenza, seasonal, injectable Robert Mendoza MD Work Phone: [facility] 09-07-2020 influenza, seasonal, injectable, preservative free Robert Mendoza MD Work Phone: [facility] Work Phone: 06-15-2020 pneumococcal polysaccharide vaccine, 23 valent Robert Mendoza MD Work Phone: [facility] 09-07-2019 influenza, seasonal, injectable, preservative free Robert Mendoza MD Work Phone: [facility] Work Phone: 09-24-2018 influenza, injectabl e, quadrivalent, contains preservative Robert Mendoza MD Work Phone: [facility] 08-19-2017 influenza, seasonal, injectable, preservative free Robert Mendoza MD Work Phone: [facility] 10-07-2016 influenza, seasonal, injectable Robert Mendoza MD Work Phone: [facility] 11-06-2015 pneumococcal conjuga te vaccine, 13 valent Robert Mendoza MD Work Phone: [facility] 10-05-2015 influenza, injectabl e, quadrivalent, contains preservative Robert Mendoza MD Work Phone: [facility] Work Phone: 09-25-2015 influenza, seasonal, injectable, preservative free Robert Mendoza MD Work Phone: [facility] Work Phone: 09-17-2015 pneumococcal conjuga te vaccine, 13 valent Robert Mendoza MD Work Phone: [facility] 10-13-2014 influenza, seasonal, injectable Robert Mendoza MD Work Phone: [facility] 08-24-2014 influenza, seasonal, injectable Robert Mendoza MD Work Phone: [facility] 08-24-2014 influenza, seasonal, injectable, preservative free Robert Mendoza MD Work Phone: [facility] Work Phone: 10-08-2013 influenza virus vacc ine, unspecified formulation Robert Mendoza MD Work Phone: [facility] 08-22-2012 influenza virus vacc ine, unspecified formulation Robert Mendoza MD Work Phone: [facility] Work Phone: 11-01-2011 influenza virus vacc ine, unspecified formulation Robert Mendoza MD Work Phone: [facility] 11-06-2009 novel influenza-H1N1 -09, all formulations Robert Mendoza MD Work Phone: [facility] Work Phone: 11-03-2009 tetanus and diphther ia toxoids, adsorbed, preservative free, for adult use (2 Lf of tetanus toxoid and 2 Lf of diphtheria toxoid) Robert Mendoza MD Work Phone: [facility] Work Phone: Payers Date Payer Category Payer Medicare AETNA MEDICARE A ETNA MEDICARE PPO [id number] 2021-Present [phone] [address] [place] [address] PPO [id number] 2021 Medicare AETNA MEDICARE A ETNA MEDICARE PPO [id number] 2021-Present [phone] [address] [place] [address] PPO [id number] 2021 Medicare [id number] Social History Date Type Detail Facility Start: 02-12-2018 End: 02-26-2023 Tobacco smoking status NHIS Never smoked tobacco [facility] Work Phone: Start: 08-31-2021 End: 01-02-2024 Alcohol intake Current non-drinker of alcohol (finding) [facility] Start: 12-12-2020 End: 11-02-2022 History SDOH Alcohol Frequency 1 [facility] Start: 12-12-2020 History SDOH Alcohol Std Drinks 98 [facility] Start: 12-12-2020 End: 11-02-2022 History SDOH Social Connections Phone 4 [facility] Start: 12-12-2020 End: 11-02-2022 History SDOH Social Connections Get Together 2 [facility] Start: 12-12-2020 End: 11-02-2022 History SDOH Social Connections Living 3 [facility] Start: 12-12-2020 End: 11-02-2022 History SDOH Physical Activity DPW 0 [facility] Start: 12-12-2020 End: 11-02-2022 History SDOH Financial 5 [facility] Start: 12-12-2020 Education 12 [facility] Start: 1955 Sex Assigned At Male [facility] Start: 02-10-2022 End: 02-20-2022 Exposure to SARS-CoV-2 (event) Not sure [facility] Work Phone: Start: 02-12-2018 End: 02-26-2023 Tobacco use and exposure Smokeless tobacco non-user [facility] Start: 11-02-2022 End: 05-09-2023 History of Social function [facility] Start: 11-02-2022 End: 05-09-2023 Social connection and isolation panel [facility] Do you belong to any clubs or organizations such as congregational groups, unions, fraternal or athletic groups, or school groups? No [facility] Are you now , , , , never or living with a partner? [facility] How often to you hav e a drink containing alcohol? Never [facility] How many standard dr inks containing alcohol do you have on a typical day? Patient does not drink [facility] How hard is it for y ou to pay for the very basics like food, housing, medical care, and heating Not very hard [facility] Do you feel stress - tense, restless, nervous, or anxious, or unable to sleep at night because your mind is troubled all the time - these days [OSQ] To some extent [facility] (I/We) worried wheth er (my/our) food would run out before (I/we) got money to buy more. Never true [facility] Start: 01-18-2022 Gender identity Identifies as male gender (finding) [facility] Start: 01-18-2022 Sexual orientation Heterosexual (finding) [facility] Clinical Notes 05-19-2019 to 01-02-2024 Patient InstructionsAura Lozano APRN.CNP - 01/02/2024 12:24 PM ESTTelephone Encounter - Maritza Muro LPN - 09/17/2023 3:28 PM EDTPatient Instructions Note Date & Type Note Facility 01-02-2024 Note HNO ID: [id number] Author: AURA LOZANO APRN.CNP Service: ? Author [...] - General (Internal Medicine) Outside specialists seen: wind up worker- [facility], Neurologist-Dr. Roy, ophthalmology- Sary, urologist- [...] Personalized prevention plan provided Aura Lozano APRN.[facility] 01-02-2024 Instructions Aura Lozano APRN.[facility] - 01/02/2024 12:32 PM EST Screening schedule [...] review all the medicines you take, even hkbz-hwu-arzdfie medicines. As you get older, the way [...] certain medical conditions. documented in this encounter [facility] 01-02-2024 History of Presen t illness [...] - General (Internal Medicine) Outside specialists seen: wind up worker- [facility], Neurologist-Dr. Roy, ophthalmology- Sary, [...] - Personalized prevention plan provided Aura Lozano APRN.STORY TELLER documented in this encounter [facility] 09-17-2023 Miscellaneous Notes Sakshi/PRIYANKA notified. Maritza Muro LPN Continue fluid restriction and sodium restriction per discharge instructions. Pt was put on fluid restrictions while he was at [facility] last month. Nurse Sakshi states pt is still following this & is asking if pt is to continue restricting fluids? Pt has a kidney stone & having surgery to remove on 10/03/23. Sakshi will not be avail tomorrow, call the office at [phone]. She is aware pcp will return to the office 09/17/23. Dayanna Alanis LPN documented in this encounter [facility] 09-10-2023 Miscellaneous Notes David notified. Okay for orders below Aura MCKENZIE Boyer.STORY TELLER David RN with [facility] HH calls to request a continuation of nursing frequency order for once weekly x 2 more weeks for further monitoring. David requests order be called to [phone]. Deedee Mederos RN documented in this encounter [facility] 09-03-2023 Note HNO ID: [id number] Author: Robert Mendoza MD Service: ? Author Type: Physician Type: Progress Notes Filed: 09/04/2023 7:11 AM Note Text: This note was created using NoteWriter. Subjective Patient presents with: [facility] F/U Mart Josefa Middleton is a 68 year old [...] Anxiety Disorder, Unspecified Athscl Heart Disease of [place] Coronary Artery W/O Ang Pctrs Chronic Fatigue Syndrome Dependence On Wheelchair Obstructive Sleep Apnea Syndrome Ostium Secundum Type Atrial Septal Defect Personal History of Malignant Neoplasm of Bladder Vitamin D Deficiency Current Use of Pattern Chain Maker Supervisor Anticoagulation Stage 3a Chronic Kidney Disease (Hcc) [...] DAY 60 February 04, 2020 1:11pm 02-04-2020 [facility] ([id number]) Sennosides 8.6 mg cap Take by mouth. [...] Edema present. Neurolog (more content not included)... [facility] 09-01-2023 Miscellaneous Notes Third attempt to reach patient and by phone with no answer. Line rang several times and then discontinued x2, unable to leave VM. message sent requesting for patient/ to call office. HAI Mccann TC to patient and - unable to reach x2. Will try again later. Please call for update on BM Aura Boyer APRN.STORY TELLER Charlette from [facility] Home Health calling patient was discharged from [facility] yesterday, had respiratory failure, aspiration pneumonia. Plan for alf visits 1 visit this week, then 2 [...] Ni. Please advise documented in this encounter [facility] 09-01-2023 Miscellaneous Notes Ute HERNANDEZ from [facility] calling with POC for pt. OT will be seeing pt 2x per week for 3 wks then 1x per week for 1 wk with focus on strengthening and transfers. BP this morning was 108/95. Nurse will be going out later today. Just FYI. No need to call back unless concerns or changes. documented in this encounter [facility] 08-29-2023 Miscellaneous Notes Lobo with [facility] Physical Therapy calling with plan of care for patient: Will see patient 2 times per week for 4 weeks for functional mobility. No call back needed. Staci Porras RN documented in this encounter [facility] 08-18-2023 Miscellaneous Notes Lisa from [facility] calls to report that patient's oxygen [...] Clarissa Peña RN documented in this encounter [facility] 08-15-2023 Miscellaneous Notes Called and left detailed message on [employer] VM with Provider message below. If questions Glenna to call office back and speak with [facility] Triage Nurse. Zuleima Leal Ma Helder Boyer APRN.STORY TELLER Glenna- Nurse- [facility], reporting POC: she did start of care, and plans to see patient for disease and medication education 1 x week for 1 week, then 2 times week for 3 week. Please phone Glenna with verbal approval: [phone] documented in this encounter [facility] 08-13-2023 Miscellaneous Notes Call placed to Migdalia with [facility] and verbal ok given for HH, SN, PT, OT orders. Deedee Mederos RN Helder Boyer APRN.STORY TELLER Migdalia with [facility] HH calls to see if provider will follow HH orders for SN, PT, and OT. Patient to be discharging from [facility] tomorrow 08/14/2023 after being treated for UTI and pneumonia. Please call Migdalia back at [phone]. Ok to leave a message on secure [employer]. Deedee Mederos RN documented in this encounter [facility] 07-08-2023 Miscellaneous Notes Pcp rec'd via fax from [facility] enhancing mobility for pt. He completed these and they have been faxed back to [facility]. documented in this encounter [facility] 05-13-2023 Miscellaneous Notes Patient has been [...] Maritza Muro LPN documented in this encounter [facility] 05-09-2023 Note HNO ID: [id number] Author: Robert Mendoza MD Service: ? Author Type: Physician Type: Progress Notes Filed: 05/09/2023 9:16 AM Note Text: This note was created using boo-boxriter. Subjective Dusty Middleton is a 67 year old male here with spouse. Conditions were stable. He had no recent urinary tract infection. We reviewed labs from February. He was still waiting for his new wheelchair that can elevate his legs to help swelling. His specialists: Neurology: Dr. Wolff for [place] Cardiology: [facility] Urology: Dr. Bernardo chronic [...] Anxiety Disorder, Unspecified Athscl Heart Disease of [place] Coronary Artery W/O Ang Pctrs Chronic Fatigue Syndrome Dependence On Wheelchair Obstructive Sleep Apnea Syndrome Ostium Secundum Type Atrial Septal Defect Personal History of Malignant Neoplasm of Bladder Vitamin D Deficiency Current Use of Detention Anticoagulation Stage 3a Chronic Kidney Disease (Hcc) [...] DAY 60 February 04, 2020 1:11pm 02-04-2020 [facility] ([id number]) sodium bicarbonate 650 mg tablet Take 650 [...] METABOLIC PANEL 3. Athscl heart disease of [place] coronary artery w/o ang pctrs - ICD9: 414.01, ICD10: I25.10 Stable. 4. Essential hypertension, benign - ICD9: 401.1, ICD10: I10 - Controlled 5. Obstructive sleep apnea syndrome - ICD9: 327.23, ICD10: G47.33 Using and benefiting from regular CPAP use. Robert Mendoza MD [facility] 05-09-2023 Instructions Robert Mendoza MD - 05/09/2023 9:10 AM EDT FASTING BLOOD CHEMISTRY IN 6 MONTHS. COPY OF ADVANCED DIRECTIVE. documented in this encounter [facility] 05-09-2023 History of Presen t illness Narrative This note was created using [employer]. Subjective Dusty Middleton is a 67 year old male here with spouse. Conditions were stable. He had no recent urinary tract infection. We reviewed labs from February. He was still waiting for his new wheelchair that can elevate his legs to help swelling. His specialists: Neurology: Dr. [facility]ff [facility] Cardiology: [facility] Urology: Dr. Bernardo chronic [...] Anxiety Disorder, Unspecified Athscl Heart Disease of [place] Coronary Artery W/O Ang Pctrs Chronic Fatigue Syndrome Dependence On Wheelchair Obstructive Sleep Apnea Syndrome Ostium Secundum Type Atrial Septal Defect Personal History of Malignant Neoplasm of Bladder Vitamin D Deficiency Current Use of Pattern Chain Maker Supervisor Anticoagulation Stage 3a Chronic Kidney Disease (Hcc) [...] A DAY February 04, 2020 1:11pm 02-04-2020 [facility] ([id number]) sodium bicarbonate 650 mg tablet Take 650 [...] METABOLIC PANEL 3. Athscl heart disease of [place] coronary artery w/o ang pctrs - ICD9: 414.01, ICD10: I25.10 Stable. 4. Essential hypertension, benign - ICD9: 401.1, ICD10: I10 - Controlled 5. Obstructive sleep apnea syndrome - ICD9: 327.23, ICD10: G47.33 Using and benefiting from regular CPAP use. Robert Mendoza MD documented in this encounter [facility] documented in this encounter [facility]04-05-2023 NoteHNO ID: [id number] Author: Robert Mendoza MD Service: ? Author Type: Physician Type: Progress Notes Filed: 03/27/2023 2:39 PM Note Text: This note was created using [employer]. Subjective Dusty Middleton is a 67 year old male here with spouse. He needed orders for reevaluation of his motorized wheelchair sent to [facility]. His conditions were stable, and he had no acute concerns. Handicap parking also needed renewed. His specialists: Neurology: Dr. Wolff [facility] [place] Cardiology: [facility] Urology: Dr. Bernardo chronic [...] Anxiety Disorder, Unspecified Athscl Heart Disease of [place] Coronary Artery W/O Ang Pctrs Chronic Fatigue Syndrome Dependence On Wheelchair Obstructive Sleep Apnea Syndrome Ostium Secundum Type Atrial Septal Defect Personal History of Malignant Neoplasm of Bladder Vitamin D Deficiency Current Use of Detention Anticoagulation Stage 3a Chronic Kidney Disease (Hcc) [...] A DAY February 04, 2020 1:11pm 02-04-2020 [facility] ([id number]) sodium bicarbonate 650 mg tablet Take 650 [...] fibrillation (HCC) - (more content not included)... [facility]-05-2023 History of Present illness Narrative* Robert Mendoza MD - 02/26/2023 9:47 AM EDT This note was created using boo-boxriter. Subjective Dusty Middleton is a 67 year old male here with spouse. He needed orders for reevaluation of his motorized wheelchair sent to [facility]. His conditions were stable, and he had no acute concerns. Handicap parking also needed renewed. His specialists: Neurology: Dr. Wolff for [place] Cardiology: [facility] for A-fib Urology: Dr. Bernardo chronic [...] Anxiety Disorder, Unspecified Athscl Heart Disease of [place] Coronary Artery W/O Ang Pctrs Chronic Fatigue Syndrome Dependence On Wheelchair Obstructive Sleep Apnea Syndrome Ostium Secundum Type Atrial Septal Defect Personal History of Malignant Neoplasm of Bladder Vitamin D Deficiency Current Use of Pattern Chain Maker Supervisor Anticoagulation Stage 3a Chronic Kidney Disease (Hcc) [...] DAY 60 February 04, 2020 1:11pm 02-04-2020 [facility] ([id number]) sodium bicarbonate 650 mg tablet Take 650 [...] ICD9: V46.3, ICD10: Z99.3 Orders [facility] for [facility]. Handicap parking letter. 6. Paroxysmal atrial fibrillation (HCC) - ICD9: 427.31, ICD10: I48.0 Controlled. 7. Vitamin D deficiency - ICD9: 268.9, ICD10: E55.9 - VITAMIN D 25 HYDROXY 8. Screening for prostate cancer - ICD9: V76.44, ICD10: Z12.5 - Risks/benefits of prostate cancer screening discussed. screening PSA ordered - PSA/PROSTSPECAG SCRN Robert Mendoza MD documented [facility] Miscellaneous Notes* Telephone Encounter - Maritza [...] you. Maritza Muro LPN documented in this encounterMer[facility]12-14-2022 History of Present illness Narrative* Maryuri Boyer APRN.VERNON - 11/06/2022 7:59 AM EST Medicare Yearly Visit Medical B eligibilty date 2018 Date of last exam 08/31/21 PAST MEDICAL HISTORY Diagnosis Date Anxiety disorder, unspecified 10/21/2017 Athscl heart disease of [place] coronary artery w/o ang pctrs 10/21/2017 Cardiogenic [...] FLX DX W/COLLJ SPEC WHEN PFRMD 06/01/2018 [facility]-repeat 10 years-05/2028 CYSTO W LITHOTRIPSY [...] seen: Neurology: Dr. Wolff for [place] Cardiology: [facility] for A-fib Urology: Dr. Bernardo chronic [...] plan. Maryuri Boyer APRN.CNP documented in this encounterMer[facility]09-07-2022 Miscellaneous Notes* Telephone Encounter - Alexander [...] pharmacy. Alexander Kearney Ma documented in this encounterMer[facility]08-12-2022 History of Present illness Narrative* Yovana Will LPN - 07/05/2022 11:25 AM EDT Message left at pts home number to return call to a nurse to complete TCM note and arrange hospitalfollow up documented in this encounterMer[facility]08-02-2022 Miscellaneous Notes* Telephone Encounter - Maritza [...] completed prior to appointment? documented in this encounterMercy [facility]03-30-2022 History of Present illness Narrative* Robert Mendoza MD - 02/20/2022 10:05 AM EDT This note was created using boo-boxriter. Subjective Dusty Middleton is a 66 year [...] lb. Other specialists: Dr. Mathew Roy, [facility]. Dr. Ni, pulmonary. Dr. Bernardo, [...] Anxiety Disorder, Unspecified Athscl Heart Disease of [place] Coronary Artery W/O Ang Pctrs Chronic Fatigue Syndrome Dependence On Wheelchair Obstructive Sleep Apnea Syndrome Ostium Secundum Type Atrial Septal Defect Personal History of Malignant Neoplasm of Bladder Vitamin D Deficiency Hypercalcemia Current Use of Detention Anticoagulation Stage 3a Chronic Kidney Disease (Hcc) [...] DAY 60 February 04, 2020 1:11pm 02-04-2020 [facility] ([id number]) sodium bicarbonate 650 mg tablet Take 650 [...] control Robert Mendoza MD documented in this encounterMer[facility]07-23-2019 History of Past illness Narrative* Problem [...] of this encounter (statuses as of 02/26/2023) [facility] Narrative* Problem [...] of this encounter (statuses as of 05/09/2023) [facility] Narrative* Problem [...] of this encounter (statuses as of 05/13/2023) [facility] Narrative* Problem Noted Date Diagnosed Date Resolved Date Hypercalcemia 06/15/2019 02/26/2023 Gastrointestinal hemorrhage 05/19/2019 12/10/2019 Pneumonia 05/19/2019 06/21/2021 Sepsis 05/19/2019 12/10/2019 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 11/12/2017 06/21/2021 Overview: dx 2014 Acute respiratory failure 10/21/2017 Other pulmonary embolism wit hout acute cor pulmonale 10/21/2017 06/21/2021 Cardiogenic shock 10/21/2017 06/21/2021 Dyspnea 09/04/2017 06/21/2021 documented as of this encounter (statuses as of 07/08/2023) [facility] Narrative* Problem Noted Date Diagnosed Date Resolved Date Hypercalcemia 06/15/2019 02/26/2023 Gastrointestinal hemorrhage 05/19/2019 12/10/2019 Pneumonia 05/19/2019 06/21/2021 Sepsis 05/19/2019 12/10/2019 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 11/12/2017 06/21/2021 Overview: dx 2014 Acute respiratory failure 10/21/2017 Other pulmonary embolism wit hout acute cor pulmonale 10/21/2017 06/21/2021 Cardiogenic shock 10/21/2017 06/21/2021 Dyspnea 09/04/2017 06/21/2021 documented as of this encounter (statuses as of 08/13/2023) [facility] Narrative* Problem Noted Date Diagnosed Date Resolved Date Hypercalcemia 06/15/2019 02/26/2023 Gastrointestinal hemorrhage 05/19/2019 12/10/2019 Pneumonia 05/19/2019 06/21/2021 Sepsis 05/19/2019 12/10/2019 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 11/12/2017 06/21/2021 Overview: dx 2014 Acute respiratory failure 10/21/2017 Other pulmonary embolism wit hout acute cor pulmonale 10/21/2017 06/21/2021 Cardiogenic shock 10/21/2017 06/21/2021 Dyspnea 09/04/2017 06/21/2021 documented as of this encounter (statuses as of 08/15/2023) [facility] Narrative* Problem Noted Date Diagnosed Date Resolved Date Hypercalcemia 06/15/2019 02/26/2023 Gastrointestinal hemorrhage 05/19/2019 12/10/2019 Pneumonia 05/19/2019 06/21/2021 Sepsis 05/19/2019 12/10/2019 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 11/12/2017 06/21/2021 Overview: dx 2014 Acute respiratory failure 10/21/2017 Other pulmonary embolism wit hout acute cor pulmonale 10/21/2017 06/21/2021 Cardiogenic shock 10/21/2017 06/21/2021 Dyspnea 09/04/2017 06/21/2021 documented as of this encounter (statuses as of 08/19/2023) [facility] Narrative* Problem Noted Date Diagnosed Date Resolved Date Hypercalcemia 06/15/2019 02/26/2023 Gastrointestinal hemorrhage 05/19/2019 12/10/2019 Pneumonia 05/19/2019 06/21/2021 Sepsis 05/19/2019 12/10/2019 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 11/12/2017 06/21/2021 Overview: dx 2014 Acute respiratory failure 10/21/2017 Other pulmonary embolism wit hout acute cor pulmonale 10/21/2017 06/21/2021 Cardiogenic shock 10/21/2017 06/21/2021 Dyspnea 09/04/2017 06/21/2021 documented as of this encounter (statuses as of 08/30/2023) [facility] Narrative* Problem Noted Date Diagnosed Date Resolved Date Hypercalcemia 06/15/2019 02/26/2023 Gastrointestinal hemorrhage 05/19/2019 12/10/2019 Pneumonia 05/19/2019 06/21/2021 Sepsis 05/19/2019 12/10/2019 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 11/12/2017 06/21/2021 Overview: dx 2014 Acute respiratory failure 10/21/2017 Other pulmonary embolism wit hout acute cor pulmonale 10/21/2017 06/21/2021 Cardiogenic shock 10/21/2017 06/21/2021 Dyspnea 09/04/2017 06/21/2021 documented as of this encounter (statuses as of 09/01/2023) [facility] Narrative* Problem Noted Date Diagnosed Date Resolved Date Hypercalcemia 06/15/2019 02/26/2023 Gastrointestinal hemorrhage 05/19/2019 12/10/2019 Pneumonia 05/19/2019 06/21/2021 Sepsis 05/19/2019 12/10/2019 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 11/12/2017 06/21/2021 Overview: dx 2015 Other pulmonary embolism wit hout acute cor pulmonale 10/21/2017 06/21/2021 Cardiogenic shock 10/21/2017 06/21/2021 Dyspnea 09/04/2017 06/21/2021 documented as of this encounter (statuses as of 09/10/2023) [facility] Narrative* Problem Noted Date Diagnosed Date Resolved Date Hypercalcemia 06/15/2019 02/26/2023 Gastrointestinal hemorrhage 05/19/2019 12/10/2019 Pneumonia 05/19/2019 06/21/2021 Sepsis 05/19/2019 12/10/2019 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 11/12/2017 06/21/2021 Overview: dx 2015 Other pulmonary embolism wit hout acute cor pulmonale 10/21/2017 06/21/2021 Cardiogenic shock 10/21/2017 06/21/2021 Dyspnea 09/04/2017 06/21/2021 documented as of this encounter (statuses as of 09/18/2023) [facility] Narrative* Problem Noted Date Diagnosed Date Resolved Date Hypercalcemia 06/15/2019 02/26/2023 Gastrointestinal hemorrhage 05/19/2019 12/10/2019 Pneumonia 05/19/2019 06/21/2021 Sepsis 05/19/2019 12/10/2019 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 11/12/2017 06/21/2021 Overview: dx 2015 Other pulmonary embolism wit hout acute cor pulmonale 10/21/2017 06/21/2021 Cardiogenic shock 10/21/2017 06/21/2021 Dyspnea 09/04/2017 06/21/2021 documented as of this encounter (statuses as of 10/15/2023) [facility] Narrative* Problem Noted Date Diagnosed Date Resolved Date Hypercalcemia 06/15/2019 02/26/2023 Gastrointestinal hemorrhage 05/19/2019 12/10/2019 Pneumonia 05/19/2019 06/21/2021 Sepsis 05/19/2019 12/10/2019 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 11/12/2017 06/21/2021 Overview: dx 2015 Other pulmonary embolism wit hout acute cor pulmonale 10/21/2017 06/21/2021 Cardiogenic shock 10/21/2017 06/21/2021 Dyspnea 09/04/2017 06/21/2021 documented as of this encounter (statuses as of 01/02/2024) [facility] Narrative* Problem [...] of this encounter (statuses as of 02/20/2022) [facility]* Problem [...] of this encounter (statuses as of 06/25/2022) [facility]* Problem [...] of this encounter (statuses as of 07/05/2022) [facility]* Problem [...] of this encounter (statuses as of 07/31/2022) [facility]* Problem [...] of this encounter (statuses as of 11/06/2022) [facility]* Problem [...] of this encounter (statuses as of 11/13/2022) [facility]ative* Problem [...] of this encounter (statuses as of 01/07/2023) [facility]* Diagnosis Dizziness, nonspecific- Primary Dizziness and giddiness Multiple opens wound of lower extremity, unspecified laterality, subsequent encounter Left hemiparesis (HCC) Hemiplegia, unspecified, affecting unspecified side Multiple sclerosis (HCC) Multiple sclerosis Chronic fatigue syndrome Need for vaccination Need for prophylactic vaccination and inoculation against unspecified single disease Essential hypertension, benign documented in this encounter [facility] note* Diagnosis Medicare annual wellness visit, subsequent- Primary Routine general medical examination at a health care facility Encounter for screening for diabetes mellitus Screening for diabetes mellitus [facility] Diagnosis GERD without esophagitis Esophageal reflux documented in this encounter [facility] note* Diagnosis Left hemiparesis (HCC)- Primary Hemiplegia, unspecified, affecting unspecified side Multiple sclerosis (HCC) Multiple sclerosis Essential hypertension, benign Episode of recurrent major depressive disorder, unspecified depression episode severity (HCC) Dependence on wheelchair Paroxysmal atrial fibrillation (HCC) Atrial fibrillation Vitamin D deficiency Unspecified vitamin D deficiency Screening for prostate cancer Special screening for malignant neoplasm of prostate documented in this encounter [facility] note* Diagnosis Medicare annual wellness visit, subsequent- Primary Routine general medical examination at a health care facility [facility] Reason for Referral Specialty Diagnoses / Procedures Referred By Contbutch t Referred To Contact Diagnoses Dizziness, nonspecific 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, 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, 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 [address] [place] [address] Referral ID Status Reason Start Date Expiration Date V isits Requested Visits Authorized [id number] Authorized 11/24/2021 11/23/2023 1 1 Summary Purpose [...] or prosecute any alcohol or drug abuse patient.[facility] HospitalIn the event this information is protected by the Federal Confidentiality of Alcohol and Drug Abuse Patient Records regulations: The Federal rules restrict any use of the information to criminally investigate or prosecute any alcohol or drug abuse patient.[facility] HospitalIn the event this information is protected by the Federal Confidentiality of Alcohol and Drug Abuse Patient Records regulations: The Federal rules restrict any use of the information to criminally investigate or prosecute any alcohol or drug abuse patient.[facility] HospitalIn the event this information is protected by the Federal Confidentiality of Alcohol and Drug Abuse Patient Records regulations: The Federal rules restrict any use of the information to criminally investigate or prosecute any alcohol or drug abuse patient.[facility] HospitalIn the event this information is protected by the Federal Confidentiality of Alcohol and Drug Abuse Patient Records regulations: The Federal rules restrict any use of the information to criminally investigate or prosecute any alcohol or drug abuse patient.[facility] HospitalIn the event this information is protected by the Federal Confidentiality of Alcohol and Drug Abuse Patient Records regulations: The Federal rules restrict any use of the information to criminally investigate or prosecute any alcohol or drug abuse patient.[facility] HospitalIn the event this information is protected by the Federal Confidentiality of Alcohol and Drug Abuse Patient Records regulations: The Federal rules restrict any use of the information to criminally investigate or prosecute any alcohol or drug abuse patient.[facility] HospitalIn the event this information is protected by the Federal Confidentiality of Alcohol and Drug Abuse Patient Records regulations: The Federal rules restrict any use of the information to criminally investigate or prosecute any alcohol or drug abuse patient.[facility] HospitalIn the event this information is protected by the Federal Confidentiality of Alcohol and Drug Abuse Patient Records regulations: The Federal rules restrict any use of the information to criminally investigate or prosecute any alcohol or drug abuse patient.[facility] HospitalIn the event this information is protected by the Federal Confidentiality of Alcohol and Drug Abuse Patient Records regulations: The Federal rules restrict any use of the information to criminally investigate or prosecute any alcohol or drug abuse patient.[facility] HospitalIn the event this information is protected by the Federal Confidentiality of Alcohol and Drug Abuse Patient Records regulations: The Federal rules restrict any use of the information to criminally investigate or prosecute any alcohol or drug abuse patient.[facility] HospitalIn the event this information is protected by the Federal Confidentiality of Alcohol and Drug Abuse Patient Records regulations: The Federal rules restrict any use of the information to criminally investigate or prosecute any alcohol or drug abuse patient.[facility] HospitalIn the event this information is protected by the Federal Confidentiality of Alcohol and Drug Abuse Patient Records regulations: The Federal rules restrict any use of the information to criminally investigate or prosecute any alcohol or drug abuse patient.[facility] HospitalIn the event this information is protected by the Federal Confidentiality of Alcohol and Drug Abuse Patient Records regulations: The Federal rules restrict any use of the information to criminally investigate or prosecute any alcohol or drug abuse patient.[facility] HospitalIn the event this information is protected by the Federal Confidentiality of Alcohol and Drug Abuse Patient Records regulations: The Federal rules restrict any use of the information to criminally investigate or prosecute any alcohol or drug abuse patient.[facility] HospitalIn the event this information is protected by the Federal Confidentiality of Alcohol and Drug Abuse Patient Records regulations: The Federal rules restrict any use of the information to criminally investigate or prosecute any alcohol or drug abuse patient.[facility] HospitalIn the event this information is protected by the Federal Confidentiality of Alcohol and Drug Abuse Patient Records regulations: The Federal rules restrict any use of the information to criminally investigate or prosecute any alcohol or drug abuse patient.[facility] HospitalIn the event this information is protected by the Federal Confidentiality of Alcohol and Drug Abuse Patient Records regulations: The Federal rules restrict any use of the information to criminally investigate or prosecute any alcohol or drug abuse patient.[facility] HospitalIn the event this information is protected by the Federal Confidentiality of Alcohol and Drug Abuse Patient Records regulations: The Federal rules restrict any use of the information to criminally investigate or prosecute any alcohol or drug abuse patient.[facility] HospitalIn the event this information is protected by the Federal Confidentiality of Alcohol and Drug Abuse Patient Records regulations: The Federal rules restrict any use of the information to criminally investigate or prosecute any alcohol or drug abuse patient.[facility] Reason for Visit (unrecogniz ed section [...] Reason Comments Forms Reason Comments Nursing POC. [facility] Reason Comments Patient Update Reason Comments [facility] PT Plan of Care Reason Comments Home Health Point of Care Results Reason Comments [facility] Question Reason Comments home health calling Reason Comments Medicare Wellness Exam Care Teams (unrecognized sec tion and content) Guide Travel Relationship Specialty Start Date End Date Robert Mendoza MD [address] [place] [address] PCP - General Internal Medicine 06/21/21 Guide Travel Relationship Specialty Start Date End Date Robert Mendoza MD [address] [place] [address] PCP - General Internal Medicine 06/21/21 Guide Travel Relationship Specialty Start Date End Date Robert Mendoza MD [address] [place] [address] PCP - General Internal Medicine 06/21/21 Guide Travel Relationship Specialty Start Date End Date Robert Mendoza MD [address] [place] [address] PCP - General Internal Medicine 06/21/21 Guide Travel Relationship Specialty Start Date End Date Robert Mendoza MD [address] [place] [address] PCP - General Internal Medicine 06/21/21 Guide Travel Relationship Specialty Start Date End Date Robert Mendoza MD [address] [place] [address] PCP - General Internal Medicine 06/21/21 Guide Travel Relationship Specialty Start Date End Date Robert Mendoza MD [address] [facility] [place] [address] PCP - General Internal Medicine 06/21/21 Guide Travel Relationship Specialty Start Date End Date Robert Mendoza MD [address] [facility] [place] [address] PCP - General Internal Medicine 06/21/21 Guide Travel Relationship Specialty Start Date End Date Robert Mendoza MD [address] [facility] [place] [address] PCP - General Internal Medicine 06/21/21 Guide Travel Relationship Specialty Start Date End Date Robert Mendoza MD [address] [facility] [place] [address] PCP - General Internal Medicine 06/21/21 Guide Travel Relationship Specialty Start Date End Date Robert Mendoza MD [address] [facility] [place] [address] PCP - General Internal Medicine 06/21/21 Guide Travel Relationship Specialty Start Date End Date Robert Mendoza MD [address] [place] [address] PCP - General Internal Medicine 06/21/21 (unrecognized [...] BE BASED ON THE PRIMARY CLINICAL RECORDS. [facility]. provides no warranty or guarantee of the accuracy or completeness of information in this document.
--- NOTE | 2024-01-28 12:13 | CON.PCM.HO_ITS ---
Assessment & Plan Assessment/Plan (1) Pyelonephritis: (2) LUPE (acute kidney injury): PLAN: Plan Patient is a 68-year-old male who presented to [facility] on 01/28/2024 for a planned urology procedure. Postoperative course was complicated by concern for sepsis with septic shock. Medicine consulted postoperatively for medical management. 1. Acute pyelonephritis, sepsis ruled out ? Urology primary. S/p cystoscopy and left retrograde pyelogram on 01/27 with mild hydronephrosis noted as well as jose maria purulent urine noted in the left kidney. ? Noted to be hypotensive and hypoxic postoperatively, admitted to the ICU at that time. However, both blood pressure and oxygenation status improved quickly after his procedure so these are most likely secondary to anesthesia. Does have leukocytosis and mild LUPE as noted below, however does not meet sepsis criteria. ? Will start IV Zosyn for broad UTI coverage for now. Urine culture, blood cultures pending. Given about 1 L of LR postoperatively, no need for further IV fluids, encouraged patient to eat and drink. ? Will hold on throw out clerk consult for now as I suspect patient will be stable for transfer to the floor versus stable for discharge tomorrow. ? Further recommendations per urology. 2. Acute hypoxia, improving ? Required up to 15 L nonrebreather postoperatively. Quickly improved to 3 L nasal cannula, suspect hypoxia was largely secondary to intraoperative anesthesia. ? Chest x-ray showed known elevated left hemidiaphragm, mild patchy areas of atelectasis or scarring that are chronic, otherwise no acute findings. ? Wean supplemental oxygen as able. Incentive spirometry at bedside. 3. Suspected LUPE ? Creatinine 1.61 on 01/27, baseline creatinine appears to be around 0.8-1.0, though most recent labs on 01/05 and 01/16 showed creatinine values of 1.6-1.8. ? Highest concern would be for postobstructive LUPE in setting of pyelonephritis with hydronephrosis. Vo catheter in place postoperatively. Could also have some degree of ATN due to ongoing postobstructive etiology versus some degree of prerenal LUPE in setting of infection. ? FeNa labs ordered. Monitor daily BMP and urine output. 4. Paroxysmal A-fib, history of PE ? Home Eliquis held for 3 days preoperatively. Continue to hold Eliquis for now, will discuss with urology on timing of restarting this medication. Okay to resume home carvedilol. Chronic medical conditions: ? Obesity: BMI 31 on admit. Complicates hospital course, care and prognosis. ? Hypertension: Resume home carvedilol. Holding home lisinopril and Lasix for now given LUPE as noted above, restart when able. ? Multiple sclerosis: Continue home lisdexamfetamine, duloxetine, meclizine as needed. ? GERD: Continue home PPI. ? Hyperlipidemia: Continue home statin. ? BPH with obstructive symptoms: Continue home Flomax. ? JOSH: Continue home CPAP. DVT prophylaxis: SCDs CODE STATUS: Full code, verified Expected disposition: Home, 1 to 2 days Total clinical time spent by myself addressing the patient's medical issues, reviewing all the data, and collaborating with patient's care team: 50 minutes. HPI Consult Data Date of Consult: 01/28/24 HPI Narrative Reason for Consultation: Concern for sepsis post ureteral stent placement HPI Narrative: NERY MIDDLETON, is a 68 M who presented to [facility] on 01/27 for planned cystoscopy with left retrograde pyelogram and possible left ureteral stent placement for suspected kidney stone versus pyelonephritis. Patient had procedure done with Dr. Bernardo with Urology this morning. During the procedure, patient was noted to have a distended left kidney with hydronephrosis as well as jose maria purulent urine within left kidney. Given this finding, he considered instead proceeding with percutaneous nephrostomy tube placement but given the patient's age and frailty and high risk for sepsis after PERC neph tube placement, he instead proceeded with ureteral stent placement. Also placed Vo catheter to drain at that time. Postoperatively, patient was noted to be significantly hypotensive and there was concern for sepsis with septic shock. Patient was transported up to the ICU at that time. Medicine was then consulted for further medical management. I was notified by nursing staff that patient's blood pressure shortly after arriving to the ICU was in the 80s over 50s. However, his blood pressure quickly improved over a matter about half an hour without the need for any IV fluids. Patient was somewhat somnolent upon arriving to the ICU per nursing staff but his mentation quickly improved as the anesthesia from his procedure wore off. I saw the patient at bedside about 1 hour after he arrived up to the ICU. At that time, patient was sitting up comfortably in bed, conversing normally and in no acute distress. He was breathing comfortably and satting in the high 90s on 3 L nasal cannula. His blood pressure was in the 140s over 90s at that time. Patient denied any acute pain or discomfort at that time. He denied any lower back pain. Denied any significant discomfort with the Vo catheter. Denied any fevers or chills. Denied any chest pain, shortness of breath, abdominal pain or discomfort. Patient's primary concern was that he was hungry and wanted something to eat. No other acute concerns at that time. [facility] Medical History (Updated 01/28/24 @ 16:[address] Jsoe Sarmiento, DO) Abnormal EKG Atrial septal defect Bladder cancer Cancer Cardiology follow-up encounter Chronic anticoagulation COVID-19 CPAP (continuous positive airway pressure) dependence Depression Easy bruising Excessive bleeding Gastric reflux High cholesterol History of atrial fibrillation History of echocardiogram History of edema Hx of multiple sclerosis Hyperlipidemia Hypertension Kidney stones Multiple sclerosis Non-smoker Normal stress echocardiogram Obstructive sleep apnea On home oxygen therapy Paroxysmal atrial fibrillation Pulmonary embolism Recurrent UTI Sleep apnea Syncope due to orthostatic hypotension Uses wheelchair Wears glasses Home Medications ocrelizumab 30 mg/mL intravenous solution (Ocrevus) 600 mg IV .COMPLEX multiple sclerosis 11/04/17 [History Last Taken 10/03/23] cholecalciferol (vitamin D3) 25 mcg (1,000 unit) tablet 5,000 unit PO DAILY supplement 05/28/18 [History Last Taken 01/27/24] multivitamin with folic acid 400 mcg tablet 1 tab PO DAILY supplement 05/28/18 [History Last Taken 01/27/24] pantoprazole 40 mg tablet,delayed release 40 mg PO DAILY reflux 12/01/19 [History Last Taken 01/28/24] potassium citrate 15 mEq (1,620 mg) tablet,extended release 15 meq PO BID supplement ##60 02/04/20 [Rx Last Taken 01/27/24] albuterol sulfate 2.5 mg/3 mL (0.083 %) solution for nebulization 2.5 mg (3 mL) inhalation Q4H PRN shortness of breath or wheezing #180 vials 01/17/21 [Rx Last Taken 08/18/23] duloxetine 60 mg capsule,delayed release 60 mg PO QHS nerve 07/02/22 [History Last Taken 01/27/24] meclizine 25 mg tablet 25 mg PO DAILY PRN Dizziness 07/02/22 [History Last Taken 08/17/23] tamsulosin 0.4 mg capsule 0.4 mg PO DAILY prostate 07/02/22 [History Last Taken 01/27/24] apixaban 5 mg tablet 5 mg PO BID blood thinner #180 tabs 05/15/23 [Rx Last Taken 01/24/24] simvastatin 20 mg tablet 20 mg PO QHS cholesterol 07/02/23 [History Last Taken 01/27/24] lisdexamfetamine 50 mg capsule 50 mg PO DAILY MS 07/03/23 [History Last Taken 01/27/24] sodium bicarbonate 650 mg tablet 650 mg PO BID supplement 07/03/23 [History Last Taken 01/27/24] lisinopril 20 mg tablet 20 mg PO DAILY blood pressure 08/11/23 [History Last Taken 01/28/24] vitamin E 200 unit capsule 400 unit PO DAILY vitamin 08/18/23 [History Last Taken 01/27/24] sodium chloride 0.65 % nasal spray aerosol 2 spray NASAL TID PRN PRN NASAL DRYNESS #100 mL 08/26/23 [Rx Last Taken Unknown] tizanidine 4 mg tablet 4 mg PO PRN 09/23/23 [History Last Taken Unknown] carvedilol 12.5 mg tablet See Rx Instructions .Route .COMPLEX #180 tabs 11/18/23 [Rx Last Taken 01/28/24] furosemide 40 mg tablet (Lasix) 40 mg PO DAILY 01/07/24 [History Last Taken 01/27/24] sennosides 8.6 mg-docusate sodium 50 mg tablet (Stool Softener-Stimulant La xative) 2 tab PO PRN 01/20/24 [History Last Taken Unknown] amoxicillin 500 mg capsule 500 mg PO TID #15 caps 01/28/24 [Rx Last Taken Unknown] Allergy/AdvReac Type Severity Reaction Status Date / Time No Known Allergies Allergy Verified 01/28/24 06:36 Family History Father CAD (coronary artery disease) Hypertension Myocardial infarction Mother Hypertension Sister Multiple sclerosis Surgical History History of bladder surgery History of cystoscopy History of esophagogastroduodenoscopy (EGD) History of lithotripsy History of vasectomy S/P ureteral stent placement Social History household members: spouse and family Smoking Status: Never smoker alcohol intake: never substance use type: does not use caffeine: Yes (very little) ROS Constitutional Constitutional: Denies chills, fatigue, fever(s) or weakness Eyes Eyes: Denies change in vision Cardiovascular Cardiovascular: Denies chest pain, edema, lightheadedness, orthopnea, palpitations, rapid heart rate or syncope Respiratory/Chest Respiratory/Chest: Denies cough, shortness of breath at rest or wheezing Gastrointestinal Gastrointestinal: Denies abdominal pain Musculoskeletal Musculoskeletal: Denies arthralgias, back pain or myalgias Neurologic Neurologic: Denies dizziness, focal weakness or headache(s) Physical Exam Const alert, oriented x3 and no apparent distress Constitutional Narrative: Pleasant elderly male, obese, sitting up comfortably in bed, conversing normally, in no acute distress. General Appearance: cooperative and comfortable HEENT normocephalic, head/scalp atraumatic, hearing grossly normal bilaterally and nasal mucous membranes and turbinates normal Eyes PERRL, EOMs intact bilaterally and conjunctivae normal Neck full ROM Chest inspection of chest normal Resp normal respiratory effort and no use of accessory muscles Resp Narrative: Breathing comfortably on 3 L nasal cannula. Mildly decreased breath sounds throughout bilaterally, no wheezing or crackles noted. Cardio regular rate, regular rhythm, no murmurs and peripheral pulses 2+ throughout GI normal to inspection, nondistended, normoactive bowel sounds, soft to palpation, non-tender and non-distended Back/Spine normal ROM Extremity normal to inspection, full ROM and no pedal edema Skin no rashes or lesions noted Neuro moves all extremities and no focal motor deficits Speech: speech normal Psych mental status grossly normal Lab / Micro Data 01/28/24 12:50 01/28/24 12:50 Charges/Coding Visit Charges Inpatient E&M: 97850 Subs Hosp L3
--- NOTE | 2024-01-28 12:44 | RAD_ITS ---
STUDY: X-RAY CHEST REASON FOR EXAM: Male, 68 years old. HYPOXIA TECHNIQUE: Single AP portable view of the chest. COMPARISON: 08/18/2023. FINDINGS: Stable elevated left hemidiaphragm. Otherwise grossly normal lung volumes. Mild bilateral patchy pulmonary opacities which could be minimal atelectasis or areas of scarring, significantly improved since prior study especially on the left. No gross effusions. Normal size heart. Normal mediastinum and romi. Normal visualized pulmonary arteries. Normal visualized aortic arch and descending thoracic aorta. Normal visualized thoracic spine. Normal visualized ribs, clavicles, and shoulders. There is no demonstrated abnormality of the visualized soft tissue structures of the upper abdomen. RAD/Chest 1 View (Portable) IMPRESSION: Elevated left hemidiaphragm. Mild patchy areas of atelectasis or scarring. Electronically Signed: Jaxson Pisano MD at 16:14 EST ,
[2024-01-28 13:04] LABS: Absolute Lymphocyte Count 1.65 X10^3/uL (0.83-4.51); Absolute Neutrophil Count 14.3 X10^3/uL (2.0-7.7); Basophil# 0.09 X10^3/uL; Basophil% 0.5 % (0-1); Eosinophil# 0.21 X10^3/uL; Eosinophils% 1.2 % (0-5); Hematocrit 48.5 % (40-54); Hemoglobin 14.9 g/dL (13.0-16.5); Lymphocyte # 1.65 X10^3/ul (0.83-4.51); Lymphocyte % 9.4 % (19-41); Mean Corp Hgb Conc 30.7 g/dL (32-36); Mean Corpuscular Hgb 27.5 pg (27.0-32.0); Mean Corpuscular Volume 89.5 fL (80-94); Mean Platelet Vol. 9.3 fl (6.2-12.0); Monocyte# 1.23 X10^3/uL; NRBC Flagged by Analyzer 0 % (0-5); Neutrophil # 14.33 X10^3/uL (2.7-7.7); Neutrophil % 81.4 % (47-70); Platelet Count 236 K/mm3 (150-450); RBC Distribution Width CV 14.6 % (11.6-14.6); RBC Distribution Width SD 48.5 fl (35.1-43.9); Red Blood Count 5.42 M/mm3 (4.6-6.2); White Blood Count 17.6 K/mm3 (4.4-11.0)
[2024-01-28 13:17] LABS: ALB/GLOB Ratio 0.8 RATIO (0.9-2.4); AST(SGOT) 12 U/L (15-37); Alanine Aminotransfer ALT/SGPT 19 U/L (16-61); Albumin, Serum 3.1 g/dL (3.2-5.0); Alkaline Phosphatase 116 U/L (45-117); Anion Gap 6 (5-15); BUN 23 mg/dL (7-18); BUN/Creat Ratio 14.3 RATIO (10-20); Calcium,Total 9.4 mg/dL (8.5-10.1); Chloride 109 mmol/L (98-107); Creatinine, Serum 1.61 mg/dL (0.70-1.30); EST Glomerular Filtration Rate 46 mL/min (>60); Est Glom Filt Rate - Afr Amer 55 mL/min (>60); Estimated Creatinine Clearance 66.67 ml/min; Globulin 3.8 g/dL (2.2-4.2); Glucose 116 mg/dL (74-106); Potassium 3.8 mmol/L (3.5-5.1); Protein, Total 6.9 g/dL (6.4-8.2); Sodium Level 146 mmol/L (136-145)
[2024-01-28] MEDS: 0.9% Saline Lock 10 ML Syringe IV (13:55)
[2024-01-28] MEDS: Piperacil/Tazobactam 4.5 GM in 0.9% Normal Saline (100mL MB+) 100 ML IV (13:55)
[2024-01-28] MEDS: Acetaminophen 325 MG Tablet 650 MG PO (16:31)
[2024-01-28] MEDS: Meclizine HCl 25 MG Tablet PO (16:37)
[2024-01-28 18:05] LABS: Urine Sodium 45 mmol/L (Not Establ.)
[2024-01-28] MEDS: Atorvastatin Calcium 10 MG Tablet PO (21:21)
[2024-01-28] MEDS: DULoxetine Hcl 60 MG Capsule PO (21:21)
[2024-01-28] MEDS: Piperacil/Tazobactam 3.375 GM in 0.9% Normal Saline (50mL MB+) 50 ML IV (21:21)
[2024-01-28] MEDS: Ondansetron 4 MG/2 ML Vial IV (21:21)
--- NOTE | 2024-01-28 23:55 | PCM.HOSP.N ---
Hospitalist Note BP with decreased MAP, does have per chart orthostatic hypotension, will add midodrine and also given IVF bolus. Does have chronic BL LE edema/stasis, will also place MESSI wraps.
[2024-01-29] VITALS (26 sets, daily range): BP systolic 72–122; BP diastolic 50–71; PULSE 75–109; RESP 15–28; TEMP 36.8–37.5; O2SAT 90–98; BMI 35.1
[2024-01-29] MEDS: Midodrine HCl 5 MG Tablet 10 MG PO ×4 (03:33→17:45)
[2024-01-29] MEDS: 0.9% Normal Saline (1000mL) 1,000 ML 999 ML IV (03:33)
[2024-01-29 03:36] LABS: Hematocrit 42.8 % (40-54); Hemoglobin 13.5 g/dL (13.0-16.5); Mean Corp Hgb Conc 31.5 g/dL (32-36); Mean Corpuscular Hgb 27.7 pg (27.0-32.0); Mean Corpuscular Volume 87.9 fL (80-94); Mean Platelet Vol. 9.4 fl (6.2-12.0); Platelet Count 207 K/mm3 (150-450); RBC Distribution Width CV 14.9 % (11.6-14.6); RBC Distribution Width SD 48.1 fl (35.1-43.9); Red Blood Count 4.87 M/mm3 (4.6-6.2); White Blood Count 19.6 K/mm3 (4.4-11.0)
[2024-01-29 04:05] LABS: Anion Gap 6 (5-15); BUN 31 mg/dL (7-18); BUN/Creat Ratio 13.9 RATIO (10-20); Calcium,Total 8.8 mg/dL (8.5-10.1); Chloride 110 mmol/L (98-107); Creatinine, Serum 2.23 mg/dL (0.70-1.30); EST Glomerular Filtration Rate 31 mL/min (>60); Est Glom Filt Rate - Afr Amer 38 mL/min (>60); Estimated Creatinine Clearance 48.14 ml/min; Glucose 138 mg/dL (74-106); Potassium 3.6 mmol/L (3.5-5.1); Sodium Level 143 mmol/L (136-145)
[2024-01-29] MEDS: Piperacil/Tazobactam 3.375 GM in 0.9% Normal Saline (50mL MB+) 50 ML IV ×3 (05:59→20:17)
--- NOTE | 2024-01-29 06:39 | EX.PCM.CONCC ---
Assessment & Plan Assessment/Plan (1) Pyelonephritis: PLAN: Plan RECOMMENDATIONS: 1. Continue broad-spectrum antimicrobials, pending finalized culture results. 2. Continue midodrine as scheduled. 3. Low threshold to initiate vasopressor support, if hemodynamic status decompensates. 4. Hold Coreg for now. 5. Continue as needed bronchodilator therapy. 6. Nocturnal PAP therapy per home regimen. IMPRESSIONS: 1. Pyelonephritis status post cystoscopy with left stent placement Continue current supportive care including broad-spectrum antimicrobials, pending finalized culture results. Continue Vo catheter as ordered. Although blood pressures are somewhat borderline, vasopressors have never been required. As such, I agree with continuing scheduled midodrine for now. If the patient's hemodynamic status were to compromise any further, Levophed can be initiated. 2. Acute kidney injury Most likely prerenal in etiology and related to postoperative hypotension. Anticipate improvement in creatinine with stabilization of hemodynamic status. Continue to monitor urine output for now. There is no current indication for renal replacement therapy. 3. Paroxysmal atrial fibrillation/history of PE/history of multiple sclerosis/hypertension/hyperlipidemia/obstructive sleep apnea Complicates care, management, recovery and prognosis. Continue home medications as indicated. Resume nocturnal PAP therapy. This note was generated with [employer] dictation software. It may contain incorrect words, spelling, and punctuation that were not noted in checking the note before signing. HPI Consult Data Date of Consult: 01/30/24 HPI Narrative Reason for Consultation: Sepsis HPI Narrative: The patient is a 68-year-old male, with a history as outlined below, who presented to [facility] on January 27 to undergo a planned urology procedure, due to infected left kidney stones. The patient underwent successful cystoscopy with left retrograde pyelogram and left stent placement. During the procedure, the patient was noted to have hydronephrosis as well as purulent urine within the left kidney. Postoperatively, the patient was noted to be hypotensive with concern for evolving septic shock. Therefore, he was transferred to the medical intensive care unit. The patient has a known history of obstructive sleep apnea, multiple sclerosis, paroxysmal atrial fibrillation, prior pulmonary embolism, hypertension and hyperlipidemia. Initial volume resuscitation was undertaken. The patient does have low normal blood pressures at his baseline. Ultimately, the patient was initiated on midodrine overnight. Although the patient's blood pressures remain borderline, the patient is mentating appropriately and has never required the initiation of vasopressor support. He remains on Zosyn, pending finalized culture results. He denies any abdominal discomfort. White count remains elevated this morning at 20,000. Creatinine has increased to 2.23. [facility] Medical History (Updated 01/28/24 @ 16:[address] Jose Sarmiento, DO) Abnormal EKG Atrial septal defect Bladder cancer Cancer Cardiology follow-up encounter Chronic anticoagulation COVID-19 CPAP (continuous positive airway pressure) dependence Depression Easy bruising Excessive bleeding Gastric reflux High cholesterol History of atrial fibrillation History of echocardiogram History of edema Hx of multiple sclerosis Hyperlipidemia Hypertension Kidney stones Multiple sclerosis Non-smoker Normal stress echocardiogram Obstructive sleep apnea On home oxygen therapy Paroxysmal atrial fibrillation Pulmonary embolism Recurrent UTI Sleep apnea Syncope due to orthostatic hypotension Uses wheelchair Wears glasses Home Medications ocrelizumab 30 mg/mL intravenous solution (Ocrevus) 600 mg IV .COMPLEX multiple sclerosis 11/04/17 [History Last Taken 10/03/23] cholecalciferol (vitamin D3) 25 mcg (1,000 unit) tablet 5,000 unit PO DAILY supplement 05/28/18 [History Last Taken 01/27/24] multivitamin with folic acid 400 mcg tablet 1 tab PO DAILY supplement 05/28/18 [History Last Taken 01/27/24] pantoprazole 40 mg tablet,delayed release 40 mg PO DAILY reflux 12/01/19 [History Last Taken 01/28/24] potassium citrate 15 mEq (1,620 mg) tablet,extended release 15 meq PO BID supplement ##60 02/04/20 [Rx Last Taken 01/27/24] albuterol sulfate 2.5 mg/3 mL (0.083 %) solution for nebulization 2.5 mg (3 mL) inhalation Q4H PRN shortness of breath or wheezing #180 vials 01/17/21 [Rx Last Taken 08/18/23] duloxetine 60 mg capsule,delayed release 60 mg PO QHS nerve 07/02/22 [History Last Taken 01/27/24] meclizine 25 mg tablet 25 mg PO DAILY PRN Dizziness 07/02/22 [History Last Taken 08/17/23] tamsulosin 0.4 mg capsule 0.4 mg PO DAILY prostate 07/02/22 [History Last Taken 01/27/24] apixaban 5 mg tablet 5 mg PO BID blood thinner #180 tabs 05/15/23 [Rx Last Taken 01/24/24] simvastatin 20 mg tablet 20 mg PO QHS cholesterol 07/02/23 [History Last Taken 01/27/24] lisdexamfetamine 50 mg capsule 50 mg PO DAILY MS 07/03/23 [History Last Taken 01/27/24] sodium bicarbonate 650 mg tablet 650 mg PO BID supplement 07/03/23 [History Last Taken 01/27/24] lisinopril 20 mg tablet 20 mg PO DAILY blood pressure 08/11/23 [History Last Taken 01/28/24] vitamin E 200 unit capsule 400 unit PO DAILY vitamin 08/18/23 [History Last Taken 01/27/24] sodium chloride 0.65 % nasal spray aerosol 2 spray NASAL TID PRN PRN NASAL DRYNESS #100 mL 08/26/23 [Rx Last Taken Unknown] tizanidine 4 mg tablet 4 mg PO PRN 09/23/23 [History Last Taken Unknown] carvedilol 12.5 mg tablet See Rx Instructions .Route .COMPLEX #180 tabs 11/18/23 [Rx Last Taken 01/28/24] furosemide 40 mg tablet (Lasix) 40 mg PO DAILY 01/07/24 [History Last Taken 01/27/24] sennosides 8.6 mg-docusate sodium 50 mg tablet (Stool Softener-Stimulant Laxative) 2 tab PO PRN 01/20/24 [History Last Taken Unknown] amoxicillin 500 mg capsule 500 mg PO TID #15 caps 01/28/24 [Rx Last Taken Unknown] Allergy/AdvReac Type Severity Reaction Status Date / Time No Known Allergies Allergy Verified 01/28/24 06:36 Family History Father CAD (coronary artery disease) Hypertension Myocardial infarction Mother Hypertension Sister Multiple sclerosis Surgical History History of bladder surgery History of cystoscopy History of esophagogastroduodenoscopy (EGD) History of lithotripsy History of vasectomy S/P ureteral stent placement Social History household members: spouse and family Smoking Status: Never smoker alcohol intake: never substance use type: does not use caffeine: Yes (very little) ROS ROS Narrative 10 systems were reviewed with pertinent positives as noted in the HPI above. Physical Exam Const alert and no apparent distress General Appearance: cooperative HEENT normocephalic and head/scalp atraumatic Eyes PERRL, EOMs intact bilaterally and conjunctivae normal Neck supple General: trachea midline Chest inspection of chest normal Resp normal respiratory effort Auscultation: Negative for rales, rhonchi or wheezes Cardio regular rate and regular rhythm GI normal to inspection, nondistended, normoactive bowel sounds Extremity General Extremity: edema bilateral lower extremity; Negative for clubbing Skin no rashes or lesions noted Neuro oriented x3 and CN's II-XII intact bilaterally Psych cooperative and affect normal Lab / Micro Data 01/30/24 04:15 01/30/24 04:15 Labs: Laboratory Results - last 24 hr 01/28/24 12:50: WBC 17.6 H, RBC 5.42, Hgb 14.9, Hct 48.5, MCV 89.5, MCH 27.5, MCHC 30.7 L, RDW Std Deviation 48.5 H, RDW Coeff of Bravo 14.6, Plt Count 236, MPV 9.3, Immature Gran % (Auto) 0.500, Neut % (Auto) 81.4 H, Lymph % (Auto) 9.4 L, Loup % (Auto) 7.0, Eos % (Auto) 1.2, Baso % (Auto) 0.5, Absolute Neuts (auto) 14.3 H, Absolute Lymphs (auto) 1.65, Nucleated RBC % 0, Sodium 146 H, Potassium 3.8, Chloride 109 H, Carbon Dioxide 31.0, Anion Gap 6, BUN 23 H, Creatinine 1.61 H, Estim Creat Clear Calc 66.67, Est GFR (MDRD) Af Amer 55 L, Est GFR (MDRD) Non-Af 46 L, BUN/Creatinine Ratio 14.3, Glucose 116 H, Calcium 9.4, Total Bilirubin 0.50, AST 12 L, ALT 19, Alkaline Phosphatase 116, Total Protein 6.9, Albumin 3.1 L, Globulin 3.8, Albumin/Globulin Ratio 0.8 L 01/28/24 17:46: Ur Random Sodium 45, Urine Creatinine 76.80 01/29/24 03:30: WBC 19.6 H, RBC 4.87, Hgb 13.5, Hct 42.8, MCV 87.9, MCH 27.7, MCHC 31.5 L, RDW Std Deviation 48.1 H, RDW Coeff of Bravo 14.9 H, Plt Count 207, MPV 9.4, Sodium 143, Potassium 3.6, Chloride 110 H, Carbon Dioxide 27.0, Anion Gap 6, BUN 31 H, Creatinine 2.23 H, Estim Creat Clear Calc 48.14, Est GFR (MDRD) Af Amer 38 L, Est GFR (MDRD) Non-Af 31 L, BUN/Creatinine Ratio 13.9, Glucose 138 H, Calcium 8.8 Imaging Radiology Impression Chest X-Ray 01/28/24 12:44 IMPRESSION: Elevated left hemidiaphragm. Mild patchy areas of atelectasis or scarring. Electronically Signed: Jaxson Pisano MD at 16:14 EST , Charges/Coding Visit Charges Inpatient E&M: 96323 Init Hosp L3
[2024-01-29] MEDS: Albuterol 2.5 MG/3 ML VIAL.NEB. INHALATION (07:04)
--- NOTE | 2024-01-29 07:18 | PCM.PN.GU ---
Subjective Subjective Status post cystoscopy and right stent placement we are planning to do a percutaneous removal of infected stone in the left kidney however when we placed a stent he had a lot of pus in the kidney so the procedure was aborted despite only placing the stent the patient did have severe hypotension after surgery. Was admitted to the intensive care unit looks like he is more stable now. He can be transferred to floor once he is deemed safe probably discharge in a day or 2. Objective Data Objective Data Vital Signs: Vital Signs Temp Pulse Resp BP Pulse Ox O2 Del Method O2 Flow Rate 99 F 90 18 88/52 L 90 Nasal Cannula 2 01/29/24 04:00 01/29/24 07:00 01/29/24 07:00 01/29/24 07:00 01/29/24 07:00 01/29/24 07:00 01/29/24 07:00 Oxygen Flow Rate (L/min) 2 Oxygen Delivery Method Nasal Cannula Weight: 137.7 kg Body Mass Index (BMI) 35.1 Intake & Output: Intake and Output for Last 24 Hours 01/27/24 01/28/24 01/29/24 23:59 23:59 23:59 Intake Total 2632.5 / 2632.5 1050 / 1050 Output Total 950 / 950 250 / 250 Balance 1682.5 / 1682.5 800 / 800 Lab / Micro Data 01/29/24 03:30 01/29/24 03:30 Labs: Laboratory Results - last 24 hr 01/28/24 12:50: WBC 17.6 H, RBC 5.42, Hgb 14.9, Hct 48.5, MCV 89.5, MCH 27.5, MCHC 30.7 L, RDW Std Deviation 48.5 H, RDW Coeff of Bravo 14.6, Plt Count 236, MPV 9.3, Immature Gran % (Auto) 0.500, Neut % (Auto) 81.4 H, Lymph % (Auto) 9.4 L, Beaver % (Auto) 7.0, Eos % (Auto) 1.2, Baso % (Auto) 0.5, Absolute Neuts (auto) 14.3 H, Absolute Lymphs (auto) 1.65, Nucleated RBC % 0, Sodium 146 H, Potassium 3.8, Chloride 109 H, Carbon Dioxide 31.0, Anion Gap 6, BUN 23 H, Creatinine 1.61 H, Estim Creat Clear Calc 66.67, Est GFR (MDRD) Af Amer 55 L, Est GFR (MDRD) Non-Af 46 L, BUN/Creatinine Ratio 14.3, Glucose 116 H, Calcium 9.4, Total Bilirubin 0.50, AST 12 L, ALT 19, Alkaline Phosphatase 116, Total Protein 6.9, Albumin 3.1 L, Globulin 3.8, Albumin/Globulin Ratio 0.8 L 01/28/24 17:46: Ur Random Sodium 45, Urine Creatinine 76.80 01/29/24 03:30: WBC 19.6 H, RBC 4.87, Hgb 13.5, Hct 42.8, MCV 87.9, MCH 27.7, MCHC 31.5 L, RDW Std Deviation 48.1 H, RDW Coeff of Bravo 14.9 H, Plt Count 207, MPV 9.4, Sodium 143, Potassium 3.6, Chloride 110 H, Carbon Dioxide 27.0, Anion Gap 6, BUN 31 H, Creatinine 2.23 H, Estim Creat Clear Calc 48.14, Est GFR (MDRD) Af Amer 38 L, Est GFR (MDRD) Non-Af 31 L, BUN/Creatinine Ratio 13.9, Glucose 138 H, Calcium 8.8 Radiography Diagnostic Testing: Radiology Impression Chest X-Ray 01/28/24 12:44 IMPRESSION: Elevated left hemidiaphragm. Mild patchy areas of atelectasis or scarring. Electronically Signed: Jaxson Pisano MD at 16:14 EST ,
[2024-01-29] MEDS: Tamsulosin HCl 0.4 MG Capsule 0.400000000000000022 MG PO (08:26)
[2024-01-29] MEDS: Vancomycin HCl 2,000 MG in 0.9% Normal Saline (500mL Bag) 500 ML 250 MG IV (08:27)
[2024-01-29] MEDS: Pantoprazole Sodium 40 MG Tablet PO (08:27)
[2024-01-29] MEDS: 0.9% Normal Saline (250mL Bag) 250 ML 15 ML IV (08:28)
[2024-01-29] MEDS: 0.9% Saline Lock 10 ML Syringe IV ×3 (08:28→17:45)
--- NOTE | 2024-01-29 09:45 | CASEMGMT ---
Addendum entered by Loyd Burroughs 01/29/24 10:45: Ileana from [employer] states the pt current home O2 order states 2 LPM with exertion and 2 LPM bleed in to PAP Original Note: ELIZABETH PINEDA Assessment Face to Face with patient for initial transition planning/care coordination assessment. ELIZABETH PINEDA introduced self and role at [facility], pt voices understanding. Pt is A&Ox4 and is resting comfortably in bed and is calm. Pt at bedside. Care providers, pharmacy, and demographics verified. Admitting dx: Percutaneous Nephrostolithotomy LACE Strata: 2 PCP: Alvaro Specialists: Az Ni Rehan, Dr. Mathew Roy (Neuro in [place]) Preferred Pharmacy: [facility] Insurance: [employer] Prescription Benefit: Yes LNOK: Mirella Barney (W), Isabelle May (ARNOLD) Living Arrangements: Pt lives with his in a single story home with a BM with HR with a ramp to enter. Pt is non-ambulatory and utilizes a Belle lift at home. ADLs/IADLs: Pt is dependent on his for ADLs Transportation: Pt drives. The pt and pt have a medical van with a mechanical lift to support the pt needs. DME: Pt states that he wears additional oxygen at home at times supplied through [employer]. Pt states that he has not needed to use the oxygen as much recently. Email sent to Ileana from [employer] to verify the pt current home o2 order. Dr. Sarmiento states that we will wait and see how the pt does before signing an updated Rx. Pt states that he has a concentrator, Pulse Ox, and portable tanks. Pt states that she can bring in a tank from home at time of DC. Pt states that he wears a BiPAP at night. Pt and pt also report that the pt has a Belle lift, Medical van with lift access, handicap shower, hospital bed, and a customized electronic WC. HHC/SNF: TCU x6 years ago for a blood clot. History with [facility]. 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 Pt?s goal: Home with [facility] Plan: Pt and pt both state that they feel safe and comfortable with the pt discharging home. Pt states that he is interested in HHC. Pt denies wanting to see a list of local in-network HH agencies and the pt states that he wants to go through [facility] HHC again at time of DC. CM to follow for safe DC. Demetris Burroughs RN CM
--- NOTE | 2024-01-29 10:44 | PCM.RX.CS ---
Consult Antibiotic Management Pharmacy has been consulted to manage selected antibiotic: Vancomycin Type of Intervention Type of Consult: New start Suspected Infection Suspected Infection: Sepsis Prior Doses of Antibiotics Prior Doses of Antibiotics Received/Current Regimen: Received 2000mg iv x 1 as loading dose [id number]. Labs Labs: Sodium 143 mmol/L (136-145) 01/29/24 03:30 Potassium 3.6 mmol/L (3.5-5.1) 01/29/24 03:30 Chloride 110 mmol/L (98-107) H 01/29/24 03:30 Carbon Dioxide 27.0 mmol/L (21.0-32.0) 01/29/24 03:30 Anion Gap 6 (5-15) 01/29/24 03:30 BUN 31 mg/dL (7-18) H 01/29/24 03:30 Creatinine 2.23 mg/dL (0.70-1.30) H 01/29/24 03:30 Est GFR (MDRD) Af Amer 38 mL/min (>60) L 01/29/24 03:30 Est GFR (MDRD) Non-Af 31 mL/min (>60) L 01/29/24 03:30 BUN/Creatinine Ratio 13.9 RATIO (10-20) 01/29/24 03:30 Glucose 138 mg/dL (74-106) H 01/29/24 03:30 Dosing Weight Weight used for dosin.7 kg Estimated Creatinine Clearance Estimated Creatinine Clearance: 51ml/min Goal Trough Goal Trough: 15-20 mcg/mL Pharmacy Plan for Drug Dosing Pharmacy Plan for Drug Dosing: Recommend dosing of 1250mg iv q12h with trough before 4th total dose on 01.30.24. Pharmacy Service will continue to monitor and adjust dosing as required. Follow-Up Labs Follow-Up Labs: Trough: Vancomycin (01.30.24 @1930)
[2024-01-29] MEDS: Lactated Ringers 1,000 ML 500 ML IV ×2 (12:15→14:15)
[2024-01-29] MEDS: LISDEXAMFETAMINE DIMESYLATE 50 MG CAPSULE PO (12:18)
[2024-01-29] MEDS: 0.9 % NaCl (Sterile) Posiflush 10 mL IV (12:18)
--- NOTE | 2024-01-29 13:18 | CASEMGMT ---
Social Work As per RN, pt's asked about pt going to TCU from here. SW met w/pt and in room, daughter also present. SW spoke w/them about discharge plan. states she normally cares for pt but he is much weaker than his usual self. She states she can help him but she needs him to be able to help somewhat as well. She states she wants to see if TCU would be able to take him, pt in agreement w/this. SW offered to give them a list of alf facilities from [facility] of facilities in network w/pt's insurance, in their preferred geographic area and complete w/quality and resource use data. She states she does not want pt going anywhere but TCU, so declined a list. SW did also explain that insurance would need to approve if TCU can take pt, pt and family state understanding. SW did call TCU, referral made. However, pt has not yet had PT/OT so will need to follow up w/referral to TCU once pt has participated in therapy and is closer to discharge. SW will continue to follow. CRISTAL Almgauer
--- NOTE | 2024-01-29 14:34 | PCM.OP.PRO ---
Procedure Report Date of Procedure: 01/29/24 Assessment & Plan Assessment/Plan (1) Pyelonephritis: Procedure Time Out Time Out Informed consent given: Yes Consent signed: Yes Time out checklist: patient, procedure, site marked/identified, positioning of patient, supplies available and allergies confirmed Time out verified: Yes Time out date: 01/29/24 Time out time: 11:02 PICC Line Insertion Reason for Insertion: Poor Venous Access Date of Insertion: 01/29/24 Ok to use: Yes Type of PICC inserted: Dual Power PICC PICC Lot #: [id number] PICC Reference #: [id number] Microintroducer Used: Yes (in kit) Ultrasound/Equipment Used: Probe Cover Kit Trimmed Length (cm): 54 Insertion Length (cm): 54 Exposed Length (cm): 0 Tip Placement: Caval Atrial Junction Placement Confirmation: 3CG Insertion Vein: Left Basilic Insertion Attempts: 1 Local Anesthesia Used: Lidocaine 1% (in kit) Dressing Applied: Statlock and Tegaderm CHG Arm Measurement above site (in cm): 39 Patient Tolerated Procedure: Well Threading Difficulties: No Comments Comment: Patient identity was verified with two patient identifiers. Informed consent was obtained and time-out was completed. Hands were sanitized. The patient was positioned supine with left arm at 90 degrees. The patient's upper arm vasculature was assessed using ultrasound. Patency of the left basilic vein was confirmed and the vein was externally marked. An external measurement was obtained of 54 cm. External leads were applied to the patient's right upper chest and laterally and inferior of the umbilicus on the mid axillary line. Cap, mask, and prep gloves were donned. The underdrape was placed under the patient's arm. The site was prepped with chlorhexidine, and tourniquet was loosely applied. Prep gloves were discarded, and hands were sanitized. The sterile kit was opened with additional supplies dropped in. Sterile gown and gloves were donned, and the patient was draped. The sterile kit was assembled with needle, introducer, needless connectors, and each catheter lumen flushed with sterile normal saline. The marked site of insertion was anesthetized with 1% lidocaine from the kit. Patient tolerated well. The left basilic vein was then accessed using ultrasound guidance and guidewire was inserted to safety radha. The tourniquet was released. The access needle was removed while securing the guidewire in place. The site was again anesthetized with 1% lidocaine, prior to insertion of introducer sheath and dilator. Patient tolerated the insertion well. The catheter was trimmed to a length of 54 cm. Using 3C guidance, the catheter was then inserted through the introducer sheath, slowly. There was no resistance on insertion. The catheter followed the expected course of the vessel using 3CG tracking. The introducer sheath was retracted and peeled away, incrementally, while keeping the catheter secured. Maximal p-wave, without deflection, confirming placement in the cavoatrial junction, was obtained at an insertion length of 54 cm, leaving 0 cm external. The stylet was removed. A flushed needleless connector was attached to the lumen. Aspiration of the lumen was performed to remove any air and confirm blood return. Blood return was verified and each lumen was flushed with 10 ml of sterile normal saline in a pulsatile fashion. The each lumen was clamped with the last pulsed flush. Total sterile flushes used for the insertion was 8 10 ml syringes, 2 from the kit. Finally, the insertion site was cleaned with chlorhexidine, and the catheter was secured using a StatLock. The site was covered with a Tegaderm CHG Dressing and disinfecting caps were applied. Baseline arm circumference was obtained at the insertion site and measured 39 cm. The patient was provided with a patient education handout on PICC line care and verbalized understanding of infection prevention, heavy lifting restriction, maintaining mobility, and watching for any signs of infection. Primary nurse is aware that the PICC line is ready for use.
--- NOTE | 2024-01-29 14:57 | PN.HOSP_ITS ---
Reason for Visit Reason for Visit: Diagnoses Tubulo-interstitial nephritis, not specified as acute or chronic (01/28/24) Acute kidney failure, unspecified (01/28/24) Subjective Subjective Yesterday evening patient was noted to spike a fever to 102F and his blood pressure started to fall. Overnight he was given 1 L of normal saline with mild improvement of the blood pressure. He was also started on midodrine 10 mg 3 times daily. Saw patient at bedside this morning. Patient was laying back comfortably in bed, in no acute distress. However, patient appears fatigued and states that he generally feels very sick. He reports ongoing fevers and chills with nausea and bodyaches. Patient states he has had MS for about 30 years and states this is the sickest he has ever felt. He denies any overt pain or discomfort. Has been tolerating the catheter without issue. Has not eaten or drank anything at this morning. No other acute concerns this time. Objective Data Objective Data Vital Signs: Vital Signs Temp Pulse Resp BP Pulse Ox O2 Del Method O2 Flow Rate 99.2 F H 85 15 84/68 L 91 Nasal Cannula 2 01/29/24 08:00 01/29/24 11:00 01/29/24 11:00 01/29/24 11:00 01/29/24 11:00 01/29/24 11:00 01/29/24 11:00 Oxygen Flow Rate (L/min) 2 Oxygen Delivery Method Nasal Cannula Weight: 137.7 kg Body Mass Index (BMI) 35.1 Intake & Output: Intake and Output for Last 24 Hours 01/27/24 01/28/24 01/29/24 23:59 23:59 23:59 Intake Total 2632.5 / 2632.5 2640 / 2640 Output Total 950 / 950 375 / 375 Balance 1682.5 / 1682.5 2265 / 2265 Lab / Micro Data 01/29/24 03:30 01/29/24 03:30 Labs: Laboratory Results - last 24 hr 01/28/24 17:46: Ur Random Sodium 45, Urine Creatinine 76.80 01/29/24 03:30: WBC 19.6 H, RBC 4.87, Hgb 13.5, Hct 42.8, MCV 87.9, MCH 27.7, MCHC 31.5 L, RDW Std Deviation 48.1 H, RDW Coeff of Bravo 14.9 H, Plt Count 207, MPV 9.4, Sodium 143, Potassium 3.6, Chloride 110 H, Carbon Dioxide 27.0, Anion Gap 6, BUN 31 H, Creatinine 2.23 H, Estim Creat Clear Calc 48.14, Est GFR (MDRD) Af Amer 38 L, Est GFR (MDRD) Non-Af 31 L, BUN/Creatinine Ratio 13.9, Glucose 138 H, Calcium 8.8 Micro: Microbiology 01/28/24 12:50 Blood Culture (Wb) - Pic Blood Culture - Preliminary 01/28/24 07:59 Urine, Cystoscopy Urine Culture - Preliminary Gram positive organism Radiography Diagnostic Testing: Radiology Impression Chest X-Ray 01/28/24 12:44 IMPRESSION: Elevated left hemidiaphragm. Mild patchy areas of atelectasis or scarring. Electronically Signed: Jaxson Pisano MD at 16:14 EST , Physical Exam Const alert, oriented x3 and no apparent distress Constitutional Narrative: Pleasant elderly male, obese, appears much more fatigued than yesterday, somewhat pale appearing, otherwise laying comfortably in bed, conversing normally and in no acute distress. General Appearance: cooperative and comfortable HEENT normocephalic, head/scalp atraumatic, hearing grossly normal bilaterally and nasal mucous membranes and turbinates normal HEENT Narrative: Dry mucous membranes. Eyes PERRL, EOMs intact bilaterally and conjunctivae normal Neck full ROM Chest inspection of chest normal Resp normal respiratory effort and no use of accessory muscles Resp Narrative: Breathing comfortably on 2 L nasal cannula. Mildly decreased breath sounds throughout bilaterally, no wheezing or crackles noted. Cardio regular rate, regular rhythm, no murmurs and peripheral pulses 2+ throughout GI normal to inspection, nondistended, normoactive bowel sounds, soft to palpation, non-tender and non-distended Back/Spine normal ROM Extremity normal to inspection, full ROM and no pedal edema Skin no rashes or lesions noted Neuro moves all extremities and no focal motor deficits Speech: speech normal Psych mental status grossly normal Assessment & Plan Assessment/Plan (1) Pyelonephritis: (2) LUPE (acute kidney injury): PLAN: Plan Patient is a 68-year-old male who presented to [facility] on 01/28/2024 for a planned urology procedure. Postoperative course was complicated by concern for sepsis with septic shock. Medicine consulted postoperatively for medical management. 1. Sepsis without septic shock secondary to acute pyelonephritis ? Urology primary. S/p cystoscopy and left retrograde pyelogram on 01/27 with mild hydronephrosis noted as well as jose maria purulent urine noted in the left kidney. ? Was noted to be hypotensive and hypoxic postoperatively and admitted to the ICU at that time. His blood pressure and oxygenation status improved quickly after the procedure, so it was felt that these may be secondary to anesthesia. Had leukocytosis and mild LUPE but otherwise did not meet sepsis criteria at that time. ? However, overnight 01/27 into 01/28 patient became febrile and had significant drop in his blood pressure with tachycardia. He was given 1 L normal saline with mild improvement. Notably, patient was put on LR 75 cc/h for 4 to 5 hours after his procedure, was not given a fluid bolus because of lower concern for sepsis and concern for acute hypoxia at that time. ? Patient now meets criteria for sepsis on 01/28 given his acutely worsened hypotension with new onset tachycardia, mildly worsening leukocytosis, ongoing fevers, worsening LUPE and presumed urinary source of infection. ? Will give 2 L LR bolus over 4 hours this afternoon. Patient's full 30 cc/kg would be approximately 4 L but he is obese, and with this bolus he will have gotten about 3.5 L which should be adequate fluid resuscitation. ? Construction Site Crossing Guard following. Continue IV Zosyn for broad UTI coverage. Urine culture, blood cultures pending. Continue midodrine 10 mg 3 times daily. Continue monitoring in the ICU, can add low-dose Levophed as needed. Appreciate further recommendations from urology. 2. Acute hypoxia, improved ? Required up to 15 L nonrebreather postoperatively. Quickly improved to 3 L nasal cannula, suspect hypoxia was largely secondary to intraoperative anesthesia. ? Chest x-ray showed known elevated left hemidiaphragm, mild patchy areas of atelectasis or scarring that are chronic, otherwise no acute findings. ? Patient on 2 L nasal cannula with good oxygen saturations, using more so for comfort at this time. Continue to monitor. Status primary bedside. 3. LUPE ? Creatinine 1.61 on 01/27, baseline creatinine appears to be around 0.8-1.0, though most recent labs on 01/05 and 01/16 showed creatinine values of 1.6-1.8. ? Creatinine worsened to 2.23 on 01/28. FeNa 0.7% consistent with prerenal etiology. ? Given more IV fluids for sepsis bolus as noted above. Continue to monitor daily BMP and urine output. 4. Paroxysmal A-fib, history of PE ? Home Eliquis held for 3 days preoperatively. Eliquis restarted on 01/28. Holding home metoprolol given sepsis as noted above. Chronic medical conditions: ? Obesity: BMI 31 on admit. Complicates hospital course, care and prognosis. ? Hypertension: Resume home carvedilol. Holding home lisinopril and Lasix for now given LUPE as noted above, restart when able. ? Multiple sclerosis: Continue home lisdexamfetamine, duloxetine, meclizine as needed. ? GERD: Continue home PPI. ? Hyperlipidemia: Continue home statin. ? BPH with obstructive symptoms: Continue home Flomax. ? JOSH: Continue home CPAP. DVT prophylaxis: Eliquis CODE STATUS: Full code, verified Expected disposition: TBD Total clinical time spent by myself addressing the patient's medical issues, reviewing all the data, and collaborating with patient's care team: 35 minutes. Charges/Coding Visit Charges Inpatient E&M: 69507 Subs Hosp L2
--- NOTE | 2024-01-29 15:07 | CHAPLAIN ---
Type of Pastoral Visit _x__ Initial Visit ___ Follow-up Visit ___ On-call Visit ___ General Patient Visit ___ Spiritual Assessment ___ Family Conference ___ Bereavement ___ Rapid Response ___ Code Blue ___ Other (describe below) Pastoral Care Referral From _x__ Patient _x__ Family ___ Nurse ___ Physician ___ Pruner ___ Hotel Director ___ Other (describe below) Sacrament/Intervention _x__ Active listening ___ Anointing ___ Roman Catholic ___ Bereavement ___ Communion ___ Terri exploration ___ _x__ Life review _x__ Prayer ___ Reconciliation ___ Sacrament of Sick _x__ Supportive presence ___ Wedding ___ Other (describe below) Pastoral Comments patient saw this career services director coming down the hallway and welcomed the same into room; is in the room and later a daughter joins them; pt is admitting to discomfort and disappointment at these things happening more and more frequently now, after 30 years of having MS ; pt is asked about how he is handling his situation and what needs he has at this time; pt is a person of terri and conversation is directed to the present help of God in our trying times; is involved in the conversation too; pt states his concern for his who handles so much for him; pt welcomes presence and prayer but visit is kept brief so pt can rest
[2024-01-29] MEDS: Ensure Plus High Protein 120 ML LIQUID PO (17:45)
[2024-01-29] MEDS: DULoxetine Hcl 60 MG Capsule PO (20:16)
[2024-01-29] MEDS: Atorvastatin Calcium 10 MG Tablet PO (20:16)
[2024-01-29] MEDS: Vancomycin HCl 1,250 MG in 0.9% Normal Saline (250mL Bag) 250 ML 167 MG IV (20:17)
[2024-01-29] MEDS: MELATONIN 3 MG TABLET PO (20:17)
[2024-01-29] MEDS: Acetaminophen 325 MG Tablet 650 MG PO (20:17)
[2024-01-29] MEDS: APIXABAN 5 MG TABLET PO (20:17)
--- NOTE | 2024-01-29 21:54 | CPS ---
set up pt own cpap with 3 l/m o2 bleed -added distilled water
[2024-01-30] VITALS (24 sets, daily range): BP systolic 78–131; BP diastolic 53–79; PULSE 70–88; RESP 10–22; TEMP 36.2–37.7; O2SAT 90–96; BMI 35.2
[2024-01-30 04:22] LABS: Hematocrit 38.1 % (40-54); Hemoglobin 11.7 g/dL (13.0-16.5); Mean Corp Hgb Conc 30.7 g/dL (32-36); Mean Corpuscular Hgb 27.7 pg (27.0-32.0); Mean Corpuscular Volume 90.1 fL (80-94); Mean Platelet Vol. 9.4 fl (6.2-12.0); Platelet Count 158 K/mm3 (150-450); RBC Distribution Width CV 15.1 % (11.6-14.6); RBC Distribution Width SD 49.5 fl (35.1-43.9); Red Blood Count 4.23 M/mm3 (4.6-6.2); White Blood Count 11.9 K/mm3 (4.4-11.0)
[2024-01-30 04:38] LABS: Anion Gap 4 (5-15); BUN 35 mg/dL (7-18); BUN/Creat Ratio 17.3 RATIO (10-20); Calcium,Total 8.6 mg/dL (8.5-10.1); Chloride 110 mmol/L (98-107); Creatinine, Serum 2.02 mg/dL (0.70-1.30); EST Glomerular Filtration Rate 35 mL/min (>60); Est Glom Filt Rate - Afr Amer 43 mL/min (>60); Estimated Creatinine Clearance 55.93 ml/min; Glucose 110 mg/dL (74-106); Potassium 3.4 mmol/L (3.5-5.1); Sodium Level 143 mmol/L (136-145)
[2024-01-30] MEDS: Piperacil/Tazobactam 3.375 GM in 0.9% Normal Saline (50mL MB+) 50 ML IV ×3 (05:19→20:24)
--- NOTE | 2024-01-30 06:57 | PN.CC_ITS ---
Assessment & Plan Assessment/Plan (1) Pyelonephritis: PLAN: Plan RECOMMENDATIONS: 1. Continue broad-spectrum antimicrobials, pending finalized culture results. 2. Continue midodrine as scheduled. 3. Continue as needed bronchodilator therapy. 4. Nocturnal PAP therapy per home regimen. 5. Continue Eliquis per home regimen. IMPRESSIONS: 1. Pyelonephritis status post cystoscopy with left stent placement Continue current supportive care including broad-spectrum antimicrobials, pending finalized culture results. Continue Vo catheter as ordered. Although blood pressures are somewhat borderline, vasopressors have never been required. As such, I agree with continuing scheduled midodrine for now. Antibiotics can be de-escalated once cultures have finalized. 2. Acute kidney injury Most likely prerenal in etiology and related to postoperative hypotension. Anticipate improvement in creatinine with stabilization of hemodynamic status. Continue to monitor urine output for now. There is no current indication for renal replacement therapy. 3. Paroxysmal atrial fibrillation/history of PE/history of multiple sclerosis/hypertension/hyperlipidemia/obstructive sleep apnea Complicates care, management, recovery and prognosis. Continue home medications as indicated. Continue nocturnal PAP therapy. This note was generated with [employer] dictation software. It may contain incorrect words, spelling, and punctuation that were not noted in checking the note before signing. Subjective Subjective The patient was seen and examined at the bedside this morning. Events from the last 24 hours have been reviewed. The patient is currently afebrile, hemodynamically stable and maintaining appropriate oxygen saturations on 2 L/min via nasal cannula. The patient did receive additional supplemental IV fluid hydration yesterday. He never required vasopressor support. He is currently documented to be overall net +4.9 L for the hospitalization. White count has decreased to 12,000. Creatinine has improved to 2.02. The patient does report feeling better than yesterday. Objective Data Objective Data The patient's most recent lab work, culture data and imaging studies have all been personally reviewed. Vital Signs: Vital Signs Temp Pulse Resp BP Pulse Ox O2 Del Method O2 Flow Rate 99.8 F H 78 17 93/57 L 94 CPAP 2 01/30/24 04:00 01/30/24 06:00 01/30/24 06:00 01/30/24 06:00 01/30/24 06:00 01/30/24 06:00 03/08/24 06:00 Oxygen Flow Rate (L/min) 2 Oxygen Delivery Method CPAP Weight: 304 lb 14.389 oz Body Mass Index (BMI) 35.2 Intake & Output: Intake and Output for Last 24 Hours 01/28/24 01/29/24 01/30/24 23:59 23:59 23:59 Intake Total 2632.5 / 2632.5 4205 / 4405 500 / 500 Output Total 950 / 950 625 / 1175 850 / 850 Balance 1682.5 / 1682.5 3580 / 3230 -350 / -350 Lab / Micro Data Attestation: I reviewed the patient's lab results. 01/30/24 04:15 01/30/24 04:15 Labs: Laboratory Results - last 24 hr 01/30/24 04:15: WBC 11.9 H, RBC 4.23 L, Hgb 11.7 L, Hct 38.1 L, MCV 90.1, MCH 27.7, MCHC 30.7 L, RDW Std Deviation 49.5 H, RDW Coeff of Bravo 15.1 H, Plt Count 158, MPV 9.4, Sodium 143, Potassium 3.4 L, Chloride 110 H, Carbon Dioxide 29.0, Anion Gap 4 L, BUN 35 H, Creatinine 2.02 H, Estim Creat Clear Calc 55.93, Est GFR (MDRD) Af Amer 43 L, Est GFR (MDRD) Non-Af 35 L, BUN/Creatinine Ratio 17.3, Glucose 110 H, Calcium 8.6 Micro: Microbiology 01/28/24 12:50 Blood Culture (Wb) - Pic Blood Culture - Preliminary 01/28/24 07:59 Urine, Cystoscopy Urine Culture - Preliminary Gram positive organism Physical Exam Const alert and no apparent distress General Appearance: cooperative HEENT normocephalic and head/scalp atraumatic Eyes PERRL, EOMs intact bilaterally and conjunctivae normal Neck supple General: trachea midline Chest inspection of chest normal Resp normal respiratory effort Auscultation: Negative for rales, rhonchi or wheezes Cardio regular rate and regular rhythm GI normal to inspection, nondistended, normoactive bowel sounds Extremity General Extremity: edema bilateral lower extremity; Negative for clubbing Skin no rashes or lesions noted Neuro oriented x3 and CN's II-XII intact bilaterally Psych cooperative and affect normal Charges/Coding Visit Charges Inpatient E&M: 98105 Subs Hosp L2
[2024-01-30] MEDS: Potassium Chloride Oral Tablet 20 MEQ 40 MEQ PO (07:36)
[2024-01-30] MEDS: Tamsulosin HCl 0.4 MG Capsule 0.400000000000000022 MG PO (07:37)
[2024-01-30] MEDS: APIXABAN 5 MG TABLET PO ×2 (07:37→20:26)
[2024-01-30] MEDS: Vancomycin HCl 1,250 MG in 0.9% Normal Saline (250mL Bag) 250 ML 167 MG IV (07:37)
[2024-01-30] MEDS: Midodrine HCl 5 MG Tablet 10 MG PO ×3 (07:37→16:24)
[2024-01-30] MEDS: Pantoprazole Sodium 40 MG Tablet PO (07:37)
[2024-01-30] MEDS: Ensure Plus High Protein 120 ML LIQUID PO ×3 (07:37→16:25)
[2024-01-30] MEDS: LISDEXAMFETAMINE DIMESYLATE 50 MG CAPSULE PO (07:39)
[2024-01-30] MEDS: 0.9% Normal Saline (250mL Bag) 250 ML 15 ML IV ×2 (09:46)
--- NOTE | 2024-01-30 10:02 | CASEMGMT ---
Social Work PT/OT still pending at this time. SW spoke w/Moni in TCU, waiting for therapy evaluations and also need to check on bed availability. SW will continue to follow. CRISTAL Almaguer
--- NOTE | 2024-01-30 10:59 | PCM.PN.HOSP ---
Reason for Visit Reason for Visit: Diagnoses Tubulo-interstitial nephritis, not specified as acute or chronic (01/28/24) Acute kidney failure, unspecified (01/28/24) Subjective Subjective No acute events overnight. Patient seen at bedside this morning, present. Patient reports feeling moderately better today compared yesterday. He still feels more fatigued than his baseline but denies any fevers or chills this morning. Denies any other pain or discomfort this morning. No other acute concerns this time. Objective Data Objective Data Vital Signs: Vital Signs Temp Pulse Resp BP Pulse Ox O2 Del Method O2 Flow Rate 97.2 F L 72 15 111/70 96 Room Air 2 01/30/24 08:00 01/30/24 10:00 01/30/24 10:00 01/30/24 10:00 01/30/24 10:00 01/30/24 10:00 01/30/24 07:00 Oxygen Flow Rate (L/min) 2 Oxygen Delivery Method Room Air Weight: 138.3 kg Body Mass Index (BMI) 35.2 Intake & Output: Intake and Output for Last 24 Hours 01/28/24 01/29/24 01/30/24 23:59 23:59 23:59 Intake Total 2632.5 / 2632.5 4205 / 4405 1265 / 1265 Output Total 950 / 950 625 / 1175 950 / 950 Balance 1682.5 / 1682.5 3580 / 3230 315 / 315 Lab / Micro Data 01/30/24 04:15 01/30/24 04:15 Labs: Laboratory Results - last 24 hr 01/30/24 04:15: WBC 11.9 H, RBC 4.23 L, Hgb 11.7 L, Hct 38.1 L, MCV 90.1, MCH 27.7, MCHC 30.7 L, RDW Std Deviation 49.5 H, RDW Coeff of Bravo 15.1 H, Plt Count 158, MPV 9.4, Sodium 143, Potassium 3.4 L, Chloride 110 H, Carbon Dioxide 29.0, Anion Gap 4 L, BUN 35 H, Creatinine 2.02 H, Estim Creat Clear Calc 55.93, Est GFR (MDRD) Af Amer 43 L, Est GFR (MDRD) Non-Af 35 L, BUN/Creatinine Ratio 17.3, Glucose 110 H, Calcium 8.6 Micro: Microbiology 01/28/24 07:59 Urine, Cystoscopy Urine Culture - Preliminary Staphylococcus species 01/28/24 13:30 Blood Culture (Wb) - Left Hand Blood Culture - Preliminary No growth in 48 hours. 01/28/24 12:50 Blood Culture (Wb) - Pic Blood Culture - Preliminary Physical Exam Const alert, oriented x3 and no apparent distress Constitutional Narrative: Pleasant elderly male, obese, still appears fatigued but moderately improved from yesterday, sitting appropriately bed, conversing normally, in no acute distress. General Appearance: cooperative and comfortable HEENT normocephalic, head/scalp atraumatic, hearing grossly normal bilaterally, nasal mucous membranes and turbinates normal and moist oral mucous membranes Eyes PERRL, EOMs intact bilaterally and conjunctivae normal Neck full ROM Chest inspection of chest normal Resp normal respiratory effort and no use of accessory muscles Resp Narrative: Breathing comfortably on room air. Mildly decreased breath sounds throughout bilaterally, no wheezing or crackles noted. Cardio regular rate, regular rhythm, no murmurs and peripheral pulses 2+ throughout GI normal to inspection, nondistended, normoactive bowel sounds, soft to palpation, non-tender and non-distended Back/Spine normal ROM Extremity normal to inspection, full ROM and no pedal edema Skin no rashes or lesions noted Neuro moves all extremities and no focal motor deficits Speech: speech normal Psych mental status grossly normal Assessment & Plan Assessment/Plan (1) Pyelonephritis: (2) LUPE (acute kidney injury): PLAN: Plan Patient is a 68-year-old male who presented to [facility] on 01/28/2024 for a planned urology procedure. Postoperative course was complicated by concern for sepsis with septic shock. Medicine consulted postoperatively for medical management. 1. Sepsis without septic shock secondary to acute pyelonephritis ? Urology primary. S/p cystoscopy and left retrograde pyelogram on 01/27 with mild hydronephrosis noted as well as jose maria purulent urine noted in the left kidney. ? Was noted to be hypotensive and hypoxic postoperatively and admitted to the ICU at that time. His blood pressure and oxygenation status improved quickly after the procedure, so it was felt that these may be secondary to anesthesia. Had leukocytosis and mild LUPE but otherwise did not meet sepsis criteria at that time. ? However, overnight 01/27 into 01/28 patient became febrile and had significant drop in his blood pressure with tachycardia. He was given 1 L normal saline with mild improvement. Notably, patient was put on LR 75 cc/h for 4 to 5 hours after his procedure, was not given a fluid bolus because of lower concern for sepsis and concern for acute hypoxia at that time. ? Patient now meets criteria for sepsis on 01/28 given his acutely worsened hypotension with new onset tachycardia, mildly worsening leukocytosis, ongoing fevers, worsening LUPE and presumed urinary source of infection. ? Gave another 2 L LR bolus over 4 hours on after of 01/28, so given ~3-3.5 L fluids total. Patient's full 30 cc/kg would be approximately 4 L but he is obese, and with this bolus he will have gotten about 3.5 L which should be adequate fluid resuscitation. ? Relocation Specialist following. Continue IV Zosyn for broad UTI coverage. Urine culture, blood cultures pending. Continue midodrine 10 mg 3 times daily. Continue monitoring in the ICU, can add low-dose Levophed as needed. If patient remains stable, hopeful to transfer out of the ICU tomorrow. 2. Acute hypoxia, resolved ? Required up to 15 L nonrebreather postoperatively. Quickly improved to 3 L nasal cannula, suspect hypoxia was largely secondary to intraoperative anesthesia. ? Chest x-ray showed known elevated left hemidiaphragm, mild patchy areas of atelectasis or scarring that are chronic, otherwise no acute findings. ? Patient stable on room air on 01/29, resolved. 3. LUPE ? Creatinine 1.61 on 01/27, baseline creatinine appears to be around 0.8-1.0, though most recent labs on 01/05 and 01/16 showed creatinine values of 1.6-1.8. ? Creatinine worsened to 2.23 on 01/28. FeNa 0.7% consistent with prerenal etiology. ?Give more IV fluids on afternoon of 01/28 as noted above, repeat creatinine on 01/29 with improvement to 2.02. Patient has had adequate urine output through Vo catheter. ? Continue to monitor daily BMP and urine output. 4. Paroxysmal A-fib, history of PE ? Home Eliquis held for 3 days preoperatively. Eliquis restarted on 01/28. Holding home metoprolol given sepsis as noted above. 5. Debility ? PT/OT/case management following. Patient with acute weakness secondary to infection as noted above. Will likely need either SNF placement or home with home health care on discharge. Chronic medical conditions: ? Obesity: BMI 31 on admit. Complicates hospital course, care and prognosis. ? Hypertension: Resume home carvedilol. Holding home lisinopril and Lasix for now given LUPE as noted above, restart when able. ? Multiple sclerosis: Continue home lisdexamfetamine, duloxetine, meclizine as needed. ? GERD: Continue home PPI. ? Hyperlipidemia: Continue home statin. ? BPH with obstructive symptoms: Continue home Flomax. ? JOSH: Continue home CPAP. DVT prophylaxis: Eliquis CODE STATUS: Full code, verified Expected disposition: Home with HHC versus SNF, TBD Total clinical time spent by myself addressing the patient's medical issues, reviewing all the data, and collaborating with patient's care team: 35 minutes. Charges/Coding Visit Charges Inpatient E&M: 68336 Subs Hosp L2
--- NOTE | 2024-01-30 15:42 | CASEMGMT ---
Social Work TCU has not yet been able to give an answer as to whether or not they can take pt, will reassess on Friday. SW spoke w/pt, let him know we do not yet have an answer from TCU, will speak w/TCU again on Friday to see if they are able to take pt. Pt states understanding, he confirmed that if TCU cannot take him he will go home w/home health care. CRISTAL Almaguer
[2024-01-30] MEDS: Furosemide 40 MG/4 ML Vial IV (16:29)
[2024-01-30] MEDS: Vancomycin Trough/Random Due 1 LAB MC (18:31)
[2024-01-30 19:04] LABS: Vancomycin, Trough Level 22.7 ug/mL (5.0-15.0)
--- NOTE | 2024-01-30 19:54 | PCM.RX.CS ---
Consult Antibiotic Management Pharmacy has been consulted to manage selected antibiotic: Vancomycin Type of Intervention Type of Consult: Follow-up Labs Labs: Sodium 143 mmol/L (136-145) 01/30/24 04:15 Potassium 3.4 mmol/L (3.5-5.1) L 01/30/24 04:15 Chloride 110 mmol/L (98-107) H 01/30/24 04:15 Carbon Dioxide 29.0 mmol/L (21.0-32.0) 01/30/24 04:15 Anion Gap 4 (5-15) L 01/30/24 04:15 BUN 35 mg/dL (7-18) H 01/30/24 04:15 Creatinine 2.02 mg/dL (0.70-1.30) H 01/30/24 04:15 Est GFR (MDRD) Af Amer 43 mL/min (>60) L 01/30/24 04:15 Est GFR (MDRD) Non-Af 35 mL/min (>60) L 01/30/24 04:15 BUN/Creatinine Ratio 17.3 RATIO (10-20) 01/30/24 04:15 Glucose 110 mg/dL (74-106) H 01/30/24 04:15 Vancomycin Trough 22.7 ug/mL (5.0-15.0) H 01/30/24 18:35 Microbiology Microbiology: Microbiology 01/28/24 07:59 Urine, Cystoscopy Urine Culture - Preliminary Staphylococcus species 01/28/24 13:30 Blood Culture (Wb) - Left Hand Blood Culture - Preliminary No growth in 48 hours. 01/28/24 12:50 Blood Culture (Wb) - Pic Blood Culture - Preliminary Goal Trough Goal Trough: 15-20 mcg/mL Pharmacy Plan for Drug Dosing Pharmacy Plan for Drug Dosing: VANCOMYCIN LEVEL RECEIVED Current Vancomycin Dose: 1250mg IV Q12h Number of Doses Received: 3 (2 scheduled, 1 initial dose) Vancomycin Level: 22.7 Hours Since Last Dose: 11hr Renal Function: 2.02 Renal Function Trend: slight improvement Lab/Micro: UCx growing staph spp Vancomycin Plan/Comments: Patient had a trough drawn which resulted in a value of 22.7 (goal 15-20). Patient's trough is elevated. Will hold current dose and recheck a trough with AM labs. Once trough <20, will resume dosing Pending Level: *RANDOM* level 01/31/24 @0600 Pharmacy Service will continue to monitor and adjust dosing as required.
[2024-01-30] MEDS: Atorvastatin Calcium 10 MG Tablet PO (20:26)
[2024-01-30] MEDS: DULoxetine Hcl 60 MG Capsule PO (20:27)
[2024-01-31] VITALS (18 sets, daily range): BP systolic 93–125; BP diastolic 52–85; PULSE 65–86; RESP 12–21; TEMP 36.7–37.1; O2SAT 92–95; BMI 35.6
[2024-01-31] MEDS: Vancomycin Trough/Random Due 1 LAB MC (04:42)
[2024-01-31] MEDS: Piperacil/Tazobactam 3.375 GM in 0.9% Normal Saline (50mL MB+) 50 ML IV ×3 (04:57→21:18)
[2024-01-31 05:05] LABS: Absolute Lymphocyte Count 1.84 X10^3/uL (0.83-4.51); Absolute Neutrophil Count 5.4 X10^3/uL (2.0-7.7); Basophil# 0.04 X10^3/uL; Basophil% 0.4 % (0-1); Eosinophil# 0.49 X10^3/uL; Eosinophils% 5.5 % (0-5); Hemoglobin 12.3 g/dL (13.0-16.5); Lymphocyte # 1.84 X10^3/ul (0.83-4.51); Lymphocyte % 20.6 % (19-41); Mean Corp Hgb Conc 32.4 g/dL (32-36); Mean Corpuscular Hgb 28.4 pg (27.0-32.0); Mean Corpuscular Volume 87.8 fL (80-94); Mean Platelet Vol. 9.6 fl (6.2-12.0); Monocyte# 1.11 X10^3/uL; Monocyte% 12.4 % (0-10); NRBC Flagged by Analyzer 0 % (0-5); Neutrophil # 5.44 X10^3/uL (2.7-7.7); Neutrophil % 60.8 % (47-70); Platelet Count 195 K/mm3 (150-450); RBC Distribution Width CV 14.7 % (11.6-14.6); RBC Distribution Width SD 47.6 fl (35.1-43.9); Red Blood Count 4.33 M/mm3 (4.6-6.2)
[2024-01-31 05:24] LABS: Vancomycin, Random Level 16.1 ug/mL (0.0-15.0)
[2024-01-31 05:26] LABS: ALB/GLOB Ratio 0.6 RATIO (0.9-2.4); AST(SGOT) 14 U/L (15-37); Alanine Aminotransfer ALT/SGPT 16 U/L (16-61); Albumin, Serum 2.3 g/dL (3.2-5.0); Alkaline Phosphatase 84 U/L (45-117); Anion Gap 5 (5-15); BUN 26 mg/dL (7-18); BUN/Creat Ratio 18.1 RATIO (10-20); Calcium,Total 9.1 mg/dL (8.5-10.1); Chloride 108 mmol/L (98-107); Creatinine, Serum 1.44 mg/dL (0.70-1.30); EST Glomerular Filtration Rate 52 mL/min (>60); Est Glom Filt Rate - Afr Amer 63 mL/min (>60); Estimated Creatinine Clearance 79.11 ml/min; Globulin 3.8 g/dL (2.2-4.2); Glucose 101 mg/dL (74-106); Potassium 3.6 mmol/L (3.5-5.1); Protein, Total 6.1 g/dL (6.4-8.2); Sodium Level 142 mmol/L (136-145)
--- NOTE | 2024-01-31 06:47 | PCM.RX.CS ---
Consult Antibiotic Management Pharmacy has been consulted to manage selected antibiotic: Vancomycin Type of Intervention Type of Consult: Follow-up Labs Labs: Sodium 142 mmol/L (136-145) 01/31/24 04:40 Potassium 3.6 mmol/L (3.5-5.1) 01/31/24 04:40 Chloride 108 mmol/L (98-107) H 01/31/24 04:40 Carbon Dioxide 29.0 mmol/L (21.0-32.0) 01/31/24 04:40 Anion Gap 5 (5-15) 01/31/24 04:40 BUN 26 mg/dL (7-18) H 01/31/24 04:40 Creatinine 1.44 mg/dL (0.70-1.30) H 01/31/24 04:40 Est GFR (MDRD) Af Amer 63 mL/min (>60) 01/31/24 04:40 Est GFR (MDRD) Non-Af 52 mL/min (>60) L 01/31/24 04:40 BUN/Creatinine Ratio 18.1 RATIO (10-20) 01/31/24 04:40 Glucose 101 mg/dL (74-106) 01/31/24 04:40 Vancomycin Trough 22.7 ug/mL (5.0-15.0) H 01/30/24 18:35 Random Vancomycin 16.1 ug/mL (0.0-15.0) H 01/31/24 04:40 Microbiology Microbiology: Microbiology 01/28/24 07:59 Urine, Cystoscopy Urine Culture - Preliminary Staphylococcus species 01/28/24 13:30 Blood Culture (Wb) - Left Hand Blood Culture - Preliminary No growth in 48 hours. 01/28/24 12:50 Blood Culture (Wb) - Pic Blood Culture - Preliminary Goal Trough Goal Trough: 15-20 mcg/mL Pharmacy Plan for Drug Dosing Pharmacy Plan for Drug Dosing: Pharmacy Service will continue to monitor and adjust dosing as required. RANDOM LEVEL 16.1. START 1GM Q12H AND DRAW TROUGH PRIOR TO 4TH DOSE Follow-Up Labs Follow-Up Labs: Trough: Vancomycin Date/Time Labs Ordered Labs to be done on [date and time ordered]: 01/31 @ 8311
[2024-01-31] MEDS: Vancomycin IV 1,000 MG/200 ML BAG 200 MG IV ×2 (06:54→18:00)
[2024-01-31] MEDS: Midodrine HCl 5 MG Tablet 10 MG PO ×3 (08:42→18:02)
[2024-01-31] MEDS: Tamsulosin HCl 0.4 MG Capsule 0.400000000000000022 MG PO (08:42)
[2024-01-31] MEDS: LISDEXAMFETAMINE DIMESYLATE 50 MG CAPSULE PO (10:31)
[2024-01-31] MEDS: Furosemide 40 MG Tablet PO (10:31)
[2024-01-31] MEDS: Pantoprazole Sodium 40 MG Tablet PO (10:31)
[2024-01-31] MEDS: APIXABAN 5 MG TABLET PO ×2 (10:31→21:14)
[2024-01-31] MEDS: Ensure Plus High Protein 120 ML LIQUID PO (10:35)
--- NOTE | 2024-01-31 13:02 | PN.HOSP_ITS ---
Reason for Visit Reason for Visit: Diagnoses Tubulo-interstitial nephritis, not specified as acute or chronic (01/28/24) Acute kidney failure, unspecified (01/28/24) Subjective Subjective No acute events overnight. Patient seen bedside this morning, present. Patient was sitting up comfortably in bed, conversing normally, no acute distress. Patient continues to feel a bit better today than yesterday, and much better compared to on admission. Denies any fevers or chills overnight. His main concern right now is that he feels volume overloaded specifically in his legs. He still has the Vo catheter in place, unsure about how much urine output he had with the dose of IV Lasix yesterday. He is currently satting well on room air at rest, denies any chest pain or shortness of breath. No other acute concerns this time. Objective Data Objective Data Vital Signs: Vital Signs Temp Pulse Resp BP Pulse Ox O2 Del Method O2 Flow Rate 98.2 F 85 21 H 121/83 H 92 Room Air 2 01/31/24 08:00 01/31/24 09:00 01/31/24 09:00 01/31/24 09:00 01/31/24 10:02 01/31/24 09:00 01/31/24 04:00 Oxygen Flow Rate (L/min) 2 Oxygen Delivery Method Room Air Weight: 140 kg Body Mass Index (BMI) 35.6 Intake & Output: Intake and Output for Last 24 Hours 01/29/24 01/30/24 01/31/24 23:59 23:59 23:59 Intake Total 4205 / 4405 1831 / 1831 550 / 550 Output Total 625 / 1175 4400 / 4400 800 / 800 Balance 3580 / 3230 -2569 / -2569 -250 / -250 Lab / Micro Data 01/31/24 04:40 01/31/24 04:40 Labs: Laboratory Results - last 24 hr 01/30/24 18:35: Vancomycin Trough 22.7 H 01/31/24 04:40: WBC 9.0, RBC 4.33 L, Hgb 12.3 L, Hct 38.0 L, MCV 87.8, MCH 28.4, MCHC 32.4 D, RDW Std Deviation 47.6 H, RDW Coeff of Bravo 14.7 H, Plt Count 195, MPV 9.6, Immature Gran % (Auto) 0.300, Neut % (Auto) 60.8, Lymph % (Auto) 20.6, [place] % (Auto) 12.4 H, Eos % (Auto) 5.5 H, Baso % (Auto) 0.4, Absolute Neuts (auto) 5.4, Absolute Lymphs (auto) 1.84, Nucleated RBC % 0, Sodium 142, Potassium 3.6, Chloride 108 H, Carbon Dioxide 29.0, Anion Gap 5, BUN 26 H, Creatinine 1.44 H, Estim Creat Clear Calc 79.11, Est GFR (MDRD) Af Amer 63, Est GFR (MDRD) Non-Af 52 L, BUN/Creatinine Ratio 18.1, Glucose 101, Calcium 9.1, Total Bilirubin 0.50, AST 14 L, ALT 16, Alkaline Phosphatase 84, Total Protein 6.1 L, Albumin 2.3 L, Globulin 3.8, Albumin/Globulin Ratio 0.6 L, Random Vancomycin 16.1 H Micro: Microbiology 01/28/24 12:50 Blood Culture (Wb) - Pic Blood Culture - Preliminary Gram negative tristin 01/28/24 07:59 Urine, Cystoscopy Urine Culture - Final Staphylococcus simulans 01/28/24 13:30 Blood Culture (Wb) - Left Hand Blood Culture - Preliminary No growth in 48 hours. Physical Exam Const alert, oriented x3 and no apparent distress Constitutional Narrative: Pleasant elderly male, obese, mildly fatigued but continuing to improve, sitting appropriately bed, conversing normally, in no acute distress. General Appearance: cooperative and comfortable HEENT normocephalic, head/scalp atraumatic, hearing grossly normal bilaterally, nasal mucous membranes and turbinates normal and moist oral mucous membranes Eyes PERRL, EOMs intact bilaterally and conjunctivae normal Neck full ROM Chest inspection of chest normal Resp normal respiratory effort and no use of accessory muscles Resp Narrative: Breathing comfortably on room air. Mildly decreased breath sounds throughout bilaterally, no wheezing or crackles noted. Cardio regular rate, regular rhythm, no murmurs and peripheral pulses 2+ throughout GI normal to inspection, nondistended, normoactive bowel sounds, soft to palpation, non-tender and non-distended Back/Spine normal ROM Extremity normal to inspection and full ROM Extremity Narrative: +2 to +3 lower extremity pitting edema up to the knees. Skin no rashes or lesions noted Neuro moves all extremities and no focal motor deficits Speech: speech normal Psych mental status grossly normal Assessment & Plan Assessment/Plan (1) Pyelonephritis: (2) LUPE (acute kidney injury): PLAN: Plan Patient is a 68-year-old male who presented to [facility] on 01/28/2024 for a planned urology procedure. Postoperative course was complicated by concern for sepsis with septic shock. Medicine consulted postoperatively for medical management. 1. Sepsis without septic shock secondary to acute pyelonephritis ? Urology primary. S/p cystoscopy and left retrograde pyelogram on 01/27 with mild hydronephrosis noted as well as jose maria purulent urine noted in the left kidney. ? Was noted to be hypotensive and hypoxic postoperatively and admitted to the ICU at that time. His blood pressure and oxygenation status improved quickly after the procedure, so it was felt that these may be secondary to anesthesia. Had leukocytosis and mild LUPE but otherwise did not meet sepsis criteria at that time. ? However, overnight 01/27 into 01/28 patient became febrile and had significant drop in his blood pressure with tachycardia. He was given 1 L normal saline with mild improvement. Notably, patient was put on LR 75 cc/h for 4 to 5 hours after his procedure, was not given a fluid bolus because of lower concern for sepsis and concern for acute hypoxia at that time. ? Patient now meets criteria for sepsis on 01/28 given his acutely worsened hypotension with new onset tachycardia, mildly worsening leukocytosis, ongoing fevers, worsening LUPE and presumed urinary source of infection. ? Gave another 2 L LR bolus over 4 hours on after of 01/28, so given ~3-3.5 L fluids total. Patient's full 30 cc/kg would be approximately 4 L but he is obese, and with this bolus he will have gotten about 3.5 L which should be adequate fluid resuscitation. ? Urine culture grew only Staph simulans. Blood cultures +1/2 preliminary positive for gram negative tristin. ? Legal Activity Adjudicator followed. Continue IV vancomycin and Zosyn for now, follow-up final blood culture results. Continue midodrine 10 mg 3 times daily for now. Stable for transfer out of the ICU on 01/30. 2. Acute hypoxia, resolved ? Required up to 15 L nonrebreather postoperatively. Quickly improved to 3 L nasal cannula, suspect hypoxia was largely secondary to intraoperative anesthesia. ? Chest x-ray showed known elevated left hemidiaphragm, mild patchy areas of atelectasis or scarring that are chronic, otherwise no acute findings. ? Patient stable on room air on 01/29, resolved. 3. LUPE, improved ? Creatinine 1.61 on 01/27, baseline creatinine appears to be around 0.8-1.0, though most recent labs on 01/05 and 01/16 showed creatinine values of 1.6-1.8. ? Creatinine worsened to 2.23 on 01/28. FeNa 0.7% consistent with prerenal etiology. ? Given more IV fluids on afternoon of 01/28 as noted above, repeat creatinine on 01/29 with improvement to 2.02. Patient has had adequate urine output through Vo catheter. ? Now giving IV Lasix for volume overload as of 01/29, likely secondary to heavy IV fluid resuscitation on admission. Creatinine returned to baseline on 01/30. ? Continue to monitor daily BMP and urine output. 4. Paroxysmal A-fib, history of PE ? Home Eliquis held for 3 days preoperatively. Eliquis restarted on 01/28. Home carvedilol resumed on 01/29, continue. 5. Debility ? PT/OT/case management following. Patient with acute weakness secondary to infection as noted above. Planning for either TCU placement or home with home health care on discharge. 6. Mild volume overload ? Presumed secondary to heavy IV fluid resuscitation on admission. Patient re ported worsening lower extremity swelling on 01/29. Notably stable on room air, no concern for volume overload and lungs. ? Treated with IV Lasix 40 mg twice daily for now. Monitoring urine output and daily BMP. Will transition back to home p.o. Lasix 40 mg daily when able. Chronic medical conditions: ? Obesity: BMI 31 on admit. Complicates hospital course, care and prognosis. ? Hypertension: Resume home carvedilol. Holding home lisinopril, restart when able. ? Multiple sclerosis: Continue home lisdexamfetamine, duloxetine, meclizine as needed. ? GERD: Continue home PPI. ? Hyperlipidemia: Continue home statin. ? BPH with obstructive symptoms: Continue home Flomax. ? JOSH: Continue home CPAP. DVT prophylaxis: Eliquis CODE STATUS: Full code, verified Expected disposition: Home with [facility] versus SNF, 2 to 3 days Total clinical time spent by myself addressing the patient's medical issues, reviewing all the data, and collaborating with patient's care team: 35 minutes. Charges/Coding Visit Charges Inpatient E&M: 85418 Subs Hosp L2
[2024-01-31] MEDS: Furosemide 40 MG/4 ML Vial IV (18:01)
[2024-01-31] MEDS: DULoxetine Hcl 60 MG Capsule PO (21:13)
[2024-01-31] MEDS: Atorvastatin Calcium 10 MG Tablet PO (21:14)
[2024-01-31] MEDS: 0.9% Saline Lock 10 ML Syringe IV (21:22)
[2024-02-01 03:30] VITALS: BP 103/75; PULSE 75; RESP 18; TEMP 36.4; O2SAT 94
[2024-02-01] MEDS: Piperacil/Tazobactam 3.375 GM in 0.9% Normal Saline (50mL MB+) 50 ML IV ×3 (05:32→20:24)
[2024-02-01] MEDS: 0.9% Saline Lock 10 ML Syringe IV (05:34)
[2024-02-01 06:00] VITALS: BMI 35.5
[2024-02-01] MEDS: Vancomycin IV 1,000 MG/200 ML BAG 200 MG IV (06:12)
[2024-02-01 08:30] VITALS: BP 117/68; PULSE 87; RESP 16; TEMP 36.6; O2SAT 94
[2024-02-01] MEDS: Tamsulosin HCl 0.4 MG Capsule 0.400000000000000022 MG PO (08:31)
[2024-02-01] MEDS: Midodrine HCl 5 MG Tablet 10 MG PO ×3 (08:31→18:09)
[2024-02-01] MEDS: Pantoprazole Sodium 40 MG Tablet PO (08:31)
[2024-02-01] MEDS: APIXABAN 5 MG TABLET PO ×2 (08:31→20:23)
[2024-02-01 08:35] LABS: Anion Gap 3 (5-15); BUN 20 mg/dL (7-18); BUN/Creat Ratio 15.4 RATIO (10-20); Calcium,Total 8.9 mg/dL (8.5-10.1); Chloride 109 mmol/L (98-107); EST Glomerular Filtration Rate 59 mL/min (>60); Est Glom Filt Rate - Afr Amer 71 mL/min (>60); Estimated Creatinine Clearance 87.47 ml/min; Glucose 108 mg/dL (74-106); Potassium 3.3 mmol/L (3.5-5.1); Sodium Level 142 mmol/L (136-145)
[2024-02-01 09:07] VITALS: O2SAT 94
[2024-02-01] MEDS: LISDEXAMFETAMINE DIMESYLATE 50 MG CAPSULE PO (10:56)
[2024-02-01] MEDS: Furosemide 40 MG/4 ML Vial IV ×2 (10:56→18:09)
[2024-02-01 11:09] VITALS: BP 133/67; PULSE 79; RESP 16; TEMP 36.6; O2SAT 94
--- NOTE | 2024-02-01 12:04 | PN.HOSP_ITS ---
Reason for Visit Reason for Visit: Diagnoses Tubulo-interstitial nephritis, not specified as acute or chronic (01/28/24) Acute kidney failure, unspecified (01/28/24) Subjective Subjective No acute events overnight. Patient seen at bedside this morning, multiple family members present. Patient was sitting up comfortably in bed, conversing normally, in no acute distress. Patient appeared similar this morning to yesterday, with much more energy than on admission and generally more well- appearing. He denied any fevers or chills overnight. Has been tolerating the IV Lasix without issue, is unsure if his legs feel less volume overloaded as they are wrapped this morning but they are not causing him any pain. No other acute concerns this time. Objective Data Objective Data Vital Signs: Vital Signs Temp Pulse Resp BP Pulse Ox O2 Del Method O2 Flow Rate 97.9 F 79 16 133/67 H 94 Room Air 2 02/01/24 11:09 02/01/24 11:02/01/24 11:02/01/24 11:02/01/24 11:02/01/24 11:02/01/24 05:25 Oxygen Flow Rate (L/min) 2 Oxygen Delivery Method Room Air Weight: 139.5 kg Body Mass Index (BMI) 35.5 Intake & Output: Intake and Output for Last 24 Hours 01/30/24 01/31/24 02/02/24 23:59 23:59 00:59 Intake Total 1831 / 1831 920 / 920 300 / 300 Output Total 4400 / 4400 3960 / 3960 1650 / 1650 Balance -2569 / -2569 -3040 / -3040 -1350 / -1350 Lab / Micro Data 01/31/24 04:40 02/01/24 08:12 Labs: Laboratory Results - last 24 hr 02/01/24 08:12: Sodium 142, Potassium 3.3 L, Chloride 109 H, Carbon Dioxide 30.0, Anion Gap 3 L, BUN 20 H, Creatinine 1.30, Estim Creat Clear Calc 87.47, Est GFR (MDRD) Af Amer 71, Est GFR (MDRD) Non-Af 59 L, BUN/Creatinine Ratio 15.4, Glucose 108 H, Calcium 8.9 Micro: Microbiology 01/28/24 12:50 Blood Culture (Wb) - Pic Blood Culture - Preliminary Sphingomonas paucimobilis 01/28/24 07:59 Urine, Cystoscopy Urine Culture - Final Staphylococcus simulans 01/28/24 13:30 Blood Culture (Wb) - Left Hand Blood Culture - Preliminary No growth in 48 hours. Physical Exam Const alert, oriented x3 and no apparent distress Constitutional Narrative: Pleasant elderly male, obese, mildly fatigued but continuing to improve, sitting up comfortably in bed, conversing normally, in no acute distress. General Appearance: cooperative and comfortable HEENT normocephalic, head/scalp atraumatic, hearing grossly normal bilaterally, nasal mucous membranes and turbinates normal and moist oral mucous membranes Eyes PERRL, EOMs intact bilaterally and conjunctivae normal Neck full ROM Chest inspection of chest normal Resp normal respiratory effort and no use of accessory muscles Resp Narrative: Breathing comfortably on room air. Mildly decreased breath sounds throughout bilaterally, no wheezing or crackles noted. Cardio regular rate, regular rhythm, no murmurs and peripheral pulses 2+ throughout GI normal to inspection, nondistended, normoactive bowel sounds, soft to palpation, non-tender and non-distended Back/Spine normal ROM Extremity normal to inspection and full ROM Extremity Narrative: +2 to +3 lower extremity pitting edema up to the knees. Skin no rashes or lesions noted Neuro moves all extremities and no focal motor deficits Speech: speech normal Psych mental status grossly normal Assessment & Plan Assessment/Plan (1) Pyelonephritis: (2) LUPE (acute kidney injury): PLAN: Plan Patient is a 68-year-old male who presented to [facility] on 01/28/2024 for a planned urology procedure. Postoperative course was complicated by concern for sepsis with septic shock. Medicine consulted postoperatively for medical management. 1. Sepsis without septic shock secondary to acute pyelonephritis ? Urology primary. S/p cystoscopy and left retrograde pyelogram on 01/27 with mild hydronephrosis noted as well as jose maria purulent urine noted in the left kidney. ? Was noted to be hypotensive and hypoxic postoperatively and admitted to the [facility] at that time. His blood pressure and oxygenation status improved quickly after the procedure, so it was felt that these may be secondary to anesthesia. Had leukocytosis and mild LUPE but otherwise did not meet sepsis criteria at that time. ? However, overnight 01/27 into 01/28 patient became febrile and had significant drop in his blood pressure with tachycardia. He was given 1 L normal saline wit h mild improvement. Notably, patient was put on LR 75 cc/h for 4 to 5 hours after his procedure, was not given a fluid bolus because of lower concern for sepsis and concern for acute hypoxia at that time. ? Patient now meets criteria for sepsis on 01/28 given his acutely worsened hypotension with new onset tachycardia, mildly worsening leukocytosis, ongoing fevers, worsening LUPE and presumed urinary source of infection. ? Gave another 2 L LR bolus over 4 hours on after of 01/28, so given ~3-3.5 L f luids total. Patient's full 30 cc/kg would be approximately 4 L but he is obese, and with this bolus he will have gotten about 3.5 L which should be adequate fluid resuscitation. ? Urine culture grew only Staph simulans. Blood cultures +1/2 preliminary positive for gram negative tristin. ? 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 Continue IV vancomycin and Zosyn for now, follow-up final blood culture results. Continue midodrine 10 mg 3 times daily for now. Transferred out of the ICU on 01/30. Infectious disease consulted for antibiotic recommendations on discharge. 2. Acute hypoxia, resolved ? Required up to 15 L nonrebreather postoperatively. Quickly improved to 3 L nasal cannula, suspect hypoxia was largely secondary to intraoperative anesthesia. ? Chest x-ray showed known elevated left hemidiaphragm, mild patchy areas of atelectasis or scarring that are chronic, otherwise no acute findings. ? Patient stable on room air on 01/29, resolved. 3. LUPE, improved ? Creatinine 1.61 on 01/27, baseline creatinine appears to be around 0.8-1.0, though most recent labs on 01/05 and 01/16 showed creatinine values of 1.6-1.8. ? Creatinine worsened to 2.23 on 01/28. FeNa 0.7% consistent with prerenal etiology. ? Given more IV fluids on afternoon of 01/28 as noted above, repeat creatinine on 01/29 with improvement to 2.02. Patient has had adequate urine output through Vo catheter. ? Now giving IV Lasix for volume overload as of 01/29, likely secondary to heavy IV fluid resuscitation on admission. Creatinine returned to baseline on 01/30. ? Patient continued to have good urine output and improvement of creatinine on 01/31, will continue IV Lasix 40 mg twice daily. Plan to transition back to home p.o. Lasix 40 mg daily once able. 4. Paroxysmal A-fib, history of PE ? Home Eliquis held for 3 days preoperatively. Eliquis restarted on 01/28. Home carvedilol resumed on 01/29, continue. 5. Debility ? PT/OT/case management following. Patient with acute weakness secondary to infection as noted above. Planning for either TCU placement or home with home health care on discharge. 6. Mild volume overload ? Presumed secondary to heavy IV fluid resuscitation on admission. Patient reported worsening lower extremity swelling on 01/29. Notably stable on room air, no concern for volume overload and lungs. ? Treating with IV Lasix 40 mg twice daily with good urine output. Will transition back to home p.o. Lasix 40 mg daily when able as noted above. Chronic medical conditions: ? Obesity: BMI 31 on admit. Complicates hospital course, care and prognosis. ? Hypertension: Resume home carvedilol. Holding home lisinopril, restart when able. ? Multiple sclerosis: Continue home lisdexamfetamine, duloxetine, meclizine as needed. ? GERD: Continue home PPI. ? Hyperlipidemia: Continue home statin. ? BPH with obstructive symptoms: Continue home Flomax. ? JOSH: Continue home CPAP. DVT prophylaxis: Eliquis CODE STATUS: Full code, verified Expected disposition: Home with HHC versus SNF (TCU), 2 to 3 days Total clinical time spent by myself addressing the patient's medical issues, reviewing all the data, and collaborating with patient's care team: 35 minutes. Charges/Coding Visit Charges Inpatient E&M: 74482 Subs Hosp L2
[2024-02-01 18:00] VITALS: BP 125/86; PULSE 90; RESP 16; TEMP 36.7; O2SAT 93
[2024-02-01] MEDS: Potassium Chloride Oral Tablet 20 MEQ 40 MEQ PO (18:08)
[2024-02-01 18:30] LABS: Vancomycin, Trough Level 21.8 ug/mL (5.0-15.0)
--- NOTE | 2024-02-01 18:50 | PCM.RX.CS ---
Consult Antibiotic Management Pharmacy has been consulted to manage selected antibiotic: Vancomycin Type of Intervention Type of Consult: Follow-up Suspected Infection Suspected Infection: Other Labs Labs: Sodium 142 mmol/L (136-145) 02/01/24 08:12 Potassium 3.3 mmol/L (3.5-5.1) L 02/01/24 08:12 Chloride 109 mmol/L (98-107) H 02/01/24 08:12 Carbon Dioxide 30.0 mmol/L (21.0-32.0) 02/01/24 08:12 Anion Gap 3 (5-15) L 02/01/24 08:12 BUN 20 mg/dL (7-18) H 02/01/24 08:12 Creatinine 1.30 mg/dL (0.70-1.30) 02/01/24 08:12 Est GFR (MDRD) Af Amer 71 mL/min (>60) 02/01/24 08:12 Est GFR (MDRD) Non-Af 59 mL/min (>60) L 02/01/24 08:12 BUN/Creatinine Ratio 15.4 RATIO (10-20) 02/01/24 08:12 Glucose 108 mg/dL (74-106) H 02/01/24 08:12 Vancomycin Trough 21.8 ug/mL (5.0-15.0) H 02/01/24 18:03 Random Vancomycin 16.1 ug/mL (0.0-15.0) H 01/31/24 04:40 Microbiology Microbiology: Microbiology 01/28/24 12:50 Blood Culture (Wb) - Pic Blood Culture - Preliminary Sphingomonas paucimobilis 01/28/24 07:59 Urine, Cystoscopy Urine Culture - Final Staphylococcus simulans 01/28/24 13:30 Blood Culture (Wb) - Left Hand Blood Culture - Preliminary No growth in 48 hours. Goal Trough Goal Trough: 15-20 mcg/mL Pharmacy Plan for Drug Dosing Pharmacy Plan for Drug Dosing: VANCOMYCIN LEVEL RECEIVED Current Vancomycin Dose: 1000mg q12h (,) Number of Doses Received: x3 of current 1000mg dose Vancomycin Level: 21.8 Hours Since Last Dose: last dose actually administered ~11am. 7am dose scanned, but not actually administered. 7 hours since last administered dose Renal Function: SrCr 1.3 Renal Function Trend: improving/stable Lab/Micro: Vancomycin Plan/Comments: due to the previous dose being administered 4 hours late, recommend holding x1 dose (02/01/24 1900 dose) and resuming as scheduled on 02/02/24 at 0700 Pending Level: 02/03/24 at 0630 Pharmacy Service will continue to monitor and adjust dosing as required. Follow-Up Labs Follow-Up Labs: Trough: Vancomycin (02/03/24 at 0630)
[2024-02-01 20:18] VITALS: BP 120/71; PULSE 88; RESP 18; TEMP 36.7; O2SAT 93
[2024-02-01] MEDS: Atorvastatin Calcium 10 MG Tablet PO (20:23)
[2024-02-01] MEDS: DULoxetine Hcl 60 MG Capsule PO (20:23)
[2024-02-02 02:40] VITALS: BP 125/76; PULSE 87; RESP 18; TEMP 36.6; O2SAT 96
[2024-02-02 03:51] VITALS: O2SAT 96
[2024-02-02] MEDS: 0.9% Saline Lock 10 ML Syringe IV (05:06)
[2024-02-02] MEDS: Piperacil/Tazobactam 3.375 GM in 0.9% Normal Saline (50mL MB+) 50 ML IV (05:11)
[2024-02-02 05:53] VITALS: BMI 35.3
[2024-02-02] MEDS: Vancomycin IV 1,000 MG/200 ML BAG 200 MG IV (06:23)
[2024-02-02 07:17] LABS: Anion Gap 4 (5-15); BUN 21 mg/dL (7-18); BUN/Creat Ratio 15.4 RATIO (10-20); Calcium,Total 9.1 mg/dL (8.5-10.1); Chloride 106 mmol/L (98-107); Creatinine, Serum 1.36 mg/dL (0.70-1.30); EST Glomerular Filtration Rate 56 mL/min (>60); Est Glom Filt Rate - Afr Amer 67 mL/min (>60); Estimated Creatinine Clearance 83.34 ml/min; Glucose 126 mg/dL (74-106); Potassium 3.3 mmol/L (3.5-5.1); Sodium Level 141 mmol/L (136-145)
--- NOTE | 2024-02-02 07:38 | PCM.DC.SUM ---
Providers Date of Admission: 01/28/24 Primary Care Physician: Dr. Robert John MD Consultations 01/28/24 09:25 Consult: Hospitalist Routine Consulting Provider: [facility] Reason for Consult: icu septic after stent EMERGENT Consult: Yes MD Notified: Yes Date Notified: 01/28/24 Time Notified: 11:00 Method of Notification: Text 01/28/24 09:26 Consult: Manager Metrology / Pulmonary Medicine Routine Consulting Provider: Intensivists/Pulmonary Med Reason for Consult: low Blood pressure EMERGENT Consult: Yes MD Notified: Yes Date Notified: 01/28/24 Time Notified: 11:00 Method of Notification: Text 02/01/24 07:51 Consult: Infectious Disease Routine Consulting Provider: Uzair Mendoza Reason for Consult: UTI w/ gram neg bacteremia and staph simulans in urine EMERGENT Consult: No MD Notified: Yes Date Notified: 02/02/24 Time Notified: 06:47 Method of Notification: Answering Service Reason For Visit: 01/28/24 09:35 Percutaneous Nephrostolithomy Diagnosis Discharge Diagnosis (1) Pyelonephritis: Status: Acute Code(s): N12 - Tubulo-interstitial nephritis, not specified as acute or chronic (2) LUPE (acute kidney injury): Status: Resolved Code(s): N17.9 - Acute kidney failure, unspecified Medications at Discharge Home Medications ocrelizumab 30 mg/mL intravenous solution (Ocrevus) 600 mg IV .COMPLEX multiple sclerosis 11/04/17 cholecalciferol (vitamin D3) 25 mcg (1,000 unit) tablet 5,000 unit PO DAILY supplement 05/28/18 multivitamin with folic acid 400 mcg tablet 1 tab PO DAILY supplement 05/28/18 pantoprazole 40 mg tablet,delayed release 40 mg PO DAILY reflux 12/01/19 potassium citrate 15 mEq (1,620 mg) tablet,extended release 15 meq PO BID supplement ##60 02/04/20 albuterol sulfate 2.5 mg/3 mL (0.083 %) solution for nebulization 2.5 mg (3 mL) inhalation Q4H PRN shortness of breath or wheezing #180 vials 01/17/21 duloxetine 60 mg capsule,delayed release 60 mg PO QHS nerve 07/02/22 meclizine 25 mg tablet 25 mg PO DAILY PRN Dizziness 07/02/22 tamsulosin 0.4 mg capsule 0.4 mg PO DAILY prostate 07/02/22 apixaban 5 mg tablet 5 mg PO BID blood thinner #180 tabs 05/15/23 simvastatin 20 mg tablet 20 mg PO QHS cholesterol 07/02/23 lisdexamfetamine 50 mg capsule 50 mg PO DAILY MS 07/03/23 sodium bicarbonate 650 mg tablet 650 mg PO BID supplement 07/03/23 lisinopril 20 mg tablet 20 mg PO DAILY blood pressure 08/11/23 vitamin E 200 unit capsule 400 unit PO DAILY vitamin 08/18/23 sodium chloride 0.65 % nasal spray aerosol 2 spray NASAL TID PRN PRN NASAL DRYNESS #100 mL 08/26/23 tizanidine 4 mg tablet 4 mg PO PRN 09/23/23 carvedilol 12.5 mg tablet See Rx Instructions .Route .COMPLEX #180 tabs 11/18/23 furosemide 40 mg tablet (Lasix) 40 mg PO DAILY 01/07/24 sennosides 8.6 mg-docusate sodium 50 mg tablet (Stool Softener-Stimulant Laxative) 2 tab PO PRN 01/20/24 amoxicillin 500 mg capsule 500 mg PO TID #15 caps 01/28/24 Hospital Course Summary of Care Provided Minutes Spent on Discharge: 35 Hospital Course: 68-year-old male with history of multiple sclerosis has a history of debility for multiple sclerosis and has been getting chronic infections from an infected stone in the left kidney he was brought in the hospital for percutaneous nephrostolithotomy but upon stent placement he had a significant amount of pus in the urine as the case was aborted despite aborting the case he still became septic afterwards ended up in the intensive care unit for 2 days blood pressure then resolved urine cultures came back positive pansensitive he did have 1 blood culture positive there was some rare bacteria. Otherwise he is clinically stable and will be discharged home with a course of amoxicillin we will DC the Gilda and he will follow-up in my office will plan for percutaneous removal of the infected kidney stone at a later date. Physical Exam Const alert and oriented x3 General Appearance: cooperative HEENT normocephalic, head/scalp atraumatic, EAC's normal and TM's normal bilaterally Eyes PERRL and EOMs intact bilaterally Pupil: sluggish Neck no lymphadenopathy, supple and no JVD General: trachea midline Lymph Lymphatic: no lymphadenopathy noted, lymphedema and lymphadenopathy Resp normal respiratory effort, normal air movement and clear to auscultation bilaterally Cardio regular rate, regular rhythm and peripheral pulses 2+ throughout GI soft to palpation, non-tender and non-distended Extremity normal capillary refill and no clubbing, cyanosis or edema General Extremity: no tenderness to palpation of joints or extremities Skin no rashes or lesions noted General Skin Exam: turgor normal Lesions: no lesions Rashes: no rashes Neuro CN's II-XII intact bilaterally Speech: speech normal Motor Exam: strength 5/5 throughout; Negative for general weakness Psych thought process normal, cooperative and affect normal Appearance: appropriate Weight / BMI Weight Weight: 138.6 kg Body Mass Index (BMI) 35.3 ABG / Lab / Microbiology Data 01/31/24 04:40 02/02/24 06:10 Laboratory: Laboratory Results - last 24 hr 02/01/24 08:12: Sodium 142, Potassium 3.3 L, Chloride 109 H, Carbon Dioxide 30.0, Anion Gap 3 L, BUN 20 H, Creatinine 1.30, Estim Creat Clear Calc 87.47, Est GFR (MDRD) Af Amer 71, Est GFR (MDRD) Non-Af 59 L, BUN/Creatinine Ratio 15.4, Glucose 108 H, Calcium 8.9 02/01/24 18:03: Vancomycin Trough 21.8 H 02/02/24 06:10: Sodium 141, Potassium 3.3 L, Chloride 106, Carbon Dioxide 31.0, Anion Gap 4 L, BUN 21 H, Creatinine 1.36 H, Estim Creat Clear Calc 83.34, Est GFR (MDRD) Af Amer 67, Est GFR (MDRD) Non-Af 56 L, BUN/Creatinine Ratio 15.4, Glucose 126 H, Calcium 9.1 Microbiology: Microbiology 01/28/24 12:50 Blood Culture (Wb) - Pic Blood Culture - Preliminary Sphingomonas paucimobilis 01/28/24 07:59 Urine, Cystoscopy Urine Culture - Final Staphylococcus simulans 01/28/24 13:30 Blood Culture (Wb) - Left Hand Blood Culture - Preliminary No growth in 48 hours. D/C Instructions Discharge Diet: No restrictions Call your doctor if you observe: Fever of 101 or Higher Please Follow Up With: Wilmer Bernardo MD When: Call [phone] for an appointment Meaningful Use Info Meaningful Use Diagnoses (Choose all that apply): None applicable Discharge Plan Admission Admit Date/Time: 01/28/24 09:24 Primary Reason for Your Visit: Infected left kidney stone Attending Provider: Wilmer Bernardo Primary Care Provider: Robert John Consulting Providers: Rosalia Brooks; Rosalia Cisse; Koby Sy; Uzair Mendoza; Jessica Robison Discharge Orders/Prescriptions Prescriptions: New amoxicillin 500 mg capsule 500 mg PO TID Qty: 15 0RF Continued ocrelizumab [Ocrevus] 30 mg/mL solution 600 mg IV .COMPLEX Patient Comments: every 6 months Rx Instructions: every 6 months simvastatin 20 mg tablet 20 mg PO QHS sodium bicarbonate 650 mg tablet 650 mg PO BID Patient Comments: TAKE 1 TABLET BY MOUTH TWICE A DAY furosemide [Lasix] 40 mg tablet 40 mg PO DAILY cholecalciferol (vitamin D3) 1,000 UNIT tablet 5,000 unit PO DAILY Patient Comments: vitamin multivitamin with folic acid 1 TABLET tablet 1 tab PO DAILY Patient Comments: vitamin pantoprazole 40 MG tablet 40 mg PO DAILY lisdexamfetamine 50 mg capsule 50 mg PO DAILY Patient Comments: add potassium citrate 15 MEQ tablet extended release 15 meq PO BID Qty: 60 5RF meclizine 25 mg tablet 25 mg PO DAILY PRN (Reason: Dizziness) Patient Comments: TAKE 1 TABLET BY MOUTH TWICE A DAY NEEDED duloxetine 60 mg capsule,delayed release(DR/EC) 60 mg PO QHS Patient Comments: TAKE 1 CAPSULE BY MOUTH EVERY DAY tamsulosin 0.4 mg capsule 0.4 mg PO DAILY tizanidine 4 mg tablet 4 mg PO PRN sennosides-docusate sodium [Stool Softener-Stimulant Laxat] 8.6-50 mg Tablet 2 tab PO PRN lisinopril 20 mg tablet 20 mg PO DAILY Patient Comments: TAKE 1 TABLET BY MOUTH EVERY DAY vitamin E 200 unit capsule 400 unit PO DAILY sodium chloride 0.65 % Aerosol,[place] 2 spray NASAL TID PRN PRN (Reason: NASAL DRYNESS) Qty: 100 0RF albuterol sulfate 2.5 mg /3 mL (0.083 %) solution for nebulization 2.5 mg INHALATION Q4H PRN (Reason: shortness of breath or wheezing) Qty: 180 6RF apixaban 5 mg tablet 5 mg PO BID Qty: 180 6RF Patient Comments: STOP 3 DAYS PRIOR carvedilol 12.5 mg tablet See Rx Instructions .ROUTE .COMPLEX Qty: 180 3RF Dose Instruction: TAKE 1 TABLET BY MOUTH TWICE A DAY WITH FOOD Rx Instructions: TAKE 1 TABLET BY MOUTH TWICE A DAY WITH FOOD Referrals / Follow Up: Robert John MD [Primary Care Provider] - Disposition Discharge Orders: Discharge Patient (Routine); Ordered 02/02/24 Ordered By: Dr. Wilmer Bernardo
[2024-02-02 08:28] VITALS: O2SAT 96
--- NOTE | 2024-02-02 09:12 | CASEMGMT ---
CLEMENTINA spoke with patient and his . They have decided to go home at discharge. They thanked CLEMENTINA for checking. CLEMENTINA canceled referral with Moni. Nicky BERMUDEZ
--- NOTE | 2024-02-02 09:47 | CASEMGMT ---
Addendum entered by Perla Swartz 02/02/24 11:54: ELIZABETH PINEDA received call back from [facility] and they are able to accept patient with planned start of care for Friday. RN CM updated patient and . Patient and had no further questions or concerns. Original Note: Patient has order for discharge. ELIZABETH CM in to discuss needs at discharge. Patient and would like [facility] for PT/OT. and patient prefer [facility] and decline list of [facility] agencies. Patient and denied further needs at discharge. ELIZABETH PINEDA called and made referral to [facility], awaiting acceptance. CM to continue to follow this patient and plan for a safe discharge.
[2024-02-02] MEDS: APIXABAN 5 MG TABLET PO (09:59)
[2024-02-02] MEDS: Potassium Chloride Oral Tablet 20 MEQ 40 MEQ PO (09:59)
[2024-02-02] MEDS: Midodrine HCl 5 MG Tablet 10 MG PO (09:59)
[2024-02-02] MEDS: Pantoprazole Sodium 40 MG Tablet PO (10:00)
[2024-02-02] MEDS: Tamsulosin HCl 0.4 MG Capsule 0.400000000000000022 MG PO (10:00)
[2024-02-02] MEDS: LISDEXAMFETAMINE DIMESYLATE 50 MG CAPSULE PO (10:01)
[2024-02-02 10:06] VITALS: BP 123/72; PULSE 87; RESP 16; TEMP 36.7; O2SAT 92
--- NOTE | 2024-02-02 14:11 | PHA.DC_ITS ---
Pharmacy [facility] Pharmacy Service has performed discharge medication reconciliation and counseling for this patient. The patient's discharge medication list was reviewed for discrepancies and discrepancies were resolved. The patient was counseled on the following discharge medications and changes in medications for homegoing were reviewed. The Reason for Use, instructions for use, and potential side effects were reviewed for all new medications. The patient's questions regarding all of their medications were answered. 1. Cefdinir 300 mg PO BID x 5 days The patient was able to verbally demonstrate an understanding of their discharge medications. Medications at Discharge Home Medications ocrelizumab 30 mg/mL intravenous solution (Ocrevus) 600 mg IV .COMPLEX multiple sclerosis 11/04/17 cholecalciferol (vitamin D3) 25 mcg (1,000 unit) tablet 5,000 unit PO DAILY supplement 05/28/18 multivitamin with folic acid 400 mcg tablet 1 tab PO DAILY supplement 05/28/18 pantoprazole 40 mg tablet,delayed release 40 mg PO DAILY reflux 12/01/19 potassium citrate 15 mEq (1,620 mg) tablet,extended release 15 meq PO BID supplement ##60 02/04/20 albuterol sulfate 2.5 mg/3 mL (0.083 %) solution for nebulization 2.5 mg (3 mL) inhalation Q4H PRN shortness of breath or wheezing #180 vials 01/17/21 duloxetine 60 mg capsule,delayed release 60 mg PO QHS nerve 07/02/22 meclizine 25 mg tablet 25 mg PO DAILY PRN Dizziness 07/02/22 tamsulosin 0.4 mg capsule 0.4 mg PO DAILY prostate 07/02/22 apixaban 5 mg tablet 5 mg PO BID blood thinner #180 tabs 05/15/23 simvastatin 20 mg tablet 20 mg PO QHS cholesterol 07/02/23 lisdexamfetamine 50 mg capsule 50 mg PO DAILY MS 07/03/23 sodium bicarbonate 650 mg tablet 650 mg PO BID supplement 07/03/23 lisinopril 20 mg tablet 20 mg PO DAILY blood pressure 08/11/23 vitamin E 200 unit capsule 400 unit PO DAILY vitamin 08/18/23 sodium chloride 0.65 % nasal spray aerosol 2 spray NASAL TID PRN PRN NASAL DRYNESS #100 mL 08/26/23 tizanidine 4 mg tablet 4 mg PO PRN 10/31/23 carvedilol 12.5 mg tablet See Rx Instructions .Route .COMPLEX #180 tabs 11/18/23 furosemide 40 mg tablet (Lasix) 40 mg PO DAILY 01/07/24 sennosides 8.6 mg-docusate sodium 50 mg tablet (Stool Softener-Stimulant Laxative) 2 tab PO PRN 01/20/24 cefdinir 300 mg capsule 300 mg PO BID #10 caps 02/02/24
--- NOTE | 2024-02-02 14:34 | PN_ITS ---
Subjective Subjective Patient seen and examined. His was by his bedside. He had no complaints. Review of systems otherwise negative. He has been discharged. Urology. Objective Data Objective Data Vital Signs: Vital Signs Temp Pulse Resp BP Pulse Ox O2 Del Method O2 Flow Rate 98.1 F 87 16 123/72 H 92 Room Air 2 02/02/24 10:06 02/02/24 10:06 02/02/24 10:06 02/02/24 10:02/02/24 10:02/02/24 10:02/02/24 03:51 Oxygen Flow Rate (L/min) 2 Oxygen Delivery Method Room Air Weight: 305 lb 8.971 oz Body Mass Index (BMI) 35.3 Intake & Output: Intake and Output for Last 24 Hours 01/31/24 02/01/24 02/02/24 22:59 23:59 23:59 Intake Total 300 / 300 Output Total 400 / 400 Balance -100 / -100 Lab / Micro Data 01/31/24 04:40 02/02/24 06:10 Labs: Laboratory Results - last 24 hr 02/01/24 18:03: Vancomycin Trough 21.8 H 02/02/24 06:10: Sodium 141, Potassium 3.3 L, Chloride 106, Carbon Dioxide 31.0, Anion Gap 4 L, BUN 21 H, Creatinine 1.36 H, Estim Creat Clear Calc 83.34, Est GFR (MDRD) Af Amer 67, Est GFR (MDRD) Non-Af 56 L, BUN/Creatinine Ratio 15.4, Glucose 126 H, Calcium 9.1 Micro: Microbiology 01/28/24 12:50 Blood Culture (Wb) - Pic Blood Culture - Final Sphingomonas paucimobilis 01/28/24 07:59 Urine, Cystoscopy Urine Culture - Final Staphylococcus simulans 01/28/24 13:30 Blood Culture (Wb) - Left Hand Blood Culture - Preliminary No growth in 48 hours. Physical Exam Const alert, oriented x3 and no apparent distress General Appearance: cooperative and well developed HEENT normocephalic, head/scalp atraumatic, moist oral mucous membranes and oropharynx normal Eyes PERRL and EOMs intact bilaterally Neck no lymphadenopathy, supple and no JVD Lymph Lymphatic: no lymphadenopathy noted and no lymphedema noted Resp normal respiratory effort, normal air movement and clear to auscultation bilaterally Cardio regular rate, regular rhythm, S1 normal heart sound, S2 normal heart sound and no murmurs GI normal to inspection, nondistended, normoactive bowel sounds, soft to palpation and non-tender Extremity normal capillary refill, no clubbing, cyanosis or edema and no calf tenderness Skin General Skin Exam: no breakdown and turgor normal Neuro CN's II-XII intact bilaterally Neuro Narrative: has a history of MS. Not able to ambulate Motor Exam: general weakness Psych thought process normal and cooperative Appearance: appropriate Assessment & Plan Assessment/Plan (1) Pyelonephritis: PLAN: Plan #Sepsis due to acute pyelonephritis * Sepsis has resolved. S/p cystoscopy and left retrograde pyelogram. Had purulent urine noted in the left kidney. * Sepsis resolved with antibiotics and IV fluid hydration. Urine cultures grew staph stimulants. Blood cultures positive in 1 out of 2 samples for gram- negative rods. * Was on IV vancomycin and Zosyn. ID on board. * #Hypotension: Now on midodrine to help with hypotension. #LUPE: Resolved #Hypokalemia: Potassium replaced today. Will monitor. #Hypoxia: Resolved. Now on room air. #Paroxysmal A-fib, on Eliquis. On carvedilol. #Fluid overload: Was on IV Lasix. Blood pressures running a bit low today so Lasix held. Back on p.o. Lasix. #Hypertension: On carvedilol. #History of multiple sclerosis: On lisdexamfetamine, duloxetine and meclizine. #BPH: on flomax #JOSH: on CPAP qhs. DVT prophylaxis: eliquis. Disposition: Stable for discharge from hospitalist standpoint. Charges/Coding Visit Charges Inpatient E&M: 79838 Subs Hosp L2
--- NOTE | 2024-02-02 14:52 | CON.PCM.ID_ITS ---
Assessment & Plan Assessment/Plan (1) Pyelonephritis: PLAN: Ucx with small amount MS Nakul le. Bcx with sphingomonas. Much improved with vanc/zosyn. Ok for home with 5 more days po cefdinir, monitor for any recurrence of symptoms. Will follow as needed, wrote rx, d/w nursing (2) Bacteremia due to Gram-negative bacteria: HPI Consult Data Date of Consult: 02/02/24 HPI Narrative Reason for Consultation: bacteremia HPI Narrative: NERY MIDDLETON, is a 68 M with h/o kidney stones, came to [facility] for scheduled perc L nephrolithotomy 01/28/[address] Bernardo. Cystoscopy and stent placement done with drainage of jose maria pus from around the kidney. Procedure was stopped at that point, developed hypotension, fever, admitted to icu on vanc/zosyn. Now feeling better, leo was just removed, no abd pain, is urinating. Full ROS performed and neg except as noted above. [facility] Medical History Abnormal EKG Atrial septal defect Bladder cancer Cancer Cardiology follow-up encounter Chronic anticoagulation COVID-19 CPAP (continuous positive airway pressure) dependence Depression Easy bruising Excessive bleeding Gastric reflux High cholesterol History of atrial fibrillation History of echocardiogram History of edema Hx of multiple sclerosis Hyperlipidemia Hypertension Kidney stones Multiple sclerosis Non-smoker Normal stress echocardiogram Obstructive sleep apnea On home oxygen therapy Paroxysmal atrial fibrillation Pulmonary embolism Recurrent UTI Sleep apnea Syncope due to orthostatic hypotension Uses wheelchair Wears glasses Home Medications ocrelizumab 30 mg/mL intravenous solution (Ocrevus) 600 mg IV .COMPLEX multiple sclerosis 11/04/17 [History Last Taken 10/03/23] cholecalciferol (vitamin D3) 25 mcg (1,000 unit) tablet 5,000 unit PO DAILY supplement 05/28/18 [History Last Taken 01/27/24] multivitamin with folic acid 400 mcg tablet 1 tab PO DAILY supplement 05/28/18 [History Last Taken 01/27/24] pantoprazole 40 mg tablet,delayed release 40 mg PO DAILY reflux 12/01/19 [History Last Taken 01/28/24] potassium citrate 15 mEq (1,620 mg) tablet,extended release 15 meq PO BID supple ment ##60 02/04/20 [Rx Last Taken 01/27/24] albuterol sulfate 2.5 mg/3 mL (0.083 %) solution for nebulization 2.5 mg (3 mL) inhalation Q4H PRN shortness of breath or wheezing #180 vials 01/17/21 [Rx Last Taken 08/18/23] duloxetine 60 mg capsule,delayed release 60 mg PO QHS nerve 07/02/22 [History La st Taken 01/27/24] meclizine 25 mg tablet 25 mg PO DAILY PRN Dizziness 07/02/22 [History Last Taken 08/17/23] tamsulosin 0.4 mg capsule 0.4 mg PO DAILY prostate 07/02/22 [History Last Taken 01/27/24] apixaban 5 mg tablet 5 mg PO BID blood thinner #180 tabs 05/15/23 [Rx Last Taken 01/24/24] simvastatin 20 mg tablet 20 mg PO QHS cholesterol 07/02/23 [History Last Taken 01/27/24] lisdexamfetamine 50 mg capsule 50 mg PO DAILY MS 07/03/23 [History Last Taken 01/27/24] sodium bicarbonate 650 mg tablet 650 mg PO BID supplement 07/03/23 [History Last Taken 01/27/24] lisinopril 20 mg tablet 20 mg PO DAILY blood pressure 08/11/23 [History Last Taken 01/28/24] vitamin E 200 unit capsule 400 unit PO DAILY vitamin 08/18/23 [History Last Taken 01/27/24] sodium chloride 0.65 % nasal spray aerosol 2 spray NASAL TID PRN PRN NASAL DRYNESS #100 mL 08/26/23 [Rx Last Taken Unknown] tizanidine 4 mg tablet 4 mg PO PRN 09/23/23 [History Last Taken Unknown] carvedilol 12.5 mg tablet See Rx Instructions .Route .COMPLEX #180 tabs 11/18/23 [Rx Last Taken 01/28/24] furosemide 40 mg tablet (Lasix) 40 mg PO DAILY 01/07/24 [History Last Taken 01/27/24] sennosides 8.6 mg-docusate sodium 50 mg tablet (Stool Softener-Stimulant Laxative) 2 tab PO PRN 01/20/24 [History Last Taken Unknown] cefdinir 300 mg capsule 300 mg PO BID #10 caps 02/02/24 [Rx Last Taken Unknown] Allergy/AdvReac Type Severity Reaction Status Date / Time No Known Allergies Allergy Verified 01/28/24 06:36 Family History Father CAD (coronary artery disease) Hypertension Myocardial infarction Mother Hypertension Sister Multiple sclerosis Surgical History History of bladder surgery History of cystoscopy History of esophagogastroduodenoscopy (EGD) History of lithotripsy History of vasectomy S/P ureteral stent placement Social History household members: spouse and family Smoking Status: Never smoker alcohol intake: never substance use type: does not use caffeine: Yes (very little) Physical Exam Const alert, oriented x3 and no apparent distress General Appearance: cooperative HEENT normocephalic and head/scalp atraumatic Eyes PERRL and EOMs intact bilaterally Neck supple and No nodes Resp normal air movement and clear to auscultation bilaterally Cardio regular rate and regular rhythm GI soft to palpation, non-tender and non-distended Extremity General Extremity: Negative for edema Skin no rashes or lesions noted Neuro CN's II-XII intact bilaterally Lab / Micro Data Attestation: I reviewed the patient's lab results. 01/31/24 04:40 02/02/24 06:10 Labs: Laboratory Results - last 24 hr 02/01/24 18:03: Vancomycin Trough 21.8 H 02/02/24 06:10: Sodium 141, Potassium 3.3 L, Chloride 106, Carbon Dioxide 31.0, Anion Gap 4 L, BUN 21 H, Creatinine 1.36 H, Estim Creat Clear Calc 83.34, Est GFR (MDRD) Af Amer 67, Est GFR (MDRD) Non-Af 56 L, BUN/Creatinine Ratio 15.4, Glucose 126 H, Calcium 9.1 Micro: Microbiology 01/28/24 12:50 Blood Culture (Wb) - Pic Blood Culture - Final Sphingomonas paucimobilis
[2024-02-02 15:51] VITALS: BP 132/92; PULSE 73; RESP 16; TEMP 36.9; O2SAT 92
--- NOTE | 2024-02-02 16:42 | CHAPLAIN ---
Type of Pastoral Visit ___ Initial Visit _x__ Follow-up Visit ___ On-call Visit ___ General Patient Visit ___ Spiritual Assessment ___ Family Conference ___ Bereavement ___ Rapid Response ___ Code Blue ___ Other (describe below) Pastoral Care Referral From _x__ Patient ___ Family ___ Nurse ___ Physician ___ Overage Shortage And Damage Clerk ___ Industrial Electrical Engineer ___ Other (describe below) Sacrament/Intervention _x__ Active listening ___ Anointing ___ Voodoo ___ Bereavement ___ Communion ___ Terri exploration ___ ___ Life review ___ Prayer ___ Reconciliation ___ Sacrament of Sick _x__ Supportive presence ___ Wedding ___ Other (describe below) Pastoral Comments
== END 2024-02-02 17:04 | disposition home health service (06) | DRG 659 ==
LOC: SDC 10:22 → ICU 10:22 → PCU 01-31 14:34
PROVIDERS: Family Medicine; Hospitalist; Internal Medicine Critical Care Medicine; Admitting Provider Urology; PCP Internal Medicine; Referring Provider Urology; Visit Provider Urology
PROC: 0T748DZ Dilation of Left Kidney Pelvis with Intraluminal Device, Via Natural or Artificial Opening Endoscopic (ICD-10-PCS; principal; 2024-01-28 07:10)
DX: N10 Acute pyelonephritis (principal); A41.9 Sepsis, unspecified organism; N13.8 Other obstructive and reflux uropathy; N17.9 Acute kidney failure, unspecified; E66.9 Obesity, unspecified; G35 Multiple sclerosis; I48.0 Paroxysmal atrial fibrillation; I10 Essential (primary) hypertension; E78.5 Hyperlipidemia, unspecified; K21.9 Gastro-esophageal reflux disease without esophagitis; G47.33 Obstructive sleep apnea (adult) (pediatric); I95.81 Postprocedural hypotension; E87.6 Hypokalemia; N13.6 Pyonephrosis; N20.0 Calculus of kidney; Z79.01 Long term (current) use of anticoagulants; Z86.16 Personal history of COVID-19; R09.02 Hypoxemia; N40.1 Benign prostatic hyperplasia with lower urinary tract symptoms; Z68.31 Body mass index [BMI] 31.0-31.9, adult
CPT/HCPCS: 36415; 36569; 71045; 76000; 80048; 80053; 80202; 82570; 84300; 85025; 85027; 87040; 87077; 87086; 87088; 87186; 88108; 88313; 94668; 97110; 97161; 97166; 97530; 97535; 97802; 97803; J7030; J7040; J7050; J7120; A4216; C1769; C2617; J1940; J2405

== ENCOUNTER → 2024-06-15 | Outpatient (CLI) | payer MEDICARE, SELFPAY ==
[2024-06-15 10:32] LABS: ALB/GLOB Ratio 0.8 RATIO (0.9-2.4); AST(SGOT) 11 U/L (15-37); Alanine Aminotransfer ALT/SGPT 18 U/L (16-61); Albumin, Serum 3.1 g/dL (3.2-5.0); Alkaline Phosphatase 112 U/L (45-117); Anion Gap 7 (5-15); BUN 20 mg/dL (7-18); BUN/Creat Ratio 13.1 RATIO (10-20); Calcium,Total 9.4 mg/dL (8.5-10.1); Chloride 108 mmol/L (98-107); Creatinine, Serum 1.53 mg/dL (0.70-1.30); EST Glomerular Filtration Rate 49 mL/min (>60); Est Glom Filt Rate - Afr Amer 59 mL/min (>60); Glucose 108 mg/dL (74-106); Potassium 3.9 mmol/L (3.5-5.1); Protein, Total 7.1 g/dL (6.4-8.2); Sodium Level 144 mmol/L (136-145)
== END | disposition home or self-care (01) ==
LOC: MTLAB 08:11
PROVIDERS: PCP Internal Medicine; Referring Provider Physician Assistant; Visit Provider Physician Assistant
DX: G35 Multiple sclerosis (principal)
CPT/HCPCS: 36415; 80053

== ENCOUNTER 2024-06-18 07:58 | Outpatient (CLI) | payer MEDICARE, SELFPAY ==
[2024-06-18 08:04] VITALS: BP 154/97; PULSE 84; RESP 16; TEMP 35.6; BMI 34.7
[2024-06-18] MEDS: MethylPREDNISolone 125 MG/2 ML Vial 100 MG IV (08:20)
[2024-06-18] MEDS: DiphenhydrAMINE 50 MG/ML Syringe 12.5 MG IV (08:21)
[2024-06-18] MEDS: Ocrelizumab 600mg Infusion 40 MG IV (08:53)
[2024-06-18 13:14] VITALS: BP 135/77; PULSE 98; RESP 16; TEMP 36; O2SAT 91
[2024-06-18 13:42] VITALS: BP 145/99; PULSE 95; RESP 16; TEMP 35.9; O2SAT 91
[2024-06-18 14:40] VITALS: BP 135/93; PULSE 93; RESP 16
== END 2024-06-18 23:59 | disposition home or self-care (01) ==
LOC: MEDOUTP 07:58
PROVIDERS: Referring Provider Psychiatry & Neurology Sleep Medicine; Visit Provider Psychiatry & Neurology Sleep Medicine
DX: G35 Multiple sclerosis (principal)
CPT/HCPCS: J7040; A4216; J2350

== ENCOUNTER → 2024-07-01 | Outpatient (CLI) | payer MEDICARE, SELFPAY ==
[2024-07-01 10:12] LABS: Absolute Lymphocyte Count 2.18 X10^3/uL (0.83-4.51); Absolute Neutrophil Count 6.9 X10^3/uL (2.0-7.7); Basophil# 0.08 X10^3/uL; Basophil% 0.8 % (0-1); Eosinophil# 0.28 X10^3/uL; Eosinophils% 2.6 % (0-5); Hematocrit 47.9 % (40-54); Hemoglobin 14.9 g/dL (13.0-16.5); Lymphocyte # 2.18 X10^3/ul (0.83-4.51); Lymphocyte % 20.5 % (19-41); Mean Corp Hgb Conc 31.1 g/dL (32-36); Mean Corpuscular Hgb 27.1 pg (27.0-32.0); Mean Corpuscular Volume 87.1 fL (80-94); Mean Platelet Vol. 9.5 fl (6.2-12.0); Monocyte# 1.13 X10^3/uL; Monocyte% 10.7 % (0-10); NRBC Flagged by Analyzer 0 % (0-5); Neutrophil # 6.89 X10^3/uL (2.7-7.7); Neutrophil % 64.9 % (47-70); Platelet Count 261 K/mm3 (150-450); RBC Distribution Width CV 14.6 % (11.6-14.6); RBC Distribution Width SD 46.8 fl (35.1-43.9); White Blood Count 10.6 K/mm3 (4.4-11.0)
[2024-07-01 10:53] LABS: ALB/GLOB Ratio 0.7 RATIO (0.9-2.4); AST(SGOT) 12 U/L (15-37); Alanine Aminotransfer ALT/SGPT 19 U/L (16-61); Alkaline Phosphatase 125 U/L (45-117); Anion Gap 6 (5-15); BUN 23 mg/dL (7-18); BUN/Creat Ratio 15.1 RATIO (10-20); Calcium,Total 9.6 mg/dL (8.5-10.1); Chloride 110 mmol/L (98-107); Cholesterol 134 mg/dL (200); Creatinine, Serum 1.52 mg/dL (0.70-1.30); EST Glomerular Filtration Rate 49 mL/min (>60); Est Glom Filt Rate - Afr Amer 59 mL/min (>60); Globulin 4.3 g/dL (2.2-4.2); Glucose 112 mg/dL (74-106); High Density Lipoprotein 46 mg/dL; Potassium 4.1 mmol/L (3.5-5.1); Protein, Total 7.3 g/dL (6.4-8.2); Sodium Level 142 mmol/L (136-145); Triglycerides 213 mg/dL; Very Low Density Lipoprotein 43 mg/dL (5-40)
[2024-07-03 10:41] LABS: Immunoglobulin A 297 mg/dL (61-437); Immunoglobulin G 957 mg/dL (603-1613); Immunoglobulin M 16 mg/dL (20-172)
== END | disposition home or self-care (01) ==
LOC: MTLAB 07:57
PROVIDERS: Physician Assistant Medical; PCP Internal Medicine; Referring Provider Physician Assistant; Visit Provider Physician Assistant
DX: G35 Multiple sclerosis (principal); E78.00 Pure hypercholesterolemia, unspecified
CPT/HCPCS: 36415; 80053; 80061; 82784; 85025

== ENCOUNTER → 2024-08-17 | Outpatient (CLI) | payer MEDICARE, SELFPAY | END | disposition home or self-care (01) | LOC: SL 11:14 | PROVIDERS: PCP Internal Medicine; Referring Provider Nurse Practitioner Acute Care; Visit Provider Nurse Practitioner Acute Care | DX: G47.33 Obstructive sleep apnea (adult) (pediatric) (principal) ==

== ENCOUNTER 2024-12-17 08:04 | Outpatient (CLI) | payer MEDICARE, SELFPAY ==
[2024-12-17] MEDS: MethylPREDNISolone 125 MG/2 ML Vial 100 MG IV (08:32)
[2024-12-17] MEDS: DiphenhydrAMINE 50 MG/ML Syringe 12.5 MG IV (08:32)
[2024-12-17 08:50] VITALS: BP 124/67; PULSE 72; RESP 16; TEMP 35.9
[2024-12-17] MEDS: Ocrelizumab 600mg Infusion 40 MG IV (09:15)
[2024-12-17 14:06] VITALS: BP 129/58; PULSE 66
== END 2024-12-17 23:59 | disposition home or self-care (01) ==
LOC: MEDOUTP 08:05
PROVIDERS: PCP Internal Medicine; Referring Provider Psychiatry & Neurology Sleep Medicine; Visit Provider Psychiatry & Neurology Sleep Medicine
DX: G35 Multiple sclerosis (principal)
CPT/HCPCS: A4216; J2350

== ENCOUNTER 2025-01-10 18:47 | Emergency (ER) | payer MEDICARE, SELFPAY ==
[2025-01-10] VITALS (11 sets, daily range): BP systolic 72–149; BP diastolic 35–109; PULSE 22–76; RESP 11–19; TEMP 36.5–36.8; O2SAT 92–99; BMI 36.3
--- NOTE | 2025-01-10 18:55 | ED.RN ---
dr yang at bedside
--- NOTE | 2025-01-10 19:02 | ED.RN ---
new pacer pads placed on patient
--- NOTE | 2025-01-10 19:06 | ED.RN ---
dr. yang speaking to dr. guzman
[2025-01-10 19:17] LABS: Absolute Lymphocyte Count 2.44 X10^3/uL (0.83-4.51); Absolute Neutrophil Count 2.7 X10^3/uL (2.0-7.7); Basophil# 0.02 X10^3/uL; Basophil% 0.3 % (0-1); Hematocrit 46.9 % (40-54); Hemoglobin 15.2 g/dL (13.0-16.5); Lymphocyte # 2.44 X10^3/ul (0.83-4.51); Lymphocyte % 40.3 % (19-41); Mean Corp Hgb Conc 32.4 g/dL (32-36); Mean Corpuscular Hgb 28.3 pg (27.0-32.0); Mean Corpuscular Volume 87.2 fL (80-94); Mean Platelet Vol. 10.2 fl (6.2-12.0); Monocyte# 0.85 X10^3/uL; NRBC Flagged by Analyzer 0 % (0-5); Neutrophil % 44.7 % (47-70); Platelet Count 188 K/mm3 (150-450); RBC Distribution Width CV 14.6 % (11.6-14.6); RBC Distribution Width SD 46.6 fl (35.1-43.9); Red Blood Count 5.38 M/mm3 (4.6-6.2); White Blood Count 6.1 K/mm3 (4.4-11.0)
[2025-01-10] MEDS: Ondansetron 4 MG/2 ML Vial IV (19:20)
--- NOTE | 2025-01-10 19:20 | RAD_ITS ---
PROCEDURE: Portable upright chest radiograph, two views REASON FOR EXAM: Dyspnea TECHNIQUE: Portable upright chest radiograph performed. COMPARISON: 01/28/2024 FINDINGS: Low depth of inspiration and similar prominence of the cardiomediastinal silhouette. Bones are osteopenic. The patient is rotated to the right. No pneumothorax. There is similar elevation of the left hemidiaphragm. Streaky opacities project at the lung bases, similar to the prior study. RAD/Chest 1 View (Portable) IMPRESSION: Suboptimal examination of the chest as described above. Mild rightward rotatio n. Similar streaky opacities at the lung bases, which could be due to areas of sca rring or subsegmental atelectasis. If there are persistent symptoms or clinical concern, short-term follow-up chest CT evaluati on may be considered. Reading Location: [facility]
--- NOTE | 2025-01-10 19:23 | ED.RN ---
Called [facility] to initiate transfer request @ 1912. They informed us that pt would be put on a wait list and would have to be admitted to our hospital while waiting due to being full if we proceeded with transfer. Then called [facility] instead per family's request @ 1914, they informed us of the same as [facility] and every campus is full/would require being wait listed. Next called [facility] @ 1919, they took pt information and requested face sheet to be faxed. Will call us back shortly.
[2025-01-10 19:24] LABS: International Normalized Ratio 1.1
[2025-01-10 19:29] LABS: Partial Thromboplast Time 30.6 Seconds (24.1-36.2)
[2025-01-10 19:39] LABS: ALB/GLOB Ratio 0.7 RATIO (0.9-2.4); AST(SGOT) 18 U/L (15-37); Alanine Aminotransfer ALT/SGPT 26 U/L (16-61); Albumin, Serum 2.7 g/dL (3.2-5.0); Alkaline Phosphatase 104 U/L (45-117); Anion Gap 5 (5-15); BUN 24 mg/dL (7-18); BUN/Creat Ratio 16.6 RATIO (10-20); Calcium,Total 9.3 mg/dL (8.5-10.1); Chloride 105 mmol/L (98-107); Creatinine, Serum 1.45 mg/dL (0.70-1.30); EST Glomerular Filtration Rate 52 mL/min (>60); Est Glom Filt Rate - Afr Amer 62 mL/min (>60); Estimated Creatinine Clearance 78.17 ml/min; Globulin 3.9 g/dL (2.2-4.2); Glucose 104 mg/dL (74-106); Potassium 4.1 mmol/L (3.5-5.1); Protein, Total 6.6 g/dL (6.4-8.2); Sodium Level 140 mmol/L (136-145); Troponin-I HS 23 pg/mL (3.0-78.0)
[2025-01-10 20:06] LABS: Lactic Acid 1.2 mmol/L (0.4-1.9)
[2025-01-10] MEDS: Atropine Sulfate 1 MG/10 ML Syringe IV (20:13)
--- NOTE | 2025-01-10 20:21 | ED.RN ---
signed consent for procedure
[2025-01-10 20:22] LABS: BNP,B-Type NATRIURETIC PEPTIDE 387.8 pg/mL (0-100)
[2025-01-10] MEDS: DOPamine IV 800 MG/250 ML IV.SOLN. 13.4 MG CONT INF (20:26)
--- NOTE | 2025-01-10 20:35 | ED.RN ---
called [facility] to arrange transport for pt, they accepted flight @2034, landing eta 12-15 min ([phone]).
[2025-01-10] MEDS: Etomidate 20 MG/10 ML Vial IV (20:54)
[2025-01-10] MEDS: Rocuronium Bromide 50 MG/5 ML Vial 75 MG IV (21:00)
[2025-01-10] MEDS: Ketamine HCl 500 MG/5 ML Vial 142 MG IV (21:03)
--- NOTE | 2025-01-10 21:06 | ED.RN ---
temporary pacemaker insertion unsuccessful
--- NOTE | 2025-01-10 21:11 | ED.RN ---
intubation time 2053, 7.5 tube with positive color change and measuring 27@lip
--- NOTE | 2025-01-10 21:12 | EX.ED.DYSGE1 ---
HPI History of Present Illness Chief Complaint: Nausea/Vomiting Detail of Chief Complaint: Nausea vomiting, not feeling well and low heart rate Informant: patient, spouse/S.O. and EMS Onset/Context/Timing Onset: Days (Past 2 to 3 days) Context: Sudden Onset Timing: Continuous and Waxes and wanes Quality: Feeling unwell with nausea vomiting generalized weakness Location: Presents from home by EMS Current Severity: Severe Maximum Severity: Severe Worsened by: Nothing Relieved by: Nothing Associated Symptoms Associated Symptoms: Vague viral-like symptoms as well has low heart rate Narrative Narrative: Patient is a 69-year-old male. Prehospital EKG was sent. Patient has a bradycardia with rate of 2024. There is artifact and only determine if this is sinus bradycardia versus secondary block versus third-degree block. Patient states he does not feel well. Patient does not ambulate. He is wheel chair bound. He has MS with significant deficit left side. He is seen by the [facility]. He is on carvedilol and lisinopril. He is on no other cardiovascular meds. He has history of obstructive sleep apnea, hyperlipidemia, hypertension, MS, pulmonary embolus, saddle 2018, and bladder cancer. He does have a living will. His is the POA. They are agreeable to pacemaker. They are agreeable to temporary life support. Prior similar symptoms: No Recent Illness/Hospitalization: No PFSH [facility] Medical History Wears glasses Cancer Depression Uses wheelchair High cholesterol Easy bruising Excessive bleeding Gastric reflux Non-smoker CPAP (continuous positive airway pressure) dependence Sleep apnea On home oxygen therapy History of edema Cardiology follow-up encounter History of echocardiogram Normal stress echocardiogram History of atrial fibrillation COVID-19 Chronic anticoagulation Hx of multiple sclerosis Syncope due to orthostatic hypotension Recurrent UTI Hyperlipidemia Abnormal EKG Obstructive sleep apnea Kidney stones Paroxysmal atrial fibrillation Atrial septal defect Hypertension Pulmonary embolism Bladder cancer Multiple sclerosis Home Medications ?Medication ?Instructions ?Recorded ?Last Taken ?Type ocrelizumab 30 mg/mL intravenous 600 mg IV .COMPLEX multiple 11/04/17 10/03/23 History solution (Ocrevus) sclerosis cholecalciferol (vitamin D3) 25 5,000 unit PO DAILY supplement 05/28/18 01/27/24 History mcg (1,000 unit) tablet multivitamin with folic acid 400 1 tab PO DAILY supplement 05/28/18 01/27/24 History mcg tablet pantoprazole 40 mg tablet,delayed 40 mg PO DAILY reflux 12/01/19 01/28/24 History release potassium citrate 15 mEq (1,620 15 meq PO BID supplement ##60 02/04/20 01/27/24 Rx mg) tablet,extended release albuterol sulfate 2.5 mg/3 mL 2.5 mg (3 mL) inhalation Q4H PRN 01/17/21 08/18/23 Rx (0.083 %) solution for nebulization shortness of breath or wheezing #180 vials duloxetine 60 mg capsule,delayed 60 mg PO QHS nerve 07/02/22 01/27/24 History release meclizine 25 mg tablet 25 mg PO DAILY PRN Dizziness 07/02/22 08/17/23 History tamsulosin 0.4 mg capsule 0.4 mg PO DAILY prostate 07/02/22 01/27/24 History lisdexamfetamine 50 mg capsule 50 mg PO DAILY MS 07/03/23 01/27/24 History sodium bicarbonate 650 mg tablet 650 mg PO BID supplement 07/03/23 01/27/24 History vitamin E 200 unit capsule 400 unit PO DAILY vitamin 08/18/23 01/27/24 History sodium chloride 0.65 % nasal spray 2 spray NASAL TID PRN PRN NASAL 08/26/23 Unknown Rx aerosol DRYNESS #100 mL tizanidine 4 mg tablet 4 mg PO PRN 09/23/23 Unknown History sennosides 8.6 mg-docusate sodium 2 tab PO PRN 01/20/24 Unknown History 50 mg tablet (Stool Softener-Stimulant Laxative) simvastatin 20 mg tablet 20 mg PO QHS for cholesterol #90 04/16/24 Unknown Rx TABLETS apixaban 5 mg tablet 5 mg PO BID blood thinner #180 tabs 07/19/24 Unknown Rx lisinopril 10 mg tablet 10 mg PO QHS 09/28/24 Unknown History carvedilol 12.5 mg tablet See Rx Instructions .Route 11/01/24 Unknown Rx .COMPLEX #180 tabs furosemide 40 mg tablet (Lasix) 40 mg PO DAILY #90 tabs 11/01/24 Unknown Rx cephalexin 500 mg capsule 500 mg PO TID 01/10/25 Unknown History Allergy/AdvReac Type Severity Reaction Status Date / Time No Known Allergies Allergy Verified 09/28/24 11:44 Family History Father CAD (coronary artery disease) Hypertension Myocardial infarction Mother Hypertension Sister Multiple sclerosis Surgical History History of esophagogastroduodenoscopy (EGD) History of cystoscopy S/P ureteral stent placement History of bladder surgery History of lithotripsy History of vasectomy Social History household members: spouse and family Smoking Status: Never smoker alcohol intake: never substance use type: does not use caffeine: Yes (very little) ROS ROS ED Constitutional Constitutional ED: Reports fever(s) Eyes Eyes: Denies blurry vision, change in vision or diplopia ENT ENT ED: Denies ear pain or rhinorrhea Cardiovascular Cardiovascular: Reports orthopnea; Denies chest pain or palpitations Respiratory/Chest Respiratory/Chest: Reports dyspnea and orthopnea; Denies cough Gastrointestinal Gastrointestinal: Reports nausea and vomiting; Denies abdominal pain or diarrhea Musculoskeletal Musculoskeletal: Denies arthralgias or myalgias Integumentary Denies rash Neurologic Neurologic: Reports weakness; Denies headache(s) Hematologic/Lymphatic Hematologic/Lymphatic: Reports easy bleeding and easy bruising EXAM Physical Exam Const Vital Signs: 01/10/25 18:48 01/10/25 19:02 01/10/25 19:07 Temperature 97.7 F L Temperature Source Temporal Pulse Rate 24 L 76 Respiratory Rate 15 19 H Blood Pressure 138/109 H 147/56 H Blood Pressure Mean 118 86 Pulse Ox 98 Oxygen Delivery Method Room Air Oxygen Flow Rate (L/min) 01/10/25 19:13 01/10/25 19:24 01/10/25 20:06 Temperature 98.3 F Temperature Source Oral Pulse Rate 26 L 24 L 25 L Respiratory Rate 13 14 18 Blood Pressure 149/58 H 108/84 H 73/35 L Blood Pressure Mean 88 92 47 Pulse Ox 95 97 98 Oxygen Delivery Method Nasal Cannula Nasal Cannula Nasal Cannula Oxygen Flow Rate (L/min) 4 4 4 01/10/25 20:28 01/10/25 20:36 01/10/25 20:40 Temperature Temperature Source Pulse Rate 31 L 33 L 29 L Respiratory Rate 15 16 Blood Pressure 102/89 H 119/88 H 72/44 L Blood Pressure Mean 93 98 53 Pulse Ox 99 99 Oxygen Delivery Method Nasal Cannula Nasal Cannula Oxygen Flow Rate (L/min) 4 5 01/10/25 21:05 01/10/25 21:09 Temperature 97.8 F Temperature Source Pulse Rate 29 L 22 L Respiratory Rate 11 L 16 Blood Pressure 111/89 H 127/64 H Blood Pressure Mean 96 85 Pulse Ox 93 92 Oxygen Delivery Method Mechanical Ventilator Oxygen Flow Rate (L/min) Patient's vital signs noted. Positive well nourished, well developed and obese General Appearance ED: well developed, NAD and pallor Nutritional Appearance: obese HEENT Reports dry mucous membranes Negative for trauma Mouth ED: Yes dry mucous membranes Mouth: dry mucous membranes Eyes PERRL and EOMs intact bilaterally General Eye ED: Negative for pale conjunctiva or scleral icterus Neck no lymphadenopathy, supple and no JVD Chest Wall inspection of chest normal and palpation of chest normal Resp normal respiratory effort and No clear to auscultation bilaterally Auscultation: rales bilateral base Cardio regular rate; Negative for no murmurs Rate: bradycardia GI normal to inspection, nondistended, normoactive bowel sounds, non-tender and non-distended; Negative for hepatosplenomegaly Palpation: soft Back/Spine no CVA tenderness Extremity Negative for normal to inspection Extremity Narrative: Patient has dependent edema lower extremity exam obvious neurologic deficit. General Extremety ED: Yes edema General Extremity: edema Neuro oriented x3 and CN's II-XII intact bilaterally Sensorium / Orientation: alert Psych mental status grossly normal Skin no wounds and skin turgor normal General Skin Exam: pallor MDM MDM MDM Narrative Medical decision making narrative: Concern patient may have viral infection. Will obtain rapid COVID influenza RSV. Patient is in third-degree heart block with rate between 20 and 25. Patient's initial blood pressure 138/109. He deteriorated to 108. He then continued to drop his pressure to as low as 41 systolic. He did not have capture with transcutaneous pacemaker. When patient arrived and was noted to be in third-degree block cardiology was paged. I was told by cardiology on-call that Dr. Escudero is out of town. He recommended transfer. Spoke with Dr. Contreras fellow at [facility]. Her attending is Dr. Alonso. EKG and rhythm strips were sent. She is in agreement. Patient was excepted. Plan was ground transport critical care. Since patient deteriorated attempt was made at cannulating the right IJ. Unsuccessful and was leery attempting multiple times because of the anatomy of his vessels overlapping 1 another and the fact that he is on Eliquis. In light of this a right subclavian approach was taken. The pacemaker sheath was introduced without difficulty. Transvenous pacer was placed. There was transient capture with heart rate up to 45 and improvement was pressure however this was transient. In light of this and the fact that he remained hypotensive he was started on dobutamine drip. His pressure has improved. His heart rate is 25-30. He did receive two 1 mg IV boluses of atropine with no effect. While I was attempting to place the transvenous pacemaker he became confused seems slightly diaphoretic and cyanotic. Pulse ox dropped. The transvenous pacing wire attempt was aborted. Patient was prepped for orotracheal ovation. He was successfully orotracheally intubated with a 7.5 endotracheal tube using glide scope. Patient was premedicated with 20 mg of etomidate and 75 mg of rocuronium. Because of patient's hemodynamic instability he was sedated using 1 mg/kg of ketamine. The fellow and attending at [facility] was updated. I did give report to the [facility] flight team. Lab Data Attestation: I reviewed the patient's lab results. Lab results narrative: CBC is unremarkable. Lactate is normal. Coags are normal. Basic metabolic panel is remarked for an elevated BUN/creatinine of 24 and 1.45. BNP was elevated at 387. First troponin was normal at 23. Rapid antigen was positive for influenza A. Labs: Laboratory Results - last 24 hr 01/10/25 01/10/25 18:55 19:15 WBC 6.1 RBC 5.38 Hgb 15.2 Hct 46.9 MCV 87.2 MCH 28.3 MCHC 32.4 RDW Std Deviation 46.6 H RDW Coeff of Bravo 14.6 Plt Count 188 MPV 10.2 Immature Gran % (Auto) 0.700 Neut % (Auto) 44.7 L Lymph % (Auto) 40.3 Moody % (Auto) 14.0 H Eos % (Auto) 0.0 Baso % (Auto) 0.3 Absolute Neuts (auto) 2.7 Absolute Lymphs (auto) 2.44 Nucleated RBC % 0 PT 14.0 INR 1.1 APTT 30.6 Sodium 140 Potassium 4.1 Chloride 105 Carbon Dioxide 30.0 Anion Gap 5 BUN 24 H Creatinine 1.45 H Estim Creat Clear Calc 78.17 Est GFR (MDRD) Af Amer 62 Est GFR (MDRD) Non-Af 52 L BUN/Creatinine Ratio 16.6 Glucose 104 Lactic Acid 1.2 Calcium 9.3 Total Bilirubin 0.30 AST 18 ALT 26 Alkaline Phosphatase 104 Troponin I High Sens 23 B-Natriuretic Peptide 387.8 H Total Protein 6.6 Albumin 2.7 L Globulin 3.9 Albumin/Globulin Ratio 0.7 L Radiography Chest X-Ray - ED: Read by ED Physician (First chest x-ray is suboptimal because of rotation and poor in story volume. There is some streakiness noted at the bases which was noted on prior x-ray.) and - (Chest x-ray obtained after intubation. And trach tube is a proposition. The transvenous Pinea-C wire was noted to be curled in the right atrium. This was removed. Patient is now in heart failure.) Diagnostic Testing: Clinical Impression(s) from Imaging Studies Chest X-Ray 01/10/25 19:20 IMPRESSION: Suboptimal examination of the chest as described above. Mild rightward rotation. Similar streaky opacities at the lung bases, which could be due to areas of scarring or subsegmental atelectasis. If there are persistent symptoms or clinical concern, short-term follow-up chest CT evaluation may be considered. Reading Location: [facility] Treatment and Re-Evaluation :: Please read nursing notes for administration times and verbal orders for meds given by me. Critical Care Time Critical Care Time: Yes Critical care time (excluding procedures): 30-74 minutes, 75-104 minutes (77), Including time spent: (History, physical, documentation, independent interpretation of laboratory results, chest x-rays, discussion with family regarding CODE STATUS), Discussing w/Patient &/or Family/Orthotics Assistant (Discussion with patient and family regarding CODE STATUS. is POA. He does have a living will. They are agreeable to transvenous pacing wire. They are agreeable to permanent pacemaker. They are agreeable to ventilatory support if short-term.), Discussing w/Consultants (Spoke with cardiology at [facility], [facility] and spoke with fellow at [facility] who accepted patient on behalf of Dr. Alonso.), Arranging Admission or Transfer (Critical care transport for ground initially. This was changed to air. Reason this was changed to areas patient is hemodynamically stable with third-degree heart block and unable to pace transcutaneously.) and Performing Direct Patient Care at Bedside Discharge Plan Triage Chief Complaint: Nausea/Vomiting ED Provider: Eber Escobar Dx/Rx/DC Orders Clinical Impression: Third degree heart block, Atrial septal defect, Obstructive sleep apnea, Acute hypotension, Acute hypoxic respiratory failure, Flash pulmonary edema, Anticoagulant long-term use Prescriptions: No Action ocrelizumab [Ocrevus] 30 mg/mL solution 600 mg IV .COMPLEX Patient Comments: every 6 months Rx Instructions: every 6 months sodium bicarbonate 650 mg tablet 650 mg PO BID Patient Comments: TAKE 1 TABLET BY MOUTH TWICE A DAY lisinopril 10 mg tablet 10 mg PO QHS Patient Comments: [NO ORIGINAL SIG] cholecalciferol (vitamin D3) 1,000 UNIT tablet 5,000 unit PO DAILY Patient Comments: vitamin multivitamin with folic acid 1 TABLET tablet 1 tab PO DAILY Patient Comments: vitamin pantoprazole 40 MG tablet 40 mg PO DAILY lisdexamfetamine 50 mg capsule 50 mg PO DAILY Patient Comments: add potassium citrate 15 MEQ tablet extended release 15 meq PO BID Qty: 60 5RF meclizine 25 mg tablet 25 mg PO DAILY PRN (Reason: Dizziness) Patient Comments: TAKE 1 TABLET BY MOUTH TWICE A DAY NEEDED duloxetine 60 mg capsule,delayed release(DR/EC) 60 mg PO QHS Patient Comments: TAKE 1 CAPSULE BY MOUTH EVERY DAY tamsulosin 0.4 mg capsule 0.4 mg PO DAILY tizanidine 4 mg tablet 4 mg PO PRN sennosides-docusate sodium [Stool Softener-Stimulant Laxat] 8.6-50 mg Tablet 2 tab PO PRN vitamin E 200 unit capsule 400 unit PO DAILY sodium chloride 0.65 % Aerosol,[place] 2 spray NASAL TID PRN PRN (Reason: NASAL DRYNESS) Qty: 100 0RF cephalexin 500 mg capsule 500 mg PO TID albuterol sulfate 2.5 mg /3 mL (0.083 %) solution for nebulization 2.5 mg INHALATION Q4H PRN (Reason: shortness of breath or wheezing) Qty: 180 6RF simvastatin 20 mg tablet 20 mg PO QHS Qty: 90 3RF apixaban 5 mg tablet 5 mg PO BID Qty: 180 6RF Patient Comments: STOP 3 DAYS PRIOR furosemide [Lasix] 40 mg tablet 40 mg PO DAILY Qty: 90 3RF carvedilol 12.5 mg tablet See Rx Instructions .ROUTE .COMPLEX Qty: 180 3RF Dose Instruction: TAKE 1 TABLET BY MOUTH TWICE A DAY WITH FOOD Rx Instructions: TAKE 1 TABLET BY MOUTH TWICE A DAY WITH FOOD Primary Care Provider: Robert John Referrals: Robert John MD [Primary Care Provider] - Print Language: [place] Disposition Disposition: Acute Care Hospital Discharge Location: [facility]
--- NOTE | 2025-01-10 21:21 | ED.RN ---
life flight in room, moving pt. over onto their monitor and equipment
--- NOTE | 2025-01-10 21:54 | RAD_ITS ---
PROCEDURE: Chest radiograph REASON FOR EXAM: Line placement TECHNIQUE: Frontal view of the chest COMPARISON: 01/10/2025 FINDINGS: Endotracheal tube terminates at the level of the [place]. External cardiac pacer which coils and terminates along the upper mediastinum. Mild cardiomegaly. Mild bilateral airspace opacities. Probable small left pleural effusion. No sizable pneumothorax. RAD/Chest 1 View (Portable) IMPRESSION: 1. Enteric tube terminating at the [place]. Recommend 2 cm of retraction. 2. External cardiac pacer lead coiling and terminating along the upper mediasti num. Please correlate. 3. Bilateral airspace opacities and probable small left effusion. Reading Location: [facility]
== END 2025-01-10 21:56 | disposition short-term general hospital (02) ==
PROVIDERS: Emergency Provider Emergency Medicine; PCP Internal Medicine; Visit Provider Emergency Medicine
DX: R11.2 Nausea with vomiting, unspecified (principal); G35 Multiple sclerosis; J96.01 Acute respiratory failure with hypoxia; J81.0 Acute pulmonary edema; I44.2 Atrioventricular block, complete; I48.0 Paroxysmal atrial fibrillation; Z99.3 Dependence on wheelchair; Q21.10 Atrial septal defect, unspecified; R41.0 Disorientation, unspecified; E78.00 Pure hypercholesterolemia, unspecified; I10 Essential (primary) hypertension; Z79.01 Long term (current) use of anticoagulants; G47.33 Obstructive sleep apnea (adult) (pediatric); I95.9 Hypotension, unspecified; Z79.899 Other long term (current) drug therapy; Z99.89 Dependence on other enabling machines and devices; Z85.51 Personal history of malignant neoplasm of bladder; K21.9 Gastro-esophageal reflux disease without esophagitis; Z98.52 Vasectomy status; R50.9 Fever, unspecified
CPT/HCPCS: 31500; 71045; 80053; 83605; 83880; 84484; 85025; 85610; 85730; 87631; 93005; 96374; 96375; 99252; 99285; A4216; C1894; G0463; J2405

== ENCOUNTER 2025-06-17 07:43 | Outpatient (CLI) | payer MEDICARE, SELFPAY ==
[2025-06-17 08:07] VITALS: BP 119/92; PULSE 91; RESP 16; TEMP 36.2; O2SAT 94; BMI 34.7
[2025-06-17] MEDS: DiphenhydrAMINE 50 MG/ML Syringe 12.5 MG IV (09:00)
[2025-06-17] MEDS: Ocrelizumab 600mg Infusion 40 MG IV (09:35)
[2025-06-17 14:54] VITALS: BP 130/75; PULSE 106; RESP 16; TEMP 36.1
== END 2025-06-17 23:59 | disposition home or self-care (01) ==
LOC: MEDOUTP 07:44
PROVIDERS: PCP Internal Medicine; Referring Provider Physician Assistant; Visit Provider Psychiatry & Neurology Sleep Medicine
DX: G35 Multiple sclerosis (principal)
CPT/HCPCS: 96365; 96366; 96375; A4216; J2350; J2405

== ENCOUNTER → 2025-10-10 | Outpatient (CLI) | payer MEDICARE, SELFPAY ==
[2025-10-10 11:08] LABS: AST(SGOT) 15 U/L (<=37); Alanine Aminotransfer ALT/SGPT 14 U/L (<=46); Albumin, Serum 3.5 g/dL (3.4-4.8); Alkaline Phosphatase 135 U/L (40-129); Bilirubin, Direct 0.30 mg/dL (0.00-0.30); Cholesterol 133 mg/dL (<=200); Globulin 2.7 g/dL (2.2-4.2); Low Density Lipoprotein Calc. 63 mg/dL; Triglycerides 188 mg/dL; Very Low Density Lipoprotein 38 mg/dL (5-40); cholesterol:hdl ratio screen 3.46
== END | disposition home or self-care (01) ==
LOC: MTLAB 08:05
PROVIDERS: PCP Internal Medicine; Referring Provider Physician Assistant Medical; Visit Provider Physician Assistant Medical
DX: E78.5 Hyperlipidemia, unspecified (principal)
CPT/HCPCS: 36415; 80061; 80076